=== PATIENT | male | born 1945 | race Caucasian/White ===

== ENCOUNTER 2023-08-26 13:48 | Outpatient (AMB) | payer OTHER, SELFPAY ==
--- NOTE | 2023-08-26 13:50 | A.OFFVIS_ITS ---
Vital Signs 08/26/23 13:54 Height 5 ft 10 in Weight 192 lb 4 oz BMI 27.6 BP 126/72 Blood Pressure Location Rt brachial Position Sitting Pulse 59 Pulse Source Pulse Oximeter Pulse Oximetry (%) 96 Oxygen Delivery Method Nasal Cannula Intake Visit Reasons: COPD Allergies No Known Allergies Allergy (Verified 08/26/23 14:01) HPI HPI COPD: Details: Nick is a pleasant 78 year old male, former smoker with 30 pack year history quit 30+ years ago, with underlying asthma, COPD, chronic respiratory failure on 2 L supplemental oxygen, CAD, Atrial fibrillation s/p ablation x 2 on pradaxa, AMY on CPAP and GERD. He was referred by PCP for pulmonary evaluation. He reports suboptimal control on Trelegy 100 mcg and albuterol MDI with moderate dyspnea on exertion and intermittent dry cough. He denies wheezing or chest tightness. He recently moved from [place] and was previously under the care of p ulmonology for COPD as well as AMY. He reports being due for PFT and denies any recent imaging. He has been on supplemental oxygen for the last three years. He receives his supplemental oxygen through [facility] in [place]. he has a concentrator at home and uses an Inogen device when he leaves the house. He checks his O2 at home, mostly at rest, and never gets readings below 95% on 2L. He reports a hosp italizations secondary to pneumonia last year otherwise has not required any prednisone or antibiotics. He reports sleep study many years ago, and has not had anyone monitoring compliance or effectiveness of therapy. Despite compliance of CPAP therapy he continues to be symptomatic with significant day time fatigue. He is under the care of cardiology. and denies any palpitations, dizziness or chest pain with exertion. He was in the [employer] x 3 years and reports toxic exposures to agent orange otherwise denies any occupational exposures. He denies any pertinent family history. [facility] Social History (Updated 08/26/23 @ 13:59 by Anju Parnell [facility]) Patient Tobacco Use Status: Former Tobacco user Quit Date: 1984 Cigarette Packs Per Day: 1 Review of Systems Const Denies chills, Denies excessive sweating, Denies fever(s), Denies headache(s) and Denies night sweats Eyes Denies dry eyes, Denies irritation and Denies itchy eyes ENT Reports Normal hearing present, Denies headache(s), Denies nasal congestion, Denies nasal discharge, Denies post nasal drip and Denies sore throat Card Denies chest pain, Denies chest pain at rest, Denies chest pain with activity, Denies claudication, Denies leg edema, Denies orthopnea and Denies paroxysmal nocturnal dyspnea Resp Denies chest congestion, Denies excessive phlegm production, Denies pain on inspiration, Denies pain with cough, Denies stridor and Denies wheezing Musc Denies myalgias Neuro Reports Normal hearing present and Denies headache(s) Endo Denies excessive sweating Sedrick/Lymph Denies lymphadenopathy Aller/Immun Denies itchy eyes, Denies seasonal rhinorrhea and Denies wheezing Physical Exam Vital Signs: Last Vital Signs Pulse 59 08/26/23 13:54 BP 126/72 08/26/23 13:54 Pulse Ox 96 08/26/23 13:54 Oxygen Delivery Method Nasal Cannula 08/26/23 13:54 BMI result Body Mass Index 27.6 Const General: cooperative, healthy appearing, comfortable, no acute distress, well developed and alert Nutritional Appearance: obese Orientation/consciousness: patient oriented x3 Limitations: no limitations HEENT Head: Yes normal to inspection, Yes normocephalic and Yes atraumatic Ears: hearing grossly normal bilaterally and external ears normal Eyes General: appearance normal, both eyes and all related structures Eyelids: Yes eyelids normal Sclerae: sclerae normal EOM: EOMs intact bilaterally Neck Neck: Yes normal visual inspection and Yes no lymphadenopathy Lymphatic: no lymphadenopathy noted Chest Chest palpation & inspection: normal inspection of the chest Resp Effort & Inspection: normal respiratory effort, able to speak in complete sentences, no audible wheezes, no cough, no stridor, not tachypneic, no tripod positioning and no use of accessory muscles Cardio Jugular venous distension: no JVD Rate: regular rate Skin Other: warm, dry General skin exam: no rashes or lesions noted Neuro General: patient oriented x3 Cranial nerves: Yes Normal hearing present Cognition (Neuro): normal cognition Gait exam (Neuro): Normal gait present Extrem General: Yes normal to inspection, Yes capillary refill normal, Yes no clubbing, cyanosis or edema and Yes no pedal edema Psych Appearance: grossly normal and well kempt Speech and movement: Normal speech and movement present and Clear speech present Affect: normal affect Attitude: cooperative Thought process: Normal thought process present Thought content: Normal thought content present Insight: Good insight present (Psych) Judgement: Good judgement present (Psych) Office Procedures 6 Minute Walk Time:: 14:42 SPO2 % at rest: 98 Pulse at rest: 61 SPO2 % during excercise: 97 Pulse during excercise: 95 SPO2 % after excercise: 97 Pulse after excercise: 78 Distance in yards walked: 150 Gissel Score: 6 Performance Observations:: Patient walked unassisted on level ground at a slow to moderate pace. Patient maintained O2 saturation of 97% or greater and pulse rate of 95 or less. No acute respiratory distress. Patient does report shortness of breath with walking on an incline or uphill or after physical activity like mowing the lawn. Patient did not require supplemental O2. [id number] - 6 Minute Walk Assessment & Plan Assessment & Plan (1) Nocturnal hypoxemia: Code(s): G47.34 - Idiopathic sleep related nonobstructive alveolar hypoventilation Category: Medical (2) Obstructive sleep apnea: Code(s): G47.33 - Obstructive sleep apnea (adult) (pediatric) Category: Medical (3) COPD (chronic obstructive pulmonary disease): Code(s): J44.9 - Chronic obstructive pulmonary disease, unspecified Category: Medical (4) Daytime somnolence: Code(s): R40.0 - Somnolence Category: Medical Plan Nick's symptoms are likely related to pulmonary, cardiac and deconditioning etiologies. He reports continued dyspnea on exertion, despite Trelegy 100 mcg, will increase to 200 mcg. Will also send for PFT and chest CT to assess COPD severity, as referral noted end stage COPD. Patient is also interested in switching CPAP therapy management to this office. Given that he is still symptomatic on current therapy and in need of a new machine, will send for in lab titration study. All questions were answered and patient is in agreement of plan. Will follow up to review results and response to inhaler. Orders: Orders PFT pulmonary function test Today J44.9 - Chronic obstructive pulmonary disease, unspecified AMB 6 minute walk Today J44.9 - Chronic obstructive pulmonary disease, unspecified CT chest wo IV con Today J44.9 - Chronic obstructive pulmonary disease, unspecified RT PSG in-lab sleep titration Today G47.33 - Obstructive sleep apnea (adult) (pediatric), G47.34 - Idiopathic sleep related nonobstructive alveolar hypoventilation, R40.0 - Somnolence Medications: New uvlwyendxtn-ufrpwwkyt-cigslyfx 200-62.5-25 mcg (Trelegy Ellipta) 1 inh inhalation DAILY 180 ea 1RF Coding Level of Care Code New Pt Level 4 (30561) Diagnoses Nocturnal hypoxemia G47.34 Obstructive sleep apnea G47.33 COPD (chronic obstructive pulmonary disease) J44.9 Daytime somnolence R40.0 CPT Codes Coding ([id number])
[2023-08-26 13:54] VITALS: BP 126/72; PULSE 59; O2SAT 96; BMI 27.6
[2023-08-26 15:19] VITALS: PULSE 61; O2SAT 98
== END 2023-08-26 15:25 | disposition home or self-care (01) ==
PROVIDERS: PCP Hospitalist; Visit Provider Nurse Practitioner Family
DX: G47.34 Idiopathic sleep related nonobstructive alveolar hypoventilation (principal); G47.33 Obstructive sleep apnea (adult) (pediatric); J44.9 Chronic obstructive pulmonary disease, unspecified; R40.0 Somnolence
CPT/HCPCS: 94618; 99204

== ENCOUNTER → 2023-08-26 13:48 | Outpatient (BNVA) | payer OTHER, SELFPAY | PROVIDERS: PCP Hospitalist; Visit Provider Nurse Practitioner Family | DX: J44.9 Chronic obstructive pulmonary disease, unspecified (principal); G47.34 Idiopathic sleep related nonobstructive alveolar hypoventilation; G47.33 Obstructive sleep apnea (adult) (pediatric); R40.0 Somnolence; Z79.899 Other long term (current) drug therapy | CPT/HCPCS: 94618; 99202 ==

== ENCOUNTER → 2023-10-02 19:30 | Outpatient (REF) | payer OTHER, SELFPAY | LOC: HO.SL 19:30 | PROVIDERS: PCP Hospitalist; Visit Provider Nurse Practitioner Family | DX: G47.33 Obstructive sleep apnea (adult) (pediatric) (principal); G47.34 Idiopathic sleep related nonobstructive alveolar hypoventilation; R40.0 Somnolence | CPT/HCPCS: 95811 ==

== ENCOUNTER → 2023-10-02 20:26 | Outpatient (BNV) | payer OTHER, SELFPAY | PROVIDERS: PCP Hospitalist; Visit Provider Internal Medicine | DX: G47.33 Obstructive sleep apnea (adult) (pediatric) (principal); G47.61 Periodic limb movement disorder | CPT/HCPCS: 95811 ==

== ENCOUNTER 2023-11-19 10:52 | Outpatient (AMB) | payer OTHER, SELFPAY ==
[2023-11-19 10:53] VITALS: BP 118/56; PULSE 66; O2SAT 99; BMI 26.3
--- NOTE | 2023-11-19 10:53 | A.OFFVIS_ITS ---
Vital Signs 11/19/23 10:53 Height 5 ft 10 in Weight 183 lb 4 oz BMI 26.3 BP 118/56 L Blood Pressure Location Lt brachial Position Sitting Pulse 66 Pulse Source Pulse Oximeter Pulse Oximetry (%) 99 Oxygen Delivery Method Room Air Intake Visit Reasons: COPD Allergies No Known Allergies Allergy (Verified 11/19/23 10:56) HPI HPI COPD: Details: Nick is a pleasant 78 year old male, former smoker with 30 pack year history quit 30+ years ago, with underlying asthma, COPD, chronic respiratory failure on 2 L supplemental oxygen, CAD, Atrial fibrillation s/p ablation x 2 on pradaxa, AMY on CPAP and GERD. He was referred by PCP for pulmonary evaluation. At the last visit, Trelegy was increased to 200 mcg wiith moderate improvement in symptoms. He continues to report dyspnea on exertion and intermittent dry cough. He denies wheezing or chest tightness. Since the last visit, he denies any vi sits to urgent care or hospitalizations related to respiratory distress. Today he presents to review PSG results. Of note, his psychologist recently switched his sleep aide and he continues to have diffuculties with prolonged sleep. He can not recall which medication was added, quietapine has been d/c. He was sent for PFT which is scheduled at the end of the month and was unable to make his chest CT appointment. [facility] Social History Patient Tobacco Use Status: Former Tobacco user Cigarette Packs Per Day: 1 Review of Systems Const Denies chills, Denies excessive sweating, Denies fever(s), Denies headache(s) and Denies night sweats Eyes Denies dry eyes, Denies irritation and Denies itchy eyes ENT Reports Normal hearing present, Denies headache(s), Denies nasal congestion, Denies nasal discharge, Denies post nasal drip and Denies sore throat Card Denies chest pain, Denies chest pain at rest, Denies chest pain with activity, Denies claudication, Denies leg edema, Denies orthopnea and Denies paroxysmal nocturnal dyspnea Resp Denies chest congestion, Denies excessive phlegm production, Denies pain on inspiration, Denies pain with cough, Denies stridor and Denies wheezing Musc Denies myalgias Neuro Reports Normal hearing present and Denies headache(s) Endo Denies excessive sweating Sedrick/Lymph Denies lymphadenopathy Aller/Immun Denies itchy eyes, Denies seasonal rhinorrhea and Denies wheezing Physical Exam Vital Signs: Last Vital Signs Pulse 66 11/19/23 10:53 BP 118/56 L 11/19/23 10:53 Pulse Ox 99 11/19/23 10:53 Oxygen Delivery Method Room Air 11/19/23 10:53 BMI result Body Mass Index 26.3 Const General: cooperative, healthy appearing, comfortable, no acute distress, well developed and alert Nutritional Appearance: obese Orientation/consciousness: patient oriented x3 Limitations: no limitations HEENT Head: Yes normal to inspection, Yes normocephalic and Yes atraumatic Ears: hearing grossly normal bilaterally and external ears normal Eyes General: appearance normal, both eyes and all related structures Eyelids: Yes eyelids normal Sclerae: sclerae normal EOM: EOMs intact bilaterally Neck Neck: Yes normal visual inspection and Yes no lymphadenopathy Lymphatic: no lymphadenopathy noted Chest Chest palpation & inspection: normal inspection of the chest Resp Effort & Inspection: normal respiratory effort, able to speak in complete sentences, no audible wheezes, no cough, no stridor, not tachypneic, no tripod positioning and no use of accessory muscles Auscultation: diminished lung sounds Cardio Jugular venous distension: no JVD Rate: regular rate Skin Other: warm, dry General skin exam: no rashes or lesions noted Neuro General: patient oriented x3 Cranial nerves: Yes Normal hearing present Cognition (Neuro): normal cognition Gait exam (Neuro): Normal gait present Extrem General: Yes normal to inspection, Yes capillary refill normal, Yes no clubbing, cyanosis or edema and Yes no pedal edema Psych Appearance: grossly normal and well kempt Speech and movement: Normal speech and movement present and Clear speech present Affect: normal affect Attitude: cooperative Thought process: Normal thought process present Thought content: Normal thought content present Insight: Good insight present (Psych) Judgement: Good judgement present (Psych) Assessment & Plan Assessment & Plan (1) Nocturnal hypoxemia: Code(s): G47.34 - Idiopathic sleep related nonobstructive alveolar hypoventilation Category: Medical (2) Obstructive sleep apnea: Code(s): G47.33 - Obstructive sleep apnea (adult) (pediatric) Category: Medical (3) COPD (chronic obstructive pulmonary disease): Code(s): J44.9 - Chronic obstructive pulmonary disease, unspecified Category: Medical (4) Periodic limb movement: Code(s): G47.61 - Periodic limb movement disorder Category: Medical Plan At this time, advised Nick to continue current regimen with Trelegy. He is aware if symptoms worsen to call office. PFT scheduled at the end of the month and he will need to reschedule his chest CT. Reviewed PSG which revealed significant PLM, which may be contributing to poor sleep efficiency as well as moderate AMY, despite poor sleep. Will send to sleep medicine for further evaluation of PLMD. He is going to be starting a new sleep aide, will consider repeat titration study if effective. All questions were answered and patient is in agreement of plan. Will follow up to review results or sooner if needed. Orders: Referrals Sleep Medicine Referral G47.61 - Periodic limb movement disorder Medications: Refilled cvcoujzduyk-tdrjpqtny-akcyjcpl 200-62.5-25 mcg (Trelegy Ellipta) 1 inh inha lation DAILY 180 ea 1RF Coding Level of Care Code Est Pt Level 4 (55137) Diagnoses Nocturnal hypoxemia G47.34 Obstructive sleep apnea G47.33 COPD (chronic obstructive pulmonary disease) J44.9 Periodic limb movement G47.61
== END 2023-11-19 11:28 | disposition home or self-care (01) ==
PROVIDERS: PCP Hospitalist; Visit Provider Nurse Practitioner Family
DX: G47.34 Idiopathic sleep related nonobstructive alveolar hypoventilation (principal); G47.33 Obstructive sleep apnea (adult) (pediatric); J44.9 Chronic obstructive pulmonary disease, unspecified; G47.61 Periodic limb movement disorder
CPT/HCPCS: 99214

== ENCOUNTER → 2023-11-19 10:52 | Outpatient (BNVA) | payer OTHER, SELFPAY | PROVIDERS: PCP Hospitalist; Visit Provider Nurse Practitioner Family | DX: J44.9 Chronic obstructive pulmonary disease, unspecified (principal); G47.34 Idiopathic sleep related nonobstructive alveolar hypoventilation; G47.33 Obstructive sleep apnea (adult) (pediatric); G47.61 Periodic limb movement disorder | CPT/HCPCS: 99212 ==

== ENCOUNTER 2023-11-24 11:21 | Outpatient (AMB) | payer MEDICARE, OTHER, SELFPAY ==
--- NOTE | 2023-11-24 11:27 | A.OFFPC_ITS ---
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 Allergies No Known Allergies Allergy (Verified 11/24/23 11:38) Tobacco use date assessed: 11/24/23 Fall risk assessment: 1 Fall in past year Last assessed Fall Risk: 11/24/23 Dental Screening Dental Screen Date: 11/24/23 Did you have a dental visit in the last 12 months?: Yes Did you have a dental problem in the last 6 months where you did not have access to dental care?: No Was dental information given to patient?: Patient has dentist HPI HPI Comments History of Present Illness Details This is an 78-year-old male with an extensive past medical history significant for CKD stage 3, agent orange exposure, glaucoma, COPD with chronic respiratory failure requiring supplemental oxygen, depression with anxiety, hyperlipidemia, TIA, memory loss, paroxysmal atrial fibrillation, obstructive sleep apnea and periodic limb movement presenting to establish care. The patient is accompanied by his , Rosie Oliva. He is a patient at the [facility]. Cardiovascular-diagnosed in 2017 with paroxysmal atrial fibrillation. He had 2 ablations. The 2nd was successful. He does not have a Cardiology at the [facility] because there is no cardiology provider there. He would like a referral to [facility]. Denies palpitations or chest pain. He had a TIA in ?2017. He is on atorvastatin, Pradaxa, diltiazem, Zetia, furosemide, metoprolol. Depression with anxiety-followed by Dr. Peñaloza. They are figuring out his medication for sleep. He is currently on quetiapine because another medication that was prescribed did not work. Tremor-taking primidone. Patient is up-to-date with eye exams. He sees audiology for hearing loss. He is having a 3 hour neuropsych evaluation this month for memory loss. Some days are better than others. He is forgetful. COPD/AMY-no hospitalizations within the past year. Required prednisone once in the spring. Established with [facility] pulmonology. On 2 L via nasal cannula but is somewhat non adherent. On CPAP at night. He had blood work done at the [facility] 2 weeks ago. Records requested. The patient has a chronic rash on his lower extremities. There are ring-like lesions on both legs. They appeared a year or 2 ago. He has seen 2 or 3 dermatologists, and had a biopsy completed that was nondiagnostic at the [facility]. They do not itch or bother him. They would like to know the cause of this rash. His says he has been tried on many medications. It has not responded to anything. ROS: Constitutional: No unexplained weight loss, fever, chills or night sweats. Respiratory: No increased shortness of breath or worsening cough Cardiovascular: No chest pain, chest pressure or chest discomfort. No pa lpitations or pedal edema. Gastrointestinal: No anorexia, nausea, vomiting or diarrhea. No abdominal pain or blood in stool. Neurologic: No headache, dizziness, syncope Hematologic/Lymphatics: No bleeding or swollen glands Psychiatric: No SI/HI. Physical exam: Constitutional: Alert, in no distress. Head: Normocephalic. Eyes: Pupils are equal, round and reactive to light. Extraocular muscles intact. Neck: Supple, Full range of motion. No lymphadenopathy. Respiratory: Clear to auscultation. Cardiovascular: S1 S2 regular. No murmurs. No carotid bruits. Gastrointestinal: Abdomen soft, non-tender, non-distended. Normal bowel sounds. No palpable masses. Neurologic: No focal neurological deficits. Extremities: Warm and well perfused. No clubbing, cyanosis or edema. Numerous moderate to large sized annular lesions on the lower extremities with central clearing and no scaling. 3 mm hypertrophic scab on the forehead and raised, rough, light brown 6 mm lesion behind the left earlobe with irregular borders. Psychiatric: Normal mood and affect [facility] Medical History (Updated 11/24/23 @ 13:09 by BETINA Salvador) CKD stage 3a, GFR 45-59 ml/min Glaucoma GERD (gastroesophageal reflux disease) Agent orange exposure Bilateral hearing loss COPD (chronic obstructive pulmonary disease) Periodic limb movement Nocturnal hypoxemia Depression with anxiety TIA (transient ischemic attack) Neoplasm of skin Skin rash Memory loss Imbalance A-fib Hypercholesteremia Family History (Updated 11/24/23 @ 11:56 by Alannah Fernandez CMA) Mother Breast cancer Cardiovascular disease Social History (Updated 11/24/23 @ 11:40 by Alannah Fernandez CMA) Housing: House Patient Tobacco Use Status: Former Tobacco user Cigarette Packs Per Day: 1 Years Smoked: 40 service: Yes Current occupational status: retired Cognitive needs: No Hearing needs: Yes (Hearing loss) Vision needs: No Questionnaire PHQ-9 Over the last 2 weeks, how often have you been bothered by any of the following problems? 1. Little interest or pleasure in doing things: not at all 2. Feeling down, depressed, or hopeless: not at all 3. Trouble falling or staying asleep, or sleeping too much: not at all 4. Feeling tired or having little energy: not at all 5. Poor appetite or overeating: not at all 6. Feeling bad about yourself - or that you are a failure or have let yourself or your family down: not at all 7. Trouble concentrating on things, such as reading the newspaper or watching television: not at all 8. Moving or speaking so slowly that other people could have noticed. Or the opposite - being so fidgety or restless that you have been moving around a lot more than usual: not at all 9. Thoughts that you would be better off or of hurting yourself in some way: not at all Total score: 0 Depression Screening Interpretation: Negative Depression Screening Done: Yes 46477 - PHQ-9 Billing: Yes Source: Developed by Drs. Sherif Thomson, Tomasa Baker, Ishmael Alas and colleagues, with an educational aftab from [employer]. Thrive Questionnaire Date Thrive assessed: 11/24/23 I am a: Patient What is your living situation today?: I have a steady place to live Within the past 12 months, did the food you bought not last and you didn't have the money to get more?: Never true Within the past 12 months, did you worry whether your food would run out before you got money to buy more?: Never true Do you have trouble paying for medicines?: No Do you have trouble getting transportation to medical appointments?: No Do you have trouble paying your heating and electricity bill?: No Do you have trouble taking care of your child, family member or friend?: No Do you have trouble with day-to-day activities such as bathing, preparing meals, shopping, managing finances, etc.?: No Are you currently unemployed and looking for a job?: No Are you interested in more education?: No Please select the resources that you would like help with: None Currently or been in a relationship where the following occur: No concerns reported THRIVE Score: 0 AUDIT C Alcohol Use Questionnaire (AUDIT-C) 1. How often do you have a drink containing alcohol?: 4 or more times a week 2. How many drinks containing alcohol do you have on a typical day when you are drinking?: 1 or 2 3. How often do you have six or more drinks on one occasion?: Never Total Score: 4 FAYE-7 AMB Questionnaire FAYE-7 Date FAYE - 7 assessed: 11/24/23 Feeling nervous, anxious, or on edge: 0 = Not at all Not being able to stop or control worryin = Not at all Worrying too much about different things: 0 = Not at all Trouble relaxin = Not at all Being so restless that it is hard to sit still: 0 = Not at all Becoming easily annoyed or irritable: 0 = Not at all Feeling afraid as if something awful might happen: 0 = Not at all Total FAYE-7 score (0-4 normal; 5-9 mild; 10-14 moderate; 15-21 severe): 0 Source: Developed by Drs. Sherif Thomson, Tomasa Baker, Ishmael Alas and colleagues, with an educational aftab from [employer]. FAYE-7 Assessment Billing FAYE-7 Assessment Tool: FAYE-7 Assessment 76560 Physical exam (Primary Care) Vital Signs: Last Vital Signs Temp 98.1 F 11/24/23 11:41 Pulse 71 11/24/23 11:41 Resp 16 11/24/23 11:41 BP 128/66 11/24/23 11:41 Pulse Ox 95 11/24/23 11:41 Oxygen Delivery Method Room Air 11/24/23 11:41 BMI result Body Mass Index 22.8 Tobacco/Smoking Status: Tobacco use Status Tobacco use date assessed 11/24/23 11/24/23 11:40 Patient Tobacco Use Status Former Tobacco user 11/24/23 11:40 PHQ-9: PHQ-9 Score PHQ-9: Total score 0 11/24/23 12:25 Depression Screening Interpretation: Negative Thrive Assessment: Date of Thrive Assessment Date Thrive assessed 11/24/23 11/24/23 11:57 Currently or been in a relationship where the following occur: No concerns reported Assessment and Plan Assessment & Plan (1) COPD (chronic obstructive pulmonary disease): Code(s): J44.9 - Chronic obstructive pulmonary disease, unspecified Qualifiers: COPD type: chronic bronchitis Chronic bronchitis type: simple Qualified Code(s): J41.0 - Simple chronic bronchitis (2) Obstructive sleep apnea: Code(s): G47.33 - Obstructive sleep apnea (adult) (pediatric) (3) A-fib: Code(s): I48.91 - Unspecified atrial fibrillation Qualifiers: Atrial fibrillation type: paroxysmal Qualified Code(s): I48.0 - Paroxysmal atrial fibrillation (4) Memory loss: Code(s): R41.3 - Other amnesia (5) Skin rash: Code(s): R21 - Rash and other nonspecific skin eruption (6) Neoplasm of skin: Code(s): D49.2 - Neoplasm of unspecified behavior of bone, soft tissue, and skin (7) Depression with anxiety: Code(s): F41.8 - Other specified anxiety disorders Plan The patient will continue his current medications that are prescribed. 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 Refer to [facility] Cardiology for routine management. Referred to [facility] Dermatology for a 2nd opinion regarding lower extremity rash and for evaluation of neoplasm on the forehead and left earlobe. Proceed with neuropsych evaluation for memory loss. Follow up in 6 months for med review. Orders: Referrals Cardiology Referral I48.91 - Unspecified atrial fibrillation Dermatology Referral D49.2 - Neoplasm of unspecified behavior of bone, soft tissue, and skin, R21 - Rash and other nonspecific skin eruption Coding Level of Care Code New Pt Level 4 (25093) Complex EM visit Add On G2211 Diagnoses Simple chronic bronchitis J41.0 COPD type: chronic bronchitis Chronic bronchitis type: simple Obstructive sleep apnea G47.33 Paroxysmal atrial fibrillation I48.0 Atrial fibrillation type: paroxysmal Memory loss R41.3 Skin rash R21 Neoplasm of skin D49.2 Depression with anxiety F41.8 Additional Codes FAYE-7 Assessment Billing - FAYE-7 Assessment Tool: FAYE-7 Assessment [id number] ([id number])
[2023-11-24 11:41] VITALS: BP 128/66; PULSE 71; RESP 16; TEMP 36.7; O2SAT 95; BMI 22.8
== END 2023-11-24 12:44 | disposition home or self-care (01) ==
PROVIDERS: PCP Hospitalist; Visit Provider Physician Assistant Medical
DX: J41.0 Simple chronic bronchitis (principal); I48.0 Paroxysmal atrial fibrillation; G47.33 Obstructive sleep apnea (adult) (pediatric); R41.3 Other amnesia; R21 Rash and other nonspecific skin eruption; D49.2 Neoplasm of unspecified behavior of bone, soft tissue, and skin; F41.8 Other specified anxiety disorders
CPT/HCPCS: 99204

== ENCOUNTER 2023-12-20 09:42 | Outpatient (REF) | payer OTHER, SELFPAY ==
--- NOTE | 2023-12-20 10:00 | PFT_ITS ---
Flows: FEV1: 66 % of predicted at 1.88 L FVC: 92 % of predicted at 3.57 L FEV1/FVC: 53 % Bronchodilator response: Present Volumes: Total lung capacity: 74 % of predicted at 5.23 L Residual volume: 75 % of predicted at 2.10 L Slow vital capacity: 78 % of predicted at 3.14 L Expiratory reserve volume: 76 % of predicted at 0.94 L Diffusion capacity: Patient unable to perform diffusion capacity maneuver. Impression: Moderate obstructive ventilatory defect with positive bronchodilator response. Patient unable to perform diffusion capacity maneuver. MTDD
[2023-12-20 10:15] VITALS: PULSE 48; RESP 16; O2SAT 97
== END 2023-12-20 09:43 | disposition home or self-care (01) ==
LOC: HO.RESP 09:42
PROVIDERS: PCP Hospitalist; Visit Provider Nurse Practitioner Family
DX: J44.9 Chronic obstructive pulmonary disease, unspecified (principal)
CPT/HCPCS: 94010; 94640; 94727; 94729

== ENCOUNTER 2024-01-09 13:25 | Outpatient (REF) | payer OTHER, SELFPAY ==
--- NOTE | ~2024-01-09 | CT_ITS ---
EXAMINATION: CT CHEST WITHOUT CONTRAST CLINICAL INFORMATION: COPD. COMPARISON: None available. TECHNIQUE: Multidetector volumetric CT imaging of the chest was done. Axial MIP volume rendering provided. Sagittal and coronal reformatted images were obtained. This CT examination was performed using dose optimization techniques as appropriate, variously including the following: *Automated exposure control *Adjustment of mA and/or kV according to patient size (this includes techniques or standardized protocols for targeted exams where dose is matched to indication/reason for exam; i.e. 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 LUNGS: At the lateral right apex (11:39 and 47), 2 noncalcified 2 mm nodules are seen. Within the anterior segment of the right upper lobe (11:72 and 78), there are 2 noncalcified 2 mm nodules. A benign, calcified granuloma is seen inferiorly within the right upper lobe (11:1). There are a few further scattered minute benign, calcified granulomas. At the anterior left apex (11:27 and 31), 3 mm and 2 mm noncalcified nodules are seen. Within the upper lingula (11:27), a 3 mm noncalcified nodule is seen. Within the superior segment of the left lower lobe (11:77), a 3 mm noncalcified nodule is seen. There are a few scattered tiny punctate benign, calcified right lung granulomas. No mass, infiltrate or groundglass opacity is seen. There are very mild right apical paraseptal and centrilobular emphysematous changes. A small focus of pleural and parenchymal scarring is seen at the posterior right apex. No mass, infiltrate or groundglass opacity is seen. There is mild generalized small airway thickening. The central airways appear patent. MEDIASTINUM: The thyroid is unremarkable. There is no thoracic aortic aneurysm. There are moderate atherosclerotic calcifications of the great vessel origins and thoracic aorta. No mediastinal or hilar lymphadenopathy is seen. CORONARY ARTERY CALCIFICATION: Mild to moderate. PLEURA: There is no pleural effusion. No pleural mass or thickening. AXILLA: No lymphadenopathy. UPPER ABDOMEN: There are scattered low-attenuation hepatic probable cysts or benign hemangiomas, mostly too small to fully characterize with CT. The adrenal glands are unremarkable. OSSEOUS STRUCTURES: There is multi-level lower cervical and thoracic spondylosis. No acute or aggressive osseous finding is seen. CT/CT chest wo IV con IMPRESSION: 1. There are small bilateral noncalcified, nonspecific and calcified lung nodules. The largest noncalcified nodules, on the left, measure 3 mm. According to the UPDATED 2017 Fleischner Society recommendations, the advised follow-up imaging for solid nodules < 6 mm is: LOW RISK PATIENT: No routine follow-up. HIGH RISK PATIENT: Optional CT at 12 months. 2. No mass, infiltrate or groundglass opacity is seen. 3. There are very mild paraseptal and centrilobular emphysematous changes. 4. There is mild generalized small airway thickening, which can be associated with acute bronchiolitis or reactive airways disease. 5. No thoracic lymphadenopathy or pleural effusion is seen. 6. There is mild to moderate coronary artery atherosclerotic calcification. 7. There is multi-level cervicothoracic spondylosis. No acute or aggressive osseous finding is noted. 8. There are low-attenuation hepatic probable cysts or benign hemangiomas, too small to fully characterize with CT. If of continued clinical concern (i.e., history of hepatocellular disease or known malignancy), these could be more fully evaluated with abdominal ultrasound or MRI. Fleischner guidelines were followed. Electronically signed by: Osorio Lepe MD 01/16/2024 12:39 PM EDT
== END 2024-01-09 13:26 | disposition home or self-care (01) ==
LOC: HO.CT 13:25
PROVIDERS: PCP Hospitalist; Visit Provider Nurse Practitioner Family
DX: J44.9 Chronic obstructive pulmonary disease, unspecified (principal)
CPT/HCPCS: 71250

== ENCOUNTER 2024-01-16 13:57 | Outpatient (AMB) | payer OTHER, SELFPAY ==
--- NOTE | 2024-01-16 12:58 | A.OFFVIS_ITS ---
Vital Signs 01/16/24 14:01 Height 5 ft 10 in Weight 183 lb 8 oz BMI 26.3 BP 150/64 H Blood Pressure Location Rt brachial Position Sitting Pulse 57 Pulse Source Pulse Oximeter Pulse Oximetry (%) 95 Oxygen Delivery Method Nasal Cannula Oxygen Flow Rate 2 Intake Visit Reasons: COPD Allergies No Known Allergies Allergy (Verified 01/16/24 14:04) HPI HPI COPD: Details: Nick is a pleasant 78 year old male, former smoker with 30 pack year history quit 30+ years ago, with underlying asthma, COPD, chronic respiratory failure on 2 L supplemental oxygen, CAD, Atrial fibrillation s/p ablation x 2 on pradaxa, AMY on CPAP and GERD. He is currently using Trelegy 200 mcg and albuterol MDI with good control of respiratory symptoms. At the last visit, he noted difficulties with sleep and psychiatrist was switching sleep aide. Prior PSG could not definitely state patient does not have AMY as he did not have sufficient sleep efficiency. He has a follow up with psychiatrist to discuss next week. Today he presents to review PFT and Chest CT results. [facility] Medical History (Updated 01/16/24 @ 18:35 by Kaitlynn Epps NP) CKD stage 3a, GFR 45-59 ml/min Glaucoma GERD (gastroesophageal reflux disease) Agent orange exposure Bilateral hearing loss COPD (chronic obstructive pulmonary disease) Periodic limb movement Nocturnal hypoxemia Depression with anxiety TIA (transient ischemic attack) Neoplasm of skin Skin rash Memory loss Imbalance A-fib Hypercholesteremia Family History (Updated 11/24/23 @ 11:56 by Alannah Fernandez CMA) Mother Breast cancer Cardiovascular disease Social History Housing: House Patient Tobacco Use Status: Former Tobacco user Cigarette Packs Per Day: 1 Years Smoked: 40 service: Yes Current occupational status: retired Cognitive needs: No Hearing needs: Yes (Hearing loss) Vision needs: No Review of Systems Const Denies chills, Denies excessive sweating, Denies fever(s), Denies headache(s) and Denies night sweats Eyes Denies dry eyes, Denies irritation and Denies itchy eyes ENT Reports Normal hearing present, Denies headache(s), Denies nasal congestion, Denies nasal discharge, Denies post nasal drip and Denies sore throat Card Denies chest pain, Denies chest pain at rest, Denies chest pain with activity, Denies claudication, Denies leg edema, Denies orthopnea and Denies paroxysmal nocturnal dyspnea Resp Denies chest congestion, Denies excessive phlegm production, Denies pain on inspiration, Denies pain with cough, Denies stridor and Denies wheezing Musc Denies myalgias Neuro Reports Normal hearing present and Denies headache(s) Endo Denies excessive sweating Sedrick/Lymph Denies lymphadenopathy Aller/Immun Denies itchy eyes, Denies seasonal rhinorrhea and Denies wheezing Physical Exam Vital Signs: Last Vital Signs Pulse 57 01/16/24 14:01 BP 150/64 H 01/16/24 14:01 Pulse Ox 95 01/16/24 14:01 Oxygen Delivery Method Nasal Cannula 01/16/24 14:01 Oxygen Flow Rate 2 01/16/24 14:01 BMI result Body Mass Index 26.3 Const General: cooperative, healthy appearing, comfortable, no acute distress, well developed and alert Nutritional Appearance: obese Orientation/consciousness: patient oriented x3 Limitations: no limitations HEENT Head: Yes normal to inspection, Yes normocephalic and Yes atraumatic Ears: hearing grossly normal bilaterally and external ears normal Eyes General: appearance normal, both eyes and all related structures Eyelids: Yes eyelids normal Sclerae: sclerae normal EOM: EOMs intact bilaterally Neck Neck: Yes normal visual inspection and Yes no lymphadenopathy Lymphatic: no lymphadenopathy noted Chest Chest palpation & inspection: normal inspection of the chest Resp Effort & Inspection: normal respiratory effort, able to speak in complete sentences, no audible wheezes, no cough, no stridor, not tachypneic, no tripod positioning and no use of accessory muscles Auscultation: clear to auscultation bilaterally Cardio Jugular venous distension: no JVD Rate: regular rate Rhythm: regular rhythm Skin Other: warm, dry General skin exam: no rashes or lesions noted Neuro General: patient oriented x3 Cranial nerves: Yes Normal hearing present Cognition (Neuro): normal cognition Gait exam (Neuro): Normal gait present Extrem General: Yes normal to inspection, Yes capillary refill normal, Yes no clubbing, cyanosis or edema and Yes no pedal edema Psych Appearance: grossly normal and well kempt Speech and movement: Normal speech and movement present and Clear speech present Affect: normal affect Attitude: cooperative Thought process: Normal thought process present Thought content: Normal thought content present Insight: Good insight present (Psych) Judgement: Good judgement present (Psych) Results Reviewed Results Reviewed: Nick Oliva??78??M??1945 ? Allergy/Adv: No Known Allergies Close Chest CT (Signed) Osorio Lepe - 01/09/24 Launch?Image [place] [address] CT Scan Report Signed Patient: Nick Oliva MR#: [id number] : 1945 Acct:[id number] Age/Sex: 78 / M ADM Date: 01/09/24 Loc: HO.CT Attending Dr: Kaitlynn Epps NP Ordering Physician: Kaitlynn Epps NP Date of Service: 01/09/24 Procedure(s): CT chest wo IV con Accession Number(s): [id number] cc: Steven Dobson PA-C; Kaitlynn Epps NP~ EXAMINATION: CT CHEST WITHOUT CONTRAST CLINICAL INFORMATION: COPD. COMPARISON: None available. TECHNIQUE: Multidetector volumetric CT imaging of the chest was done. Axial MIP volume rendering provided. Sagittal and coronal reformatted images were obtained. This CT examination was performed using dose optimization techniques as appropriate, variously including the following: *Automated exposure control *Adjustment of mA and/or kV according to patient size (this includes techniques or standardized protocols for targeted exams where dose is matched to indication/reason for exam; i.e. 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 LUNGS: At the lateral right apex (11:39 and 47), 2 noncalcified 2 mm nodules are seen. Within the anterior segment of the right upper lobe (11:72 and 78), there are 2 noncalcified 2 mm nodules. A benign, calcified granuloma is seen inferiorly within the right upper lobe (11:1). There are a few further scattered minute benign, calcified granulomas. At the anterior left apex (11:27 and 31), 3 mm and 2 mm noncalcified nodules are seen. Within the upper lingula (11:27), a 3 mm noncalcified nodule is seen. Within the superior segment of the left lower lobe (11:77), a 3 mm noncalcified nodule is seen. There are a few scattered tiny punctate benign, calcified right lung granulomas. No mass, infiltrate or groundglass opacity is seen. There are very mild right apical paraseptal and centrilobular emphysematous changes. A small focus of pleural and parenchymal scarring is seen at the posterior right apex. No mass, infiltrate or groundglass opacity is seen. There is mild generalized small airway thickening. The central airways appear patent. MEDIASTINUM: The thyroid is unremarkable. There is no thoracic aortic aneurysm. There are moderate atherosclerotic calcifications of the great vessel origins and thoracic aorta. No mediastinal or hilar lymphadenopathy is seen. CORONARY ARTERY CALCIFICATION: Mild to moderate. PLEURA: There is no pleural effusion. No pleural mass or thickening. AXILLA: No lymphadenopathy. UPPER ABDOMEN: There are scattered low-attenuation hepatic probable cysts or benign hemangiomas, mostly too small to fully characterize with CT. The adrenal glands are unremarkable. OSSEOUS STRUCTURES: There is multi-level lower cervical and thoracic spondylosis. No acute or aggressive osseous finding is seen. CT/CT chest wo IV con IMPRESSION: 1. There are small bilateral noncalcified, nonspecific and calcified lung nodules. The largest noncalcified nodules, on the left, measure 3 mm. According to the UPDATED 2017 Fleischner Society recommendations, the advised follow-up imaging for solid nodules < 6 mm is: LOW RISK PATIENT: No routine follow-up. HIGH RISK PATIENT: Optional CT at 12 months. 2. No mass, infiltrate or groundglass opacity is seen. 3. There are very mild paraseptal and centrilobular emphysematous changes. 4. There is mild generalized small airway thickening, which can be associated with acute bronchiolitis or reactive airways disease. 5. No thoracic lymphadenopathy or pleural effusion is seen. 6. There is mild to moderate coronary artery atherosclerotic calcification. 7. There is multi-level cervicothoracic spondylosis. No acute or aggressive osseous finding is noted. 8. There are low-attenuation hepatic probable cysts or benign hemangiomas, too small to fully characterize with CT. If of continued clinical concern (i.e., history of hepatocellular disease or known malignancy), these could be more fully evaluated with abdominal ultrasound or MRI. Fleischner guidelines were followed. Electronically signed by: Osorio Lepe MD 01/16/2024 12:39 PM EDT RP Dictated By: Osorio Lepe MD Signed By: <Electronically signed by Osorio Lepe MD in OV> 01/16/24 1239 DD/ 1349 TD/TT: 01/09/24 1429 Power System Operator: SANGITA Assessment & Plan Assessment & Plan (1) Nocturnal hypoxemia: Code(s): G47.34 - Idiopathic sleep related nonobstructive alveolar hypoventilation Category: Medical (2) Obstructive sleep apnea: Code(s): G47.33 - Obstructive sleep apnea (adult) (pediatric) Category: Medical (3) Multiple pulmonary nodules: Code(s): R91.8 - Other nonspecific abnormal finding of lung field Category: Medical Plan Reviewed PFT which revealed moderate obstructive ventilatory defect with positive bronchodilator response. Patient unable to perform diffusion capacity maneuver. Discussed repeating DLCO however patient declined. He reports good control of respiratory symptoms with current regimen, advised to continue. Reviewed chest CT which revealed multiple small bilateral noncalcified, nonspecific and calcified, < 3mm. Will repeat chest CT in one year to assess stability. He has an upcoming appointment with sleep medicine through [facility] for further evaluation of PLMD. He will likely be starting a new sleep aide, will consider repeat titration study if effective. All questions were answered and patient is in agreement of plan. Will follow up in 3 months or sooner if nee ded. Orders: Orders CT chest wo IV con 11 Months R91.8 - Other nonspecific abnormal finding of lung field Coding Level of Care Code Est Pt Level 4 (98043) Diagnoses Nocturnal hypoxemia G47.34 Obstructive sleep apnea G47.33 Multiple pulmonary nodules R91.8
[2024-01-16 14:01] VITALS: BP 150/64; PULSE 57; O2SAT 95; BMI 26.3
== END 2024-01-16 14:24 | disposition home or self-care (01) ==
PROVIDERS: PCP Hospitalist; Referring Provider Nurse Practitioner Family; Visit Provider Nurse Practitioner Family
DX: G47.34 Idiopathic sleep related nonobstructive alveolar hypoventilation (principal); G47.33 Obstructive sleep apnea (adult) (pediatric); R91.8 Other nonspecific abnormal finding of lung field
CPT/HCPCS: 99214

== ENCOUNTER → 2024-01-16 13:57 | Outpatient (BNVA) | payer OTHER, SELFPAY | PROVIDERS: PCP Hospitalist; Visit Provider Nurse Practitioner Family | DX: J44.9 Chronic obstructive pulmonary disease, unspecified (principal); J96.10 Chronic respiratory failure, unspecified whether with hypoxia or hypercapnia; G47.33 Obstructive sleep apnea (adult) (pediatric); G47.34 Idiopathic sleep related nonobstructive alveolar hypoventilation; R91.8 Other nonspecific abnormal finding of lung field; Z87.891 Personal history of nicotine dependence; Z99.89 Dependence on other enabling machines and devices; Z99.81 Dependence on supplemental oxygen | CPT/HCPCS: 99212 ==

== ENCOUNTER 2024-04-20 13:50 | Outpatient (AMB) | payer OTHER, SELFPAY ==
--- NOTE | 2024-04-20 13:56 | MHC.OFFVIS ---
Vital Signs 04/20/24 13:58 Height 5 ft 10 in Weight 188 lb BMI 27.0 BP 140/70 H Blood Pressure Location Rt brachial Position Sitting Pulse 86 Pulse Source Pulse Oximeter Pulse Oximetry (%) 94 Oxygen Delivery Method Nasal Cannula Oxygen Flow Rate 2 Intake Visit Reasons: COPD Assistant Gm Of Content & Delivery Required: No Special Education Supervisor: Special Education Supervisor offered & declined Allergies No Known Allergies Allergy (Verified 04/20/24 14:05) Medication List - Last Reconciled 04/20/24 by Sandra Hansen LPN albuterol sulfate 90 mcg/actuation 2 puffs inhalation Q6H PRN atorvastatin 80 mg PO BEDTIME dabigatran etexilate (Pradaxa) 150 mg PO DAILY diltiazem HCl ER 240 mg PO DAILY ezetimibe 10 mg PO DAILY [id number] 200-62.5-25 mcg (Trelegy Ellipta) 1 inh inhalation DAILY furosemide 20 mg PO DAILY PRN metoprolol tartrate 25 mg PO BID omeprazole 20 mg PO DAILY primidone 50 mg PO BEDTIME sertraline 100 mg PO DAILY HPI HPI COPD: Details: Nick is a pleasant 78 year old male, former smoker with 30 pack year history quit 30+ years ago, with underlying asthma, COPD, chronic respiratory failure on 2 L supplemental oxygen with exertion and NOC, CAD, Atrial fibrillation s/p ablation x 2 on pradaxa, AMY on CPAP and GERD. He is accompanied by his . He reports moderate control of respiratory symptoms on Trelegy 200 mcg, using albuterol MDI infrequently. He checks oxygen saturation frequently, never below 92%. We had previously sent for titration study as he reported increased symptoms of AMY despite CPAP therapy. He was initially started on CPAP therapy years ago in [place]. Unfortunately, unable to determine appropriate pressures due to very poor sleep efficiency. He has noted improvements in sleep with the use of Trazadone and continues with symptoms of AMY, despite using CPAP therapy consistently. Of note, he is undergoing evaluation for possible dementia through [facility] and has an upcoming brain MRI. [facility] Medical History (Updated 01/16/24 @ 18:35 by Kaitlynn Epps NP) CKD stage 3a, GFR 45-59 ml/min Glaucoma GERD (gastroesophageal reflux disease) Agent orange exposure Bilateral hearing loss COPD (chronic obstructive pulmonary disease) Periodic limb movement Nocturnal hypoxemia Depression with anxiety TIA (transient ischemic attack) Neoplasm of skin Skin rash Memory loss Imbalance A-fib Hypercholesteremia Family History (Updated 11/24/23 @ 11:56 by Alannah Fernandez CMA) Mother Breast cancer Cardiovascular disease Social History Housing: House Patient Tobacco Use Status: Former Tobacco user Cigarette Packs Per Day: 1 Years Smoked: 40 service: Yes Current occupational status: retired Cognitive needs: No Hearing needs: Yes (Hearing loss) Vision needs: No Review of Systems Const Denies chills, Denies excessive sweating, Denies fever(s), Denies headache(s) and Denies night sweats Eyes Denies dry eyes, Denies irritation and Denies itchy eyes ENT Reports Normal hearing present, Denies headache(s), Denies nasal congestion, Denies nasal discharge, Denies post nasal drip and Denies sore throat Card Denies chest pain, Denies chest pain at rest, Denies chest pain with activity, Denies claudication, Denies leg edema, Denies orthopnea and Denies paroxysmal nocturnal dyspnea Resp Denies chest congestion, Denies excessive phlegm production, Denies pain on inspiration, Denies pain with cough and Denies stridor Musc Denies myalgias Neuro Reports Normal hearing present and Denies headache(s) Endo Denies excessive sweating Sedrick/Lymph Denies lymphadenopathy Aller/Immun Denies itchy eyes and Denies seasonal rhinorrhea Physical Exam Vital Signs: Last Vital Signs Pulse 86 04/20/24 13:58 BP 140/70 H 04/20/24 13:58 Pulse Ox 94 04/20/24 13:58 Oxygen Delivery Method Nasal Cannula 04/20/24 13:58 Oxygen Flow Rate 2 04/20/24 13:58 BMI result Body Mass Index 27.0 Const General: cooperative, healthy appearing, comfortable, no acute distress, well developed and alert Nutritional Appearance: obese Orientation/consciousness: patient oriented x3 Limitations: no limitations HEENT Head: Yes normal to inspection, Yes normocephalic and Yes atraumatic Ears: hearing grossly normal bilaterally and external ears normal Eyes General: appearance normal, both eyes and all related structures Eyelids: Yes eyelids normal Sclerae: sclerae normal EOM: EOMs intact bilaterally Neck Neck: Yes normal visual inspection and Yes no lymphadenopathy Lymphatic: no lymphadenopathy noted Chest Chest palpation & inspection: normal inspection of the chest Resp Effort & Inspection: normal respiratory effort, able to speak in complete sentences, no audible wheezes, no cough, no stridor, not tachypneic, no tripod positioning and no use of accessory muscles Auscultation: clear to auscultation bilaterally Cardio Jugular venous distension: no JVD Rate: regular rate Rhythm: regular rhythm Skin Other: warm, dry General skin exam: no rashes or lesions noted Neuro General: patient oriented x3 Cranial nerves: Yes Normal hearing present Cognition (Neuro): normal cognition Gait exam (Neuro): Normal gait present Extrem General: Yes normal to inspection, Yes capillary refill normal, Yes no clubbing, cyanosis or edema and Yes no pedal edema Psych Appearance: grossly normal and well kempt Speech and movement: Normal speech and movement present and Clear speech present Affect: normal affect Attitude: cooperative Thought process: Normal thought process present Thought content: Normal thought content present Insight: Good insight present (Psych) Judgement: Good judgement present (Psych) Assessment & Plan Assessment & Plan (1) Obstructive sleep apnea: Code(s): G47.33 - Obstructive sleep apnea (adult) (pediatric) Category: Medical (2) Nocturnal hypoxemia: Code(s): G47.34 - Idiopathic sleep related nonobstructive alveolar hypoventilation Category: Medical (3) Multiple pulmonary nodules: Code(s): R91.8 - Other nonspecific abnormal finding of lung field Category: Medical (4) Daytime somnolence: Code(s): R40.0 - Somnolence Category: Medical Plan At this time, advised to continue Trelegy and DuoNeb PRN. Would like to schedule 6MWT as unable to perform today to recheck oxygen requirements. Often times patient notes his O2 is up to 98% on 2L. He has an upcoming appointment with sleep medicine through [facility] for further evaluation of PLMD in . Patient continues to report symptoms of nonrestorative sleep and daytime fatigue despite CPAP use, will send for inlab titration study to ensure optimal pressures. He will also bring in his CPAP machine tomorrow so we can review the settings, as there is no option to access. All questions were answered and patient is in agreement of plan. Will follow up after 6MWT and CPAP check tomorrow then schedule a follow up after PSG or sooner if needed. Orders: Orders RT PSG in-lab sleep titration Today G47.33 - Obstructive sleep apnea (adult) (pediatric), G47.34 - Idiopathic sleep related nonobstructive alveolar hypoventilation, R40.0 - Somnolence Coding Level of Care Code Est Pt Level 4 (27835) Diagnoses Obstructive sleep apnea G47.33 Nocturnal hypoxemia G47.34 Multiple pulmonary nodules R91.8 Daytime somnolence R40.0
[2024-04-20 13:58] VITALS: BP 140/70; PULSE 86; O2SAT 94; BMI 27.0
== END 2024-04-20 14:40 | disposition home or self-care (01) ==
PROVIDERS: PCP Hospitalist; Visit Provider Nurse Practitioner Family
DX: G47.33 Obstructive sleep apnea (adult) (pediatric) (principal); G47.34 Idiopathic sleep related nonobstructive alveolar hypoventilation; R91.8 Other nonspecific abnormal finding of lung field; R40.0 Somnolence
CPT/HCPCS: 99214

== ENCOUNTER → 2024-04-20 13:50 | Outpatient (BNVA) | payer OTHER, SELFPAY | PROVIDERS: PCP Hospitalist; Visit Provider Nurse Practitioner Family | DX: G47.33 Obstructive sleep apnea (adult) (pediatric) (principal); G47.34 Idiopathic sleep related nonobstructive alveolar hypoventilation; R91.8 Other nonspecific abnormal finding of lung field; R40.0 Somnolence | CPT/HCPCS: 99212 ==

== ENCOUNTER 2024-05-06 08:43 | Outpatient (RCR) | payer MEDICARE, OTHER, SELFPAY ==
--- NOTE | 2024-05-06 10:57 | MHC.PT.EP ---
[facility] [place] Office [place] Office [place] Office [address] Courtney Rosales [address] [phone] F: [phone] F: [phone] F: [phone] F: [phone] Physical Therapy Plan of Care Date of Evaluation: 05/06/24 Date of Surgery: Diagnosis: Vertigo, Vestibular rehab H81.4, date 05/05/[address] Arnel MD, FACS Assessment: Pt is an 78 y/o male, with PMH significant for CKD stage 3a, GFR 45-59 ml/min Glaucoma GERD (gastroesophageal reflux disease) Agent orange exposure Bilateral hearing loss COPD (chronic obstructive pulmonary disease) on supplemental 02 Periodic limb movement Nocturnal hypoxemia Depression with anxiety TIA (transient ischemic attack) Neoplasm of skin, Afib with cardioversion x 2 (last attempt failed per pt) Pt was referred to PT on Vertigo, Vestibular rehab H81.4, date 05/05/24 referred to PT by Dr. Arnel MD, FACS with report of being seen in his office yesterday. Pt reports history of dizziness for the past month, two previous falls in the past month (two with head strike, no consult in ER/workup following either incident). Reports having a brain MRI [facility] 04/22/24 due to concern for memory impairment/ worsening dementia. Per pulmonary notes, it appears pt is recommended to use supplemental 02 2L but presents to the office without use of any oxygen on but does report CPAP at night/oxygen use at night. Limited report of use supplemental 02 during the day. Pt/pt reports was going to be scheduled for 6MWT but has not yet had this screening completed by pulmonary office. Pt was seen most recently by [facility] pulmonary office on 04/20/24. Pt is followed by [facility] (awaiting new consult with [facility] cardiology), [facility] pulmonology, PCP Rosangela Luna PA-C of [facility] who established new level care in November of 2023. History of previously going to the ER at [facility] a few days ago but left due to wait times. Pt reports patient has been c/o dizziness, unsteadiness for the past month with history of two falls with head strike on thinners with cardiac history of Afib, COPD, third fall reported last night around 11pm with reports of back pain and feeling lightheaded (this fall was unwitnessed). Denies LOC or head strike last night. At time of PT consult, pt BP was 152/68mmhG, sitting 02 room air varied from 93-100 Sp02 room air. Therapist assessed BP at second time 164/86 mmHg taken manually from L UE. Pt phoned EMS for ambulation transport to hospital due to trauma/ fall history/current status and lack of workup. Upon arrival of EMS/[place] [facility], pt admits to chest pain stating, Yea I thought I was having a hard attack last night, now its just sore. Pt admits/ verbalizes anxiety. Upon arrival of EMS, pt had EKG placed with (+) PVCs' on screen, elevated BP 170/104 mmHg once EMS was taking him out of the facility. Pt was taken to [facility] for ER workup/evaluation via ambulance. Pt's PCP Rosangela Luna in office this date, notified of incident and she came in PT gym to communicate with patient regarding recommendation for ambulance transport alongside therapist. Pt and pt's agreeable and taken via ambulance. Pt was alert, oriented, had good color, (-) diaphoretic, and was communicating with with staff/ the whole time during this interaction. He was very CHINIK and requires repeated communication. admits to patient being confused and not acting himself. Pt was transported out of facility via [place] [facility] services from ([place] [facility] at approx 9:40 am). EMS was provided with facesheet demographic info, medication list and most recent office noted with PMH included from 04/20/24 note from pulmonary office. Frequency and Duration: The patient will be seen Short Term Goals: NO further PT is warranted at this time until further medical workup clearance can be obtained Clinical Laboratory Aide Goals: NO further PT is warranted at this time until further medical workup clearance can be obtained Treatment Plan: Modalities to reduce pain, spasms and effusion. Manual therapy to restore motion and function. Therapeutic exercise to improve strength and flexibility. Neuromuscular re-education for posture and balance. Therapeutic activities to return to functional activities of daily living. Electronically signed by: Kiarra Hernandez, PT, DPT Please sign and return to therapist. Thank you for your referral.
== END 2024-06-15 09:55 | disposition home or self-care (01) ==
LOC: HO.PTWFD 08:43
PROVIDERS: PCP Internal Medicine; Visit Provider Otolaryngology
DX: H81.4 Vertigo of central origin (principal)
CPT/HCPCS: 97163

== ENCOUNTER 2024-05-13 10:16 | Outpatient (AMB) | payer MEDICARE, OTHER, SELFPAY ==
--- NOTE | 2024-05-13 10:18 | A.OFFPC_ITS ---
Vital Signs 05/13/24 10:22 05/13/24 10:27 05/13/24 10:57 05/13/24 10:58 Height 5 ft 10 in Weight 181 lb 2 oz BMI 26.0 BP 180/82 H 149/102 H 172/64 H 150/60 H Blood Pressure Location Rt brachial Lt brachial Rt brachial Rt brachial Position Sitting Sitting Respiration 13 Pulse 75 Pulse Source Pulse Oximeter Temp 95.9 F L Temp Source Temporal Artery Scan Pulse Oximetry (%) 98 Oxygen Delivery Method Room Air Intake Visit Reasons: [place] discharge from er Intake Note: ER discharge follow up [employer] Required: No Allergies No Known Allergies Allergy (Verified 05/13/24 10:18) Tobacco use date assessed: 11/24/23 Dental Screening Dental Screen Date: 11/24/23 HPI HPI Comments History of Present Illness Details This is an 78-year-old male with an extensive past medical history significant for CKD stage 3, agent orange exposure, glaucoma, COPD with chronic respiratory failure requiring supplemental oxygen, depression with anxiety, hyperlipidemia, TIA, memory loss, paroxysmal atrial fibrillation, obstructive sleep apnea and periodic limb movement presenting for ER follow up. The patient is accompanied by his , Rosie Oliva. [facility] Patient was sent to the emergency department by ambulance when he came to this office for PT 05/06/2024. The concerns at that time were dizziness, multiple falls and pain in his back and chest as well as increased confusion over an uncertain period of time but at least for a few weeks. He also did not have his oxygen with him that day, and with movements his oxygen was going under 90% in the office. EKG was interpreted as sinus rhythm with occasional PVCs, 80 beats per minute, bifascicular block and no acute STEMI. He had a CT of the head and neck without contrast which demonstrated moderate prominence of the ventricles and sulci consistent with volume loss, atherosclerotic changes, moderate low-density white matter changes, no fractures or suspicious bony lesions, multilevel degenerative changes in the cervical spine. Patient had CT of chest, thoracic, lumbar spine, abdomen and pelvis. Findings included coronary artery calcifications, aortic calcifications but no aneurysm, multiple subcentimeter circumscribed low-density lesions in the liver likely representing cysts, bladder wall thickening and mild prostatomegaly and an acute nondisplaced fracture of the right posterior 12th rib and chronic appearing nondisplaced fractures of the right lateral 9th rib. Urine was negative for infection. Labs demonstrated no specific abnormalities that would cause symptoms. Patient was also seen at the hospital on 04/22/2024. 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 There was also nonspecific changes in the white matter that likely reflected small-vessel disease. They report worsening memory for an indefinite period of time. It has at least been declining since they were in [place] because he had a neuropsych evaluation there. Blood pressure on his right arm today is 172/64, and left arm is 150/60. He has a pillbox, but he has been administering his own medications, and his has noticed some medications are not being taken. He says that he has only been taking 1/2 a metoprolol every day instead of half a tablet twice a day. The timing of his medications varies. Continues to endorse lightheadedness when he stands. He is not drinking a lot of fluids throughout the day. Denies spinning sensation, nausea, vomiting. Denies chest pain or shortness of breath. Patient is on his supplemental oxygen today via nasal cannula. Denies falls since last ED visit. Cardiovascular-diagnosed in 2017 with paroxysmal atrial fibrillation. He had 2 ablations. The 2nd was successful. He does not have a Cardiology at the [facility] because there is no cardiology provider there. He was referred to [facility] when I saw him for an initial visit. The appointment is not for a few months. Denies palpitations or chest pain. He had a TIA in ?2017. He is on atorvastatin, Pradaxa, diltiazem, Zetia, furosemide (as needed for edema), metoprolol. Depression with anxiety-followed by Dr. Peñaloza. Tremor-taking primidone. Patient is up-to-date with eye exams. He sees audiology for hearing loss. COPD/AMY- Established with [facility] [place]. On 2 L via nasal cannula but is somewhat non adherent. On CPAP at night. ROS: Constitutional: No unexplained weight loss, fever, chills or night sweats. Denies increased fatigue. Respiratory: No increased shortness of breath or worsening cough Cardiovascular: No chest pain, chest pressure or chest discomfort. No palpitations . Gastrointestinal: No anorexia, nausea, vomiting or diarrhea. No abdominal pain or blood in stool. Neurologic: No seizures, tremor, numbness, headache. See HPI Hematologic/Lymphatics: No bleeding or swollen glands Musculoskeletal: Pain due to rib fracture, taking Tylenol for this Psychiatric: No SI/HI. Physical exam: Constitutional: Alert, in no distress. Head: Normocephalic. Ears: External canals clear. TMs normal. Eyes: Pupils are equal, round and reactive to light. Extraocular muscles intact. Neck: Supple, Full range of motion. No lymphadenopathy. Respiratory: Clear to auscultation. Cardiovascular: S1 S2 regular. No murmurs. Neurologic: Speech is clear, but he does not answer questions correctly and seems forgetful during the visit. No facial droop. Moves extremities spontaneously. Extremities: Warm and well perfused. 1+ bilateral lower extremity edema. Psychiatric: Normal mood and affect [facility] Medical History (Updated 05/14/24 @ 16:55 by BETINA Salvador) Hypertension Falls frequently Closed rib fracture Cognitive decline CKD stage 3a, GFR 45-59 ml/min Glaucoma GERD (gastroesophageal reflux disease) Agent orange exposure Bilateral hearing loss COPD (chronic obstructive pulmonary disease) Periodic limb movement Nocturnal hypoxemia Depression with anxiety TIA (transient ischemic attack) Neoplasm of skin Skin rash Memory loss Imbalance A-fib Hypercholesteremia Family History (Updated 11/24/23 @ 11:56 by Alannah Fernandez CMA) Mother Breast cancer Cardiovascular disease Social History Housing: House Patient Tobacco Use Status: Former Tobacco user Cigarette Packs Per Day: 1 Years Smoked: 40 service: Yes Current occupational status: retired Cognitive needs: No Hearing needs: Yes (Hearing loss) Vision needs: No Questionnaire PHQ-9 Over the last 2 weeks, how often have you been bothered by any of the following problems? 1. Little interest or pleasure in doing things: several days 2. Feeling down, depressed, or hopeless: not at all 3. Trouble falling or staying asleep, or sleeping too much: not at all 4. Feeling tired or having little energy: several days 5. Poor appetite or overeating: not at all 6. Feeling bad about yourself - or that you are a failure or have let yourself or your family down: not at all 7. Trouble concentrating on things, such as reading the newspaper or watching television: not at all 8. Moving or speaking so slowly that other people could have noticed. Or the opposite - being so fidgety or restless that you have been moving around a lot more than usual: not at all 9. Thoughts that you would be better off or of hurting yourself in some way: not at all Total score: 2 36115 - PHQ-9 Billing: Yes Source: Developed by Drs. Sherif Thomson, Tomasa Baker, Ishmael Alas and colleagues, with an educational aftab from [employer]. Thrive Questionnaire Date Thrive assessed: 05/13/24 I am a: Patient What is your living situation today?: I have a steady place to live Within the past 12 months, did the food you bought not last and you didn't have the money to get more?: Never true Within the past 12 months, did you worry whether your food would run out before you got money to buy more?: Never true Do you have trouble paying for medicines?: No Do you have trouble getting transportation to medical appointments?: No Do you have trouble paying your heating and electricity bill?: No Do you have trouble taking care of your child, family member or friend?: No Do you have trouble with day-to-day activities such as bathing, preparing meals, shopping, managing finances, etc.?: No Are you currently unemployed and looking for a job?: No Are you interested in more education?: No Please select the resources that you would like help with: None Currently or been in a relationship where the following occur: No concerns reported THRIVE Score: 0 AUDIT C Alcohol Use Questionnaire (AUDIT-C) 1. How often do you have a drink containing alcohol?: 2-3 times a week 2. How many drinks containing alcohol do you have on a typical day when you are drinking?: 1 or 2 3. How often do you have six or more drinks on one occasion?: Never Total Score: 3 FAYE-7 AMB Questionnaire FAYE-7 Date FAYE - 7 assessed: 05/13/24 Feeling nervous, anxious, or on edge: 0 = Not at all Not being able to stop or control worryin = Not at all Worrying too much about different things: 0 = Not at all Trouble relaxin = Not at all Being so restless that it is hard to sit still: 0 = Not at all Becoming easily annoyed or irritable: 0 = Not at all Feeling afraid as if something awful might happen: 0 = Not at all Total FAYE-7 score (0-4 normal; 5-9 mild; 10-14 moderate; 15-21 severe): 0 Source: Developed by Drs. Sherif Thomson, Tomasa Baker, Ishmael Alas and colleagues, with an educational aftab from [employer]. FAYE-7 Assessment Billing FAYE-7 Assessment Tool: FAYE-7 Assessment 89168 Physical exam (Primary Care) Vital Signs: Last Vital Signs Temp 95.9 F L 05/13/24 10:22 Pulse 75 05/13/24 10:22 Resp 13 05/13/24 10:22 BP 150/60 H 05/13/24 10:58 Pulse Ox 98 05/13/24 10:22 Oxygen Delivery Method Room Air 05/13/24 10:22 BMI result Body Mass Index 26.0 Tobacco/Smoking Status: Tobacco use Status Tobacco use date assessed 11/24/23 05/13/24 10:20 Patient Tobacco Use Status Former Tobacco user 05/13/24 10:20 PHQ-9: PHQ-9 Score PHQ-9: Total score 2 05/13/24 10:46 Thrive Assessment: Date of Thrive Assessment Date Thrive assessed 05/13/24 05/13/24 10:20 Currently or been in a relationship where the following occur: No concerns reported Coding Level of Care Code Est Pt Level 5 (28841) Complex EM visit Add On G2211 Diagnoses Cognitive decline R41.89 Depression with anxiety F41.8 Paroxysmal atrial fibrillation I48.0 Atrial fibrillation type: paroxysmal Simple chronic bronchitis J41.0 COPD type: chronic bronchitis Chronic bronchitis type: simple Obstructive sleep apnea G47.33 Closed rib fracture S22.39XA Falls frequently R29.6 Hypertension I10 Additional Codes FAYE-7 Assessment Billing - FAYE-7 Assessment Tool: FAYE-7 Assessment 85329 ([id number]) PHQ-9 - 63759 - PHQ-9 Billing: Yes ([id number]) Time Spent (min) 50 Comment Chart review, direct patient care, completing documentation Assessment & Plan Assessment & Plan (1) Cognitive decline: Code(s): R41.89 - Other symptoms and signs involving cognitive functions and awareness Category: Medical (2) Depression with anxiety: Code(s): F41.8 - Other specified anxiety disorders Category: Medical (3) A-fib: Code(s): I48.91 - Unspecified atrial fibrillation Category: Medical Qualifiers: Atrial fibrillation type: paroxysmal Qualified Code(s): I48.0 - Paroxysmal atrial fibrillation (4) COPD (chronic obstructive pulmonary disease): Code(s): J44.9 - Chronic obstructive pulmonary disease, unspecified Category: Medical Qualifiers: COPD type: chronic bronchitis Chronic bronchitis type: simple Qualified Code(s): J41.0 - Simple chronic bronchitis (5) Obstructive sleep apnea: Code(s): G47.33 - Obstructive sleep apnea (adult) (pediatric) Category: Medical (6) Closed rib fracture: Code(s): S22.39XA - Fracture of one rib, unspecified side, initial encounter for closed fracture Category: Medical (7) Falls frequently: Code(s): R29.6 - Repeated falls Category: Medical (8) Hypertension: Code(s): I10 - Essential (primary) hypertension Category: Medical Plan In summary this is an 78-year-old male presenting for ER follow up after recent visits for falls in the setting of cognitive decline. I stressed the importance of compliance with his supplemental oxygen. We discussed how not using this consistently can increase his risk of falls and impair mentation. Referred to neurology. I will also place a new referral to Cardiology to see if his appointment can be moved up given atrial fibrillation, chronic anticoagulation and recent falls. I suspect that medication noncompliance, dehydration and taking his medications on a varying schedule is also contributing to dizziness. I asked if they would like VNA services for [facility] and PT. They agreed. His will also prepare the pillbox and assist the patient with administration of medications. I will change metoprolol from half a tablet twice daily to 50 mg extended release once daily since he is only taking this once a day anyways. His blood pressure is elevated today. Continue Tylenol 500 to a 1000 mg 3 times daily as needed for pain related to rib fracture. I also prescribed topical lidocaine patches for this. I also expressed concern that he is not hydrating enough during the day. Recommended trying low sugar or 0 sugar Gatorade or Pedialyte for hydration. Follow up in 2 weeks for re-evaluation. Orders: Referrals Neurology Referral R41.89 - Other symptoms and signs involving cognitive functions and awareness Medications: New metoprolol succinate ER 50 mg PO DAILY 90 tabs 1RF lidocaine 5% (DermacinRx Lidocan) leave on most painful area for up to 12 hrs 1 patch topical DAILY PRN 30 ea 0RF pain
[2024-05-13 10:22] VITALS: BP 180/82; PULSE 75; RESP 13; TEMP 35.5; O2SAT 98; BMI 26.0
[2024-05-13 10:27] VITALS: BP 149/102
[2024-05-13 10:57] VITALS: BP 172/64
[2024-05-13 10:58] VITALS: BP 150/60
--- OUTSIDE RECORDS SUMMARY | 2024-05-13 13:33 | XMS_ITS | Encounter Summary ---
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 This section includes the names of all active insurance providers for the patient. Insurance Provider Type of Coverage Plan Name Start of Policy Coverage End of Policy Coverage Group Number Member ID Insurance Provider's Telephone Number Policy Burkett's Name Patient's Relationship to Policy Burkett MEDICARE (WNR) MEDICARE (M) PART A August 12, 2008 PART A [id number] Dawson YOUNGER PATIENT MEDICARE (WNR) MEDICARE (M) PART B August 12, 2008 PART B [id number] Dawson YOUNGER PATIENT MEDICARE (WNR) MEDICARE (M) PART A August 12, 2008 PART A [id number] Dawson YOUNGER PATIENT MEDICARE (WNR) MEDICARE (M) PART A August 12, 2008 PART A [id number] Dawson YOUNGER PATIENT MEDICARE (WNR) MEDICARE (M) PART B August 12, 2008 PART B [id number] Dawson YOUNGER PATIENT MEDICARE (WNR) MEDICARE (M) PART B August 12, 2008 PART B [id number] Dawson YOUNGER PATIENT MEDICARE (WNR) MEDICARE (M) PART B August 12, 2008 PART B [id number] Dawson YOUNGER PATIENT MEDICARE (WNR) MEDICARE (M) PART A August 12, 2008 PART A [id number] Dawson YOUNGER PATIENT MEDICARE (WNR) MEDICARE (M) PART A August 12, 2008 PART A [id number] Dawson YOUNGER PATIENT MEDICARE (WNR) MEDICARE (M) PART B August 12, 2008 PART B [id number] Dawson YOUNGER PATIENT MEDICARE PART D (WNR) PRESCRIPT ION PART D Apr 14, 2015 PART D [id number] [phone] Dawson YOUNGER PATIENT UNICARE PREFERRED PROVIDER ORGANIZAT ION (PPO) [facility] August 12, 2008 [id number] Dawson YOUNGER PATIENT UNICARE MEDICARE SUPPLEMEN [facility] August 12, 2008 [id number] Dawson YOUNGER PATIENT UNICARE-G. I.C. MEDICAL EXPENSE (OPT/PROF ) [facility] August 12, 2008 [id number] Dawson YOUNGER PATIENT Selected Encounter This section includes the information on record at NH for the Encounter. Date/Time Encounter Type Encounter Description Reason Pro vider Source Apr 26, 2024 04:23 PM Outpatient Encounter PRIMARY CARE/MEDICINE IHE Encounter Template Text not used by NH Plan of Treatment: Future Appointments (+ 6 months) and Future Tests (+/- 45 days) The Plan of Treatment section includes future care activities for the patient from all [facility] This section includes future appointments and future orders which are active, pending or scheduled. Future Appointments This section includes appointments that were scheduled to occur 6 months from the date of the Encounter, up to a maximum of 20 appointments. The data comes from all [place] treatment facilities. Appointment Date/Time Appointment Type Appointme nt Facility Name Apr 28, 2024 01:00 PM AMBULATORY - PSYCHIATRY [place] [facility] [place] [facility] Apr 28, 2024 01:01 PM AMBULATORY - PSYCHIATRY [place] [facility] [place] [facility] May 11, 2024 01:30 PM AMBULATORY - REHAB MEDICIN E [place] [facility] [place] [facility] May 26, 2024 01:30 PM AMBULATORY - MEDICINE [facility] May 26, 2024 03:00 PM AMBULATORY - PSYCHIATRY [place] [facility] [place] [facility] May 26, 2024 03:01 PM AMBULATORY - PSYCHIATRY [place] [facility] [place] [facility] Jun 22, 2024 01:00 PM [facility] Jun 22, 2024 03:00 PM AMBULATORY - NONE [place] [facility] [place] [facility] Sep 14, 2024 02:30 PM [facility]BULAT[facility] Social History: Smoking Status (Most current) and Tobacco Use (All prior to encounter date) This section includes the most current, and the historical, smoking and tobacco- related health factors from the [facility] facility where the Encounter took place. Current Smoking Status This section includes the most current smoking, or tobacco-related health factor, from the VA facility where the Encounter took place. Date/Time Current Smoking Status Comment Noemy gonzalezy Aug 06, 2023 01:17 PM VA-TOBACCO NEVER USED [facility] Advance Directives: All historical and current Section Date Range: From patient's date of to the date document was created. This section includes ALL of a patient's completed or amended VA Advance and Rescinded Directives. The entries below indicate that a directive exists for the patient, but an actual copy is not included with this document. The data comes from all [place] facilities. Date Advance Directives Provider Source August 25, 2023 ADVANCE DIRECTIVE MICHELLE LEVINE [facility] Encounter Notes: All associated encounter notes This section contains the clinical notes associated to the Encounter. Date/Time Encounter Note(s) Provider Source Apr 26, 2024 04:27 PM ADMINISTRATIVE NOT E: LOCAL TITLE: ADMINISTRATIVE NOTE STANDARD TITLE: ADMINISTRATIVE NOTE DATE OF NOTE: APR 26, 2024@16:27 ENTRY DATE: APR 26, 2024@16:27:41 AUTHOR: QUANG STAHL EXP COSIGNER: URGENCY: STATUS: COMPLETED Consult request received for continuation of care for Pulmonary via right fax folder. Consult placed, held for review by provider and sign if appropriate. Pulmonology Services [address] [place] [address] Dr Singh, [place] [phone] /gurwinder/ QUNAG STAHL REGISTERED NURSE Signed: 04/26/2024 16:29 QUANG STAHL [place]
--- OUTSIDE RECORDS SUMMARY | 2024-05-13 13:34 | XMS_ITS | Encounter Summary ---
Author Name [facility] [place] Organization [facility] [place] [facility] [place] Address [address] [place] [address] Care Team Providers Care Merchandise Collector Name Role Phone ERNESTO ARBOLEDA Primary Care Provider UnavailTOYIN Escobar Primary Care Provider Unavail le Insurance Providers: All historical and current [...] PART A August 12, 2008 PART A [id number] Dawson YOUNGER PATIENT MEDICARE (WNR) MEDICARE (M) PART B August 12, 2008 PART B [id number] [phone] Dawson YOUNGER PATIENT MEDICARE (WNR) MEDICARE (M) PART A August 12, 2008 PART A [id number] [phone] Dawson YOUNGER PATIENT MEDICARE (WNR) MEDICARE (M) PART A August 12, 2008 PART A [id number] Dawson YOUNGER PATIENT MEDICARE (WNR) MEDICARE (M) PART B August 12, 2008 PART B [id number] [phone] Dawson YOUNGER PATIENT MEDICARE (WNR) MEDICARE (M) PART B August 12, 2008 PART B [id number] [phone] Dawson YOUNGER PATIENT MEDICARE (WNR) MEDICARE (M) PART B August 12, 2008 PART B [id number] [phone] Dawson YOUNGER PATIENT MEDICARE (WNR) MEDICARE (M) PART A August 12, 2008 PART A [id number] Dawson YOUNGER PATIENT MEDICARE (WNR) MEDICARE (M) PART A August 12, 2008 PART A [id number] Dawson YOUNGER PATIENT MEDICARE (WNR) MEDICARE (M) PART B August 12, 2008 PART B [id number] [phone] Dawson YOUNGER PATIENT MEDICARE PART D (WNR) PRESCRIPT ION PART D Apr 14, 2015 PART D [id number] [phone] Dawson YOUNGER PATIENT UNICARE PREFERRED PROVIDER ORGANIZAT ION (PPO) [facility] IN[facility] N August 12, 2008 [id number] Dawson YOUNGER PATIENT UNICARE MEDICARE SUPPLEMEN FARHAD [facility] August 12, 2008 [id number] Dawson YOUNGER PATIENT UNICARE-G. I.C. MEDICAL EXPENSE (OPT/PROF ) [facility] August 12, 2008 [id number] [id number] Dawson YOUNGER PATIENT Selected Encounter This section includes the information on record at MD for the Encounter. Date/Time Encounter Type Encounter Description Reason Provider Source Apr 23, 2024 08:41 AM NQHP OL DIG ASSMT&MGMT 5-10 CLINICAL PHARMACY ICD-10-CM Z79.01 roasterman (current) use of anticoagulants AIMEESTANISLAV MONTES E Encounter Template Text not used by MD Assessments - Encounter Diagnoses This section includes the primary and secondary diagnoses documented for the Encounter. Date/Time Primary/Secondary Diagnosis Diagnosis Name Provider Source Apr 23, 2024 04:38 PM PRIMARY intermediate (current) use of anticoagulants AIMEESTANISLAV [facility] Plan of Treatment: Future Appointments (+ 6 months) and Future Tests (+/- 45 days) The Plan of Treatment section includes future care activities for the patient from all [facility]. This section includes future appointments and future orders which are active, pending or scheduled. Future Appointments This section includes appointments that were scheduled to occur 6 months from the date of the Encounter, up to a maximum of 20 appointments. The data comes from all MD treatment facilities. Appointment Date/Time Appointment Type Appointme nt Facility Name Apr 28, 2024 01:00 PM AMBULATORY - PSYCHIATRY [place] [facility] [place] [facility] Apr 28, 2024 01:01 PM AMBULATORY - PSYCHIATRY MD [facility] [place] [facility] May 11, 2024 01:30 PM AMBULATORY - REHAB MEDICIN E MD [facility] [place] [facility] May 26, 2024 01:30 PM AMBULATORY - MEDICINE [facility] May 26, 2024 03:00 PM AMBULATORY - PSYCHIATRY MD [facility] [place] [facility] May 26, 2024 03:01 PM AMBULATORY - PSYCHIATRY MD [facility] [place] [facility] Jun 22, 2024 01:00 PM [facility] [place] [facility] Jun 22, 2024 03:00 PM AMBULATORY - NONE MD [facility] [place] [facility] Sep 14, 2024 02:30 PM AMBULATORY - MEDICINE [facility] [place] [facility] Social History: Smoking Status (Most current) and Tobacco Use (All prior to encounter date) This section includes the most current, and the historical, smoking and tobacco- related health factors from the MD facility where the Encounter took place. Current Smoking Status This section includes the most current smoking, or tobacco-related health factor, from the MD facility where the Encounter took place. Date/Time Current Smoking Status Comment Noemy esquivel Aug 06, 2023 01:17 PM VA-TOBACCO NEVER USED MD [facility] [place] [facility] Advance Directives: All historical and current Section Date Range: From patient's date of to the date document was created. This section includes ALL of a patient's completed or amended MD Advance and Rescinded Directives. The entries below indicate that a directive exists for the patient, but an actual copy is not included with this document. The data comes from all MD facilities. Date Advance Directives Provider Source August 25, 2023 AD[facility] Encounter Notes: All associated encounter notes This section contains the clinical notes associated to the Encounter. Date/Time Encounter Note(s) Provider Source Apr 23, 2024 08:41 AM PHARMACY MEDICATION MGT NOTE: LOCAL TITLE: PHARMACY ANTICOAGULATION NOTE STANDARD TITLE: PHARMACY MEDICATION MGT NOTE DATE OF NOTE: APR 23, 2024@08:41 ENTRY DATE: APR 23, 2024@08:42 AUTHOR: LILIAM TRUJILLO COSIGNER: URGENCY: STATUS: COMPLETED PHARMACY ANTICOAGULATION NOTE Has ADDENDA ANTICOAGULATION DOAC MONITORING NOTE SUBJECTIVE: Patient identified through the DOAC population Management Tool based on the following criteria: [ ] Dosing Issue [ ] Critical Drug Interaction [ ] Cancer Treatment [ ] Active NSAID [ ] Labs Overdue [ ] Prosthetic Valve Replacement [ ] Notable Lab Value [ X ] Overdue for Refill [ ] Other: Comments: Pt flagged for being overdue for refill. Rx last filled dabigatran x90 days 11/12/23 OBJECTIVE: Indication for anticoagulation: [ X ] Atrial fibrilation [ ] Atrial flutter [ ] VTE (DVT or PE) [ ] Post-op DVT prophylaxis [ ] Other: Most recent lab values include the following: HGB: HGB Collection DT Specimen Test Name Result Units Ref Range 11/07/2023 13:19 BLOOD HGB 13.7 g/dL 12.8 - 17 PLT: WBC Collection DT Specimen Test Name Result Units Ref Range 11/07/2023 13:19 BLOOD WBC 6.90 K/cmm 4.50 - 11.00 Liver Function Tests Collection DT Spec AST ALT ALK NIURKA ALBUMIN T BILI T. PROT 11/07/2023 13:19 SERUM 16 24 88 3.3 L 0.4 6.4 HEIGHT: 70 in [177.8 cm] (08/07/2023 15:14) WEIGHT: 183.2 lb [83.10 kg] (02/26/2024 13:11) BMI: BMI: 26.3 CREATININE-EGFR 11/07/23 13:19 1.05 CRCL IBW: CrCl(est): 57.9 mL/min (Creat:1.05 11/07/23) CRCL ACT: No Creat CRCL ADJ: 57.9 mL/min (11/07/23) ASSESSMENT: refill overdue Action required? [ X ] Yes [ ] No Comments: Will mail refill reminder letter and dismiss flag. PLAN: [ ] No action required, dismiss flag [ X ] Will intervene: [ X ] Patient education via phone/letter [ ] Schedule phone/[id number] follow up [ ] Lab ordered [ ] Discontinue interacting medication [ ] Discontinue DOAC [ ] Change to alternative DOAC [ ] Change DOAC dose [ ] Notify PCP [ ] Consult cardiology/hematology [ ] Other: Time spent: 5 min /gurwinder/ LILIAM TRUJILLO CPHT Clinical Behavioral Health Associate Signed: 04/23/2024 08:42 Receipt Acknowledged By: 04/23/2024 16:38 /gurwinder/ Stanislav Diaz PharmD Clinical Financial Business Analyst 04/23/2024 ADDENDUM STATUS: COMPLETED Above case reviewed as entered by [facility] Timber Girdler. Agree with current assessment and plan of care for this patient's anticoagulation management as noted. /gurwinder/ Nesha AllisonD Clinical Financial Business Analyst Signed: 04/23/2024 16:38 [facility]IT[facility] GARCIA MD [facility]
--- OUTSIDE RECORDS SUMMARY | 2024-05-13 13:34 | XMS_ITS ---
Care Plan - [facility] [place] Created on: May 13, 2024 Nick Oliva : 1945 Sex: Male Author Organization [facility] Address [address] [place] [address] Phone Care Team Providers Care Senior Grants Officer Name Role Phone & Sports Medicine, [facility] Unavailable [phone] Kenney PARK MD, Christ Hernandez Unavailable [phone] Leti CUELLO, Maryan Rose Unavailable [phone] Junaid CUELLO, Bora Unavailable [phone] Andres CUELLO, Narendra Primary Care Provider [phone] Florecita CUELLO, Deni Unavailable [phone] Arturo TALBOT, Gloria Camargo Unavailable [phone] Edita CUELLO, Martinez Unavailable [phone] Cathy CUELLO, Sylvester Penaloza Unavailable + [phone] Smiley Calderon Unavailable [phone] Valery CUELLO, Dane Unavailable [phone] Colton Guardado MD Unavailable [phone] Mt Mistry DO Unavailable [phone] Kay CUELLO, Merle Unavailable [phone]
--- OUTSIDE RECORDS SUMMARY | 2024-05-13 13:34 | XMS_ITS | Encounter Summary ---
Author Name [facility] [place] Organization [facility] [place] Address [address] [place] [address] Care Team Providers Care Camera Mechanic Name Role Phone ERNESTO ARBOLEDA Primary Care Provider UnavailTOYIN Escobar Primary Care Provider Unavailab le Insurance Providers: [...] PART A August 12, 2008 PART A [id number] Dawson YOUNGER PATIENT MEDICARE (WNR) MEDICARE (M) PART B August 12, 2008 PART B [id number] Dawson YOUNGER PATIENT MEDICARE (WNR) MEDICARE (M) PART A August 12, 2008 PART A [id number] Dawson YOUNGER PATIENT MEDICARE (WNR) MEDICARE (M) PART B August 12, 2008 PART B [id number] [phone] [id number] Dawson YOUNGER PATIENT MEDICARE (WNR) MEDICARE (M) PART A August 12, 2008 PART A [id number] Dawson YOUNGER PATIENT MEDICARE (WNR) MEDICARE (M) PART B August 12, 2008 PART B [id number] Dawson YOUNGER PATIENT MEDICARE (WNR) MEDICARE (M) PART B August 12, 2008 PART B [id number] Dawson YOUNGER PATIENT MEDICARE (WNR) MEDICARE (M) PART A August 12, 2008 PART A [id number] Dawson YOUNGER PATIENT MEDICARE (WNR) MEDICARE (M) PART A August 12, 2008 PART A [id number] [phone] Dawson YOUNGER PATIENT MEDICARE (WNR) MEDICARE (M) PART B August 12, 2008 PART B [id number] Dawson YOUNGER PATIENT MEDICARE PART D (WNR) PRESCRIPT ION PART D Apr 14, 2015 PART D [id number] Dawson YOUNGER PATIENT UNICARE PREFERRED PROVIDER ORGANIZAT ION (PPO) [facility] IN[facility]M N August 12, 2008 [id number] [phone] Dawson YOUNGER PATIENT UNICARE MEDICARE SUPPLEMEN FAR[facility]AD [facility] N August 12, 2008 [id number] [id number] [phone] Dawson YOUNGER PATIENT UNICARE-G. I.C. MEDICAL EXPENSE (OPT/PROF ) [facility] August 12, 2008 [id number] [phone] Dawson YOUNGER PATIENT Selected Encounter This section includes the information on record at OR for the Encounter. Date/Time Encounter Type Encounter Description Reason Provider Source August 25, 2023 01:00 PM UNLISTED SPEC DERM SVC/PX DERMATOLOGY ICD-10-CM Z13.89 Encounter for screening for other disorder SIRIA IYER Javad Encounter Template Text not used by OR Assessments - Encounter Diagnoses This section includes the primary and secondary diagnoses documented for the Encounter. Date/Time Primary/Secondary Diagnosis Diagnosis Name Provider Source August 25, 2023 02:30 PM PRIMARY Encounter for screening for other disorder JOSE F IYER [facility] Plan of Treatment: Future Appointments (+ 6 months) and Future Tests (+/- 45 days) The Plan of Treatment section includes future care activities for the patient from all [place] [facility]fac[facility]. This section includes future appointments and future orders which are active, pending or scheduled. Future Appointments This section includes appointments that were scheduled to occur 6 months from the date of the Encounter, up to a maximum of 20 appointments. The data comes from all [place] treatment facilities. Appointment Date/Time Appointment Type Appointme nt Facility Name August 26, 2023 01:45 PM AMBULATORY - MEDICINE [facility] [place] [place] [facility] September 10, 2023 11:00 AM AMBULATORY - NONE [facility] [place] [facility] Sep 23, 2023 09:00 AM AMBULATORY - PSYCHIATRY [facility] [place] [facility] Oct 02, 2023 11:00 AM AMBULATORY - NONE [facility] [place] [facility] Oct 30, 2023 02:30 PM AMBULATORY - MEDICINE [facility] Nov 07, 2023 01:00 PM AMBULATORY - REHAB [facility] Nov 13, 2023 10:00 AM AMBULATORY - PSYCHIATRY [facility] [place] [facility] Nov 13, 2023 02:00 PM AMBULATORY - MEDICINE [facility] [place] [facility] Nov 14, 2023 01:00 PM AMBULATORY - MEDICINE [facility] [place] [facility] Nov 14, 2023 02:00 PM AMBULATORY - MEDICINE [facility] [place] [facility] Dec 01, 2023 08:30 AM AMBULATORY - PSYCHIATRY [facility] [place] [facility] Dec 09, 2023 03:00 PM AMBULATORY - PSYCHIATRY [facility] [place] [facility] Dec 25, 2023 11:00 AM AMBULATORY - PSYCHIATRY [facility] [place] [facility] Jan 01, 2024 01:30 PM AMBULATORY - MEDICINE [facility] [place] [facility] Jan 01, 2024 02:00 PM AMBULATORY - MEDICINE [place] [facility] Jan 02, 2024 02:00 PM AMBULATORY - REHAB MEDICIN E [place] [place] [facility] Jan 21, 2024 02:30 PM AMBULATORY - PSYCHIATRY [place] [place] [facility] Jan 21, 2024 02:31 PM AMBULATORY - PSYCHIATRY [place] [facility] [place] [facility] Feb 05, 2024 11:00 AM AMBULATORY - REHAB MEDICIN E [place] [place] [facility] Feb 05, 2024 01:30 PM AMBULATORY - [facility] Active, Pending, and Scheduled Orders This section includes a listing of several types of active, pending, and scheduled orders, including clinic medications orders, diagnostic test orders, procedure orders and consult orders; where the start date of the order is 45 days before the date of the Encounter or 45 days after the date of theEncounter. The data comes from all [place] treatment facilities. Test Date/Time Test Type Test Details Facility Name Oct 02, 2023 11:26 AM Consult Order [facility] Cons Countersinker Balance Screw Hole's Choice [facility] Advance Directives: All historical and current Section Date Range: From patient's date of to the date document was created. This section includes ALL of a patient's completed or amended [place] Advance and Rescinded Directives. The entries below indicate that a directive exists for the patient, but an actual copy is not included with this document. The data comes from all [place] facilities. Date Advance Directives Provider Source August 25, 2023 ADVANCE DIRECTIVE MICHELLE LEVINE [facility] Encounter Notes: All associated encounter notes This section contains the clinical notes associated to the Encounter. Date/Time Encounter Note(s) Provider Source August 25, 2023 01:48 PM TELEHEALTH CONSULT : LOCAL TITLE: CONSULT REPORT/TELEDERMATOLOGY IMAGING REQUEST STANDARD TITLE: TELEHEALTH CONSULT DATE OF NOTE: AUGUST 25, 2023@13:48 ENTRY DATE: AUGUST 25, 2023@13:48:20 AUTHOR: MITCHEL IYER COSIGNER: URGENCY: STATUS: COMPLETED Teledermatology Consult Request The patient was educated regarding the Teledermatology process at this encounter. Comment: PATIENT EDUCATED ON TELEDERM PROCESS AND VERBALIZES UNDERSTANDING. Patient DOES consent to have images taken, viewed, and interpreted using the Teledermatology process. This consult addresses: A new condition Images were acquired: In clinic HISTORY: Prior skin history: Yes SEEN LAST YEAR TWICE BY OR THERAPEUTIC MASSAGE TECHNICIAN IN [place] AND ALSO SEEN BY A PRIVATE THERAPEUTIC MASSAGE TECHNICIAN Have you had a skin cancer before? None Reported Patient reports no family history of melanoma. Taking new med/supplements: None reported Immunosuppression history: None reported Other significant history: None reported Chief Complaint: Transfer from [facility]. 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 They have been monitoring this condition for 18 years. PROBLEM A LOCATION(S): Lower Extremity: RIGHT KNEE DURATION: NOT ACTUALLY SURE BUT ABOUT 10 YEARS OR MORE SYMPTOMS: No Symptoms CHANGES: Color, Shape, Size TREATMENT: No BIOPSY: Yes Details: PER VET. NOT SURE OF THE KNEE BIOPS WAS DONE ON LAST YEAR . PROBLEM B: LOCATION(S): Lower Extremity: LEFT KNEE DURATION: NOT ACTUALLY SURE BUT ABOUT 10 YEARS OR MORE SYMPTOMS: No Symptoms CHANGES: Color, Shape, Size TREATMENT: No BIOPSY: Yes Details: PER VET. NOT SURE OF THE KNEE BIOPS WAS DONE ON LAST YEAR PROBLEM C: LOCATION(S): Upper Extremity: RIGHT ELBOW DURATION: VET. NOT SURE BUT SAID ABOUT 10 YEARS AGO SYMPTOMS: No Symptoms CHANGES: Color, Shape TREATMENT: No BIOPSY: No Termite Treater's comments: IMAGED PER PROVIDER'S DIRECTION AND FACILITY PROTOCOL. /gurwinder/ MITCHEL IYER TELEHEALTH CLINICAL TECHNIAN (TCT) Signed: 08/25/2023 14:34 MITCHEL IYER ONSET
--- OUTSIDE RECORDS SUMMARY | 2024-05-13 13:34 | XMS_ITS ---
Author Name [facility] [place] [facility] [place] Address [address] [place] [address] Care Team Providers Care Erp Programmer Name Role Phone ERNESTO ARBOLEDA Primary Care [...] PART A August 12, 2008 PART A [id number] Dawson YOUNGER PATIENT MEDICARE (WNR) MEDICARE (M) PART B August 12, 2008 PART B [id number] Dawson YOUNGER PATIENT MEDICARE (WNR) MEDICARE (M) PART A August 12, 2008 PART A [id number] Dawson YOUNGER PATIENT MEDICARE (WNR) MEDICARE (M) PART B August 12, 2008 PART B [id number] Dawson YOUNGER PATIENT MEDICARE (WNR) MEDICARE (M) PART A August 12, 2008 PART A [id number] Dawson YOUNGER PATIENT MEDICARE (WNR) MEDICARE (M) PART B August 12, 2008 PART B [id number] Dawson YOUNGER PATIENT MEDICARE (WNR) MEDICARE (M) PART B August 12, 2008 PART B [id number] Dawson YOUNGER PATIENT MEDICARE (WNR) MEDICARE (M) PART A August 12, 2008 PART A [id number] Dawson YOUNGER PATIENT MEDICARE (WNR) MEDICARE (M) PART A August 12, 2008 PART A [id number] Dawson YOUNGER PATIENT MEDICARE (WNR) MEDICARE (M) PART B August 12, 2008 PART B [id number] Dawson YOUNGER PATIENT MEDICARE PART D (WNR) PRESCRIPT ION PART D Apr 14, 2015 PART D [id number] [phone] Dawson YOUNGER PATIENT UNICARE PREFERRED PROVIDER ORGANIZAT ION (PPO) [facility] August 12, 2008 [id number] [phone] Dawson YOUNGER PATIENT UNICARE MEDICARE SUPPLEMEN [facility] August 12, 2008 [id number] Dawson YOUNGER PATIENT UNICARE-G. I.C. MEDICAL EXPENSE (OPT/PROF ) HOANG [facility] IN[facility] N August 12, 2008 [id number] [phone] Dawson YOUNGER PATIENT Selected Encounter This section includes the information on record at [place] for the Encounter. Date/Time Encounter Type Encounter Description Reason Provider Source Oct 02, 2023 11:00 AM INTRAORAL FULL IMAGE SERIES DENTAL ICD-10-CM K03.6 Deposits [accretions] on teeth MARGI CARREON ENT IHE Encounter Template Text not used by [place] Assessments - Encounter Diagnoses This section includes the primary and secondary diagnoses documented for the Encounter. Date/Time Primary/Secondary Diagnosis Diagnosis Name Provider Source Oct 02, 2023 11:39 AM PRIMARY Deposits [accretions] on teeth HOHREITER,VINC ENT [place] [facility] [place] [facility] Plan of Treatment: Future Appointments (+ 6 months) and Future Tests (+/- 45 days) The Plan of Treatment section includes future care activities for the patient from all [place] treatmentfacilities. This section includes future appointments and future orders which are active, pending or scheduled. Future Appointments This section includes appointments that were scheduled to occur 6 months from the date of the Encounter, up to a maximum of 20 appointments. The data comes from all [place] treatment facilities. Appointment Date/Time Appointment Type Appointme nt Facility Name Oct 30, 2023 02:30 PM AMBULATORY - MEDICINE [facility] Nov 07, 2023 01:00 PM AMBULATORY - REHAB [facility]ICIN [facility] Nov 13, 2023 10:00 AM AMBULATORY [facility]IATRY [facility] [place] [facility] Nov 13, 2023 02:00 PM AMBULATORY - MEDICINE [facility] [place] [facility] Nov 14, 2023 01:00 PM AMBULATORY - MEDICINE [facility] [place] [facility] Nov 14, 2023 02:00 PM AMBULATORY [facility] MEDICINE [facility] [place] [facility] Dec 01, 2023 08:30 AM AMBULATORY - PS[facility]CHIATRY [facility] [place] [facility] Dec 09, 2023 03:00 PM AMBULATORY - PSYCHIATRY [facility] [place] [facility] Dec 25, 2023 11:00 AM AMBULATORY - PSYCHIATRY [facility] [place] [facility] Jan 01, 2024 01:30 PM AMBULATORY - MEDICINE [facility] [place] [facility] Jan 01, 2024 02:00 PM AMBULATORY - MEDICINE [facility] [place] [facility] Jan 02, 2024 02:00 PM AMBULATORY - REHAB MEDICIN E [facility] [place] [facility] Jan 21, 2024 02:30 PM AMBULATORY - PSYCHIATRY [facility] [place] [facility] Jan 21, 2024 02:31 PM [facility] Feb 05, 2024 11:00 AM [facility] [place] [facility] [facility] [place] [facility] Feb 05, 2024 01:30 PM [facility] [place] [facility] Feb 26, 2024 01:00 PM [facility] Active, Pending, and Scheduled Orders This section includes a listing of several types of active, pending, and scheduled orders, including clinic medications orders, diagnostic test orders, procedure orders and consult orders; where the start date of the order is 45 days before the date of the Encounter or 45 days after the date of theEncounter. The data comes from all [place] treatment facilities. Test Date/Time Test Type Test Details Facility Name Oct 02, 2023 11:26 AM Consult Order [facility]-D[facility]AL GENERAL Cons Supervisor Compressed Yeast's Choice [facility] Social History: Smoking Status (Most current) and Tobacco Use (All prior to encounter date) This section includes the most current, and the historical, smoking and tobacco- related health factors from the [place] facility where the Encounter took place. Current Smoking Status This section includes the most current smoking, or tobacco-related health factor, from the [place] facility where the Encounter took place. Date/Time Current Smoking Status Comment Facil ity Aug 06, 2023 01:17 PM VA-TOBACCO NEVER USED [facility] Advance Directives: All historical and current Section Date Range: From patient's date of to the date document was created. This section includes ALL of a patient's completed or amended [place] Advance and Rescinded Directives. The entries below indicate that a directive exists for the patient, but an actual copy is not included with this document. The data comes from all [place] facilities. Date Advance Directives Provider Source August 25, 2023 ADVANCE DIRECTIVE MICHELLE LEVINE [facility] Encounter Notes: All associated encounter notes This section contains the clinical notes associated to the Encounter. Date/Time Encounter Note(s) Provider Source Oct 02, 2023 11:37 AM DENTISTRY NOTE: LOCAL TITLE: DENTAL NOTE STANDARD TITLE: DENTISTRY NOTE DATE OF NOTE: OCT 02, 2023@11:37 ENTRY DATE: OCT 02, 2023@11:39:21 AUTHOR: HOHREITER,VINCENT EXP COSIGNER: URGENCY: STATUS: COMPLETED Patient Name: SHANICE YOUNGER, : 1945, Age: 78 Visit: V: Oct 02, 2023@11:00 CWM/NO/DENTAL/DMD 2. Primary PCE Diagnosis: K03.6 (DEPOSITS [ACCRETIONS] ON TEETH). Dental Category: 15-OPC, Class IV. Treatment Status: Active. Completed Care: (D0140) LIMIT ORAL EVAL PROBLM FOCUS. DX: K03.6 Deposits [Accretions] on Teeth (D0210) INTRAORAL FULL IMAGE SERIES. DX: K03.6 Deposits [Accretions] on Teeth Presentation/Chief Complaint: Patient presents for limited oral evaluation Patient has no dental complaints Vital Signs: Dental Pain (0-10): 0 Past Medical History and Medications: No significant changes since the last dental visit Active Problems: Long-term current use of anticoagulant ([facility] [id number]) Chronic hypoxemic respiratory failure ([facility] 433161798) COPD - Chronic obstructive pulmonary disease ([facility] [id number]) PAF - Paroxysmal atrial fibrillation ([facility] [id number]) PTSD - Post-traumatic stress disorder ([facility] [id number]) Obstructive sleep apnea ([facility] 52597346) CKD stage 3 ([facility] 636932044) FAYE - Generalised anxiety disorder ([facility] 26095205) Cognitive decline ([facility] 570552466) CAD - Coronary Artery Disease ([facility] 40026336) Exposure to potentially hazardous substance ([facility] [id number]) Glaucoma ([facility] 64662557) Insomnia ([facility] [id number]) Bilateral hearing loss ([facility] 31729462) GERD - Gastro-Esophageal Reflux Disease ([facility] 748387362) Active Medications: Medication reconciliation performed within the scope of dental. DABIGATRAN ETEXILATE 150MG ORAL CAP - (ACTIVE) ATORVASTATIN CALCIUM 80MG TAB - (ACTIVE) FUROSEMIDE 20MG TAB - (ACTIVE) METOPROLOL SUCCINATE 50MG SA TAB - (ACTIVE) OMEPRAZOLE 20MG EC CAP - (ACTIVE) SERTRALINE HCL 100MG TAB - (ACTIVE) PRIMIDONE 50MG TAB - (ACTIVE) ALBUTEROL 90MCG (CFC-F) 200D ORAL INHL - (ACTIVE) DILTIAZEM (EQV-CARDIZEM) 240MG 24HR CAP - (ACTIVE) EZETIMIBE 10MG TAB - (ACTIVE) Oral Examination: #4 root tip carious with hopeless prognosis No Significant Tooth Mobility Noted Assessment/Plan: Recommending [facility] General Care due to travel hardship No contraindications for planned procedure(s). Planned Procedures: (D7210) SURG REM ERUPTED TOOTH: 4. DX: (). (D0150) COMPREHENSVE ORAL EVALUATION: . DX: (). Reviewed risks/benefits/alternatives associated with the proposed treatment plan. Patient agrees to treatment plan as discussed. Disposition: No follow up appointment indicated Patient provided instructions for obtaining fee dental care subject to [place] authorization of proposed treatment plan. - - - - - - - - - - - - - - - - - - - - - - - - - - - - - - /charlotte CARREON DMD DENTIST Signed: 10/02/2023 11:39 MARCELINA CARREON [facility] Oct 02, 2023 11:33 AM DENTISTRY CONSULT: LOCAL TITLE: CONSULT REPORT/DENTAL STANDARD TITLE: DENTISTRY CONSULT DATE OF NOTE: OCT 02, 2023@11:33 ENTRY DATE: OCT 02, 2023@11:34:13 AUTHOR: MARCELINA CARREON COSIGNER: URGENCY: STATUS: COMPLETED Closing imaging consult /gurwinder/ MARCELINA CARREON DMD DENTIST Signed: 10/02/2023 11:34 [facility]
--- OUTSIDE RECORDS SUMMARY | 2024-05-13 13:34 | XMS_ITS | Clinical Summary ---
Author Organization [facility] Address [address] [place] [address] Phone Care Team Providers Care Software Maintenance Engineer Name Role Phone & Sports Medicine, Ahmet [facility] Unavailable [phone] Kenney PARK MD, Christ Hernandez Unavailable [phone] Leti CUELLO, Maryan Rose Unavailable [phone] Junaid CUELLO, Bora Unavailable [phone] Andres CUELLO, Narendra Primary Care Provider [phone] Deni Bernabe MD Unavailable [phone] Gloria Morris PA-C Unavailable [phone] Edita CUELLO, Martinez Unavailable [phone] Cathy CUELLO, Sylvester Penaloza Unavailable + [phone] Smiley Calderon Unavailable [phone] Dane Rasmussen MD Unavailable [phone] Colton Guardado MD Unavailable [phone] Mt Mistry DO Unavailable [phone] Kay CUELLO, Merle Unavailable [phone] Reason for Visit and Chief Complaint [Patient Encounter] Problems Includes: Problems addressed during this encounter and other active Problems All Visits Onset Date Resolved Date Provider Condition S tatus 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 06/25/2021 Gloria Odioso Arturo PA-C Active Last Documented On 04/02/2022 10:30AM ; [facility] Note: 50-69% left, non surgical in [address] gar, repeat in one year Diabetes Mellitus Type 2 with Complication 06/25/2021 Gloria MOFFETT-C Active Last Documented On 2 10:45AM ; [facility] Chronic Respiratory Failure 07/04/2020 Narendra miramontes MD Active Last Documented On 07/04/2020 11:28AM ; [facility] Note: on continuous home oxygen Coronary Artery Disease 04/21/2019 Jessica Mony yarbrough SUPERVISOR FILM PROCESSING Active Last Documented On 0 8:03AM ; [facility] Atherosclerosis Coronary Art maryann with Angina Pectoris 01/15/2019 Gloria MOFFETT-C Active Last Documented On 9 9:21AM ; [facility] Edema 01/14/2019 Philip BECKER Active Last Documented On 9 2:52PM ; [facility] 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 Gloria MOFFETT-C Active Last Documented On 9 8:57AM ; [facility] Note: per pulm notedECHO with 45-50%, mi ldly reduced LVSF 06/2017 Osteoarthritis Localized Primary Knees Bilateral 04/03/2018 Juany loyola PA-C Active Last Documented On 8 11:45AM ; [facility] 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 Narendra Campos MD Active Last Documented On 8 11:49AM ; [facility] Colon Polyps 06/20/2017 Martinez Kohler MD Active Last Documented On 8 11:24AM ; [facility] Atrial Fibrillation 10/10/2015 Narendra Campos MD Active Last Documented On 6 9:16AM ; [facility] Note: s/p ablation Chronic Obstructive Pulmonary Disease 11/29/2013 Narendra Campos MD Active Last Documented On 4 2:43PM ; [facility] Post-traumatic Stress Disorder 11/29/2013 Jt Campos MD Active Last Documented On 4 10:39AM ; [facility] Patellar Chondromalacia 03/02/2013 Narendra baltazar MD Active Last Documented On 4 7:42AM ; [facility] Note: Unchanged Asthma 09/04/2012 Narendra Campos MD Activ e Last Documented On 4 7:42AM ; [facility] Atherosclerosis Aorta 03/26/2012 Narendra mendez MD Active Last Documented On 4 7:42AM ; [facility] Note: on ct scan Rhinitis 08/04/2009 Narendra Campos MD Activ e Last Documented On 4 7:42AM ; [facility] Note: Unchanged Esophagitis Chronic Reflux 07/28/2009 Gloria Morris PA-C Active Last Documented On 4 2:20PM ; [facility] Note: Unchanged Hypertension Systemic 07/28/2009 Norma PANDEY Active Last Documented On 0 6:29PM ; [facility] Note: Unchanged Colonic Diverticulosis 10/06/2007 Narendra oconnor MD Active Last Documented On 4 7:42AM ; [facility] Note: Unchanged Hyperlipidemia Mixed 10/06/2007 Narendra gomez MD Active Last Documented On 4 7:42AM ; [facility] Note: Unchanged Plan of Treatment Pending Tests Order Diagnosis Results Due Ordering P rovider ZZZ Training BardyDx Paroxysmal atria l fibrillation 05/18/21 Colton Guardado MD Last Documented On 2 4:50PM ; [facility] ZZZ Training BardyDx Palpitations 05/25/21 Colton Garcia MD Last Documented On 2 5:47AM ; [facility] Care Programs Check if Patient is Eligible for CCM Services Last Documented On 8 12:04AM ; [facility] Future Tests Order Diagnosis Results Due Ordering Pr ovider Cardiology Studies Tilt Table Test Athscl heart disease of [place] coronary artery w/o [facility] 10/27/19 Colton Guardado MD Last Documented On 0 3:58PM ; [facility] Cardiology Studies Nuclear Stress Test Athscl heart disease of [place] coronary artery w/o [facility] 10/27/19 Colton Guardado MD Last Documented On 0 3:59PM ; [facility] Studies Echocardiogram Athscl heart disease of [place] coronary artery w/o [facility] 10/27/19 Colton Guardado MD Last Documented On 0 3:59PM ; [facility] Cardiology Studies Echocardiogram Paroxysmal at rial fibrillation 02/25/22 Colton Guardado MD Last Documented On 2 12:04PM ; [facility] Assessments Includes: Assessments from this encounter No Assessments Recorded Medical Equipment - Implanted Devices Includes: Current Devices No Medical Equipment Recorded Medications Includes: Medications discussed during this encounter and other current Medications New / Renewed during this visit Colton Guardado MD on 07/07/2023 dilTIAZem HCl ER Coated Beads 240 MG Oral Capsule Extended Release 24 Hour Provider: Colton Guardado MD 30 day supply: 30 capsule, 0 refills Diagnosis: 1 once daily Pharmacy: [facility] - [id number] [address], [id number] - Last Documented On 4 10:28AM By Neo Lovelace ; [facility] Current Medications (continue as prescribed) Trelegy Ellipta 100-62.5-25 MCG/ACT Inhalation Aerosol Powder Breath Activated 05/13/2023 Provider: Shubham Patel APRN Diagnosis: Chronic obstruct ana m pulmonary disease, unspecified 1 puff qd Last Documented On 4 2:24PM By Shubham Patel APRN ; [facility] Albuterol Sulfate HFA 108 (9 0 Base) MCG/ACT Inhalation Aerosol Solution 05/13/2023 Provider: Brittany Patel APRN Diagnosis: Shortness of tristin ath 2 puffs q4h prn Last Documented On 4 2:24PM By Shubham Patel APRN ; [facility] Levocetirizine Dihydrochlori de 5 MG Oral Tablet 05/13/2023 Provider: Shubham Patel APRN Diagnosis: Allergic rhiniti s, unspecified 1 once daily Last Documented On 4 2:24PM By Shubham Patel APRN ; [facility] Albuterol Sulfate HFA 108 (90 Base) MCG/ACT Inhalation Aerosol Solution 07/19/2022 Provider: Frannie Guidry DNP DESKIDDING MACHINE OPERATOR-BC Diagnosis: Shortness of tristin ath 2 puffs q4h prn Last Documented On 3 9:03AM By Frannie Garrison APRN ; [facility] Oxygen Inhalation Gas 04/02/2022 Provider: Diagnosis: Last Documented On 2 10:09AM By Gloria Morris PA-C ; [facility] Atorvastatin Calcium 80 MG Oral Tablet 02/20/2021 Provider: Gloria Briscoe Diagnosis: Mixed hyperlipid emia 1 once daily Last Documented On 2 9:52AM By Arlette Aj ; [facility] hydrALAZINE HCl 25 MG OR TABS 12/29/2020 Provider: Colton Guardado MD Diagnosis: every 8 hours as needed for for BP over 160 Last Documented On 2 9:53AM By Arlette Aj ; [facility] Metoprolol Succinate ER 50 M G Oral Tablet Extended Release 24 Hour 07/14/2020 Provider: Diagnosis: Last Documented On 1 4:45AM By Jsesica BECKER ; [facility] Furosemide 20 MG OR TABS 06/24/2019 Provider: Keegan Guardado MD Diagnosis: 1 once daily Last Documented On 1 11:14AM By Aleah Cerda ; [facility] Fluticasone Propionate 50MCG/ACT Nasal Suspension 02/19/2019 Provider: Gloria Morris PA-C Diagnosis: Chronic sinusiti s, unspecified use as directed 2 sprays eac h nare daily Last Documented On 9 8:23AM By Savita Caal ; [facility] Primidone 50 MG OR TABS 10/13/2018 Provider: Supriya Lombardo DO Diagnosis: Tremor, unspecif ied 3po q HS Last Documented On 9 8:22AM By Savita Caal ; [facility] Sertraline HCl 100MG Oral Tablet 09/07/2017 Provider : Diagnosis: Last Documented On 8 2:34PM By Colton Guardado M.D. ; [facility] Aspirin EC Low Dose 81MG Oral Tablet Delayed Release 0 07/11/2016 Provider: Diagnosis: Last Documented On 7 4:19PM By Colton Guardado M.D. ; [facility] Pradaxa 150MG Oral Capsule 07/11/2016 Provider: Diagnosis: Last Documented On 7 4:15PM By Colton Guardado M.D. ; [facility] Temazepam 15 MG OR CAPS 07/20/2014 Provider: Janay Morris PA-C Diagnosis: Long-term use of high-risk meds. 1-2 qHS prn. Last Documented On 5 11:02AM By Gloria Morris PA-C ; [facility] Medications Administered Includes: Administered Medications from this encounter No Administered Medications Recorded Results Includes: Results discussed during this encounter No Results Recorded For Specified Dates History of Present Illness Includes: History of Present Illness from this encounter No History of Present Illness Recorded Social History No Social History Recorded - Smoking Status Unknown Medical History Includes: Medical History addressed during this encounter No Medical History Recorded Family History Includes: Family History addressed during this encounter No Family History Recorded Review of Systems Includes: Review of Systems from this encounter No Review of Systems Recorded Functional Status Includes: Functional Status from this encounter No Functional Status Recorded Physical Exam Includes: Physical Exam from this encounter No Physical Exam Recorded Allergies Includes: Active Allergies Substance Type Reaction Onset Date Resolved Date Statu s Ranexa Allergy 05/13/2019 Active Last Documented On 06/16/2023 2:04PM ; [facility] Note: facial lip swelling listaprill Allergy swollen 07/13/2020 Active Last Documented On 4 2:04PM ; [facility] Encounters Encounter Provider Location Date Check-In Time Check-Out Time Diagnosis [Patient Encounter] Colton Guardado MD 4 9:58AM 11:59PM Insurance Includes: Active Insurance Policies Plan Name Member ID Group # Subscriber Relationship Effect ana m Dates 1 - Medicare Part B [id number] Nick Oliva Self 2 - [employer]/ Unicare [id number] Nick Oliva Self 07/13 - Unknown Advance Directives Includes: Current Advance Directives Directive Pat Aware Third Alliance Party Effective Date Reviewed [facility] Power of Moisture Meter Operator/Healthcare Surrogate Yes 08/08/2017 Current and Verified Clinical Notes Includes: Clinical Notes from this encounter No Clinical Notes Recorded
--- OUTSIDE RECORDS SUMMARY | 2024-05-13 13:34 | XMS_ITS | Encounter Summary ---
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 Name Role Phone ERNESTO ARBOLEDA Primary Care [...] PART A August 12, 2008 PART A [id number] Dawson YOUNGER PATIENT MEDICARE (WNR) MEDICARE (M) PART B August 12, 2008 PART B [id number] [phone] Dawson YOUNGER PATIENT MEDICARE (WNR) MEDICARE (M) PART A August 12, 2008 PART A [id number] [id number] Dawson YOUNGER PATIENT MEDICARE (WNR) MEDICARE (M) PART B August 12, 2008 PART B [id number] Dawson YOUNGER PATIENT MEDICARE (WNR) MEDICARE (M) PART A August 12, 2008 PART A [id number] Dawson YOUNGER PATIENT MEDICARE (WNR) MEDICARE (M) PART B August 12, 2008 PART B [id number] Dawson YOUNGER PATIENT MEDICARE (WNR) MEDICARE (M) PART B August 12, 2008 PART B [id number] Dawson YOUNGER PATIENT MEDICARE (WNR) MEDICARE (M) PART A August 12, 2008 PART A [id number] Dawson YUONGER PATIENT MEDICARE (WNR) MEDICARE (M) PART A August 12, 2008 PART A [id number] Dawson YOUNGER PATIENT MEDICARE (WNR) MEDICARE (M) PART B August 12, 2008 PART B [id number] [phone] Dawson YOUNGER PATIENT MEDICARE PART D (WNR) PRESCRIPT ION PART D Apr 14, 2015 PART D [id number] [phone] Dawson YOUNGER PATIENT UN[employer]ARE 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 I.C. MEDICAL EXPENSE (OPT/PROF ) [facility] August 12, 2008 [id number] [phone] Dawson YOUNGER PATIENT Selected Encounter This section includes the information on record at [place] for the Encounter. Date/Time Encounter Type Encounter Description Reason Provider Source Aug 11, 2023 09:56 AM QNHP OL DIG ASSMT&MGMT [facility] ICD-10-CM I48.0 Paroxysmal atrial fibrillation MICHELE VILLELA SANDRA Posey [facility] Encounter Template Text not used by [place] Assessments - Encounter Diagnoses This section includes the primary and secondary diagnoses documented for the Encounter. Date/Time Primary/Secondary Diagnosis Diagnosis Name Provider Source Aug 11, 2023 12:52 PM PRIMARY Paroxysmal atrial fibrillation MARCUS VILLELA Javad Posey [facility] Plan of Treatment: Future Appointments (+ 6 months) and Future Tests (+/- 45 days) The Plan of Treatment section includes future care activities for the patient from all [place] treatmentfacilities. This section includes future appointments and future orders which are active, pending or scheduled. Future Appointments This section includes appointments that were scheduled to occur 6 months from the date of the Encounter, up to a maximum of 20 appointments. The data comes from all [place] treatment facilities. Appointment Date/Time Appointment Type Appointme nt Facility Name August 14, 2023 08:00 AM AMBULATORY - PSYCHIATRY [facility] August 18, 2023 01:00 PM [facility]ORY [facility] NONE [facility] August 25, 2023 01:00 PM AMBULATORY - NONE [facility] August 26, 2023 01:45 PM AM[facility]ULATORY [facility]INE [facility] September 10, 2023 11:00 AM AMBULATORY - NONE [facility] Sep 23, 2023 09:00 AM AMBULATORY [facility] PS[facility] Oct 02, 2023 11:00 AM AMBULATORY - NONE [facility] Oct 30, 2023 02:30 PM AMBULATORY - MEDICINE [facility] Nov 07, 2023 01:00 PM AMBULATORY - REHAB [facility] Nov 13, 2023 10:00 AM AMBULATORY [facility] Nov 13, 2023 02:00 PM AM[facility]ULATORY [facility]INE [facility] Nov 14, 2023 01:00 PM AM[facility]ULATORY [facility]INE [facility] Nov 14, 2023 02:00 PM AM[facility]ULATORY [facility]ICINE [facility] Dec 01, 2023 08:30 AM AMBULATORY [facility] PS[facility]IATRY [facility] Dec 09, 2023 03:00 PM [facility] Dec 25, 2023 11:00 AM [facility] Jan 01, 2024 01:30 PM AMBULATORY - MEDICINE [facility] Jan 01, 2024 02:00 PM AMBULATORY - MEDICINE [facility] Jan 02, 2024 02:00 PM [facility] Jan 21, 2024 02:30 PM [facility] Advance Directives: All historical and current Section Date Range: From patient's date of to the date document was created. This section includes ALL of a patient's completed or amended [place] Advance and Rescinded Directives. The entries below indicate that a directive exists for the patient, but an actual copy is not included with this document. The data comes from all [place] facilities. Date Advance Directives Provider Source August 25, 2023 ADVANCE DIRECTIVE MICHELLE LEVINE [facility] Encounter Notes: All associated encounter notes This section contains the clinical notes associated to the Encounter. Date/Time Encounter Note(s) Provider Source Aug 11, 2023 09:56 AM PHARMACY MEDICATIO N MGT CONSULT: LOCAL TITLE: CONSULT REPORT/ANTICOAGULATION CLINIC STANDARD TITLE: PHARMACY MEDICATION MGT CONSULT DATE OF NOTE: AUG 11, 2023@09:56 ENTRY DATE: AUG 11, 2023@09:57:05 AUTHOR: ANITA VILLELA EXP COSIGNER: URGENCY: STATUS: COMPLETED ANTICOAGULATION DOAC MONITORING NOTE SUBJECTIVE: Patient identified through the DOAC population Management Tool based on the following criteria: [ ] Dosing Issue [ ] Critical Drug Interaction [ ] Cancer Treatment [ ] Active NSAID [ ] Labs Overdue [ ] Prosthetic Valve Replacement [ ] Notable Lab Value [ ] Overdue for Refill [ X ] Other: Pt transferring DOAC therapy to [facility] Comments: Pt transferring care to [facility] from [facility]. He has been on dabigatran therapy without ADR and received education from [facility] ACC. --------- OBJECTIVE: Indication for anticoagulation: [ X ] Atrial fibrilation [ ] Atrial flutter [ ] VTE (DVT or PE) [ ] Post-op DVT prophylaxis [ ] Other: Most recent lab values include the following: Patient reports outside Hgb results: Date: June 26, 2023 Results: 14.2 Location: [facility] Patient reports outside HCT results: Date: June 26, 2023 Results: 44.5 Location: [facility] Patient reports outside PLT results: Date: June 26, 2023 Results: 231 Location: [facility] Patient reports outside SCR results: Date: June 26, 2023 Results: 1.3 Location: [facility] Patient reports outside BUN results: Date: June 26, 2023 Results: 15 Location: [facility] Patient reports outside ALT results: Date: June 26, 2023 Results: 21 Location: [facility] Patient reports outside AST results: Date: June 26, 2023 Results: 16 Location: [facility] HEIGHT: 70 in [177.8 cm] (08/07/2023 15:14) WEIGHT: 193 lb [87.54 kg] (08/07/2023 15:14) BMI: BMI: 27.8 CREATININE-EGFR: SCr 1.3 06/26/23 [facility] CRCL IBW: 47.6mL/min CRCL ACT: 56.7mL/min CRCL ADJ: 46.3mL/min --------- ASSESSMENT: Pt is transitioning his care to [facility]. Pt has been stable on dabigratran for atrial fibrillation through [facility]. Pt has received DOAC education from [facility] and has been passively monitored. Pt doing well on current therapy. Action required? [ X ] Yes [ ] No Comments: Per review of [facility] notes, On Eliquis for a few months s/p ablation October 2015. Dabigatran rx written on 03/13/16, Started April 2016 . Pt also on primidone. Primidone is a 3A4 inducer. Dabigatran is not metabolized by CYP 3A4. Prodrug only is a P-gp substrate. As renal function is stable >50mL/min using actual body weight, pt on primidone, and has been on dabigatran without concern, pt to continue on therapy through [place] [facility]. --------- PLAN: [ ] No action required, dismiss flag [ X ] Will intervene: [ ] Patient education via phone/letter [ ] Schedule phone/[id number] follow up [ ] Lab ordered [ ] Discontinue interacting medication [ ] Discontinue DOAC [ ] Change to alternative DOAC [ ] Change DOAC dose [ ] Notify PCP [ ] Consult cardiology/hematology [ X ] Other: [facility] to [facility] processed [facility] and pt to be d/c'd to passive monitoring Time spent: 15 mins /gurwinder/ Anita Villela, Demetris, [facility] Clinical Grain Miller Helper Signed: 08/11/2023 12:52 Receipt Acknowledged By: 08/11/2023 13:06 /gurwinder/ LILIAM TRUJILLO [facility] Clinical Health Worker ANITA VILLELA OC
--- OUTSIDE RECORDS SUMMARY | 2024-05-13 13:34 | XMS_ITS | Encounter Summary ---
Author Name [facility] [place] [facility] [place] Address [address] [place] [address] Care Team Providers Care Private Eye Name Role Phone ERNESTO ARBOLEDA Primary Care [...] PART A August 12, 2008 PART A [id number] [phone] Dawson YOUNGER PATIENT MEDICARE (WNR) MEDICARE (M) PART B August 12, 2008 PART B [id number] [phone] Dawson YOUNGER PATIENT MEDICARE (WNR) MEDICARE (M) PART A August 12, 2008 PART A [id number] Dawson YOUNGER PATIENT MEDICARE (WNR) MEDICARE (M) PART B August 12, 2008 PART B [id number] Dawson YOUNGER PATIENT MEDICARE (WNR) MEDICARE (M) PART A August 12, 2008 PART A [id number] Dawson YOUNGER PATIENT MEDICARE (WNR) MEDICARE (M) PART B August 12, 2008 PART B [id number] Dawson YOUNGER PATIENT MEDICARE (WNR) MEDICARE (M) PART B August 12, 2008 PART B [id number] Dawson YOUNGER PATIENT MEDICARE (WNR) MEDICARE (M) PART A August 12, 2008 PART A [id number] Dawson YOUNGER PATIENT MEDICARE (WNR) MEDICARE (M) PART A August 12, 2008 PART A [id number] Dawson YOUNGER PATIENT MEDICARE (WNR) MEDICARE (M) PART B August 12, 2008 PART B [id number] Dawson YOUNGER PATIENT MEDICARE PART D (WNR) PRESCRIPT ION PART D Apr 14, 2015 PART D [id number] Dawson YOUNGER PATIENT UNICARE PREFERRED PROVIDER ORGANIZAT ION (PPO) [facility] August 12, 2008 [id number] [phone] Dawson YOUNGER PATIENT UNICARE MEDICARE [facility]PP[facility] August 12, 2008 [id number] [phone] Dawson YOUNGER PATIENT UNICARE-G. I.C. MEDICAL EXPENSE (OPT/PROF ) [facility] August 12, 2008 [id number] [phone] Dawson YOUNGER PATIENT Selected Encounter This section includes the information on record at CT for the Encounter. Date/Time Encounter Type Encounter Description Reason Provider Source Jun 30, 2023 10:30 AM OFFICE O/P EST LOW 20 MIN PRIMARY CARE/MEDICINE ICD-10-CM J44.9 Chronic obstructive pulmonary disease, unspecified UDYAVAR,KRYSTYNA E IHE Encounter Template Text not used by CT Assessments - Encounter Diagnoses This section includes the primary and secondary diagnoses documented for the Encounter. Date/Time Primary/Secondary Diagnosis Diagnosis Name Provider Source Jun 30, 2023 11:47 AM PRIMARY Chronic obstructive pulmonary disease, unspecified [facility] Jun 30, 2023 11:47 AM SECONDARY Essential tremor UDYAVAR[facility]STINESHO [facility] Jun 30, 2023 11:47 AM SECONDARY Paroxysmal atrial fibrillation [facility] Plan of Treatment: Future Appointments (+ 6 months) and Future Tests (+/- 45 days) The Plan of Treatment section includes future care activities for the patient from all CT treatmentfacilities. This section includes future appointments and future orders which are active, pending or scheduled. Future Appointments This section includes appointments that were scheduled to occur 6 months from the date of the Encounter, up to a maximum of 20 appointments. The data comes from all CT treatment facilities. Appointment Date/Time Appointment Type Appointme nt Facility Name Aug 07, 2023 03:00 PM AMBULATORY - MEDICINE [facility] August 14, 2023 08:00 AM AMBULATORY - PSYCHIATRY [facility] August 18, 2023 01:00 PM AMBULATORY - NONE [facility] August 25, 2023 01:00 PM AMBULATORY - NONE [facility] August 26, 2023 01:45 PM [facility]ULATORY [facility] September 10, 2023 11:00 AM AMBULATORY - NONE [facility] Sep 23, 2023 09:00 AM AMBULATORY - PSYCHIATRY [facility] Oct 02, 2023 11:00 AM AMBULATORY - NONE [facility] Oct 30, 2023 02:30 PM AMBULATORY - MEDICINE [facility] Nov 07, 2023 01:00 PM AMBULATORY - REHAB [facility]IN [facility] Nov 13, 2023 10:00 AM AMBULATORY - PS[facility]CHIATRY [facility] Nov 13, 2023 02:00 PM [facility]ULATORY [facility] [place] Nov 14, 2023 01:00 PM AMBULATORY - [facility]ICINE [facility] [place] [facility] Nov 14, 2023 02:00 PM AMBULATORY - [facility] Dec 01, 2023 08:30 AM [facility] Dec 09, 2023 03:00 PM AMBULATORY - [facility]IATRY [facility] [place] Dec 25, 2023 11:00 AM AM[facility] Lab Results: +/- 30 days of the encounter This section includes the Chemistry and Hematology Lab Results on record with CT for the patient. Radiology Reports and Pathology Reports are provided separately, in subsequent sections. Lab Results This section contains the Chemistry/Hematology Results that were resulted 30 days before or 30 daysafter the date of the Encounter. Date/Time Source Result Type Result - Unit Interpretation Reference Range Comment Jun 26, 2023 08:30 AM [facility] PSA WITH REFLEX FREE PSA PANEL Specimen Type: SERUM No comment entered. Ordering Provider: KRISTINE MORROW Report Released Date/Time: Jun 17, 2023 02:51 PM Reporting Lab: [facility] [address] [place] [phone] Performing Lab: [facility] [id number] [place] [id number] PROSTATE SPECIFI C ANTIGEN 5.0 ng/mL H 0.0-4.0 FREE PSA PERCENT 10.0 L >26 Jun 26, 2023 08:30 AM [facility] THYROID STIMULATING HORMONE Specimen Type: PLASMA No comment entered. Ordering Provider: KRISTINE MORROW Report Released Date/Time: Jun 17, 2023 02:51 PM Reporting Lab: [facility] [address] [facility] [phone] Performing Lab: [facility] [address] [address] [place] [phone] THYROID STIMULATING HORMONE 3.0800 u[IU]/mL 0.4600-4.70 00 Jun 26, 2023 08:30 AM [facility] LIPID PANEL (NON-FASTING) Specimen Type: PLASMA No comment entered. Ordering Provider: KRISTINE MORROW Report Released Date/Time: Jun 17, 2023 02:51 PM Reporting Lab: [facility] [place] [facility] [phone] Performing Lab: [place] [id number] [place] [phone] HDL 48 mg/dL >=40 CHOLESTEROL 143 mg/dL 0-199 LDL 84 mg/dL <99 Jun 26, 2023 08:30 AM [facility] URIC ACID Specimen Type: PLASMA No comment entered. Ordering Provider: KRISTINE MORROW Report Released Date/Time: Jun 17, 2023 02:51 PM Reporting Lab: [place] [address] [address] [place] [phone] Performing Lab: [place] [address] [address] [place] [address] URIC ACID 5.3 mg/dL 4-8.5 Jun 26, 2023 08:30 AM [facility] URINE DRUG SCREEN PANEL Specimen Type: URINE No comment entered. Ordering Provider: GAGANDEEP EDWARD Report Released Date/Time: Sep 24, 2022 08:16 AM Reporting Lab: [place] [address] [address] [place] [phone] Performing Lab: [place] [address] [address] [place] [phone] ETHANOL (URINE) < 10 mg/dL 0-10 OPIATES SCREEN < 6 ng/mL 0-300 CANNABINOIDS SCREEN < 10 ng/mL 0-50 AMPHETAMINES/MET H AMPHETAMINE SCREEN < 100 ng/mL 0-1000 BARBITURATES SCREEN 986 ng/mL H 0-200 BENZODIAZEPINES SCREEN 26 ng/mL 0-200 COCAINE SCREEN < 40 ng/mL 0-300 OXYCODONE (URINE) 0 ng/mL 0-100 CREATININE 99.2 mg/dL >20.0 URINE FENTANYL SCREEN Negative ng/mL Jun 26, 2023 08:30 AM [facility] COMPREHENSIVE METABOLIC PANEL Specimen Type: PLASMA No comment entered. Ordering Provider: KRISTINE MORROW Report Released Date/Time: Jun 17, 2023 02:51 PM Reporting Lab: [place] [id number] [place] [facility] [phone] Performing Lab: [place] [address] [address] [facility] [address] EGFR 56 CHLORIDE 107 mmol/L 98-109 UREA NITROGEN 15 mg/dL 8-23 CREATININE 99.2 mg/dL >20.0 CALCIUM 8.9 mg/dL 8.3-10.2 GLUCOSE 120 mg/dL H 65-110 ALT 21 U/L 11-44 AST 16 U/L 10-46 ALBUMIN 3.9 g/dL L 4-4.9 PROTEIN (TOTAL) 6.9 g/dL 6.8-8.7 SODIUM 141 mmol/L 136-145 POTASSIUM 4.2 mmol/L 3.5-5.2 CO2 25 mmol/L 22-32 BILIRUBIN,DIRECT 0.1 mg/dL 0-0.5 BILIRUBIN,TOTAL 0.4 mg/dL 0.2-1.3 ANION GAP 9 5-18 ALKALINE PHOSPHATASE 91 U/L 25-125 Jun 26, 2023 08:30 AM [facility] CBC WITH DIFFERENTIAL Specimen Type: BLOOD No comment entered. Ordering Provider: KRISTINE MORROW Report Released Date/Time: Jun 17, 2023 02:51 PM Reporting Lab: [place] [id number] [address] [place] [facility] [phone] Performing Lab: [place] [id number] [place] [facility] [phone] NUCLEATED RBC/10 0 WBC 0.0 /100{WBCs} 0-0 CBC COMPLETED Y RBC 4.65 10*12/L 4.10-5.70 HEMOGLOBIN 14.2 g/dL 13.0-17.0 RDW-SD 48.2 fL 38.0-50.0 ABSOLUTE IMM GRANULOCYTES (AUTO) 0.02 10*9/L 0.00-0.05 WBC 6.75 10*9/L 3.90-9.90 HEMATOCRIT 44.5 39.0-49.0 MCV 95.7 fL 81.0-98.0 MCH 30.5 pg 27.0-33.0 MCHC 31.9 g/dL 31.0-35.0 PLATELET COUNT 231 10*9/L 167-378 MPV 10.1 fL 9.4-12.8 ABSOLUTE NEUTROPHIL COUNT (AUTO) 3.79 10*9/L 1.73-6.37 ABSOLUTE LYMPHOCYTE COUNT (AUTO) 1.90 10*9/L 1.18-3.41 ABSOLUTE MONOCYT E COUNT (AUTO) 0.55 10*9/L 0.29-0.93 ABSOLUTE EOSINOPHIL COUNT (AUTO) 0.46 10*9/L H 0.05-0.45 ABSOLUTE BASOPHI L COUNT (AUTO) 0.03 10*9/L 0.00-0.08 Jun 26, 2023 08:30 AM [facility] URINALYSIS, COMPLETE Specimen Type: URINE No comment entered. Ordering Provider: KRISTINE MORROW Report Released Date/Time: Jun 17, 2023 02:51 PM Reporting Lab: [place] [id number] [place] [facility] [address] Performing Lab: [place] [id number] [place] [facility] [phone] BILIRUBIN, URINE NEG Negative KETONES, URINE NEG Negative GLUCOSE SCREEN, URINE NEG Negative PROTEIN SCREEN, URINE NEG Negative PH, URINE 6 4.5-8.0 WHITE BLOOD CELLS, URINE 1 /[HPF] 0-2 APPEARANCE CLEAR Clear NITRITE, URINE NEG Negative COLOR, URINE YELLOW Colorle ss - Yellow SPECIFIC GRAVITY , URINE 1.016 1.005-1.030 UROBILINOGEN, URINE <2 mg/dL 0.0-2.0 BLOOD, URINE NEG Negativ e - Trace LEUKOCYTE ESTERASE, URINE NEG Negative Vital Signs: All taken on the encounter date This section contains inpatient and outpatient Vital Signs collected on the date of the Encounter. Date/Time Temperature Pulse Blood Pressure Respiratory Rate SP02 Pain Height Weight Body Mass Index Source Jun 30, 2023 10:38 AM 150/94 [facility] Jun 30, 2023 10:28 AM 97.3 98 152/78 18 98 0 203 29 [facility] Social History: Smoking Status (Most current) and Tobacco Use (All prior to encounter date) This section includes the most current, and the historical, smoking and tobacco- related health factors from the CT facility where the Encounter took place. Current Smoking Status This section includes the most current smoking, or tobacco-related health factor, from the CT facility where the Encounter took place. Date/Time Current Smoking Status Comment Noemy gonzalezy Jun 30, 2023 10:[address]-TOBACCO NEVER USED [facility] Tobacco Use History This section includes a history of the smoking, or tobacco-related health factors, that were collected on or before the date of the Encounter. The data comes from the CT facility where the Encounter took place. Date/Time Smoking Status/Tobacco Use Comment F acility Jul 04, 2022 08:30 AM VA-TOBACCO NEVER USED [facility] Oct 11, 2020 07:30 AM VA-TOBACCO FORMER USER [facility] Oct 11, 2020 07:30 AM VA-TOBACCO QUIT 15 YRS OR MORE [facility] Aug 03, 2019 10:36 AM VA-TOBACCO FORMER USER [facility] Aug 03, 2019 10:[address]-TOBACCO QUIT 15 YRS OR MORE [facility] Jun 03, 2018 02:25 PM VA-TOBACCO FORMER USER [facility] Jun 03, 2018 02:25 PM VA-TOBACCO QUIT 15 YRS OR MORE [facility] Nov 13, 2017 10:57 AM QUIT TOBACCO >7 YEARS AGO [facility] Dec 25, 2016 11:20 AM LIFETIME NON-USER OF TOBACCO [facility] Jan 25, 2016 11:03 AM QUIT TOBACCO >7 YEARS AGO [facility] Dec 14, 2014 10:41 AM CURRENT TOBACCO USER [facility] Jan 09, 2010 08:26 AM NON TOBACCO USER - QUIT >7 YEARS AGO [facility] Jan 09, 2010 08:26 AM QUIT TOBACCO >7 YEARS AGO [facility] Jan 10, 2009 08:01 AM NON TOBACCO USER - QUIT >7 YEARS AGO [facility] Jan 10, 2009 08:01 AM QUIT TOBACCO >7 YEARS AGO [facility] Feb 02, 2008 02:38 PM NON TOBACCO USER - QUIT >7 YEARS AGO [facility] Feb 02, 2008 02:38 PM QUIT TOBACCO >7 YEARS AGO [facility] Advance Directives: All historical and current Section Date Range: From patient's date of to the date document was created. This section includes ALL of a patient's completed or amended CT Advance and Rescinded Directives. The entries below indicate that a directive exists for the patient, but an actual copy is not included with this document. The data comes from all CT facilities. Date Advance Directives Provider Source August 25, 2023 ADVANCE DIRECTIVE MICHELLE LEVINE [facility] Encounter Notes: All associated encounter notes This section contains the clinical notes associated to the Encounter. Date/Time Encounter Note(s) Provider Source Jun 30, 2023 11:40 AM PRIMARY CARE E & M NOTE: LOCAL TITLE: FIELD BROOMER NOTE STANDARD TITLE: PRIMARY CARE E & M NOTE DATE OF NOTE: JUN 30, 2023@11:40 ENTRY DATE: JUN 30, 2023@11:40:33 AUTHOR: TOYIN MORROW EXP COSIGNER: URGENCY: STATUS: COMPLETED SUBJECTIVE: CHIEF COMPLAINT/HPI: Patient presents today to the primary care clinic for his annual visit to follow-up on his medical problems including COPD, hypercholesterolemia and paroxysmal atrial fibrillation. No new health concerns today. Also followed by his non-VA local providers. States that he will be moving to [place] shortly and needs prescriptions renewed. PMH (problem list): Bossier's granuloma Hyperlipidemia Essential tremor Chronic obstructive lung disease Sleep apnea Obstructive sleep apnea syndrome - Autopap [id number] - NASAL PILLOWS Paroxysmal atrial fibrillation - ablation - 10/2015 History of male erectile disorder Depressive disorder Posttraumatic stress disorder, delayed onset Hearing Loss, Bilateral Current Medications: Active Outpatient Medications (excluding Supplies): Active Outpatient Medications Status 1) ATORVASTATIN CALCIUM 80MG TAB TAKE ONE-HALF TABLET BY ACTIVE MOUTH EVERY DAY FOR CHOLESTEROL 2) BRIMONIDINE TARTRATE 0.2% OPH SOLN INSTILL 1 DROP ACTIVE INTO RIGHT EYE EVERY MORNING FOR GLAUCOMA 3) DABIGATRAN ETEXILATE 150MG ORAL CAP TAKE ONE CAPSULE ACTIVE BY MOUTH TWICE A DAY TAKE WITH A FULL GLASS OF WATER,TO PREVENT BLOOD CLOTS 4) KETOCONAZOLE 2% SHAMPOO USE SMALL AMOUNT ON SCALP ACTIVE MON,FRI AND FRIDAY SEBORRHEIC DERMATITIS LATHER, APPLY TO SCALP, LEAVE ON FOR 5 MINUTES, THEN WASH OFF. DO THIS THREE TIMES PER WEEK. 5) LATANOPROST 0.005% OPH SOLN INSTILL 1 DROP INTO BOTH ACTIVE EYES AT BEDTIME FOR GLAUCOMA 6) METOPROLOL TARTRATE 50MG TAB TAKE ONE-HALF TABLET BY ACTIVE MOUTH TWICE A DAY FOR HEART AND BLOOD PRESSURE 7) OMEPRAZOLE 20MG EC CAP TAKE ONE CAPSULE BY MOUTH ACTIVE EVERY DAY FOR STOMACH 8) PRIMIDONE 50MG TAB TAKE ONE TABLET BY MOUTH THREE ACTIVE TIMES A DAY FOR TREMORS 9) QUETIAPINE FUMARATE 200MG TAB TAKE ONE-HALF TABLET BY ACTIVE (S) MOUTH AT BEDTIME FOR ANXIETY 10) TRIAMCINOLONE ACETONIDE 0.1% 80GM CR APPLY TO ACTIVE AFFECTED AREA ON SKIN TWICE A DAY NEEDED GRANULOMATOUS DERMATITIS APPLY TO AFFECTED AREAS ON LEGS TWICE DAILY NEEDED FOR FLARES. DO NOT USE OVER 2 WEEKS CONTINOUSLY. Pending Outpatient Medications Status 1) ATORVASTATIN CALCIUM 80MG TAB TAKE ONE-HALF TABLET BY PENDING MOUTH EVERY DAY FOR CHOLESTEROL 2) METOPROLOL TARTRATE 50MG TAB TAKE ONE-HALF TABLET BY PENDING MOUTH TWICE A DAY FOR HEART AND BLOOD PRESSURE 3) OMEPRAZOLE 20MG EC CAP TAKE ONE CAPSULE BY MOUTH PENDING EVERY DAY FOR STOMACH 4) PRIMIDONE 50MG TAB TAKE ONE TABLET BY MOUTH THREE PENDING TIMES A DAY FOR TREMORS Active Non-VA Medications Status 1) Non-VA FUROSEMIDE 20MG TAB 20MG MOUTH EVERY MORNING ACTIVE 2) Non-VA UMECLIDINIUM/VILANTEROL INHALER INHL,ORAL ACTIVE INHALATION EVERY DAY Side effects with medications? [ ] YES [ X ] NO MOST RECENT TESTS: Colonoscopy - [ ] YES [ ] NO PSA within the last year - [ X ] YES [ ] NO SOCIAL HISTORY: Alcohol use: Illicit (street) drugs used recently? [ ] YES [ X ] NO Tobacco use: Current [ ] YES [ X ] NO OUTSIDE RECORDS REVIEWED/AVAILABLE: [ ] YES [ X ] NO PHYSICAL EXAM: VITALS (most recent, as listed in the electronic record): B/P: 150/94 (06/30/2023 10:38) Pulse: 98 (06/30/2023 10:28) RR: 18 (06/30/2023 10:28) Temperature: 97.3 F [36.3 C] (06/30/2023 10:28) Height: 70 in [177.8 cm] (06/23/2023 12:48) BMI: 29.2 Pain: 0 (06/30/2023 10:28) (0-10 scale) Weight history - Most recent three weights: JUN 30, 2023@10:28:55 Weight: 203 lbs JUL 04, 2022@08:41:26 Weight: 190 lbs MAR 28, 2022@10:15:44 Weight: 191 lbs APPEARANCE: [ X ] Well Developed, well nourished obese male, on oxygen [ X ] No acute distress SKIN: Granuloma NECK : thyromegaly ( ) lymhadenopathy ( ) LUNGS: [ X ] CTA [ ] wheezes [ ] rhonchi CARDIOVASCULAR: Tachycardic RHYTHM: [ X ] regular [ ] irregular [ ] irregularly irregular AUSCULTATION: [ X ] no murmur [ ] murmur CAROTIDS: bruit ( )right ( )left ABDOMEN: [ X ] soft [ X ] nontender [ ] tender [ ] normal bowel sounds [ X ] no palpable organomegaly [ ] organomegaly present LOWER EXTREMITIES: Edema [ ] YES [ X ] NO Pulses: [ X ] 2+ bilaterally GAIT: [ X ] NML [ ] ABN Assistive devices - [ X ] None [ ] Cane [ ] Walker [ ] Wheel chair ASSESSMENT/PLAN: Moderate to severe COPD: Maintained on oxygen therapy as prescribed by his park guide; continue bronchodilator therapy as prescribed. Paroxysmal atrial fibrillation: Currently in sinus rhythm. On metoprolol 75 mg twice daily as prescribed along with anticoagulation therapy for CVA prophylaxis. GERD: Acid reflux symptoms well controlled; no dysphagia. Maintained on omeprazole 20 mg daily. Hypercholesterolemia: LDL cholesterol level is adequately controlled. On atorvastatin 40 mg daily. Essential tremors: Continues on primidone 50 mg 3 times daily as prescribed PTSD/depression: Continue current medical therapy as prescribed and monitored by psychiatry. Prescriptions renewed today. Up-to-date on all his immunizations. FOLLOW UP: [ ] week(s) [ 12 ] month(s) & RTC P.R.N. [ X ] Test results discussed with patient. Dictated using Notorious software. Misdictation and syntax errors possible. Time spent: 20 minutes Medication Reconciliation: Outpatient - Medication reconciliation included review of active, remote active, non-VA, , discontinued and pending VA prescriptions and patient allergies Was medication education provided for new medications or changes to medications? (including medication name, dose, route, reason for use, and potential side effects). No new medications or medication changes during this encounter. /gurwinder/ TOYIN MORROW M.D. STAFF PHYSICIAN, PRIMARY CARE Signed: 06/30/2023 11:47 [facility] Jun 30, 2023 10:33 AM PRIMARY CARE NURSING NOTE: LOCAL TITLE: NURSING NOTE - PRIMARY CARE STANDARD TITLE: PRIMARY CARE NURSING NOTE DATE OF NOTE: JUN 30, 2023@10:33 ENTRY DATE: JUN 30, 2023@10:33:27 AUTHOR: LIOR ARIAS EXP COSIGNER: URGENCY: STATUS: COMPLETED CBOC PRIMARY CARE NURSING NOTE Reason for Visit:annual exam .[place] stated he is moving back to [facility] Vital Signs: T: 97.3 F [36.3 C] (06/30/2023 10:28) P: 98 (06/30/2023 10:28) R: 18 (06/30/2023 10:28) B/P: 152/78 (06/30/2023 10:28) WGT: 203 lb [92.08 kg] (06/30/2023 10:28) BMI: 29.2 PAIN: 0 (06/30/2023 10:28) Allergies as documented in CPRS: LISINOPRIL MEDICATION REVIEW: Active Medication list reviewed with patient. (Active Outpatient Medications and active non-VA medication lists currently on file). Medication list is current and correct. Patient denies current use of new medications. VA Meds: Per CPRS Homeless: No Cognitive Screen: Mental Status: Alert, oriented X3 Abuse Screen: Is anyone in your home being hurt, hit, threatened, frightened or neglected? No There are no signs or symptoms of abuse. Needs social service technician? No FALLS RISK EVALUATION Age: 77 No History of Falls. Monitor at future appointments. Does patient have history of Diabetes? No history of diabetes. LEARNING NEEDS: Readiness to Learn: Attentive Motivation to learn: Asks questions Learning Preference: [id number] Learning Barrier: None Learning Needs Identified: None Physical Impairment/ Mobility: Independent Tobacco Use Screening: The patient has never used tobacco. Alcohol Use Screen (AUDIT-C): Alcohol Screen: SCREEN FOR ALCOHOL (AUDIT-C) An alcohol screening test (AUDIT-C) was negative (score=4). 1. How often did you have a drink containing alcohol in the past year? Consider a drink to be a 12 ounce can or bottle of regular beer, 8 ounces of malt liquor, a 5 ounce glass of table wine, or a 1.5 ounce shot of liquor (like scotch, gin, or vodka). Four or more times a week 2. How many drinks containing alcohol did you have on a typical day when you were drinking in the past year? One or two drinks 3. How often did you have six or more drinks on one occasion in the past year? Never Depression Screening: Perform PHQ-2 A PHQ-2 screen was performed. The score was 0 which is a negative screen for depression. Over the past two weeks, how often have you been bothered by the following problems? 1. Little interest or pleasure in doing things Not at all 2. Feeling down, depressed, or hopeless Not at all Fall Screen: Patient was asked if he/she has had any falls within the past 12 months. Patients states no falls in past 12 months. Sexual Orientation: The patient thinks of their sexual orientation as: Straight or Heterosexual Suicide Screen: C-SSRS Screening [place] Suicide Severity Rating Scale (C-SSRS) screener 1. Over the past month, have you wished you were or wished you could go to sleep and not wake up? No 2. Over the past month, have you had any actual thoughts of killing yourself? No 3. Over the past month, have you been thinking about how you might do this? Response not required due to responses to other questions. 4. Over the past month, have you had these thoughts and had some intention of acting on them? Response not required due to responses to other questions. 5. Over the past month, have you started to work out or worked out the details of how to kill yourself? Response not required due to responses to other questions. 6. If yes, at any time in the past month did you intend to carry out this plan? Response not required due to responses to other questions. 7. In your lifetime, have you ever done anything, started to do anything, or prepared to do anything to end your life (for example, collected pills, obtained a gun, gave away valuables, went to the roof but didn't jump)? No 8. If YES, was this within the past 3 months? Response not required due to responses to other questions. COVID-19 Immunization: Refused Moderna Monovalent COVID-19 vaccine Immunization: COVID-19 (MODERNA), MRNA, LNP-S, PF, 50 MCG/0.5 ML (AGES 12+ YEARS) Refusal Reason: PATIENT DECISION Patient refuses all immunization(s) in the COVID-19 group Date Documented: 06/30/23 10:36 /gurwinder/ LIOR ARIAS LPN LICENSED PRACTICAL NURSE Signed: 06/30/2023 10:39 LIOR ARIAS [facility]
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
--- OUTSIDE RECORDS SUMMARY | 2024-05-13 13:35 | XMS_ITS | Clinical Summary ---
Author Organization [facility] Address [address] [place] [place] [address] Phone Care Team Providers Care Fire Observer Name Role Phone & Sports Medicine, Ahmet Ortho Unavailable + [phone] Kenney PARK MD, Christ Hernandez Unavailable [phone] Leti CUELLO, Maryan Rose Unavailable [phone] Junaid CUELLO, Bora Unavailable [phone] Andres CUELLO, Narendra Primary Care Provider [phone] Deni Bernabe MD Unavailable [phone] Gloria Morris PA-C Unavailable [phone] Edita CUELLO, Martinez Unavailable [phone] Cathy CUELLO, Sylvester Penaloza Unavailable + [phone] Smiley Calderon Unavailable [phone] Dane Rasmussen MD Unavailable [phone] Colton Guardado MD Unavailable [phone] Mt Mistry DO Unavailable [phone] Kay CUELLO, Merle Unavailable [phone] Reason for Visit and Chief Complaint [Patient Encounter] Problems Includes: Problems addressed during this encounter and other active Problems All Visits Onset Date Resolved Date Provider Condition S tatus 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 06/25/2021 Gloria Odioso Arturo PA-C Active Last Documented On 04/02/2022 10:30AM ; [facility] Note: 50-69% left, non surgical in [address] gar, repeat in one year Diabetes Mellitus Type 2 with Complication 06/25/2021 Gloria MOFFETT-C Active Last Documented On 2 10:45AM ; [facility] Chronic Respiratory Failure 07/04/2020 Narendra miramontes MD Active Last Documented On 07/04/2020 11:28AM ; [facility] Note: on continuous home oxygen Coronary Artery Disease 04/21/2019 Jessica Mony yarbrough MULTIMEDIA PRODUCTION ASSISTANT Active Last Documented On 0 8:03AM ; [facility] Atherosclerosis Coronary Art maryann with Angina Pectoris 01/15/2019 Gloria MOFFETT-C Active Last Documented On 9 9:21AM ; [facility] Edema 01/14/2019 Philip BECKER Active Last Documented On 9 2:52PM ; [facility] 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 Gloria MOFFETT-C Active Last Documented On 9 8:57AM ; [facility] Note: per pulm notedECHO with 45-50%, mi ldly reduced LVSF 06/2017 Osteoarthritis Localized Primary Knees Bilateral 04/03/2018 Juany loyola PA-C Active Last Documented On 8 11:45AM ; [facility] 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 Narendra Campos MD Active Last Documented On 8 11:49AM ; [facility] Colon Polyps 06/20/2017 Martinez Kohler MD Active Last Documented On 8 11:24AM ; [facility] Atrial Fibrillation 10/10/2015 Narendra Campos MD Active Last Documented On 6 9:16AM ; [facility] Note: s/p ablation Chronic Obstructive Pulmonary Disease 11/29/2013 Narendra Campos MD Active Last Documented On 4 2:43PM ; [facility] Post-traumatic Stress Disorder 11/29/2013 Jt Campos MD Active Last Documented On 4 10:39AM ; [facility] Patellar Chondromalacia 03/02/2013 Narendra baltazar MD Active Last Documented On 4 7:42AM ; [facility] Note: Unchanged Asthma 09/04/2012 Narendra Campos MD Activ e Last Documented On 4 7:42AM ; [facility] Atherosclerosis Aorta 03/26/2012 Narendra mendez MD Active Last Documented On 4 7:42AM ; [facility] Note: on ct scan Rhinitis 08/04/2009 Narendra Campos MD Activ e Last Documented On 4 7:42AM ; [facility] Note: Unchanged Esophagitis Chronic Reflux 07/28/2009 Gloria Morris PA-C Active Last Documented On 4 2:20PM ; [facility] Note: Unchanged Hypertension Systemic 07/28/2009 Norma PANDEY Active Last Documented On 0 6:29PM ; [facility] Note: Unchanged Colonic Diverticulosis 10/06/2007 Narendra oconnor MD Active Last Documented On 4 7:42AM ; [facility] Note: Unchanged Hyperlipidemia Mixed 10/06/2007 Narendra gomez MD Active Last Documented On 4 7:42AM ; [facility] Note: Unchanged Plan of Treatment Pending Tests Order Diagnosis Results Due Ordering P rokaleigh Pulmonology Studies - DME CPAP-(Heated Humidity) Length of need 99 months Obstructive sleep apnea (adult) (pediatric) 05/15/20 Mt Mistry DO Last Documented On 1 2:50PM ; [facility] Pulmonology Studies PFT (Full) Shortness of breath 1 Mt Mistry DO Last Documented On 1 2:37PM ; [facility] Pulmonology Studies Pulmonary Rehab Chronic obst ructive pulmonary disease, unspecified 03/01/21 Mt Mistry DO Last Documented On 1 3:46PM ; [facility] Pulmonology Studies PFT (Full) Shortness of breath 2 Mt Mistry DO Last Documented On 2 11:03AM ; [facility] Pulmonology Studies - DME O2-Length of need 99 months Chronic obstructive pulmonary disease, unspecified 06/30/23 Mt Mistry DO Last Documented On 4 3:12PM ; [facility] Pulmonology Studies - DME Portable Oxygen Concentrator-Length of need 99 mos Chronic obstructive pulmonary disease, unspecified 06/30/23 Mt Mistry DO Last Documented On 4 3:14PM ; [facility] Care Programs Check if Patient is Eligible for CCM Services Last Documented On 8 12:04AM ; [facility] Future Tests Order Diagnosis Results Due Ordering Pr ovider Radiology Studies - Plain Film XRAY-Chest,PA/L AT Chronic obstructive pulmonary disease, unspecified 05/22/20 Mt Mistry DO Last Documented On 1 3:20PM ; [facility] Pulmonology Studies 6 Minute Walk Test Shortness of breath 06/14/20 Mt Mistry DO Last Documented On 1 11:40AM ; [facility] Pulmonology Studies Pulmonary Rehab Chronic obst ructive pulmonary disease, unspecified 01/24/22 Mt Mistry DO Last Documented On 2 8:38AM ; [facility] - *Radiology Study CT Chest- W/O contrast Other pneumonia, unspecified organism 08/15/22 Mt Mistry DO Last Documented On 3 3:12PM ; [facility] Assessments Includes: Assessments from this encounter No Assessments Recorded Medical Equipment - Implanted Devices Includes: Current Devices No Medical Equipment Recorded Medications Includes: Medications discussed during this encounter and other current Medications Current Medications (continue as prescribed) Treleradha Ellipta 100-62.5-25 MCG/ACT Inhalation Aerosol Powder Breath Activated 05/13/2023 Provider: Shubham Patel APRN Diagnosis: Chronic obstruct ana m pulmonary disease, unspecified 1 puff qd Last Documented On 4 2:24PM By Shubham Patel APRN ; [facility] Albuterol Sulfate HFA 108 (9 0 Base) MCG/ACT Inhalation Aerosol Solution 05/13/2023 Provider: Brittany Patel APRN Diagnosis: Shortness of tristin ath 2 puffs q4h prn Last Documented On 4 2:24PM By Shubham Patel APRN ; [facility] Levocetirizine Dihydrochlori de 5 MG Oral Tablet 05/13/2023 Provider: Shubham Patel APRN Diagnosis: Allergic rhiniti s, unspecified 1 once daily Last Documented On 4 2:24PM By Shubham Patel APRN ; [facility] Albuterol Sulfate HFA 108 (90 Base) MCG/ACT Inhalation Aerosol Solution 07/19/2022 Provider: Frannie Guidry DNP SPRAY MACHINE OPERATOR-BC Diagnosis: Shortness of tristin ath 2 puffs q4h prn Last Documented On 3 9:03AM By Frannie Garrison APRN ; [facility] Oxygen Inhalation Gas 04/02/2022 Provider: Diagnosis: Last Documented On 2 10:09AM By Gloria Morris PA-C ; [facility] Atorvastatin Calcium 80 MG Oral Tablet 02/20/2021 Provider: Gloria Briscoe Diagnosis: Mixed hyperlipid emia 1 once daily Last Documented On 2 9:52AM By Arlette Aj ; [facility] hydrALAZINE HCl 25 MG OR TABS 12/29/2020 Provider: Colton Guardado MD Diagnosis: every 8 hours as needed for for BP over 160 Last Documented On 2 9:53AM By Arlette Aj ; [facility] Metoprolol Succinate ER 50 M G Oral Tablet Extended Release 24 Hour 07/14/2020 Provider: Diagnosis: Last Documented On 1 4:45AM By Jessica BECKER ; [facility] Furosemide 20 MG OR TABS 06/24/2019 Provider: Keegan Guardado MD Diagnosis: 1 once daily Last Documented On 1 11:14AM By Aleah Cerda ; [facility] Fluticasone Propionate 50MCG/ACT Nasal Suspension 02/19/2019 Provider: Gloria Morris PA-C Diagnosis: Chronic sinusiti s, unspecified use as directed 2 sprays eac h nare daily Last Documented On 9 8:23AM By Savita Caal ; [facility] Primidone 50 MG OR TABS 10/13/2018 Provider: Supriya Lombardo DO Diagnosis: Tremor, unspecif ied 3po q HS Last Documented On 9 8:22AM By Savita Caal ; [facility] Sertraline HCl 100MG Oral Tablet 09/07/2017 Provider : Diagnosis: Last Documented On 8 2:34PM By Colton Guardado M.D. ; [facility] Aspirin EC Low Dose 81MG Oral Tablet Delayed Release 0 07/11/2016 Provider: Diagnosis: Last Documented On 7 4:19PM By Colton Guardado M.D. ; [facility] Pradaxa 150MG Oral Capsule 07/11/2016 Provider: Diagnosis: Last Documented On 7 4:15PM By Colton Guardado M.D. ; [facility] Temazepam 15 MG OR CAPS 07/20/2014 Provider: Janay Morris PA-C Diagnosis: Long-term use of high-risk meds. 1-2 qHS prn. Last Documented On 5 11:02AM By Gloria Morris PA-C ; [facility] Medications Administered Includes: Administered Medications from this [...] Active Last Documented On 06/16/2023 2:04PM ; [facility] Note: facial lip swelling listaprill Allergy swollen 07/13/2020 Active Last Documented On 2:04PM ; [facility] Encounters Encounter Provider Location Date Check-In Time Check-Out Time Diagnosis [Patient Encounter] Mt Mistry DO 06/30/2023 3:10PM 11:59PM Insurance Includes: Active Insurance Policies Plan Name Member ID Group # Subscriber Relationship Effect ana m Dates 1 - Medicare Part B [id number] Nick Oliva Self 2 - [employer]/ Unicare [id number] Nick Oliva Self 07/13 - Unknown Advance Directives Includes: Current Advance Directives Directive Pat Aware Third Democrat Effective Date Reviewed [facility] Power of Java Websphere Developer/Healthcare Surrogate Yes 08/08/2017 Current and Verified Clinical Notes Includes: Clinical Notes from this encounter No Clinical Notes Recorded
--- OUTSIDE RECORDS SUMMARY | 2024-05-13 13:35 | XMS_ITS | Encounter Summary ---
Author Name [facility] Address [address] [place] [address] Care Team Providers Care Sand Sifter Name Role Phone ERNESTO ARBOLEDA Primary Care [...] PART A August 12, 2008 PART A [id number] [phone] Dawson YOUNGER PATIENT MEDICARE (WNR) MEDICARE (M) PART B August 12, 2008 PART B [id number] [phone] Dawson YOUNGER PATIENT MEDICARE (WNR) MEDICARE (M) PART A August 12, 2008 PART A [id number] Dawson YOUNGER PATIENT MEDICARE (WNR) MEDICARE (M) PART B August 12, 2008 PART B [id number] [phone] Dawson YOUNGER PATIENT MEDICARE (WNR) MEDICARE (M) PART A August 12, 2008 PART A [id number] Dawson YOUNGER PATIENT MEDICARE (WNR) MEDICARE (M) PART B August 12, 2008 PART B [id number] Dawson YOUNGER PATIENT MEDICARE (WNR) MEDICARE (M) PART B August 12, 2008 PART B [id number] [phone] Dawson YOUNGER PATIENT MEDICARE (WNR) MEDICARE (M) PART A August 12, 2008 PART A [id number] [phone] Dawson YOUNGER PATIENT MEDICARE (WNR) MEDICARE (M) PART B August 12, 2008 PART B [id number] Dawson YOUNGER PATIENT MEDICARE (WNR) MEDICARE (M) PART A August 12, 2008 PART A [id number] Dawson YOUNGER PATIENT MEDICARE PART D (WNR) PRESCRIPT ION PART D Apr 14, 2015 PART D [id number] Dawson YOUNGER PATIENT UNICARE PREFERRED PROVIDER ORGANIZAT ION (PPO) MERGED WITH [facility] August 12, 2008 [id number] [phone] Dawson YOUNGER PATIENT UNICARE MEDICARE [facility]PPLE[facility] August 12, 2008 [id number] [phone] Dawson YOUNGER PATIENT UNICARE-G. I.C. MEDICAL EXPENSE (OPT/PROF ) [facility] August 12, 2008 [id number] Dawson YOUNGER PATIENT Selected Encounter This section includes the information on record at [place] for the Encounter. Date/Time Encounter Type Encounter Description Reason Provider Source August 25, 2023 03:47 PM OFFICE O/P EST SF 10 MIN DERMATOLOGY ICD-10-CM L92.0 NARENDRA Ramirez Javad Encounter Template Text not used by [place] Assessments - Encounter Diagnoses This section includes the primary and secondary diagnoses documented for the Encounter. Date/Time Primary/Secondary Diagnosis Diagnosis Name Provider Source August 25, 2023 03:53 PM PRIMARY Granuloma NARENDRA Merritt [facility] Plan of Treatment: Future Appointments (+ 6 months) and Future Tests (+/- 45 days) The Plan of Treatment section includes future care activities for the patient from all [place] treatmentfacilities. This section includes future appointments and future orders which are active, pending or scheduled. Future Appointments This section includes appointments that were scheduled to occur 6 months from the date of the Encounter, up to a maximum of 20 appointments. The data comes from all [place] treatment facilities. Appointment Date/Time Appointment Type Appointme nt Facility Name August 26, 2023 01:45 PM AMBULATORY - MEDICINE [facility] [place] [facility] September 10, 2023 11:00 AM AMBULATORY - NONE [facility] [place] [facility] Sep 23, 2023 09:00 AM AMBULATORY - PSYCHIATRY [facility] [place] [facility] Oct 02, 2023 11:00 AM AMBULATORY - NONE [facility] [place] [facility] Oct 30, 2023 02:30 PM AMBULATORY - MEDICINE [facility] Nov 07, 2023 01:00 PM AMBULATORY - REHAB [facility] Nov 13, 2023 10:00 AM AMBULATORY - PSYCHIATRY [facility] [place] [facility] Nov 13, 2023 02:00 PM AMBULATORY - MEDICINE [facility] [place] [facility] Nov 14, 2023 01:00 PM AMBULATORY - MEDICINE [facility] [place] [facility] Nov 14, 2023 02:00 PM AMBULATORY - MEDICINE [facility] [place] [facility] Dec 01, 2023 08:30 AM AMBULATORY - PSYCHIATRY [facility] [place] [facility] Dec 09, 2023 03:00 PM AMBULATORY - PSYCHIATRY [facility] [place] [facility] Dec 25, 2023 11:00 AM AMBULATORY - PSYCHIATRY [facility] [place] [facility] Jan 01, 2024 01:30 PM AMBULATORY - MEDICINE [facility] [place] [facility] Jan 01, 2024 02:00 PM [facility] Jan 02, 2024 02:00 PM [facility] Jan 21, 2024 02:30 PM [facility] Jan 21, 2024 02:31 PM [facility] Feb 05, 2024 11:00 AM [facility] Feb 05, 2024 01:30 PM [facility] Active, Pending, and Scheduled Orders This section includes a listing of several types of active, pending, and scheduled orders, including clinic medications orders, diagnostic test orders, procedure orders and consult orders; where the start date of the order is 45 days before the date of the Encounter or 45 days after the date of theEncounter. The data comes from all [place] treatment facilities. Test Date/Time Test Type Test Details Facility Name Oct 02, 2023 11:26 AM Consult Order [facility] Cons [facility] Advance Directives: All historical and current Section Date Range: From patient's date of to the date document was created. This section includes ALL of a patient's completed or amended [place] Advance and Rescinded Directives. The entries below indicate that a directive exists for the patient, but an actual copy is not included with this document. The data comes from all [place] facilities. Date Advance Directives Provider Source August 25, 2023 ADVANCE DIRECTIVE MICHELLE LEVINE [facility] Encounter Notes: All associated encounter notes This section contains the clinical notes associated to the Encounter. Date/Time Encounter Note(s) Provider Source August 25, 2023 03:47 PM TELEIMAGING REPORT : LOCAL TITLE: CONSULT-TELEDERMATOLOGY IMAGING REPORT STANDARD TITLE: TELEIMAGING REPORT DATE OF NOTE: AUGUST 25, 2023@15:47 ENTRY DATE: AUGUST 25, 2023@15:48:07 AUTHOR: NARENDRA SHIN COSIGNER: URGENCY: STATUS: COMPLETED HISTORY: 78-year-old man presents for evaluation of skin lesions on the right elbow and bilateral knees. The history states that this condition has been seen at the [facility] and monitored for the past 18 years. The spots are asymptomatic. A biopsy showed granulomatous dermatitis most consistent with actinic granulomas of [place]. OVERALL CONSULT/IMAGE QUALITY: Fully satisfactory EXAM: Photographs show several annular dusky pink patches with atrophic appearing centers on the bilateral knees and right elbow. IMPRESSION BASED ON IMAGES AND INFORMATION REVIEWED: PROBLEM A: Diagnosis: Granuloma annulare / actinic granuloma RECOMMENDATIONS FOR REFERRING PROVIDER: PROBLEM A: Other recommendations: These are benign lesions and do not require treatment unless symptomatic. If the patient requires treatment there are numerous potential interventions both topically, injected, systemically that should be discussed with a dermatology provider. RECOMMENDED FOLLOW-UP: Consult to Dermatology clinic for follow up BAILEY: Cumulative time of review and management: 5 minutes or more /gurwinder/ Narendra Shin PA-C Dermatology Signed: 08/25/2023 15:53 NARENDRA SHIN [facility]
--- OUTSIDE RECORDS SUMMARY | 2024-05-13 13:36 | XMS_ITS | Encounter Summary ---
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 Operator Name Role Phone ERNESTO ARBOLEDA Primary [...] PART B August 12, 2008 PART B [id number] Dawson YOUNGER PATIENT MEDICARE (WNR) MEDICARE (M) PART A August 12, 2008 PART A [id number] Dawson YOUNGER PATIENT MEDICARE (WNR) MEDICARE (M) PART A August 12, 2008 PART A [id number] Dawson YOUNGER PATIENT MEDICARE (WNR) MEDICARE (M) PART B August 12, 2008 PART B [id number] Dawson YOUNGER PATIENT MEDICARE (WNR) MEDICARE (M) PART B August 12, 2008 PART B [id number] [phone] Dawson YOUNGER PATIENT MEDICARE (WNR) MEDICARE (M) PART A August 12, 2008 PART A [id number] [phone] Dawson YOUNGER PATIENT MEDICARE (WNR) MEDICARE (M) PART B August 12, 2008 PART B [id number] [phone] Dawson YOUNGER PATIENT MEDICARE (WNR) MEDICARE (M) PART B August 12, 2008 PART B [id number] Dawson YOUNGER PATIENT MEDICARE (WNR) MEDICARE (M) PART A August 12, 2008 PART A [id number] Dawson YOUNGER PATIENT MEDICARE (WNR) MEDICARE (M) PART A August 12, 2008 PART A [id number] [phone] Dawson YOUNGER PATIENT MEDICARE PART D (WNR) PRESCRIPT ION PART D Apr 14, 2015 PART D [id number] Dawson YOUNGER PATIENT UNICARE PREFERRED PROVIDER ORGANIZAT ION (PPO) [facility] August 12, 2008 [id number] Dawson YOUNGER PATIENT UNICARE MEDICARE SUPPLEMEN FARHAD [facility] N August 12, 2008 [id number] [phone] Dawson YOUNGER PATIENT UNICARE-G. I.C. MEDICAL EXPENSE (OPT/PROF ) [facility] N August 12, 2008 [id number] Dawson YOUNGER PATIENT Selected Encounter This section includes the information on record at CT for the Encounter. Date/Time Encounter Type Encounter Description Reason Provider Source Feb 05, 2024 01:30 PM INTRM OPH EXAM EST PATIENT OPTOMETRY ICD-10-CM 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, right eye, mild stage OSHINSKIE,CELENA ROYER J IHE Encounter Template Text not used by VA Assessments - Encounter Diagnoses This section includes the primary and secondary diagnoses documented for the Encounter. Date/Time Primary/Secondary Diagnosis Diagnosis Name Provider Source Feb 06, 2024 09:03 AM PRIMARY Capslr glaucoma w/pseudxf lens, right eye, mild stage OSHINSKIE,CELENA ROYER J [facility] [place] [facility] Feb 06, 2024 09:03 AM SECONDARY Capslr glaucoma w/pseudxf lens, left eye, mild stage OSHINSKIE,CELENA ROYER J [facility] [place] [facility] Plan of Treatment: Future Appointments (+ [...] Appointment Type Appointme nt Facility Name Feb 26, 2024 01:00 PM AMBULATORY - MEDICINE [facility] Apr 15, 2024 11:00 AM AMBULAT[facility] [place] [facility] Apr 20, 2024 02:00 PM AMBULATORY - MEDICINE [facility] [place] [facility] Apr 22, 2024 10:00 AM AM[facility]ULATORY [facility]ICINE [facility] [place] [facility] Apr 28, 2024 01:00 PM AMBULATORY - PS[facility]CHIATRY [facility] [place] [facility] Apr 28, 2024 01:01 PM AMBULATORY - [facility]CHIATRY [facility] [place] [facility] May 11, 2024 01:30 PM AMBULATORY - [facility]AB MEDICIN E [facility] [place] [facility] May 26, 2024 01:30 PM AMBULATORY - MEDICINE ANA [facility] May 26, 2024 03:00 PM AMBULATORY - PS[facility]CHIATRY [facility] [place] [facility] May 26, 2024 03:01 PM AMBULATORY - PS[facility]CHIATRY [facility] [place] [facility] Jun 22, 2024 01:00 PM AMBULATORY - MEDICINE [facility] Jun 22, 2024 03:00 PM AMBULATORY - NONE [facility] Active, Pending, and Scheduled Orders This section includes a listing of several types of active, pending, and scheduled orders, including clinic medications orders, diagnostic test orders, procedure orders and consult orders; where the start date of the order is 45 days before the date of the Encounter or 45 days after the date of theEncounter. The data comes from all [place] treatment facilities. Test Date/Time Test Type Test Details Facility Name Feb 26, 2024 12:50 PM Consult Order [facility]-MRI Cons Office Rental Clerk's [facility] Social History: Smoking Status (Most current) and [...] 06, 2023 01:17 PM VA-TOBACCO NEVER USED [facility] Advance Directives: All historical and current [...] August 25, 20[address] LEVINE [facility] Encounter Notes: All associated encounter notes This section contains the clinical notes associated to the Encounter. 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 check after increasing brimondine to bid OD only and continuing latanoprost OU qhs His last VF showed inferior arcuate OD and superior arcuate OS that appeared mildly progressive compared to last VF in [place] [facility] denies any changes in vision since last exam denies any irritation or redness with eye drops VA with OD 20/20 OS 20/25+2 cornea clear no K spindle AC D and Q OU lids/lashes telangectasias OU iris flat, blue OU no tids OU conj bulbar pinguecula N and T OU palpebral mild erythema OU angles gr 4 no PXF on pupil border A 1) 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 Stress importance of compliance and persistency with glaucoma medication when prescribed, timely follow up as well as the role of ancillary testing. Exclusion criteria for ancillary testing include significantly reduced acuity, mental status changes affecting the patient's ability to attend to the test or other physical limitations that would prohibit the patient's ability to participate in testing. Medication Reconciliation: Outpatient: Has the patient been taking medications as documented in the EMLR? YES: The patient has been taking medications as documented in the EMLR. Essential Medication List for Review used to complete this medication reconciliation. INCLUDED IN THIS LIST: Alphabetical list of active outpatient prescriptions dispensed from this [facility] (local) and dispensed from another VA or [facility] facility (remote) as well as inpatient orders (local, pending and active), local clinic medications, locally documented non-VA medications, and local prescriptions that have or been discontinued in the past 90 days. - All changes in medications, including all non-VA/Herbal/OTC medications were entered into CPRS. - If there were any medications the patient should no longer take, they were discontinued. - The patient/caregiver was instructed to update this list, discard old lists, and take this list to the next appointment, whether with a VA or non-VA provider. Medication List: JLV Link Data on this list may not be complete. Please check JLV. Allergies/ADRs (Tool #5) FACILITY ALLERGY/ADR -------- [facility] Med. Reconciliation (Tool #1) INCLUDED IN THIS LIST: Alphabetical list of active outpatient prescriptions dispensed from this [place] (local) and dispensed from another [place] or [facility] facility (remote) as well as inpatient orders (local pending and active), local clinic medications, locally documented non-VA medications, and local prescriptions that have or been discontinued in the past 90 days. Non-VA Meds Last Documented On: Data not found NOTE The display of VA prescriptions dispensed from another [place] or [facility] facility (remote) is limited to active outpatient prescription entries matched to National Drug File at the originating site and may not include some items such as investigational drugs, compounds, etc. NOT INCLUDED IN THIS LIST: Medications self-entered by the patient into personal health records (i.e. [employer]) are NOT included in this list. Non-VA medications documented outside this [place], remote inpatient orders (regardless of status) and remote clinic medications are NOT included in this list. The patient and provider must always discuss medications the patient is taking, regardless of where the medication was dispensed or obtained. OUTPT ALBUTEROL 90MCG (CFC-F) 200D ORAL INHL (Status = Active) INHALE 2 PUFFS BY MOUTH FOUR TIMES DAILY NEEDED FOR BRONCHOSPASM Rx# [id number] Last Released: 11/12/23 Qty/Days Supply: Rx Expiration Date: 08/07/24 Refills Remainin Indication: FOR BRONCHOSPASM Remote ATORVASTATIN CA 80MG TAB TAKE ONE-HALF TABLET BY MOUTH EVERY DAY FOR CHOLESTEROL Last Filled: 11/10/23 (Active at [facility]) Rx Expiration Date: 06/30/24 Days Supply: 90 OUTPT ATORVASTATIN CALCIUM 80MG TAB (Status = Active) TAKE ONE TABLET BY MOUTH ONCE DAILY FOR HIGH CHOLESTEROL Rx# [id number] Last Released: 08/13/23 Qty/Days Supply: 90 Rx Expiration Date: 08/08/24 Refills Remainin Indication: FOR HIGH CHOLESTEROL OUTPT BRIMONIDINE TARTRATE 0.2% OPH SOLN (Status = Discontinued) INSTILL 1 DROP INTO THE RIGHT EYE EVERY MORNING FOR INCREASED PRESSURE IN THE EYE FOR GLAUCOMA Rx# [id number] Last Released: 11/21/23 Qty/Days Supply: Rx Expiration Date: 11/14/24 Refills Remainin Indication: FOR INCREASED PRESSURE IN THE EYE OUTPT BRIMONIDINE TARTRATE 0.2% OPH SOLN (Status = Active) INSTILL 1 DROP INTO THE RIGHT EYE TWICE DAILY FOR GLAUCOMA Rx# [id number] Last Released: 01/03/24 Qty/Days Supply: Rx Expiration Date: 01/01/25 Refills Remainin Indication: FOR INCREASED PRESSURE IN THE EYE Remote BRIMONIDINE TARTRATE 0.2% SOLN,OPH INSTILL 1 DROP INTO RIGHT EYE EVERY MORNING FOR GLAUCOMA Last Filled: 06/16/23 (Active at [facility]) Rx Expiration Date: 03/28/24 Days Supply: 90 OUTPT CARBOXYMETHYLCELLULOSE NA 0.5% OPH SOLN (Status = Active) INSTILL 1 DROP INTO EACH EYE FOUR TIMES A DAY FOR DRY EYE Rx# [id number] Last Released: 11/21/23 Qty/Days Supply: Rx Expiration Date: 11/14/24 Refills Remainin Indication: FOR DRY EYE OUTPT DABIGATRAN ETEXILATE 150MG ORAL CAP (Status = Active) TAKE ONE CAPSULE BY MOUTH TWICE DAILY TO PREVENT BLOOD CLOTS (ONCE OPENED, THE MEDICATION MUST BE USED WITHIN 4 MONTHS) Rx# [id number] Last Released: 11/12/23 Qty/Days Supply: 180/90 Rx Expiration Date: 08/13/24 Refills Remainin Indication: TO PREVENT BLOOD CLOTS OUTPT DILTIAZEM (EQV-CARDIZEM) 240MG 24HR CAP (Status = Active) TAKE ONE CAPSULE BY MOUTH ONCE DAILY FOR ATRIAL FIBRILLATION Rx# [id number] Last Released: 11/05/23 Qty/Days Supply: Rx Expiration Date: 08/07/24 Refills Remainin Indication: FOR ATRIAL FIBRILLATION OUTPT DOXYCYCLINE HYCLATE 100MG TAB (Status = ) TAKE ONE TABLET BY MOUTH TWICE DAILY UPPER RESPIRATORY INFECTION Rx# [id number] Last Released: 10/30/23 Qty/Days Supply: 25/10 Rx Expiration Date: 11/29/23 Refills Remainin Indication: UPPER RESPIRATORY INFECTION OUTPT EZETIMIBE 10MG TAB (Status = Active) TAKE ONE TABLET BY MOUTH ONCE DAILY TO LOWER CHOLESTEROL Rx# [id number] Last Released: 01/27/24 Qty/Days Supply: Rx Expiration Date: 08/07/24 Refills Remainin Indication: FOR HIGH CHOLESTEROL OUTPT FUROSEMIDE 20MG TAB (Status = Active) TAKE ONE TABLET BY MOUTH ONCE DAILY NEEDED FOR VISIBLE WATER RETENTION TO REMOVE FLUID/CONTROL BLOOD PRESSURE Rx# [id number] Last Released: 11/12/23 Qty/Days Supply: Rx Expiration Date: 08/08/24 Refills Remainin Indication: FOR VISIBLE WATER RETENTION Remote KETOCONAZOLE 2% SHAMPOO USE SMALL AMOUNT ON SCALP FRI,FRI AND FRIDAY SEBORRHEIC DERMATITIS LATHER, APPLY TO SCALP, LEAVE ON FOR 5 MINUTES, THEN WASH OFF. DO THIS THREE TIMES PER WEEK. Last Filled: 12/22/23 (Active at [facility]) Rx Expiration Date: 03/31/24 Days Supply: 30 OUTPT LATANOPROST 0.005% OPH SOLN (Status = Active) INSTILL 1 DROP INTO EACH EYE AT BEDTIME FOR INCREASED PRESSURE IN THE EYE Rx# [id number] Last Released: 11/19/23 Qty/Days Supply: 7. Rx Expiration Date: 11/14/24 Refills Remainin Indication: FOR INCREASED PRESSURE IN THE EYE OUTPT METOPROLOL SUCCINATE 50MG SA TAB (Status = Active) TAKE ONE TABLET BY MOUTH ONCE DAILY FOR BLOOD PRESSURE/HEART Rx# [id number] Last Released: 11/12/23 Qty/Days Supply: Rx Expiration Date: 08/08/24 Refills Remainin Indication: FOR HIGH BLOOD PRESSURE Remote METOPROLOL TARTRATE 50MG TAB TAKE ONE-HALF TABLET BY MOUTH TWICE A DAY FOR HEART AND BLOOD PRESSURE Last Filled: 11/10/23 (Active at [facility]) Rx Expiration Date: 06/30/24 Days Supply: 90 Remote OMEPRAZOLE 20MG CAP,EC TAKE ONE CAPSULE BY MOUTH EVERY DAY FOR STOMACH Last Filled: 07/30/23 (Active at [facility]) Rx Expiration Date: 06/30/24 Days Supply: 90 OUTPT OMEPRAZOLE 20MG EC CAP (Status = Active) TAKE ONE CAPSULE BY MOUTH EVERY MORNING 30 MINUTES BEFORE BREAKFAST FOR GASTROESOPHAGEAL REFLUX DISEASE Rx# [id number] Last Released: 11/12/23 Qty/Days Supply: Rx Expiration Date: 08/08/24 Refills Remainin Indication: FOR GASTROESOPHAGEAL REFLUX DISEASE OUTPT PRIMIDONE 50MG TAB (Status = Active) TAKE ONE TABLET BY MOUTH ONCE DAILY FOR SIMPLE SEIZURE Rx# [id number] Last Released: 11/12/23 Qty/Days Supply: Rx Expiration Date: 08/08/24 Refills Remainin Indication: FOR SIMPLE SEIZURE Remote PRIMIDONE 50MG TAB TAKE ONE TABLET BY MOUTH THREE TIMES A DAY FOR TREMORS Last Filled: 07/30/23 (Active at [facility]) Rx Expiration Date: 06/30/24 Days Supply: 90 OUTPT QUETIAPINE FUMARATE 100MG TAB (Status = ) TAKE ONE TABLET BY MOUTH AT BEDTIME FOR ANXIETY Rx# [id number] Last Released: 10/30/23 Qty/Days Supply: Rx Expiration Date: 11/29/23 Refills Remainin Indication: FOR ANXIETY Remote QUETIAPINE FUMARATE 200MG TAB TAKE ONE-HALF TABLET BY MOUTH AT BEDTIME FOR ANXIETY Last Filled: 07/01/23 (Active at [facility]) Rx Expiration Date: 04/23/24 Days Supply: 30 OUTPT SERTRALINE HCL 100MG TAB (Status = Active) TAKE ONE TABLET BY MOUTH ONCE DAILY FOR POSTTRAUMATIC STRESS SYNDROME Rx# [id number] Last Released: 11/12/23 Qty/Days Supply: Rx Expiration Date: 08/08/24 Refills Remainin Indication: FOR POSTTRAUMATIC STRESS SYNDROME OUTPT TRAZODONE HCL 100MG TAB (Status = Discontinued) TAKE 1/2 - 1 TABLET BY MOUTH AT BEDTIME NEEDED FOR INSOMNIA ASSOCIATED WITH DEPRESSION Rx# [id number] Last Released: 11/14/23 Qty/Days Supply: Rx Expiration Date: 11/13/24 Refills Remainin Indication: FOR INSOMNIA ASSOCIATED WITH DEPRESSION OUTPT TRAZODONE HCL 100MG TAB (Status = Active) TAKE TWO TABLETS BY MOUTH AT BEDTIME FOR INSOMNIA ASSOCIATED WITH DEPRESSION Rx# [id number] Last Released: 01/22/24 Qty/Days Supply: 180/90 Rx Expiration Date: 01/21/25 Refills Remainin Indication: FOR INSOMNIA ASSOCIATED WITH DEPRESSION SUPPLIES PHARMACY TERMS AND POSSIBLE PATIENT ACTIONS INPT = CT inpatient order IV = CT intravenous medication OUTPT = CT outpatient prescription PHARMACY POSSIBLE PATIENT TERMS EXPLANATION ACTIONS -------- - ACTIVE A prescription that can be If you have refills, filled at the local [place] pharmacy. you may request a refill of this prescription from your [place] pharmacy. CLINIC A medication you received during If you have questions a visit to a [place] clinic or about this medication emergency department. contact your [place] healthcare team. DISCONTINUED A prescription your provider has Contact your VA stopped. It is no longer healthcare team if you available to be sent to you or need more of this picked up at the [place] pharmacy medication. window. A prescription which is too old Contact your VA to fill. This does not refer to healthcare team if you the expiration date of the need more of this medication in the container. medication. NON-VA A medication that came from If this medication someplace other than a VA information is pharmacy. This may be a incorrect or out of prescription from either the VA date, please tell your or non VA providers that was VA healthcare team. filled outside the VA. Or, it may be an zzpr-hlg-[id number] (OTC), herbal, dietary supplements or sample medication. ON HOLD An active prescription that will Contact your VA not be filled until pharmacy pharmacy when you need resolves the issue. more of this medication. PARKED An active prescription that will Contact your VA not be filled until the patient pharmacy when you need requests it. this medication. PENDING This prescription order has been If you have been sent to the pharmacy for review instructed to start and is not ready yet. this medication now, contact your VA pharmacy. SUSPENDED An active prescription that is Contact your VA not scheduled to be filled yet. pharmacy if you need You should receive it before this medication now. you run out. ==== /gurwinder/ Jose Fisher OD Fee Basis Fiber Optic Technician Signed: 02/05/2024 14:[address] [facility]
--- OUTSIDE RECORDS SUMMARY | 2024-05-13 13:36 | XMS_ITS | Encounter Summary ---
Author Name [place] Address [address] [place] [address] Care Team Providers Care Batting Machine Operator Insulation Name Role Phone ERNESTO ARBOLEDA Primary Care Provider UnavailTOYIN Escobar Primary Care Provider Unavailab tineo Insurance Providers: [...] PART A August 12, 2008 PART A [id number] Dawson YOUNGER PATIENT MEDICARE (WNR) MEDICARE (M) PART B August 12, 2008 PART B [id number] [phone] Dawson YOUNGER PATIENT MEDICARE (WNR) MEDICARE (M) PART A August 12, 2008 PART A [id number] [place]aws[place] YOUNGER PATIENT MEDICARE (WNR) MEDICARE (M) PART B August 12, 2008 PART B [id number] [facility] [phone] Dawson YOUNGER PATIENT MEDICARE (WNR) MEDICARE (M) PART A August 12, 2008 PART A [id number] Dawson YOUNGER PATIENT MEDICARE (WNR) MEDICARE (M) PART B August 12, 2008 PART B [id number] Dawson YOUNGER PATIENT MEDICARE (WNR) MEDICARE (M) PART B August 12, 2008 PART B [id number] Dawson YOUNGER PATIENT MEDICARE (WNR) MEDICARE (M) PART A August 12, 2008 PART A [id number] [phone] Dawson YOUNGER PATIENT MEDICARE (WNR) MEDICARE (M) PART A August 12, 2008 PART A [id number] 91 Dawson YOUNGER PATIENT MEDICARE (WNR) MEDICARE (M) PART B August 12, 2008 PART B [id number] [phone] Dawson YOUNGER PATIENT MEDICARE PART D (WNR) PRESCRIPT ION PART D Apr 14, 2015 PART D [id number] Dawson YOUNGER PATIENT UNICARE PREFERRED PROVIDER ORGANIZAT ION (PPO) [facility] IN[facility]M N August 12, 2008 [id number] Dawson YOUNGER PATIENT UNICARE MEDICARE SUPPLEMEN [facility] N August 12, 2008 [id number] [id number] Dawson YOUNGER PATIENT UNICARE-G. I.C. MEDICAL EXPENSE (OPT/PROF ) [facility] August 12, 2008 [id number] Dawson YOUNGER PATIENT Selected Encounter This section includes the information on record at VA for the Encounter. Date/Time Encounter Type Encounter Description Reason Pro vider Source Jul 17, 2023 08:00 AM Outpatient Encounter OPHTHALMOLOGY IHE Encounter Template Text not used by VA Plan of Treatment: Future Appointments (+ 6 months) and Future Tests (+/- 45 days) The Plan of Treatment section includes future care activities for the patient from [facility] [place] [facility] This section includes future appointments and future orders which are active, pending or scheduled. Future Appointments This section includes appointments that were scheduled to occur 6 months from the date of the Encounter, up to a maximum of 20 appointments. The data comes from all [place] treatment facilities. Appointment Date/Time Appointment Type Appointme nt Facility Name Aug 07, 2023 03:00 PM AMBULATORY - MEDICINE [facility] August 14, 2023 08:00 AM AMBULATORY - PSYCHIATRY [facility] August 18, 2023 01:00 PM AMBULATORY - NONE [facility] [place] [facility] August 25, 2023 01:00 PM AMBULATORY - NONE [facility] [place] [facility] August 26, 2023 01:45 PM AMBULATORY - MEDICINE [facility] [place] [facility] September 10, 2023 11:00 AM AMBULATORY - NONE [facility] [place] [facility] Sep 23, 2023 09:00 AM AMBULATORY - PSYCHIATRY [facility] [place] [facility] Oct 02, 2023 11:00 AM AMBULATORY - NONE [facility] [place] [facility] Oct 30, 2023 02:30 PM AMBULATORY - MEDICINE [facility] Nov 07, 2023 01:00 PM AMBULATORY - REHAB MEDICIN [facility] Nov 13, 2023 10:00 AM AMBULATORY - PSYCHIATRY [facility] [place] [facility] Nov 13, 2023 02:00 PM AMBULATORY - MEDICINE [facility] [place] [facility] Nov 14, 2023 01:00 PM AMBULATORY - MEDICINE [facility] [place] [facility] Nov 14, 2023 02:00 PM AMBULATORY - MEDICINE [facility] [place] [facility] Dec 01, 2023 08:30 AM AMBULATORY - PSYCHIATRY [facility] [place] [facility] Dec 09, 2023 03:00 PM AMBULATORY - PSYCHIATRY [facility] [place] [facility] Dec 25, 2023 11:00 AM AMBULATORY - PSYCHIATRY [facility] [place] [facility] Jan 01, 2024 01:30 PM AMBULATORY - MEDICINE [facility] [place] [facility] Jan 01, 2024 02:00 PM AMBULATORY [facility] MEDICINE [facility] Jan 02, 2024 02:00 PM AMBULATORY - REHAB MEDICIN E [facility] Lab Results: +/- 30 days of the encounter This section includes the Chemistry and Hematology Lab Results on record with VA for the patient. Radiology Reports and Pathology Reports are provided separately, in subsequent sections. Lab Results This section contains the Chemistry/Hematology Results that were resulted 30 days before or 30 daysafter the date of the Encounter. Date/Time Source Result Type Result - Unit Interpretation Reference Range Comment Jun 26, 2023 08:30 AM [facility] THYROID STIMULATING HORMONE Specimen Type: PLASMA No comment entered. Ordering Provider: KRISTINE MORROW Report Released Date/Time: Jun 17, 2023 02:51 PM Reporting Lab: [facility] [address] [address] [place] [phone] Performing Lab: [place] [id number] Iyer [place] [phone] THYROID STIMULATING HORMONE 3.0800 u[IU]/mL 0.4600-4.70 00 Jun 26, 2023 08:30 AM [facility] PSA WITH REFLEX FREE PSA PANEL Specimen Type: SERUM No comment entered. Ordering Provider: KRISTINE MORROW Report Released Date/Time: Jun 17, 2023 02:51 PM Reporting Lab: [facility] [address] [address] [place] [phone] Performing Lab: [facility] [address] [address] [place] [phone] PROSTATE SPECIFI C ANTIGEN 5.0 ng/mL H 0.0-4.0 FREE PSA PERCENT 10.0 L >26 Jun 26, 2023 08:30 AM [facility] LIPID PANEL (NON-FASTING) Specimen Type: PLASMA No comment entered. Ordering Provider: KRISTINE MORROW Report Released Date/Time: Jun 17, 2023 02:51 PM Reporting Lab: [facility] [address] [address] [place] [facility] [phone] Performing Lab: [facility] [address] [address] [place] [phone] HDL 48 mg/dL >=40 CHOLESTEROL 143 mg/dL 0-199 LDL 84 mg/dL <99 Jun 26, 2023 08:30 AM [facility] URIC ACID Specimen Type: PLASMA No comment entered. Ordering Provider: KRISTINE MORROW Report Released Date/Time: Jun 17, 2023 02:51 PM Reporting Lab: [place] [address] [address] [place] [phone] Performing Lab: [place] [address] [address] [place] [address]87165 URIC ACID 5.3 mg/dL 4-8.5 Jun 26, 2023 08:30 AM [facility] URINE DRUG SCREEN PANEL Specimen Type: URINE No comment entered. Ordering Provider: GAGANDEEP EDWARD Report Released Date/Time: Sep 24, 2022 08:16 AM Reporting Lab: [place] [address] [address] [place] 987165 Performing Lab: [place] [address] [address] [place] [phone] ETHANOL (URINE) < 10 mg/dL 0-10 OPIATES SCREEN < 6 ng/mL 0-300 CANNABINOIDS SCREEN < 10 ng/mL 0-50 AMPHETAMINES/MET H AMPHETAMINE SCREEN < 100 ng/mL 0-1000 BARBITURATES SCREEN 986 ng/mL H 0-200 BENZODIAZEPINES SCREEN 26 ng/mL 0-200 COCAINE SCREEN < 40 ng/mL 0-300 OXYCODONE (URINE) 0 ng/mL 0-100 CREATININE 99.2 mg/dL >20.0 URINE FENTANYL SCREEN Negative ng/mL Jun 26, 2023 08:30 AM [facility] COMPREHENSIVE METABOLIC PANEL Specimen Type: PLASMA No comment entered. Ordering Provider: KRISTINE MORROW Report Released Date/Time: Jun 17, 2023 02:51 PM Reporting Lab: [place] [address] [address] [place] [phone] Performing Lab: [place] [address] [address] [place] [phone] EGFR 56 CHLORIDE 107 mmol/L 98-109 UREA [...] U/L 25-125 Jun 26, 2023 08:30 AM [facility] CBC WITH DIFFERENTIAL Specimen Type: BLOOD No comment entered. Ordering Provider: KRISTINE MORROW Report Released Date/Time: Jun 17, 2023 02:51 PM Reporting Lab: [facility] [address] [address] [place] [facility] [phone] Performing Lab: [facility] [address] [address] [place] [facility] [phone] NUCLEATED RBC/10 0 WBC 0.0 /100{WBCs} 0-0 [...] 10*9/L 0.00-0.08 Jun 26, 2023 08:30 AM [facility] URINALYSIS, COMPLETE Specimen Type: URINE No comment entered. Ordering Provider: KRISTINE MORROW Report Released Date/Time: Jun 17, 2023 02:51 PM Reporting Lab: [facility] [address] [address] [place] [facility] [phone] Performing Lab: [facility] [address] [address] [place] [facility] [phone] BILIRUBIN, URINE NEG Negative KETONES, URINE NEG [...] - Trace LEUKOCYTE ESTERASE, URINE NEG Negative Advance Directives: All historical and current Section Date Range: From patient's date of to the date document was created. This section includes ALL of a patient's completed or amended VA Advance and Rescinded Directives. The entries below indicate that a directive exists for the patient, but an actual copy is not included with this document. The data comes from all [place] facilities. Date Advance Directives Provider Source August 25, 2023 ADVANCE DIRECTIVE MICHELLE LEVINE [facility] Encounter Notes: All associated encounter notes This section contains the clinical notes associated to the Encounter. Date/Time Encounter Note(s) Provider Source Jul 17, 2023 08:13 AM OPHTHALMOLOGY LEONIE ISLAS NOTE: LOCAL TITLE: ESTIMATOR PROJECT MANAGER NOTE STANDARD TITLE: ESTIMATOR PROJECT MANAGER NOTE DATE OF NOTE: JUL 17, 2023@08:13 ENTRY DATE: JUL 17, 2023@08:13:53 AUTHOR: ED HERRERA EXP COSIGNER: URGENCY: STATUS: COMPLETED ESTIMATOR PROJECT MANAGER NOTE Has ADDENDA Patient cancelled the appointment for the scheduled HVF 24-2 III OU - SLOW SPEED, JAY FASTER visual field. PLEASE RESCHEDULE IF VISUAL FIELD IS NEEDED. Referring provider added as additional signer. PLEASE NOTE: Patient also cancelled their same day appointment with Dr.GAMELL FAULKNER; Patient does not have any future eye clinic appointments in [facility]. *TO THE ORDERING PROVIDER: PLEASE NOTE THE TEST DESIRED AND THE STIMULUS SIZE FOR FUTURE TESTS. IF NOT SPECIFIED, THE TEST WILL BE DONE DUPLICATING THE PRIOR TEST.* If additional testing is required, such as OCT, Optos and IOP, please place additional same day order for the [facility]. /gurwinder/ ED HERRERA OPHTHALMOLOGY TECH Signed: 07/17/2023 08:14 Receipt Acknowledged By: 07/18/2023 08:30 /charlotte ANDERSON MD ATTENDING PHYSICIAN, MILL SET UP 07/18/2023 ADDENDUM STATUS: COMPLETED NOTE: spoke with patient's , who said the patient missed the appointemnt because they have moved to [place]. Mr. Younger will [facility] [place]. /gurwinder/ JESE ANDERSON MD ATTENDING PHYSICIAN, MILL SET UP Signed: 07/18/2023 08:34 ED HERRERA [address] [place] [address]
--- OUTSIDE RECORDS SUMMARY | 2024-05-13 13:36 | XMS_ITS | Encounter Summary ---
Author Name [place] Address [address] [place] [address] Care Team Providers Care Product Safety Officer Name Role Phone ERNESTO ARBOLEDA Primary Care [...] PART B August 12, 2008 PART B [id number] Dawson YOUNGER PATIENT MEDICARE (WNR) MEDICARE (M) PART A August 12, 2008 PART A [id number] [phone] Dawson YOUNGER PATIENT MEDICARE (WNR) MEDICARE (M) PART B August 12, 2008 PART B [id number] [phone] Dawson YOUNGER PATIENT MEDICARE (WNR) MEDICARE (M) PART B August 12, 2008 PART B [id number] Dawson YOUNGER PATIENT MEDICARE (WNR) MEDICARE (M) PART A August 12, 2008 PART A [id number] Dawson YOUNGER PATIENT MEDICARE (WNR) MEDICARE (M) PART B August 12, 2008 PART B [id number] [phone] Dawson YOUNGER PATIENT MEDICARE (WNR) MEDICARE (M) PART A August 12, 2008 PART A [id number] 91 Dawson YOUNGER PATIENT MEDICARE (WNR) MEDICARE (M) PART B August 12, 2008 PART B [id number] COUNTS INCLUDE 234 BEDS AT [facility] Dawson YOUNGER PATIENT MEDICARE (WNR) MEDICARE (M) PART A August 12, 2008 PART A [id number] [phone] Dawson YOUNGER PATIENT MEDICARE (WNR) MEDICARE (M) PART A August 12, 2008 PART A [id number] Dawson YOUNGER PATIENT MEDICARE PART D (WNR) PRESCRIPT ION PART D Apr 14, 2015 PART D [id number] 91 Dawson YOUNGER PATIENT UNICARE PREFERRED PROVIDER ORGANIZAT ION (PPO) [facility] INDEM N August 12, 2008 [id number] Dawson YOUNGER PATIENT UNICARE MEDICARE SUPPLEMEN [facility] IN[facility] N August 12, 2008 [id number] Dawson YOUNGER PATIENT UNICARE-G. I.C. MEDICAL EXPENSE (OPT/PROF ) [facility] INDEM N August 12, 2008 [id number] Dawson YOUNGER PATIENT Selected Encounter This section includes the information on record at [place] for the Encounter. Date/Time Encounter Type Encounter Description Reason Pro vider Source May 11, 2024 08:35 AM Outpatient Encounter DENTAL IHE Encounter Template Text not used by VA Plan of Treatment: Future Appointments (+ 6 months) and Future Tests (+/- 45 days) The Plan of Treatment section includes future care activities for the patient from all [place] [facility]. This section includes future appointments and future orders which are active, pending or scheduled. Future Appointments This section includes appointments that were scheduled to occur 6 months from the date of the Encounter, up to a maximum of 20 appointments. The data comes from all [place] treatment facilities. Appointment Date/Time Appointment Type Appointme nt Facility Name May 26, 2024 01:30 PM AMBULATORY - MEDICINE [facility] Javad Iyer [facility] May 26, 2024 03:00 PM AMBULATORY [facility] May 26, 2024 03:01 PM AMBULATORY - PSYCHIATRY [place] [facility] [place] [facility] Jun 22, 2024 01:00 PM [facility] Jun 22, 2024 03:00 PM AMBULATORY - NONE [place] [facility] [place] [facility] Sep 14, 2024 02:30 PM [facility] Social History: Smoking Status (Most current) and Tobacco Use (All prior to encounter date) This section includes the most current, and the historical, smoking and tobacco- related health factors from the VA facility where the Encounter took place. Current Smoking Status This section includes the most current smoking, or tobacco-related health factor, from the [place] facility where the Encounter took place. Date/Time Current Smoking Status Comment Noemy ity Aug 06, 2023 01:17 PM [facility]CO [facility] Advance Directives: All historical and current Section Date Range: From patient's date of to the date document was created. This section includes ALL of a patient's completed or amended [place] Advance and Rescinded Directives. The entries below indicate that a directive exists for the patient, but an actual copy is not included with this document. The data comes from all [place] facilities. Date Advance Directives Provider Source August 25, 2023 ADVANCE DIRECTIVE MICHELLE LEVINE [facility] Encounter Notes: All associated encounter notes This section contains the clinical notes associated to the Encounter. Date/Time Encounter Note(s) Provider Source May 11, 2024 08:35 AM DENTISTRY TELEPHON E ENCOUNTER NOTE: LOCAL TITLE: TELEPHONE NOTE/DENTAL STANDARD TITLE: DENTISTRY TELEPHONE ENCOUNTER NOTE DATE OF NOTE: MAY 11, 2024@08:35 ENTRY DATE: MAY 11, 2024@08:35:54 AUTHOR: KAVYA DUTTON EXP COSIGNER: URGENCY: STATUS: COMPLETED TELEPHONE NOTE/DENTAL Has ADDENDA Spoke with pt' to confirm dental appointment on 05/12/2024 at 9:30 am. /charlotte DUTTON ADVANCED ASSET ADMINISTRATOR Signed: 05/11/2024 08:37 05/12/2024 ADDENDUM STATUS: COMPLETED Patient called office to cancel dental appt on 05/12/2024, states patient has been sick does not know when they will reschedule. RTC PID 05/12/2024 has been dispositioned due to pt cancelling. /charlotte DUTTON ADVANCED ASSET ADMINISTRATOR Signed: 05/12/2024 11:43 [address] [facility]
--- OUTSIDE RECORDS SUMMARY | 2024-05-13 13:37 | XMS_ITS ---
Author Name [place] Address [address] [place] [address] Care Team Providers Care Junior Accountant Name Role Phone ERNESTO ARBOLEDA Primary Care [...] PART B August 12, 2008 PART B [id number] Dawson YOUNGER PATIENT MEDICARE (WNR) MEDICARE (M) PART A August 12, 2008 PART A [id number] Dawson YOUNGER PATIENT MEDICARE (WNR) MEDICARE (M) PART B August 12, 2008 PART B [id number] Dawson YOUNGER PATIENT MEDICARE (WNR) MEDICARE (M) PART B August 12, 2008 PART B [id number] Dawson YOUNGER PATIENT MEDICARE (WNR) MEDICARE (M) PART A August 12, 2008 PART A [id number] Dawson YOUNGER PATIENT MEDICARE (WNR) MEDICARE (M) PART B August 12, 2008 PART B [id number] Dawson YOUNGER PATIENT MEDICARE (WNR) MEDICARE (M) PART A August 12, 2008 PART A [id number] [phone] Dawson YOUNGER PATIENT MEDICARE (WNR) MEDICARE (M) PART B August 12, 2008 PART B [id number] 91 Dawson YOUNGER PATIENT MEDICARE (WNR) MEDICARE (M) PART A August 12, 2008 PART A [id number] Dawson YOUNGER PATIENT MEDICARE (WNR) MEDICARE (M) PART A August 12, 2008 PART A [id number] Dawson YOUNGER PATIENT MEDICARE PART D (WNR) PRESCRIPT ION PART D Apr 14, 2015 PART D [id number] Dawson YOUNGER PATIENT UNICARE PREFERRED PROVIDER ORGANIZAT ION (PPO) [facility] IN[facility] N August 12, 2008 [id number] Dawson YOUNGER PATIENT UNICARE MEDICARE SUPPLEMEN FARHAD [facility] INDEM N August 12, 2008 [id number] Dawson YOUNGER PATIENT UNICARE-G. I.C. MEDICAL EXPENSE (OPT/PROF ) [facility] IN[facility] N August 12, 2008 [id number] [phone] Dawson YOUNGER PATIENT Selected Encounter This section includes the information on record at [place] for the Encounter. Date/Time Encounter Type Encounter Description Reason Provider Source May 11, 2024 01:30 PM HEARING AID FITTING/CHECKING AUDIOLOGY ICD-10-CM Z46.1 Encounter for fitting and adjustment of hearing aid DYLLAN GUY [facility] Encounter Template Text not used by [place] Assessments - Encounter Diagnoses This section includes the primary and secondary diagnoses documented for the Encounter. Date/Time Primary/Secondary Diagnosis Diagnosis Name Provider Source May 11, 2024 02:07 PM PRIMARY Encounter for fitting and adjustment of hearing aid DYLLAN GUY [place] [facility] May 11, 2024 02:07 PM SECONDARY Sensorineural hearing loss, bilateral [facility]AN [facility] Plan of Treatment: Future Appointments (+ 6 months) and Future Tests (+/- 45 days) The Plan of Treatment section includes future care activities for the patient from all [place] treatmentfacilities. This section includes future appointments and future orders which are active, pending or scheduled. Future Appointments This section includes appointments that were scheduled to occur 6 months from the date of the Encounter, up to a maximum of 20 appointments. The data comes from all [place] treatment facilities. Appointment Date/Time Appointment Type Appointme nt Facility Name May 26, 2024 01:30 PM AMBULATORY - MEDICINE [place] [facility] May 26, 2024 03:00 PM AMBULATORY - PSYCHIATRY [place] [facility] May 26, 2024 03:01 PM AMBULATORY - PSYCHIATRY [place] [facility] Jun 22, 2024 01:00 PM AMBULATORY - MEDICINE [facility] Jun 22, 2024 03:00 PM AMBULATORY - NONE [place] [facility] Sep 14, 2024 02:30 PM AMBULATORY - MEDICINE [place] [facility] Social History: Smoking Status (Most current) and Tobacco Use (All prior to encounter date) This section includes the most current, and the historical, smoking and tobacco- related health factors from the [place] facility where the Encounter took place. Current Smoking Status This section includes the most current smoking, or tobacco-related health factor, from the [place] facility where the Encounter took place. Date/Time Current Smoking Status Comment Noemy esquivel Aug 06, 2023 01:17 PM VA-TOBACCO NEVER USED [facility] [place] [facility] Advance Directives: All historical and current Section Date Range: From patient's date of to the date document was created. This section includes ALL of a patient's completed or amended VA Advance and Rescinded Directives. The entries below indicate that a directive exists for the patient, but an actual copy is not included with this document. The data comes from all [place] facilities. Date Advance Directives Provider Source August 25, 2023 ADVANCE DIRECTIVE MICHELLE LEVINE [facility] Encounter Notes: All associated encounter notes This section contains the clinical notes associated to the Encounter. Date/Time Encounter Note(s) Provider Source May 11, 2024 02:03 PM AUDIOLOGY E & M NO TE: LOCAL TITLE: AUDIOLOGY CLINIC STANDARD TITLE: AUDIOLOGY E & M NOTE DATE OF NOTE: MAY 11, 2024@14:03 ENTRY DATE: MAY 11, 2024@14:04:03 AUTHOR: DYLLAN GUY COSIGNER: URGENCY: STATUS: COMPLETED was seen May 11, 2024 to pharmacy picking technician L&D remote control for his [email or web address] aids. [employer] and reports aids are not working at all and they brought the TV system but noted it was that aids paired to his cell phone causing issue with interference as he did not know how to change the audio input for calls. Both aids checked, wax guards plugged. Changed wax guards and re-instructed on daily cleaning of aids and changing of wax guards as needed. Biologic check good after. Replacement remote paired to new aids. Both aids unpaired from cell phone. Wax guards will be mailed to [employer]. [employer] and know how to use the [employer] support line for pairing aids to TV system and will contact us with any future problems/concerns. Patient Education Education provided on the following topics: See above Education provided to: P, F Response to Education: JEF Hudson Patient P Family F Significant Other SO Verbalizes Understanding VU Returns Demonstration RD Performs Independently PI Lacks Comprehension LC Refused Education RE Not Applicable NA /gurwinder/ DYLLAN Grey, CCC-A CHIEF, AUDIOLOGY/VOLUNTEER SERVICES SUPERVISOR Signed: 05/11/2024 14:07 [facility]LLAN GUY [facility]
--- OUTSIDE RECORDS SUMMARY | 2024-05-13 13:37 | XMS_ITS ---
Author Name [facility] [facility] [place] [facility] [place] Address [address] [place] [address] Care Team Providers Care Individualized Education Plan Aide Name Role Phone ERNESTO ARBOLEDA Primary Care [...] PART A August 12, 2008 PART A [id number] Dawson YOUNGER PATIENT MEDICARE (WNR) MEDICARE (M) PART B August 12, 2008 PART B [id number] Dawson YOUNGER PATIENT MEDICARE (WNR) MEDICARE (M) PART A August 12, 2008 PART A [id number] Dawson YOUNGER PATIENT MEDICARE (WNR) MEDICARE (M) PART B August 12, 2008 PART B [id number] Dawson YOUNGER PATIENT MEDICARE (WNR) MEDICARE (M) PART A August 12, 2008 PART A [id number] Dawson YOUNGER PATIENT MEDICARE (WNR) MEDICARE (M) PART B August 12, 2008 PART B [id number] Dawson YOUNGER PATIENT MEDICARE (WNR) MEDICARE (M) PART B August 12, 2008 PART B [id number] Dawson YOUNGER PATIENT MEDICARE (WNR) MEDICARE (M) PART A August 12, 2008 PART A [id number] Dawson YOUNGER PATIENT MEDICARE (WNR) MEDICARE (M) PART A August 12, 2008 PART A [id number] Dawson YOUNGER PATIENT MEDICARE (WNR) MEDICARE (M) PART B August 12, 2008 PART B [id number] Dawson YOUNGER PATIENT MEDICARE PART D (WNR) PRESCRIPT ION PART D Apr 14, 2015 PART D [id number] Dawson YOUNGER PATIENT UNICARE PREFERRED PROVIDER ORGANIZAT ION (PPO) [facility] N August 12, 2008 [id number] Dawson YOUNGER PATIENT [facility] MEDICARE SUPPLEMEN [facility] August 12, 2008 [id number] [phone] Dawson YOUNGER PATIENT UNICARE-G. I.C. MEDICAL EXPENSE (OPT/PROF ) [facility] August 12, 2008 [id number] [phone] Dawson YOUNGER PATIENT Selected Encounter This section includes the information on record at [place] for the Encounter. Date/Time Encounter Type Encounter Description Reason Provider Source Feb 05, 2024 11:00 AM CONFORMITY EVALUATION AUDIOLOGY ICD-10-CM Z46.1 Encounter for fitting and adjustment of hearing aid CAMINITI,KEVIN E IHE Encounter Template Text not used by [place] Assessments - Encounter Diagnoses This section includes the primary and secondary diagnoses documented for the Encounter. Date/Time Primary/Secondary Diagnosis Diagnosis Name Provider Source Feb 05, 2024 11:55 AM PRIMARY Encounter for fitting and adjustment of hearing aid JEFFYKEVIN Javad [place] [facility] [place] [facility] Feb 05, 2024 11:55 AM SECONDARY Sensorineural hearing loss, bilateral JEFFYKEVIN E [place] [facility] [place] [facility] Plan of Treatment: Future Appointments (+ 6 months) and Future Tests (+/- 45 days) The Plan of Treatment section includes future care activities for the patient from all [place] treatmentfacritical access hospitalities. This section includes future appointments and future orders which are active, pending or scheduled. Future Appointments This section includes appointments that were scheduled to occur 6 months from the date of the Encounter, up to a maximum of 20 appointments. The data comes from all [place] treatment facilities. Appointment Date/Time Appointment Type Appointme nt Facility Name Feb 26, 2024 01:00 PM AMBULATORY - MEDICINE [facility] Apr 15, 2024 11:00 AM [facility]UL[facility] [place] [facility] Apr 20, 2024 02:00 PM AM[facility] MEDICINE [facility] [place] [facility] Apr 22, 2024 10:00 AM AM[facility]ULATORY - MEDICINE [facility] [place] [facility] Apr 28, 2024 01:00 PM AMBULATORY - PSYCHIATRY [facility] [place] [facility] Apr 28, 2024 01:01 PM AMBULATORY - PSYCHIATRY [facility] [place] [facility] May 11, 2024 01:30 PM AMBULATORY - REHAB MEDICIN E [facility] [place] [facility] May 26, 2024 01:30 PM AMBULATORY - MEDICINE ANA [facility] May 26, 2024 03:00 PM AMBULATORY - PSYCHIATRY [facility] [place] [facility] May 26, 2024 03:01 PM AMBULATORY - PSYCHIATRY [facility] [place] [facility] Jun 22, 2024 01:00 PM AMBULATORY - MEDICINE [facility] Jun 22, 2024 03:00 PM AMBULATORY - NONE [facility] [place] [facility] Active, Pending, and Scheduled Orders This section includes a listing of several types of active, pending, and scheduled orders, including clinic medications orders, diagnostic test orders, procedure orders and consult orders; where the start date of the order is 45 days before the date of the Encounter or 45 days after the date of theEncounter. The data comes from all [place] treatment facilities. Test Date/Time Test Type Test Details Facility Name Feb 26, 2024 12:50 PM Consult Order COMMUNITY [facility]ARE-MRI Cons [facility] Social History: Smoking Status (Most current) and Tobacco Use (All prior to encounter date) This section includes the most current, and the historical, smoking and tobacco- related health factors from the [place] facility where the Encounter took place. Current Smoking Status This section includes the most current smoking, or tobacco-related health factor, from the [place] facility where the Encounter took place. Date/Time Current Smoking Status Comment Facil ity Aug 06, 2023 01:17 PM VA-TOBACCO NEVER USED [place] [facility] Advance Directives: All historical and current Section Date Range: From patient's date of to the date document was created. This section includes ALL of a patient's completed or amended [place] Advance and Rescinded Directives. The entries below indicate that a directive exists for the patient, but an actual copy is not included with this document. The data comes from all [place] facilities. Date Advance Directives Provider Source August 25, 2023 ADVANCE DIRECTIVE MICHELLE LEVINE [facility] Encounter Notes: All associated encounter notes This section contains the clinical notes associated to the Encounter. Date/Time Encounter Note(s) Provider Source Feb 05, 2024 07:54 AM AUDIOLOGY E & M NO TE: [facility] TITLE: AUDIOLOGY CLINIC STANDARD TITLE: AUDIOLOGY E & M NOTE DATE OF NOTE: FEB 05, 2024@07:54 ENTRY DATE: FEB 05, 2024@07:54:32 AUTHOR: KEVIN BARDALES COSIGNER: URGENCY: STATUS: COMPLETED Diagnosis: bilateral sensorineural hearing loss Hearing Aid Fitting: SUBJECTIVE (S): The was seen for hearing aid fitting and issuance. S/He had previously been evaluated and found to exhibit significant hearing loss for which amplification was recommended. How does the patient/client best learn? verbal instruction, demonstration Does the patient/client have any cultural and uatsdin beliefs, emotional barriers, physical or cognitive limitations, and communication barriers which may impact his/her ability to learn? no Desire and motivation to learn? Good OBJECTIVE (O): Physical fit of earmolds/receivers and domes/hearing aids was good. [place] verified comfort. Verification of an appropriate acoustic response was obtained using Real Ear measurements (speech mapping) and NAL- NL2 targets. The reported good subjective benefit as well. Feedback food and beverage assistant manager was run. Hearing aids were found to be meeting targets adequately and MPO was not exceeding estimated UCL. Settings stored in AIDA. ASSESSMENT (A): The following device(s) was/were issued: Make: Zadby Model: Farida AI LEELA RT; remote, remote aruna, TV streamer Serial Numbers: [id number] Battery size: RECHARGEABLE Trial Period ends: 07-05-24 Domes/wax guards, etc.: hear clear Earmold Information: clear silicone canal lock Project Development Manager size/power: 3P Program Settings (VC, Programs, Buttons): buttons disabled Fitting Formula: NAL-NL2 Remote programming: capable Restored settings to the left Evolv ITC with the fitting materials. Discussed CI candidacy and gave information packet today. Fine tuned for feedback/static sounds. Counseling was completed today throughout todays appointment using a standardized curriculum that includes but is not limited to; realistic expectations with amplification in adverse listening environments, acclimatization to own voice and environmental sounds (following real-ear measurements), the importance of consistent use of amplification, proper insertion/removal, care and maintenance (including wax guards/domes if applicable), signal and alerts of devices, and charging/batteries. The was provided the opportunity to practice in office and reports confidence/understanding in all items reviewed. was given written reference materials today. The [place] was informed of and agreed to [place] policy on hearing aid issuance: Users are responsible for the maintenance and security of their devices. Determination of need to replace a hearing aid is made by the [place] carbon brusher assembler. Hearing aids will not be replaced in cases of neglect, abuse, or excessive loss. Items issued are for personal use only. Prognosis for successful hearing aid use is good. PLAN (P): 1. Contact clinic with any problems/concerns. 2. The International Outcome Inventory-Hearing Aids (IOI-NULL) will be mailed to the in four weeks. He/she was asked to mail back to clinic after completion. Patient Education Education provided on the following topics: hearing aid management Education provided to: P, F Response to Education: JEF, ELSA, PI [place] Patient P Family F Significant Other SO Verbalizes Understanding VU Returns Demonstration RD Performs Independently PI Lacks Comprehension LC Refused Education RE Not Applicable NA /gurwinder/ Kelley JI, CCC-A STAFF MANAGER UNDERWRITING Signed: 02/05/2024 11:57 KEVIN BARDALES [facility] [place] [facility]
--- OUTSIDE RECORDS SUMMARY | 2024-05-13 13:37 | XMS_ITS | Encounter Summary ---
Author Name [facility] [place] [facility] [place] Address [address] [place] [address] Care Team Providers Care Superintendent [employer] Name Role Phone ERNESTO ARBOLEDA Primary Care [...] PART A August 12, 2008 PART A [id number] [phone] Dawson YOUNGER PATIENT MEDICARE (WNR) MEDICARE (M) PART B August 12, 2008 PART B [id number] [phone] Dawson YOUNGER PATIENT MEDICARE (WNR) MEDICARE (M) PART A August 12, 2008 PART A [id number] Dawson YOUNGER PATIENT MEDICARE (WNR) MEDICARE (M) PART B August 12, 2008 PART B [id number] [facility] [phone] Dawson YOUNGER PATIENT MEDICARE (WNR) MEDICARE (M) PART A August 12, 2008 PART A [id number] [phone] Dawson YOUNGER PATIENT MEDICARE (WNR) MEDICARE (M) PART B August 12, 2008 PART B [id number] Dawson YOUNGER PATIENT MEDICARE (WNR) MEDICARE (M) PART B August 12, 2008 PART B [id number] [facility] [phone] Dawson YOUNGER PATIENT MEDICARE (WNR) MEDICARE (M) PART A August 12, 2008 PART A [id number] [facility] Dawson YOUNGER PATIENT MEDICARE (WNR) MEDICARE (M) PART B August 12, 2008 PART B [id number] Dawson YOUNGER PATIENT MEDICARE (WNR) MEDICARE (M) PART A August 12, 2008 PART A [id number] [facility] Dawson YOUNGER PATIENT MEDICARE PART D (WNR) PRESCRIPT ION PART D Apr 14, 2015 PART D [id number] Dawson YOUNGER PATIENT UNICARE PREFERRED PROVIDER ORGANIZAT ION (PPO) [facility] IN[facility] N August 12, 2008 [id number] Dawson YOUNGER PATIENT [facility] MEDICARE SUPPLEMEN FARHAD [facility] N August 12, 2008 [id number] Dawson YOUNGER PATIENT UNICARE-G. I.C. MEDICAL EXPENSE (OPT/PROF ) [facility] N August 12, 2008 [id number] [phone] Dawson YOUNGER PATIENT Selected Encounter This section includes the information on record at [place] for the Encounter. 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 Date/Time Primary/Secondary Diagnosis Diagnosis Name Provider Source Nov 14, 2023 02:35 PM PRIMARY Capslr glaucoma w/pseudxf lens, right eye, moderate stage OSHINSKIE,CELENA ROYER J [facility] Nov 14, 2023 02:35 PM SECONDARY Capslr glaucoma w/pseudxf lens, left eye, moderate stage OSHINSKIE,CELENA ROYER J [facility] Plan of Treatment: Future Appointments (+ 6 months) and Future Tests (+/- 45 days) The Plan of Treatment section includes future care activities for the patient from all VA treatmentfacilities. This section includes future appointments and future orders which are active, pending or scheduled. Future Appointments This section includes appointments that were scheduled to occur 6 months from the date of the Encounter, up to a maximum of 20 appointments. The data comes from all [place] treatment facilities. Appointment Date/Time Appointment Type Appointme nt Facility Name Dec 01, 2023 08:30 AM AMBULATORY - PSYCHIATRY [facility] Dec 09, 2023 03:00 PM AMBULATORY - PSYCHIATRY [facility] Dec 25, 2023 11:00 AM AMBULATORY - PSYCHIATRY [facility] Jan 01, 2024 01:30 PM AMBULATORY - MEDICINE [facility] Jan 01, 2024 02:00 PM AMBULATORY - MEDICINE [facility] Jan 02, 2024 02:00 PM AMBULATORY - REHAB MEDICIN E [facility] Jan 21, 2024 02:30 PM AMBULATORY - PSYCHIATRY [facility] Jan 21, 2024 02:31 PM AMBULATORY - PSYCHIATRY [facility] Feb 05, 2024 11:00 AM AMBULATORY - REHAB MEDICIN E [facility] Feb 05, 2024 01:30 PM AMBULATORY - MEDICINE [facility] Feb 26, 2024 01:00 PM [facility] Apr 15, 2024 11:00 AM AMBULATORY - REHAB MEDICIN E [facility] Apr 20, 2024 02:00 PM AMBULATORY - MEDICINE [facility] Apr 22, 2024 10:00 AM AMBULATORY - MEDICINE [facility] Apr 28, 2024 01:00 PM AMBULATORY - PSYCHIATRY [facility] Apr 28, 2024 01:01 PM AMBULATORY - PSYCHIATRY [place] [facility] May 11, 2024 01:30 PM AMBULATORY - [facility] Active, Pending, and Scheduled Orders This [...] AM Consult Order COMMUNITY CARE-DENTAL GENERAL Cons Printing Sales Representative's Choice [facility] Dec 12, 2023 11:03 AM Consult Order COMMUNITY CARE-SLEEP MEDICINE Cons Printing Sales Representative's Choice [facility] Lab Results: +/- 30 days of the encounter This section includes the Chemistry and Hematology Lab Results on record with [place] for the patient. Radiology Reports and Pathology Reports are provided separately, in subsequent sections. Lab Results This section contains the Chemistry/Hematology Results that were resulted 30 days before or 30 daysafter the date of the Encounter. Date/Time Source Result Type Result - Unit Interpretation Reference Range Comment Nov 07, 2023 01:19 PM [facility] MICROALBUMIN CREATININE RATIO PANEL Spe cimen Type: URINE No comment entered. Ordering Provider: ERNESTO ARBOLEDA Report Released Date/Time: August 17, 2023 01:25 PM Reporting Lab: [address] [address] Performing Lab: [address] [address] MICROALBUMIN/C REATININE RATIO canc mg/g 0-29.9 MICROALBUMIN,Q UANTITATIVE < 0.5 mg/dL RR UNAVAIL CREATININE URINE 128.85 mg/dL Nov 07, 2023 01:19 PM [facility] URINALYSIS Specimen Type: URINE Comment: If Glucose = >500 and Ketones are positive, please alert the Physician. Ordering Provider: ERNESTO ARBOLEDA Report Released Date/Time: August 17, 2023 01:25 PM Reporting Lab: [address] [address] Performing Lab: [address] [address] UA COLOR Yellow Yellow UA APPEARANCE Turbid Clear UA GLUCOSE NEGATIVE mg/dL Negative UA KETONES NEGATIVE mg/dL Negative UA BLOOD NEGATIVE mg/dL Negative UA PROTEIN NEGATIVE mg/dL Negative UA NITRITE NEGATIVE mg/dL Negative UA BILIRUBIN NEGATIVE mg/dL Negative UA SPECIFIC GRAVITY 1.024 H 1.016-1.022 UA pH 6.0 5.0-9.0 UA UROBILINOGEN <2.0 mg/dL <2.0 UA LEUKOCYTE NEGATIVE Negative Nov 07, 2023 01:19 PM [facility] LIVER FUNCTION Specimen Type: SERUM No comment entered. Ordering Provider: ERNESTO ARBOLEDA Report Released Date/Time: August 17, 2023 01:25 PM Reporting Lab: [address] [address] Performing Lab: [address] [address] PROTEIN,TOTAL 6.4 g/dL 6.0-8.3 ALBUMIN 3.3 g/dL L 3.5-5.0 ALKALINE PHOSPHATASE 88 U/L 40-150 AST 16 U/L 5-34 ALT 24 U/L BILIRUBIN, TOTAL 0.4 mg/dL 0.2-1.2 Nov 07, 2023 01:19 PM [facility] LIPID PANEL, NON FASTING Specimen Type: SERUM No comment entered. Ordering Provider: ERNESTO ARBOLEDA Report Released Date/Time: August 17, 2023 01:25 PM Reporting Lab: [address] [address] Performing Lab: [facility] [address] [facility] [address] CHOLESTEROL 134 mg/dL TRIGLYCERIDE 235 mg/dL H 0-150 LDL calculated 41 mg/dL 0-129 CHOL/HDL 2.9 HDL CHOLESTEROL 46 mg/dL 40-60 Nov 07, 2023 01:19 PM [facility] CALCIUM Specimen Type: SERUM No comment entered. Ordering Provider: ERNESTO ARBOLEDA Report Released Date/Time: August 17, 2023 01:25 PM Reporting Lab: [facility] [address] [address] Performing Lab: [address] [address] CALCIUM 8.8 mg/dL 8.5-10.2 Nov 07, 2023 01:19 PM [facility] HEMOGLOBIN A1C PANEL Specimen Type: BLOOD Comment: Values obtained from A1C measurements can vary. For atypical A1C assays, a reported value of 7.0 could actually be between 6.72 and 7.28 if measured by a reference method. A reported value of 9.0 could actually be between 8.73 and 9.27. Ref: http://www.ng sp.org/CAPdat a.asp Ordering Provider: ERNESTO ARBOLEDA Report Released Date/Time: August 17, 2023 01:25 PM Reporting Lab: [facility] [address] [address] Performing Lab: [facility] [address] [address] HEMOGLOBIN A1C 5.9 H 4.0-5.6 Nov 07, 2023 01:19 PM [facility] TSH Specimen Type: SERUM No comment entered. Ordering Provider: ERNESTO ARBOLEDA Report Released Date/Time: August 17, 2023 01:25 PM Reporting Lab: [facility] [address] [address] Performing Lab: [facility] [address] [address] TSH 1.16 u[IU]/mL 0.35-5.00 Nov 07, 2023 01:19 PM [facility] MAGNESIUM Specimen Type: SERUM No comment entered. Ordering Provider: ERNESTO ARBOLEDA Report Released Date/Time: August 17, 2023 01:25 PM Reporting [facility]: [facility] [address] [address] Performing Lab: [facility] [address] [address] MAGNESIUM 1.9 mg/dL 1.6-2.6 Nov 07, 2023 01:19 PM [facility] VITAMIN D (25-OH) Specimen Type: SERUM No comment entered. Ordering Provider: ERNESTO ARBOLEDA Report Released Date/Time: August 17, 2023 01:25 PM Reporting Lab: [address] [address] Performing Lab: [address] [address] VITAMIN D (25-OH) 28 ng/mL 20-50 Nov 07, 2023 01:19 PM [facility] VITAMIN B12 Specimen Type: SERUM No comment entered. Ordering Provider: ERNESTO ARBOLEDA Report Released Date/Time: August 17, 2023 01:25 PM Reporting Lab: [address] [address] Performing Lab: [address] [address] VITAMIN B12 424 pg/mL 200-900 Nov 07, 2023 01:19 PM [facility] PT & INR (PROTIME) Specimen Type: PLASMA No comment entered. Ordering Provider: ERNESTO ARBOLEDA Report Released Date/Time: August 17, 2023 01:25 PM Reporting Lab: [address] [address] Performing Lab: [address] [address] INR 1.1 PROTIME 11.9 s 10.0-13.1 Nov 07, 2023 01:19 PM [facility] BASIC METABOLIC PANEL (non-fasting) Spe cimen Type: SERUM No comment entered. Ordering Provider: ERNESTO ARBOLEDA Report Released Date/Time: August 17, 2023 01:25 PM Reporting Lab: [address] [address] Performing Lab: [address] [address] UREA NITROGEN 19 mg/dL 7-25 GLUCOSE 99 mg/dL 65-100 SODIUM 139 mmol/L 135-145 POTASSIUM 4.3 mmol/L 3.5-5.0 CHLORIDE 105 mmol/L 100-110 CO2 29 meq/L 20-30 CREATININE, Serum 1.05 mg/dL 0.50-1.40 eGFR(CKD-EPI 2020) 72 mL/min >60 Nov 07, 2023 01:19 PM [facility] CBC AND DIFF (AUTO) Specimen Type: BLOOD No comment entered. Ordering Provider: ERNESTO ARBOLEDA Report Released Date/Time: August 17, 2023 01:25 PM Reporting Lab: [address] [address] Performing Lab: [address] [address] WBC 6.90 10*3/uL 4.50-11.00 RBC 4.40 10*6/uL 4.23-5.66 HGB 13.7 g/dL 12.8-17 HCT 40.4 39.2-50.4 MCV 91.8 fL 82-99 MCHC 33.9 g/dL 30.8-35.1 PLT 231 10*3/uL 140-360 RDW-CV 13.0 12.0-16.0 MONO, ABS 0.54 10*3/uL 0.30-1.10 MCH 31.1 pg 26.2-32.6 NEUT % 62.5 43.7-75.8 LYMPH % 26.4 14.0-42.3 MONO % 7.8 5.1-13.7 EOS % 2.6 0.4-6.8 BASO % 0.4 0.1-2.0 NEUT, ABS 4.31 10*3/uL 2.20-7.60 LYMPH, ABS 1.82 10*3/uL 1.00-3.20 EOS, ABS 0.18 10*3/uL 0.03-0.44 BASO, ABS 0.03 10*3/uL 0.01-0.13 IMMATURE GRAN % 0.3 0.0-0.7 IMMATURE GRAN, ABS 0.02 10*3/uL 0.00-0.06 NRBC % 0.0 0.0-0.0 NRBC, ABS 0.00 10*3/uL 0.00-0.00 Nov 07, 2023 01:19 PM [facility] MICROSCOPIC AUTOMATED, URINE Specimen Type: URINE Comment: If Glucose = >500 and Ketones are positive, please alert the Physician. Ordering Provider: ERNESTO ARBOLEDA Report Released Date/Time: August 17, 2023 01:25 PM Reporting Lab: [facility] [address] [facility] [address] Performing Lab: [facility] [address] [facility] [address] UA WBC 0-5 /[HPF] 0-5 UA RBC 0-2 /[HPF] 0-3 UA AMORPHOUS CRYSTALS FEW /[HPF] Not Established Social History: Smoking Status (Most current) and Tobacco Use (All prior to encounter date) This section includes the most current, and the historical, smoking and tobacco- related health factors from the [place] facility where the Encounter took place. Current Smoking Status This section includes the most current smoking, or tobacco-related health factor, from the [place] facility where the Encounter took place. Date/Time Current Smoking Status Comment Facil lisay Aug 06, 2023 01:17 PM VA-TOBACCO NEVER USED [facility] Advance Directives: All historical and [...] August 25, 2023 ADVANCE DIRECTIVE MICHELLE LEVINE [facility] Encounter Notes: All associated encounter notes This section contains the clinical notes associated to the Encounter. Date/Time Encounter Note(s) Provider Source Nov 14, 2023 01:59 PM OPTOMETRY CONSULT: LOCAL TITLE: CONSULT REPORT/OPTOMETRY OCT STANDARD TITLE: OPTOMETRY CONSULT DATE OF NOTE: NOV 14, 2023@13:59 ENTRY DATE: NOV 14, 2023@13:59:37 AUTHOR: JOSE FISHER EXP COSIGNER: URGENCY: STATUS: COMPLETED OCT of optic nerve head ordered: glaucoma suspect, low risk BASELINE OCT here had Spectralis OCT at prior [facility] so cannot compare fairly results quality OD 9/10 OS 10/10 aver thickness OD 73 OS 72 sectors OD yellow SN and ST OS yellow 2 slices temporally aver c/d OD 0.8 OS 0.73 disc size is asymmetric and OD large OD 2.39 OS 1.67 RNFL appear thinner OD superotemporally 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
--- OUTSIDE RECORDS SUMMARY | 2024-05-13 13:37 | XMS_ITS | Encounter Summary ---
Author Name [facility] [place] Address [address] [place] [address] Care Team Providers Care Visualizer Name Role Phone ERNESTO ARBOLEDA Primary Care [...] PART A August 12, 2008 PART A [id number] [phone] Dawson YOUNGER PATIENT MEDICARE (WNR) MEDICARE (M) PART B August 12, 2008 PART B [id number] Dawson YOUNGER PATIENT MEDICARE (WNR) MEDICARE (M) PART A August 12, 2008 PART A [id number] Dawson YOUNGER PATIENT MEDICARE (WNR) MEDICARE (M) PART B August 12, 2008 PART B [id number] [phone] Dawson YOUNGER PATIENT MEDICARE (WNR) MEDICARE (M) PART A August 12, 2008 PART A [id number] Dawson YOUNGER PATIENT MEDICARE (WNR) MEDICARE (M) PART B August 12, 2008 PART B [id number] Dawson YOUNGER PATIENT MEDICARE (WNR) MEDICARE (M) PART B August 12, 2008 PART B [id number] Dawson YOUNGER PATIENT MEDICARE (WNR) MEDICARE (M) PART A August 12, 2008 PART A [id number] [phone] Dawson YOUNGER PATIENT MEDICARE (WNR) MEDICARE (M) PART B August 12, 2008 PART B [id number] Dawson YOUNGER PATIENT MEDICARE (WNR) MEDICARE (M) PART A August 12, 2008 PART A [id number] Dawson YOUNGER PATIENT MEDICARE PART D (WNR) PRESCRIPT ION PART D Apr 14, 2015 PART D [id number] [phone] Dawson YOUNGER PATIENT UNICARE PREFERRED PROVIDER ORGANIZAT ION (PPO) [facility] N August 12, 2008 [id number] [phone] Dawson YOUNGER PATIENT UNICARE MEDICARE SUPPLEMEN FARHAD [facility] N August 12, 2008 [id number] Dawson YOUNGER PATIENT UNICARE-G. I.C. MEDICAL EXPENSE (OPT/PROF ) [facility] N August 12, 2008 [id number] [phone] Dawson YOUNGER PATIENT Selected Encounter This section includes the information on record at [place] for the Encounter. Date/Time Encounter Type Encounter Description Reason Pro vider Source Apr 20, 2024 12:00 AM Outpatient Encounter COMMUNITY CARE CONSULT IHE Encounter Template Text not used by VA Plan of Treatment: Future Appointments (+ 6 months) and Future Tests (+/- 45 days) The Plan of Treatment section includes future care activities for the patient from all [place] [facility]. This section includes future appointments and future orders which are active, pending or scheduled. Future Appointments This section includes appointments that were scheduled to occur 6 months from the date of the Encounter, up to a maximum of 20 appointments. The data comes from all [place] treatment facilities. Appointment Date/Time Appointment Type Appointme nt Facility Name Apr 22, 2024 10:00 AM AM[place]ULATORY [place] [facility] Apr 28, 2024 01:00 PM AMBULATORY [place]AT[place] [facility] Apr 28, 2024 01:01 PM AM[place]UL[place]ORY [place] [facility] [facility] May 11, 2024 01:30 PM AMBULATORY - [place] [facility] May 26, 2024 01:30 PM AMBULATORY - MEDICINE [facility] May 26, 2024 03:00 PM AMBULATORY [place] [facility] May 26, 2024 03:01 PM AMBUL[place]ORY [place] [facility] Jun 22, 2024 01:00 PM [facility]ULATORY - [facility]ICINE [facility] Jun 22, 2024 03:00 PM AMBULATORY - NONE [place] [facility] Sep 14, 2024 02:30 PM AMBULATORY - MEDICINE [facility] Social History: Smoking Status (Most current) [...] 06, 2023 01:17 PM [facility]CO [facility] Advance Directives: All historical and current [...] August 25, 2023 ADVANCE DIRECTIVE MICHELLE LEVINE [facility] Encounter Notes: All associated encounter notes This section contains the clinical notes associated to the Encounter. Date/Time Encounter Note(s) Provider Source Apr 20, 2024 12:00 AM NONVA CONSULT: LOCAL TITLE: COMMUNITY CARE-CONSULT RESULT NOTE STANDARD TITLE: NONVA CONSULT DATE OF NOTE: APR 20, 2024 ENTRY DATE: MAY 11, 2024@14:34:12 AUTHOR: JESENIA ROGEL EXP COSIGNER: URGENCY: STATUS: COMPLETED VistA Imaging - Scanned Document SCANNED DOCUMENT SIGNATURE NOT REQUIRED Electronically Filed: 05/11/2024 by: JESENIA ROGEL MEDICAL LABORATORY TECHNICIAN JESENIA ROGEL [place] [facility]
--- OUTSIDE RECORDS SUMMARY | 2024-05-13 13:37 | XMS_ITS | Clinical Summary ---
Author Organization [facility] Address [address] [place] [address] Phone Care Team Providers Care Electronic Health Records Specialist Name Role Phone & Sports Medicine, [facility] Unavailable + [phone] Kenney PARK MD, Christ Hernandez Unavailable [phone] Leti CUELLO, Maryan Rose Unavailable [phone] Junaid CUELLO, Bora Unavailable [phone] Andres CUELLO, Narendra Primary Care Provider [phone] Deni Bernabe MD Unavailable [phone] Gloria Morris PA-C Unavailable [phone] Edita CUELLO, Martinez Unavailable [phone] Cathy CUELLO, Sylvester Penaloza Unavailable + [phone] Smiley Calderon Unavailable [phone] Valery CUELLO, Dane Unavailable [phone] Colton Guardado MD Unavailable [phone] [place] DO Unavailable [phone] Kay CUELLO, Merle Unavailable [phone] Reason for Visit and Chief Complaint [facility] Medicare Follow Up Visit Problems Includes: Problems addressed during this encounter and other active Problems Current Visit Onset Date Resolved Date Provider Osvaldo laura Status 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 06/25/2021 Gloria Odioso Arturo PA-C Active Last Documented On 04/02/2022 10:30AM ; [facility] Note: 50-69% left, non surgical in [address] gar, repeat in one year Diabetes Mellitus Type 2 with Complication 06/25/2021 Gloria MOFFETT-C Active Last Documented On 2 10:45AM ; [facility] Chronic Respiratory Failure 07/04/2020 Narendra miramontes MD Active Last Documented On 07/04/2020 11:28AM ; [facility] Note: on continuous home oxygen Coronary Artery Disease 04/21/2019 Jessica MODIP Active Last Documented On 0 8:03AM ; [facility] Atherosclerosis Coronary Art maryann with Angina Pectoris 01/15/2019 Gloria MOFFETT-C Active Last Documented On 9 9:21AM ; [facility] Edema 01/14/2019 Philip MODIP Active Last Documented On 9 2:52PM ; [facility] Coronary Artery Disease 10/22/2018 Gloria Morris PA-C Inactive Last Documented On 9 9:21AM ; [facility] 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 Gloria Morris PA-C Active Last Documented On 9 8:57AM ; [facility] Note: per pulm notedECHO with 45-50%, mi ldly reduced LVSF 06/2017 Osteoarthritis Localized Primary Knees Bilateral 04/03/2018 Juany loyola PA-C Active Last Documented On 8 11:45AM ; [facility] 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 Narendra Campos MD Active Last Documented On 8 11:49AM ; [facility] Colon Polyps 06/20/2017 Martinez Kohler MD Active Last Documented On 8 11:24AM ; [facility] Atrial Fibrillation 10/10/2015 Narendra Campos MD Active Last Documented On 6 9:16AM ; [facility] Note: s/p ablation Chronic Obstructive Pulmonary Disease 11/29/2013 Narendra Campos MD Active Last Documented On 4 2:43PM ; [facility] Post-traumatic Stress Disorder 11/29/2013 Jt Campos MD Active Last Documented On 4 10:39AM ; [facility] Patellar Chondromalacia 03/02/2013 Narendra baltazar MD Active Last Documented On 4 7:42AM ; [facility] Note: Unchanged Asthma 09/04/2012 Narendra Campos MD Activ e Last Documented On 4 7:42AM ; [facility] Atherosclerosis Aorta 03/26/2012 Narendra mendez MD Active Last Documented On 4 7:42AM ; [facility] Note: on ct scan Rhinitis 08/04/2009 Narendra Campos MD Activ e Last Documented On 4 7:42AM ; [facility] Note: Unchanged Hypertension Systemic 07/28/2009 Norma PANDEY Active Last Documented On 0 6:29PM ; [facility] Note: Unchanged Colonic Diverticulosis 10/06/2007 Narendra oconnor MD Active Last Documented On 4 7:42AM ; [facility] Note: Unchanged Hyperlipidemia Mixed 10/06/2007 Narendra gomez MD Active Last Documented On 4 7:42AM ; [facility] Note: Unchanged Past Visits Onset Date Resolved Date Provider Condition Status Esophagitis Chronic Reflux 07/28/2009 Gloria Morris PA-C Active Last Documented On 06/16/2023 2:20PM ; [facility] Note: Unchanged Plan of Treatment In reviewing the patient's chart, performing examination and/or evaluation, counseling and education, ordering medications, tests if needed and documentation time spent was a minimum of 30 minutes. - Last Documented On 06/16/2023 3:00PM ; [facility] Visit complexity inherent to evaluation and management associated with medical care services that serve as the continuing focal point for all needed health care services and/or with medical care services that are part of ongoing care related to a patient's single, serious condition or a complex condition - Last Documented On 06/16/2023 3:00PM ; [facility] Pending Tests Order Diagnosis Results Due Ordering P ludmilader Lab Neuropathy (RO) 04/29/23 Gloria Morris PA-C Last Documented On 4 3:03PM ; [facility] Lab Hemoglobin A1c 04/29/23 Gloria Morris PA-C Last Documented On 4 3:03PM ; [facility] Lab Antinuclear Antibodies, IFA 04/29/23 Gloria Morris PA-C Last Documented On 4 3:03PM ; [facility] Lab Vitamin B12 04/29/23 Gloria Morris PA-C Last Documented On 4 3:03PM ; [facility] Lab Basic Metabolic Panel (8) 04/29/23 Gloria Morris PA-C Last Documented On 4 3:03PM ; [facility] Lab COMPLETE BLOOD COUNT 04/29/23 Janay dieter Morris PA-C Last Documented On 4 3:03PM ; [facility] Lab SED RATE, iSED 04/29/23 Gloria Morris PA-C Last Documented On 4 3:03PM ; [facility] Lab Folate (Folic Acid), Serum 04/29/23 Gloria Morris PA-C Last Documented On 4 3:03PM ; [facility] Lab Thyroxine (T4) Free, Direct, S 04/29 Gloria Morris PA-C Last Documented On 4 3:03PM ; [facility] Lab Hepatitis A Ab, IgM 04/29/23 Christopher Morris PA-C Last Documented On 4 3:03PM ; [facility] Lab Hepatitis A Ab, Total 04/29/23 Miguel Morris PA-C Last Documented On 4 3:03PM ; [facility] Lab Hepatitis B Core Ab, Tot 04/29/23 Gloria Morris PA-C Last Documented On 4 3:03PM ; [facility] Lab Hepatitis B Surface Ag 04/29/23 Ra helen Morris PA-C Last Documented On 4 3:03PM ; [facility] HEPATITIS B CORE AB TOTAL W/REFL IGM 04/29/23 Gloria Morris PA-C Last Documented On 4 3:03PM ; [facility] Hepatitis B Core Ab, IgM 04/29/23 Gloria Morris PA-C Last Documented On 4 3:03PM ; [facility] Hepatic Function Panel (7) 04/29/23 Gloria Morris PA-C Last Documented On 4 3:03PM ; [facility] Albumin/Creat Ratio Urine 04/29/23 Gloria Morris PA-C Last Documented On 4 3:03PM ; [facility] Lab RPR 04/29/23 Gloria Morris PA-C Last Documented On 4 3:03PM ; [facility] Lab Protein Electro.,S 04/29/23 Gloria Morris PA-C Last Documented On 4 3:03PM ; [facility] Lab TSH 04/29/23 Gloria Morris PA-C Last Documented On 4 3:03PM ; [facility] Protein Electro, Random Urine Gloria Morris PA-C Last Documented On 4 3:03PM ; [facility] Lab Vitamin D, 25-Hydroxy 04/29/23 Miguel Morris PA-C Last Documented On 4 3:03PM ; [facility] Care Programs Check if Patient is Eligible for CCM Services Last Documented On 8 12:04AM ; [facility] Future Tests Order Diagnosis Results Due Ordering Pr ovider Radiology Studies - Ultrasound U/S-Soft 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 04/18/21 Gloria Raman MOFFETT-Shaila Last Documented On 1 10:13AM ; [facility] Radiology Studies - Vascular Ultrasound Carotid Doppler Dizziness and giddiness 05/15/21 Gloria Raman Morris PA-C Last Documented On 2 10:33AM ; [facility] Refer To Neurology Dizziness and giddiness 06/07/21 Tremaine daniellelinda Morris PA-C Last Documented On 2 1:34PM ; [facility] Refer To ENT Dizziness and giddiness 06/07/21 R ledy MOFFETT-C Last Documented On 2 1:34PM ; [facility] Refer To Cardiology Cardiac arrhythmia, unspecified 05/16 08/03 Gloria MOFFETT-C Last Documented On 2 1:49PM ; [facility] Refer To Surgery-Vascular Occlusion and s tenosis of left carotid artery 06/20/21 Gloria Raman MOFFETT-C Last Documented On 2 9:10AM ; [facility] Refer To Gastroenterology Polyp of colon 12/12/22 Janay garcias Raman MOFFETT-Shaila Last Documented On 3 1:44PM ; [facility] Lab NEETA (RO1) 04/29/23 Gloria MOFFETT-C Last Documented On 4 8:52AM ; [facility] Lab CBC (RO1) 04/29/23 Gloria MOFFETT-C Last Documented On 4 8:52AM ; [facility] Lab Vitamin B12 (RO1) 04/29/23 Gloria MOFFETT-C Last Documented On 4 8:52AM ; [facility] Lab Vitamin D 25 hydroxy (RO1) 04/29/23 Glorianatividad MOFFETT-C Last Documented On 4 8:52AM ; [facility] Lab TSH , Free T4 (GVC) 04/29/23 Racdanni mckeon Raman MOFFETT-Shaila Last Documented On 4 8:52AM ; [facility] Lab Diabetes Panel (RO) 05/22/23 Ra helen MOFFETT-Shaila Last Documented On 3 1:28PM ; [facility] Refer To Neurology Dizziness and giddiness 05/22/23 R ledy MOFFETT-Shaila Last Documented On 4 8:55AM ; [facility] Refer To Physical Therapy Dizziness and giddiness Gloria MOFFETT-Shaila Last Documented On 4 8:55AM ; [facility] Assessments Includes: Assessments from this encounter Findings - Allergic rhinitis due to food - Last Documented On 06/16/2023 3:00PM ; [facility] - Unspecified atrial fibrillation - Last Documented On 06/16/2023 3:00PM ; [facility] - Atherosclerotic heart disease of creek coronary artery without angina pectoris - Last Documented On 06/16/2023 3:00PM ; [facility] - Chronic combined systolic (congestive) and diastolic (congestive) heart failure - Last Documented On 06/16/2023 3:00PM ; [facility] - Essential (primary) hypertension - Last Documented On 06/16/2023 3:00PM ; [facility] - Atherosclerosis of aorta - Last Documented On 06/16/2023 3:00PM ; [facility] - Atherosclerotic heart disease of creek coronary artery with other forms of angina pectoris - Last Documented On 06/16/2023 3:00PM ; [facility] - Occlusion and stenosis of left carotid artery - Last Documented On 06/16/2023 3:00PM ; [facility] - Edema, unspecified - Last Documented On 06/16/2023 3:00PM ; [facility] - Mild intermittent asthma, uncomplicated - Last Documented On 06/16/2023 3:00PM ; [facility] - Chronic obstructive pulmonary disease, unspecified - Last Documented On 06/16/2023 3:00PM ; [facility] - Chronic respiratory failure with hypoxia - Last Documented On 06/16/2023 3:00PM ; [facility] - Sleep apnea, unspecified - Patient reports feeling tired all the time and not getting good sleep at night due to issues with CPAP use. - Last Documented On 06/16/2023 3:00PM ; [facility] - Plan: Continue CPAP, following with pumlonology - Last Documented On 06/16/2023 3:00PM ; [facility] - Sleep apnea, unspecified - Last Documented On 06/16/2023 3:00PM ; [facility] - Polyp of colon - Last Documented On 06/16/2023 3:00PM ; [facility] - Diverticulosis of large intestine without perforation or abscess without bleeding - Last Documented On 06/16/2023 3:00PM ; [facility] - Body mass index [BMI] 28.0-28.9, adult - Last Documented On 06/16/2023 3:00PM ; [facility] - Mixed hyperlipidemia - Last Documented On 06/16/2023 3:00PM ; [facility] - Type 2 diabetes mellitus with other specified complication - Note the patient's A1C level at 6.8, indicative of type 2 diabetes mellitus, - Last Documented On 06/16/2023 3:00PM ; [facility] - Recommend dietary modifications, emphasizing the reduction of sugar intake - Last Documented On 06/16/2023 3:00PM ; [facility] - Hypotension, unspecified - Document the patient's low blood pressure readings at 100 over 60 and chronic light-headedness, raising concerns for orthostatic hypotension and the effects of isosorbide. - Last Documented On 06/16/2023 3:00PM ; [facility] - Suggest a tilt table test to investigate orthostatic hypotension. - Last Documented On 06/16/2023 3:00PM ; [facility] - Advise the patient to withhold blood pressure medication if readings are low and to take hydralazine only if blood pressure is elevated. - Last Documented On 06/16/2023 3:00PM ; [facility] - Coordinate with Dr. Guardado's office regarding: - Last Documented On 06/16/2023 3:00PM ; [facility] - The potential discontinuation of isosorbide. - Last Documented On 06/16/2023 3:00PM ; [facility] - Arranging a possible final visit before the patient relocates - Last Documented On 06/16/2023 3:00PM ; [facility] - Primary osteoarthritis, unspecified site - Last Documented On 06/16/2023 3:00PM ; [facility] - Chondromalacia patellae, unspecified knee - Last Documented On 06/16/2023 3:00PM ; [facility] - Dizziness and giddiness - Patient reports a history of falls, lightheadedness, and dizziness, which may be related to a previous stroke and/or peripheral neuropathy from Agent [employer] exposure. - Last Documented On 06/16/2023 3:00PM ; [facility] - Possible orthostatic hypotension or vertigo. - Last Documented On 06/16/2023 3:00PM ; [facility] - Complicated case - Last Documented On 06/16/2023 3:00PM ; [facility] - Plan: Refer the patient to a neurologist for further evaluation, would consider possible tilt table test to assess for orthostatic hypotension. Additionally, refer the patient to [facility] for vestibular rehabilitation to address balance issues Labwork WNL - Last Documented On 06/16/2023 3:00PM ; [facility] - Advise patient to f/u with new PCP at the [facility] after re[place]cating to [place] for further evluation - Last Documented On 06/16/2023 3:00PM ; [facility] - Post-traumatic stress disorder, unspecified - Last Documented On 06/16/2023 3:00PM ; [facility] Medication management - Last Documented On 06/16/2023 3:00PM ; [facility] - [facility] prim[facility] for tremors [facility] - Last Documented On 06/16/2023 3:00PM ; [facility] - Plan: Monitor the patient's medication use and consider potential side effects that may contribute to dizziness and balance issues. Encourage the patient to check blood pressure during episodes of dizziness to assess for potential correlation with low blood pressure. - Last Documented On 06/16/2023 3:00PM ; [facility] Medical Equipment - Implanted Devices Includes: Current Devices No Medical Equipment Recorded Medications Includes: Medications discussed during this encounter and other current Medications Discontinued / Stopped on this date Colton Guardado MD on 05/28/2023 Isosorbide Mononitrate ER 30 MG Oral Tablet Extended Release 24 Hour Provider: Colton estrella MD Diagnosis: Last Documented On 4 3:30PM By Arlette Aj ; [facility] Isosorbide Mononitrate ER 30 MG Oral Tablet Extended Release 24 Hour Provider: Colton estrella MD Diagnosis: Last Documented On 4 2:30PM By Gloria Morris PA-C ; [facility] Current Medications (continue as prescribed) Trelegy Ellipta 100-62.5-25 MCG/ACT Inhalation Aerosol Powder Breath Activated 05/13/2023 Provider: Shubham Patel APRN Diagnosis: Chronic obstruct ana m pulmonary disease, unspecified 1 puff qd Last Documented On 4 2:24PM By Shubham Patel APRN ; [facility] Albuterol Sulfate HFA 108 (9 0 Base) MCG/ACT Inhalation Aerosol Solution 05/13/2023 Provider: Brittany Patel APRN Diagnosis: Shortness of tristin ath 2 puffs q4h prn Last Documented On 4 2:24PM By Shubham Patel APRN ; [facility] Levocetirizine Dihydrochlori de 5 MG Oral Tablet 05/13/2023 Provider: Shubham Patel APRN Diagnosis: Allergic rhiniti s, unspecified 1 once daily Last Documented On 4 2:24PM By Shubham Patel APRN ; [facility] Albuterol Sulfate HFA 108 (90 Base) MCG/ACT Inhalation Aerosol Solution 07/19/2022 Provider: Frannie Guidry DNP EYELET RIVETER-BC Diagnosis: Shortness of tristin ath 2 puffs q4h prn Last Documented On 3 9:03AM By Frannie Garrison APRN ; [facility] Oxygen Inhalation Gas 04/02/2022 Provider: Diagnosis: Last Documented On 2 10:09AM By Gloria Morris PA-C ; [facility] Atorvastatin Calcium 80 MG Oral Tablet 02/20/2021 Provider: Gloria Briscoe Diagnosis: Mixed hyperlipid emia 1 once daily Last Documented On 2 9:52AM By Arlette Aj ; [facility] hydrALAZINE HCl 25 MG OR TABS 12/29/2020 Provider: Colton Guardado MD Diagnosis: every 8 hours as needed for for BP over 160 Last Documented On 2 9:53AM By Arlette Aj ; [facility] Metoprolol Succinate ER 50 M G Oral Tablet Extended Release 24 Hour 07/14/2020 Provider: Diagnosis: Last Documented On 1 4:45AM By Jessica BECKER ; [facility] Furosemide 20 MG OR TABS 06/24/2019 Provider: Keegan Guardado MD Diagnosis: 1 once daily Last Documented On 1 11:14AM By Aleah Cerda ; [facility] Fluticasone Propionate 50MCG/ACT Nasal Suspension 02/19/2019 Provider: Gloria Morris PA-C Diagnosis: Chronic sinusiti s, unspecified use as directed 2 sprays eac h nare daily Last Documented On 9 8:23AM By Savita Caal ; [facility] Primidone 50 MG OR TABS 10/13/2018 Provider: Supriya Lombardo DO Diagnosis: Tremor, unspecif ied 3po q HS Last Documented On 9 8:22AM By Savita Caal ; [facility] Sertraline HCl 100MG Oral Tablet 09/07/2017 Provider : Diagnosis: Last Documented On 8 2:34PM By Colton Guardado M.D. ; [facility] Aspirin EC Low Dose 81MG Oral Tablet Delayed Release 0 07/11/2016 Provider: Diagnosis: Last Documented On 7 4:19PM By Colton Guardado M.D. ; [facility] Pradaxa 150MG Oral Capsule 07/11/2016 Provider: Diagnosis: Last Documented On 7 4:15PM By Colton Guardado M.D. ; [facility] Temazepam 15 MG OR CAPS 07/20/2014 Provider: Janay Morris PA-C Diagnosis: Long-term use of high-risk meds. 1-2 qHS prn. Last Documented On 5 11:02AM By Gloria Morris PA-C ; [facility] Past Medications on file dilTIAZem HCl ER Coated Beads 240 MG Oral Capsule Extended Release 24 Hour 07/07/2023 - 08/06/2023 Provider: Colton Guardado MD Diagnosis: 1 once daily Last Documented On 4 10:28AM By Neo Lovelace ; [facility] Trelegy Ellipta 100-62.5-25 MCG/ACT Inhalation Aerosol Powder Breath Activated 11/19/2022 - 08/16/2023 Provider: Zofia BECKER Diagnosis: Chronic obstruct ana m pulmonary disease, unspecified 1 puff daily Last Documented On 3 12:17PM By Zofia Barrios APRN ; [facility] Nebulizer/Tubing/Mouthpiece Kit 08/08/19 23 - 12/05/2022 Provider: Sommer BECKER Diagnosis: Chronic obstruct ana m pulmonary disease, unspecified use as directed Last Documented On 3 5:13PM By Lauryn Parr ; [facility] Zetia 10 MG Oral Tablet 04/17/2022 - 01/12/2023 Provider: Colton Guardado MD Diagnosis: Hyperlipidemia, unspecified 1 once daily Last Documented On 3 3:05PM By Sean Plascencia ; [facility] Clobetasol Propionate 0.05% External Cream 01/17/2021 - 03/18/2021 Provider: Smiley BECKER 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 Do not apply to face or groin Last Documented On 1 1:43PM By ROSITA Blackburn ; [facility] Medications Administered Includes: Administered Medications from this encounter No Administered Medications Recorded Vital Signs Includes: Vital Signs from this encounter Vital Name 06/16/2023 02:04P Blood Pressure Sitting L 98/60 BP Cuff Size Large Pulse Rate-Sitting (bpm) 61 Respiration Rate (breaths/min) 18 Temp-Temporal 98.1 Height (in) 70 Weight (lb) 197.375 Body Mass Index 28.3 Body Surface Area 2.1 Oxygen Saturation (%) 95 Last Documented: On 06/16/2023 2:06PM ; [facility] Results Includes: Results discussed during this encounter Vitamin B12 ORCHARD IHL Ordered by Gloria anand PA-C on 05/20/[address] [place] [address], [phone] Collected: 05/20/2023 Report ed: 05/20/2023 15:04 tel: Last Documented On 4 3:03PM ; [facility] Reviewed by Gloria escalante PA-C on 06/16/2023; All test results are final unless otherwise noted. Review Note Provider Name Date reviewed today at Gloria Morris PA-C 07/2023 *The doctor has reviewed the labs and will discuss at your next appointment 05/27/23 Melanie Martin PA-C 05/27/2023 pt was notifies and sta beto she would let him know 05/27/2023 Note: The above testing was completed at [facility], [address] [place] [id number] (CLIA#[id number]) PH#: [id number] 509 pg/mL ([phone]) None Last Documented On 4 12:37PM ; [facility] FOLATE ORCHARD IHL Ordered by Gloria anand PA-C on 05/20/[address] [place] [address], [phone] Collected: 05/20/2023 Report ed: 05/20/2023 15:13 tel: Last Documented On 4 3:03PM ; [facility] Reviewed by Gloria escalante PA-C on 06/16/2023; All test results are final unless otherwise noted. Review Note Provider Name Date reviewed today at [facility] Gloria Morris PA-C 07/2023 *The doctor has reviewed the labs and will discuss at your next appointment 05/27/23 Melanie Martin PA-C 05/27/2023 pt was notifies and sta beto she would let him know 05/27/2023 Note: The above testing was completed at [facility], [address] [place] [phone] (CLIA#[id number]) PH#: FOLATE 8.1 ng/mL (>3.0) None Last Documented On 4 12:37PM ; [facility] SED RATE, iSED ORCHARD IHL Ordered by Gloria anand PA-C on 05/20/[address] [place] [address], [phone] Collected: 05/20/2023 Report ed: 05/20/2023 14:00 tel: Last Documented On 4 3:03PM ; [facility] Reviewed by Gloria escalante PA-C on 06/16/2023; All test results are final unless otherwise noted. Review Note Provider Name Date reviewed today at OV Gloria Morris PA-C 07/2023 *The doctor has reviewed the labs and will discuss at your next appointment 05/27/23 Melanie Martin PA-C 05/27/2023 pt was notifies and sta beto she would let him know 05/27/2023 Note: The above testing was completed at [facility], [address] [place] [address] (CLIA#[id number]) PH#: SED_RATE 2 mm/hr (0-19) None Last Documented On 4 12:37PM ; [facility] Hepatitis A Ab, IgM ORCHARD IHL Ordered by Gloria anand PA-C on 05/20/[address] [place] [address], [address] Collected: 05/20/2023 Report ed: 05/20/2023 15:46 tel:[phone] Last Documented On 4 3:03PM ; [facility] Reviewed by Gloria escalante PA-C on 06/16/2023; All test results are final unless otherwise noted. Review Note Provider Name Date reviewed today at OV Gloria Morris PA-C 07/2023 *The doctor has reviewed the labs and will discuss at your next appointment 05/27/23 Melanie Martin PA-C 05/27/2023 pt was notifies and sta beto she would let him know 05/27/2023 Note: The above testing was completed at [facility], [address] [place] [address] (CLIA#[id number]) PH#: Hep A Ab, IgM Non-Reactive COI (Non-Reactive) None Last Documented On 4 12:37PM ; [facility] Hepatitis A Ab, Total ORCHARD IHL Ordered by Gloria anand PA-C on 05/20/[address] [place] [address], [address] Collected: 05/20/2023 Report ed: 05/20/2023 15:46 tel:[phone] Last Documented On 4 3:03PM ; [facility] Reviewed by Gloria escalante PA-C on 06/16/2023; All test results are final unless otherwise noted. Review Note Provider Name Date reviewed today at OV Gloria Morris PA-C 07/2023 *The doctor has reviewed the labs and will discuss at your next appointment 05/27/23 Melanie Liberty Martin PA-C 05/27/2023 pt was notifies and sta beto she would let him know 05/27/2023 Note: The above testing was completed at [facility], [id number] [place] [address] (CLIA#[id number]) PH#: Hep A Ab, Total Non-Reactive COI (Non-Reactive) None Last Documented On 4 12:37PM ; [facility] Hepatitis B Surface Ag ORCHARD IHL Ordered by Gloria anand PA-C on 05/20/[address] [place] [address], [address] Collected: 05/20/2023 Report ed: 05/20/2023 15:46 tel:[phone] Last Documented On 4 3:03PM ; [facility] Reviewed by Gloria escalante PA-C on 06/16/2023; All test results are final unless otherwise noted. Review Note Provider Name Date reviewed today at OV Gloria Morris PA-C 07/2023 *The doctor has reviewed the labs and will discuss at your next appointment 05/27/23 Melanie Liberty Martin PA-C 05/27/2023 pt was notifies and alek pérez she would let him know 05/27/2023 Note: The above testing was completed at [facility], [address] [place] [address] (CLIA#[id number]) PH#: Hep B Surface Ag Non-Reactive COI (Non-Reactive) None Last Documented On 4 12:37PM ; [facility] Hepatitis B Core Ab, Tot ORCHARD IHL Ordered by Gloria anand PA-C on 05/20/[address] [place] [address] [place], [address] Collected: 05/20/2023 Report ed: 05/20/2023 15:46 tel:[phone] Last Documented On 4 3:03PM ; [facility] Reviewed by Gloria escalante PA-C on 06/16/2023; All test results are final unless otherwise noted. Review Note Provider Name Date reviewed today at Gloria Morris PA-C 07/2023 *The doctor has reviewed the labs and will discuss at your next appointment 05/27/23 Melanie Liberty Martin PA-C 05/27/2023 pt was notifies and alek pérez she would let him know 05/27/2023 Note: The above testing was completed at [facility], [address] [place] [address] (CLIA#[id number]) PH#: Hep B Core Ab, Total Non-Reactive COI (Non-Reactive) None Last Documented On 4 12:37PM ; [facility] Hepatitis B Core Ab, IgM ORCHARD IHL Ordered by Gloria anand PA-C on 05/20/[address] [place] [address], [address] Collected: 05/20/2023 Report ed: 05/20/2023 15:46 tel:[phone] Last Documented On 4 3:03PM ; [facility] Reviewed by Gloria escalante PA-C on 06/16/2023; All test results are final unless otherwise noted. Review Note Provider Name Date reviewed today at Gloria Morris PA-C 07/2023 *The doctor has reviewed the labs and will discuss at your next appointment 05/27/23 Melanie Martin PA-C 05/27/2023 pt was notifies and sta beto she would let him know 05/27/2023 Note: The above testing was completed at [facility], [address] [place] [address] (CLIA#[id number]) PH#: Hep B Core Ab, IgM Non-Reactive COI (Non-Reactive) None Last Documented On 4 12:37PM ; [facility] COMPLETE BLOOD COUNT ORCHARD IHL Ordered by Gloria anand PA-C on 05/20/[address] [place] [address], [address] Collected: 05/20/2023 Report ed: 05/20/2023 14:12 tel:[phone] Last Documented On 4 3:03PM ; [facility] Reviewed by Gloria escalante PA-C on 06/16/2023; All test results are final unless otherwise noted. Review Note Provider Name Date reviewed today at OV Gloria Morris PA-C 07/2023 *The doctor has reviewed the labs and will discuss at your next appointment 05/27/23 Melanie Martin PA-C 05/27/2023 pt was notifies and sta beto she would let him know 05/27/2023 Note: The above testing was completed at [facility], [address] [place] [address] (CLIA#[id number]) PH#: BASO # 0.0 3/UL (0.0-0.2) None Last Documented On 4 12:37PM ; [facility] BASO% 0.4 % None Last Documented On 4 12:37PM ; [facility] EOS # 0.4 3/UL (0.0-0.7) None Last Documented On 4 12:37PM ; [facility] EOS% 5.5 % None Last Documented On 4 12:37PM ; [facility] HCT 46.2 % (42.0-52.0) None Last Documented On 4 12:37PM ; [facility] HGB 14.8 g/dL (14.0-18.0) None Last Documented On 4 12:37PM ; [facility] LYMPH# 2.1 3/UL (0.9-4.8) None Last Documented On 4 12:37PM ; [facility] LYMPH % 30.1 % None Last Documented On 4 12:37PM ; [facility] MCH 30.0 PG (27.0-31.0) None Last Documented On 4 12:37PM ; [facility] MCHC 32.0 g/dL (32.0-37.0) None Last Documented On 4 12:37PM ; [facility] MCV 93.7 fL (80.0-94.0) None Last Documented On 4 12:37PM ; [facility] MONO# 0.6 3/UL (0.0-1.1) None Last Documented On 4 12:37PM ; [facility] MONO% 8.2 % None Last Documented On 4 12:37PM ; [facility] NEUT # 4.0 3/UL (2.2-8.1) None Last Documented On 4 12:37PM ; [facility] NEUT % 55.5 % None Last Documented On 4 12:37PM ; [facility] PLT 246 3/UL (130-400) None Last Documented On 4 12:37PM ; [facility] RBC 4.93 6/UL (4.20-5.60) None Last Documented On 4 12:37PM ; [facility] RDW 12.6 % (11.0-15.0) None Last Documented On 4 12:37PM ; [facility] WBC 7.1 3/UL (4.3-10.8) None Last Documented On 4 12:37PM ; [facility] Vitamin D, 25-Hydroxy ORCHARD IHL Ordered by Gloria anand PA-C on 05/20/2023 [address] [facility], [place], [address] Collected: 05/20/2023 Report ed: 05/20/2023 15:05 tel: Last Documented On 4 3:03PM ; [facility] Reviewed by Gloria escalante PA-C on 06/16/2023; All test results are final unless otherwise noted. Review Note Provider Name Date reviewed today at Gloria Morris PA-C 07/2023 *The doctor has reviewed the labs and will discuss at your next appointment 05/27/23 Melanie Martin PA-C 05/27/2023 pt was notifies and sta beto she would let him know 05/27/2023 Note: The above testing was completed at [facility], [address] [place] [address] (CLIA#[id number]) PH#: VIT D 25-HYDROXY 32.60 ng/mL (30.00-100.00) None Last Documented On 4 12:37PM ; [facility] Thyroxine (T4) Free, Direct, S ORCHARD I HL Ordered by Gloria anand PA-C on 05/20/[address] [place] [address], [address] Collected: 05/20/2023 Report ed: 05/20/2023 15:13 tel: Last Documented On 4 3:03PM ; [facility] Reviewed by Gloria escalante PA-C on 06/16/2023; All test results are final unless otherwise noted. Review Note Provider Name Date reviewed today at Gloria Morris PA-C 07/2023 *The doctor has reviewed the labs and will discuss at your next appointment 05/27/23 Melanie Martin PA-C 05/27/2023 pt was notifies and sta beto she would let him know 05/27/2023 Note: The above testing was completed at [facility], [address] [place] [address] (CLIA#[id number]) PH#: FT4 (FREE THYROXINE) 1.00 ng/dL (0.80-1.80) None Last Documented On 4 12:37PM ; [facility] TSH ORCHARD IHL Ordered by Gloria anand PA-C on 05/20/[address] [place] [address], [phone] Collected: 05/20/2023 Report ed: 05/20/2023 15:19 tel:[phone] Last Documented On 4 3:03PM ; [facility] Reviewed by Gloria escalante PA-C on 06/16/2023; All test results are final unless otherwise noted. Review Note Provider Name Date reviewed today at Gloria Morris PA-C 07/2023 *The doctor has reviewed the labs and will discuss at your next appointment 05/27/23 Melanie Martin PA-C 05/27/2023 pt was notifies and sta beto she would let him know 05/27/2023 Note: The above testing was completed at [facility], [address] [place] [address]21 (CLIA#[id number]) PH#: TSH 2.96 mIU/mL (0.27-4.20) None Last Documented On 4 12:37PM ; [facility] Hemoglobin A1c ORCHARD IHL Ordered by Gloria anand PA-C on 05/20/[address] [place] [address], [address] Collected: 05/20/2023 Report ed: 05/20/2023 15:05 tel:[phone] Last Documented On 4 3:03PM ; [facility] Reviewed by Gloria escalante PA-C on 06/16/2023; All test results are final unless otherwise noted. Review Note Provider Name Date reviewed today at Gloria Morris PA-C 07/2023 *The doctor has reviewed the labs and will discuss at your next appointment 05/27/23 Melanie Liberty Martin PA-C 05/27/2023 pt was notifies and sta beto she would let him know 05/27/2023 Note: The above testing was completed at [facility], [address] [place] [address] (CLIA#[id number]) PH#: HEMOGLOBIN A1C 6.8 % (0.0-6.4) H (High) Last Documented On 4 12:37PM ; [facility] Note: < 5.7 Decreased risk of diabetes 5 .7-6.0 Increased risk of diabetes 6.1-6.4 High risk of diabetes > or = 6.5 Consistant with diabetes Basic Metabolic Panel (8) ORCHARD L Ordered by Gloria anand PA-C on 05/20/[address] [place] [address], [address] Collected: 05/20/2023 Report ed: 05/20/2023 18:35 tel: Last Documented On 4 3:03PM ; [facility] Reviewed by Gloria escalante PA-C on 06/16/2023; All test results are final unless otherwise noted. Review Note Provider Name Date reviewed today at OV Gloria Morris PA-C 07/2023 *The doctor has reviewed the labs and will discuss at your next appointment 05/27/23 Melanie Liberty Martin PA-C 05/27/2023 pt was notifies and sta beto she would let him know 05/27/2023 Note: The above testing was completed at [facility], [address] [place] [address] (CLIA#[id number]) PH#: BUN/CREAT RATIO 16.2 CALC (6.0-25.0) None Last Documented On 4 12:37PM ; [facility] BUN 18.3 mg/dL (5.0-25.0) None Last Documented On 4 12:37PM ; [facility] CALCIUM 9.1 mg/dL (8.5-10.5) None Last Documented On 4 12:37PM ; [facility] CHLORIDE 104 mEq/L (95-108) None Last Documented On 4 12:37PM ; [facility] CARBON DIOXIDE 26 mEq/L (21-32) None Last Documented On 4 12:37PM ; [facility] CREATININE 1.13 mg/dL (0.50-1.50) None Last Documented On 4 12:37PM ; [facility] eGFR 66 mL/min/1.73m2 (>=60) None Last Documented On 4 12:37PM ; [facility] Note: The eGFR is based on the CKD-EPI 2 021 equation. To calculate the new eGFR from a previous Creatinine result, goto https://www.kidney.org/professionals/kdoqi/gfr_calculatorThe National Kidney Foundation recommends using the CKD-EPI Creatinine Equation (2020) to estimate GFR. More informationregarding this recommendation may be found:https://www.ajkd.org/article/R4017-74474504828-7/fulltext GLUCOSE 118 mg/dL (70-99) H (High) Last Documented On 4 12:37PM ; [facility] POTASSIUM 5.0 mEq/L (3.5-5.3) None Last Documented On 4 12:37PM ; [facility] SODIUM 141 mEq/L (135-146) None Last Documented On 4 12:37PM ; [facility] Albumin/Creat Ratio Urine ORCHARD IHL Ordered by Gloria anand PA-C on 05/20/2023 [address] [facility], [place], [address] Collected: 05/20/2023 Report ed: 05/20/2023 16:34 tel: Last Documented On 4 3:03PM ; [facility] Reviewed by Gloria escalante PA-C on 06/16/2023; All test results are final unless otherwise noted. Review Note Provider Name Date reviewed today at OV Gloria Morris PA-C 07/2023 *The doctor has reviewed the labs and will discuss at your next appointment 05/27/23 Melanie Martin PA-C 05/27/2023 pt was notifies and sta beto she would let him know 05/27/2023 Note: The above testing was completed at [facility], [address] [place] [address] (CLIA#[id number]) PH#: ALB/CREAT RATIO 4.3 ug/mg (0.0-30.0) None Last Documented On 4 12:37PM ; [facility] ALBUMIN, URINE 6.9 mg/L (0.0-200.0) None Last Documented On 4 12:37PM ; [facility] CREATININE, URINE 159.5 mg/dl (20.0-300.0) None Last Documented On 4 12:37PM ; [facility] Hepatic Function Panel (7) ORCHARD IHL Ordered by Gloria anand PA-C on 05/20/[address] [place] [address], [address] Collected: 05/20/2023 Report ed: 05/20/2023 19:16 tel: Last Documented On 4 3:03PM ; [facility] Reviewed by Gloria escalante PA-C on 06/16/2023; All test results are final unless otherwise noted. Review Note Provider Name Date reviewed today at OV Gloria Morris PA-C 07/2023 *The doctor has reviewed the labs and will discuss at your next appointment 05/27/23 Melanie Martin PA-C 05/27/2023 pt was notifies and sta beto she would let him know 05/27/2023 Note: The above testing was completed at [facility], [address] [place] [address] (CLIA#[id number]) PH#: A/G RATIO 1.7 CALC (1.1-2.3) None Last Documented On 4 12:37PM ; [facility] ALBUMIN 4.4 g/dL (3.5-5.2) None Last Documented On 4 12:37PM ; [facility] ALK. PHOSPHATASE 105 U/L (35-118) None Last Documented On 4 12:37PM ; [facility] ALT (SGPT) 21 U/L (0-41) None Last Documented On 4 12:37PM ; [facility] AST (SGOT) 16 U/L (0-40) None Last Documented On 4 12:37PM ; [facility] DIRECT BILIRUBN 0.10 mg/dL (0.00-0.40) None Last Documented On 4 12:37PM ; [facility] GLOBULIN 2.5 g/dL (1.9-4.2) None Last Documented On 4 12:37PM ; [facility] INDIRECT BILIRUBIN 0.21 mg/dL (0.10-0.80) None Last Documented On 4 12:37PM ; [facility] TOTAL BILIRUBIN 0.31 mg/dL (0.00-1.20) None Last Documented On 4 12:37PM ; [facility] TOTAL PROTEIN 6.9 g/dL (6.0-8.5) None Last Documented On 4 12:37PM ; [facility] Antinuclear Antibodies, IFA ORCHARD IHL Ordered by Gloria anand PA-C on 05/20/2023 [address] [place], [address] Collected: 05/20/2023 Report ed: 05/23/2023 10:01 tel: Last Documented On 4 3:03PM ; [facility] Reviewed by Gloria escalante PA-C on 06/16/2023; All test results are final unless otherwise noted. Review Note Provider Name Date reviewed today at OV Gloria Morris PA-C 07/2023 pt was notifies and sta beto she would let him know 05/27/2023 Note: [facility] [id number] performed at: [place], [address] [place], [address], Electric Shaver Mechanic:DR. Betsy HuffmanQuest Collection Date/Time: [id number] Results Received Date/Time: [id number] Reported Date/Time: [id number]: NO NEETA SCREEN, IFA NEGATIVE (NEGATIVE) None Last Documented On 12:37PM ; [facility] Note: NEETA IFA is a first line screen for detecting thepresence of up to approximately 150 autoantibodies invarious autoimmune diseases. A negative NEETA IFA resultsuggests an NEETA-associated autoimmune disease is notpresent at this time, but is not definitive. If thereis high clinical suspicion for Sjogren's syndrome,testing for anti-SS-A/Ro antibody should be considered.Anti-Stacey-1 antibody should be considered for clinicallysuspected inflammatory myopathies.AC-0: NegativeInternational Consensus on NEETA Patterns(https://doi.org/10.1515/mipo-4680-8515)Fo r additional information, please refer tohttp://education.[facility].TapPress/faq/XRZ566 (This link is being provided for informational/educational purposes only.) RPR ORCHARD IHL Ordered by Gloria anand PA-C on 05/20/2023 [address] [place], [place], [address] Collected: 05/20/2023 Report ed: 05/23/2023 10:01 tel: Last Documented On 4 3:03PM ; [facility] Reviewed by Gloria escalante PA-C on 06/16/2023; All test results are final unless otherwise noted. Review Note Provider Name Date reviewed today at Gloria Morris PA-C 07/2023 pt was notifies and sta beto she would let him know 05/27/2023 Note: [facility] [id number] performed at: [facility], [address] [place], [place], , Electric Shaver Mechanic: Jose Ga Collection Date/Time: [id number] Results Received Date/Time: [id number] Reported Date/Time: [id number]: NO RPR (MONITOR) W/REFL TITER NON-REACTIVE (NON-REACTIVE) None Last Documented On 4 12:37PM ; [facility] Protein [employer].,S ORCHARD IHL Ordered by Gloria anand PA-C on 05/20/2023 [address] [place], [address] Collected: 05/20/2023 Report ed: 05/23/2023 10:01 tel: Last Documented On 4 3:03PM ; [facility] Reviewed by Gloria escalante PA-C on 06/16/2023; All test results are final unless otherwise noted. Review Note Provider Name Date reviewed today at Gloria Morris PA-C 07/2023 pt was notifies and sta beto she would let him know 05/27/2023 Note: [facility] [id number] performed at: [facility], [address], [place], [place], , Electric Shaver Mechanic: Jose Ga Collection Date/Time: [id number] Results Received Date/Time: [id number] Reported Date/Time: [id number]: NO PROTEIN, TOTAL 7.0 g/dL (6.1-8.1) None Last Documented On 4 12:37PM ; [facility] ALBUMIN 3.9 g/dL (3.8-4.8) None Last Documented On 4 12:37PM ; [facility] ALPHA 1 GLOBULIN 0.3 g/dL (0.2-0.3) None Last Documented On 4 12:37PM ; [facility] ALPHA 2 GLOBULIN 0.7 g/dL (0.5-0.9) None Last Documented On 4 12:37PM ; [facility] GAMMA GLOBULIN 1.1 g/dL (0.8-1.7) None Last Documented On 4 12:37PM ; [facility] INTERPRETATION SEE NOTE None Last Documented On 4 12:37PM ; [facility] Note: Possible monoclonal protein (M-pro tein) present.Suggest serum immunofixation. ABNORMAL PROTEIN BAND 1 0.2 g/dL (NONE DETECTED) H (High) Last Documented On 4 12:37PM ; [facility] BETA 1 GLOBULIN 0.5 g/dL (0.4-0.6) None Last Documented On 4 12:37PM ; [facility] BETA 2 GLOBULIN 0.5 g/dL (0.2-0.5) None Last Documented On 4 12:37PM ; [facility] Protein Electro, Random Urine ORCHARD IH L Ordered by Gloria anand PA-C on 05/20/2023 [address] [place], [address] Collected: 05/20/2023 Report ed: 05/27/2023 09:40 tel: Last Documented On 4 3:03PM ; [facility] Reviewed by Gloria escalante PA-C on 06/16/2023; All test results are final unless otherwise noted. Review Note Provider Name Date reviewed today at OV Gloria Morris PA-C 07/2023 Note: [facility] [id number] performed at: , [facility], [facility] [place], [address], Electric Shaver Mechanic: Jose Sheridan MDQuest Collection Date/Time: [id number] Results Received Date/Time: [id number] Reported Date/Time: [id number]: NO CREATININE, RANDOM URINE 148 mg/dL (20-320) None Last Documented On 4 12:37PM ; [facility] PROTEIN/CREATININE RATIO 74 mg/g_creat (25-148) None Last Documented On 4 12:37PM ; [facility] PROTEIN, TOTAL, RANDOM UR 11 mg/dL (5-25) None Last Documented On 4 12:37PM ; [facility] INTERPRETATION SEE NOTE None Last Documented On 4 12:37PM ; [facility] Note: Normal Pattern ALBUMIN 41 % None Last Documented On 4 12:37PM ; [facility] [id number] 4 % None Last Documented On 4 12:37PM ; [facility] [id number] 14 % None Last Documented On 4 12:37PM ; [facility] BETA GLOBULINS 15 % None Last Documented On 4 12:37PM ; [facility] GAMMA GLOBULINS 26 % None Last Documented On 4 12:37PM ; [facility] PROTEIN/CREATININE RATIO 0.074 mg/mg_creat (0.025-0.148) None Last Documented On 4 12:37PM ; [facility] History of Present Illness Includes: History of Present Illness from this encounter HPI Nick Oliva is a 77 year old male. - Allergy list reviewed - Medication list reviewed OV 04/22/2023: The patient presents for evaluation of chronic dizziness and balance issues. He reports recurrent episodes of lightheadedness and has sustained several falls. The patient characterizes the sensation as lightheadedness rather than vertigo. He notes that these symptoms have been ongoing, with a history of discussing falls, lightheadedness, and spinning sensations with a neurologist in December 2021. During a previous consultation, Dr. Velasco suggested the possibility of an old stroke, which was unexpected information for the patient. Currently, the patient is on primidone for tremors. 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 He has not monitored his blood pressure during dizziness episodes but reports stable blood pressure readings today. The patient had an MRI in 2021, but did not follow up with Dr. Velasco after being advised by another physician that the MRI results were satisfactory. Additionally, the patient experiences persistent fatigue, falling asleep early in the evening around 8 PM and occasionally in the morning at 11 AM. He expresses concern about the quality of his sleep at night and is using a CPAP machine, which he finds disruptive due to noise and entanglement issues. He also reports symptoms of dry mouth and frequent loss of voice, which he suspects may be associated with the use of the CPAP machine. Today: Patient presents for follow-up of the above, with plans to relocate to [place], scheduled to depart on the 01 of July. They report no changes in their medication regimen since the last consultation. The chief complaint is balance issues, which have been a recent concern for the patient. The patient's recent laboratory results indicate borderline pre-diabetic blood sugar levels, with an A1C measurement of 6.8, suggestive of type 2 diabetes. During the visit, the patient also reports symptoms of light-headedness, which may be of clinical significance given a blood pressure reading of 100/60. DM type 2 diet controlled. Hypertension managed on metoprolol, diltiazem and hydralazine as needed. Hyperlipidemia on atorvastatin. Diagnostics done since the last visit has been reviewed and discussed with the patient. The patient's chart was reviewed. Social History Description Last Updated No tobacco use 05/13/2023 Last Documented On 4 1:56PM ; [facility] Lives with spouse 05/28/2022 Last Documented On 4 1:56PM ; [facility] Outdoor activites GOLF 11/17/2019 Last Documented On 4 1:56PM ; [facility] No use of tanning lights 11/17/2019 Last Documented On 4 1:56PM ; [facility] Using sunscreen 11/17/2019 Last Documented On 4 1:56PM ; [facility] What SPF do you wear 50 11/17/2019 Last Documented On 4 1:56PM ; [facility] Retired from work 04/28/2019 Last Documented On 4 1:56PM ; [facility] 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 Last Documented On 4 1:56PM ; [facility] Sun exposure: Burn sometimes, henriquez easily 04/02/2018 Last Documented On 4 1:56PM ; [facility] Past sun exposure: Moderate 03/19/2018 Last Documented On 4 1:56PM ; [facility] Present sun exposure: Moderate 8 Last Documented On 4 1:56PM ; [facility] Alcohol use: 2 drinks or less per day Last Documented On 4 1:56PM ; [facility] Former smoker 11/19/2017 Last Documented On 4 1:56PM ; [facility] Never used drugs 11/19/2017 Last Documented On 4 1:56PM ; [facility] AUDIT-C questionnaire was 0 06/20/2017 Last Documented On 4 1:56PM ; [facility] Alcohol use 2-3 drinks nightly 7 Last Documented On 4 1:56PM ; [facility] No living will 06/07/2016 Last Documented On 4 1:56PM ; [facility] Smoking status : Former smoker Quit in 1 982 [id number] [id number] 06/07/2016 Last Documented On 4 1:56PM ; [facility] Pets in the home 06/29/2015 Last Documented On 4 1:56PM ; [facility] Alcohol Social drinker 06/29/2015 Last Documented On 4 1:56PM ; [facility] Caffeine use 1 cup daily 06/29/2015 Last Documented On 4 1:56PM ; [facility] Currently 06/29/2015 Last Documented On 4 1:56PM ; [facility] Occupation was unknown 06/29/2015 Last Documented On 4 1:56PM ; [facility] Not a current smoker 12/27/2013 Last Documented On 4 1:56PM ; [facility] Not using drugs 12/27/2013 Last Documented On 4 1:56PM ; [facility] A previous history of smoking 09/04/2012 Last Documented On 4 1:56PM ; [facility] Alcohol use 09/04/2012 Last Documented On 4 1:56PM ; [facility] Cigarette smoking for an unknown number of pack-years 08/14/2012 Last Documented On 4 1:56PM ; [facility] Not smoking 08/14/2012 Last Documented On 4 1:56PM ; [facility] Procedures and Surgical History Includes: Procedures from this encounter Procedures Code Diagnosis Performing Provider Service Location Service Date Complex e/m visit add on [id number] Primary osteoarthritis, unspecified site Gloria Morris PA-C [facility] 06/16/2023 Last Documented On 4 3:27PM ; [facility] Most recent diastolic < 80 mm Hg 3078F Overweight, Body mass index [BMI] 28.0-28.9, adult Gloria Morris PA-C [facility] 06/16/2023 Last Documented On 4 4:48AM ; [facility] Most recent systolic < 130 mm Hg 3074F Overweight, Body mass index [BMI] 28.0-28.9, adult Gloria Morris PA-C [facility] 06/16/2023 Last Documented On 4 4:50AM ; [facility] Body mass index docd 3008F Overweight, Body mass index [BMI] 28.0-28.9, adult Gloria Morris PA-C [facility] 06/16/2023 Last Documented On 4 4:51AM ; [facility] diastolic blood pressure < 80 mmHg 3078F Last Documented On 4 2:07PM ; [facility] systolic blood pressure < 130 mmHg 3074F Last Documented On 4 2:07PM ; [facility] body mass index documented 3008F Last Documented On 4 2:07PM ; [facility] Surgical History Last Updated History of heart surgery Heart ablation - 09/201506/07/2016 Last Documented On 4 1:56PM ; [facility] No history of surgery 06/29/2015 Last Documented On 4 1:56PM ; [facility] Medical History Includes: Medical History addressed during this encounter Description Last Updated History of chronic obstructive pulmonary disease 07/10/2021 Last Documented On 4 1:56PM ; [facility] History of systemic hypertension 022 Last Documented On 4 1:56PM ; [facility] Basal cell carcinoma of the skin 020 Last Documented On 4 1:56PM ; [facility] Hearing loss 11/17/2019 Last Documented On 4 1:56PM ; [facility] History of arthritis 11/17/2019 Last Documented On 4 1:56PM ; [facility] History of coronary artery disease 11/16 Last Documented On 4 1:56PM ; [facility] LT elbow calcium deposit removal - 1975 ~Lorenzo cataract removal - 201506/07/2016 Last Documented On 4 1:56PM ; [facility] Advance healthcare directive in chart Last Documented On 4 1:56PM ; [facility] 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 09/04/2012 Last Documented On 4 1:56PM ; [facility] History of chronic reflux esophagitis Last Documented On 4 1:56PM ; [facility] History of colonic diverticulosis 2012 Last Documented On 4 1:56PM ; [facility] History of hyperlipidemia 09/04/2012 Last Documented On 4 1:56PM ; [facility] Stomach problems 09/04/2012 Last Documented On 4 1:56PM ; [facility] No history of diabetes mellitus 08/15/19 Last Documented On 4 1:56PM ; [facility] No history of skin cancer 08/14/2012 Last Documented On 4 1:56PM ; [facility] Family History Includes: Family History addressed during this encounter Description Last Updated Paternal history of essential hypertensi on 05/30/2021 Last Documented On 4 1:56PM ; [facility] Paternal history of family history of is chemic heart disease 12/01/2020 Last Documented On 4 1:56PM ; [facility] Maternal history of arthritis 03/19/2018 Last Documented On 4 1:56PM ; [facility] Maternal history of stroke syndrome TIA 06/07/2016 Last Documented On 4 1:56PM ; [facility] Paternal history of paternal history CHF 06/07/2016 Last Documented On 4 1:56PM ; [facility] 1 daughter(s) living 06/07/2016 Last Documented On 4 1:56PM ; [facility] 1 son(s) living 06/07/2016 Last Documented On 4 1:56PM ; [facility] Brother(s) living x1 06/07/2016 Last Documented On 4 1:56PM ; [facility] Father at age 64 06/07/2016 Last Documented On 4 1:56PM ; [facility] Mother at age 86 06/07/2016 Last Documented On 4 1:56PM ; [facility] Sister(s) living x2 06/07/2016 Last Documented On 4 1:56PM ; [facility] Family history of allergies Self 016 Last Documented On 4 1:56PM ; [facility] Family history of cancer Mother 06/29/19 16 Last Documented On 4 1:56PM ; [facility] Family history of hearing loss Self 06/12 Last Documented On 4 1:56PM ; [facility] No family history of asthma 06/29/2015 Last Documented On 4 1:56PM ; [facility] No family history of diabetes mellitus 0 06/29/2015 Last Documented On 4 1:56PM ; [facility] No family history of migraine headache 0 06/29/2015 Last Documented On 4 1:56PM ; [facility] No family history of tuberculosis 2015 Last Documented On 4 1:56PM ; [facility] Maternal history of family history of ca ncer Breast 11/29/2013 Last Documented On 4 1:56PM ; [facility] Family history of a history of cancer Last Documented On 4 1:56PM ; [facility] Family history of arthritis 09/04/2012 Last Documented On 4 1:56PM ; [facility] Family history of cardiac problems 09/04 Last Documented On 4 1:56PM ; [facility] No family history of breast cancer 08/14 Last Documented On 4 1:56PM ; [facility] No family history of colon cancer 2012 Last Documented On 4 1:56PM ; [facility] No family history of coronary artery dis ease 08/14/2012 Last Documented On 4 1:56PM ; [facility] No family history of prostate cancer 06/2012 Last Documented On 4 1:56PM ; [facility] No family history of skin cancer 013 Last Documented On 4 1:56PM ; [facility] Review of Systems Includes: Review of Systems from this encounter All other systems negative except those mentioned above in the HPI. Functional Status Includes: Functional Status from this encounter No Functional Status Recorded Physical Exam Includes: Physical Exam from this encounter Allergies Includes: Active Allergies Substance Type Reaction Onset Date Resolved Date Statu s Ranexa Allergy 05/13/2019 Active Last Documented On 06/16/2023 2:04PM ; [facility] Note: facial lip swelling listaprill Allergy swollen 07/13/2020 Active Last Documented On 4 2:04PM ; [facility] Encounters Encounter Provider Location Date Check-In Time Check-Out Time Diagnosis [facility] Medicare Follow Up Visit Gloria Morris PA-C [facility] Ad Flanagan 06/16/19 24 2:15PM 2:35PM Organic Sleep Apnea,Dizziness ,Body Mass Index 28.0-28.9, Adult,Colonic Diverticulosis, Hyperlipidemia Mixed,Hypertens ion Systemic,Rhinit is,Atherosclero sis Aorta,Asthma,Pa tellar Chondromalacia, Chronic Obstructive Pulmonary Disease,Post-tr aumatic Stress Disorder,Atrial Fibrillation,Co abdoul Polyps,Organic Sleep Apnea,Osteoarth ritis Localized Primary Knees Bilateral,Chf Combined Systolic and Diastolic Chronic,Atheros clerosis Coronary Artery with Angina Pectoris,Edema, Coronary Artery Disease,Chronic Respiratory Failure,Diabete s Mellitus Type 2 with Complication,Ca rotid Artery 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 Cerebral Infarction,Card iovascular Disorders Hypotension Insurance Includes: Active Insurance Policies Plan Name Member ID Group # Subscriber Relationship Effect ana m Dates 1 - Medicare Part B [id number] Nick Farnsworth Oliva Self 2 - [employer]/ [employer] [id number] Nick Farnsworth Oliva Self 07/13 - Unknown Advance Directives Includes: Current Advance Directives Directive Pat Aware Third Republican Effective Date Reviewed [facility] Power of Surgical Scrub Technologist/Healthcare Surrogate Yes 08/08/2017 Current and Verified Clinical Notes Includes: Clinical Notes from this encounter * Progress note Date Encounter Last Documented by 06/16/2023 [facility] Medicare Follow Up Visit Sarah benítez documented on 06/16/2023; 3:00 PM, Gloria Morris PA-C; [facility] Active Problems & Conditions - Asthma - Atherosclerosis Aorta - on ct scan - Atherosclerosis Coronary Artery with Angina Pectoris - Atrial Fibrillation - s/p ablation - 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 - 50-69% left, non surgical in [address] gar, repeat in one year - Chf Combined Systolic and Diastolic Chronic - per pulm notedECHO with 45-50%, mildly reduced LVSF 06/2017 - Chronic Obstructive Pulmonary Disease - Chronic Respiratory Failure - on continuous home oxygen - Colon Polyps - Colonic Diverticulosis - Coronary Artery Disease - Diabetes Mellitus Type 2 with Complication - Edema - Esophagitis Chronic Reflux - Hyperlipidemia Mixed - Hypertension Systemic - Organic Sleep Apnea - Osteoarthritis Localized Primary Knees Bilateral - Patellar Chondromalacia - Post-traumatic Stress Disorder - Rhinitis Chief Complaint Follow-up History of Present Illness Nick Oliva is a 77 year old male. - Allergy list reviewed - Medication list reviewed OV 04/22/2023: The patient presents for evaluation of chronic dizziness and balance issues. He reports recurrent episodes of lightheadedness and has sustained several falls. The patient characterizes the sensation as lightheadedness rather than vertigo. He notes that these symptoms have been ongoing, with a history of discussing falls, lightheadedness, and spinning sensations with a neurologist in December 2021. During a previous consultation, Dr. Velasco suggested the possibility of an old stroke, which was unexpected information for the patient. Currently, the patient is on primidone for tremors. 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 He has not monitored his blood pressure during dizziness episodes but reports stable blood pressure readings today. The patient had an MRI in 2021, but did not follow up with Dr. Velasco after being advised by another physician that the MRI results were satisfactory. Additionally, the patient experiences persistent fatigue, falling asleep early in the evening around 8 PM and occasionally in the morning at 11 AM. He expresses concern about the quality of his sleep at night and is using a CPAP machine, which he finds disruptive due to noise and entanglement issues. He also reports symptoms of dry mouth and frequent loss of voice, which he suspects may be associated with the use of the CPAP machine. Today: Patient presents for follow-up of the above, with plans to relocate to [place], scheduled to depart on the 01 of July. They report no changes in their medication regimen since the last consultation. The chief complaint is balance issues, which have been a recent concern for the patient. The patient's recent laboratory results indicate borderline pre-diabetic blood sugar levels, with an A1C measurement of 6.8, suggestive of type 2 diabetes. During the visit, the patient also reports symptoms of light-headedness, which may be of clinical significance given a blood pressure reading of 100/60. DM type 2 diet controlled. Hypertension managed on metoprolol, diltiazem and hydralazine as needed. Hyperlipidemia on atorvastatin. Diagnostics done since the last visit has been reviewed and discussed with the patient. The patient's chart was reviewed. Current Medication - Albuterol Sulfate HFA 108 (90 Base) MCG/ACT Inhalation Aerosol Solution 2 puffs q4h prn, 30 days, 3 refills - Albuterol Sulfate HFA 108 (90 Base) MCG/ACT Inhalation Aerosol Solution 2 puffs q4h prn, 30 days, 2 refills - Aspirin EC Low Dose 81MG Oral Tablet Delayed Release 81 MG 1 once daily 0 days, 0 refills - Atorvastatin Calcium 80 MG Oral Tablet 1 once daily, 90 days, 2 refills - dilTIAZem HCl ER Coated Beads 240 MG Oral Capsule Extended Release 24 Hour 1 once daily, 30 days, 0 refills - Fluticasone Propionate 50MCG/ACT Nasal Suspension 50 MCG/ACT use as directed 2 sprays each nare daily, 30 days, 11 refills - Furosemide 20 MG Tablet 1 once daily 1 once daily, 90 days, 3 refills - hydrALAZINE HCl 25 MG Tablet every 8 hours every 8 hours as needed for for BP over 160, 30 days, 3 refills - Isosorbide Mononitrate ER 30 MG Oral Tablet Extended Release 24 Hour TAKE 1 TABLET BY MOUTH EVERY DAY, 90 days, 2 refills - Levocetirizine Dihydrochloride 5 MG Oral Tablet 1 once daily, 90 days, 1 refills - Metoprolol Succinate ER 50 MG Oral Tablet Extended Release 24 Hour 1 once daily 0 days, 0 refills - Oxygen Inhalation Gas 0 days, 0 refills - Pradaxa 150MG Oral Capsule 150 MG 1 twice a day 0 days, 0 refills - Primidone 50 MG Tablet use as directed 3po q HS, 30 days, 3 refills - Sertraline HCl 100MG Oral Tablet 100 MG 1 twice a day 0 days, 0 refills - Temazepam 15 MG Capsule use as directed 1-2 qHS prn., 90 days, 0 refills - Trelegy Ellipta 100-62.5-25 MCG/ACT Inhalation Aerosol Powder Breath Activated 1 puff daily, 90 days, 2 refills - Trelegy Ellipta 100-62.5-25 MCG/ACT Inhalation Aerosol Powder Breath Activated 1 puff qd, 28 days, 5 refills Past Medical/Surgical History Reported: Medical: Stomach problems. Legal Documents: Advance healthcare directive on file. Diagnoses: Hearing loss. Coronary artery disease Systemic hypertension. Chronic obstructive pulmonary disease. Chronic reflux esophagitis Colonic diverticulosis. Hyperlipidemia. No diagnosis of diabetes mellitus. Arthritis. Benign polyps of the large intestine. Basal cell carcinoma of the skin. No diagnosis of skin cancer LT elbow calcium deposit removal - 1975 Lorenzo cataract removal - 2015. Surgical: - No surgery - Heart surgery Heart ablation - 09/2015 Social History Environmental Exposure: No use of tanning lights. Past sun exposure: Moderate and Present sun exposure: Moderate. Legal Documents: No living will. Caffeine use: Caffeine use 1 cup daily. Tobacco use: No tobacco use and not a current smoker. Not a current smoker and cigarette smoking: unknown number of pack-years history. Former smoker. Former smoker. Smoking status: Former smoker Quit in 1981 [id number] 1PPD. Alcohol: Alcohol Social drinker and alcohol use 2-3 drinks nightly. Alcohol use alcohol use: 2 drinks or less per day. AUDIT-C questionnaire was 0. Drug Use: Not using drugs. Never used drugs. Habits: Using sunscreen and What SPF do you wear 50. Housing And Economic Circumstances: Lives with spouse. Work: Retired from work. 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 Activities: Outdoor activites GOLF. Marital: Currently . Pets in the home. Sun exposure: Burn sometimes, henriquez easily. Allergies - listaprill Reaction: swollen - Ranexa Family History Father at age 64 Mother at age 86 Brother(s) living x1 Sister(s) living x2 1 son(s) living 1 daughter(s) living Cancer Mother Allergies Self Hearing loss Self Cardiac problems A history of cancer No diagnosis of coronary artery disease No diagnosis of asthma No diagnosis of diabetes mellitus Arthritis No diagnosis of migraine headache No diagnosis of tuberculosis No diagnosis of colon cancer No diagnosis of skin cancer No diagnosis of breast cancer No diagnosis of prostate cancer Paternal: Paternal history CHF Ischemic heart disease Essential hypertension Maternal: Cancer Breast Arthritis Stroke syndrome TIA Review Of Systems All other systems negative except those mentioned above in the HPI. Physical Findings - Vitals taken 06/16/2023 02:04 pm BP-Sitting L 98/60 mmHg BP Cuff Size Large Pulse Rate-Sitting 61 bpm Respiration Rate 18 per min Temp-Temporal 98.1 F Height 70 in Weight 197 lbs 6 oz Body Mass Index 28.3 kg/m2 Body Surface Area 2.1 m2 Oxygen Saturation 95 % GENERAL: The patient is a well developed, well nourished, in no acute distress. EYES: Conjunctivae are without erythema. Extraocular movements normal. CARDIOVASCULAR: Regular rate. Extremities without edema, varicosities or cyanosis. RESPIRATORY: No retractions. Nonlabored. SKIN: Skin is warm and dry without pallor or cyanosis. There are no rashes, lesions or ulcers noted. NEUROLOGICAL: Gait intact. No focal deficits. Sensation is intact to light touch. PSYCHIATRIC: Alert and oriented x 3. No evidence of depression, anxiety or apparent distress. Assessment - Allergic rhinitis due to food - Unspecified atrial fibrillation - Atherosclerotic heart disease of creek coronary artery without angina pectoris - Chronic combined systolic (congestive) and diastolic (congestive) heart failure - Essential (primary) hypertension - Atherosclerosis of aorta - Atherosclerotic heart disease of creek coronary artery with other forms of angina pectoris - Occlusion and stenosis of left carotid artery - Edema, unspecified - Mild intermittent asthma, uncomplicated - Chronic obstructive pulmonary disease, unspecified - Chronic respiratory failure with hypoxia - Sleep apnea, unspecified - Patient reports feeling tired all the time and not getting good sleep at night due to issues with CPAP use. - Plan: Continue CPAP, following with pumlonology - Sleep apnea, unspecified - Polyp of colon - Diverticulosis of large intestine without perforation or abscess without bleeding - Body mass index [BMI] 28.0-28.9, adult - Mixed hyperlipidemia - Type 2 diabetes mellitus with other specified complication - Note the patient's A1C level at 6.8, indicative of type 2 diabetes mellitus, - Recommend dietary modifications, emphasizing the reduction of sugar intake - Hypotension, unspecified - Document the patient's low blood pressure readings at 100 over 60 and chronic light-headedness, raising concerns for orthostatic hypotension and the effects of isosorbide. - Suggest a tilt table test to investigate orthostatic hypotension. - Advise the patient to withhold blood pressure medication if readings are low and to take hydralazine only if blood pressure is elevated. - Coordinate with Dr. Guardado's office regarding: - The potential discontinuation of isosorbide. - Arranging a possible final visit before the patient relocates - Primary osteoarthritis, unspecified site - Chondromalacia patellae, unspecified knee - Dizziness and giddiness - Patient reports a history of falls, lightheadedness, and dizziness, which may be related to a previous stroke and/or peripheral neuropathy from Agent Bowman exposure. - Possible orthostatic hypotension or vertigo. - Complicated case - Plan: Refer the patient to a neurologist for further evaluation, would consider possible tilt table test to assess for orthostatic hypotension. Additionally, refer the patient to [facility] for vestibular rehabilitation to address balance issues Labwork WNL - Advise patient to f/u with new PCP at the [facility] after reolcating to [facility] for further evluation - Post-traumatic stress disorder, unspecified Medication management - Patient [facility] tremors [facility] - Plan: Monitor the patient's medication use and consider potential side effects that may contribute to dizziness and balance issues. Encourage the patient to check blood pressure during episodes of dizziness to assess for potential correlation with low blood pressure. Previous Tests - Test: Vitamin B12 Report Date: 05/20/2023 VITAMIN B-12 509 pg/mL - Test: FOLATE Report Date: 05/20/2023 FOLATE 8.1 ng/mL - Test: SED RATE, iSED Report Date: 05/20/2023 SED_RATE 2 mm/hr - Test: Hepatitis A Ab, IgM Report Date: 05/20/2023 Hep A Ab, IgM Non-Reactive COI - Test: Hepatitis A Ab, Total Report Date: 05/20/2023 Hep A Ab, Total Non-Reactive COI - Test: Hepatitis B Surface Ag Report Date: 05/20/2023 Hep B Surface Ag Non-Reactive COI - Test: Hepatitis B Core Ab, Tot Report Date: 05/20/2023 Hep B Core Ab, Total Non-Reactive COI - Test: Hepatitis B Core Ab, IgM Report Date: 05/20/2023 Hep B Core Ab, IgM Non-Reactive COI - Test: COMPLETE BLOOD COUNT Report Date: 05/20/2023 BASO # 0.0 3/UL BASO% 0.4 % EOS # 0.4 3/UL EOS% 5.5 % HCT 46.2 % HGB 14.8 g/dL LYMPH# 2.1 3/UL LYMPH % 30.1 % MCH 30.0 PG MCHC 32.0 g/dL MCV 93.7 fL MONO# 0.6 3/UL MONO% 8.2 % NEUT # 4.0 3/UL NEUT % 55.5 % PLT 246 3/UL RBC 4.93 6/UL RDW 12.6 % WBC 7.1 3/UL - Test: Vitamin D, 25-Hydroxy Report Date: 05/20/2023 VIT D 25-HYDROXY 32.60 ng/mL - Test: Thyroxine (T4) Free, Direct, S Report Date: 05/20/2023 FT4 (FREE THYROXINE) 1.00 ng/dL - Test: TSH Report Date: 05/20/2023 TSH 2.96 mIU/mL - Test: Hemoglobin A1c Report Date: 05/20/2023 HEMOGLOBIN A1C 6.8 % High - Test: Basic Metabolic Panel (8) Report Date: 05/20/2023 BUN/CREAT RATIO 16.2 CALC BUN 18.3 mg/dL CALCIUM 9.1 mg/dL CHLORIDE 104 mEq/L CARBON DIOXIDE 26 mEq/L CREATININE 1.13 mg/dL eGFR 66 mL/min/1.73m2 GLUCOSE 118 mg/dL High POTASSIUM 5.0 mEq/L SODIUM 141 mEq/L - Test: Albumin/Creat Ratio Urine Report Date: 05/20/2023 ALB/CREAT RATIO 4.3 ug/mg ALBUMIN, URINE 6.9 mg/L CREATININE, URINE 159.5 mg/dl - Test: Hepatic Function Panel (7) Report Date: 05/20/2023 A/G RATIO 1.7 CALC ALBUMIN 4.4 g/dL ALK. PHOSPHATASE 105 U/L ALT (SGPT) 21 U/L AST (SGOT) 16 U/L DIRECT BILIRUBN 0.10 mg/dL GLOBULIN 2.5 g/dL INDIRECT BILIRUBIN 0.21 mg/dL TOTAL BILIRUBIN 0.31 mg/dL TOTAL PROTEIN 6.9 g/dL - Test: Antinuclear Antibodies, IFA Report Date: 05/23/2023 NEETA SCREEN, IFA NEGATIVE - Test: RPR Report Date: 05/23/2023 RPR (MONITOR) W/REFL TITER NON-REACTIVE - Test: Protein Electro.,S Report Date: 05/23/2023 PROTEIN, TOTAL 7.0 g/dL ALBUMIN 3.9 g/dL ALPHA 1 GLOBULIN 0.3 g/dL ALPHA 2 GLOBULIN 0.7 g/dL GAMMA GLOBULIN 1.1 g/dL INTERPRETATION SEE NOTE ABNORMAL PROTEIN BAND 1 0.2 g/dL High BETA 1 GLOBULIN 0.5 g/dL BETA 2 GLOBULIN 0.5 g/dL - Test: Protein Electro, Random Urine Report Date: 05/27/2023 CREATININE, RANDOM URINE 148 mg/dL PROTEIN/CREATININE RATIO 74 mg/g creat PROTEIN, TOTAL, RANDOM UR 11 mg/dL INTERPRETATION SEE NOTE ALBUMIN 41 % [id number] 4 % [id number] 14 % BETA GLOBULINS 15 % GAMMA GLOBULINS 26 % PROTEIN/CREATININE RATIO 0.074 mg/mg creat Plan StartCited - Other Follow-up as previous, patient moving EndCited In reviewing the patient's chart, performing examination and/or evaluation, counseling and education, ordering medications, tests if needed and documentation time spent was a minimum of 30 minutes. Visit complexity inherent to evaluation and management associated with medical care services that serve as the continuing focal point for all needed health care services and/or with medical care services that are part of ongoing care related to a patient's single, serious condition or a complex condition Practice Management Body mass index documented, for blood pressure systolic < 140 mmHg systolic < 130 mmHg, and diastolic < 80 mmHg. Advance Directives - Healthcare Power of Surgical Scrub Technologist/Healthcare Surrogate Care Team - Narendra Campos MD - Family Practice - Smiley Garcia, BARREL FILLER - Nurse Practitioner - Dane Rasmussen MD - [facility] - Maryan Landeros MD - Surgery - Mt Mistry DO - Pulmonary Disease - Bora Gar MD - Vascular Surgery - Sylvester Morgan MD - Neurology - Gloria Morris PA-C - Physician Clinical Liaison - Colton Guardado MD - Cardiology - Martinez Kohler MD - Gastroenterology - [facility] - Hematology & Oncology - Deni Bernabe MD - Orthopaedic Surgery of the Spine - Merle Villanueva MD - Pulmonary Disease - Christ Moulton III MD - Orthopaedic Surgery
--- OUTSIDE RECORDS SUMMARY | 2024-05-13 13:37 | XMS_ITS | Encounter Summary ---
Author Name [facility] [place] Organization [facility] [place] Address [address] [place] [address] Care Team Providers Care Gravity Prospecting Operator Name Role Phone ERNESTO ARBOLEDA Primary [...] PART B August 12, 2008 PART B [id number] [phone] Dawson YOUNGER PATIENT MEDICARE (WNR) MEDICARE (M) PART A August 12, 2008 PART A [id number] Dawson YOUNGER PATIENT MEDICARE (WNR) MEDICARE (M) PART A August 12, 2008 PART A [id number] Dawson YOUNGER PATIENT MEDICARE (WNR) MEDICARE (M) PART B August 12, 2008 PART B [id number] Dawson YOUNGER PATIENT MEDICARE (WNR) MEDICARE (M) PART B August 12, 2008 PART B [id number] Dawson YOUNGER PATIENT MEDICARE (WNR) MEDICARE (M) PART A August 12, 2008 PART A [id number] [facility] Dawson YOUNGER PATIENT MEDICARE (WNR) MEDICARE (M) PART B August 12, 2008 PART B [id number] Dawson YOUNGER PATIENT MEDICARE (WNR) MEDICARE (M) PART B August 12, 2008 PART B [id number] [facility] Dawson YOUNGER PATIENT MEDICARE (WNR) MEDICARE (M) PART A August 12, 2008 PART A [id number] [facility] Dawson YOUNGER PATIENT MEDICARE (WNR) MEDICARE (M) PART A August 12, 2008 PART A [id number] Dawson YOUNGER PATIENT MEDICARE PART D (WNR) PRESCRIPT ION PART D Apr 14, 2015 PART D [id number] Dawson YOUNGER PATIENT [employer]ARE PREFERRED PROVIDER ORGANIZAT ION (PPO) [facility] August 12, 2008 [id number] Dawson YOUNGER PATIENT [employer] MEDICARE SUPPLEMEN FARHAD [facility] August 12, 2008 [id number] [id number] [phone] Dawson YOUNGER PATIENT UNICARE-G. [employer].C. MEDICAL EXPENSE (OPT/PROF ) [facility] N August 12, 2008 [id number] Dawson YOUNGER PATIENT Selected Encounter This section includes the information on record at [place] for the Encounter. Date/Time Encounter Type Encounter Description Reason Provider Source September 09, 2023 10:55 AM TARGETED CASE MANAGEMENT ADMIN [facility] MARGARET ROMO [facility] Encounter Template Text not used by PA Plan of Treatment: Future Appointments (+ 6 months) and Future Tests (+/- 45 days) The Plan of Treatment section includes future care activities for the patient [facility] This section includes future appointments and future orders which are active, pending or scheduled. Future Appointments This section includes appointments that were scheduled to occur 6 months from the date of the Encounter, up to a maximum of 20 appointments. The data comes from all [place] treatment facilities. Appointment Date/Time Appointment Type Appointme nt Facility Name September 10, 2023 11:00 AM AMBULATORY - NONE [facility] [place] [facility] Sep 23, 2023 09:00 AM AMBULATORY - PSYCHIATRY [facility] [place] [facility] Oct 02, 2023 11:00 AM AMBULATORY - NONE [facility] [place] [facility] Oct 30, 2023 02:30 PM AMBULATORY - MEDICINE [facility] Nov 07, 2023 01:00 PM AMBULATORY - REHAB MEDICIN [facility] Nov 13, 2023 10:00 AM AMBULATORY - PSYCHIATRY [facility] [place] [facility] Nov 13, 2023 02:00 PM AM[facility]ULATORY [facility]ICINE [facility] [place] [facility] Nov 14, 2023 01:00 PM AM[facility]ULATORY [facility]ICINE [facility] [place] [facility] Nov 14, 2023 02:00 PM AM[facility]ULATORY - [facility]ICINE [facility] [place] [facility] Dec 01, 2023 08:30 AM AMBULATORY - PSYCHIATRY [facility] [place] [facility] Dec 09, 2023 03:00 PM AMBULATORY - PSYCHIATRY [facility] [place] [facility] Dec 25, 2023 11:00 AM AMBULATORY - PSYCHIATRY [facility] [place] [facility] Jan 01, 2024 01:30 PM AM[facility]ULATORY [facility]ICINE [facility] [place] [facility] Jan 01, 2024 02:00 PM AM[facility]ULATORY [facility]ICINE [facility] [place] [facility] Jan 02, 2024 02:00 PM AMBULATORY - REHAB MEDICIN E [facility] [place] [facility] Jan 21, 2024 02:30 PM AMBULATORY - PSYCHIATRY [facility] [place] [facility] Jan 21, 2024 02:31 PM AMBULATORY - PS[facility]CHIATRY [facility] [place] [facility] Feb 05, 2024 11:00 AM AM[facility]UL[facility]ORY [facility] Feb 05, 2024 01:30 PM AMBULATORY - MEDICINE [facility] Feb 26, 2024 01:00 PM AMBULATORY - MEDICINE MISSY PEARL Active, Pending, and Scheduled Orders This section includes a listing of several types of active, pending, and scheduled orders, including clinic medications orders, diagnostic test orders, procedure orders and consult orders; where the start date of the order is 45 days before the date of the Encounter or 45 days after the date of theEncounter. The data comes from all [place] treatment facilities. Test Date/Time Test Type Test Details Facility Name Oct 02, 2023 11:26 AM Consult Order [facility] Cons Receiving Tank Operator's Choice [facility] Advance Directives: All historical and current Section Date Range: From patient's date of to the date document was created. This section includes ALL of a patient's completed or amended [place] Advance and Rescinded Directives. The entries below indicate that a directive exists for the patient, but an actual copy is not included with this document. The data comes from all [place] facilities. Date Advance Directives Provider Source August 25, 2023 ADVANCE DIRECTIVE MICHELLE LEVINE ZANEIELD Encounter Notes: All associated encounter notes This section contains the clinical notes associated to the Encounter. Date/Time Encounter Note(s) Provider Source September 09, 2023 10:56 AM PRIMARY CARE NOTE: LOCAL TITLE: PCMM ASSIGNMENT [facility] NOTE STANDARD TITLE: PRIMARY CARE NOTE DATE OF NOTE: SEPTEMBER 09, 2023@10:56 ENTRY DATE: SEPTEMBER 09, 2023@10:56:23 AUTHOR: GIBRAN ROMO EXP COSIGNER: URGENCY: STATUS: COMPLETED PAST ESTABLISHMENT OF CARE: PCMM notification RECEIVED, REVIEWED, AND APPROVED [place] established care/ relocated at the following TIME and LOCATION: 08/07/2023 15:00 CWM/SO/PACT 1 SUPERVISOR FILES /es/ CHASE Romo RN, BSN Signed: 09/09/2023 10:56 CHASE ROMO [facility]
--- OUTSIDE RECORDS SUMMARY | 2024-05-13 13:37 | XMS_ITS | Encounter Summary ---
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 tasks. It is possible that some measures of executive functioning were reduced by visuospatial skill. The may have difficulty processing information about spatial information that contributed to his difficulty drawing and tracing lines. SPEECH AND LANGUAGE FUNCTIONING: The displayed below expected performances on tests of language abilities. He was able to correctly identify 48 out of 60 pictures on the [place] Naming Test. ASSESSMENT OF MOOD: GDS and FAYE-7 Mr. Younger completed the GDS, a self-report questionnaire that measures an individual's level of depression. Mr. Younger earned a score of 0, indicating that he is not experiencing clinically significant levels of depression. Mr. Younger was also given the FAYE-7, a self-report questionnaire that measures an individual's levels of anxiety. Mr. Younger earned a score of 0, indicating that he is not experiencing clinically significant levels of anxiety. SUMMARY: Elbert Younger is an 78-year-old, right-handed, White male who was referred for a neuropsychological evaluation by his psychologist, Dr. Lizeth Stanley after the [place] reported a progressively worsening memory and to assess for the presence of a neurocognitive disorder. Neuropsychological testing revealed that the performed below expected in the domains of Attention/Concentration, Visual Memory/Visuospatial Skills, Executive Functioning, Speech and Language abilities, Processing Speed, and demonstrated a variable performance in Auditory/Verbal Memory. Specifically, he demonstrated below expected performances on tasks of working memory, rote verbal memory, visual memory, and episodic memory. He also demonstrated weaknesses in processing speed, semantic/phonemic verbal fluency abilities, and with completing tasks of higher-level cognitive functioning (e.g., utilizing processing speed and working memory simultaneously on the [place] Making Tests). Based on the results of the current neuropsychological evaluation, the [place] met DSM-5 criteria for a major neurocognitive disorder due to multiple etiologies. The [place] has several vascular risk factors, including hypertension, hyperlipidemia, diabetes, atherosclerosis of the aorta and coronary artery, COPD, as well as a reported history of stroke which was self-reported by the [place]. At this time, given the 's significant executive functioning deficits, we cannot rule out that these declines may be due in part to microvascular and large vessel changes to frontal-subcortical brain regions. The [place] is also demonstrating a variable performance across cognitive domains. During a test of rote verbal memory, he demonstrated a variable learning curve. While he did benefit from recognition during the story memory task, this was not the case on the visual memory task or the rote verbal memory task. The falsely identified items on both the rote verbal memory and visual memory recognition tasks, and thus is having a difficult time differentiating between information that was presented to him from that, that was not. This suggests that he is likely experiencing a decline in his ability to encode and retrieve novel information. Declines in the ability to retain and retrieve novel verbal information are suggestive of a diagnosis of a progressive dementia process such as Alzheimer's disease which cannot be ruled out at this time. The impacts of medication must also be considered as a potential contributor to reduced performance on neuropsychological testing. This takes significantly sedating medications including Quetiapine. It is unlikely that the 's performance during testing was solely the result of significantly sedating medications, but it may exacerbate his cognitive difficulties. Although the denied current symptoms of anxiety or depression, he did endorse a history of PTSD with ongoing symptoms which cause a significant sleep disturbance. Disturbed sleep has been known to negatively impact executive functioning, attention, and working memory. PTSD has also been known to adversely impact performance on tasks of working memory, attention, processing speed, verbal memory, and executive functioning. Although this may be a contributing factor to the 's performance, it is unlikely that disturbed sleep or psychological factors alone account for these results. It is important to note that MRI scanning of the brain is recommended to corroborate the results of the current evaluation and determine if cortical and subcortical changes may be present and causing the 's cognitive decline. 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 Given that the is experiencing global cognitive deficits, current neuroimaging, [...] given the cognitive declines demonstrated by the [place], it is recommended that he continue to refrain from driving or if he wishes to begin driving again, undergo a driving evaluation to determine whether he has the skills and abilities to continue to drive safely. A handout of facilities that conduct these types of evaluations will be given to the during the feedback session and can be found at the following website: [email or web address]/ 5.Given the level of decline in the [place]'s memory, it would be helpful if the establish a consistent and routine schedule that he can follow each day. Behaviors that are repetitive and routine have been found to increase cognitive capacities and may also help reduce further memory deficits. 6. Ongoing monitoring of vascular risk factors is important in order to preserve his health and cognitive functioning. It is well known that cardiovascular problems such as hypertension and hyperlipidemia may significantly impact cognitive functioning. Medication management and stability in mediation regimen will also be beneficial in helping the [place] avoid further cognitive declines. 7. The [place] has impairments in verbal recall and therefore complex information should be broken down into basic, and simple steps. Tasks involving multiple steps, or complex directions, should be reduced to single steps that are completed one at a time. 8. We encourage the [place] to stay as physically active as possible, which will aid in cardiovascular health and help avoid further cognitive decline. It is important that the begin these physical activities slowly, but then gradually increasing them to a level that feels comfortable to him. Exercise has also been shown to have a positive effect on mood and overall mental health. A referral to physical therapy may be beneficial in helping teach the [place] physical activities in which he can engage, given his difficulties with walking. 9. The is encouraged to engage in activities that involve critical thinking and problem solving, such as crossword puzzles, word-find games, and Sudoku. It is well known that activities such as these may help reduce risk for cognitive declines. 10. It is important that the [place] maintain healthy diet and sleep patterns, which can also be protective in staving off future cognitive declines. 11. The would benefit from psychotherapy to address the significant feelings of distress he experiences related to his cognitive function as well as symptoms of PTSD. 12. Alcohol is known to have a negative impact on brain health. It is recommended that the reduce his alcohol consumption or ideally abstain from alcohol. Thank you for referring this [place] for a neuropsychological evaluation. If there are any questions about the information contained in this report, please contact Dr. Lyn Lizarraga at [phone]. /es/ LYN LIZARRAGA,PHD PSYCHOLOGIST Signed: 12/09/2023 08:13 Receipt Acknowledged By: 12/09/2023 08:48 /es/ LIZETH STANLEY CLINICAL PSYCHOLOGIST 12/10/2023 10:35 /es/ LYN CANCHOLA M.D. [facility]
--- OUTSIDE RECORDS SUMMARY | 2024-05-13 13:37 | XMS_ITS | Encounter Summary ---
Author Name [facility] [place] Organization [facility] [place] [facility] [place] Address [address] [place] [address] Care Team Providers Care Building Certifier Name Role Phone ERNESTO ARBOLEDA Primary Care [...] PART A August 12, 2008 PART A [id number] [phone] Dawson YOUNGER PATIENT MEDICARE (WNR) MEDICARE (M) PART B August 12, 2008 PART B [id number] [phone] Dwason YOUNGER PATIENT MEDICARE (WNR) MEDICARE (M) PART A August 12, 2008 PART A [id number] [phone] Dawson YOUNGER PATIENT MEDICARE (WNR) MEDICARE (M) PART B August 12, 2008 PART B [id number] [phone] Dawson YOUNGER PATIENT MEDICARE (WNR) MEDICARE (M) PART A August 12, 2008 PART A [id number] Dawson YOUNGER PATIENT MEDICARE (WNR) MEDICARE (M) PART B August 12, 2008 PART B [id number] Dawson YOUNGER PATIENT MEDICARE (WNR) MEDICARE (M) PART B August 12, 2008 PART B [id number] Dawson YOUNGER PATIENT MEDICARE (WNR) MEDICARE (M) PART A August 12, 2008 PART A [id number] Dawson YOUNGER PATIENT MEDICARE (WNR) MEDICARE (M) PART A August 12, 2008 PART A [id number] [phone] Dawson YOUNGER PATIENT MEDICARE (WNR) MEDICARE (M) PART B August 12, 2008 PART B [id number] Dawson YOUNGER PATIENT MEDICARE PART D (WNR) PRESCRIPT ION PART D Apr 14, 2015 PART D [id number] Dawson YOUNGER PATIENT UNICARE PREFERRED PROVIDER ORGANIZAT ION (PPO) [facility] IN[facility] N August 12, 2008 [id number] Dawson YOUNGER PATIENT UNICARE MEDICARE [facility]MEN [facility] N August 12, 2008 [id number] [phone] Dawson YOUNGER PATIENT UNICARE-G. I.C. MEDICAL EXPENSE (OPT/PROF ) [facility] August 12, 2008 [id number] Dawson YOUNGER PATIENT Selected Encounter This section includes the information on record at [place] for the Encounter. Date/Time Encounter Type Encounter Description Reason Provider Source Feb 26, 2024 01:00 PM OFFICE O/P EST MOD 30 MIN PRIMARY CARE/MEDICINE ICD-10-CM F03.B4 Unspecified dementia, moderate, with anxiety ERNESTO ARBOLEDA [facility] Encounter Template Text not used by [place] Assessments - Encounter Diagnoses This section includes the primary and secondary diagnoses documented for the Encounter. Date/Time Primary/Secondary Diagnosis Diagnosis Name Provider Source Mar 14, 2024 08:40 AM PRIMARY Unspecified dementia, moderate, with anxiety ERNESTO ARBOLEDA [place] Mar 14, 2024 08:40 AM SECONDARY Athscl heart disease of [place] coronary artery w/o ang pctrs ERNESTO ARBOLEDA [place] Mar 14, 2024 08:40 AM SECONDARY Chronic kidney disease, stage 3 unspecified ERNESTO ARBOLEDA [place] Mar 14, 2024 08:40 AM SECONDARY Chronic obstructive pulmonary disease, unspecified ERNESTO ARBOLEDA [place] Mar 14, 2024 08:40 AM SECONDARY Chronic respiratory failure with hypoxia ERNESTO ARBOLEDA [place] Mar 14, 2024 08:40 AM SECONDARY Gastro-esophageal reflux disease without esophagitis ERNESTO ARBOLEDA [place] Mar 14, 2024 08:40 AM SECONDARY Generalized anxiety disorder ERNESTO ARBOLEDA [place] Mar 14, 2024 08:40 AM SECONDARY senior care (current) use of anticoagulants ERNESTO ARBOLEDA [place] Mar 14, 2024 08:40 AM SECONDARY Obstructive sleep apnea (adult) (pediatric) ERNESTO ARBOLEDA [place] Mar 14, 2024 08:40 AM SECONDARY Paroxysmal atrial fibrillation ERNESTO ARBOLEDA [place] Mar 14, 2024 08:40 AM SECONDARY Post-traumatic stress disorder, unspecified ERNESTO ARBOLEDA [place] Mar 14, 2024 08:40 AM SECONDARY Pure hyperglyceridemia ERNESTO ARBOLEDA [place] Mar 14, 2024 08:40 AM SECONDARY Transient cerebral ischemic attack, unspecified ERNESTO ARBOLEDA [place] Plan of Treatment: Future Appointments (+ 6 months) and Future Tests (+/- 45 days) The Plan of Treatment section includes future care activities for the patient from all [place] treatmentfacilities. This section includes future appointments and future orders which are active, pending or scheduled. Future Appointments This section includes appointments that were scheduled to occur 6 months from the date of the Encounter, up to a maximum of 20 appointments. The data comes from all [place] treatment facilities. Appointment Date/Time Appointment Type Appointme nt Facility Name Apr 15, 2024 11:00 AM [facility] Apr 20, 2024 02[facility]00 PM [facility] [place] [facility] Apr 22, 2024 10:00 AM AMBULATORY - MEDIC[facility] [place] [facility] Apr 28, 2024 01:00 PM AMBULATORY - PSYCHIATRY [facility] [place] [facility] Apr 28, 2024 01:01 PM AMBULATORY - PS[facility]CHIATRY [facility] [place] [facility] May 11, 2024 01:30 PM AMBULATORY - REHAB MEDICIN [facility] [place] [facility] May 26, 2024 01:30 PM AM[facility]ULATORY - MEDICINE [facility] May 26, 2024 03:00 PM AMBULATORY - PS[facility]CHIATRY [facility] [place] [facility] May 26, 2024 03:01 PM AMBULATORY - PS[facility]CHIATRY [facility] [place] [facility] Jun 22, 2024 01:00 PM AMBULATORY - MEDICINE [facility] [place] Jun 22, 2024 03:00 PM [facility] Active, Pending, and Scheduled Orders This section includes a listing of several types of active, pending, and scheduled orders, including clinic medications orders, diagnostic test orders, procedure orders and consult orders; where the start date of the order is 45 days before the date of the Encounter or 45 days after the date of theEncounter. The data comes from all [place] treatment facilities. Test Date/Time Test Type Test Details Facility Name Feb 26, 2024 12:50 PM Consult Order [facility]-MRI Cons [employer] [facility] Vital Signs: All taken on the encounter date This section contains inpatient and outpatient Vital Signs collected on the date of the Encounter. Date/Time Temperature Pulse Blood Pressure Respiratory Rate SP02 Pain Height Weight Body Mass Index Source Feb 26, 2024 01:11 PM 97.2 56 109/58 94 183.2 26 [facility] Advance Directives: All historical and current Section Date Range: From patient's date of to the date document was created. This section includes ALL of a patient's completed or amended [place] Advance and Rescinded Directives. The entries below indicate that a directive exists for the patient, but an actual copy is not included with this document. The data comes from all [place] facilities. Date Advance Directives Provider Source August 25, 2023 ADVANCE DIRECTIVE MICHELLE LEVINE [facility] Encounter Notes: All associated encounter notes This section contains the clinical notes associated to the Encounter. Date/Time Encounter Note(s) Provider Source Mar 14, 2024 08:41 AM ADDENDUM: LOCAL TITLE: Addendum STANDARD TITLE: ADDENDUM DATE OF NOTE: MAR 14, 2024@08:41:09 ENTRY DATE: MAR 14, 2024@08:41:10 AUTHOR: ERNESTO ARBOLEDA COSIGNER: URGENCY: STATUS: COMPLETED Team: Please send this office visit note and most recent labs and diagnostic studies including TTE and brain MRI to the office of BETINA Ulloa. Thank you. /gurwinder/ ERNESTO ARBOLEDA NP NURSE PRACTITIONER Signed: 03/14/2024 08:41 Receipt Acknowledged By: 03/15/2024 10:02 /gurwinder/ ANNA RUEDA ADVANCE HOLTER TECHNICIAN ======== --- Original Document --- 02/26/24 NURSE PRACTITIONER OUTPATIENT NOTE: PRIMARY CARE VISIT SHANICE YOUNGER, is a 78 yo WHITE MALE who presents at the [place] [facility]. 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 He has since established with a community PCP. Since last visit, he was evaluated by neuropsych testing consistent with dementia versus other major neurocognitive disorder. Neuropsych recommended MRI brain. He has obtained new hearing aids from [place] audiology. He underwent TTE 08/18/2023 which found LVEF 50 to 55% with grade II (moderate) diastolic dysfunction with trace MR and TR. He denies any exertional dyspnea. He underwent PSG in November which found an AHI 20.7 recommended continue with PAP therapy. Today he reports development of bilateral thigh myalgias which resolved after stopping atorvastatin. Recent labs and diagnostic studies were reviewed with the [place] including noting elevated triglycerides to 235 with normal LDL and cholesterol. All medications were reconciled during this visit. HEALTHCARE PROVIDERS: Community PCP: BETINA Ulloa Audiology: [place] Dermatology: [place] MH: [place], Dr. Hernandez Optometry: [place] Pulmonology: Dr. Diana, Kaitlynn Epps NP Social Hx: The is and lives with his . He stopped smoking in 1984 after 30 pack years. He drinks a glass of wine nightly. No MJ. No regular exercise. He leads a sedentary lifestyle. 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 COMBAT SERVICE INDICATED: No MEDICAL HISTORY Active Problem Dementia F03.B4 01/21/2024 LIU HERNANDEZ Long-term current use of anticoagul 08/11/2023 ARI BRONSON Chronic hypoxemic respiratory failu 08/08/2023 ERNESTO ARBOLEDA COPD - Chronic obstructive pulmonar 08/08/2023 ERNESTO ARBOLEDA PAF - Paroxysmal atrial fibrillatio 08/08/2023 ERNESTO ARBOLEDA PTSD - Post-traumatic stress disord 08/08/2023 ERNESTO ARBOLEDA Obstructive sleep apnea G47.33 08/08/2023 ERNESTO ARBOLEDA CKD stage 3 N18.30 08/08/2023 ERNESTO ARBOLEDA FAYE - Generalised anxiety disorder 08/08/2023 ERNESTO ARBOLEDA Cognitive decline R41.89 08/08/2023 ERNESTO ARBOLEDA CAD - Coronary Artery Disease (SCT 08/08/2023 ERNESTO ARBOLEDA Exposure to potentially hazardous s 08/08/2023 ERNESTO ARBOLEDA Glaucoma H40.9 08/08/2023 ERNESTO ARBOLEDA Insomnia G47.00 08/08/2023 ERNESTO ARBOLEDA Bilateral hearing loss R69. 08/08/2023 ERNESTO ARBOLEDA GERD - Gastro-Esophageal Reflux Dis 08/08/2023 ERNESTO ARBOLEDA VITAL SIGNS: Temperature 97.2 F [36.2 C] (02/26/2024 13:11) Blood Pressure 109/58 (02/26/2024 13:11) Pulse 56 (02/26/2024 13:11) Respiration 18 (08/07/2023 15:14) Pain 0 (09/10/2023 11:32) BMI BMI: 26.3 Weight 183.2 lb [83.10 kg] (02/26/2024 13:11) Pulse Oximetry 94% (02/26/2024 13:11) ASSISTIVE DEVICES: None REVIEW OF SYSTEMS: assists with ROS. CONSTITUTIONAL: No fevers, chills, weight loss/gain ENT: No sore throat, sneezing, congestion, rhinorrhea, anosmia, or ageusia. CARDIOVASCULAR: No chest pain, palpitations, or increased pedal edema RESPIRATORY: No SOB, cough, sputum, wheeze. GASTROINTESTINAL: Denies abd pain, N/V/D. No melena or hematochezia. No tenesmus or constipation. GENITOURINARY: No burning micturition. No urinary frequency or urgency. No nocturia. MUSCULOSKELETAL: No myalgias or arthralgias. PSYCHIATRIC: No new anxiety or depression. No sleep disturbance. NEUROLOGIC: No headaches, dizziness, numbness or tingling in the extremities, or unilateral weakness. EXAMINATION General: Older in no obvious distress. Mental Status: Alert and oriented. Head: Normocephalic. Eyes: PERRLA. EOMI. Anicteric sclerae. ENT: Moist oral mucosa. Posterior pharynx unremarkable Neck: Supple. No LAD. No bruit appreciated. Lungs: CTA. Normal chest excursion. No accessory muscle use. CV: Heart tones S1, S2. RRR. No M/G/R. No peripheral edema GI: Abdomen is soft and nontender. No palpable mass. : No CVA tenderness. Ext: No cyanosis or clubbing. No gross deformities. Neuro: CN II through XII grossly intact. Normal speech. Integument: Skin warm and dry. No concerning lesions or rashes. Psych: Normal mood and affect. Normal judgment. ALLERGIES: ========= LISINOPRIL, ATORVASTATIN >> HEALTH MAINTENANCE PREVENTIVE MEDICINE GOALS HIV Screening DUE NOW Mental Health Treatment Plan DUE NOW Influenza Immunization DUE NOW Medication Reconciliation DUE NOW COVID-19 Immunization DUE NOW RHS Screen DUE NOW (Optional) Whole Health Documentation DUE NOW ASSESSMENT/PLAN: Active problems - Computerized Problem List is the source for the following: Dementia: He has been seen in consult by neuropsych testing consistent with dementia or other major neurocognitive disorder. They recommended MRI which will be ordered. I do note a history of TIA. Chronic hypoxemic respiratory failure: COPD - Chronic obstructive pulmonary disease: 2 L O2 dependent at all times although frequently nonadherent according to his . Not using oxygen during the visit. SPO2 ranging from 90 to 97% but mostly around 93%. Has established care with Dr. Diana since moving here from [place]. Continue [facility]. CAD: Long-term use of anticoagulant: PAF - Paroxysmal atrial fibrillation: S/p ablation x2, most recently about a year ago. Maintained on dabigatran 150 mg daily for primary risk reduction, BB and CCB for ventricular rate control. TTE 08/18/2023 which found LVEF 50 to 55% with grade II (moderate) diastolic dysfunction with trace MR and TR. he denies any exertional dyspnea or other anginal equivalent symptoms. Cardiology E-consult recommended echocardiogram and continue current MAT. FAYE - Generalized anxiety disorder: PTSD - Post-traumatic stress disorder: Following with [facility]. Obstructive sleep apnea: PSG in November found AHI 20.7. Recommended continuing CPAP which he endorses using at least 4 hours nightly most of the time. CKD stage 3: Stable. Avoid nephrotoxic agents. Advised to drink plenty of water. Not currently following with nephrology. Bilateral hearing loss: He has since obtained new hearing aids from [place] [facility] and is wearing them today. Reports much improvement. GERD - Gastro-Esophageal Reflux Disease (SCT [id number]): Asymptomatic since starting PPI. Continue omeprazole. Hypertriglyceridemia: Triglycerides noted to be elevated to 235 with normal total cholesterol and LDL. Agrees to start fenofibrate as he was intolerant of atorvastatin. FOLLOW UP: RTC Below & sooner PRN UPCOMING APPOINTMENTS: 03/18/2024 12:30 NHM DENTAL DMD 2 06/22/2024 13:00 CWM/SO/PACT 1 REAL ESTATE AGENCY PRINCIPAL 06/22/2024 15:00 COM CARE-CHIEF WRITER MEDC 09/14/2024 14:30 NHM/OPTOMETRY/MILLER/ 40 minutes spent in patient evaluation, data review, and patient education. All medications were reconciled during this visit. No barriers; Patient understands and agrees to current treatment plan. If pt has any questions, concerns, or changes in current health status he/she will call or come [facility] to the [facility]. Medication Reconciliation: Outpatient: Has the patient been taking medications as documented in the EMLR? YES: The patient has been taking medications as documented in the EMLR. Essential Medication List for Review used to complete this medication reconciliation. INCLUDED IN THIS LIST: Alphabetical list of active outpatient prescriptions dispensed from this [facility] (local) and dispensed from another [place] or [facility] facility (remote) as well as [...] whether with a VA or non-VA provider. /gurwinder/ ERNESTO ARBOLEDA NP NURSE PRACTITIONER Signed: 03/14/2024 08:39 03/15/2024 ADDENDUM STATUS: COMPLETED THIS FUNDS TRANSFER CLERK FAXED OVER OFFICE NOTE, EKG and MRI REPORT TO [place] [phone] MAYUR MOFFETT /gurwinder/ ANNA RUEDA ADVANCE HOLTER TECHNICIAN Signed: 03/15/2024 10:02 ERNESTO ARBOLEDA [place] Feb 26, 2024 01:36 PM PRIMARY CARE NURSE PRACTITIONER OUTPATIENT NOTE: LOCAL TITLE: NURSE PRACTITIONER OUTPATIENT NOTE STANDARD TITLE: PRIMARY CARE NURSE PRACTITIONER OUTPATIENT NOTE DATE OF NOTE: FEB 26, 2024@13:36 ENTRY DATE: FEB 26, 2024@13:36:50 AUTHOR: ERNESTO ARBOLEDA EXP COSIGNER: URGENCY: STATUS: COMPLETED NURSE PRACTITIONER OUTPATIENT NOTE Has ADDENDA PRIMARY CARE VISIT SHANICE YOUNGER, is a 78 yo WHITE MALE who presents at the [place] [facility]. 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 He has since established with a community PCP. Since last visit, he was evaluated by neuropsych testing consistent with dementia versus other major neurocognitive disorder. Neuropsych recommended MRI brain. He has obtained new hearing aids from [place] [facility]. He underwent TTE 08/18/2023 which found LVEF 50 to 55% with grade II (moderate) diastolic dysfunction with trace MR and TR. He denies any exertional dyspnea. He underwent PSG in November which found an AHI 20.7 recommended continue with PAP therapy. Today he reports development of bilateral thigh myalgias which resolved after stopping atorvastatin. Recent labs and diagnostic studies were reviewed with the including noting elevated triglycerides to 235 with normal LDL and cholesterol. All medications were reconciled during this visit. HEALTHCARE PROVIDERS: Community PCP: BETINA Ulloa Audiology: [place] Dermatology: [place] MH: Dr. Anabela NAVA Optometry: [place] Pulmonology: Kaitlynn Muhammad, SETH Social Hx: The is and lives with his . He stopped smoking in 1984 after 30 pack years. He drinks a glass of wine nightly. No MJ. No regular exercise. He leads a sedentary lifestyle. 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 COMBAT SERVICE INDICATED: No MEDICAL HISTORY Active Problem Dementia F03.B4 01/21/2024 LIU HERNANDEZ Long-term current use of anticoagul 08/11/2023 ARI BRONSON Chronic hypoxemic respiratory failu 08/08/2023 ERNESTO ARBOLEDA COPD - Chronic obstructive pulmonar 08/08/2023 ERNESTO ARBOLEDA PAF - Paroxysmal atrial fibrillatio 08/08/2023 ERNESTO ARBOLEDA PTSD - Post-traumatic stress disord 08/08/2023 ERNESTO ARBOLEDA Obstructive sleep apnea G47.33 08/08/2023 ERNESTO ARBOLEDA CKD stage 3 N18.30 08/08/2023 ERNESTO ARBOLEDA FAYE - Generalised anxiety disorder 08/08/2023 ERNESTO ARBOLEDA Cognitive decline R41.89 08/08/2023 ERNESTO ARBOLEDA CAD - Coronary Artery Disease (SCT 08/08/2023 ERNESTO ARBOLEDA Exposure to potentially hazardous s 08/08/2023 ERNESTO ARBOLEDA Glaucoma H40.9 08/08/2023 ERNESTO ARBOLEDA Insomnia G47.00 08/08/2023 ERNESTO ARBOLEDA Bilateral hearing loss R69. 08/08/2023 ERNESTO ARBOLEDA GERD - Gastro-Esophageal Reflux Dis 08/08/2023 ERNESTO ARBOLEDA VITAL SIGNS: Temperature 97.2 F [36.2 C] (02/26/2024 13:11) Blood Pressure 109/58 (02/26/2024 13:11) Pulse 56 (02/26/2024 13:11) Respiration 18 (08/07/2023 15:14) Pain 0 (09/10/2023 11:32) BMI BMI: 26.3 Weight 183.2 lb [83.10 kg] (02/26/2024 13:11) Pulse Oximetry 94% (02/26/2024 13:11) ASSISTIVE DEVICES: None REVIEW OF SYSTEMS: assists with ROS. CONSTITUTIONAL: No fevers, chills, weight loss/gain ENT: No sore throat, sneezing, congestion, rhinorrhea, anosmia, or ageusia. CARDIOVASCULAR: No chest pain, palpitations, or increased pedal edema RESPIRATORY: No SOB, cough, sputum, wheeze. GASTROINTESTINAL: Denies abd pain, N/V/D. No melena or hematochezia. No tenesmus or constipation. GENITOURINARY: No burning micturition. No urinary frequency or urgency. No nocturia. MUSCULOSKELETAL: No myalgias or arthralgias. PSYCHIATRIC: No new anxiety or depression. No sleep disturbance. NEUROLOGIC: No headaches, dizziness, numbness or tingling in the extremities, or unilateral weakness. EXAMINATION General: Older in no obvious distress. Mental Status: Alert and oriented. Head: Normocephalic. Eyes: PERRLA. EOMI. Anicteric sclerae. ENT: Moist oral mucosa. Posterior pharynx unremarkable Neck: Supple. No LAD. No bruit appreciated. Lungs: CTA. Normal chest excursion. No accessory muscle use. CV: Heart tones S1, S2. RRR. No M/G/R. No peripheral edema GI: Abdomen is soft and nontender. No palpable mass. : No CVA tenderness. Ext: No cyanosis or clubbing. No gross deformities. Neuro: CN II through XII grossly intact. Normal speech. Integument: Skin warm and dry. No concerning lesions or rashes. Psych: Normal mood and affect. Normal judgment. ALLERGIES: ========= LISINOPRIL, ATORVASTATIN >> HEALTH MAINTENANCE PREVENTIVE MEDICINE GOALS HIV Screening DUE NOW Mental Health Treatment Plan DUE NOW Influenza Immunization DUE NOW Medication Reconciliation DUE NOW COVID-19 Immunization DUE NOW RHS Screen DUE NOW (Optional) Whole Health Documentation DUE NOW ASSESSMENT/PLAN: Active problems - Computerized Problem List is the source for the following: Dementia: He has been seen in consult by neuropsych testing consistent with dementia or other major neurocognitive disorder. They recommended MRI which will be ordered. I do note a history of TIA. Chronic hypoxemic respiratory failure: COPD - Chronic obstructive pulmonary disease: 2 L O2 dependent at all times although frequently nonadherent according to his . Not using oxygen during the visit. SPO2 ranging from 90 to 97% but mostly around 93%. Has established care with Dr. Diana since moving here from [place]. Continue [place]. CAD: Long-term use of anticoagulant: PAF - Paroxysmal atrial fibrillation: S/p ablation x2, most recently about a year ago. Maintained on dabigatran 150 mg daily for primary risk reduction, BB and CCB for ventricular rate control. TTE 08/18/2023 which found LVEF 50 to 55% with grade II (moderate) diastolic dysfunction with trace MR and TR. he denies any exertional dyspnea or other anginal equivalent symptoms. Cardiology E-consult recommended echocardiogram and continue current MAT. FAYE - Generalized anxiety disorder: PTSD - Post-traumatic stress disorder: Following with [facility]. Obstructive sleep apnea: PSG in November found AHI 20.7. Recommended continuing CPAP which he endorses using at least 4 hours nightly most of the time. CKD stage 3: Stable. Avoid nephrotoxic agents. Advised to drink plenty of water. Not currently following with nephrology. Bilateral hearing loss: He has since obtained new hearing aids from [place] [facility] and is wearing them today. Reports much improvement. GERD - Gastro-Esophageal Reflux Disease ([facility] [id number]): Asymptomatic since starting PPI. Continue omeprazole. Hypertriglyceridemia: Triglycerides noted to be elevated to 235 with normal total cholesterol and LDL. Agrees to start fenofibrate as he was intolerant of atorvastatin. FOLLOW UP: RTC Below & sooner PRN UPCOMING APPOINTMENTS: 03/18/2024 12:30 NHM DENTAL DMD 2 06/22/2024 13:00 CWM/SO/PACT 1 REAL ESTATE AGENCY PRINCIPAL 06/22/2024 15:00 COM CARE-CHIEF WRITER MEDC 09/14/2024 14:30 NHM/OPTOMETRY/MILLER/ 40 minutes spent in patient evaluation, data review, and patient education. All medications were reconciled during this visit. No barriers; Patient understands and agrees to current treatment plan. If pt has any questions, concerns, or changes in current health status he/she will call or come [facility] to the [facility]. Medication Reconciliation: Outpatient: Has the patient been taking medications as documented in the EMLR? YES: The patient has been taking medications as documented in the EMLR. Essential Medication List for Review used to complete this medication reconciliation. INCLUDED IN THIS LIST: Alphabetical list of active outpatient prescriptions dispensed from this [facility] (local) and dispensed from another [place] or [facility] facility (remote) as well as [...] whether with a VA or non-VA provider. /gurwinder/ ERNESTO ARBOLEDA NP NURSE PRACTITIONER Signed: 03/14/2024 08:39 03/14/2024 ADDENDUM STATUS: COMPLETED Team: Please send this office visit note and most recent labs and diagnostic studies including TTE and brain MRI to the office of BETINA Ulloa. Thank you. /charlotte ARBOLEDA NP NURSE PRACTITIONER Signed: 03/14/2024 08:41 Receipt Acknowledged By: 03/15/2024 10:02 /gurwinder/ ANNA RUEDA ADVANCE HOLTER TECHNICIAN 03/15/2024 ADDENDUM STATUS: COMPLETED THIS FUNDS TRANSFER CLERK FAXED OVER OFFICE NOTE, EKG and MRI REPORT TO [place] [phone] MAYUR MOFFETT /gurwinder/ ANNA RUEDA ADVANCE HOLTER TECHNICIAN Signed: 03/15/2024 10:02 ERNESTO ARBOLEDA
--- OUTSIDE RECORDS SUMMARY | 2024-05-13 13:37 | XMS_ITS ---
Author Name [facility] [place] Address [address] [place] [address] Care Team Providers Care Hotel Concierge Name Role Phone ERNESTO ARBOLEDA Primary Care [...] PART A August 12, 2008 PART A [id number] [phone] Dawson YOUNGER PATIENT MEDICARE (WNR) MEDICARE (M) PART B August 12, 2008 PART B [id number] Dawson YOUNGER PATIENT MEDICARE (WNR) MEDICARE (M) PART A August 12, 2008 PART A [id number] [id number] Dawson YOUNGER PATIENT MEDICARE (WNR) MEDICARE (M) PART B August 12, 2008 PART B [id number] [facility] Dawson YOUNGER PATIENT MEDICARE (WNR) MEDICARE (M) PART A August 12, 2008 PART A [id number] Dawson YOUNGER PATIENT MEDICARE (WNR) MEDICARE (M) PART B August 12, 2008 PART B [id number] Dawson YOUNGER PATIENT MEDICARE (WNR) MEDICARE (M) PART B August 12, 2008 PART B [id number] Dawson YOUNGER PATIENT MEDICARE (WNR) MEDICARE (M) PART A August 12, 2008 PART A [id number] Dawson YOUNGER PATIENT MEDICARE (WNR) MEDICARE (M) PART A August 12, 2008 PART A [id number] Dawson YOUNGER PATIENT MEDICARE (WNR) MEDICARE (M) PART B August 12, 2008 PART B [id number] Dawson YOUNGER PATIENT MEDICARE PART D (WNR) PRESCRIPT ION PART D Apr 14, 2015 PART D [id number] Dawson YOUNGER PATIENT UNICARE PREFERRED PROVIDER ORGANIZAT ION (PPO) [facility] N August 12, 2008 [id number] [phone] Dawson YOUNGER PATIENT UNICARE MEDICARE SUPPLEMEN FARHAD [facility] N August 12, 2008 [id number] [phone] Dawson YOUNGER PATIENT UNICARE-G. I.C. MEDICAL EXPENSE (OPT/PROF ) [facility] N August 12, 2008 [id number] [phone] Dawson YOUNGER PATIENT Selected Encounter This section includes the information on record at [place] for the Encounter. Date/Time Encounter Type Encounter Description Reason Provider Source Jan 01, 2024 02:00 PM INTRM OPH EXAM EST PATIENT OPTOMETRY ICD-10-CM 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, right eye, mild stage OSHINSKIE,CELENA ROYER J IHE Encounter Template Text not used by VA Assessments - Encounter Diagnoses This section includes the primary and secondary diagnoses documented for the Encounter. Date/Time Primary/Secondary Diagnosis Diagnosis Name Provider Source Jan 02, 2024 10:53 AM PRIMARY Capslr glaucoma w/pseudxf lens, right eye, mild stage OSHINSKIE,CELENA ROYER J [facility] [place] [facility] Jan 02, 2024 10:53 AM SECONDARY Capslr glaucoma w/pseudxf lens, left eye, mild stage OSHINSKIE,CELENA ROYER J [place] [facility] [place] [facility] Plan of Treatment: Future Appointments (+ [...] Date/Time Appointment Type Appointme nt Facility Name Jan 02, 2024 02:00 PM AMBULATORY - REHAB MEDICIN E [facility] [place] [facility] Jan 21, 2024 02:30 PM AMBULATORY - PSYCHIATRY [facility] [facility] Jan 21, 2024 02:31 PM AMBULATORY - PS[facility]CHIATRY [facility] [facility] Feb 05, 2024 11:00 AM AMBULATORY - REHAB MEDICIN E [facility] [place] [facility] Feb 05, 2024 01:30 PM AMBULATORY - MEDICINE [facility] [facility] Feb 26, 2024 01:00 PM [facility] Apr 15, 2024 11:00 AM AMBULATORY - REHAB MEDICIN E [facility] Apr 20, 2024 02:00 PM AMBULATORY - MEDICINE [facility] [facility] Apr 22, 2024 10:00 AM AMBULATORY - MEDICINE [facility] Apr 28, 2024 01:00 PM AMBULATORY - PSYCHIATRY [facility] Apr 28, 2024 01:01 PM [facility] May 11, 2024 01:30 PM [facility] May 26, 2024 01:30 PM AMBULATORY - MEDICINE ANA Iyer [facility] May 26, 2024 03:00 PM [facility] May 26, 2024 03:01 PM [facility] Jun 22, 2024 01:00 PM [facility] Jun 22, 2024 03:00 PM AMBULATORY - NONE [facility] Active, Pending, and Scheduled Orders This section includes a listing of several types of active, pending, and scheduled orders, including clinic medications orders, diagnostic test orders, procedure orders and consult orders; where the start date of the order is 45 days before the date of the Encounter or 45 days after the date of theEncounter. The data comes from all [place] treatment facilities. Test Date/Time Test Type Test Details Facility Name Dec 12, 2023 11:03 AM Consult Order [facility] Cons On Site Coordinator's Choice [place] Social History: Smoking Status (Most current) and Tobacco Use (All prior to encounter date) This section includes the most current, and the historical, smoking and tobacco- related health factors from the [place] facility where the Encounter took place. Current Smoking Status This section includes the most current smoking, or tobacco-related health factor, from the [place] facility where the Encounter took place. Date/Time Current Smoking Status Comment Noemy esquivel Aug 06, 2023 01:17 PM VA-TOBACCO NEVER USED [facility] Advance Directives: All historical and current Section Date Range: From patient's date of to the date document was created. This section includes ALL of a patient's completed or amended [place] Advance and Rescinded Directives. The entries below indicate that a directive exists for the patient, but an actual copy is not included with this document. The data comes from all [place] facilities. Date Advance Directives Provider Source August 25, 2023 ADVANCE DIRECTIVE MICHELLE LEVINE [facility] Encounter Notes: All associated encounter notes This section contains the clinical notes associated to the Encounter. Date/Time Encounter Note(s) Provider Source Jan 01, 2024 01:59 PM OPTOMETRY NOTE: LOCAL TITLE: OPTOMETRY NOTE STANDARD TITLE: OPTOMETRY NOTE DATE OF NOTE: JAN 01, 2024@13:59 ENTRY DATE: JAN 01, 2024@13:59:46 AUTHOR: JOSE FISHER EXP COSIGNER: URGENCY: STATUS: COMPLETED 78 yo MALE with PXF glaucoma OU returns for IOP check and VF. taking latanoprost OU qhs and brimondine OD only and only qam per recommendations at [facility]. He has move here permanently now. Took latanoprost last night but did not take brimonidine this AM Active Problem Long-term current use of anticoagul [...] - Gastro-Esophageal Reflux Dis 08/08/2023 ERNESTO ARBOLEDA Active Outpatient Medications (including Supplies): Active Outpatient Medications Status 1) ALBUTEROL 90MCG (CFC-F) 200D ORAL INHL INHALE 2 PUFFS ACTIVE BY MOUTH FOUR TIMES DAILY NEEDED FOR BRONCHOSPASM 2) ATORVASTATIN CALCIUM 80MG TAB TAKE ONE TABLET BY ACTIVE MOUTH ONCE DAILY FOR HIGH CHOLESTEROL 3) CARBOXYMETHYLCELLULOSE NA 0.5% OPH SOLN INSTILL 1 ACTIVE DROP INTO EACH EYE FOUR TIMES A DAY FOR DRY EYE 4) DABIGATRAN ETEXILATE 150MG ORAL CAP TAKE ONE CAPSULE ACTIVE BY MOUTH TWICE DAILY TO PREVENT BLOOD CLOTS (ONCE OPENED, THE MEDICATION MUST BE USED WITHIN 4 MONTHS) 5) DILTIAZEM (EQV-CARDIZEM) 240MG 24HR CAP TAKE ONE ACTIVE CAPSULE BY MOUTH ONCE DAILY FOR ATRIAL FIBRILLATION 6) EZETIMIBE 10MG TAB TAKE ONE TABLET BY MOUTH ONCE ACTIVE (S) DAILY TO LOWER CHOLESTEROL 7) FUROSEMIDE 20MG TAB TAKE ONE TABLET BY MOUTH ONCE ACTIVE DAILY NEEDED FOR VISIBLE WATER RETENTION TO REMOVE FLUID/CONTROL BLOOD PRESSURE 8) LATANOPROST 0.005% OPH SOLN INSTILL 1 DROP INTO EACH ACTIVE EYE AT BEDTIME FOR INCREASED PRESSURE IN THE EYE 9) METOPROLOL SUCCINATE 50MG SA TAB TAKE ONE TABLET BY ACTIVE MOUTH ONCE DAILY FOR BLOOD PRESSURE/HEART 10) OMEPRAZOLE 20MG EC CAP TAKE ONE CAPSULE BY MOUTH ACTIVE EVERY MORNING 30 MINUTES BEFORE BREAKFAST FOR GASTROESOPHAGEAL REFLUX DISEASE 11) PRIMIDONE 50MG TAB TAKE ONE TABLET BY MOUTH ONCE ACTIVE DAILY FOR SIMPLE SEIZURE 12) SERTRALINE HCL 100MG TAB TAKE ONE TABLET BY MOUTH ACTIVE ONCE DAILY FOR POSTTRAUMATIC STRESS SYNDROME 13) TRAZODONE HCL 100MG TAB TAKE 1/2 - 1 TABLET BY MOUTH ACTIVE AT BEDTIME NEEDED FOR INSOMNIA ASSOCIATED WITH DEPRESSION Pending Outpatient Medications Status 1) BRIMONIDINE TARTRATE 0.2% OPH SOLN INSTILL 1 DROP PENDING INTO THE RIGHT EYE TWICE DAILY FOR GLAUCOMA 14 Total Medications allergies: LISINOPRIL HEMOGLOBIN A1C TREND Collection DT Spec HGBA1c 11/07/2023 13:19 BLOOD 5.9 H VA with OD 20/20-2 OS 20/20 slit lamp Lids: lower lid telangiectasia with capped MG's OU Conj: pinguecula t/n, trace injection t/n OU Cornea: 1+ inferior spk OU (-) k spindle OU AC: 4x4 OU Iris: flat and clear (-)TID OU Lens: PCIOL well centered and clear centrally OU s/p YAG OU cornea clear no K spindle AC D and Q OU lids/lashes telangectasias OU iris flat, blue OU no tids OU conj bulbar pinguecula N and T OU palpebral mild erythema OU angles gr 4 IOP OD 18 OS 13 time: 2:20 pm VF performed today shows inferior arcuate OD and superior arcuate OS that appear mildly progressive compared to last VF in [place] [facility] A 1) 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 P 1) Increase brimondine to bid OD only and continue latanoprost OU qhs RTC one months for IOP check. Written instructions given to pt Not assessed today: Partial thickness macular hole OS, trace early dry AMD OD Dry eyes OU Refractive error. Glaucoma: Patient was educated regarding glaucoma/glaucoma suspect [...] the patient's ability to participate in testing. med reconciliation: All Ophthalmic medications were reconciled ( x ) ( ) pt is not taking any ophthalmic medications ( ) the following ophthalmic meds were discontinued: pt deferred receiving list of medications Medication Reconciliation: Outpatient: Has the patient been [...] (Tool #5) FACILITY ALLERGY/ADR -------- JYOTI HESS [facility] LISINOP[facility]IL [place] [facility] LISINOPRIL Med. Reconciliation (Tool #1) INCLUDED [...] display of VA prescriptions dispensed from another VA or DoD facility (remote) is limited to active outpatient prescription entries matched to National Drug File at the originating site and may not include some items such as investigational drugs, compounds, etc. NOT INCLUDED IN THIS LIST: Medications self-entered by the patient into personal health records (i.e. [employer]) are NOT included in this list. Non-VA medications documented outside this [place], remote inpatient orders (regardless of status) and remote clinic medications are NOT included in this list. The patient and provider must always discuss medications the patient is taking, regardless of where the medication was dispensed or obtained. OUTPT ALBUTEROL 90MCG (CFC-F) 200D ORAL INHL (Status = Active) INHALE 2 PUFFS BY MOUTH FOUR TIMES DAILY NEEDED FOR BRONCHOSPASM Rx# [id number] Last Released: 11/12/23 Qty/Days Supply: Rx Expiration Date: 08/07/24 Refills Remainin Indication: FOR BRONCHOSPASM Remote ATORVASTATIN CA 80MG TAB TAKE ONE-HALF TABLET BY MOUTH EVERY DAY FOR CHOLESTEROL Last Filled: 11/10/23 (Active at [facility]) Rx Expiration Date: 06/30/24 Days Supply: 90 OUTPT ATORVASTATIN CALCIUM 80MG TAB (Status = Active) TAKE ONE TABLET BY MOUTH ONCE DAILY FOR HIGH CHOLESTEROL Rx# [id number] Last Released: 08/13/23 Qty/Days Supply: Rx Expiration Date: 08/08/24 Refills Remainin Indication: FOR HIGH CHOLESTEROL OUTPT BRIMONIDINE TARTRATE 0.2% OPH SOLN (Status = Discontinued) INSTILL 1 DROP INTO THE RIGHT EYE EVERY MORNING FOR INCREASED PRESSURE IN THE EYE FOR GLAUCOMA Rx# [id number] Last Released: 11/21/23 Qty/Days Supply: Rx Expiration Date: 11/14/24 Refills Remainin Indication: FOR INCREASED PRESSURE IN THE EYE OUTPT BRIMONIDINE TARTRATE 0.2% OPH SOLN (Status = Pending) INSTILL ONE DROP INTO THE RIGHT EYE TWICE DAILY FOR GLAUCOMA Login Date: 01/01/24 Qty/Days Supply: Refills Ordered: 5 Remote BRIMONIDINE TARTRATE 0.2% SOLN,OPH INSTILL 1 DROP INTO RIGHT EYE EVERY MORNING FOR GLAUCOMA Last Filled: 06/16/23 (Active at [facility]) Rx Expiration Date: 03/28/24 Days Supply: 90 OUTPT CARBOXYMETHYLCELLULOSE NA 0.5% OPH SOLN (Status = Active) INSTILL 1 DROP INTO EACH EYE FOUR TIMES A DAY FOR DRY EYE Rx# [id number] Last Released: 11/21/23 Qty/Days Supply: Rx Expiration Date: 11/14/24 Refills Remainin Indication: FOR DRY EYE OUTPT DABIGATRAN ETEXILATE 150MG ORAL CAP (Status = Active) TAKE ONE CAPSULE BY MOUTH TWICE DAILY TO PREVENT BLOOD CLOTS (ONCE OPENED, THE MEDICATION MUST BE USED WITHIN 4 MONTHS) Rx# [id number] Last Released: 11/12/23 Qty/Days Supply: 180/ Rx Expiration Date: 08/13/24 Refills Remainin Indication: TO PREVENT BLOOD CLOTS OUTPT DILTIAZEM (EQV-CARDIZEM) 240MG 24HR CAP (Status = Active) TAKE ONE CAPSULE BY MOUTH ONCE DAILY FOR ATRIAL FIBRILLATION Rx# [id number] Last Released: 11/05/23 Qty/Days Supply: Rx Expiration Date: 08/07/24 Refills Remainin Indication: FOR ATRIAL FIBRILLATION OUTPT DOXYCYCLINE HYCLATE 100MG TAB (Status = ) TAKE ONE TABLET BY MOUTH TWICE DAILY UPPER RESPIRATORY INFECTION Rx# [id number] Last Released: 10/30/23 Qty/Days Supply: 25/10 Rx Expiration Date: 11/29/23 Refills Remainin Indication: UPPER RESPIRATORY INFECTION OUTPT EZETIMIBE 10MG TAB (Status = Active/Suspended) TAKE ONE TABLET BY MOUTH ONCE DAILY TO LOWER CHOLESTEROL Rx# [id number] Last Released: 11/12/23 Qty/Days Supply: Rx Expiration Date: 08/07/24 Refills Remainin Indication: FOR HIGH CHOLESTEROL OUTPT FUROSEMIDE 20MG TAB (Status = Active) TAKE ONE TABLET BY MOUTH ONCE DAILY NEEDED FOR VISIBLE WATER RETENTION TO REMOVE FLUID/CONTROL BLOOD PRESSURE Rx# [id number] Last Released: 11/12/23 Qty/Days Supply: Rx Expiration Date: 08/08/24 Refills Remainin Indication: FOR VISIBLE WATER RETENTION Remote KETOCONAZOLE 2% SHAMPOO USE SMALL AMOUNT ON SCALP FRI,FRI AND FRIDAY SEBORRHEIC DERMATITIS LATHER, APPLY TO SCALP, LEAVE ON FOR 5 MINUTES, THEN WASH OFF. DO THIS THREE TIMES PER WEEK. Last Filled: 12/22/23 (Active at [facility]) Rx Expiration Date: 03/31/24 Days Supply: 30 OUTPT LATANOPROST 0.005% OPH SOLN (Status = Active) INSTILL 1 DROP INTO EACH EYE AT BEDTIME FOR INCREASED PRESSURE IN THE EYE Rx# [id number] Last Released: 11/19/23 Qty/Days Supply: 7 Rx Expiration Date: 11/14/24 Refills Remainin Indication: FOR INCREASED PRESSURE IN THE EYE OUTPT METOPROLOL SUCCINATE 50MG SA TAB (Status = Active) TAKE ONE TABLET BY MOUTH ONCE DAILY FOR BLOOD PRESSURE/HEART Rx# [id number] Last Released: 11/12/23 Qty/Days Supply: Rx Expiration Date: 08/08/24 Refills Remainin Indication: FOR HIGH BLOOD PRESSURE Remote METOPROLOL TARTRATE 50MG TAB TAKE ONE-HALF TABLET BY MOUTH TWICE A DAY FOR HEART AND BLOOD PRESSURE Last Filled: 11/10/23 (Active at [facility]) Rx Expiration Date: 06/30/24 Days Supply: 90 Remote OMEPRAZOLE 20MG CAP,EC TAKE ONE CAPSULE BY MOUTH EVERY DAY FOR STOMACH Last Filled: 07/30/23 (Active at [facility]) Rx Expiration Date: 06/30/24 Days Supply: 90 OUTPT OMEPRAZOLE 20MG EC CAP (Status = Active) TAKE ONE CAPSULE BY MOUTH EVERY MORNING 30 MINUTES BEFORE BREAKFAST FOR GASTROESOPHAGEAL REFLUX DISEASE Rx# [id number] Last Released: 11/12/23 Qty/Days Supply: Rx Expiration Date: 08/08/24 Refills Remainin Indication: FOR GASTROESOPHAGEAL REFLUX DISEASE OUTPT PRIMIDONE 50MG TAB (Status = Active) TAKE ONE TABLET BY MOUTH ONCE DAILY FOR SIMPLE SEIZURE Rx# [id number] Last Released: 11/12/23 Qty/Days Supply: Rx Expiration Date: 08/08/24 Refills Remainin Indication: FOR SIMPLE SEIZURE Remote PRIMIDONE 50MG TAB TAKE ONE TABLET BY MOUTH THREE TIMES A DAY FOR TREMORS Last Filled: 07/30/23 (Active at [facility]) Rx Expiration Date: 06/30/24 Days Supply: 90 OUTPT QUETIAPINE FUMARATE 100MG TAB (Status = ) TAKE ONE TABLET BY MOUTH AT BEDTIME FOR ANXIETY Rx# [id number] Last Released: 10/30/23 Qty/Days Supply: Rx Expiration Date: 11/29/23 Refills Remainin Indication: FOR ANXIETY Remote QUETIAPINE FUMARATE 200MG TAB TAKE ONE-HALF TABLET BY MOUTH AT BEDTIME FOR ANXIETY Last Filled: 07/01/23 (Active at [facility]) Rx Expiration Date: 04/23/24 Days Supply: 30 OUTPT SERTRALINE HCL 100MG TAB (Status = Active) TAKE ONE TABLET BY MOUTH ONCE DAILY FOR POSTTRAUMATIC STRESS SYNDROME Rx# [id number] Last Released: 11/12/23 Qty/Days Supply: Rx Expiration Date: 08/08/24 Refills Remainin Indication: FOR POSTTRAUMATIC STRESS SYNDROME OUTPT TRAZODONE HCL 100MG TAB (Status = Active) TAKE 1/2 - 1 TABLET BY MOUTH AT BEDTIME NEEDED FOR INSOMNIA ASSOCIATED WITH DEPRESSION Rx# [id number] Last Released: 11/14/23 Qty/Days Supply: Rx Expiration Date: 11/13/24 Refills Remainin Indication: FOR INSOMNIA ASSOCIATED WITH DEPRESSION SUPPLIES PHARMACY TERMS AND POSSIBLE PATIENT ACTIONS INPT = [place] inpatient order IV = [place] intravenous medication OUTPT = [place] outpatient prescription PHARMACY POSSIBLE PATIENT TERMS EXPLANATION ACTIONS -------- - ACTIVE A prescription that can be If you have refills, filled at the local [place] pharmacy. you may request a refill of this prescription from your [place] pharmacy. CLINIC A medication you received during If you have questions a visit to a [place] clinic or about this medication emergency department. contact your [place] healthcare team. DISCONTINUED A prescription your provider has Contact your [place] stopped. It is no longer healthcare team if you available to be sent to you or need more of this picked up at the [place] pharmacy medication. window. A prescription which is [...] the VA. Or, it may be an ucoj-lju-czszzti (OTC), herbal, dietary supplements or sample medication. [...] ==== /gurwinder/ Jose Fisher OD Fee Basis Desktop Architect Signed: 01/01/2024 15:45 JOSE FISHER [place] [facility]
--- OUTSIDE RECORDS SUMMARY | 2024-05-13 13:37 | XMS_ITS ---
Author Name [facility] [place] [facility] [place] Address [address] [place] [address] Care Team Providers Care Refinisher Name Role Phone ERNESTO ARBOLEDA Primary Care [...] PART B August 12, 2008 PART B [id number] Dawson YOUNGER PATIENT MEDICARE (WNR) MEDICARE (M) PART A August 12, 2008 PART A [id number] [phone] [id number] Dawson YOUNGER PATIENT MEDICARE (WNR) MEDICARE (M) PART A August 12, 2008 PART A [id number] Dawson YOUNGER PATIENT MEDICARE (WNR) MEDICARE (M) PART B August 12, 2008 PART B [id number] [phone] [id number] Dawson YOUNGER PATIENT MEDICARE (WNR) MEDICARE (M) PART B August 12, 2008 PART B [id number] Dawson YOUNGER PATIENT MEDICARE (WNR) MEDICARE (M) PART A August 12, 2008 PART A [id number] [phone] Dawson YOUNGER PATIENT MEDICARE (WNR) MEDICARE (M) PART B August 12, 2008 PART B [id number] Dawson YOUNGER PATIENT MEDICARE (WNR) MEDICARE (M) PART B August 12, 2008 PART B [id number] Dawson YOUNGER PATIENT MEDICARE (WNR) MEDICARE (M) PART A August 12, 2008 PART A [id number] [id number] [id number] Dawson YOUNGER PATIENT MEDICARE (WNR) MEDICARE (M) PART A August 12, 2008 PART A [id number] Dawson YOUNGER PATIENT MEDICARE PART D (WNR) PRESCRIPT ION PART D Apr 14, 2015 PART D [id number] Dawson YOUNGER PATIENT UNICARE PREFERRED PROVIDER ORGANIZAT ION (PPO) [facility] IN[facility] N August 12, 2008 [id number] [phone] Dawson YOUNGER PATIENT UNICARE MEDICARE SUPPLEMEN FARHAD [facility] IN[facility] N August 12, 2008 [id number] [phone] Dawson YOUNGER PATIENT UNICARE-G. I.C. MEDICAL EXPENSE (OPT/PROF ) [facility] INDEM N August 12, 2008 [id number] Dawson YOUNGER PATIENT Selected Encounter This section includes the information on record at [place] for the Encounter. Date/Time Encounter Type Encounter Description Reason Pro vider Source Apr 23, 2024 03:02 PM Outpatient Encounter COMMUNITY CARE CONSULT IHE Encounter Template Text not used by VA Plan of Treatment: Future Appointments (+ 6 months) and Future Tests (+/- 45 days) The Plan of Treatment section includes future care activities for the patient [facility] [place] [facility] This section includes future appointments and [...] 28, 2024 01:00 PM AMBULATORY - [place]ATRY [place] [facility] [place] [facility] Apr 28, 2024 01:01 PM AMBULATORY - [place]ATRY [place] [facility] [place] [facility] May 11, 2024 01:30 PM AMBULATORY - REHAB MEDICIN E [place] [facility] [place] [facility] May 26, 2024 01:30 PM AMBULATORY - MEDICINE [facility] May 26, 2024 03:00 PM AMBULATORY - [place]IATRY [place] [facility] [place] [facility] May 26, 2024 03:01 PM AMBULATORY - PS[place]IATRY [place] [facility] [place] [facility] Jun 22, 2024 01:00 PM AMBULATORY - MEDICINE [facility] [place] Jun 22, 2024 03:00 PM AMBULATORY - NONE [place] [facility] [place] [facility] Sep 14, 2024 02:30 PM [facility] [facility] [place] [facility] Social History: Smoking Status (Most current) and [...] 06, 2023 01:17 PM [facility]TO[facility]ACCO [facility] Advance Directives: All historical and current [...] August 25, 2023 ADVANCE DIRECTIVE MICHELLE LEVINE [facility] Encounter Notes: All associated encounter notes This section contains the clinical notes associated to the Encounter. 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 Established with [facility]. CCP missed end date of previous consult. alert to PACT-please enter new CC pulm consult if in agreement. 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 Consult held for provider review and signature if appropriate. /gurwinder/ QUANG STAHL REGISTERED NURSE Signed: 04/23/2024 15:24 MIRNA [facility]ATORRE [facility]
--- OUTSIDE RECORDS SUMMARY | 2024-05-13 13:37 | XMS_ITS | Encounter Summary ---
Author Name [facility] Organization [facility] [place] Address [address] [place] [address] Care Team Providers Care Soil Technician Name Role Phone ERNESTO ARBOLEDA Primary Care [...] PART B August 12, 2008 PART B [id number] Dawson YOUNGER PATIENT MEDICARE (WNR) MEDICARE (M) PART A August 12, 2008 PART A [id number] Dawson YOUNGER PATIENT MEDICARE (WNR) MEDICARE (M) PART B August 12, 2008 PART B [id number] Dawson YOUNGER PATIENT MEDICARE (WNR) MEDICARE (M) PART B August 12, 2008 PART B [id number] Dawson YOUNGER PATIENT MEDICARE (WNR) MEDICARE (M) PART A August 12, 2008 PART A [id number] Dawson YOUNGER PATIENT MEDICARE (WNR) MEDICARE (M) PART B August 12, 2008 PART B [id number] [phone] aDwson YOUNGER PATIENT MEDICARE (WNR) MEDICARE (M) PART A August 12, 2008 PART A [id number] [facility] [phone] Dawson YOUNGER PATIENT MEDICARE (WNR) MEDICARE (M) PART B August 12, 2008 PART B [id number] [facility] [phone] Dawson YOUNGER PATIENT MEDICARE (WNR) MEDICARE (M) PART A August 12, 2008 PART A [id number] Dawson YOUNGER PATIENT MEDICARE (WNR) MEDICARE (M) PART A August 12, 2008 PART A [id number] Dawson YOUNGER PATIENT MEDICARE PART D (WNR) PRESCRIPT ION PART D Apr 14, 2015 PART D [id number] Dawson YOUNGER PATIENT UNICARE PREFERRED PROVIDER ORGANIZAT ION (PPO) [facility] IN[facility] N August 12, 2008 [id number] Dawson YOUNGER PATIENT UNICARE MEDICARE SUPPLEMEN FARHAD [facility] IN[facility] N August 12, 2008 [id number] [phone] Dawson YOUNGER PATIENT UNICARE-G. I.C. MEDICAL EXPENSE (OPT/PROF ) [facility] IN[facility] N August 12, 2008 [id number] Dawson YOUNGER PATIENT Selected Encounter This section includes the information on record at [place] for the Encounter. Date/Time Encounter Type Encounter Description Reason Provider Source Oct 30, 2023 02:30 PM OFFICE O/P EST LOW 20 MIN PRIMARY CARE/MEDICINE ICD-10-CM J96.11 Chronic respiratory failure with hypoxia ERNESTO ARBOLEDA [facility] Encounter Template Text not used by [place] Assessments - Encounter Diagnoses This section includes the primary and secondary diagnoses documented for the Encounter. Date/Time Primary/Secondary Diagnosis Diagnosis Name Provider Source Nov 23, 2023 11:29 AM PRIMARY Chronic respiratory failure with hypoxia ERNESTO ARBOLEDA [facility] Nov 23, 2023 11:29 AM SECONDARY Athscl heart disease of [place] coronary artery w/o ang pctrs ERNESTO ARBOLEDA [facility] Nov 23, 2023 11:29 AM SECONDARY Chronic kidney disease, stage 3 unspecified ERNESTO ARBOLEDA [facility] Nov 23, 2023 11:29 AM SECONDARY Chronic obstructive pulmonary disease, unspecified ERNESTO ARBOLEDA [facility] Nov 23, 2023 11:29 AM SECONDARY Gastro-esophageal reflux disease without esophagitis ERNESTO ARBOLEDA [place] Nov 23, 2023 11:29 AM SECONDARY Generalized anxiety disorder ERNESTO ARBOLEDA [facility] Nov 23, 2023 11:29 AM SECONDARY Paroxysmal atrial fibrillation ERNESTO ARBOLEDA [facility] Nov 23, 2023 11:29 AM SECONDARY Post-traumatic stress disorder, unspecified ERNESTO ARBOLEDA [facility] [facility] Plan of Treatment: Future Appointments (+ 6 months) and Future Tests (+/- 45 days) The Plan of Treatment section includes future care activities for the patient [facility] This section includes future appointments and future orders which are active, pending or scheduled. Future Appointments This section includes appointments that were scheduled to occur 6 months from the date of the Encounter, up to a maximum of 20 appointments. The data comes from all [place] treatment facilities. Appointment Date/Time Appointment Type Appointme nt Facility Name Nov 07, 2023 01:00 PM AMBULATORY - REHAB MEDICIN E [facility] Nov 13, 2023 10:00 AM AMBULATORY - [facility]IATRY [facility] [place] [facility] Nov 13, 2023 02:00 PM AMBULATORY - MEDICINE [facility] [place] [facility] Nov 14, 2023 01:00 PM AMBULATORY - MEDICINE [facility] [place] [facility] Nov 14, 2023 02:00 PM AMBULATORY - MEDICINE [facility] [place] [facility] Dec 01, 2023 08:30 AM AMBULATORY - PS[facility]CHIATRY [facility] [place] [facility] Dec 09, 2023 03:00 PM AMBULATORY - [facility]ATRY [facility] [place] [facility] Dec 25, 2023 11:00 AM AMBULATORY - PS[facility]ATRY [facility] [place] [facility] Jan 01, 2024 01:30 PM AMBULATORY - MEDICINE [facility] [place] [facility] Jan 01, 2024 02:00 PM AMBULATORY - MEDICINE [facility] [place] [facility] Jan 02, 2024 02:00 PM AMBULATORY - REHAB MEDICIN E [facility] [place] [facility] Jan 21, 2024 02:30 PM AMBULATORY - PS[facility]CHIATRY [facility] [place] [facility] Jan 21, 2024 02:31 PM AMBULATORY - PS[facility]CHIATRY [facility] [place] [facility] Feb 05, 2024 11:00 AM AMBULATORY - REHAB MEDICIN E [facility] [place] [facility] Feb 05, 2024 01:30 PM AMBULATORY - MEDICINE [facility] [place] [facility] Feb 26, 2024 01:00 PM AMBULATORY - MEDICINE [facility] Apr 15, 2024 11:00 AM AMBULATORY - REHAB MEDICIN E [facility] [place] [facility] Apr 20, 2024 02:00 PM AMBULATORY - MEDICINE [facility] [place] [facility] Apr 22, 2024 10:00 AM AMBULATORY - MEDICINE [facility] [place] [facility] Apr 28, 2024 01:00 PM AMBULATORY - PSYCHIATRY [facility] [place] [facility] Active, Pending, and Scheduled Orders This section includes a listing of several types of active, pending, and scheduled orders, including clinic medications orders, diagnostic test orders, procedure orders and consult orders; where the start date of the order is 45 days before the date of the Encounter or 45 days after the date of theEncounter. The data comes from all [place] treatment facilities. Test Date/Time Test Type Test Details Facility Name Oct 02, 2023 11:26 AM Consult Order COMMUNITY CARE-DENTAL GENERAL Cons Physical Laboratory Assistant's Choice [facility] [place] [facility] Dec 12, 2023 11:03 AM Consult Order COMMUNITY CARE-SLEEP MEDICINE Cons Physical Laboratory Assistant's Choice [facility] [facility] Lab Results: +/- 30 days of the [...] Range Comment Nov 07, 2023 01:19 PM [facility] MICROALBUMIN CREATININE RATIO PANEL Spe cimen Type: URINE No comment entered. Ordering Provider: ERNESTO ARBOLEDA Report Released Date/Time: August 17, 2023 01:25 PM Reporting Lab: [address] [address] Performing Lab: [address] [address] MICROALBUMIN/C REATININE RATIO canc mg/g 0-29.9 MICROALBUMIN,Q UANTITATIVE < 0.5 mg/dL RR UNAVAIL CREATININE URINE 128.85 mg/dL Nov 07, 2023 01:19 PM [facility] URINALYSIS Specimen Type: URINE Comment: If Glucose = >500 and Ketones are positive, please alert the Physician. Ordering Provider: ERNESTO ARBOLEDA Report Released Date/Time: August 17, 2023 01:25 PM Reporting Lab: [address] [address] Performing Lab: [address] [address] UA COLOR Yellow Yellow UA APPEARANCE Turbid Clear UA GLUCOSE NEGATIVE mg/dL Negative UA KETONES NEGATIVE mg/dL Negative UA BLOOD NEGATIVE mg/dL Negative UA PROTEIN NEGATIVE mg/dL Negative UA NITRITE NEGATIVE mg/dL Negative UA BILIRUBIN NEGATIVE mg/dL Negative UA SPECIFIC GRAVITY 1.024 H 1.016-1.022 UA pH 6.0 5.0-9.0 UA UROBILINOGEN <2.0 mg/dL <2.0 UA LEUKOCYTE NEGATIVE Negative Nov 07, 2023 01:19 PM [facility] LIVER FUNCTION Specimen Type: SERUM No comment entered. Ordering Provider: ERNESTO ARBOLEDA Report Released Date/Time: August 17, 2023 01:25 PM Reporting Lab: [address] [address] Performing Lab: [address] [address] PROTEIN,TOTAL 6.4 g/dL 6.0-8.3 ALBUMIN 3.3 g/dL L 3.5-5.0 ALKALINE PHOSPHATASE 88 U/L 40-150 AST 16 U/L 5-34 ALT 24 U/L BILIRUBIN, TOTAL 0.4 mg/dL 0.2-1.2 Nov 07, 2023 01:19 PM [place] CALCIUM Specimen Type: SERUM No comment entered. Ordering Provider: ERNESTO ARBOLEDA Report Released Date/Time: August 17, 2023 01:25 PM Reporting [facility]: [facility] [address] [address] Performing Lab: [address] [address] CALCIUM 8.8 mg/dL 8.5-10.2 Nov 07, 2023 01:19 PM [place] LIPID PANEL, NON FASTING Specimen Type: SERUM No comment entered. Ordering Provider: ERNESTO ARBOLEDA Report Released Date/Time: August 17, 2023 01:25 PM Reporting Lab: [facility] [address] [address] Performing Lab: [facility] [address] [address] CHOLESTEROL 134 mg/dL TRIGLYCERIDE 235 mg/dL H 0-150 LDL calculated 41 mg/dL 0-129 CHOL/HDL 2.9 HDL CHOLESTEROL 46 mg/dL 40-60 Nov 07, 2023 01:19 PM [facility] TSH Specimen Type: SERUM No comment entered. Ordering Provider: ERNESTO ARBOLEDA Report Released Date/Time: August 17, 2023 01:25 PM Reporting Lab: [facility] [address] [address] Performing Lab: [address] [address] TSH 1.16 u[IU]/mL 0.35-5.00 Nov 07, 2023 01:19 PM [facility] HEMOGLOBIN A1C PANEL Specimen Type: BLOOD Comment: [...] August 17, 2023 01:25 PM Reporting Lab: [address] [address] Performing Lab: [address] [address] HEMOGLOBIN A1C 5.9 H 4.0-5.6 Nov 07, 2023 01:19 PM [facility] MAGNESIUM Specimen Type: SERUM No comment entered. Ordering Provider: ERNESTO ARBOLEDA Report Released Date/Time: August 17, 2023 01:25 PM Reporting Lab: [address] [address] Performing Lab: [address] [address] MAGNESIUM 1.9 mg/dL 1.6-2.6 Nov 07, 2023 01:19 PM [facility] VITAMIN D (25-OH) Specimen Type: SERUM No comment entered. Ordering Provider: ERNESTO ARBOLEDA Report Released Date/Time: August 17, 2023 01:25 PM Reporting Lab: [address] [address] Performing Lab: [address] [address] VITAMIN D (25-OH) 28 ng/mL 20-50 Nov 07, 2023 01:19 PM [facility] VITAMIN B12 Specimen Type: SERUM No comment entered. Ordering Provider: ERNESTO ARBOLEDA Report Released Date/Time: August 17, 2023 01:25 PM Reporting Lab: [address] [address] Performing Lab: [address] [address] VITAMIN B12 424 pg/mL 200-900 Nov 07, 2023 01:19 PM [facility] PT & INR (PROTIME) Specimen Type: PLASMA No comment entered. Ordering Provider: ERNESTO ARBOLEDA Report Released Date/Time: August 17, 2023 01:25 PM Reporting Lab: [address] [address] Performing Lab: [address] [address] INR 1.1 PROTIME 11.9 s 10.0-13.1 Nov 07, 2023 01:19 PM [facility] BASIC METABOLIC PANEL (non-fasting) Spe cimen Type: SERUM No comment entered. Ordering Provider: ERNESTO ARBOLEDA Report Released Date/Time: August 17, 2023 01:25 PM Reporting Lab: [address] [address] Performing Lab: [address] [address] UREA NITROGEN 19 mg/dL 7-25 GLUCOSE 99 mg/dL 65-100 SODIUM 139 mmol/L 135-145 POTASSIUM 4.3 mmol/L 3.5-5.0 CHLORIDE 105 mmol/L 100-110 CO2 29 meq/L 20-30 CREATININE, Serum 1.05 mg/dL 0.50-1.40 eGFR(CKD-EPI 2020) 72 mL/min >60 Nov 07, 2023 01:19 PM [facility] CBC AND DIFF (AUTO) Specimen Type: BLOOD No comment entered. Ordering Provider: ERNESTO ARBOLEDA Report Released Date/Time: August 17, 2023 01:25 PM Reporting Lab: [address] [address] Performing Lab: [address] [address] WBC 6.90 10*3/uL 4.50-11.00 RBC 4.40 10*6/uL [...] 10*3/uL 0.00-0.00 Nov 07, 2023 01:19 PM [facility] MICROSCOPIC AUTOMATED, URINE Specimen Type: URINE Comment: If Glucose = >500 and Ketones are positive, please alert the Physician. Ordering Provider: ERNESTO ARBOLEDA Report Released Date/Time: August 17, 2023 01:25 PM Reporting Lab: [address] [address] Performing Lab: [address] [address] UA WBC 0-5 /[HPF] 0-5 UA RBC 0-2 /[HPF] 0-3 UA AMORPHOUS CRYSTALS FEW /[HPF] Not Established Advance Directives: All historical and current Section Date Range: From patient's date of to the date document was created. This section includes ALL of a patient's completed or amended [place] Advance and Rescinded Directives. The entries below indicate that a directive exists for the patient, but an actual copy is not included with this document. The data comes from all [place] facilities. Date Advance Directives Provider Source August 25, 2023 ADVANCE DIRECTIVE MICHELLE LEVINE [facility] Encounter Notes: All associated encounter notes This section contains the clinical notes associated to the Encounter. Date/Time Encounter Note(s) Provider Source Oct 30, 2023 03:25 PM PRIMARY CARE NURSE PRACTITIONER OUTPATIENT NOTE: LOCAL TITLE: NURSE PRACTITIONER OUTPATIENT NOTE STANDARD TITLE: PRIMARY CARE NURSE PRACTITIONER OUTPATIENT NOTE DATE OF NOTE: OCT 30, 2023@15:25 ENTRY DATE: OCT 30, 2023@15:25:08 AUTHOR: ERNESTO ARBOLEDA COSIGNER: URGENCY: STATUS: COMPLETED PRIMARY CARE VISIT SHANICE YOUNGER, is a 78 yo WHITE MALE [place] who [facility] at the [place] [facility]. TYPE OF VISIT: Face to face [...] and glaucoma presented in regular follow-up. He was last seen in the clinic 08/07/2023 to establish care. At that time, he was referred to . He has an upcoming appointment 11/12. He underwent TTE 08/18/2023 which found LVEF 50 to 55% with grade II (moderate) diastolic dysfunction with trace MR and TR. He denies any exertional dyspnea. He is scheduled for PFTs 12/12. He follows with community pulmonology and is maintained on Trelegy. Recent labs and diagnostic studies were reviewed with the [place]. All medications were reconciled during this visit. HEALTHCARE PROVIDERS: PCP [place], last seen June 2023 in [place] Audiology: [place] Cardiology: Dr. Guardado, [facility] [place] Dermatology: [facility]: [place] Optometry: [place] Pulmonology: [facility] [place], and locally, Dr. Hickman Social Hx: The is and lives with his . He stopped smoking in 1984 after 30 pack years. He drinks a glass of wine nightly. No MJ. No regular exercise. He leads a sedentary lifestyle. 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 EXAMINATION General: Well-appearing [place] in no obvious distress. Mental Status: Alert and oriented x4. Head: Normocephalic. Eyes: PERRLA. EOMI. Anicteric sclerae. ENT: Moist oral mucosa. Posterior pharynx unremarkable Neck: Supple. No JVD. No LAD. No bruit. Lungs: CTA. Normal chest excursion. Eupneic respirations. CV: Heart tones S1, S2. RRR. No M/G/R. No peripheral edema GI: Abdomen is soft and nontender. No palpable mass. : No CVA tenderness. Ext: No cyanosis or clubbing. No gross deformities. Neuro: CN II through XII grossly intact. Normal speech. Normal gait. Integument: Skin warm and dry. No rashes or lesions on visible areas. Psych: Normal mood and affect. Normal judgment. ALLERGIES: ========= LISINOPRIL >> HEALTH MAINTENANCE PREVENTIVE MEDICINE GOALS HIV Screening DUE NOW Mental Health Treatment Plan DUE NOW Medication Reconciliation DUE NOW RHS Screen DUE NOW Eye Care At-Risk Screen DUE NOW (Optional) Whole Health Documentation DUE NOW ASSESSMENT/PLAN: Active problems - Computerized Problem List is the source for the followin. Chronic hypoxemic respiratory failure: 3. COPD - Chronic obstructive pulmonary disease: 2 L O2 dependent at all times although frequently nonadherent according to his . Not using oxygen during the visit. SPO2 ranging from 90 to 97% but mostly around 93%. Sees [facility] in [place] prior to moving here and was maintained [...] Followed with [facility] cardiology Dr. Guardado in [place]. Cardiology 1 consult placed today for continuation of care. informs that he had an echocardiogram last year but does not have that result. No records yet from Dr. Guardado in [place]. 5. PTSD - Post-traumatic stress disorder: Following with [facility]. 6. Obstructive sleep apnea 7. CKD stage 3: Unknown if stable. Getting labs today. 8. FAYE - Generalised anxiety disorder: Upcoming initial appointment with [facility] /. 9. Cognitive decline 10. CAD - Coronary Artery Disease ([facility] [id number]): Maintained on statin, BB, DOAC. Continued. 11. Exposure to potentially hazardous substance 12. Glaucoma: Followed by [place] optometry. 13. Insomnia 14. Bilateral hearing loss 15. GERD - Gastro-Esophageal Reflux Disease ([facility] [id number]): Asymptomatic since starting PPI. Continue omeprazole. FOLLOW UP: RTC Below & sooner PRN UPCOMING APPOINTMENTS: 11/13/2023 10:00 CWM/SO/VVC/MHC/PSYTR 1 11/13/2023 14:00 [facility] CARE-DENTAL SPECIAL 11/14/2023 13:00 CWM/NO/OPTOMETRY/OSHINSKI 01/23/2024 10:30 CWM/NO/MHC/PSYCHTEST/CRYSTAL 30 minutes spent in patient evaluation, data review, [...] this [facility] (local) and dispensed from another [place] or [facility] facility (remote) [...] /gurwinder/ ERNESTO ARBOLEDA NP NURSE PRACTITIONER Signed: 11/23/2023 11:29 ERNESTO ARBOLEDA
--- OUTSIDE RECORDS SUMMARY | 2024-05-13 13:37 | XMS_ITS ---
Author Name [facility] [place] Address [address] [place] [address] Care Team Providers Care Mental Health Nurse Name Role Phone ERNESTO ARBOLEDA Primary Care [...] PART A August 12, 2008 PART A [id number] [phone] Dawson YOUNGER PATIENT MEDICARE (WNR) MEDICARE (M) PART B August 12, 2008 PART B [id number] Dawson YOUNGER PATIENT MEDICARE (WNR) MEDICARE (M) PART A August 12, 2008 PART A [id number] Dawson YOUNGER PATIENT MEDICARE (WNR) MEDICARE (M) PART B August 12, 2008 PART B [id number] Dawson YOUNGER PATIENT MEDICARE (WNR) MEDICARE (M) PART A August 12, 2008 PART A [id number] Dawson YOUNGER PATIENT MEDICARE (WNR) MEDICARE (M) PART B August 12, 2008 PART B [id number] [phone] Dawson YOUNGER PATIENT MEDICARE (WNR) MEDICARE (M) PART B August 12, 2008 PART B [id number] Dawson YOUNGER PATIENT MEDICARE (WNR) MEDICARE (M) PART A August 12, 2008 PART A [id number] Dawson YOUNGER PATIENT MEDICARE (WNR) MEDICARE (M) PART B August 12, 2008 PART B [id number] [phone] Dawson YOUNGER PATIENT MEDICARE (WNR) MEDICARE (M) PART A August 12, 2008 PART A [id number] Dawson YOUNGER PATIENT MEDICARE PART D (WNR) PRESCRIPT ION PART D Apr 14, 2015 PART D [id number] Dawson YOUNGER PATIENT UNICARE PREFERRED PROVIDER ORGANIZAT ION (PPO) [facility] IN[facility] N August 12, 2008 [id number] [phone] Dawson YOUNGER PATIENT [facility] SUPPLE[facility] IN[facility] N August 12, 2008 [id number] [phone] Dawson YOUNGER PATIENT UNICARE-G. I.C. MEDICAL EXPENSE (OPT/PROF ) [facility] N August 12, 2008 [id number] [phone] Dawson YOUNGER PATIENT Selected Encounter This section includes the information on record at [place] for the Encounter. Date/Time Encounter Type Encounter Description Reason Provider Source Apr 15, 2024 11:00 AM HEARING AID REPAIR/MODIFYIN G AUDIOLOGY ICD-10-CM Z46.1 Encounter for fitting and adjustment of hearing aid LILIAM OVALLES Javad Encounter Template Text not used by [place] Assessments - Encounter Diagnoses This section includes the primary and secondary diagnoses documented for the Encounter. Date/Time Primary/Secondary Diagnosis Diagnosis Name Provider Source Apr 15, 2024 11:41 AM PRIMARY Encounter for fitting and adjustment of hearing aid YVES OVALLES [place] [facility] Apr 15, 2024 11:41 AM SECONDARY Sensorineural hearing loss, bilateral YVES OVALLES [place] [facility] [place] [facility] Plan of Treatment: Future Appointments (+ 6 months) and Future Tests (+/- 45 days) The Plan of Treatment section includes future care activities for the patient from all [place] [facility]. This section includes future appointments and future orders which are active, pending or scheduled. Future Appointments This section includes appointments that were scheduled to occur 6 months from the date of the Encounter, up to a maximum of 20 appointments. The data comes from all [place] treatment facilities. Appointment Date/Time Appointment Type Appointme nt Facility Name Apr 20, 2024 02:00 PM AMBULATORY - MEDICINE [place] [facility] [place] [facility] Apr 22, 2024 10:00 AM AMBULATORY - MEDICINE [place] [facility] [place] [facility] Apr 28, 2024 01:00 PM AMBULATORY - PSYCHIATRY [place] [facility] [place] [facility] Apr 28, 2024 01:01 PM AMBULATORY - PSYCHIATRY [place] [facility] [place] [facility] May 11, 2024 01:30 PM AMBULATORY - REHAB MEDICIN E [facility] [place] [facility] May 26, 2024 01:30 PM AMBULATORY - MEDICINE [facility] May 26, 2024 03:00 PM AMBULATORY - PSYCHIATRY [place] [facility] [place] [facility] May 26, 2024 03:01 PM AMBULATORY - PSYCHIATRY [place] [facility] [place] [facility] Jun 22, 2024 01:00 PM AMBULATORY - MEDICINE [facility] Jun 22, 2024 03:00 PM AMBULATORY - NONE [place] [facility] [place] [facility] Sep 14, 2024 02:30 PM AMBULATORY - MEDICINE [place] [facility] [place] [facility] Social History: Smoking Status (Most current) and Tobacco Use (All prior to encounter date) This section includes the most current, and the historical, smoking and tobacco- related health factors from the [place] facility where the Encounter took place. Current Smoking Status This section includes the most current smoking, or tobacco-related health factor, from the [place] facility where the Encounter took place. Date/Time Current Smoking Status Comment Facil ity Aug 06, 2023 01:17 PM VA-TOBACCO NEVER USED [place] [facility] [place] [facility] Advance Directives: All historical and current Section Date Range: From patient's date of to the date document was created. This section includes ALL of a patient's completed or amended [place] Advance and Rescinded Directives. The entries below indicate that a directive exists for the patient, but an actual copy is not included with this document. The data comes from all [place] facilities. Date Advance Directives Provider Source August 25, 2023 ADVANCE [facility]IVE [facility] Encounter Notes: All associated encounter notes This section contains the clinical notes associated to the Encounter. Date/Time Encounter Note(s) Provider Source Apr 19, 2024 03:49 PM ADDENDUM: LOCAL TITLE: Addendum STANDARD TITLE: ADDENDUM DATE OF NOTE: APR 19, 2024@15:49:49 ENTRY DATE: APR 19, 2024@15:49:50 AUTHOR: REUBEN KHALIL EXP COSIGNER: URGENCY: STATUS: COMPLETED One-time replacement remote control received and certified, spoke with the Veterans (on Comm Auth) and scheduled a 30 min HAC on 05/04/2024 @ 1130 in clinic C. RTC entered. /gurwinder/ REUBEN KHALIL Audiology Health Sales Operations Analyst Signed: 04/19/2024 15:51 Receipt Acknowledged By: 04/20/2024 07:15 /gurwinder/ JESE WAHL LEAD CLINICAL RESEARCHER ====== --- Original Document --- 04/15/24 AUDIOLOGY CLINIC: Dx CODE: Z46.1-Encounter for Fitting/Adjusting Hearing Aid(s); H90.3- Sensorineural Hearing Loss, Bilateral APPOINTMENT TYPE: Hearing Aid Programming HISTORY/BACKGROUND: The patient was seen for a hearing aid follow-up appointment, accompanied by his . He was fit with [employer] AI LEELA RTs on 02/05/24. He reports he gets interference when he watches television from his oxygen. Additionally, they lost the remote control. HEARING AID CHECK: The hearing aids were cleaned and checked. Left drying machine receiver was replaced. Listening inspection revealed both devices were working well. reported an improvement in sound quality post maintenance. and were counseled on inserting hearing aids. They were advised he is likely hearing feedback/interference because he was not correctly inserting the earmolds. A one-time L&D remote control was ordered. When device arrives will be scheduled for a HAC to have the remote paired to hearing aids. Additionally, he was advised to bring his starlink TV streamer to upcoming appointment because he states the device is not working with his hearing aids. PLAN/RECOMMENDATION(S): 1. When remote control arrives should be scheduled for a 30 minute HAC with an supervising editor trailer. * Patient Education Education provided on the following topics: Hearing aids Education provided to: P, SO Response to Education: JEF [place] Patient P Family F Significant Other SO Verbalizes Understanding VU Returns Demonstration RD Performs Independently PI Lacks Comprehension LC Refused Education RE Not Applicable NA * /gurwinder/ LILIAM OVALLES STAFF SOLAR SALES SPECIALIST Signed: 04/15/2024 11:42 REUBEN KHALIL [place] [facility] [place] [facility] Apr 15, 2024 07:27 AM AUDIOLOGY E & M NOTE: LOCAL TITLE: AUDIOLOGY CLINIC STANDARD TITLE: AUDIOLOGY E & M NOTE DATE OF NOTE: APR 15, 2024@07:27 ENTRY DATE: APR 15, 2024@07:27:24 AUTHOR: LILIAM OVALLES COSIGNER: URGENCY: STATUS: COMPLETED AUDIOLOGY CLINIC Has ADDENDA Dx CODE: Z46.1-Encounter for Fitting/Adjusting Hearing Aid(s); H90.3- Sensorineural Hearing Loss, Bilateral APPOINTMENT TYPE: Hearing Aid Programming HISTORY/BACKGROUND: The patient was seen for a hearing aid follow-up appointment, accompanied by his . He was fit with [employer] AI LEELA RTs on 02/05/24. He reports he gets interference when he watches television from his oxygen. Additionally, they lost the remote control. HEARING AID CHECK: The hearing aids were cleaned and checked. Left drying machine receiver was replaced. Listening inspection revealed both devices were working well. reported an improvement in sound quality post maintenance. [place] and were counseled on inserting hearing aids. They were advised he is likely hearing feedback/interference because he was not correctly inserting the earmolds. A one-time L&D remote control was ordered. When device arrives will be scheduled for a HAC to have the remote paired to hearing aids. Additionally, he was advised to bring his starlink TV streamer to upcoming appointment because he states the device is not working with his hearing aids. PLAN/RECOMMENDATION(S): 1. When remote control arrives should be scheduled for a 30 minute HAC with an supervising editor trailer. * Patient Education Education provided on the following topics: Hearing aids Education provided to: Chao SO Response to Education: JEF Hudson Patient P Family F Significant Other SO Verbalizes Understanding VU Returns Demonstration RD Performs Independently PI Lacks Comprehension LC Refused Education RE Not Applicable NA * /gurwinder/ LILIAM OVALLES STAFF SOLAR SALES SPECIALIST Signed: 04/15/2024 11:42 04/19/2024 ADDENDUM STATUS: COMPLETED One-time replacement remote control received and certified, spoke with the Veterans (on Comm Auth) and scheduled a 30 min HAC on 05/04/2024 @ 1130 in clinic C. RTC entered. /gurwinder/ REUBEN KHALIL Audiology Health Sales Operations Analyst Signed: 04/19/2024 15:51 Receipt Acknowledged By: * AWAITING SIGNATURE * JESE WAHL,LILIAM N[facility] [place] [facility]
--- OUTSIDE RECORDS SUMMARY | 2024-05-13 13:37 | XMS_ITS ---
Author Name [facility] [place] Address [address] [place] [address] Care Team Providers Care Insulator Cutter And Former Name Role Phone ERNESTO ARBOLEDA Primary Care [...] PART A August 12, 2008 PART A [id number] [phone] Dawson YOUNGER PATIENT MEDICARE (WNR) MEDICARE (M) PART B August 12, 2008 PART B [id number] [phone] Dawson YOUNGER PATIENT MEDICARE (WNR) MEDICARE (M) PART A August 12, 2008 PART A [id number] [phone] Dawson YOUNGER PATIENT MEDICARE (WNR) MEDICARE (M) PART B August 12, 2008 PART B [id number] Dawson YOUNGER PATIENT MEDICARE (WNR) MEDICARE (M) PART A August 12, 2008 PART A [id number] [phone] Dawson YOUNGER PATIENT MEDICARE (WNR) MEDICARE (M) PART B August 12, 2008 PART B [id number] Dawson YOUNGER PATIENT MEDICARE (WNR) MEDICARE (M) PART B August 12, 2008 PART B [id number] Dawson YOUNGER PATIENT MEDICARE (WNR) MEDICARE (M) PART A August 12, 2008 PART A [id number] [phone] Dawson YOUNGER PATIENT MEDICARE (WNR) MEDICARE (M) PART A August 12, 2008 PART A [id number] Dawson YOUNGER PATIENT MEDICARE (WNR) MEDICARE (M) PART B August 12, 2008 PART B [id number] Dawson YOUNGER PATIENT MEDICARE PART D (WNR) PRESCRIPT ION PART D Apr 14, 2015 PART D [id number] Dawson YOUNGER PATIENT UNICARE PREFERRED PROVIDER ORGANIZAT ION (PPO) [facility] INDEM N August 12, 2008 [id number] Dawson YOUNGER PATIENT [facility] SUPPLEMEN [facility] IN[facility]M N August 12, 2008 [id number] [phone] Dawson YOUNGER PATIENT UNICARE-G. I.C. MEDICAL EXPENSE (OPT/PROF ) [facility] N August 12, 2008 [id number] [phone] Dawson YOUNGER PATIENT Selected Encounter This section includes the information on record at [place] for the Encounter. Date/Time Encounter Type Encounter Description Reason Provider Source Jan 02, 2024 02:00 PM CONFORMITY EVALUATION AUDIOLOGY ICD-10-CM Z46.1 Encounter for fitting and adjustment of hearing aid CAMINITI,KEVIN E IHE Encounter Template Text not used by [place] Assessments - Encounter Diagnoses This section includes the primary and secondary diagnoses documented for the Encounter. Date/Time Primary/Secondary Diagnosis Diagnosis Name Provider Source Jan 02, 2024 02:50 PM PRIMARY Encounter for fitting and adjustment of hearing aid KEVIN BARDALES [place] [facility] [place] [facility] Jan 02, 2024 02:50 PM SECONDARY Sensorineural hearing loss, bilateral KEVIN BARDALES E [place] [facility] [place] [facility] Plan of Treatment: Future Appointments (+ 6 months) and Future Tests (+/- 45 days) The Plan of Treatment section includes future care activities for the patient from all [place] [facility]. This section includes future appointments and future orders which are active, pending or scheduled. Future Appointments This section includes appointments that were scheduled to occur 6 months from the date of the Encounter, up to a maximum of 20 appointments. The data comes from all [place] treatment facilities. Appointment Date/Time Appointment Type Appointme nt Facility Name Jan 21, 2024 02:30 PM AMBULATORY - PSYCHIATRY [place] [facility] [place] [facility] Jan 21, 2024 02:31 PM AMBULATORY - PSYCHIATRY [facility] [place] [facility] Feb 05, 2024 11:00 AM AMBULATORY - REHAB MEDICIN E [place] [facility] [place] [facility] Feb 05, 2024 01:30 PM AMBULATORY - MEDICINE [facility] [place] [facility] Feb 26, 2024 01:00 PM AMBULATORY - MEDICINE [facility] Apr 15, 2024 11:00 AM AMBULATORY - REHAB MEDICIN E [place] [facility] [place] [facility] Apr 20, 2024 02:00 PM AMBULATORY - MEDICINE [place] [facility] [place] [facility] Apr 22, 2024 10:00 AM AMBULATORY - MEDICINE [facility] [place] [facility] Apr 28, 2024 01:00 PM AMBULATORY - PSYCHIATRY [facility] [place] [facility] Apr 28, 2024 01:01 PM AMBULATORY - PSYCHIATRY [facility] [place] [facility] May 11, 2024 01:30 PM AMBULATORY - REHAB MEDICIN E [place] [facility] [place] [facility] May 26, 2024 01:30 PM [facility] May 26, 2024 03:00 PM AMBULATORY - PSYCHIATRY [facility] May 26, 2024 03:01 PM AMBULAT[facility] Jun 22, 2024 01:00 PM [facility] - [facility] Jun 22, 2024 03:00 PM AMBULATORY - NONE [facility] Active, Pending, and Scheduled Orders This section includes a listing of several types of active, pending, and scheduled orders, including clinic medications orders, diagnostic test orders, procedure orders and consult orders; where the start date of the order is 45 days before the date of the Encounter or 45 days after the date of theEncounter. The data comes from all [place] treatment facilities. Test Date/Time Test Type Test Details Facility Name Dec 12, 2023 11:03 AM Consult Order [facility] Cons Yarn Preparation Supervisor's [facility] Social History: Smoking Status (Most current) and Tobacco Use (All prior to encounter date) This section includes the most current, and the historical, smoking and tobacco- related health factors from the [place] facility where the Encounter took place. Current Smoking Status This section includes the most current smoking, or tobacco-related health factor, from the [place] facility where the Encounter took place. Date/Time Current Smoking Status Comment Facil ity Aug 06, 2023 01:17 PM VA-TOBACCO NEVER USED [facility] Advance Directives: All historical and current Section Date Range: From patient's date of to the date document was created. This section includes ALL of a patient's completed or amended [place] Advance and Rescinded Directives. The entries below indicate that a directive exists for the patient, but an actual copy is not included with this document. The data comes from all [place] facilities. Date Advance Directives Provider Source August 25, 2023 ADVANCE DIRECTIVE MICHELLE LEVINE [facility] Encounter Notes: All associated encounter notes This section contains the clinical notes associated to the Encounter. Date/Time Encounter Note(s) Provider Source Jan 02, 2024 10:54 AM AUDIOLOGY E & M NO TE: LOCAL TITLE: AUDIOLOGY CLINIC STANDARD TITLE: AUDIOLOGY E & M NOTE DATE OF NOTE: JAN 02, 2024@10:54 ENTRY DATE: JAN 02, 2024@10:55:05 AUTHOR: KEVIN BARDALES COSIGNER: URGENCY: STATUS: COMPLETED AUDIOLOGY CLINIC Has ADDENDA Elbert was seen 01-02-24 for a hearing re-evaluation. Hearing was last evaluated in 2021 in [place]. The [facility]Es record indicates that he was issued two sets of Vero ITC Rs in 2021. However reports he only has one set from 2021 and the set from 2018. He reports no otologic changes, denying tinnitus and vertigo. He states that hearing may have declined and that the main issue he has is understanding speech. Results are as follow: Otoscopy is WNL for both ears. Pure tone audiometric testing with headphones revealed a mild/moderate sloping to profound sensorineural hearing loss bilaterally. Word recognition scores were poor with 36% correct for the right ear and 44% correct for the left ear for recorded speech presented at 90 dB HL (masked). Normal tympanograms were obtained bilaterally. Results obtained today are considered overall stable in comparison to those from 2021. Both ITC Rs were connected to [employer] and a firmware update was completed. They were checked and sound weak. The read out indicated that they are in e-STAT. They were reprogrammed to today's audiogram with NAL-NL1 targets. A feedback test was run with good gain margins. [place] was counseled on today's test results. Included was a discussion on hearing aid limitations and how he may be considered a cochlear implant candidate. Given the issues he is experiencing and the style of 's current amplification, he is considered eligible for new hearing aids. Binaural RICs with a remote aruna/TV device/remote are recommended and agrees. These will be ordered with impressions on file. Fitting was scheduled for 02-05-24 at 11am, [facility] placed. /gurwinder/ Kelley JI, [facility] STAFF AUTOMOTIVE MAINTENANCE TECHNICIAN Signed: 01/02/2024 15:00 Receipt Acknowledged By: 01/02/2024 15:46 /gurwinder/ JESE WAHL LEAD OUTSOLE BEVELER 01/13/2024 ADDENDUM STATUS: COMPLETED Hearing aids, remote control, TV Streamer and remote aruna received and certified, upcoming appointment scheduled on 02/05/2024. /gurwinder/ REUBEN KHALIL Audiology Health Graduate Advisor Signed: 01/13/2024 15:43 KEVIN BARDALES [facility]
--- OUTSIDE RECORDS SUMMARY | 2024-05-13 13:38 | XMS_ITS | Continuity of Care Document ---
Author Name [facility] Organization [facility] Care Team Providers Care It Technical Architect Name Role Phone [facility] Unavailable Unavailable Problems Combined list of problems from Department of Defense and Veterans Affairs facilities. It does not include entries that were removed or entered in error. Problem Status Onset Date Problem Type Date of Resolution Comments Source Bilateral hearing loss Active Condition [facility] CAD - Coronary Artery Disease (SCT 02600206) Active Condition [facility] Chronic hypoxemic respiratory failure Active Condition [facility] obstructive lung disease [facility] CKD stage 3 Active Condition [facility] Cognitive decline Active [facility] COPD - Chronic obstructive pulmonary disease Active Condition Aug 08, 2023 Entered By: TYLER ARBOLEDA A Comment: 2 L O2 dependent 04/11 [facility] Dementia Active Condition [facility] Depressive disorder (SNOMED CT 67635906) Active Condition [facility] [facility] Essential tremor Active Condition [facility] FAYE - Generalised anxiety disorder Active Condition [facility] GERD - Gastro-Esophageal Reflux Disease (SCT 117615234) Active Condition [facility] Glaucoma Active Condition [facility] Hearing Loss, Bilateral Active Condition [facility] History of male erectile disorder Active Condition [facility] [facility] Hyperlipidemia [facility] Hypertriglyceridaemia Active Condition [facility] Insomnia Active Condition [facility] Long-term current use of anticoagulant Active Condition [facility] Wakeman's granuloma Active Condition [facility] Obstructive sleep apnea Active Condition [facility] Obstructive sleep apnea syndrome Active Condition Feb 14, 2017 Entered By: JULIANA MAST Comment: Autopap [id number] p 2018 Entered By: JAVI YOUNG Comment: NASAL PILLOWS [facility] PAF - Paroxysmal atrial fibrillation Active Condition Aug 08, 2023 Entered By: TYLER ARBOLEDA Comment: s/p ablation x2 [facility] PAF - Paroxysmal atrial fibrillation [facility] Paroxysmal atrial fibrillation Active Condition Jan 25, 2016 Entered By: JEFFERSON MORROW Comment: ablation - 10/2015 [facility] Posttraumatic stress disorder, delayed onset (SNOMED CT [id number]) Active Condition [facility] PTSD - Post-traumatic stress disorder Active Condition [facility] TIA - transient ischemic attack Active Condition [facility] Asthma, unspecified Inactive Condition 08[facility]09[facility]2019 [facility] Cold sore Inactive Condition 01/25/2016 [facility] Dizziness Inactive Condition 08/11/2018 [facility] Glaucoma suspect Inactive Condition 07/04/[address] [place] [address] Glaucoma, Suspect (ICD-9-CM 365.00) Inactive Condition 06/23/2015 [facility] Hyperlipidemia Inactive Condition 08/09/2019 [facility] PSEUDOEXFOLIAT GLAUCOMA Inactive Condition 06/23/2015 [facility] Diagnosis: ICD-10-CM Z46.1 Encounter for fitting and adjustment of hearing aid Active Diagnosis [facility] Diagnosis: ICD-10-CM F43.10 Post-traumatic stress disorder, unspecified Active Diagnosis [facility] Diagnosis: ICD-10-CM Z79.01 correction (current) use of anticoagulants Active Diagnosis [facility] Diagnosis: ICD-10-CM F03.B4 Unspecified dementia, moderate, with anxiety Active Diagnosis [facility] Diagnosis: ICD-10-CM 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, right eye, mild stage Active Diagnosis [facility] Diagnosis: ICD-10-CM H40.1421 Capslr glaucoma w/pseudxf lens, left eye, mild stage Active Diagnosis [facility] Diagnosis: ICD-10-CM R41.3 Other amnesia Active Diagnosis [facility] [place] [facility] Diagnosis: ICD-10-CM H40.1412 Capslr glaucoma w/pseudxf lens, right eye, moderate stage Active Diagnosis [facility] [place] [facility] Diagnosis: ICD-10-CM J96.11 Chronic respiratory failure with hypoxia Active Diagnosis [place] Diagnosis: ICD-10-CM K03.6 Deposits [accretions] on teeth Active Diagnosis [facility] [place] [facility] Diagnosis: ICD-10-CM I48.20 Chronic atrial fibrillation, unspecified Active Diagnosis [facility] Diagnosis: ICD-10-CM F43.12 Post-traumatic stress disorder, chronic Active Diagnosis [place] Diagnosis: ICD-10-CM K08.531 Fractured dental restorative material with loss of material Active Diagnosis [facility] [place] [facility] Diagnosis: ICD-10-CM L92.0 Granuloma annulare Active Diagnosis [facility] Diagnosis: ICD-10-CM Z13.89 Encounter for screening for other disorder Active Diagnosis [place] Diagnosis: ICD-10-CM I48.0 Paroxysmal atrial fibrillation Active Diagnosis [facility] Diagnosis: ICD-10-CM Z71.89 Other specified counseling Active Diagnosis [place] Diagnosis: ICD-10-CM Z13.6 Encounter for screening for cardiovascular disorders Active Diagnosis [facility] Diagnosis: ICD-10-CM J44.9 Chronic obstructive pulmonary disease, unspecified Active Diagnosis [facility] Diagnosis: ICD-10-CM R68.89 Other general symptoms and signs Active Diagnosis [facility] Diagnosis: ICD-10-CM L30.8 Other specified dermatitis Active Diagnosis [facility] Diagnosis: ICD-10-CM Z23 Encounter for immunization Active Diagnosis [facility] Diagnosis: ICD-10-CM 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 Medication Details Route Status Patient Instructions Prescription Expires Prescription Number Last Dispense Date Ordering Provider Order Date Order Qty Source ALBUTEROL 90MCG/ACTUA T (CFC-F) INHL,ORAL,8 .5GM DOSE COUNTER INHALE 2 PUFFS BY MOUTH FOUR TIMES DAILY NEEDED FOR BRONCHOS PASM RESPIR ATORY (INHAL ATION) ACTIVE 08/07/2024 [id number] 4 Connor ARBOLEDA AVID A 2023 2 [place] ATORVASTATI N CA 80MG TAB TAKE ONE-HALF TABLET BY MOUTH EVERY DAY FOR CHOLESTE ROL ORAL ACTIVE 06/30/2024 [id number] 4 Narendra MORROW ISHORE 2023 45 [facility] ATORVASTATI N CA 80MG TAB TAKE ONE TABLET BY MOUTH ONCE DAILY FOR HIGH CHOLESTE ROL ORAL DISCONT INUED BY PROVIDE R 08/08/2024 [id number] 4 Connor ARBOLEDA AVID A 2023 90 [place] ATORVASTATI N CA 80MG TAB TAKE ONE-HALF TABLET BY MOUTH EVERY DAY FOR CHOLESTE ROL ORAL DISCONT INUED 07/05/2023 [id number] 4 Narendra MORROW ISHORE 2022 45 [facility] BRIMONIDINE TARTRATE 0.2% SOLN,OPH INSTILL 1 DROP INTO THE RIGHT EYE TWICE DAILY FOR GLAUCOMA OPHTHA LMIC ACTIVE 01/01/2025 [id number] 4 [facility]SE GREENE 2023 [facility] BRIMONIDINE TARTRATE 0.2% SOLN,OPH INSTILL 1 DROP INTO RIGHT EYE EVERY MORNING FOR GLAUCOMA OPHTHA LMIC DISCONT INUED 09/27/2023 [id number] 3 PEGGY ANDERSON SA [address] [place] [address] BRIMONIDINE TARTRATE 0.2% SOLN,OPH INSTILL 1 DROP INTO THE RIGHT EYE EVERY MORNING FOR INCREASE D PRESSURE IN THE EYE FOR GLAUCOMA OPHTHA LMIC DISCONT INUED (EDIT) 11/14/2024 [id number] 4 JOSE GREENE 2023 10 [facility] BRIMONIDINE TARTRATE 0.2% SOLN,OPH INSTILL 1 DROP INTO RIGHT EYE EVERY MORNING FOR GLAUCOMA OPHTHA LMIC 03/28/2024 [id number] 4 MONICAPEGGY Pineda [address] [place] [address] CARBOXYMETH YLCELLULOSE NA 0.5% SOLN,OPH INSTILL 1 DROP INTO EACH EYE FOUR TIMES A DAY FOR DRY EYE OPHTHA LMIC ACTIVE 11/14/2024 [id number] 4 JOSE GREENE 2023 15 [facility] [place] DABIGATRAN ETEXILATE 150MG CAP,ORAL TAKE ONE CAPSULE BY MOUTH TWICE DAILY TO PREVENT BLOOD CLOTS (ONCE OPENED, THE MEDICATI ON MUST BE USED WITHIN 4 MONTHS) ORAL ACTIVE 08/13/2024 [id number] 4 Connor ARBOLEDAD A 2023 180 [place] DABIGATRAN ETEXILATE 150MG CAP,ORAL TAKE ONE CAPSULE BY MOUTH TWICE A DAY TAKE WITH A FULL GLASS OF WATER,TO PREVENT BLOOD CLOTS ORAL DISCONT INUED BY PROVIDE R 08/20/2023 [id number] 4 IAN AYALA 2022 180 PATRICK Iyer [facility] DILTIAZEM (EQV-CARDIZ EM AB3) 240MG 24HR CAP TAKE ONE CAPSULE BY MOUTH ONCE DAILY FOR ATRIAL FIBRILLA TION ORAL ACTIVE 08/07/2024 [id number] Connor ARBOLEDAD A 2023 90 [place] DOXYCYCLINE HYCLATE 100MG TAB TAKE ONE TABLET BY MOUTH TWICE DAILY UPPER RESPIRAT ORY INFECTIO N ORAL 11/29/2023 [id number] Connor ARBOLEDAD A 2023 14 [place] EZETIMIBE 10MG TAB TAKE ONE TABLET BY MOUTH ONCE DAILY TO LOWER CHOLESTE ROL ORAL ACTIVE 08/07/2024 [id number] 4 Connor ARBOLEDA AVID A 2023 90 [place] FENOFIBRATE 48MG TAB TAKE ONE TABLET BY MOUTH ONCE DAILY FOR HIGH CHOLESTE ROL ORAL ACTIVE 02/26/2025 [id number] 4 Connor ARBOLEDA AVID A 2023 90 [place] FUROSEMIDE 20MG TAB TAKE ONE TABLET BY MOUTH ONCE DAILY NEEDED FOR VISIBLE WATER RETENTIO N TO REMOVE FLUID/CO NTROL BLOOD PRESSURE ORAL ACTIVE 08/08/2024 [id number] 4 Connor ARBOLEDA AVID A 2023 90 [place] FUROSEMIDE 20MG TAB TAKE ONE TABLET BY MOUTH EVERY MORNING ORAL ACTIVE Narendra MORROWORE 2019 [facility] KETOCONAZOL E 2% SHAMPOO USE SMALL AMOUNT ON SCALP FRI,FRI AND FRIDAY SEBORRHE IC DERMATIT IS LATHER, APPLY TO SCALP, LEAVE ON FOR 5 MINUTES, THEN WASH OFF. DO THIS THREE TIMES PER WEEK. LATHER, APPLY TO SCALP, LEAVE ON FOR 5 MINUTES, THEN WASH OFF. DO THIS THREE TIMES PER WEEK. TOPICA L 03/31/2024 [id number] 4 Javad [place] 2022 120 [facility] LATANOPROST 0.005% SOLN,OPH INSTILL 1 DROP INTO EACH EYE AT BEDTIME FOR INCREASE D PRESSURE IN THE EYE OPHTHA LMIC ACTIVE 11/14/2024 [id number] [address] JOSE GREENE [address] [facility] [place] [facility] LATANOPROST 0.005% SOLN,OPH INSTILL 1 DROP INTO BOTH EYES AT BEDTIME FOR GLAUCOMA OPHTHA LMIC 09/27/2023 [id number] 4 PEGGY ANDERSON SA S [address] [place] [address] METOPROLOL SUCCINATE 50MG TAB,SA TAKE ONE TABLET BY MOUTH ONCE DAILY FOR BLOOD PRESSURE /HEART ORAL ACTIVE 08/08/2024 [id number] Connor ARBOLEDAD A 2023 90 [place] METOPROLOL TARTRATE 50MG TAB TAKE ONE-HALF TABLET BY MOUTH TWICE A DAY FOR HEART AND BLOOD PRESSURE ORAL ACTIVE 06/30/2024 [id number] 4 Narendra MORROWORE 2023 90 [facility] METOPROLOL TARTRATE 50MG TAB TAKE ONE-HALF TABLET BY MOUTH TWICE A DAY FOR HEART AND BLOOD PRESSURE ORAL DISCONT INUED 07/05/2023 [id number] 4 Narendra MORROWORE 2022 90 [facility] OMEPRAZOLE 20MG CAP,EC TAKE ONE CAPSULE BY MOUTH EVERY MORNING 30 MINUTES BEFORE BREAKFAS T FOR GASTROES OPHAGEAL REFLUX DISEASE ORAL ACTIVE 08/08/2024 [id number] Connor ARBOLEDA AVID A 2023 90 [place] OMEPRAZOLE 20MG CAP,EC TAKE ONE CAPSULE BY MOUTH EVERY DAY FOR STOMACH ORAL ACTIVE 06/30/2024 [id number] 4 Narendra MORROW ISHORE 2023 90 [facility] OMEPRAZOLE 20MG CAP,EC TAKE ONE CAPSULE BY MOUTH EVERY DAY FOR STOMACH ORAL DISCONT INUED 07/05/2023 [id number] 4 Narendra MORROW 2022 90 [facility] PRAZOSIN HCL 2MG CAP TAKE TWO CAPSULES BY MOUTH AT BEDTIME FOR NIGHTMAR ES ORAL 03/29/2023 [id number] 3 Shaila EDWARD N 2022 180 [facility] PRIMIDONE 50MG TAB TAKE ONE TABLET BY MOUTH ONCE DAILY FOR SIMPLE SEIZURE ORAL ACTIVE 08/08/2024 [id number] Connor ARBOLEDAD A 2023 90 [facility] PRIMIDONE 50MG TAB TAKE ONE TABLET BY MOUTH THREE TIMES A DAY FOR TREMORS ORAL ACTIVE 06/30/2024 [id number] 4 Narendra MORROW 2023 270 [facility] PRIMIDONE 50MG TAB TAKE ONE TABLET BY MOUTH THREE TIMES A DAY FOR TREMORS ORAL DISCONT INUED 07/05/2023 [id number] 4 Narendra MORROW 2022 270 [facility] QUETIAPINE FUMARATE 100MG TAB TAKE ONE TABLET BY MOUTH AT BEDTIME FOR MOOD AND PTSD ORAL ACTIVE 04/29/2025 [id number] Edwin HERNANDEZ G 2024 30 [place] QUETIAPINE FUMARATE 100MG TAB TAKE ONE TABLET BY MOUTH AT BEDTIME FOR ANXIETY ORAL 11/29/2023 [id number] Connor ARBOLEDA A 2023 30 [place] QUETIAPINE FUMARATE 200MG TAB TAKE ONE-HALF TABLET BY MOUTH AT BEDTIME FOR ANXIETY ORAL 04/23/2024 [id number] 4 Shaila EDWARD N 2023 15 [facility] QUETIAPINE FUMARATE 50MG TAB TAKE ONE-HALF TABLET BY MOUTH AT BEDTIME FOR ANXIETY ORAL DISCONT INUED (EDIT) 03/25/2024 [id number] 4 Shaila EDWARD N 2022 15 [facility] SERTRALINE HCL 100MG TAB TAKE ONE TABLET BY MOUTH ONCE DAILY FOR POSTTRAU MATIC STRESS SYNDROME ORAL ACTIVE 08/08/2024 [id number] 4 Connor ARBOLEDA A 2023 90 [place] SERTRALINE HCL 100MG TAB TAKE TWO TABLETS BY MOUTH EVERY DAY FOR DEPRESSI ON ORAL 03/29/2023 [id number] 3 Shaila EDWARD N 2022 180 [facility] TEMAZEPAM 7.5MG CAP TAKE ONE CAPSULE BY MOUTH AT BEDTIME NEEDED FOR SLEEP ORAL DISCONT INUED 03/27/2023 [id number] 3 Shaila EDWARD N 2022 30 [facility] TRAZODONE HCL 100MG TAB TAKE TWO TABLETS BY MOUTH AT BEDTIME FOR INSOMNIA ASSOCIAT ED WITH DEPRESSI ON ORAL DISCONT INUED BY PROVIDE R 01/21/2025 [id number] 4 Edwin HERNANDEZ G 2023 180 [place] TRAZODONE HCL 100MG TAB TAKE 1/2 - 1 TABLET BY MOUTH AT BEDTIME NEEDED FOR INSOMNIA ASSOCIAT ED WITH DEPRESSI ON ORAL DISCONT INUED (EDIT) 11/13/2024 [id number] 4 Edwin HERNANDEZ 2023 30 [place] JANAU M/JULIÁN L INHALER INHL,ORAL USE BY INHALATI ON EVERY DAY RESPIR ATORY (INHAL ATION) ACTIVE GISELLEYANarendra SINGH ISHORE 2019 [facility] Allergies, Adverse Reactions, Alerts Combined list of allergies from Department of Defense and Veterans Affairs facilities. It does not include entries that were removed or entered in error. Substance Category Reaction Severity Reaction type Status Date Reported Comments Source ATORVASTATIN Propensity to adverse reactions to drug (finding) Muscle pain MODERATE active 4 [facility] LISINOPRIL Propensity to adverse reactions to drug (finding) Angioedema active 0 [facility] LISINOPRIL Propensity to adverse reactions to drug (finding) Swelling active 4 [facility] Immunizations Combined list of available immunizations from the Department of Defense and Veterans Affairs facilities. Immunization Series Date Given Administered By Site Reaction Lot Number CVX Code Drug Delivery Analyst Status Comments Source COVID-19 (MODERNA), MRNA, LNP-S, PF, 50 MCG/0.5 ML (AGES 12+ YEARS) 2023 EMELY BRUNO RIGHT DELTO ID [id number] 312 complet ed [facility] INFLUENZA, HIGH-DOSE, TRIVALENT, PF 2023 EMELY BRUNO R LEFT DELTO ID [id number] 135 [facility] INFLUENZA, INJECTABLE, QUADRIVALENT, PRESERVATIVE FREE 2022 JIMMY FOOTE RIGHT DELTO ID [id number] A 150 complet ed [facility] RSV, BIVALENT, PROTEIN SUBUNIT RSVPREF, DILUENT RECONSTITUTED , 0.5 ML, PF 2022 JIMMY FOOTE LEFT DELTO ID [id number] 305 complet ed diluent lot#[id number] exp: 06/08 [facility] INFLUENZA, UNSPECIFIED FORMULATION 2022 88 [facility] INFLUENZA, SEASONAL, INJECTABLE 2021 141 complet ed [facility] INFLUENZA VACCINE, QUADRIVALENT, ADJUVANTED 1 2021 205 complet ed [facility] COVID-19 (MODERNA), MRNA, LNP-S, PF, 100 MCG OR 50 MCG DOSE 3 2020 207 complet ed MOD; [id number]; 2 [facility] COVID-19 (MODERNA), MRNA, LNP-S, PF, 100 MCG/0.5ML DOSE OR 50 MCG/0.25ML DOSE 3 2020 207 complet ed [facility] INFLUENZA, RECOMBINANT, QUADRIVALENT, INJECTABLE, PRESERVATIVE FREE 1 2020 185 complet ed [facility] ZOSTER RECOMBINANT 2 2020 187 complet ed [facility] ZOSTER RECOMBINANT 1 2020 187 complet ed [facility] COVID-19 (MODERNA), MRNA, LNP-S, PF, 100 MCG/0.5 ML DOSE 2 2020 207 complet ed [facility] COVID-19 (MODERNA), MRNA, LNP-S, PF, 100 MCG/0.5 ML DOSE 1 2020 207 complet ed [facility] COVID-19 (MODERNA), MRNA, LNP-S, PF, 100 MCG/0.5ML DOSE OR 50 MCG/0.25ML DOSE 1 2020 207 complet ed [facility] INFLUENZA, UNSPECIFIED FORMULATION 2019 88 complet ed [facility] INFLUENZA, SEASONAL, INJECTABLE 2019 141 complet ed [facility] INFLUENZA, INJECTABLE, QUADRIVALENT, PRESERVATIVE FREE 1 2019 150 complet ed [facility] INFLUENZA, UNSPECIFIED FORMULATION 2018 88 complet ed [facility] INFLUENZA, UNSPECIFIED FORMULATION 2017 88 complet ed [facility] INFLUENZA, SEASONAL, INJECTABLE 2016 141 complet ed [employer] [facility] TDAP 1 2016 115 complet ed [facility] INFLUENZA, UNSPECIFIED FORMULATION 2015 88 complet ed [employer] [facility] INFLUENZA, HIGH DOSE SEASONAL 1 2015 135 complet ed [facility] INFLUENZA, UNSPECIFIED FORMULATION 2014 88 complet ed BIO CSL [facility] ZOSTER LIVE 2014 121 complet ed [facility] TDAP 2014 115 complet ed [facility] INFLUENZA, UNSPECIFIED FORMULATION 2014 88 complet ed [facility] PNEUMOCOCCAL CONJUGATE PCV 13 1 2014 133 complet ed [facility] INFLUENZA, UNSPECIFIED FORMULATION 2012 88 complet ed [employer] [facility] INFLUENZA, UNSPECIFIED FORMULATION 2011 88 complet ed [facility] INFLUENZA, UNSPECIFIED FORMULATION 2009 88 complet ed [facility] INFLUENZA, UNSPECIFIED FORMULATION 2008 88 complet ed [facility] PNEUMOCOCCAL, UNSPECIFIED FORMULATION 2008 109 complet ed [facility] PNEUMOCOCCAL POLYSACCHARID E [id number] [address] [facility] [place] [facility] TD(ADULT) UNSPECIFIED FORMULATION 2008 139 complet ed per patient [facility] INFLUENZA, UNSPECIFIED FORMULATION 2007 88 complet ed [facility] Results Combined list of recent chemistry, hematology and other laboratory results from Department of Defense and Veterans Affairs, ranging from 15 months to all on record, depending upon the facility. Order Name Results Value Reference Range Date Interpretation Specimen Comments Source CALCIUM CALCIUM [MASS/VOLU ME] IN SERUM OR PLASMA 8.8 mg/dL 8.5 - 10.2 11/06 Specimen Type: SERUM No comment entered. Ordering Provider: TYLER ARBOLEDA Report Released Date/Time: August 17, 2023 01:25 PM Reporting [facility] [employer] [address] Performing Lab: [facility] [address] [address] [place] HEMOGLOB IN A1C PANEL HEMOGLOBIN A1C/HEMOGL OBIN.TOTAL IN BLOOD BY HPLC 5.9 4.0 - 5.6 11/06 H Specimen Type: BLOOD Comment: Values obtained from A1C measurement s can vary. For atypical A1C assays, a reported value of 7.0 could actually be between 6.72 and 7.28 if measured by a reference method. A reported value of 9.0 could actually be between 8.73 and 9.27. Ref: http://www. ngsp.org/[place] Pdata.asp Ordering Provider: TYLER ARBOLEDA A Report Released Date/Time: August 17, 2023 01:25 PM Reporting Lab: [facility] [address] [address] Performing Lab: [address] [address] [place] LIPID PANEL, NON FASTING CHOLESTERO L [MASS/VOLU ME] IN SERUM OR PLASMA 134 mg/dL 11/06 Specimen Type: SERUM No comment entered. Ordering Provider: TYLER ARBOLEDA A Report Released Date/Time: August 17, 2023 01:25 PM Reporting Lab: [facility] [address] [address] Performing Lab: [facility] [address] [address] [place] LIPID PANEL, NON FASTING TRIGLYCERI DE [MASS/VOLU ME] IN SERUM OR PLASMA 235 mg/dL 0 - 150 11/06 H Specimen Type: SERUM No comment entered. Ordering Provider: TYLER ARBOLEDA A Report Released Date/Time: August 17, 2023 01:25 PM Reporting Lab: [facility] [address] [address] Performing Lab: [facility] [address] [address] [place] LIPID PANEL, NON FASTING CHOLESTERO L IN LDL [MASS/VOLU ME] IN SERUM OR PLASMA BY CALCULATIO N 41 mg/dL 0 - 129 11/06 Specimen Type: SERUM No comment entered. Ordering Provider: TYLER ARBOLEDA A Report Released Date/Time: August 17, 2023 01:25 PM Reporting Lab: [facility] [place] [address] [facility] [address] Performing Lab: [facility] [address] [place] LIPID PANEL, NON FASTING CHOLESTERO L.TOTAL/CH OLESTEROL IN HDL [MASS RATIO] IN SERUM OR PLASMA 2.9 11/06 Specimen Type: SERUM No comment entered. Ordering Provider: TYLER ARBOLEDA A Report Released Date/Time: August 17, 2023 01:25 PM Reporting Lab: [facility] [address] [address] Performing Lab: [facility] [address] [address] [place] LIPID PANEL, NON FASTING CHOLESTERO L IN HDL [MASS/VOLU ME] IN SERUM OR PLASMA 46 mg/dL 40 - 60 11/06 Specimen Type: SERUM No comment entered. Ordering Provider: TYLER ARBOLEDA A Report Released Date/Time: August 17, 2023 01:25 PM Reporting Lab: [facility] [address] [address] Performing Lab: [facility] [address] [place] LIVER FUNCTION PROTEIN [MASS/VOLU ME] IN SERUM OR PLASMA 6.4 g/dL 6.0 - 8.3 11/06 Specimen Type: SERUM No comment entered. Ordering Provider: TYLER ARBOLEDA A Report Released Date/Time: August 17, 2023 01:25 PM Reporting Lab: [facility] [address] [address] Performing Lab: [facility] [address] [address] [place] LIVER FUNCTION ALBUMIN [MASS/VOLU ME] IN SERUM OR PLASMA 3.3 g/dL 3.5 - 5.0 11/06 L Specimen Type: SERUM No comment entered. Ordering Provider: TYLER ARBOLEDA A Report Released Date/Time: August 17, 2023 01:25 PM Reporting Lab: [facility] [facility] [address] Performing Lab: [facility] [address] [place] LIVER FUNCTION ALKALINE PHOSPHATAS E [ENZYMATIC ACTIVITY/V OLUME] IN SERUM OR PLASMA 88 U/L 40 - 150 11/06 Specimen Type: SERUM No comment entered. Ordering Provider: TYLER ARBOLEDA A Report Released Date/Time: August 17, 2023 01:25 PM Reporting Lab: [facility]N [address] [address] Performing Lab: [facility] [address] [address] [place] LIVER FUNCTION ASPARTATE AMINOTRANS FERASE [ENZYMATIC ACTIVITY/V OLUME] IN SERUM OR PLASMA 16 U/L 5 - 34 11/06 Specimen Type: SERUM No comment entered. Ordering Provider: TYLER ARBOLEDA A Report Released Date/Time: August 17, 2023 01:25 PM Reporting Lab: [facility] [address] [address] Performing Lab: [facility] [address] [address] [place] LIVER FUNCTION ALANINE AMINOTRANS FERASE [ENZYMATIC ACTIVITY/V OLUME] IN SERUM OR PLASMA 24 U/L 11/06 Specimen Type: SERUM No comment entered. Ordering Provider: TYLER ARBOLEDA A Report Released Date/Time: August 17, 2023 01:25 PM Reporting Lab: [facility] [address] [address] Performing [facility]: [facility] [address] [address] [facility] L[facility] FUNCTION BILIRUBIN. TOTAL [MASS/VOLU ME] IN SERUM OR PLASMA 0.4 mg/dL 0.2 - 1.2 11/06 Specimen Type: SERUM No comment entered. Ordering Provider: TYLER ARBOLEDA A Report Released Date/Time: August 17, 2023 01:25 PM Reporting Lab: [facility] [address] [address] Performing Lab: [facility] [address] [facility] [address] [place] MAGNESIU M MAGNESIUM [MASS/VOLU ME] IN SERUM OR PLASMA 1.9 mg/dL 1.6 - 2.6 11/06 Specimen Type: SERUM No comment entered. Ordering Provider: TYLER ARBOLEDA A Report Released Date/Time: August 17, 2023 01:25 PM Reporting Lab: [facility] [address] [address] Performing Lab: [facility] [address] [address] [place] MICROALB UMIN CREATINI NE RATIO PANEL MICROALBUM IN/CREATIN INE [MASS RATIO] IN URINE cancmg/g 0 - 29.9 11/06 Specimen Type: URINE No comment entered. Ordering Provider: TYLER ARBOLEDA A Report Released Date/Time: August 17, 2023 01:25 PM Reporting Lab: [facility] [address] [address] Performing Lab: [facility] [address] [place] MICROALB UMIN CREATINI NE RATIO PANEL MICROALBUM IN [MASS/VOLU ME] IN URINE < 0.5mg/dL 11/06 Specimen Type: URINE No comment entered. Ordering Provider: TYLER ARBOLEDA A Report Released Date/Time: August 17, 2023 01:25 PM Reporting Lab: [facility] [address] Performing Lab: [facility] [address] [place] MICROALB UMIN CREATINI NE RATIO PANEL CREATININE [MASS/VOLU ME] IN URINE 128.85 mg/dL 11/06 Specimen Type: URINE No comment entered. Ordering Provider: TYLER ARBOLEDA A Report Released Date/Time: August 17, 2023 01:25 PM Reporting Lab: [facility] [address] [address] Performing Lab: [facility] [address] [address] [place] TSH THYROTROPI N [UNITS/VOL UME] IN SERUM OR PLASMA 1.16 u[IU]/mL 0.35 - 5.00 11/06 Specimen Type: SERUM No comment entered. Ordering Provider: TYLER ARBOLEDA A Report Released Date/Time: August 17, 2023 01:25 PM Reporting Lab: [facility] [address] [address] Performing Lab: [address] [address] [place] URINALYS IS COLOR OF URINE Yellow 11/06 Specimen Type: URINE Comment: If Glucose = >500 and Ketones are positive, please alert the Physician. Ordering Provider: TYLER ARBOLEDA A Report Released Date/Time: August 17, 2023 01:25 PM Reporting [facility]: [facility] [address] [address] Performing Lab: [address] [address] [place] URINALYS IS APPEARANCE OF URINE Turbid 11/06 Specimen Type: URINE Comment: If Glucose = >500 and Ketones are positive, please alert the Physician. Ordering Provider: TYLER ARBOLEDA A Report Released Date/Time: August 17, 2023 01:25 PM Reporting Lab: [facility] [address] [address] Performing Lab: [facility] [address] [address] [place] URINALYS IS GLUCOSE [MASS/VOLU ME] IN URINE NEGATIVE mg/dL 11/06 Specimen Type: URINE Comment: If Glucose = >500 and Ketones are positive, please alert the Physician. Ordering Provider: TYLER ARBOLEDA A Report Released Date/Time: August 17, 2023 01:25 PM Reporting Lab: [facility] [address] Performing Lab: [facility] [address] [address] [place] URINALYS IS KETONES [MASS/VOLU ME] IN URINE BY TEST STRIP NEGATIVE mg/dL 11/06 Specimen Type: URINE Comment: If Glucose = >500 and Ketones are positive, please alert the Physician. Ordering Provider: TYLER ARBOLEDA A Report Released Date/Time: August 17, 2023 01:25 PM Reporting Lab: [address] [address] Performing Lab: [address] [address] [place] URINALYS IS ERYTHROCYT ES [PRESENCE] IN URINE SEDIMENT BY LIGHT MICROSCOPY NEGATIVE mg/dL 11/06 Specimen Type: URINE Comment: If Glucose = >500 and Ketones are positive, please alert the Physician. Ordering Provider: TYLER ARBOLEDA A Report Released Date/Time: August 17, 2023 01:25 PM Reporting Lab: [address] [address] Performing Lab: [address] [address] [place] URINALYS IS PROTEIN [MASS/VOLU ME] IN URINE BY TEST STRIP NEGATIVE mg/dL 11/06 Specimen Type: URINE Comment: If Glucose = >500 and Ketones are positive, please alert the Physician. Ordering Provider: TYLER ARBOLEDA A Report Released Date/Time: August 17, 2023 01:25 PM Reporting Lab: [address] [address] Performing Lab: [address] [address] [place] URINALYS IS NITRITE [PRESENCE] IN URINE NEGATIVE mg/dL 11/06 Specimen Type: URINE Comment: If Glucose = >500 and Ketones are positive, please alert the Physician. Ordering Provider: TYLER ARBOLEDA A Report Released Date/Time: August 17, 2023 01:25 PM Reporting Lab: [address] [address] Performing Lab: [address] [address] [place] URINALYS IS BILIRUBIN. TOTAL [PRESENCE] IN URINE NEGATIVE mg/dL 11/06 Specimen Type: URINE Comment: If Glucose = >500 and Ketones are positive, please alert the Physician. Ordering Provider: TYLER ARBOLEDA A Report Released Date/Time: August 17, 2023 01:25 PM Reporting Lab: [address] [address] Performing Lab: [address] [address] [place] URINALYS IS SPECIFIC GRAVITY OF URINE BY REFRACTOME TRY 1.024 1.016 - 1.022 11/06 H Specimen Type: URINE Comment: If Glucose = >500 and Ketones are positive, please alert the Physician. Ordering Provider: TYLER ARBOLEDA A Report Released Date/Time: August 17, 2023 01:25 PM Reporting Lab: [address] [address] Performing Lab: [address] [address] [place] URINALYS IS PH OF URINE BY TEST STRIP 6.0 5.0 - 9.0 11/06 Specimen Type: URINE Comment: If Glucose = >500 and Ketones are positive, please alert the Physician. Ordering Provider: TYLER ARBOLEDA A Report Released Date/Time: August 17, 2023 01:25 PM Reporting Lab: [address] [address] Performing Lab: [address] [address] [place] URINALYS IS UROBILINOG EN [MASS/VOLU ME] IN URINE BY TEST STRIP <2.0mg/d L <2.0 - 2.0 11/06 Specimen Type: URINE Comment: If Glucose = >500 and Ketones are positive, please alert the Physician. Ordering Provider: TYLER ARBOLEDA A Report Released Date/Time: August 17, 2023 01:25 PM Reporting Lab: [address] [address] Performing Lab: [address] [address] [place] URINALYS IS LEUKOCYTE ESTERASE [PRESENCE] IN URINE BY TEST STRIP NEGATIVE 11/06 Specimen Type: URINE Comment: If Glucose = >500 and Ketones are positive, please alert the Physician. Ordering Provider: TYLER ARBOLEDA A Report Released Date/Time: August 17, 2023 01:25 PM Reporting Lab: [address] [address] Performing Lab: [address] [address] [place] VITAMIN B12 COBALAMIN (VITAMIN B12) [MASS/VOLU ME] IN SERUM OR PLASMA 424 pg/mL 200 - 900 11/06 Specimen Type: SERUM No comment entered. Ordering Provider: TYLER ARBOLEDA A Report Released Date/Time: August 17, 2023 01:25 PM Reporting Lab: [address] [address] Performing Lab: [address] [address] [place] VITAMIN D (25-OH) 25-HYDROXY VITAMIN D3 [MASS/VOLU ME] IN SERUM OR PLASMA 28 ng/mL 20 - 50 11/06 Specimen Type: SERUM No comment entered. Ordering Provider: TYLER ARBOLEDA A Report Released Date/Time: August 17, 2023 01:25 PM Reporting Lab: [address] [address] Performing Lab: [address] [address] [place] Vital Signs Combined list of inpatient and outpatient Vital Signs from Department of Defense and Veterans Affairs, ranging from 12 months to all on record, depending upon the facility. Vital Sign Value Date Comments Source SYSTOLIC BLOOD PRESSURE 109 02/26/20 13:11:41 [facility] DIASTOLIC BLOOD PRESSURE 58 13:11:41 [facility] PULSE OXIMETRY 94 02/26/2024 13:11:41 [facility] WEIGHT 183.2 02/26/2024 13:11:41 [facility] BMI 26kg/m2 02/26/2024 13:11:41 [facility] TEMPERATURE 97.2 02/26/2024 13:11:41 [facility] PULSE 56 02/26/2024 13:11:41 [facility] SYSTOLIC BLOOD PRESSURE 159 09/10/19 11:32:13 [facility] [place] [facility] DIASTOLIC BLOOD PRESSURE 63 11:32:13 [facility] [place] [facility] PULSE OXIMETRY 97 09/10/2023 11:32:13 [facility] [place] [facility] PAIN 0 09/10/2023 11:32:13 [facility] [place] [facility] PULSE 54 09/10/2023 11:32:13 [facility] [place] [facility] SYSTOLIC BLOOD PRESSURE 134 08/07/19 15:14:54 [facility] DIASTOLIC BLOOD PRESSURE 69 15:14:54 [facility] PULSE OXIMETRY 97 08/07/2023 15:14:54 [facility] WEIGHT 193 08/07/2023 15:14:54 [facility] BMI 28kg/m2 08/07/2023 15:14:54 [facility] HEIGHT 70 08/07/2023 15:14:54 [facility] TEMPERATURE 98.3 08/07/2023 15:14:54 [facility] PULSE 54 08/07/2023 15:14:54 [facility] RESPIRATION 18 08/07/2023 15:14:54 [facility] SYSTOLIC BLOOD PRESSURE 152 06/30/19 10:28:55 [facility] DIASTOLIC BLOOD PRESSURE 78 024 10:28:55 [facility] PULSE OXIMETRY 98 06/30/2023 10:28:[address] [facility] WEIGHT 203 06/30/2023 10:28:55 [facility] BMI 29kg/m2 06/30/2023 10:28:55 [facility] PAIN 0 06/30/2023 10:28:55 [facility] TEMPERATURE 97.3 06/30/2023 10:28:55 [facility] PULSE 98 06/30/2023 10[facility]28:[facility] 18 06/30/2023 10:28:55 [facility] HEIGHT 70 06/23/2023 12:48:00 [facility] Encounters Combined list of: 1) Encounters from Department of Veterans Affairs facilities going back up to thelast 18 months. 2) Encounters from the Department of Defense facilities going back up to 280 months. 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
YAZAN ANDERSON S 02/[address] [place] [address] [facility] En[facility] [id number] 03/25 [facility] OFF/OP EST MAY X REQ PHY/QHP [id number] Diagnos is: ICD-10- CM Z23 Encount er for immuniz ation<b r/> JIMMY FOOTE 03/25 [facility] OFFICE O/P EST MOD 30-39 MIN [id number] Diagnos is: ICD-10- CM F43.10 Post-tr aumatic stress disorde r, unspeci fied
GAGANDEEP EWDARD RRIE N 03/25 [facility] Outpatient Encounter [id number] 03/25 [facility] Outpatient Encounter [id number] 03/31 [facility] Outpatient Encounter [id number] 04/16 [facility] Outpatient Encounter [id number] 04/[address] HEARING AID REPAIR/MOD IFYING [id number] Diagnos is: ICD-10- CM Z46.1 Encount er for fitting and adjustm ent of hearing aid<br/ > CA BLAKE 05/[address] [place] [address] HEARING AID FITTING/CH ECKING [id number] Diagnos is: ICD-10- CM Z46.1 Encount er for fitting and adjustm ent of hearing aid<br/ > CA BLAKE 05/[address] [place] [address] OFFICE O/P EST MOD 30 MIN [id number] Diagnos is: ICD-10- CM L30.8 Other specifi ed dermati tis<br/ > JANESSA MERRITT 05/[address] HEARING AID REPAIR/MOD IFYING [id number] Diagnos is: ICD-10- CM Z46.1 Encount er for fitting and adjustm ent of hearing aid<br/ > MAGANMAR Y F 05/[address] [place] [address] HEARING AID FITTING/CH ECKING [id number] Diagnos is: ICD-10- CM Z46.1 Encount er for fitting and adjustm ent of hearing aid<br/ > MAGAN,MAR Y F 06/[address] [place] [address] HC PRO PHONE CALL 11-20 MIN [id number] Diagnos is: ICD-10- CM R68.89 Other general symptom s and signs<b r/> MARILEE ARIAS 06/22 [facility] Outpatient Encounter [id number] 06/25 [facility] OFFICE O/P EST LOW 20 MIN [id number] Diagnos is: ICD-10- CM J44.9 Chronic obstruc tive pulmona ry disease , unspeci fied
KRISTINE MORROW 06/29 [facility] Outpatient Encounter [id number] 06/[address] Outpatient Encounter [id number] 07/[address] [place] [address] [facility] En[facility] [id number] 07/17 [facility] En[facility] [id number] 08/05 [facility] Encounter [id number] 08/06 [place] [facility] [place] [facility] OFFICE O/P EST HI 40 MIN [id number] Diagnos is: ICD-10- CM J96.11 Chronic respira tory failure with hypoxia
ERLINDA ARBOLEDA A 08/06 [facility] [place] [facility] Outpatient Encounter [id number] 08/06 [facility] [place] [facility] ELECTR[facility] REPORT [id number] Diagnos is: ICD-10- CM Z13.6 Encount er for screeni ng for cardiov ascular disorde rs
TINO LABOY 08/06 [facility] [place] [facility] ELECTROCAR DIOGRAM TRACING [id number] SHI GUERRERO 08/06 [facility] [place] [place] [facility] Outpatient Encounter [id number] Diagnos is: ICD-10- CM I48.0 Paroxys mal atrial fibrill ation<b r/> HERNANDEZ GEE 08/10 [facility] [place] [facility] QNHP OL DIG ASSMT&MGMT 11-20 [id number] Diagnos is: ICD-10- CM I48.0 Paroxys mal atrial fibrill ation<b r/> GUNJAN BRONSON 08/[address] [facility] [address] [facility] [place] [facility] Outpatient Encounter [id number] 08/10 [facility] [place] [facility] [place] OFF/OP EST AUGUST X REQ PHY/QHP [id number] Diagnos is: ICD-10- CM Z71.89 Other specifi ed drug abuse counselor ing<br/ > JENNIFER MOORE 08/13 [facility] Outpatient Encounter [id number] 08/14 [facility] [place] [facility] TTE W/DOPPLER COMPLETE [id number] Diagnos is: ICD-10- CM I48.0 Paroxys mal atrial fibrill ation<b r/> BRINARICHMOND PEDRO 08/17 [facility] [place] [facility] OFF[facility] O/P EST LOW 20 MIN [id number] Diagnos is: ICD-10- CM I48.0 Paroxys mal atrial fibrill ation<b r/> JERMANSHANITATINO 08/17 [facility] [place] [facility] Outpatient Encounter [id number] 08/24 [facility] [place] [facility] [place] UNLISTED SPEC DERM SVC/PX [id number] Diagnos is: ICD-10- CM Z13.89 Encount er for screeni ng for other disorde r
SHOBANDE,O LUBOWALE 08/24 [place] [facility] OFFICE O/P EST SF 10 MIN [id number] Diagnos is: ICD-10- CM L92.0 Granulo ma annular e
JORGE L SHIN PH J 08/24 [facility] Out[facility] En[facility] [id number] 08/24 [facility] [place] [facility] En[facility] [id number] 08/25 [facility] Encounter [id number] 08/25 [facility] Encounter [id number] 09/08 [facility] [place] [facility] TARGETED CASE MANAGEMENT [id number] Shaila ROMO 09/08 [facility] [place] [facility] ODONTOPLAS TY 1-2 TEETH [id number] Diagnos is: ICD-10- CM K08.531 Fractur ed dental restora tive materia l with loss of materia l
ELDER VALLEJO AM 09/09 [facility] [place] [facility] Out[facility] Encounter [id number] 09/18 [facility] [place] PSYCH DIAGNOSTIC EVALUATION [id number] Diagnos is: ICD-10- CM F43.12 Post-tr aumatic stress disorde r, chronic
ROHAN SCALES 09/22 [facility] Outpatient Encounter [id number] 09/25 [facility] QNHP OL DIG ASSMT&MGMT 5-10 [id number] Diagnos is: ICD-10- CM I48.20 Chronic atrial fibrill ation, unspeci fied
ROHAN RANGEL 09/25 [facility] [place] Outpatient Encounter [id number] 09/29 [facility] [place] [facility] [place] INTRAORAL FULL IMAGE SERIES [id number] Diagnos is: ICD-10- CM K03.6 Deposit s [accret ions] on teeth<b r/> MARCELINA CARREON 10/01 [facility] Outpatient Encounter [id number] 10/16 [facility] [place] [facility] [place] OFFICE O/P EST LOW 20 MIN [id number] Diagnos is: ICD-10- CM J96.11 Chronic respira tory failure with hypoxia
ROBLESERLINDA VID A 10/29 [place] HEARING AID REPAIR/MOD IFYING [id number] Diagnos is: ICD-10- CM Z46.1 Encount er for fitting and adjustm ent of hearing aid<br/ > BROOKSJABIER L 11/06 [place] [facility] Outpatient Encounter [id number] 1.11/12 [facility] [place] LD OFF/OP CONSLTJ NEW/EST HI 55 [id number] Diagnos is: ICD-10- CM F43.10 Post-tr aumatic stress disorde r, unspeci fied
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, right eye, moderat e stage<b r/> JOSE GREENE 11/13 [facility] [place] [facility] Outpatient Encounter [id number] 11/18 [facility] En[facility] [id number] 11/23 [facility] Encounter [id number] 11/23 [facility] Encounter [id number] 11/23 [facility] PSYCH DIAGNOSTIC EVALUATION [id number] Diagnos is: ICD-10- CM R41.3 Other amnesia
FEARING,BLAIRE COE A 11/30 [facility] En[facility] [id number] 1.12/01 [facility] Encounter [id number] 1.12/03 [facility] En[facility] [id number] 12/06 [facility] PSYCL/NR[place] T[place] [id number] Diagnos is: ICD-10- CM R41.3 Other amnesia
FEARING,[place] CAROLIN A 12/08 [facility] [place] Outpatient Encounter [id number] 12/24 [place] [facility] Encounter [id number] 12/24 [facility] En[facility] [id number] [facility] [place] EXTENDED VISUAL FIELD XM [id number] 1. 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 Diagnos is: ICD-10- CM Z46.1 Encount er for fitting and adjustm ent of hearing aid<br/ > Shaila BARDALES 01/01 [facility] Outpatient Encounter [id number] 01/08 [facility] Outpatient Encounter [id number] 01/15 [facility] FEE [id number] Diagnos is: ICD-10- CM F43.10 Post-tr aumatic stress disorde r, unspeci fied
Sandeep IYER 01/[address] [facility] OFFICE O/P EST LOW 20 MIN [id number] Diagnos is: ICD-10- CM F43.10 Post-tr aumatic stress disorde r, unspeci fied
ST TANIA HERNANDEZ 01/20 [place] [facility] CONFORMITY EVALUATION [id number] Diagnos is: ICD-10- CM Z46.1 Encount er for fitting and adjustm ent of hearing aid<br/ > Shaila BARDALES 02/04 [facility] INTRM OPH EXAM EST PATIENT [id number] 1. 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
ERLINDA ARBOLEDA VID A 02/25 [place] [facility] ADMN SARSCOV2 VACC 1 DOSE [id number] ERLINDA ARBOLEDA VID A 02/25 [facility] Out[facility] Encounter [id number] 03/17 [facility] Encounter [id number] 03/30 [facility] HEARING AID REPAIR/MOD IFYING [id number] Diagnos is: ICD-10- CM Z46.1 Encount er for fitting and adjustm ent of hearing aid<br/ > MILLIE OVALLES 04/15 [facility] Out[facility] En[facility] [id number] [facility] NQHP OL DIG ASSMT&MGMT 5-10 [id number] Diagnos is: ICD-10- CM Z79.01 correction (curren t) use of anticoa gulants
AIMEE,TATI GTZ JYOTI 04/23 [facility] En[facility] [id number] 1.04/23 [facility] Out[facility] Encounter [id number] 1.04/26 [facility] FEE [id number] Diagnos is: ICD-10- CM F43.10 Post-tr aumatic stress disorde r, unspeci fied
Sandeep IYER 04/[address] [facility] OFFICE O/P EST LOW 20 MIN [id number] Diagnos is: ICD-10- CM F43.10 Post-tr aumatic stress disorde r, unspeci fied
ST MARY EVEN G 04/28 [facility] Out[facility] Encounter [id number] [facility] [facility] [place] [facility] HEARING AID FITTING/CH ECKING [id number] Diagnos is: ICD-10- CM Z46.1 Encount er for fitting and adjustm ent of hearing aid<br/ > JABIER GUY 05/11 [facility] [place] [facility] Social History Combined list of available smoking, tobacco, and other social history from Department of Defense and Veterans Affairs facilities. Social History Type Response Date Comment Sourc e Tobacco smoking status NHIS VA-TOBACCO NEVER USED 08/06/2023 [facility] [place] [facility] History of tobacco use VA-TOBACCO NEVER USED 06/30/2023 [facility]/2022 [facility] OR MORE 10/11/2020 [facility] History of [facility] OR MORE 08/03/2019 [facility] History of [facility] OR MORE 06/03/2018 [facility] History of tobacco use QUIT TOBACCO >7 YEARS AGO 11/13/2017 [facility] History of tobacco use LIFETIME NON-USER OF TOBACCO 12/25/2016 [facility] History of tobacco use QUIT TOBACCO >7 YEARS AGO 01/25/2016 [facility] History of tobacco use CURRENT TOBACCO USER 12/14/2014 [facility] History of tobacco use QUIT TOBACCO >7 YEARS AGO 01/09/2010 [facility] History of tobacco use QUIT TOBACCO >7 YEARS AGO 01/10/2009 [facility] History of tobacco use QUIT TOBACCO >7 YEARS AGO 02/02/2008 [facility] Plan of Care List of future care activities from Department of Veterans Affairs facilities. Additional future care activities may be listed in the Assessment and Plan section. Date/Time Care Activity Care Activity Detail Noemyi anastasiya 05/26/2024 AMBULATORY - MEDICINE AMBULATORY - MEDICI NE PATRICK ZULUAGA [facility] 05/26/2024 AMBULATORY - PSYCHIATRY AMBULATORY - PSYC HIATRY [facility] [place] [facility] 05/26/2024 AMBULATORY - PSYCHIATRY AMBULATORY - PSYC HIATRY [facility] [place] [facility] 06/22/2024 AMBULATORY - MEDICINE AMBULATORY - MEDICI NE SONYA 06/22/2024 AMBULATORY - NONE AMBULATORY - NONE [facility] [place] [facility] 09/14/2024 AMBULATORY - MEDICINE AMBULATORY - MEDICI [facility] Advance Directives List of completed, amended, or rescinded Advance Directives on record at Department of [facility] facilities. An actual copy of the Directive is not included. Date Advance Directive Provider Source 08/25/2023 ADVANCE DIRECTIVE [facility]
--- OUTSIDE RECORDS SUMMARY | 2024-05-13 13:38 | XMS_ITS | Encounter Summary ---
Author Name [facility] [place] [facility] [place] [place] Address [address] [place] [address] Care Team Providers Care Loan Teller Name Role Phone ERNESTO ARBOLEDA Primary Care [...] PART B August 12, 2008 PART B [id number] [phone] Dawson YOUNGER PATIENT MEDICARE (WNR) MEDICARE (M) PART A August 12, 2008 PART A [id number] Dawson YOUNGER PATIENT MEDICARE (WNR) MEDICARE (M) PART B August 12, 2008 PART B [id number] Dawson YOUNGER PATIENT MEDICARE (WNR) MEDICARE (M) PART B August 12, 2008 PART B [id number] [phone] Dawson YOUNGER PATIENT MEDICARE (WNR) MEDICARE (M) PART A August 12, 2008 PART A [id number] Dawson YOUNGER PATIENT MEDICARE (WNR) MEDICARE (M) PART B August 12, 2008 PART B [id number] [phone] Dawson YOUNGER PATIENT MEDICARE (WNR) MEDICARE (M) PART A August 12, 2008 PART A [id number] [facility] Dawson YOUNGER PATIENT MEDICARE (WNR) MEDICARE (M) PART B August 12, 2008 PART B [id number] [facility] [phone] Dawson YOUNGER PATIENT MEDICARE (WNR) MEDICARE (M) PART A August 12, 2008 PART A [id number] [phone] Dawson YOUNGER PATIENT MEDICARE (WNR) MEDICARE (M) PART A August 12, 2008 PART A [id number] [phone] Dawson YOUNGER PATIENT MEDICARE PART D (WNR) PRESCRIPT ION PART D Apr 14, 2015 PART D [id number] [phone] Dawson YOUNGER PATIENT UNICARE PREFERRED PROVIDER ORGANIZAT ION (PPO) [facility] N August 12, 2008 [id number] [phone] Dawson YOUNGER PATIENT UNICARE MEDICARE SUPPLEMEN [facility] N August 12, 2008 [id number] [phone] Dawson YOUNGER PATIENT UNICARE-G. I.C. MEDICAL EXPENSE (OPT/PROF ) [facility] N August 12, 2008 [id number] [phone] Dawson YOUNGER PATIENT Selected Encounter This section includes the information on record at [place] for the Encounter. Date/Time Encounter Type Encounter Description Reason Provider Source Apr 28, 2024 01:01 PM OFFICE O/P EST LOW 20 MIN [facility] - IND ICD-10-CM F43.10 Post-traumatic stress disorder, unspecified LIU HERNANDEZ Javad Encounter Template Text not used by [place] Assessments - Encounter Diagnoses This section includes the primary and secondary diagnoses documented for the Encounter. Date/Time Primary/Secondary Diagnosis Diagnosis Name Provider Source Apr 28, 2024 01:30 PM PRIMARY Post-traumatic stress disorder, unspecified LIU HERNANDEZ Apr 28, 2024 01:30 PM SECONDARY Insomnia, unspecified LIU HERNANDEZ Apr 28, 2024 01:30 PM SECONDARY Unspecified dementia, moderate, with anxiety LIU HERNANDEZ Plan of Treatment: Future Appointments (+ 6 months) and Future Tests (+/- 45 days) The Plan of Treatment section includes future care activities for the patient from all [facility]. This section includes future appointments and future orders which are active, pending or scheduled. Future Appointments This section includes appointments that were scheduled to occur 6 months from the date of the Encounter, up to a maximum of 20 appointments. The data comes from all [place] treatment facilities. Appointment Date/Time Appointment Type Appointme nt Facility Name May 11, 2024 01:30 PM AMBULATORY - REHAB MEDICIN E [facility] [place] [facility] May 26, 2024 01:30 PM AMBULATORY - MEDICINE [facility] May 26, 2024 03:00 PM AMBULATORY - PSYCHIATRY [facility] [place] [facility] May 26, 2024 03:01 PM AMBULATORY - PSYCHIATRY [facility] [place] [facility] Jun 22, 2024 01:00 PM AMBULATORY - MEDICINE [facility] Jun 22, 2024 03:00 PM AMBULATORY - NONE [facility] [place] [facility] Sep 14, 2024 02:30 PM [facility] Advance Directives: All historical and current Section Date Range: From patient's date of to the date document was created. This section includes ALL of a patient's completed or amended [place] Advance and Rescinded Directives. The entries below indicate that a directive exists for the patient, but an actual copy is not included with this document. The data comes from all [place] facilities. Date Advance Directives Provider Source August 25, 2023 ADVANCE DIRECTIVE MICHELLE LEVINE [facility] Encounter Notes: All associated encounter notes This section contains the clinical notes associated to the Encounter. Date/Time Encounter Note(s) Provider Source Apr 28, 2024 01:08 PM PSYCHIATRY NOTE: LOCAL TITLE: PSYCHIATRY NOTE STANDARD TITLE: PSYCHIATRY NOTE DATE OF NOTE: APR 28, 2024@13:08 ENTRY DATE: APR 28, 2024@13:09:21 AUTHOR: LIU HERNANDEZ COSIGNER: URGENCY: STATUS: COMPLETED LOCATION: This is a CVT visit, patient was in the [facility] and seen by myself remotely from my home via synchronous telehealth equipment operated from the clinic with staff assistance. [place] gave their permission to hold visit via this equipment. CHART REVIEW: seen for initial MH consult 09/23/23, noting: is an 78 year old , , 100% [place] looking to transfer his PTSD treatment from [place] to here after relocating. He is only [...] about balance and falling. He shared with senior underwriter an acute injury where he injured his back about two weeks ago and did not go to the ER to be evaluated. Ore Sampler will place neuropsychological consult to assess his cognition and advised him to stop to be triaged by the nurse on his way out to assess his back injury. Still gets nightmares-- maybe once a month. Tries to avoid things that will remind him of it. DSM5 DIAGNOSES: PTSD, chronic SC: 70% for PTSD. Per Social Work intake, [place] reported: We were living in [place] for 18yrs, in [place], the weather just became too difficult for me bc of my breathing. I was in the hospital for a week last year bc of my COPD and asthma. When I told my that I thought it was time to move back, she didn't waste a minute to call her friends and tell them, she is very happy. They bought a home in [place], the same city they used to live in. They have friends and family here, some of their children and grandchildren are in [facility]. SC: POST-TRAUMATIC STRESS DISORDER (70%-SC) PRESENTATION AT TIME OF INITIAL VISIT WITH MYSELF 11/13/23: reports he and his moved from [place] in July 2023, noting he was originally from [facility] but moved to [place] after he retired and has returned here [...] CCB for ventricular rate control. + Agent Taylor exposure Then noted October 2023: 2. Chronic hypoxemic respiratory failure: 3. COPD - Chronic obstructive pulmonary disease: 2 L O2 dependent at all times although frequently nonadherent according to his . Not using oxygen during the visit. SPO2 ranging from 90 to 97% but mostly around 93%. Sees [facility] in [place] prior to moving here and was maintained [...] Followed with [facility]ology Dr. Guardado in [place]. Cardiology 1 consult placed today for continuation of care. informs that he had an echocardiogram last year but does not have that result. No records yet from Dr. Guardado in [place]. 5. PTSD - Post-traumatic stress disorder: Following with [facility]. 6. Obstructive sleep apnea 7. CKD stage 3: Unknown if stable. Getting labs today. 8. FAYE - Generalised anxiety disorder: Upcoming initial appointment with [facility] /. 9. Cognitive decline 10. CAD - Coronary Artery Disease (SCT [id number]): Maintained on statin, BB, DOAC. Continued. 11. Exposure to potentially hazardous substance 12. Glaucoma: Followed by [place] optometry. 13. Insomnia 14. Bilateral hearing loss 15. GERD - Gastro-Esophageal Reflux Disease (SCT [id number]): Asymptomatic since starting PPI. Continue omeprazole. 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 He also demonstrated weaknesses in processing speed, semantic/phonemic verbal fluency abilities, and with completing tasks of higher-level cognitive functioning (e.g., utilizing processing speed and working memory simultaneously on the [place] Making Tests). Based on the results of the current neuropsychological evaluation, the met DSM-5 criteria for a major neurocognitive disorder due to multiple etiologies. DIAGNOSIS: Based on the results of the current neuropsychological evaluation, the [place] met ICD-10 criteria for: -F02.81 Dementia in other diseases classified elsewhere, unspecified severity, without behavioral disturbance RECOMMENDATIONS: 1. Given that the [place] is experiencing global cognitive deficits, current neuroimaging, and specifically MRI studies may be helpful to elucidate cortical and /or subcortical abnormalities that may be causative in his cognitive decline. 2. A follow-up with neurology is strongly advised to better establish etiology and to identify prognosis and possible interventions, including pharmacological options such as cholinesterase inhibitor. 3. It remains critically important that the [place] maintain his compliance in taking all his prescribed medications. Noncompliance in following prescribed medication regimens could result in further cognitive declines. 4. Given results from the current evaluation, and given the cognitive declines demonstrated by the [place], it is recommended that he continue to refrain from driving or if he wishes to begin driving again, undergo a driving evaluation to determine whether he has the skills and abilities to continue to drive safely. A handout of facilities that conduct these types of evaluations will be given to the [place] during the feedback session and can be found at the following website: [email or web address] 12. Alcohol is known to have a negative impact on brain health. It is recommended that the [place] reduce his alcohol consumption or ideally abstain from alcohol INITIAL ASSESSMENT/ DIAGNOSIS AND RECOMMENDATIONS: Elbert presents with chronic PTSD with partial improvement on sertraline. He is taking Seroquel for sleep. Given potential adverse effects from this I suggested he return to trazodone which his recalls was helpful in the past. In addition I recommended he reduce his alcohol use. Consider resuming prazosin. NOTED AT LAST OP VISIT: Elbert continues to struggle with sleep. Otherwise doing [...] suggested he increase dose to 200mg QHS. PRESENTING SYMPTOMS AND CONDITION ON TODAY'S VISIT: Elbert is present with his . He reports no interval changes probably a little worse. I've fallen and passed out twice. So lightheaded all the time that when I stand I have to count to 10 before I start walking. He had an MRI last week. No results yet (previously scheduled). He no longer drives b/c of this. Onset a few months ago. BP good (recent 144/89). Mentally a little forgetful . REVIEW OF SYSTEMS MENTAL HEALTH: SLEEP: states trazodone helps with falling asleep MOOD: denies depression PTSD symptoms: it's the same, it comes and goes ANXIETY: denies ANGER/IRRITABILITY/AGGRESSION: Denies SUBSTANCE USE: Alcohol: 1 glass wine/day (up to 2 on occasion) Illegal/non-prescribed drugs: none TOBACCO: quit SLIM/HYPOMANIA: None evident PSYCHOTIC FEATURES: None evident Suicidal Thoughts/Intent/plan: denied Social Status/ Stressors: no changes CURRENT PSYCH meds: sertraline 200mg daily, trazodone 200mg QHS ADVERSE EFFECTS: none reported MED REC: no changes reported VS: 02/26/2024 13:11 97.2 56 109/58 183.2 LAB: EKG July 2023, sinus rhythm with premature atrial complexes, incomplete RBBB, left anterior fascicular block MENTAL STATUS EXAMINATION - Appearance and behavior: [...] CONDITION AND OVERALL PROGRESS TOWARD TREATMENT GOALS: is sleeping a little better since we increase dose Trazodone to 200mg QHS. However he is now c/o severe lightheadedness and dizziness. Therefore I asked him to stop trazodone and resume Seroquel as he previously found this effective w/o reported adverse effects. Also suggested he contact PCP to make sure there are no other cardiac issues going on. i. Severity of Illness: ()none ( x)mild ( )moderately ill ()severely ill ()very severely ill ii. Global Improvement: ()very much ()much ( )min ( )none (x)min worse (x)much worse ()very much worse iii. : RISK [...] for a follow-up appointment with myself in: 4 weeks, sooner if needed Additional Follow-Up instructions: 1. Reinforced: If urgent treatment is needed, call [phone] or go to the nearest Emergency Room 2. To schedule or change an appointment, inquire about medication refills, etc: call office number during normal office hours Diagnoses: PTSD - Post-traumatic stress disorder ([facility] [id number]) - Post-traumatic stress disorder, unspecified (ICD-10-CM F43.10) (Primary) Insomnia (SCT [id number]) - Insomnia, unspecified (ICD-10-CM G47.00) Dementia ([facility] [id number]) - Unspecified dementia, moderate, with anxiety (ICD-10- CM F03.B4) /gurwinder/ LIU HERNANDEZ M.D. Signed: 04/28/2024 13:33 LIU HERNANDEZ
--- OUTSIDE RECORDS SUMMARY | 2024-05-13 13:38 | XMS_ITS | Encounter Summary ---
Author Name [facility] [place] Organization [facility] [place] Address [address] [place] [address] Care Team Providers Care Director Talent Name Role Phone ERNESTO ARBOLEDA Primary Care [...] PART A August 12, 2008 PART A [id number] Dawson YOUNGER PATIENT MEDICARE (WNR) MEDICARE (M) PART B August 12, 2008 PART B [id number] Dawson YOUNGER PATIENT MEDICARE (WNR) MEDICARE (M) PART A August 12, 2008 PART A [id number] Dawson YOUNGER PATIENT MEDICARE (WNR) MEDICARE (M) PART B August 12, 2008 PART B [id number] Dawson YOUNGER PATIENT MEDICARE (WNR) MEDICARE (M) PART A August 12, 2008 PART A [id number] Dawson YOUNGER PATIENT MEDICARE (WNR) MEDICARE (M) PART B August 12, 2008 PART B [id number] Dawson YOUNGER PATIENT MEDICARE (WNR) MEDICARE (M) PART B August 12, 2008 PART B [id number] Dawson YOUNGER PATIENT MEDICARE (WNR) MEDICARE (M) PART A August 12, 2008 PART A [id number] Dawson YOUNGER PATIENT MEDICARE (WNR) MEDICARE (M) PART A August 12, 2008 PART A [id number] Dawson YOUNGER PATIENT MEDICARE (WNR) MEDICARE (M) PART B August 12, 2008 PART B [id number] Dawson YOUNGER PATIENT MEDICARE PART D (WNR) PRESCRIPT ION PART D Apr 14, 2015 PART D [id number] [phone] Dawson YOUNGER PATIENT UNICARE PREFERRED PROVIDER ORGANIZAT ION (PPO) [facility] August 12, 2008 [id number] Dawson YOUNGER PATIENT UNICARE MEDICARE SUPPLEMEN [place] [facility] N August 12, 2008 [id number] Dawson YOUNGER PATIENT UNICARE-G. I.C. MEDICAL EXPENSE (OPT/PROF ) [facility] N August 12, 2008 [id number] [phone] Dawson YOUNGER PATIENT Selected Encounter This section includes the information on record at [place] for the Encounter. Date/Time Encounter Type Encounter Description Reason Provider Source Nov 13, 2023 10:00 AM OFF/OP CONSLTJ NEW/EST [facility] - IND ICD-10-CM F43.10 Post-traumatic stress disorder, unspecified LIU HERNANDEZ [facility] Encounter Template Text not used by [place] Assessments - Encounter Diagnoses This section includes the primary and secondary diagnoses documented for the Encounter. Date/Time Primary/Secondary Diagnosis Diagnosis Name Provider Source Nov 13, 2023 10:50 AM PRIMARY Post-traumatic stress disorder, unspecified LIU HERNANDEZ Nov 13, 2023 10:50 AM SECONDARY Insomnia, unspecified LIU HERNANDEZ Plan of Treatment: Future Appointments (+ 6 months) and Future Tests (+/- 45 days) The Plan of Treatment section includes future care activities [facility] the [facility] [place] [facility] This section includes future appointments and future orders which are active, pending or scheduled. Future Appointments This section includes appointments that were scheduled to occur 6 months from the date of the Encounter, up to a maximum of 20 appointments. The data comes from all [place] treatment facilities. Appointment Date/Time Appointment Type Appointme nt Facility Name Nov 14, 2023 01:00 PM [facility]ULATORY [facility] [place] [facility] Nov 14, 2023 02:00 PM AMBULATORY [facility] [place] [facility] Dec 01, 2023 08:30 AM AMBULATORY - PS[facility]CHIATRY [facility] [place] [facility] Dec 09, 2023 03:00 PM AMBULATORY - PS[facility]IATRY [facility] [place] [facility] Dec 25, 2023 11:00 AM AMBULATORY - PS[facility]IATRY [facility] [place] [facility] Jan 01, 2024 01:30 PM AMBULATORY [facility]IC[facility] [place] [facility] [place] Jan 01, 2024 02:00 PM AMBULATORY [facility] [place] [facility] Jan 02, 2024 02:00 PM AMBULATORY - REHAB MEDICIN E [facility] [place] [facility] [place] Jan 21, 2024 02:30 PM AMBULATORY - PS[facility]IATRY [facility] [place] [facility] Jan 21, 2024 02:31 PM AMBULATORY - PS[facility]CHIATRY [facility] [place] [facility] [place] Feb 05, 2024 11:00 AM AMBULATORY - REHAB MEDICIN E [facility] [place] [facility] Feb 05, 2024 01:30 PM AM[facility]ULATORY [facility] MEDIC[facility] [place] [facility] Feb 26, 2024 01:00 PM [facility] [place] [facility] Apr 15, 2024 11:00 AM AMBULATORY - REHAB MEDICIN E [facility] [place] [facility] [place] Apr 20, 2024 02:00 PM AMBULATORY [facility] MEDIC[facility] [place] [facility] [place] Apr 22, 2024 10:00 AM AMBULATORY [facility] MEDIC[facility] [place] [facility] [place] Apr 28, 2024 01:00 PM AMBULATORY - PS[facility]CHIATRY [facility] [place] [facility] Apr 28, 2024 01:01 PM AMBULATORY - PS[facility]CHIATRY [facility] [place] [facility] [place] May 11, 2024 01:30 PM [facility] Active, Pending, and Scheduled Orders This section includes a listing of several types of active, pending, and scheduled orders, including clinic medications orders, diagnostic test orders, procedure orders and consult orders; where the start date of the order is 45 days before the date of the Encounter or 45 days after the date of theEncounter. The data comes from all [place] treatment facilities. Test Date/Time Test Type Test Details Facility Name Oct 02, 2023 11:26 AM Consult Order [facility] Cons Senior Electronics Technician's Choice [facility] Dec 12, 2023 11:03 AM Consult Order [facility] Cons Senior Electronics Technician's Choice [facility] Lab Results: +/- 30 days of the encounter This section includes the Chemistry and Hematology Lab Results on record with [place] for the patient. Radiology Reports and Pathology Reports are provided separately, in subsequent sections. Lab Results This section contains the Chemistry/Hematology Results that were resulted 30 days before or 30 daysafter the date of the Encounter. Date/Time Source Result Type Result - Unit Interpretation Reference Range Comment Nov 07, 2023 01:19 PM [facility] MICROALBUMIN CREATININE RATIO PANEL Spe cimen Type: URINE No comment entered. Ordering Provider: ERNESTO ARBOLEDA Report Released Date/Time: August 17, 2023 01:25 PM Reporting Lab: [facility] [address] [address] Performing Lab: [address] [address] MICROALBUMIN/C REATININE RATIO canc mg/g 0-29.9 MICROALBUMIN,Q UANTITATIVE < 0.5 mg/dL RR UNAVAIL CREATININE URINE 128.85 mg/dL Nov 07, 2023 01:19 PM [facility] URINALYSIS Specimen Type: URINE Comment: If Glucose = >500 and Ketones are positive, please alert the Physician. Ordering Provider: ERNESTO ARBOLEDA Report Released Date/Time: August 17, 2023 01:25 PM Reporting Lab: [address] [address] Performing Lab: [address] [address] UA COLOR Yellow Yellow UA APPEARANCE Turbid Clear UA GLUCOSE NEGATIVE mg/dL Negative UA KETONES NEGATIVE mg/dL Negative UA BLOOD NEGATIVE mg/dL Negative UA PROTEIN NEGATIVE mg/dL Negative UA NITRITE NEGATIVE mg/dL Negative UA BILIRUBIN NEGATIVE mg/dL Negative UA SPECIFIC GRAVITY 1.024 H 1.016-1.022 UA pH 6.0 5.0-9.0 UA UROBILINOGEN <2.0 mg/dL <2.0 UA LEUKOCYTE NEGATIVE Negative Nov 07, 2023 01:19 PM [facility] LIVER FUNCTION Specimen Type: SERUM No comment entered. Ordering Provider: ERNESTO ARBOLEDA Report Released Date/Time: August 17, 2023 01:25 PM Reporting Lab: [address] [address] Performing Lab: [address] [address] PROTEIN,TOTAL 6.4 g/dL 6.0-8.3 ALBUMIN 3.3 g/dL L 3.5-5.0 ALKALINE PHOSPHATASE 88 U/L 40-150 AST 16 U/L 5-34 ALT 24 U/L BILIRUBIN, TOTAL 0.4 mg/dL 0.2-1.2 Nov 07, 2023 01:19 PM [facility] CALCIUM Specimen Type: SERUM No comment entered. Ordering Provider: ERNESTO ARBOLEDA Report Released Date/Time: August 17, 2023 01:25 PM Reporting Lab: [address] [address] Performing Lab: [facility] [address] [address] CALCIUM 8.8 mg/dL 8.5-10.2 Nov 07, 2023 01:19 PM [facility] LIPID PANEL, NON FASTING Specimen Type: SERUM No comment entered. Ordering Provider: ERNESTO ARBOLEDA Report Released Date/Time: August 17, 2023 01:25 PM Reporting Lab: [address] [address] Performing Lab: [address] [address] CHOLESTEROL 134 mg/dL TRIGLYCERIDE 235 mg/dL H 0-150 LDL calculated 41 mg/dL 0-129 CHOL/HDL 2.9 HDL CHOLESTEROL 46 mg/dL 40-60 Nov 07, 2023 01:19 PM [facility] TSH Specimen Type: SERUM No comment entered. Ordering Provider: ERNESTO ARBOLEDA Report Released Date/Time: August 17, 2023 01:25 PM Reporting Lab: [address] [address] Performing Lab: [address] [address] TSH 1.16 u[IU]/mL 0.35-5.00 Nov 07, 2023 01:19 PM [facility] HEMOGLOBIN A1C PANEL Specimen Type: BLOOD Comment: [...] August 17, 2023 01:25 PM Reporting Lab: [address] [address] Performing Lab: [address] [address] HEMOGLOBIN A1C 5.9 H 4.0-5.6 Nov 07, 2023 01:19 PM [facility] MAGNESIUM Specimen Type: SERUM No comment entered. Ordering Provider: ERNESTO ARBOLEDA Report Released Date/Time: August 17, 2023 01:25 PM Reporting Lab: [address] [address] Performing Lab: [address] [address] MAGNESIUM 1.9 mg/dL 1.6-2.6 Nov 07, 2023 01:19 PM [facility] VITAMIN D (25-OH) Specimen Type: SERUM No comment entered. Ordering Provider: ERNESTO ARBOLEDA Report Released Date/Time: August 17, 2023 01:25 PM Reporting Lab: [address] [address] Performing Lab: [address] [address] VITAMIN D (25-OH) 28 ng/mL 20-50 Nov 07, 2023 01:19 PM [facility] VITAMIN B12 Specimen Type: SERUM No comment entered. Ordering Provider: ERNESTO ARBOLEDA Report Released Date/Time: August 17, 2023 01:25 PM Reporting Lab: [address] [address] Performing Lab: [address] [address] VITAMIN B12 424 pg/mL 200-900 Nov 07, 2023 01:19 PM [facility] PT & INR (PROTIME) Specimen Type: PLASMA No comment entered. Ordering Provider: ERNESTO ARBOLEDA Report Released Date/Time: August 17, 2023 01:25 PM Reporting Lab: [address] [address] Performing Lab: [address] [address] INR 1.1 PROTIME 11.9 s 10.0-13.1 Nov 07, 2023 01:19 PM [facility] BASIC METABOLIC PANEL (non-fasting) Spe cimen Type: SERUM No comment entered. Ordering Provider: ERNESTO ARBOLEDA Report Released Date/Time: August 17, 2023 01:25 PM Reporting Lab: [address] [place] [address] Performing Lab: [address] [address] UREA NITROGEN 19 mg/dL 7-25 GLUCOSE 99 mg/dL 65-100 SODIUM 139 mmol/L 135-145 POTASSIUM 4.3 mmol/L 3.5-5.0 CHLORIDE 105 mmol/L 100-110 CO2 29 meq/L 20-30 CREATININE, Serum 1.05 mg/dL 0.50-1.40 eGFR(CKD-EPI 2020) 72 mL/min >60 Nov 07, 2023 01:19 PM [facility] CBC AND DIFF (AUTO) Specimen Type: BLOOD No comment entered. Ordering Provider: ERNESTO ARBOLEDA Report Released Date/Time: August 17, 2023 01:25 PM Reporting Lab: [address] [address] Performing Lab: [address] [address] WBC 6.90 10*3/uL 4.50-11.00 RBC 4.40 10*6/uL [...] 10*3/uL 0.00-0.00 Nov 07, 2023 01:19 PM [facility] MICROSCOPIC AUTOMATED, URINE Specimen Type: URINE Comment: If Glucose = >500 and Ketones are positive, please alert the Physician. Ordering Provider: ERNESTO ARBOLEDA Report Released Date/Time: August 17, 2023 01:25 PM Reporting Lab: [facility] [address] [address] Performing Lab: [facility] [address] [address] UA WBC 0-5 /[HPF] 0-5 UA RBC 0-2 /[HPF] 0-3 UA AMORPHOUS CRYSTALS FEW /[HPF] Not Established Advance Directives: All historical and current Section Date Range: From patient's date of to the date document was created. This section includes ALL of a patient's completed or amended [place] Advance and Rescinded Directives. The entries below indicate that a directive exists for the patient, but an actual copy is not included with this document. The data comes from all [place] facilities. Date Advance Directives Provider Source August 25, 2023 ADVANCE DIRECTIVE [facility] Encounter Notes: All associated encounter notes This section contains the clinical notes associated to the Encounter. Date/Time Encounter Note(s) Provider Source Nov 13, 2023 09:57 AM TELEHEALTH CONSULT : LOCAL TITLE: CONSULT REPORT/[facility] VIDEO CONNECT PSYCHIATRIST NOTE STANDARD TITLE: TELEHEALTH CONSULT DATE OF NOTE: NOV 13, 2023@09:57 ENTRY DATE: NOV 13, 2023@10:12:24 AUTHOR: LIU HERNANDEZ EXP COSIGNER: URGENCY: STATUS: COMPLETED [facility] Video Connect (VVC) Standard Documentation VVC Clinician Resources Only: E911 (Emergency Call Relay Center): [phone] [facility] Crisis Line - 568 then press #1. MAIKOL Suicide Coordinator [phone], Ext. [phone]; Back-up Ext. [phone] [place] Police, Lucia LASSITER [phone] Introduction: Visit is being conducted by [place] Video Connect. identified with 2 identifiers: [X] Full Name [X] Date of [ ] VA ID Card Emergency Plan: Roosevelt confirmed and/or provided the following information in case of emergency or technology failure. PATIENT PHONE - PHONE NUMBER [CELLULAR] - Is patient phone number correct, if not, enter below: Roosevelt's phone number: SHANICE YOUNGER [address] [place], [place], [address] 's present location and address for appointment: same as above Roosevelt's emergency contact name and phone number: , [place] [phone] Roosevelt reported that location is private and safe: Yes Informed Consent: informed of the risks and benefits of Telehealth video care. has the right to refuse video services. If refuses video visit, a [id number] visit will be scheduled. verbalized consent for this video visit: Yes provided consent for any other persons present for visit: N/A If yes, who and relationship to patient: Secure visit: Visit was locked for security and privacy:Yes 60 min spent with patient, chart reviewed -- including intake note. Limits of confidentiality reviewed with pt -- [place] warning given (I reviewed rights and limits of confidentiality, mandatory reporting situations, duty to warn and protect, ie: if treatment team finds patient to be an acute danger to themselves or others, that this information could be relayed to a court of law and presented to a clinical admissions manager) SHANICE YOUNGER is a 78 year old MALE who presents for psychiatric evaluation on this date HISTORY OF PRESENT ILLNESS: CHART REVIEW: seen for initial MH consult 09/23/23, noting: is an 78 year old , , 100% [place] Roosevelt looking to transfer his PTSD treatment from [place] to here after relocating. He is only [...] about balance and falling. He shared with underwriter solicitation director an acute injury where he injured his back about two weeks ago and did not go to the ER to be evaluated. Geriatric Physical Therapist will place neuropsychological consult to assess his cognition and advised him to stop to be triaged by the nurse on his way out to assess his back injury. Still gets nightmares-- maybe once a month. Tries to avoid things that will remind him of it. DSM5 DIAGNOSES: PTSD, chronic SC: 70% for PTSD. Per Social Work intake, reported: We were living in [place] for 18yrs, in [place], the weather just became too difficult for me bc of my breathing. I was in the hospital for a week last year bc of my COPD and asthma. When I told my that I thought it was time to move back, she didn't waste a minute to call her friends and tell them, she is very happy. They bought a home in [place], the same city they used to live in. They have friends and family here, some of their children and grandchildren are in [facility]. SC: POST-TRAUMATIC STRESS DISORDER (70%-SC) PRESENTATION AT TIME OF INITIAL VISIT WITH MYSELF 11/13/23: Roosevelt reports he and his moved from [place] in July 2023, noting he was originally from [facility] but moved to [place] after he retired and has returned here [...] Medication Trials: temazepam 15mg, celexa, mirtazapine, prazosin 4mg trazodone 50mg CURRENT MEDICATIONS: quetiapine 100mg QHS, [...] CCB for ventricular rate control. 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 CURRENT MEDICATIONS : Active Outpatient Medications (including Supplies): Active Outpatient Medications Status ===== 1) ALBUTEROL 90MCG (CFC-F) 200D ORAL INHL INHALE 2 PUFFS ACTIVE BY MOUTH FOUR TIMES DAILY NEEDED FOR BRONCHOSPASM 2) ATORVASTATIN CALCIUM 80MG TAB TAKE ONE TABLET BY ACTIVE MOUTH ONCE DAILY FOR HIGH CHOLESTEROL 3) DABIGATRAN ETEXILATE 150MG ORAL CAP TAKE ONE CAPSULE ACTIVE BY MOUTH TWICE DAILY TO PREVENT BLOOD CLOTS (ONCE OPENED, THE MEDICATION MUST BE USED WITHIN 4 MONTHS) 4) DILTIAZEM (EQV-CARDIZEM) 240MG 24HR CAP TAKE ONE ACTIVE CAPSULE BY MOUTH ONCE DAILY FOR ATRIAL FIBRILLATION 5) DOXYCYCLINE HYCLATE 100MG TAB TAKE ONE TABLET BY ACTIVE MOUTH TWICE DAILY UPPER RESPIRATORY INFECTION 6) EZETIMIBE 10MG TAB TAKE ONE TABLET BY MOUTH ONCE ACTIVE DAILY TO LOWER CHOLESTEROL 7) FUROSEMIDE 20MG TAB TAKE ONE TABLET BY MOUTH ONCE ACTIVE DAILY NEEDED FOR VISIBLE WATER RETENTION TO REMOVE FLUID/CONTROL BLOOD PRESSURE 8) METOPROLOL SUCCINATE 50MG SA TAB TAKE ONE TABLET BY ACTIVE MOUTH ONCE DAILY FOR BLOOD PRESSURE/HEART 9) OMEPRAZOLE 20MG EC CAP TAKE ONE CAPSULE BY MOUTH ACTIVE EVERY MORNING 30 MINUTES BEFORE BREAKFAST FOR GASTROESOPHAGEAL REFLUX DISEASE 10) PRIMIDONE 50MG TAB TAKE ONE TABLET BY MOUTH ONCE ACTIVE DAILY FOR SIMPLE SEIZURE 11) QUETIAPINE FUMARATE 100MG TAB TAKE ONE TABLET BY ACTIVE MOUTH AT BEDTIME FOR ANXIETY 12) SERTRALINE HCL 100MG TAB TAKE ONE TABLET BY MOUTH ACTIVE ONCE DAILY FOR POSTTRAUMATIC STRESS SYNDROME PAST MEDICAL HISTORY: Active problems - Computerized Problem List is the source for the followin. Long-term current use of anticoagulant 2. Chronic hypoxemic respiratory failure 3. COPD - Chronic obstructive pulmonary disease 4. PAF - Paroxysmal atrial fibrillation 5. PTSD - Post-traumatic stress disorder 6. Obstructive sleep apnea 7. CKD stage 3 8. FAYE - Generalised anxiety disorder 9. Cognitive decline 10. CAD - Coronary Artery Disease ([facility] [id number]) 11. Exposure to potentially hazardous substance 12. Glaucoma 13. Insomnia 14. Bilateral hearing loss 15. GERD - Gastro-Esophageal Reflux Disease ([facility] [id number]) VS/ RECENT LABS: SVS - Vital Signs Selected (max 6 months) Measurement DT HEIGHT WEIGHT BP PULSE IN(CM) LB(KG)[BMI] 09/10/2023 11:32 159/63 54 08/07/2023 15:14 70(177.80) 193(87.54)[28*] 134/69 54 Chem 7 w/ EGFR (max 6 months) Collection DT Spec Sodium K+/Pot CL CO2 GLUCOSE BUN eGFR(CK 11/07/2023 13:19 SERUM 139 4.3 105 29 99 19 72 SCL1 - Hemoglobin A1C trend (max 6 months) Collection DT Spec HGBA1c 11/07/2023 13:19 BLOOD 5.9 H SCL2 - Lipid Panel (max 6 months) Collection DT Spec CHOL TRIG LDL-c CHO/HDL HDL 11/07/2023 13:19 SERUM 134 235 H 41 2.9 46 SCLU - Liver panel (max 6 months) Collection DT Spec T. PROT ALBUMIN ALK NIURKA AST ALT T BILI 11/07/2023 13:19 SERUM 6.4 3.3 L 88 16 24 0.4 ALLERGIES:LISINOPRIL MENTAL STATUS EXAMINATION - Appearance and behavior: Appears stated age, appropriately groomed and dressed, pleasant and cooperative - Speech and language: without impairment of rate, rhythm, inflection, volume, or fluency, without latency - Mood: as noted above - Affect: without lability or agitation - Thought Process: Linear, logical; no loosening of associations or FOI - Thought Content: without delusions (paranoia, thought broadcasting, thought withdrawal, thought insertion, ideas of reference) - Perceptions: Denies auditory and visual hallucinations - IMPULSES/HARM: - Wishes to be ? no - Thoughts/plan/intention of killing self? no - Homicidal ideation, plan, intent, actions: denied - Reasons for living identified: I have a great . We do almost everything together. I have 2 children and 3 grandchildren that I'm very proud of - Lethal means assessment: NO weapons are in the home - Cognition: fully oriented to self/time/place - Insight: no impairment evident - Judgment: no impairment evident INITIAL ASSESSMENT/ DIAGNOSIS AND RECOMMENDATIONS: presents with chronic PTSD with partial improvement on sertraline. He is taking Seroquel for sleep. Given potential adverse effects from this I suggested he return to trazodone which his recalls was helpful in the past. In addition I recommended he reduce his alcohol use. Consider resuming prazosin. DISCUSSION: reviewed and discussed medication options: risks, side effects and alternatives understood and accepted; answered patient questions. This also included discussion of potential drug interactions with the psychiatric medication. Patient demonstrated reasonable understanding of the medication side effects and the above issues. The benefits of psychiatric medications outweigh risks for this patient. Pt consents to medication treatment RISK: no evidence of acute risk of harm to self or others. PLAN OF CARE Medications: as noted above Diagnostic Workup: - LABS: none ordered/required Referrals: 1. PC: Follow up with your PCP as scheduled. 2. Psychotherapy Referral: ( ) yes ( x) no 3. Urgent Care / PCP Referral: None needed at this time 4. Nutrition Referral/ plan for elevated BMI: ( )recommended weight loss and regular exercise ( x ) n/a 5. Other Specialty Referrals: None needed at this time FOLLOW-UP: initial follow up with myself in 4 weeks; sooner if needed to Open Access. To schedule or change an appointment, inquire about medication refills, etc: call office number during normal office hours PREVENTION: (x ) Pt agrees to contact provider sooner if SI/HI onset or worsen ( x ) Pt agreed to adhere to [place] plan ( x ) Pt is aware of 911/ Crisis Line (988) emergency services and will utilize if needed MEDICAL NECESSITY: ( x ) improve/ prevent decline in functioning ( ) Prevent hospitalization ( ) Sustain goals ( ) Solidify new coping skills /es/ LIU HERNANDEZ M.D. Signed: 11/13/2023 10:51 LIU HERNANDEZ [facility]
--- OUTSIDE RECORDS SUMMARY | 2024-05-13 13:38 | XMS_ITS | Encounter Summary ---
Author Name [facility] Organization [facility] [place] Address [address] [place] [address] Care Team Providers Care Care Transitions Manager Name Role Phone ERNESTO ARBOLEDA Primary Care [...] PART B August 12, 2008 PART B [id number] Dawson YOUNGER PATIENT MEDICARE (WNR) MEDICARE (M) PART A August 12, 2008 PART A [id number] Dawson YOUNGER PATIENT MEDICARE (WNR) MEDICARE (M) PART B August 12, 2008 PART B [id number] Dawson YOUNGER PATIENT MEDICARE (WNR) MEDICARE (M) PART B August 12, 2008 PART B [id number] Dawson YOUNGER PATIENT MEDICARE (WNR) MEDICARE (M) PART A August 12, 2008 PART A [id number] Dawson YOUNGER PATIENT MEDICARE (WNR) MEDICARE (M) PART B August 12, 2008 PART B [id number] Dawson YOUNGER PATIENT MEDICARE (WNR) MEDICARE (M) PART A August 12, 2008 PART A [id number] [phone] Dawson YOUNGER PATIENT MEDICARE (WNR) MEDICARE (M) PART B August 12, 2008 PART B [id number] Dawson YOUNGER PATIENT MEDICARE (WNR) MEDICARE (M) PART A August 12, 2008 PART A [id number] [phone] Dawson YOUNGER PATIENT MEDICARE (WNR) MEDICARE (M) PART A August 12, 2008 PART A [id number] Dawson YOUNGER PATIENT MEDICARE PART D (WNR) PRESCRIPT ION PART D Apr 14, 2015 PART D [id number] [phone] Dawson YOUNGER PATIENT UNICARE PREFERRED PROVIDER ORGANIZAT ION (PPO) [facility] August 12, 2008 [id number] Dawson YOUNGER PATIENT UNICARE MEDICARE [facility]MEN F[facility]AD [facility] August 12, 2008 [id number] Dawson YOUNGER PATIENT UNICARE-G. I.C. MEDICAL EXPENSE (OPT/PROF ) [facility] N August 12, 2008 [id number] Dawson YOUNGER PATIENT Selected Encounter This section includes the information on record at [place] for the Encounter. Date/Time Encounter Type Encounter Description Reason Pro vider Source Sep 26, 2023 12:33 PM Outpatient Encounter ADMIN PAT ACTIVTIES (MASNONCT) IHE Encounter Template Text not used by [place] Plan of Treatment: Future Appointments (+ 6 months) and Future Tests (+/- 45 days) The Plan of Treatment section includes future care activities for the [facility] [place] [facility] This section includes future appointments and [...] AMBULATORY - NONE [facility] [place] [facility] Oct 30, 2023 02:30 PM AMBULATORY - MEDICINE [facility] Nov 07, 2023 01:00 PM AMBULATORY - [facility]AB [facility] [place] Nov 13, 2023 10:00 AM AMBULATORY - PSYCHIATRY [facility] [place] [facility] Nov 13, 2023 02:00 PM AMBULATORY - MEDICINE [facility] [place] [facility] Nov 14, 2023 01:00 PM AMBULATORY - MEDICINE [facility] [place] [facility] Nov 14, 2023 02:00 PM AMBULATORY - MEDICINE [facility] [place] [facility] Dec 01, 2023 08:30 AM AMBULATORY - PSYCHIATRY [facility] [place] [facility] Dec 09, 2023 03:00 PM AMBULATORY - PSYCHIATRY [facility] [place] [facility] Dec 25, 2023 11:00 AM AMBULATORY - PS[facility]CHIATRY [facility] [place] [facility] Jan 01, 2024 01:30 PM AMBULATORY - MEDICINE [facility] [place] [facility] Jan 01, 2024 02:00 PM AMBULATORY - MEDICINE [facility] [place] [facility] Jan 02, 2024 02:00 PM AMBULATORY - REHAB MEDICIN E [facility] [place] [facility] Jan 21, 2024 02:30 PM AMBULATORY - PSYCHIATRY [facility] [place] [facility] Jan 21, 2024 02:31 PM AMBULATORY - PSYCHIATRY [facility] [place] [facility] Feb 05, 2024 11:00 AM AMBULATORY - REHAB MEDICIN E [facility] [place] [facility] Feb 05, 2024 01:30 PM AMBULATORY - MEDICINE [facility] [place] [facility] Feb 26, 2024 01:00 PM AMBULATORY - MEDICINE [facility] Active, Pending, and Scheduled Orders [...] AM Consult Order COMMUNITY CARE-DENTAL GENERAL Cons Driving Teacher's Choice [place] [facility] Advance Directives: All historical and current [...] Encounter. Date/Time Encounter Note(s) Provider Source Sep 26, 2023 12:33 PM [facility] NOTE: LOCAL TITLE: ANTICOAGULATION MONITORING NOTE STANDARD TITLE: [facility]TICO[facility] NOTE DATE OF NOTE: SEP 26, 2023@12:33 ENTRY DATE: SEP 26, 2023@12:33:08 AUTHOR: VERA GUTIERREZ EXP COSIGNER: URGENCY: STATUS: COMPLETED SUBJECTIVE: Drug: Dabigatran Indication: Atrial Fibrillation/Flutter Anticipated duration of anticoagulant therapy: Indefinite/extended (no anticipated stop date) Patient identified as needing review for the following: Adherence (overdue for refill) Medication renewal OBJECTIVE: Active VA and non-VA medication lists, pertinent laboratory tests (i.e., H/H, Plts, SCr, LFTs, Anti-Xa, etc), recent progress notes, and other pertinent objective data were reviewed. Height: 70 in [177.8 cm] (06/23/2023 12:48) Weight: 203 lb [92.08 kg] (06/30/2023 10:28) 29.2 [facility] - Lab Cum Selected Collection DT Spec WBC Hgb Hct Plts BUN Creat EGFR 06/26/2023 08:30 PLASM 15 1.3 56 06/26/2023 08:30 BLOOD 6.75 14.2 44.5 231.0 06/26/2023 08:30 URINE 99.2 Collection DT Spec ALT AST Albumi Protein DirBili TotBili AlkPhos 06/26/2023 08:30 PLASM 21 16 3.9 L 6.9 0.1 0.4 91 ASSESSMENT/PLAN: Other: [place] receiving care at local [place]. Will alert Pharmacist to remove from clinic. For ongoing monitoring, a population-based approach will be used to ensure safety, adherence to therapy, and appropriateness of prescribing. Periodic risk/benefit assessments will be performed as necessary. anti PBM PharmD Pharmacotherapy Rem V12: PHARMACIST INTERVENTIONS: ANTICOAGULATION THERAPY DIRECT ORAL ANTICOAGULANT (DOAC) MANAGEMENT Medication monitoring, no dosage change required, continue to monitor and assess /gurwinder/ VERA GUTIERREZ Clinical Property Management Assistant Signed: 09/26/2023 12:36 Receipt Acknowledged By: 09/26/2023 12:43 /gurwinder/ Nesha CADED Clinical Pharmacist VERA GUTIERREZ [facility]
--- OUTSIDE RECORDS SUMMARY | 2024-05-13 13:38 | XMS_ITS | Clinical Summary ---
Author Organization [facility] Address [address] [place] [address] Phone Care Team Providers Care Duplicating Machine Operator Name Role Phone & Sports Medicine, [facility] Unavailable [phone] Kenney PARK MD, Chrsit Hernandez Unavailable [phone] Leti CUELLO, Maryan Rose Unavailable [phone] Junaid CUELLO, Bora Unavailable [phone] Andres CUELLO, Narendra Primary Care Provider [phone] Deni Bernabe MD Unavailable [phone] Gloria Morris PA-C Unavailable [phone] Edita CUELLO, Martinez Unavailable [phone] Cathy CUELLO, Sylvester Penaloza Unavailable + [phone] Smiley Calderon Unavailable [phone] Valery CUELLO, Dane Unavailable [phone] Colton Guardado MD Unavailable [phone] [place] DO Unavailable [phone] Kay CUELLO, Merle Unavailable [phone] Reason for Visit and Chief Complaint [facility] Medicare Follow Up Visit Problems Includes: Problems addressed during this encounter and other active Problems All Visits Onset Date Resolved Date Provider Condition S tatus 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 06/25/2021 Gloria Morris PA-C Active Last Documented On 04/02/2022 10:30AM ; [facility] Note: 50-69% left, non surgical [place] [address] gar, repeat in one year Diabetes Mellitus Type 2 with Complication 06/25/2021 Gloria BEARC Active Last Documented On 2 10:45AM ; [...] ; [facility] Edema 01/14/2019 Phiilp BECKER Active Last Documented On 9 2:52PM ; [facility] 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 Gloria MOFFETT-C Active Last Documented On 9 8:57AM ; [facility] Note: per pulm notedECHO with 45-50%, mi ldly reduced LVSF 06/2017 Osteoarthritis Localized Primary Knees Bilateral 04/03/2018 Juany MOFFETT-C Active Last Documented On 8 11:45AM ; [facility] 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 Narendra Campos MD Active Last Documented On 8 11:49AM ; [facility] Colon Polyps 06/20/2017 Martinez Kohler MD Active Last Documented On 8 11:24AM ; [facility] Atrial Fibrillation 10/10/2015 Narnedra Campos MD Active Last Documented On 6 9:16AM ; [facility] Note: s/p ablation Chronic Obstructive Pulmonary Disease 11/29/2013 aNrendra Campos MD Active Last Documented On 4 [...] Order Diagnosis Results Due Ordering P rovider Lab Neuropathy (RO) 04/29/23 Gloria Morris PA-C Last Documented On 4 3:03PM ; [facility] Lab Hemoglobin A1c 04/29/23 Gloria Morris PA-C Last Documented On 4 3:03PM ; [facility] Lab Antinuclear Antibodies, IFA 04/29/23 Gloria Morris PA-C Last Documented On 4 3:03PM ; [facility] Lab Vitamin B12 04/29/23 Gloria Chino Arturo PA-C Last Documented On 4 3:03PM ; [facility] Lab Basic Metabolic Panel (8) 04/29/23 Gloria Raman Morris PA-C Last Documented On 4 3:03PM ; [facility] Lab COMPLETE BLOOD COUNT 04/29/23 Janay garcias Raman Morris PA-C Last Documented On 4 3:03PM ; [facility] Lab SED RATE, iSED 04/29/23 Glorianatividad thurmanpatricia Morris PA-C Last Documented On 4 3:03PM ; [facility] Lab Folate (Folic Acid), Serum 04/29/23 Gloria Raman MOFFETT-C Last Documented On 4 3:03PM ; [facility] Lab Thyroxine (T4) Free, Direct, S 04/29 Gloria Morris PA-C Last Documented On 4 3:03PM ; [facility] Lab Hepatitis A Ab, IgM 04/29/23 Christopher mckeon Raman Morris PA-C Last Documented On 4 3:03PM ; [facility] Lab Hepatitis A Ab, Total 04/29/23 Miguel henson Raman Morris PA-C Last Documented On 4 3:03PM ; [facility] Lab Hepatitis B Core Ab, Tot 04/29/23 Gloria Morris PA-C Last Documented On 4 3:03PM ; [facility] Lab Hepatitis B Surface Ag 04/29/23 helen Morris PA-C Last Documented On 4 3:03PM ; [facility] Lab HEPATITIS B CORE AB TOTAL W/REFL IGM 04/29/23 Gloria Morris PA-C Last Documented On 4 3:03PM ; [facility] Lab Hepatitis B Core Ab, IgM 04/29/23 Gloria Morris PA-C Last Documented On 4 3:03PM ; [facility] Lab Hepatic Function Panel (7) 04/29/23 Gloria Wileytoni MOFFETT-Shaila Last Documented On 4 3:03PM ; [facility] Lab Albumin/Creat Ratio Urine 04/29/23 Gloria Wileytoni Morris PA-C Last Documented On 4 3:03PM ; [facility] Lab RPR 04/29/23 Glorianatividad Morris PA-C Last Documented On 4 3:03PM ; [facility] Lab Protein Electro.,S 04/29/23 Gloria Raman MOFFETT-Shaila Last Documented On 4 3:03PM ; [facility] Lab TSH 04/29/23 Gloria Morris PA-C Last Documented On 4 3:03PM ; [facility] Lab Protein Electro, Random Urine Glorianatividad Morris PA-C Last Documented On 4 3:03PM ; [facility] Lab Vitamin D, 25-Hydroxy 04/29/23 Miguel henson Raman Morris PA-C Last Documented On 4 3:03PM ; [facility] Care Programs Check if Patient is Eligible for [facility] Services Last Documented On 8 12:04AM ; [facility] Future Tests Order Diagnosis Results Due Ordering Pr ovider Radiology Studies - Ultrasound U/S-Soft 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 04/18/21 Gloria Morris PA-C Last Documented On 1 10:13AM ; [facility] Radiology Studies - Vascular Ultrasound Carotid Doppler Dizziness and giddiness 05/15/21 Gloria MOFFETT-Shaila Last Documented On 2 10:33AM ; [facility] Refer To Neurology Dizziness and giddiness 06/07/21 Tremaine MOFFETT-Shaila Last Documented On 2 1:34PM ; [facility] Refer To ENT Dizziness and giddiness 06/07/21 Tremaine MOFFETT-C Last Documented On 2 1:34PM ; [facility] Refer To Cardiology Cardiac arrhythmia, unspecified 05/16 08/03 Gloria MOFFETT-C Last Documented On 2 1:49PM ; [facility] Refer To Surgery-Vascular Occlusion and s tenosis of left carotid artery 06/20/21 Gloria Morris PA-C Last Documented On 2 9:10AM ; [facility] Refer To Gastroenterology Polyp of colon 12/12/22 Janay garcias Raman MOFFETT-C Last Documented On 3 1:44PM ; [facility] Lab NEETA (RO1) 04/29/23 Gloria MOFFETT-C Last Documented On 4 8:52AM ; [facility] Lab CBC (RO1) 04/29/23 Gloria MOFFETT-C Last Documented On 4 8:52AM ; [facility] Lab Vitamin B12 (RO1) 04/29/23 Gloria Morris PA-C Last Documented On 4 8:52AM ; [facility] Lab Vitamin D 25 hydroxy (RO1) 04/29/23 Gloria MOFFETT-C Last Documented On 4 8:52AM ; [facility] Lab TSH , Free T4 (GVC) 04/29/23 Christopher linda Raman MOFFETT-Shaila Last Documented On 4 8:52AM ; [facility] Lab Diabetes Panel (RO) 05/22/23 Ra helen MOFFETT-Shaila Last Documented On 3 1:28PM ; [facility] Refer To Neurology Dizziness and giddiness 05/22/23 Tremaine MOFFETT-Shaila Last Documented On 4 8:55AM ; [facility] Refer To Physical Therapy Dizziness and giddiness Gloria MOFFETT-C Last Documented On 4 8:55AM ; [facility] Assessments Includes: Assessments from this encounter No Assessments Recorded Medical Equipment - Implanted Devices Includes: Current Devices No Medical Equipment Recorded Medications Includes: Medications discussed during this encounter and other current Medications Current Medications (continue as prescribed) Trelegy Ellipta [...] MCG/ACT Inhalation Aerosol Solution 07/19/2022 Provider: Frannie MODI P DNP PLATE DRILLER-BC Diagnosis: Shortness of tristin ath 2 puffs [...] On 1 4:45AM By Jessica BECKER ; [facility] Furosemide [...] 07/13/2020 Active Last Documented On 2:04PM ; [facility] Insurance Includes: Active Insurance Policies Plan Name Member ID Group # Subscriber Relationship Effect ana m Dates 1 - Medicare Part B [id number] Nick Oliva Self 2 - [employer] Serrnavarroe/ Jenniffer [id number] Nick Oliva Self 07/13 - Unknown Advance Directives Includes: Current Advance Directives Directive Pat Aware Third Libertarian Effective Date Reviewed [facility] Power of Supervisor Dry Cleaning/Healthcare Surrogate Yes 08/08/2017 Current and Verified Clinical Notes Includes: Clinical Notes from this encounter No Clinical Notes Recorded
--- OUTSIDE RECORDS SUMMARY | 2024-05-13 13:38 | XMS_ITS | Encounter Summary ---
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 Name Role Phone ERNESTO ARBOLEDA Primary Care [...] PART A August 12, 2008 PART A [id number] Dawson YOUNGER PATIENT MEDICARE (WNR) MEDICARE (M) PART B August 12, 2008 PART B [id number] Dawson YOUNGER PATIENT MEDICARE (WNR) MEDICARE (M) PART A August 12, 2008 PART A [id number] Dawson YOUNGER PATIENT MEDICARE (WNR) MEDICARE (M) PART B August 12, 2008 PART B [id number] [facility] Dawson YOUNGER PATIENT MEDICARE (WNR) MEDICARE (M) PART A August 12, 2008 PART A [id number] [phone] Dawson YOUNGER PATIENT MEDICARE (WNR) MEDICARE (M) PART B August 12, 2008 PART B [id number] Dawson YOUNGER PATIENT MEDICARE (WNR) MEDICARE (M) PART B August 12, 2008 PART B [id number] [facility] [phone] Dawson YOUNGER PATIENT MEDICARE (WNR) MEDICARE (M) PART A August 12, 2008 PART A [id number] Dawson YOUNGER PATIENT MEDICARE (WNR) MEDICARE (M) PART A August 12, 2008 PART A [id number] Dawson YOUNGER PATIENT MEDICARE (WNR) MEDICARE (M) PART B August 12, 2008 PART B [id number] Dawson YOUNGER PATIENT MEDICARE PART D (WNR) PRESCRIPT ION PART D Apr 14, 2015 PART D [id number] Dawson YOUNGER PATIENT UNICARE PREFERRED PROVIDER ORGANIZAT ION (PPO) [facility] August 12, 2008 [id number] Dawson YOUNGER PATIENT [facility]PPLE[facility] August 12, 2008 [id number] [id number] [phone] Dawson YOUNGER PATIENT UNICARE-G. I.C. MEDICAL EXPENSE (OPT/PROF ) [facility] N August 12, 2008 [id number] [phone] Dawson YOUNGER PATIENT Selected Encounter This section includes the information on record at [place] for the Encounter. Date/Time Encounter Type Encounter Description Reason Provider Source Nov 14, 2023 01:00 PM COMPRE OPH EXAM NEW PT 1/> OPTOMETRY ICD-10-CM 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, right eye, mild stage OSHINSKIE,CELENA Posey E Encounter Template Text not used by VA Assessments - Encounter Diagnoses This section includes the primary and secondary diagnoses documented for the Encounter. Date/Time Primary/Secondary Diagnosis Diagnosis Name Provider Source Nov 17, 2023 08:05 AM PRIMARY Capslr glaucoma w/pseudxf lens, right eye, mild stage OSHINSKIE,CELENA Posey [place] [facility] [place] [facility] Nov 17, 2023 08:05 AM SECONDARY Capslr glaucoma w/pseudxf lens, left eye, mild stage OSHINSKIE,CELENA Posey [facility] [place] [facility] Nov 17, 2023 08:05 AM SECONDARY Dry eye syndrome of bilateral lacrimal glands OSHINSKICELENA Farnsworth [facility] [place] [facility] Nov 17, 2023 08:05 AM SECONDARY Hypermetropia, bilateral OSHINSKIE,CELENA Posey [facility] [place] [facility] Nov 17, 2023 08:05 AM SECONDARY Macular cyst, hole, or pseudohole, left eye OSHINSKIE,CELENA Posey [facility] [place] [facility] Nov 17, 2023 08:05 AM SECONDARY Presbyopia OSHINSKICELENA Farnsworth [facility] [place] [facility] Nov 17, 2023 08:05 AM SECONDARY Regular astigmatism, bilateral OSHINSKIE,CELENA Posey [facility] [place] [facility] Plan of Treatment: Future Appointments (+ 6 months) and Future Tests (+/- 45 days) The Plan of Treatment section includes future care activities for the patient from all [place] treatmentfacilities. This section includes future appointments and future orders which are active, pending or scheduled. Future Appointments This section includes appointments that were scheduled to occur 6 months from the date of the Encounter, up to a maximum of 20 appointments. The data comes from all [place] treatment facilities. Appointment Date/Time Appointment Type Appointme nt Facility Name Dec 01, 2023 08:30 AM AMBULATORY - PS[place]IATRY [facility] [place] [facility] Dec 09, 2023 03:00 PM AMBULATORY - PS[facility]IATRY [facility] [place] [facility] Dec 25, 2023 11:00 AM AMBULATORY [facility] [place] [facility] Jan 01, 2024 01:30 PM AMBULATORY - MEDICINE [facility] [place] [facility] Jan 01, 2024 02:00 PM AMBULATORY - MEDICINE [facility] [place] [facility] Jan 02, 2024 02:00 PM AMBULATORY - REHAB MEDICIN E [facility] [place] [facility] Jan 21, 2024 02:30 PM AMBULATORY - PS[facility]IATRY [facility] [place] [facility] Jan 21, 2024 02:31 PM AMBULATORY - PS[facility]IATRY [facility] [place] [facility] Feb 05, 2024 11:00 AM AMBULATORY - REHAB MEDICIN E [facility] [place] [facility] Feb 05, 2024 01:30 PM AMBULATORY - MEDICINE [facility] [place] [facility] Feb 26, 2024 01:00 [facility] Apr 15, 2024 11:00 AM AMBULATORY - REHAB MEDICIN E [facility] [place] [facility] Apr 20, 2024 02:00 PM AMBULATORY - MEDICINE [facility] [place] [facility] Apr 22, 2024 10:00 AM AMBULATORY - MEDICINE [facility] [place] [facility] Apr 28, 2024 01:00 PM AMBULATORY - PSYCHIATRY [facility] [place] [facility] Apr 28, 2024 01:01 PM AMBULATORY - PS[facility]CHIATRY [facility] [place] [facility] May 11, 2024 01:30 PM AMBULATORY - REHAB MEDICIN E [facility] [place] [facility] Active, Pending, and Scheduled Orders This section includes a listing of several types of active, pending, and scheduled orders, including clinic medications orders, diagnostic test orders, procedure orders and consult orders; where the start date of the order is 45 days before the date of the Encounter or 45 days after the date of theEncounter. The data comes from all [place] treatment facilities. Test Date/Time Test Type Test Details Facility Name Oct 02, 2023 11:26 AM Consult Order COMMUNITY CARE-DENTAL GENERAL [employer] [facility] [place] [facility] Dec 12, 2023 11:03 AM Consult Order COMMUNITY CARE-SLEEP MEDICINE [employer] [facility] Lab Results: +/- 30 days of the encounter This section includes the Chemistry and Hematology Lab Results on record with [place] for the patient. Radiology Reports and Pathology Reports are provided separately, in subsequent sections. Lab Results This section contains the Chemistry/Hematology Results that were resulted 30 days before or 30 daysafter the date of the Encounter. Date/Time Source Result Type Result - Unit Interpretation Reference Range Comment Nov 07, 2023 01:19 PM [facility] MICROALBUMIN CREATININE RATIO PANEL Spe cimen Type: URINE No comment entered. Ordering Provider: ERNESTO ARBOLEDA Report Released Date/Time: August 17, 2023 01:25 PM Reporting Lab: [address] [address] Performing Lab: [address] [address] MICROALBUMIN/C REATININE RATIO canc mg/g 0-29.9 MICROALBUMIN,Q UANTITATIVE < 0.5 mg/dL RR UNAVAIL CREATININE URINE 128.85 mg/dL Nov 07, 2023 01:19 PM [facility] URINALYSIS Specimen Type: URINE Comment: If Glucose = >500 and Ketones are positive, please alert the Physician. Ordering Provider: ERNESTO ARBOLEDA Report Released Date/Time: August 17, 2023 01:25 PM Reporting Lab: [address] [address] Performing Lab: [address] [address] UA COLOR Yellow Yellow UA APPEARANCE Turbid Clear UA GLUCOSE NEGATIVE mg/dL Negative UA KETONES NEGATIVE mg/dL Negative UA BLOOD NEGATIVE mg/dL Negative UA PROTEIN NEGATIVE mg/dL Negative UA NITRITE NEGATIVE mg/dL Negative UA BILIRUBIN NEGATIVE mg/dL Negative UA SPECIFIC GRAVITY 1.024 H 1.016-1.022 UA pH 6.0 5.0-9.0 UA UROBILINOGEN <2.0 mg/dL <2.0 UA LEUKOCYTE NEGATIVE Negative Nov 07, 2023 01:19 PM [facility] LIVER FUNCTION Specimen Type: SERUM No comment entered. Ordering Provider: ERNESTO ARBOLEDA Report Released Date/Time: August 17, 2023 01:25 PM Reporting [facility]: [facility] [address] [facility] [address] Performing Lab: [facility] [address] [address] PROTEIN,TOTAL 6.4 g/dL 6.0-8.3 ALBUMIN 3.3 g/dL L 3.5-5.0 ALKALINE PHOSPHATASE 88 U/L 40-150 AST 16 U/L 5-34 ALT 24 U/L BILIRUBIN, TOTAL 0.4 mg/dL 0.2-1.2 Nov 07, 2023 01:19 PM [facility] CALCIUM Specimen Type: SERUM No comment entered. Ordering Provider: ERNESTO ARBOLEDA Report Released Date/Time: August 17, 2023 01:25 PM Reporting [facility]: [facility] [address] [address] Performing Lab: [facility] [address] [address] CALCIUM 8.8 mg/dL 8.5-10.2 Nov 07, 2023 01:19 PM [facility] LIPID PANEL, NON FASTING Specimen Type: SERUM No comment entered. Ordering Provider: ERNESTO ARBOLEDA Report Released Date/Time: August 17, 2023 01:25 PM Reporting Lab: [facility] [address] [address] Performing Lab: [facility] [address] [address] CHOLESTEROL 134 mg/dL TRIGLYCERIDE 235 mg/dL H 0-150 LDL calculated 41 mg/dL 0-129 CHOL/HDL 2.9 HDL CHOLESTEROL 46 mg/dL 40-60 Nov 07, 2023 01:19 PM [facility] TSH Specimen Type: SERUM No comment entered. Ordering Provider: ERNESTO ARBOLEDA Report Released Date/Time: August 17, 2023 01:25 PM Reporting [facility]: [facility] [address] [address] Performing Lab: [facility] [address] [address] TSH 1.16 u[IU]/mL 0.35-5.00 Nov 07, 2023 01:19 PM [facility] HEMOGLOBIN A1C PANEL Specimen Type: BLOOD Comment: [...] August 17, 2023 01:25 PM Reporting [facility] [address] Performing Lab: [address] [address] HEMOGLOBIN A1C 5.9 H 4.0-5.6 Nov 07, 2023 01:19 PM [facility] MAGNESIUM Specimen Type: SERUM No comment entered. Ordering Provider: ERNESTO ARBOLEDA Report Released Date/Time: August 17, 2023 01:25 PM Reporting Lab: [facility] [address] [address] Performing [facility] [address] MAGNESIUM 1.9 mg/dL 1.6-2.6 Nov 07, 2023 01:19 PM [facility] VITAMIN D (25-OH) Specimen Type: SERUM No comment entered. Ordering Provider: ERNESTO ARBOLEDA Report Released Date/Time: August 17, 2023 01:25 PM Reporting [facility] [address] Performing [facility]: [facility] [address] VITAMIN D (25-OH) 28 ng/mL 20-50 Nov 07, 2023 01:19 PM [facility] VITAMIN B12 Specimen Type: SERUM No comment entered. Ordering Provider: ERNESTO ARBOLEDA Report Released Date/Time: August 17, 2023 01:25 PM Reporting [facility]: [facility] [address] [address] Performing Lab: [address] [address] VITAMIN B12 424 pg/mL 200-900 Nov 07, 2023 01:19 PM [facility] PT & INR (PROTIME) Specimen Type: PLASMA No comment entered. Ordering Provider: ERNESTO ARBOLEDA Report Released Date/Time: August 17, 2023 01:25 PM Reporting Lab: [address] [address] Performing Lab: [address] [address] INR 1.1 PROTIME 11.9 s 10.0-13.1 Nov 07, 2023 01:19 PM [facility] BASIC METABOLIC PANEL (non-fasting) Spe cimen Type: SERUM No comment entered. Ordering Provider: ERNESTO ARBOLEDA Report Released Date/Time: August 17, 2023 01:25 PM Reporting Lab: [address] [address] Performing Lab: [address] [address] UREA NITROGEN 19 mg/dL 7-25 GLUCOSE 99 mg/dL 65-100 SODIUM 139 mmol/L 135-145 POTASSIUM 4.3 mmol/L 3.5-5.0 CHLORIDE 105 mmol/L 100-110 CO2 29 meq/L 20-30 CREATININE, Serum 1.05 mg/dL 0.50-1.40 eGFR(CKD-EPI 2020) 72 mL/min >60 Nov 07, 2023 01:19 PM [facility] CBC AND DIFF (AUTO) Specimen Type: BLOOD No comment entered. Ordering Provider: ERNESTO ARBOLEDA Report Released Date/Time: August 17, 2023 01:25 PM Reporting Lab: [address] [address] Performing Lab: [address] [address] WBC 6.90 10*3/uL 4.50-11.00 RBC 4.40 10*6/uL [...] 10*3/uL 0.00-0.00 Nov 07, 2023 01:19 PM [facility] MICROSCOPIC AUTOMATED, URINE Specimen Type: URINE Comment: If Glucose = >500 and Ketones are positive, please alert the Physician. Ordering Provider: ERNESTO ARBOLEDA Report Released Date/Time: August 17, 2023 01:25 PM Reporting Lab: [address] [address] Performing Lab: [address] [address] UA WBC 0-5 /[HPF] 0-5 UA RBC 0-2 /[HPF] 0-3 UA AMORPHOUS CRYSTALS FEW /[HPF] Not Established Social History: Smoking Status (Most current) and Tobacco Use (All prior to encounter date) This section includes the most current, and the historical, smoking and tobacco- related health factors from the [place] facility where the Encounter took place. Current Smoking Status This section includes the most current smoking, or tobacco-related health factor, from the [place] facility where the Encounter took place. Date/Time Current Smoking Status Comment [facility]il [facility] Aug 06, 2023 01:17 PM VA-TOBACCO NEVER USED [place] [facility] [place] [facility] Advance Directives: All historical and current Section Date Range: From patient's date of to the date document was created. This section includes ALL of a patient's completed or amended [place] Advance and Rescinded Directives. The entries below indicate that a directive exists for the patient, but an actual copy is not included with this document. The data comes from all [place] facilities. Date Advance Directives Provider Source August 25, 2023 [facility] Encounter Notes: All associated encounter notes This section contains the clinical notes associated to the Encounter. Date/Time Encounter Note(s) Provider Source Nov 14, 2023 01:00 PM OPTOMETRY NOTE: LOCAL TITLE: OPTOMETRY NOTE STANDARD TITLE: OPTOMETRY NOTE DATE OF NOTE: NOV 14, 2023@13:00 ENTRY DATE: NOV 14, 2023@13:00:19 AUTHOR: REUBEN ANTUNEZ JR EXP COSIGNER: JOSE FISHER URGENCY: STATUS: COMPLETED OPTOMETRY NOTE Has ADDENDA Active problems - Computerized Problem List is [...] 10. CAD - Coronary Artery Disease ([facility] [id number]) 11. Exposure to potentially hazardous substance 12. Glaucoma 13. Insomnia 14. Bilateral hearing loss 15. GERD - Gastro-Esophageal Reflux Disease ([facility] [id number]) Active Outpatient Medications (including Supplies): Active Outpatient [...] BEDTIME NEEDED FOR INSOMNIA ASSOCIATED WITH DEPRESSION Allergies: LISINOPRIL All medications including those prescribed by outside VA's, community providers, and all OTC meds were reviewed and reconciled with patient to the best of their abilities. This 78 year old MALE is seen today for TAYLOR AGUSTÍN: Pt. states 1+ years ago in [facility]. Wasn't sure where he was being seen or by who. Last V note was Dr. Ryder 02/2023 Chief Complaint: Pt. having care transferred here after moving from [place]. Feels that reading may be slightly hazy through current Rx, this has been ongoing for maybe 1-2 years. Vision improves with blink. Eyes often water and he feels that rubbing away the tears also helps to clear the blurry vision. Uses a CPAP every night. Has never tried any treatment for dry eye. Happy with distance vision through glasses. Current pair of glasses are 1-2 years old Not sure what his glaucoma drops are called. He thinks one has a purple cap No other changes to vision or complaints today Glaucoma X ~5 years Glaucoma medication: - Brimonidine QAM OD; Last taken yesterday - Latanoprost QHS OU; Last taken last night Pt states he only misses drops once in a while but very rarely Glaucoma surgery: none FHx of glaucoma: None OHx: - Pseudophakia OU s/p YAG OU - Primary open angle glaucoma OU; previously noted as POAG suspect high risk but has been receiving drop therapy. OS noted to be pseudoexfoliative - RE and presbyopia OU (-) Pain: (-) NULL: (-) Diplopia: (-) Flashes: (-) Floaters: (-) Amaurosis Fugax/Tia's: (-) Eye Injury: (+) Eye Surgery: CE w/ PCIOL and YAG OU (-) TBI FOHx: (-) Glaucoma/ARMD/Blindness VITALS (most recent, as listed in the electronic record): B/P: 159/63 (09/10/2023 11:32) Pulse: 54 (09/10/2023 11:32) Temperature: 98.3 F [36.8 C] (08/07/2023 15:14) Weight: 193 lb [87.54 kg] (08/07/2023 15:14) Height: 70 in [177.8 cm] (08/07/2023 15:14) BMI: BMI: 27.8 PERTINENT LABS: HEMOGLOBIN A1C TREND Collection DT Spec HGBA1c 11/07/2023 13:19 BLOOD 5.9 H (-) Smoker/Length of Time/PPD: Current Rx with last BCVA: Lensometry of current pair of bifocals OD:+0.25-0.60h143 OS:+0.50-1.88t401 Add:+2.50 DVA ( )sc ( x )cc - phoropter OD: 20/20-1 OS: 20/20-2 Pupils: PERRL (-)APD EOMs: SAFE OU, (-)Pain/Diplopia CVF (facial, peripheral): FTFC OU Subjective Refraction: OD: +0.25-0.78h118 20/20-1 OS: +0.25-1.09i556 20/20 Add: +2.50 Pt. near working distance ~13 inches. Trial framed +2.25, +2.50, +2.75 and pt. still prefers +2.50 Pt. declines new glasses at this time. 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 Ryder's 02/2023 J[facility] note OD: 07 mmHg OS: 07 mmHg Tmax going off of Dr. Ryder's chart OD: 19 mmHg OS: 17 mmHg Looks like drops were started ~04/2022 - 06/2022 Previous pachymetry: OD: 571 microns OS: 597 microns Fundus exam: Dilated: XX 1:31pm Dilating Drops: 1GTT 1 % Tropicamide OU & 1GTT 2.5% Phenylephrine OU (Pt. ed. on side effects, dilation warning given and verbal consent obtained) Patient advised not to drive if they feel they have any symptoms which could affect their ability to drive safely. Patient advised not to engage in any activities which could put themselves or others at risk if they feel they have any symptoms which could affect their ability to perform those activities safely. Performed by student, repeated by attending Vit: syneresis OU (+)PVD OU C/D: 0.80 OD, 0.70 OS pink & healthy rim tissue, (-)Drance heme OU Macula: flat with mild pigmentary mottling OU (OD>OS) OS: small well circumscribed red spot centrally, potential partial thickness macular hole PPole: OD: clear OS: ~1/2DD small patch of choroidal pigmentary change superior nasally A/V: 1/2 Vessels: normal caliber OU Periph: flat and intact (-)holes, tears, detachments 360 OU Assessment/Plan: 1. Pseudoexfoliative glaucoma OU. Moderate cupping with thicker than average CCT. No evidence of pigment dispersion OU. Noted in previous chart from Dr. Ryder to have pseudoexfoliation OS. No known family history of glaucoma. - IOP today: 17/14 mmHg OD/OS - Pachymetry: 571 OD, 597 OS - Medication: Latanoprost QHS OU, Brimonidine QAM OD - RNFL OCT obtained today for baseline in our office. - Pt ed re today's findings - Pt ed re glaucoma as well as the natural history of this diagnosis including prognosis. - Stress importance of continued follow-up appointments - Reordering Latanoprost and Brimonidine. Ed. pt to continue taking drops as he has been - RTC 1 month with 24-2 HVF 2. Partial thickness macular hole OS and trace early dry AMD OD - BCVA 20/20 OS, pt. has no symptoms of flashes, decreased vision, blind spots - Pt. given HAG. Ed. on proper use and to use at least 3x per week - Told to call stat if experiencing any changes in vision - Monitor 3. Dry eyes OU - Pt. uses CPAP. Symptomatic to vision fluctuations and watering - Ordering refresh. Ed. pt. to use QID OU - Ed. not to use within 10 minutes of glaucoma medication to prevent wash-out - Monitor 4. 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 ed. on today's findings - Is going to defer glasses at this time. Would like to continue using current pair - Monitor Return to Clinic 1 month with 24-2 HVF or earlier PRN Patient Education: Glaucoma: Patient was educated regarding glaucoma/glaucoma suspect [...] the patient's ability to participate in testing. Macular Degeneration: Patient was educated regarding macular degeneration including both wet and dry varieties as well as the natural history and prognosis of this condition. Education included the role of amsler grid testing , ocular nutraceutical therapy as well as diet and healthy lifestyle choices when applicable. Exclusion criteria includes extremely reduced acuity or cognitive decline for amsler grid testing and other coexisting systemic contraindication for supplements, diet and exercise. EYE: Visual Function Reminder: Normal Vision: 20/25 or better: Unspecified disorder of refraction or accommodation (367.9). Medication Reconciliation: Outpatient: Has the patient been taking medications as documented in the EMLR? No: Discrepencies were identified. See below. Essential Medication List for Review used to complete this medication reconciliation. INCLUDED IN THIS LIST: Alphabetical list of active outpatient prescriptions dispensed from this VA (local) and dispensed from another [place] or [facility] facility (remote) as well as inpatient orders (local, pending and active), local clinic medications, locally documented non-VA medications, and local prescriptions that have or been discontinued in the past 90 days. - Discrepancies were identified, addressed, and discussed with the patient/caregiver at this encounter. Discrepancies: added eye meds - All changes in medications, including all non-VA/Herbal/OTC medications were entered into CPRS. - If there were any medications the patient should no longer take, they were discontinued. - The patient/caregiver was instructed to update this list, discard old lists, and take this list to the next appointment, whether with a VA or non-VA provider. Medication List: [facility] Link Data on this list may not be complete. Please check JLV. Allergies/ADRs (Tool #5) FACILITY ALLERGY/ADR -------- [facility] LISINOPRIL [facility] LISINOPRIL Med. Reconciliation (Tool #1) INCLUDED IN THIS LIST: Alphabetical list of active outpatient prescriptions dispensed from this [place] (local) and dispensed from another [place] or [facility] facility (remote) as well as inpatient orders (local pending and active), local clinic medications, locally documented non-VA medications, and local prescriptions that have or been discontinued in the past 90 days. Non-VA Meds Last Documented On: Data not found NOTE The display of VA prescriptions dispensed from another [place] or [facility] facility (remote) is limited to active outpatient prescription entries matched to National Drug File at the originating site and may not include some items such as investigational drugs, compounds, etc. NOT INCLUDED IN THIS LIST: Medications self-entered by the patient into personal health records (i.e. [facility]) are NOT included in this list. Non-VA medications documented outside this [place], remote inpatient orders (regardless of status) and remote clinic medications are NOT included in this list. The patient and provider must always discuss medications the patient is taking, regardless of where the medication was dispensed or obtained. OUTPT ALBUTEROL 90MCG (CFC-F) 200D ORAL INHL (Status = Active) INHALE 2 PUFFS BY MOUTH FOUR TIMES DAILY NEEDED FOR BRONCHOSPASM Rx# [id number] Last Released: 11/12/23 Qty/Days Supply: Rx Expiration Date: 08/07/24 Refills Remainin Indication: FOR BRONCHOSPASM Remote ATORVASTATIN CA 80MG TAB TAKE ONE-HALF TABLET BY MOUTH EVERY DAY FOR CHOLESTEROL Last Filled: 11/10/23 (Active at [facility]) Rx Expiration Date: 06/30/24 Days Supply: 90 OUTPT ATORVASTATIN CALCIUM 80MG TAB (Status = Active) TAKE ONE TABLET BY MOUTH ONCE DAILY FOR HIGH CHOLESTEROL Rx# [id number] Last Released: 08/13/23 Qty/Days Supply: Rx Expiration Date: 08/08/24 Refills Remainin Indication: FOR HIGH CHOLESTEROL OUTPT BRIMONIDINE TARTRATE 0.2% OPH SOLN (Status = Pending) INSTILL ONE DROP INTO THE RIGHT EYE EVERY MORNING FOR GLAUCOMA Login Date: 11/14/23 Qty/Days Supply: Refills Ordered: 5 Remote BRIMONIDINE TARTRATE 0.2% SOLN,OPH INSTILL 1 DROP INTO RIGHT EYE EVERY MORNING FOR GLAUCOMA Last Filled: 06/16/23 (Active at [facility]) Rx Expiration Date: 03/28/24 Days Supply: 90 OUTPT CARBOXYMETHYLCELLULOSE NA 0.5% OPH SOLN (Status = Pending) INSTILL ONE DROP INTO EACH EYE FOUR TIMES A DAY Login Date: 11/14/23 Qty/Days Supply: Refills Ordered: 11 OUTPT DABIGATRAN ETEXILATE 150MG ORAL CAP (Status = Active) TAKE ONE CAPSULE BY MOUTH TWICE DAILY TO PREVENT BLOOD CLOTS (ONCE OPENED, THE MEDICATION MUST BE USED WITHIN 4 MONTHS) Rx# [id number] Last Released: 11/12/23 Qty/Days Supply: Rx Expiration Date: 08/13/24 Refills Remainin Indication: TO PREVENT BLOOD CLOTS OUTPT DILTIAZEM (EQV-CARDIZEM) 240MG 24HR CAP (Status = Active) TAKE ONE CAPSULE BY MOUTH ONCE DAILY FOR ATRIAL FIBRILLATION Rx# [id number] Last Released: 11/05/23 Qty/Days Supply: Rx Expiration Date: 08/07/24 Refills Remainin Indication: FOR ATRIAL FIBRILLATION OUTPT DOXYCYCLINE HYCLATE 100MG TAB (Status = Active) TAKE ONE TABLET BY MOUTH TWICE DAILY UPPER RESPIRATORY INFECTION Rx# [id number] Last Released: 10/30/23 Qty/Days Supply: 25/10 Rx Expiration Date: 11/29/23 Refills Remainin Indication: UPPER RESPIRATORY INFECTION OUTPT EZETIMIBE 10MG TAB (Status = Active) TAKE ONE TABLET BY MOUTH ONCE DAILY TO LOWER CHOLESTEROL Rx# [id number] Last Released: 11/12/23 Qty/Days Supply: Rx Expiration Date: 08/07/24 Refills Remainin Indication: FOR HIGH CHOLESTEROL OUTPT FUROSEMIDE 20MG TAB (Status = Active) TAKE ONE TABLET BY MOUTH ONCE DAILY NEEDED FOR VISIBLE WATER RETENTION TO REMOVE FLUID/CONTROL BLOOD PRESSURE Rx# [id number] Last Released: 11/12/23 Qty/Days Supply: Rx Expiration Date: 08/08/24 Refills Remainin Indication: FOR VISIBLE WATER RETENTION Remote KETOCONAZOLE 2% SHAMPOO USE SMALL AMOUNT ON SCALP FRI,FRI AND FRIDAY SEBORRHEIC DERMATITIS LATHER, APPLY TO SCALP, LEAVE ON FOR 5 MINUTES, THEN WASH OFF. DO THIS THREE TIMES PER WEEK. Last Filled: 05/25/23 (Active at [facility]) Rx Expiration Date: 03/31/24 Days Supply: 30 OUTPT LATANOPROST 0.005% OPH SOLN (Status = Pending) INSTILL ONE DROP INTO EACH EYE AT BEDTIME Login Date: 11/14/23 Qty/Days Supply: 2.09/10 Refills Ordered: 11 OUTPT METOPROLOL SUCCINATE 50MG SA TAB (Status = Active) TAKE ONE TABLET BY MOUTH ONCE DAILY FOR BLOOD PRESSURE/HEART Rx# [id number] Last Released: 11/12/23 Qty/Days Supply: Rx Expiration Date: 08/08/24 Refills Remainin Indication: FOR HIGH BLOOD PRESSURE Remote METOPROLOL TARTRATE 50MG TAB TAKE ONE-HALF TABLET BY MOUTH TWICE A DAY FOR HEART AND BLOOD PRESSURE Last Filled: 11/10/23 (Active at [facility]) Rx Expiration Date: 06/30/24 Days Supply: 90 Remote OMEPRAZOLE 20MG CAP,EC TAKE ONE CAPSULE BY MOUTH EVERY DAY FOR STOMACH Last Filled: 07/30/23 (Active at [facility]) Rx Expiration Date: 06/30/24 Days Supply: 90 OUTPT OMEPRAZOLE 20MG EC CAP (Status = Active) TAKE ONE CAPSULE BY MOUTH EVERY MORNING 30 MINUTES BEFORE BREAKFAST FOR GASTROESOPHAGEAL REFLUX DISEASE Rx# [id number] Last Released: 11/12/23 Qty/Days Supply: Rx Expiration Date: 08/08/24 Refills Remainin Indication: FOR GASTROESOPHAGEAL REFLUX DISEASE OUTPT PRIMIDONE 50MG TAB (Status = Active) TAKE ONE TABLET BY MOUTH ONCE DAILY FOR SIMPLE SEIZURE Rx# [id number] Last Released: 11/12/23 Qty/Days Supply: Rx Expiration Date: 08/08/24 Refills Remainin Indication: FOR SIMPLE SEIZURE Remote PRIMIDONE 50MG TAB TAKE ONE TABLET BY MOUTH THREE TIMES A DAY FOR TREMORS Last Filled: 07/30/23 (Active at [facility]) Rx Expiration Date: 06/30/24 Days Supply: 90 OUTPT QUETIAPINE FUMARATE 100MG TAB (Status = Active) TAKE ONE TABLET BY MOUTH AT BEDTIME FOR ANXIETY Rx# [id number] Last Released: 10/30/23 Qty/Days Supply: Rx Expiration Date: 11/29/23 Refills Remainin Indication: FOR ANXIETY Remote QUETIAPINE FUMARATE 200MG TAB TAKE ONE-HALF TABLET BY MOUTH AT BEDTIME FOR ANXIETY Last Filled: 07/01/23 (Active at [facility]) Rx Expiration Date: 04/23/24 Days Supply: 30 OUTPT SERTRALINE HCL 100MG TAB (Status = Active) TAKE ONE TABLET BY MOUTH ONCE DAILY FOR POSTTRAUMATIC STRESS SYNDROME Rx# [id number] Last Released: 11/12/23 Qty/Days Supply: Rx Expiration Date: 08/08/24 Refills Remainin Indication: FOR POSTTRAUMATIC STRESS SYNDROME OUTPT TRAZODONE HCL 100MG TAB (Status = Active) TAKE 1/2 - 1 TABLET BY MOUTH AT BEDTIME NEEDED FOR INSOMNIA ASSOCIATED WITH DEPRESSION Rx# [id number] Last Released: 11/14/23 Qty/Days Supply: Rx Expiration Date: 11/13/24 Refills Remainin Indication: FOR INSOMNIA ASSOCIATED WITH DEPRESSION SUPPLIES PHARMACY TERMS AND POSSIBLE PATIENT ACTIONS INPT = [place] inpatient order IV = [place] intravenous medication OUTPT = [place] outpatient prescription PHARMACY POSSIBLE PATIENT TERMS EXPLANATION ACTIONS -------- - ACTIVE A prescription that can be If you have refills, filled at the local [place] pharmacy. you may request a refill of this prescription from your [place] pharmacy. CLINIC A medication you received during If you have questions a visit to a [place] clinic or about this medication emergency department. contact your [place] healthcare team. DISCONTINUED A prescription your provider has Contact your [place] stopped. It is no longer healthcare team if you available to be sent to you or need more of this picked up at the [place] pharmacy medication. window. A prescription which is [...] the [facility]. Or, it may be an mhfm-afy-lakuycv (OTC), herbal, dietary supplements or sample medication. [...] ==== /gurwinder/ Jose Fisher OD Fee Basis Endless Steamer Tender Signed: 11/14/2023 15:40 for REUBEN ANTUNEZ JR OPTOMETRY STUDENT /gurwinder/ Jose Fisher OD Fee Basis Endless Steamer Tender Cosigned: 11/14/2023 15:40 11/14/2023 ADDENDUM STATUS: COMPLETED I reviewed all findings with the king maker. I performed the slit lamp exam and dilated fundus exam. New pt to us so will have him rtc for VF in Dec. Progress note reviewed and edited as needed. I established the plan of care and educated the patient about his conditions. Pt deferred receiving a list of current medications /gurwinder/ Jose Fisher OD Fee Basis Endless Steamer Tender Signed: 11/14/2023 15:40 JOSE FISHER [place] [facility]
--- OUTSIDE RECORDS SUMMARY | 2024-05-13 13:38 | XMS_ITS | Encounter Summary ---
Author Name [place] Organization [place] Address [address] [place] [address] Care Team Providers Care Commercial Sales Consultant Name Role Phone ERNESTO ARBOLEDA Primary Care [...] PART A August 12, 2008 PART A [id number] [phone] Dawson YOUNGER PATIENT MEDICARE (WNR) MEDICARE (M) PART B August 12, 2008 PART B [id number] [phone] Dawson YOUNGER PATIENT MEDICARE (WNR) MEDICARE (M) PART A August 12, 2008 PART A [id number] [facility] Dawson YOUNGER PATIENT MEDICARE (WNR) MEDICARE (M) PART B August 12, 2008 PART B [id number] [facility] Dawson YOUNGER PATIENT MEDICARE (WNR) MEDICARE (M) PART A August 12, 2008 PART A [id number] Dawson YOUNGER PATIENT MEDICARE (WNR) MEDICARE (M) PART B August 12, 2008 PART B [id number] [phone] Dawson YOUNGER PATIENT MEDICARE (WNR) MEDICARE (M) PART B August 12, 2008 PART B [id number] [facility] [phone] Dawson YOUNGER PATIENT MEDICARE (WNR) MEDICARE (M) PART A August 12, 2008 PART A [id number] [facility] [phone] Dawson YOUNGER PATIENT MEDICARE (WNR) MEDICARE (M) PART B August 12, 2008 PART B [id number] Dawson YOUNGER PATIENT MEDICARE (WNR) MEDICARE (M) PART A August 12, 2008 PART A [id number] [facility] Dawson YOUNGER PATIENT MEDICARE PART D (WNR) PRESCRIPT ION PART D Apr 14, 2015 PART D [id number] [phone] Dawson YOUNGER PATIENT UN[employer]ARE PREFERRED PROVIDER ORGANIZAT ION (PPO) [facility] August 12, 2008 [id number] [phone] Dawson YOUNGER PATIENT [employer]ARE MEDICARE SUPPLEMEN [facility] N August 12, 2008 [id number] Dawson YOUNGER PATIENT [employer]ARE-G. I.C. MEDICAL EXPENSE (OPT/PROF ) HOANG [facility] IN[facility] N August 12, 2008 [id number] [phone] Dawson YOUNGER PATIENT Selected Encounter This section includes the information on record at [place] for the Encounter. Date/Time Encounter Type Encounter Description Reason Provider Source Apr 28, 2024 01:00 PM TELEHEALTH FACILITY [facility] - IND ICD-10-CM F43.10 Post-traumatic stress disorder, unspecified LILIANE IYER IHE Encounter Template Text not used by [place] Assessments - Encounter Diagnoses This section includes the primary and secondary diagnoses documented for the Encounter. Date/Time Primary/Secondary Diagnosis Diagnosis Name Provider Source May 02, 2024 07:15 AM PRIMARY Post-traumatic stress disorder, unspecified JOSE F IYER May 02, 2024 07:15 AM SECONDARY Insomnia, unspecified JOSE F IYER SONYA May 02, 2024 07:15 AM SECONDARY Unspecified dementia, moderate, with anxiety [facility] Plan of Treatment: Future Appointments (+ 6 months) and Future Tests (+/- 45 days) The Plan of Treatment section includes future care activities for the patient from all [place]. This section includes future appointments and future orders which are active, pending or scheduled. Future Appointments This section includes appointments that were scheduled to occur 6 months from the date of the Encounter, up to a maximum of 20 appointments. The data comes from all [place] treatment facilities. Appointment Date/Time Appointment Type Appointme nt Facility Name May 11, 2024 01:30 PM [facility] May 26, 2024 01:30 PM AMBULATORY - MEDICINE [facility] May 26, 2024 03:00 PM [facility] May 26, 2024 03:01 PM [facility] [place] [facility] Jun 22, 2024 01:00 PM AMBULATORY - MEDICINE [facility] Jun 22, 2024 03:00 PM AMBULATORY - NONE [place] [facility] Sep 14, 2024 02:30 PM [facility] Advance Directives: All historical and current Section Date Range: From patient's date of to the date document was created. This section includes ALL of a patient's completed or amended [place] Advance and Rescinded Directives. The entries below indicate that a directive exists for the patient, but an actual copy is not included with this document. The data comes from all [place] facilities. Date Advance Directives Provider Source August 25, 2023 ADVANCE DIRECTIVE MICHELLE LEVINE [facility] Encounter Notes: All associated encounter notes This section contains the clinical notes associated to the Encounter. Date/Time Encounter Note(s) Provider Source Apr 28, 2024 02:00 PM TELEHEALTH NOTE: LOCAL TITLE: TELEHEALTH NOTE STANDARD TITLE: TELEHEALTH NOTE DATE OF NOTE: APR 28, 2024@14:00 ENTRY DATE: MAY 02, 2024@06:52:26 AUTHOR: MITCHEL IYER EXP COSIGNER: URGENCY: STATUS: COMPLETED SHANICE YOUNGER checked-in with this groundwater monitoring technician at: CW/SO/CVT/RAFAELA CUELLO . [place] identified with 2 identifiers: [X] Full Name [ ] Date of [X] Full SSN [ ] VA ID Card Patient consented to participate in the scheduled Clinical Video Telehealth (CVT) appointment: YES. Appointment Date/Time: Apr@13:00 DR. LIU HERNANDEZ MD. PSYCHIATRIST Conducted this appointment session from [facility] via Clinical Video Telehealth. DX per Telehealth Provider: F43.10 Post-traumatic stress disorder, unspecified(P). G47.00 Insomnia, unspecified(S). F03.B4 Unspecified dementia, moderate, with anxiety(S). Additional Information: 4 Weeks Follow Up Per Provider. /gurwinder/ MITCHEL IYER TELEHEALTH CLINICAL TECHNIAN (TCT) Signed: 05/02/2024 07:23 MITCHEL IYER [place]
--- OUTSIDE RECORDS SUMMARY | 2024-05-13 13:38 | XMS_ITS ---
Author Name [place] Address [address] [place] [address] Care Team Providers Care Business Services Tech Name Role Phone ERNESTO ARBOLEDA Primary Care [...] PART B August 12, 2008 PART B [id number] [phone] Dawson YOUNGER PATIENT MEDICARE (WNR) MEDICARE (M) PART A August 12, 2008 PART A [id number] Dawson YOUNGER PATIENT MEDICARE (WNR) MEDICARE (M) PART B August 12, 2008 PART B [id number] Dawson YOUNGER PATIENT MEDICARE (WNR) MEDICARE (M) PART B August 12, 2008 PART B [id number] Dawson YOUNGER PATIENT MEDICARE (WNR) MEDICARE (M) PART A August 12, 2008 PART A [id number] Dawson YOUNGER PATIENT MEDICARE (WNR) MEDICARE (M) PART B August 12, 2008 PART B [id number] Dawson YOUNGER PATIENT MEDICARE (WNR) MEDICARE (M) PART A August 12, 2008 PART A [id number] Dawson YOUNGER PATIENT MEDICARE (WNR) MEDICARE (M) PART B August 12, 2008 PART B [id number] [facility] [phone] Dawson YOUNGER PATIENT MEDICARE (WNR) MEDICARE (M) PART A August 12, 2008 PART A [id number] Dawson YOUNGER PATIENT MEDICARE (WNR) MEDICARE (M) PART A August 12, 2008 PART A [id number] Daws[place] YOUNGER PATIENT MEDICARE PART D (WNR) PRESCRIPT ION PART D Apr 14, 2015 PART D [id number] [phone] Dawson YOUNGER PATIENT UNICARE PREFERRED PROVIDER ORGANIZAT ION (PPO) [facility] IN[facility] N August 12, 2008 [id number] Dawson YOUNGER PATIENT UNICARE MEDICARE SUPPLEMEN [facility] IN[facility] N August 12, 2008 [id number] Dawson YOUNGER PATIENT UNICARE-G. I.C. MEDICAL EXPENSE (OPT/PROF ) [facility] N August 12, 2008 [id number] Dawson YOUNGER PATIENT Selected Encounter This section includes the information on record at [place] for the Encounter. Date/Time Encounter Type Encounter Description Reason Provider Source Aug 11, 2023 09:55 AM Outpatient Encounter CARDIOLOGY ICD-10-CM I48.0 Paroxysmal atrial fibrillation LIU GEE Encounter Template Text not used by [facility] Assessments - Encounter Diagnoses This section includes the primary and secondary diagnoses documented for the Encounter. Date/Time Primary/Secondary Diagnosis Diagnosis Name Provider Source Aug 11, 2023 10:04 AM PRIMARY Paroxysmal atrial fibrillation LIU GEE [place] [facility] [facility] Plan of Treatment: Future Appointments [...] treatment facilities. Appointment Date/Time Appointment Type Appointme Facility Name August 14, 2023 08:00 AM AMBULATORY - PSYCHIATRY [facility] August 18, 2023 01:00 PM AMBULATORY [...] 30, 2023 02:30 PM AMBULATORY - MEDICINE [facility] Nov 07, 2023 01:00 PM AMBULATORY - [place]IN [place] Nov 13, 2023 10:00 AM AMBULATORY - [...] 09, 2023 03:00 PM AMBULATORY - PSYCHIATRY [place] [facility] [place] [facility] Dec 25, 2023 11:00 AM AMBULATORY - PSYCHIATRY [place] [facility] [place] [facility] Jan 01, 2024 01:30 PM AMBULATORY - MEDICINE [facility] [place] [facility] Jan 01, 2024 02:00 PM AMBULATORY - MEDICINE [facility] [place] [facility] Jan 02, 2024 02:00 PM AMBULATORY - REHAB MEDICIN E [facility] [place] [facility] Jan 21, 2024 02:30 PM AMBULATORY [facility]IATRY [facility] Social History: Smoking Status (Most current) [...] 06, 2023 01:17 PM VA-TOBACCO [facility]ED [facility] Advance Directives: All historical and [...] August 25, 2023 ADVANCE DIRECTIVE MICHELLE LEVINE [facility] Encounter Notes: All associated encounter notes This section contains the clinical notes associated to the Encounter. Date/Time Encounter Note(s) Provider Source Aug 11, 2023 09:56 AM CARDIOLOGY CONSULT : LOCAL TITLE: CONSULT REPORT/CARDIOLOGY E CONSULT STANDARD TITLE: CARDIOLOGY CONSULT DATE OF NOTE: AUG 11, 2023@09:56 ENTRY DATE: AUG 11, 2023@09:59:22 AUTHOR: LIU GEE COSIGNER: ERNESTO ARBOLEDA URGENCY: STATUS: COMPLETED CPRS chart review, please note this is not a face to face consultation. Asked to comment on this 77 y/o male recently transferred from [place] - history includes atrial fibrillation. Review of [facility] and [place] [facility] indicates prior afib ablation, but no documentation of clinic afib since that procedure. The patient previously received cardiology care from a private grain elevator superintendent in [place], and these records are not available for review. Review of [place] records indicates the patient currently has no symptoms from atrial fibrillation and is on all appropriate medications, including oral anticoagulation with dabigatran. His current electrocardiogram shows sinus rhythm with occasional premature atrial contractions and an incomplete right bundle branch block. No other therapy is indicated at this time. It would be reasonable to obtain an echocardiogram if he will continue to receive care within the [facility]. I will place an order for an echocardiogram and we will follow-up with those results. /gurwinder/ Liu Gee MD Attending Physician, Cardiovascular Medicine Signed: 08/11/2023 10:04 /gurwinder/ ERNESTO ARBOLEDA NP NURSE PRACTITIONER Cosigned: 08/17/2023 13:15 LIU GEE [place] [facility]
--- OUTSIDE RECORDS SUMMARY | 2024-05-13 13:39 | XMS_ITS | Encounter Summary ---
Author Name [facility] [facility] [place] [facility] [place] [facility] [place] Address [address] [place] [address] Care Team Providers Care Professor Of Sport Management Name Role Phone ERNESTO ARBOLEDA Primary Care [...] PART A August 12, 2008 PART A [id number] Dawson YOUNGER PATIENT MEDICARE (WNR) MEDICARE (M) PART B August 12, 2008 PART B [id number] Dawson YOUNGER PATIENT MEDICARE (WNR) MEDICARE (M) PART A August 12, 2008 PART A [id number] [id number] Dawson YOUNGER PATIENT MEDICARE (WNR) MEDICARE (M) PART B August 12, 2008 PART B [id number] Dawson YOUNGER PATIENT MEDICARE (WNR) MEDICARE (M) PART A August 12, 2008 PART A [id number] Dawson YOUNGER PATIENT MEDICARE (WNR) MEDICARE (M) PART B August 12, 2008 PART B [id number] [phone] [id number] Dawson YOUNGER PATIENT MEDICARE (WNR) MEDICARE (M) PART B August 12, 2008 PART B [id number] Dawson YOUNGER PATIENT MEDICARE (WNR) MEDICARE (M) PART A August 12, 2008 PART A [id number] [phone] Dawson YOUNGER PATIENT MEDICARE (WNR) MEDICARE (M) PART B August 12, 2008 PART B [id number] Dawson YOUNGER PATIENT MEDICARE (WNR) MEDICARE (M) PART A August 12, 2008 PART A [id number] Dawson YOUNGER PATIENT MEDICARE PART D (WNR) PRESCRIPT ION PART D Apr 14, 2015 PART D [id number] Dawson YOUNGER PATIENT UNICARE PREFERRED PROVIDER ORGANIZAT ION (PPO) [facility] INDEM N August 12, 2008 [id number] [phone] Dawson YOUNGER PATIENT UNICARE MEDICARE [facility] IN[facility] N August 12, 2008 [id number] Dawson YOUNGER PATIENT UNICARE-G. [employer]. MEDICAL EXPENSE (OPT/PROF ) [facility] N August 12, 2008 [id number] Dawson YOUNGER PATIENT Selected Encounter This section includes the information on record at NH for the Encounter. Date/Time Encounter Type Encounter Description Reason Pro vider Source August 15, 2023 12:00 PM Outpatient Encounter ADMIN PAT ACTIVTIES (MASNONCT) IHE Encounter Template Text not used by NH Plan of Treatment: Future Appointments (+ 6 months) and Future Tests (+/- 45 days) The Plan of Treatment section includes future care activities for the [facility] This section includes future appointments and future orders which are active, pending or scheduled. Future Appointments This section includes appointments that were scheduled to occur 6 months from the date of the Encounter, up to a maximum of 20 appointments. The data comes from all [place] treatment facilities. Appointment Date/Time Appointment Type Appointme nt Facility Name August 18, 2023 01:00 PM [facility] August 25, 2023 01:00 PM AM[facility]ULATORY [facility] NONE [facility] August 26, 2023 01:45 PM [facility]ULAT[facility] September 10, 2023 11:00 AM AMBULATORY - NONE [facility] Sep 23, 2023 09:00 AM AMBULATORY - PS[facility]IATRY [facility] Oct 02, 2023 11:00 AM AMBULATORY [facility] NONE [facility] Oct 30, 2023 02:30 PM AM[facility]ULATORY - MEDICINE [facility] Nov 07, 2023 01:00 PM [facility] Nov 13, 2023 10:00 AM AMBULATORY - [facility]AT[facility] Nov 13, 2023 02:00 PM AM[facility]ULATORY [facility] Nov 14, 2023 01:00 PM [facility] Nov 14, 2023 02:00 PM AM[facility]ULATORY [facility] Dec 01, 2023 08:30 AM AMBULATORY - [facility] Dec 09, 2023 03:00 PM AMBULATORY - [facility] Dec 25, 2023 11:00 AM AMBULATORY - [facility] Jan 01, 2024 01:30 PM [facility]ULATORY [facility] Jan 01, 2024 02:00 PM [facility]ULAT[facility] Jan 02, 2024 02:00 PM AMBULATORY - [facility]AB [facility] Jan 21, 2024 02:30 PM AMBULATORY - PSYCHIATRY [facility] Jan 21, 2024 02:31 PM AMBULATORY - PSYCHIATRY [facility] Advance Directives: All historical and current Section Date Range: From patient's date of to the date document was created. This section includes ALL of a patient's completed or amended [place] Advance and Rescinded Directives. The entries below indicate that a directive exists for the patient, but an actual copy is not included with this document. The data comes from all [place] facilities. Date Advance Directives Provider Source August 25, 2023 ADVANCE DIRECTIVE MICHELLE LEVINE [facility] Encounter Notes: All associated encounter notes This section contains the clinical notes associated to the Encounter. Date/Time Encounter Note(s) Provider Source August 15, 2023 12:00 PM [facility] ANTICOAGULATION NOTE: LOCAL TITLE: ANTICOAGULATION MONITORING NOTE STANDARD TITLE: PHARMACY [facility] OF ANTICOAGULATION NOTE DATE OF NOTE: AUGUST 15, 2023@12:00 ENTRY DATE: AUGUST 15, 2023@12:00:45 AUTHOR: VERA GUTIERREZ EXP COSIGNER: URGENCY: STATUS: COMPLETED SUBJECTIVE: Drug: Dabigatran Indication: Atrial Fibrillation/Flutter Anticipated duration of anticoagulant therapy: Indefinite/extended (no anticipated stop date) Patient identified as needing review for the following: Medication renewal OBJECTIVE: Active NH and non-NH medication lists, pertinent laboratory tests (i.e., H/H, [...] L 6.9 0.1 0.4 91 ASSESSMENT/PLAN: Other: Left vm for return call to ext [facility] [place][note 2] for renewal. Will dismiss 30 day falg For ongoing monitoring, a population-based approach will be used to ensure safety, adherence to therapy, and appropriateness of prescribing. Periodic risk/benefit assessments will be performed as necessary. anti PBM PharmD Pharmacotherapy Rem V12: PHARMACIST INTERVENTIONS: ANTICOAGULATION THERAPY DIRECT ORAL ANTICOAGULANT (DOAC) MANAGEMENT Medication monitoring, no dosage change required, continue to monitor and assess /gurwinder/ VERA GUTIERREZ Clinical Loan Closer Signed: 08/15/2023 12:02 VERA GUTIERREZ [facility]
--- OUTSIDE RECORDS SUMMARY | 2024-05-13 13:39 | XMS_ITS | Encounter Summary ---
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 Name Role Phone ERNESTO ARBOLEDA Primary [...] PART A August 12, 2008 PART A [id number] [phone] Dawson YOUNGER PATIENT MEDICARE (WNR) MEDICARE (M) PART B August 12, 2008 PART B [id number] [phone] Dawson YOUNGER PATIENT MEDICARE (WNR) MEDICARE (M) PART A August 12, 2008 PART A [id number] [phone] Dawson YOUNGER PATIENT MEDICARE (WNR) MEDICARE (M) PART B August 12, 2008 PART B [id number] [phone] Dawson YOUNGER PATIENT MEDICARE (WNR) MEDICARE (M) PART A August 12, 2008 PART A [id number] Dawson YOUNGER PATIENT MEDICARE (WNR) MEDICARE (M) PART B August 12, 2008 PART B [id number] Dawson YOUNGER PATIENT MEDICARE (WNR) MEDICARE (M) PART B August 12, 2008 PART B [id number] [phone] Dawson YOUNGER PATIENT MEDICARE (WNR) MEDICARE (M) PART A August 12, 2008 PART A [id number] Dawson YOUNGER PATIENT MEDICARE (WNR) MEDICARE (M) PART A August 12, 2008 PART A [id number] Dawson YOUNGER PATIENT MEDICARE (WNR) MEDICARE (M) PART B August 12, 2008 PART B [id number] Dawson YOUNGER PATIENT MEDICARE PART D (WNR) PRESCRIPT ION PART D Apr 14, 2015 PART D [id number] [phone] Dawson YOUNGER PATIENT UNICARE PREFERRED PROVIDER ORGANIZAT ION (PPO) [facility] INDEM N August 12, 2008 [id number] Dawson YOUNGER PATIENT UNICARE MEDICARE [facility]PPLEMEN [facility] August 12, 2008 [id number] Dawson YOUNGER PATIENT UNICARE-G. I.C. MEDICAL EXPENSE (OPT/PROF ) [facility] IN[facility] N August 12, 2008 [id number] Dawson YOUNGER PATIENT Selected Encounter This section includes the information on record at [place] for the Encounter. Date/Time Encounter Type Encounter Description Reason Pro vider Source Jun 30, 2023 11:10 AM Outpatient Encounter ADMIN PAT ACTIVTIES (MASNONCT) IHE Encounter Template Text not used by [facility] Plan of Treatment: Future Appointments (+ 6 months) and Future Tests (+/- 45 days) The Plan of Treatment section includes future care activities for the patient [facility] [place] [facility] This section includes future appointments and future orders which are active, pending or scheduled. Future Appointments This section includes appointments that were scheduled to occur 6 months from the date of the Encounter, up to a maximum of 20 appointments. The data comes from all [place] treatment facilities. Appointment Date/Time Appointment Type Appointme nt Facility Name Aug 07, 2023 03:00 PM AMBULATORY - MEDICINE [facility] August 14, 2023 08:00 AM AMBULATORY - PSYCHIATRY [facility] August 18, 2023 01:00 PM [facility]ORY [facility]ONE [facility] [place] [facility] August 25, 2023 01:00 PM AMBULATORY - NONE [facility] [place] [facility] August 26, 2023 01:45 PM AM[facility]ULATORY [facility] [place] [facility] September 10, 2023 11:00 AM AMBULATORY - NONE [facility] [place] [facility] Sep 23, 2023 09:00 AM AMBULATORY [facility] [place] [facility] Oct 02, 2023 11:00 AM AMBULATORY [facility] NONE [facility] [place] [facility] Oct 30, 2023 02:30 PM AMBULATORY - MEDICINE [facility] Nov 07, 2023 01:00 PM [facility] Nov 13, 2023 10:00 AM AM[facility] [place] [facility] Nov 13, 2023 02:00 PM [facility]ULATORY [facility] [place] [facility] Nov 14, 2023 01:00 PM [facility] [place] [facility] Nov 14, 2023 02:00 PM AM[facility]ULATORY [facility] [place] [facility] Dec 01, 2023 08:30 AM AMBULATORY - PS[facility] [place] [facility] Dec 09, 2023 03:00 PM AMBULATORY - [facility] [place] [facility] Dec 25, 2023 11:00 AM AMBULATORY - PS[facility]ATRY [facility] [place] [facility] Lab Results: +/- 30 days of [...] Range Comment Jun 26, 2023 08:30 AM [facility] THYROID STIMULATING HORMONE Specimen Type: PLASMA No comment entered. Ordering Provider: KRISTINE MORROW Report Released Date/Time: Jun 17, 2023 02:51 PM Reporting Lab: [facility] [address] [place] [phone] Performing Lab: [facility] [address] [place] [phone] THYROID STIMULATING HORMONE 3.0800 u[IU]/mL 0.4600-4.70 00 Jun 26, 2023 08:30 AM [facility] PSA WITH REFLEX FREE PSA PANEL Specimen Type: SERUM No comment entered. Ordering Provider: KRISTINE MORROW Report Released Date/Time: Jun 17, 2023 02:51 PM Reporting Lab: [facility] [address] [facility] [phone] Performing Lab: [facility] [address] [facility] [phone] PROSTATE SPECIFI C ANTIGEN 5.0 ng/mL H 0.0-4.0 FREE PSA PERCENT 10.0 L >26 Jun 26, 2023 08:30 AM [facility] LIPID PANEL (NON-FASTING) Specimen Type: PLASMA No comment entered. Ordering Provider: KRISTINE MORROW Report Released Date/Time: Jun 17, 2023 02:51 PM Reporting Lab: [facility] [address] [facility] [phone] Performing Lab: [facility] [address] [facility] [phone] HDL 48 mg/dL >=40 CHOLESTEROL 143 mg/dL 0-199 LDL 84 mg/dL <99 Jun 26, 2023 08:30 AM [facility] URIC ACID Specimen Type: PLASMA No comment entered. Ordering Provider: KRISTINE MORROW Report Released Date/Time: Jun 17, 2023 02:51 PM Reporting Lab: [facility] [address] [facility] [phone] Performing Lab: [place] [address] [address] [facility] [phone] URIC ACID 5.3 mg/dL 4-8.5 Jun 26, 2023 08:30 AM [facility] URINE DRUG SCREEN PANEL Specimen Type: URINE No comment entered. Ordering Provider: GAGANDEEP EDWARD Report Released Date/Time: Sep 24, 2022 08:16 AM Reporting Lab: [address] [address] Performing Lab: [address] [address] ETHANOL (URINE) < 10 mg/dL 0-10 OPIATES SCREEN < 6 ng/mL 0-300 CANNABINOIDS SCREEN < 10 ng/mL 0-50 AMPHETAMINES/MET H AMPHETAMINE SCREEN < 100 ng/mL 0-1000 BARBITURATES SCREEN 986 ng/mL H 0-200 BENZODIAZEPINES SCREEN 26 ng/mL 0-200 COCAINE SCREEN < 40 ng/mL 0-300 OXYCODONE (URINE) 0 ng/mL 0-100 CREATININE 99.2 mg/dL >20.0 URINE FENTANYL SCREEN Negative ng/mL Jun 26, 2023 08:30 AM [facility] COMPREHENSIVE METABOLIC PANEL Specimen Type: PLASMA No comment entered. Ordering Provider: KRISTINE MORROW Report Released Date/Time: Jun 17, 2023 02:51 PM Reporting Lab: [address] [address] Performing Lab: [address] [address] EGFR 56 CHLORIDE 107 mmol/L 98-109 UREA [...] U/L 25-125 Jun 26, 2023 08:30 AM [facility] CBC WITH DIFFERENTIAL Specimen Type: BLOOD No comment entered. Ordering Provider: KRISTINE MORROW Report Released Date/Time: Jun 17, 2023 02:51 PM Reporting Lab: [facility] [address] [facility] [phone] Performing Lab: [facility] [address] [address] [facility] [phone] NUCLEATED RBC/10 0 WBC 0.0 /100{WBCs} 0-0 [...] 10*9/L 0.00-0.08 Jun 26, 2023 08:30 AM [facility] URINALYSIS, COMPLETE Specimen Type: URINE No comment entered. Ordering Provider: KRISTINE MORROW Report Released Date/Time: Jun 17, 2023 02:51 PM Reporting Lab: [facility] [address] [facility] [phone] Performing Lab: [place] [id number] [place] [facility] [phone] BILIRUBIN, URINE NEG Negative KETONES, URINE NEG [...] Source Jun 30, 2023 10:38 AM 150/94 [facility] Jun 30, 2023 10:28 AM 97.3 98 152/78 18 98 0 203 29 [facility] Social History: Smoking Status (Most current) and Tobacco Use (All prior to encounter date) This section includes the most current, and the historical, smoking and tobacco- related health factors from the [place] facility where the Encounter took place. Current Smoking Status This section includes the most current smoking, or tobacco-related health factor, from the [place] facility where the Encounter took place. Date/Time Current Smoking Status Comment Noemy esquivel Jun 30, 2023 10:30 AM [place]-TOBACCO NEVER USED [facility] Tobacco Use History This section includes a history of the smoking, or tobacco-related health factors, that were collected on or before the date of the Encounter. The data comes from the [place] facility where the Encounter took place. Date/Time Smoking Status/Tobacco Use Comment F acility Jul 04, 2022 08:30 AM VA-TOBACCO NEVER USED [facility] Oct 11, 2020 07:30 AM VA-TOBACCO FORMER USER [facility] Oct 11, 2020 07:30 AM VA-TOBACCO QUIT 15 YRS OR MORE [facility] Aug 03, 2019 10:36 AM VA-TOBACCO FORMER USER [facility] Aug 03, 2019 10:36 AM [place]-TOBACCO QUIT 15 YRS OR MORE [facility] Jun 03, 2018 02:25 PM VA-TOBACCO FORMER USER [facility] Jun 03, 2018 02:25 PM [place]-TOBACCO QUIT 15 YRS OR MORE [facility] Nov 13, 2017 10:57 AM QUIT TOBACCO >7 YEARS AGO [facility] Dec 25, 2016 11:20 AM LIFETIME NON-USER OF TOBACCO [facility] Jan 25, 2016 11:03 AM QUIT TOBACCO >7 YEARS AGO [facility] Dec 14, 2014 10:41 AM CURRENT TOBACCO USER [facility] Jan 09, 2010 08:26 AM NON TOBACCO USER - QUIT >7 YEARS AGO [facility] Jan 09, 2010 08:26 AM QUIT TOBACCO >7 YEARS AGO [facility] Jan 10, 2009 08:01 AM NON TOBACCO USER - QUIT >7 YEARS AGO [facility] Jan 10, 2009 08:01 AM QUIT TOBACCO >7 YEARS AGO [facility] Feb 02, 2008 02:38 PM NON TOBACCO USER - QUIT >7 YEARS AGO [facility] Feb 02, 2008 02:38 PM QUIT TOBACCO >7 YEARS AGO [facility] Advance Directives: All historical and current Section Date Range: From patient's date of to the date document was created. This section includes ALL of a patient's completed or amended [place] Advance and Rescinded Directives. The entries below indicate that a directive exists for the patient, but an actual copy is not included with this document. The data comes from all [place] facilities. Date Advance Directives Provider Source August 25, 2023 ADVANCE DIRECT[address] MICHELLE LEVINE [facility] Encounter Notes: All associated encounter notes This section contains the clinical notes associated to the Encounter. Date/Time Encounter Note(s) Provider Source Jun 30, 2023 11:25 AM ADDENDUM: LOCAL TITLE: Addendum STANDARD TITLE: ADDENDUM DATE OF NOTE: JUN 30, 2023@11:25:54 ENTRY DATE: JUN 30, 2023@11:25:56 AUTHOR: KOSTAS EDWARD EXP COSIGNER: URGENCY: STATUS: COMPLETED Request RN contact pt. for more information. If he is requesting medication adjustment, recommend he schedule an earlier appt. as next appt. is currently scheduled for September. /gurwinder/ KOSTAS EDWARD MD Psychiatrist Signed: 06/30/2023 11:26 Receipt Acknowledged By: 07/01/2023 11:26 /gurwinder/ MARCELLO MEDEIROSN, RN REGISTERED NURSE === --- Original Document --- 06/30/23 ADMINISTRATIVE NOTE: is requesting a call back from his [facility]. Non Emergency. At your convenience. Listed number confirmed. /gurwinder/ RICARDA DICKENS Advanced Bottle Caser Signed: 06/30/2023 11:12 Receipt Acknowledged By: 06/30/2023 11:26 /gurwinder/ KOSTAS EDWARD MD Psychiatrist CHEYANNEKOSTAS PALOMINO [facility] Jun 30, 2023 11:10 AM ADMINISTRATIVE NOT E: LOCAL TITLE: ADMINISTRATIVE NOTE STANDARD TITLE: ADMINISTRATIVE NOTE DATE OF NOTE: JUN 30, 2023@11:10 ENTRY DATE: JUN 30, 2023@11:11:04 AUTHOR: RICARDA DICKENS EXP COSIGNER: URGENCY: STATUS: COMPLETED ADMINISTRATIVE NOTE Has ADDENDA Hiram is requesting a call back from his [facility]. Non Emergency. At your convenience. Listed number confirmed. /gurwinder/ RICARDA DICKENS Advanced Bottle Caser Signed: 06/30/2023 11:12 Receipt Acknowledged By: 06/30/2023 11:26 /gurwinder/ KOSTAS EDWARD MD Psychiatrist 06/30/2023 ADDENDUM STATUS: COMPLETED Request RN contact pt. for more information. If he is requesting medication adjustment, recommend he schedule an earlier appt. as next appt. is currently scheduled for September. /gurwinder/ KOSTAS EDWARD MD Psychiatrist Signed: 06/30/2023 11:26 Receipt Acknowledged By: * AWAITING SIGNATURE * GAYLE STONE KIRBY T [facility]
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
--- OUTSIDE RECORDS SUMMARY | 2024-05-13 13:39 | XMS_ITS | Encounter Summary ---
Author Name [facility] [place] Organization [place] Address [address] [place] [address] Care Team Providers Care Mandarin Speaking Nanny Name Role Phone ERNESTO ARBOLEDA Primary Care [...] PART A August 12, 2008 PART A [id number] Dawson YOUNGER PATIENT MEDICARE (WNR) MEDICARE (M) PART B August 12, 2008 PART B [id number] Dawson YOUNGER PATIENT MEDICARE (WNR) MEDICARE (M) PART A August 12, 2008 PART A [id number] Dawson YOUNGER PATIENT MEDICARE (WNR) MEDICARE (M) PART B August 12, 2008 PART B [id number] [facility] Dawson YOUNGER PATIENT MEDICARE (WNR) MEDICARE (M) PART A August 12, 2008 PART A [id number] Dawson YOUNGER PATIENT MEDICARE (WNR) MEDICARE (M) PART B August 12, 2008 PART B [id number] Dawson YOUNGER PATIENT MEDICARE (WNR) MEDICARE (M) PART B August 12, 2008 PART B [id number] Dawson YOUNGER PATIENT MEDICARE (WNR) MEDICARE (M) PART A August 12, 2008 PART A [id number] [facility] [phone] Dawson YOUNGER PATIENT MEDICARE (WNR) MEDICARE (M) PART A August 12, 2008 PART A [id number] Dawson YOUNGER PATIENT MEDICARE (WNR) MEDICARE (M) PART B August 12, 2008 PART B [id number] [phone] Dawson YOUNGER PATIENT MEDICARE PART D (WNR) PRESCRIPT ION PART D Apr 14, 2015 PART D [id number] Dawson YOUNGER PATIENT UNICARE PREFERRED PROVIDER ORGANIZAT ION (PPO) [facility] N August 12, 2008 [id number] Dawson YOUNGER PATIENT UNICARE MEDICARE SUPPLEMEN [facility] N August 12, 2008 [id number] [id number] Dawson YOUNGER PATIENT UNICARE-G. I.C. MEDICAL EXPENSE (OPT/PROF ) [facility] N August 12, 2008 [id number] [id number] Dawson YOUNGER PATIENT Selected Encounter This section includes the information on record at [place] for the Encounter. Date/Time Encounter Type Encounter Description Reason Pro vider Source Dec 25, 2023 11:00 AM Outpatient Encounter [facility] - IND E Encounter Template Text not used by [place] Plan of Treatment: Future Appointments (+ 6 months) and Future Tests (+/- 45 days) The Plan of Treatment section includes future care activities for the patient [facility] [place] [facility]. This section includes future appointments and future orders which are active, pending or scheduled. Future Appointments This section includes appointments that were scheduled to occur 6 months from the date of the Encounter, up to a maximum of 20 appointments. The data comes from all [place] treatment facilities. Appointment Date/Time Appointment Type Appointme nt Facility Name Jan 01, 2024 01:30 PM AMBULATORY - MEDICINE [facility] [place] [facility] Jan 01, 2024 02:00 PM AMBULATORY - MEDICINE [facility] [place] [facility] [...] - MEDICINE [facility] [place] [facility] Feb 26, 2024 01:00 PM AMBULATORY - MEDICINE [facility] Apr 15, 2024 11:00 AM AMBULATORY - REHAB MEDICIN E [facility] [place] [facility] Apr 20, 2024 02:00 PM AMBULATORY - MEDICINE [facility] [place] [facility] Apr 22, 2024 10:00 AM AMBULATORY - MEDICINE [facility] [place] [facility] Apr 28, 2024 01:00 PM AMBULATORY - PSYCHIATRY [facility] [place] [facility] Apr 28, 2024 01:01 PM AMBULATORY - PSYCHIATRY [facility] [place] [facility] May 11, 2024 01:30 PM AMBULATORY - REHAB MEDICIN E [facility] [place] [facility] May 26, 2024 01:30 PM AMBULATORY - MEDICINE [facility] May 26, 2024 03:00 PM AMBULATORY - PSYCHIATRY [facility] [place] [facility] May 26, 2024 03:01 PM AMBULATORY - PSYCHIATRY [facility] [place] [facility] Jun 22, 2024 01:00 PM AMBULATORY - MEDICINE [facility] Jun 22, 2024 03:00 PM [facility] Active, Pending, and Scheduled Orders This section includes a listing of several types of active, pending, and scheduled orders, including clinic medications orders, diagnostic test orders, procedure orders and consult orders; where the start date of the order is 45 days before the date of the Encounter or 45 days after the date of theEncounter. The data comes from all [place] treatment facilities. Test Date/Time Test Type Test Details Facility Name Dec 12, 2023 11:03 AM Consult Order [facility] MEDIC[facility] Sample Maker [employer] [facility] Advance Directives: All historical and current Section Date Range: From patient's date of to the date document was created. This section includes ALL of a patient's completed or amended [place] Advance and Rescinded Directives. The entries below indicate that a directive exists for the patient, but an actual copy is not included with this document. The data comes from all [place] facilities. Date Advance Directives Provider Source August 25, 2023 ADVANCE DIRECTIVE MICHELLE LEVINE [facility] Encounter Notes: All associated encounter notes This section contains the clinical notes associated to the Encounter. Date/Time Encounter Note(s) Provider Source Dec 25, 2023 11:14 AM CLERICAL NOTE: LOCAL TITLE: APPOINTMENT NO SHOW STANDARD TITLE: CLERICAL NOTE DATE OF NOTE: DEC 25, 2023@11:14 ENTRY DATE: DEC 25, 2023@11:14:09 AUTHOR: LIU HERNANDEZ EXP COSIGNER: URGENCY: STATUS: COMPLETED Patient Name: SHANICE YOUNGER Patient SSN: [id number] Date and time of Appointment No show : 12/25/23 11:00 PATIENT PHONE - PHONE NUMBER [CELLULAR] - Patient's medical record was reviewed. Follow-up actions were determined and initiated: Please check/complete as applies: [X]Telephoned Directly [ ]Re-scheduled for next available appt [X]Sent a N0-show letter ( must call for appointment) [ ]Other (Emergent/Overbook, etc.): Additional Comments: [place] and unable to get [facility] to work for them, then could not hear me on the phone. They would like to come into clinic for visits. Please change to CVT appointments. Future Clinic Visits 01/01/2024 13:30 NHM/OPT/VISUAL IMAGING 01/01/2024 14:00 CWM/NO/OPTOMETRY/OSHINSKI 01/02/2024 14:00 CWM NO AUDIO EVAL B 02/26/2024 13:00 CWM/SO/PACT 1 SAMPLE COLLECTOR /es/ LIU HERNANDEZ M.D. Signed: 12/25/2023 11:15 Receipt Acknowledged By: 12/25/2023 11:25 /es/ Lexus [place] ADVANCED MEDIA MARKETING COORDINATOR LIU HERNANDEZ
--- OUTSIDE RECORDS SUMMARY | 2024-05-13 13:39 | XMS_ITS | Clinical Summary ---
Author Organization [facility] Address [address] [place] [address] Phone Care Team Providers Care Rivet Tapping Machine Operator Name Role Phone & Sports Medicine, [facility] Unavailable [phone] Kenney PARK MD, Christ Hernandez Unavailable [phone] Leti CUELLO, Maryan Rose Unavailable [phone] Junaid CUELLO, Bora Unavailable [phone] Andres CUELLO, Narendra Primary Care Provider [phone] Florecita CUELLO, Deni Unavailable [phone] Gloria Morris PA-C Unavailable [phone] Edita CUELLO, Martinez Unavailable [phone] Cathy CUELLO, Sylvester Penaloza Unavailable + [phone] Smiley Calderon Unavailable [phone] Valery CUELLO, Dane Unavailable [phone] Colton Guardado MD Unavailable [phone] [place] DO Unavailable [phone] Kay CUELLO, Merle Unavailable [phone] Reason for Visit and Chief Complaint CT Thorax w/o Contrast Problems Includes: Problems addressed during this encounter and other active Problems All Visits Onset Date Resolved Date Provider Condition S tatus 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 06/25/2021 Gloria Morris PA-C Active Last Documented On 04/02/2022 10:30AM ; [facility] Note: 50-69% left, non surgical in [address] gar, repeat in one year Diabetes Mellitus Type 2 with Complication 06/25/2021 Gloria BEARC Active Last Documented On 2 10:45AM ; [facility] Chronic Respiratory Failure 07/04/2020 Narendra miramontes MD Active Last Documented On 07/04/2020 11:28AM ; [facility] Note: on continuous home oxygen Coronary Artery Disease 04/21/2019 Jessica MODIP Active Last Documented On 0 8:03AM ; [facility] Atherosclerosis Coronary Art maryann with Angina Pectoris 01/15/2019 Gloria MOFFETT-C Active Last Documented On 9 9:21AM ; [facility] Edema 01/14/2019 Philip BECKER Active Last Documented On 9 2:52PM ; [facility] 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 Gloria MOFFETT-C Active Last Documented On 9 8:57AM ; [facility] Note: per pulm notedECHO with 45-50%, mi ldly reduced LVSF 06/2017 Osteoarthritis Localized Primary Knees Bilateral 04/03/2018 Juany MOFFETT-C Active Last Documented On 8 11:45AM ; [facility] 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 Narendra Campos MD Active Last Documented On 8 11:49AM ; [facility] Colon Polyps 06/20/2017 Martinez Kohler MD Active Last Documented On 8 11:24AM ; [facility] Atrial Fibrillation 10/10/2015 Narendra Campos MD Active Last Documented On 6 9:16AM ; [facility] Note: s/p ablation Chronic Obstructive Pulmonary Disease 11/29/2013 Narendra Campos MD Active Last Documented On 4 2:43PM ; [facility] Post-traumatic Stress Disorder 11/29/2013 Jt Campos MD Active Last Documented On 4 10:39AM ; [facility] Patellar Chondromalacia 03/02/2013 Narendra baltazar MD Active Last Documented On 4 7:42AM ; [facility] Note: Unchanged Asthma 09/04/2012 Narendra Campos MD Activ e Last Documented On 4 7:42AM ; [facility] Atherosclerosis Aorta 03/26/2012 Narendra mendez MD Active Last Documented On 4 7:42AM ; [facility] Note: on ct scan Rhinitis 08/04/2009 Narendra Campos MD Activ e Last Documented On 4 7:42AM ; [facility] Note: Unchanged Esophagitis Chronic Reflux 07/28/2009 Gloria Morris PA-C Active Last Documented On 4 2:20PM ; [facility] Note: Unchanged Hypertension Systemic 07/28/2009 Norma PANDEY Active Last Documented On 0 6:29PM ; [facility] Note: Unchanged Colonic Diverticulosis 10/06/2007 Narendra oconnor MD Active Last Documented On 4 7:42AM ; [facility] Note: Unchanged Hyperlipidemia Mixed 10/06/2007 Narendra gomez MD Active Last Documented On 4 7:42AM ; [facility] Note: Unchanged Plan of Treatment Care Programs Check if Patient is Eligible for [facility] Services Last Documented On 8 12:04AM ; [facility] Assessments Includes: Assessments from this encounter [...] 4 2:24PM By Shubham Patel APRN ; [facility] Albuterol Sulfate HFA 108 (9 0 Base) MCG/ACT Inhalation Aerosol Solution 05/13/2023 Provider: Brittany Patel APRN Diagnosis: Shortness of tristin ath 2 puffs q4h prn Last Documented On 4 2:24PM By Shubham Patel APRN ; [facility] Levocetirizine Dihydrochlori de 5 MG Oral Tablet 05/13/2023 Provider: Shubham Patel APRN Diagnosis: Allergic rhiniti s, unspecified 1 once daily Last Documented On 4 2:24PM By Shubham Patel APRN ; [facility] Albuterol Sulfate HFA 108 (90 Base) MCG/ACT Inhalation Aerosol Solution 07/19/2022 Provider: Frannie Guidry DNP OIL DERRICK OPERATOR-BC Diagnosis: Shortness of tristin ath 2 puffs q4h prn Last Documented On 3 9:03AM By Frannie Garrison APRN ; [facility] Oxygen Inhalation Gas 04/02/2022 Provider: Diagnosis: Last Documented On 2 10:09AM By Gloria Morris PA-C ; [facility] Atorvastatin Calcium 80 MG Oral Tablet 02/20/2021 Provider: Gloria Briscoe Diagnosis: Mixed hyperlipid emia 1 once daily Last Documented On 2 9:52AM By Arlette Aj ; [facility] hydrALAZINE HCl 25 MG OR TABS 12/29/2020 Provider: Colton Guardado MD Diagnosis: every 8 hours as needed for for BP over 160 Last Documented On 2 9:53AM By Arlette Aj ; [facility] Metoprolol Succinate ER 50 M G Oral Tablet Extended Release 24 Hour 07/14/2020 Provider: Diagnosis: Last Documented On 1 4:45AM By Jessica BECKER ; [facility] Furosemide 20 MG OR TABS 06/24/2019 Provider: Keegan Guardado MD Diagnosis: 1 once daily Last Documented On 1 11:14AM By Aleah Cerda ; [facility] Fluticasone Propionate 50MCG/ACT Nasal Suspension 02/19/2019 Provider: Gloria Morris PA-C Diagnosis: Chronic sinusiti s, unspecified use as directed 2 sprays eac h nare daily Last Documented On 9 8:23AM By Savita Caal ; [facility] Primidone 50 MG OR TABS 10/13/2018 Provider: Supriya Lombardo DO Diagnosis: Tremor, unspecif ied 3po q HS Last Documented On 9 8:22AM By Savita Caal ; [facility] Sertraline HCl 100MG Oral Tablet 09/07/2017 Provider : Diagnosis: Last Documented On 8 2:34PM By Colton Guardado M.D. ; [facility] Aspirin EC Low Dose 81MG Oral Tablet Delayed Release 0 07/11/2016 Provider: Diagnosis: Last Documented On 7 4:19PM By Colton Guardado M.D. ; [facility] Pradaxa 150MG Oral Capsule 07/11/2016 Provider: Diagnosis: Last Documented On 7 4:15PM By Colton Guardado M.D. ; [facility] Temazepam 15 MG OR CAPS 07/20/2014 Provider: Janay Morris PA-C Diagnosis: Long-term use of high-risk meds. 1-2 qHS prn. Last Documented On 5 11:02AM By Gloria Morris PA-C ; [facility] Medications Administered Includes: Administered Medications from this encounter No Administered Medications Recorded Results Includes: Results discussed during this encounter No Results Recorded For Specified Dates History of Present Illness Includes: History of Present Illness from this encounter No History of Present Illness Recorded Social History No Social History Recorded - Smoking Status Unknown Procedures and Surgical History Includes: Procedures from this encounter Procedures Code Diagnosis Performing Provider Service Location Service Date CT thorax w/o contrast 32641 Other disorders of lung Ismael Starkey MD [facility] 06/04/2023 Last Documented On 4 9:51AM ; [facility] Medical History Includes: Medical History addressed [...] Active Last Documented On 06/16/2023 2:04PM ; [facility] Note: facial lip swelling listaprill Allergy swollen 07/13/2020 Active Last Documented On 4 2:04PM ; [facility] Encounters Encounter Provider Location Date Check-In Time Check-Out Time Diagnosis CT Thorax w/o Contrast [facility] 4 1:15PM 1:16PM Insurance Includes: Active Insurance Policies Plan Name Member ID Group # Subscriber Relationship Effect ana m Dates 1 - Medicare Part B [id number] Nick Javad Oliva Self 2 - [employer]/ Unicare [id number] Nick Choeey Self 07/13 - Unknown Advance Directives Includes: Current Advance Directives Directive Pat Aware Third Democrat Effective Date Reviewed [facility] Power of Export Freight Specialist/Healthcare Surrogate Yes 08/08/2017 Current and Verified Clinical Notes Includes: Clinical Notes from this encounter No Clinical Notes Recorded
== END 2024-05-13 11:05 | disposition home or self-care (01) ==
PROVIDERS: PCP Internal Medicine; Visit Provider Physician Assistant Medical
DX: I48.0 Paroxysmal atrial fibrillation (principal); J41.0 Simple chronic bronchitis; R41.89 Other symptoms and signs involving cognitive functions and awareness; F41.8 Other specified anxiety disorders; G47.33 Obstructive sleep apnea (adult) (pediatric); S22.31XA Fracture of one rib, right side, initial encounter for closed fracture; R29.6 Repeated falls; I10 Essential (primary) hypertension

== ENCOUNTER → 2024-05-13 10:16 | Outpatient (BNVA) | payer MEDICARE, OTHER, SELFPAY | PROVIDERS: PCP Internal Medicine; Visit Provider Physician Assistant Medical | DX: J41.0 Simple chronic bronchitis (principal); J96.10 Chronic respiratory failure, unspecified whether with hypoxia or hypercapnia; N18.30 Chronic kidney disease, stage 3 unspecified; Z99.81 Dependence on supplemental oxygen; R41.89 Other symptoms and signs involving cognitive functions and awareness; F41.8 Other specified anxiety disorders; I48.0 Paroxysmal atrial fibrillation; G47.33 Obstructive sleep apnea (adult) (pediatric); R29.6 Repeated falls; I10 Essential (primary) hypertension; S22.39XA Fracture of one rib, unspecified side, initial encounter for closed fracture; X58.XXXA Exposure to other specified factors, initial encounter; Y93.9 Activity, unspecified; Y92.9 Unspecified place or not applicable; Y99.9 Unspecified external cause status | CPT/HCPCS: 96127; 99212 ==

== ENCOUNTER → 2024-05-20 20:30 | Outpatient (REF) | payer OTHER, SELFPAY ==
--- OUTSIDE RECORDS SUMMARY | 2024-05-20 21:27 | XMS_ITS | Clinical Summary ---
Author Organization [facility] Address [address] [place] [address] Phone Care Team Providers Care Reexaminer Name Role Phone & Sports Medicine, [facility] Unavailable + [phone] Kenney PARK MD, Christ Hernandez Unavailable +[phone] Leti CUELLO, Maryan Rose Unavailable +[phone] Junaid CUELLO, Bora Unavailable [phone] Andres CUELLO, Narendra Primary Care Provider [phone] Deni Bernabe MD Unavailable [phone] Gloria Morris PA-C Unavailable +[phone] Edita CUELLO, Martinez Unavailable +[phone] Cathy CUELLO, Sylvester Penaloza Unavailable + [phone] Smiley Calderon Unavailable +[phone] Dane Rasmussen MD Unavailable [phone] Colton Guardado MD Unavailable +[phone] Mt Mistry DO Unavailable +[phone] Kay CUELLO, Merle Unavailable [phone] Reason for Visit and Chief Complaint [Patient Encounter] Problems Includes: Problems addressed during this encounter and other active Problems All Visits Onset Date Resolved Date Provider Condition S tatus 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 06/25/2021 Gloria Odioso Arturo PA-C Active Last Documented On 04/02/2022 10:30AM ; [facility] Note: 50-69% left, non surgical in [address] gar, repeat in one year Diabetes Mellitus Type 2 with Complication 06/25/2021 Gloria MOFFETT-C Active Last Documented On 2 10:45AM ; [facility] Chronic Respiratory Failure 07/04/2020 Narendra miramontes MD Active Last Documented On 07/04/2020 11:28AM ; [facility] Note: on continuous home oxygen Coronary Artery Disease 04/21/2019 Jessica Mony yarbrough MEDIA MANAGER Active Last Documented On 0 8:03AM ; [facility] Atherosclerosis Coronary Art maryann with Angina Pectoris 01/15/2019 Gloria MOFFETT-C Active Last Documented On 9 9:21AM ; [facility] Edema 01/14/2019 Philip BECKER Active Last Documented On 9 2:52PM ; [facility] 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 Gloria MOFFETT-C Active Last Documented On 9 8:57AM ; [facility] Note: per pulm notedECHO with 45-50%, mi ldly reduced LVSF 06/2017 Osteoarthritis Localized Primary Knees Bilateral 04/03/2018 Juany loyola PA-C Active Last Documented On 8 11:45AM ; [facility] 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 Narendra Campos MD Active Last Documented On 8 11:49AM ; [facility] Colon Polyps 06/20/2017 Martinez Kohler MD Active Last Documented On 8 11:24AM ; [facility] Atrial Fibrillation 10/10/2015 Narendra Campos MD Active Last Documented On 6 9:16AM ; [facility] Note: s/p ablation Chronic Obstructive Pulmonary Disease 11/29/2013 Narendra Campos MD Active Last Documented On 4 2:43PM ; [facility] Post-traumatic Stress Disorder 11/29/2013 Jt Campos MD Active Last Documented On 4 10:39AM ; [facility] Patellar Chondromalacia 03/02/2013 Narendra baltazar MD Active Last Documented On 4 7:42AM ; [facility] Note: Unchanged Asthma 09/04/2012 Narendra Campos MD Activ e Last Documented On 4 7:42AM ; [facility] Atherosclerosis Aorta 03/26/2012 Narendra mendez MD Active Last Documented On 4 7:42AM ; [facility] Note: on ct scan Rhinitis 08/04/2009 Narendra Campos MD Activ e Last Documented On 4 7:42AM ; [facility] Note: Unchanged Esophagitis Chronic Reflux 07/28/2009 Gloria Morris PA-C Active Last Documented On 4 2:20PM ; [facility] Note: Unchanged Hypertension Systemic 07/28/2009 Norma PANDEY Active Last Documented On 0 6:29PM ; [facility] Note: Unchanged Colonic Diverticulosis 10/06/2007 Narendra oconnor MD Active Last Documented On 4 7:42AM ; [facility] Note: Unchanged Hyperlipidemia Mixed 10/06/2007 Narendra gomez MD Active Last Documented On 4 7:42AM ; [facility] Note: Unchanged Plan of Treatment Pending Tests Order Diagnosis Results Due Ordering P rokaleigh Pulmonology Studies - DME CPAP-(Heated Humidity) Length of need 99 months Obstructive sleep apnea (adult) (pediatric) 05/15/20 Mt Mistry DO Last Documented On 1 2:50PM ; [facility] Pulmonology Studies PFT (Full) Shortness of breath 1 Mt Mistry DO Last Documented On 1 2:37PM ; [facility] Pulmonology Studies Pulmonary Rehab Chronic obst ructive pulmonary disease, unspecified 03/01/21 Mt Mistry DO Last Documented On 1 3:46PM ; [facility] Pulmonology Studies PFT (Full) Shortness of breath 2 Mt Mistry DO Last Documented On 2 11:03AM ; [facility] Pulmonology Studies - DME O2-Length of need 99 months Chronic obstructive pulmonary disease, unspecified 06/30/23 Mt Mistry DO Last Documented On 4 3:12PM ; [facility] Pulmonology Studies - DME Portable Oxygen Concentrator-Length of need 99 mos Chronic obstructive pulmonary disease, unspecified 06/30/23 Mt Mistry DO Last Documented On 4 3:14PM ; [facility] Care Programs Check if Patient is Eligible for CCM Services Last Documented On 8 12:04AM ; [facility] Future Tests Order Diagnosis Results Due Ordering Pr ovider Radiology Studies - Plain Film XRAY-Chest,PA/L AT Chronic obstructive pulmonary disease, unspecified 05/22/20 Mt Mistry DO Last Documented On 1 3:20PM ; [facility] Pulmonology Studies 6 Minute Walk Test Shortness of breath 06/14/20 Mt Mistry DO Last Documented On 1 11:40AM ; [facility] Pulmonology Studies Pulmonary Rehab Chronic obst ructive pulmonary disease, unspecified 01/24/22 Mt Mistry DO Last Documented On 2 8:38AM ; [facility] - *Radiology Study CT Chest- W/O contrast Other pneumonia, unspecified organism 08/15/22 Mt Mistry DO Last Documented On 3 3:12PM ; [facility] Assessments Includes: Assessments from this encounter [...] 4 2:24PM By Shubham Patel APRN ; [facility] Albuterol Sulfate HFA 108 (9 0 Base) MCG/ACT Inhalation Aerosol Solution 05/13/2023 Provider: Brittany Patel APRN Diagnosis: Shortness of tristin ath 2 puffs q4h prn Last Documented On 4 2:24PM By Shubham Patle APRN ; [facility] Levocetirizine Dihydrochlori de 5 MG Oral Tablet 05/13/2023 Provider: Shubham Patel APRN Diagnosis: Allergic rhiniti s, unspecified 1 once daily Last Documented On 4 2:24PM By Shubham Patel APRN ; [facility] Albuterol Sulfate HFA 108 (90 Base) MCG/ACT Inhalation Aerosol Solution 07/19/2022 Provider: Frannie Guidyr DNP CHIEF CRUISER-BC Diagnosis: Shortness of tristin ath 2 puffs q4h prn Last Documented On 3 9:03AM By Frannie Garrison APRN ; [facility] Oxygen Inhalation Gas 04/02/2022 Provider: Diagnosis: Last Documented On 2 10:09AM By Gloria Morris PA-C ; [facility] Atorvastatin Calcium 80 MG Oral Tablet 02/20/2021 Provider: Gloria Briscoe Diagnosis: Mixed hyperlipid emia 1 once daily Last Documented On 2 9:52AM By Arlette Aj ; [facility] hydrALAZINE HCl 25 MG OR TABS 12/29/2020 Provider: Colton Guardado MD Diagnosis: every 8 hours as needed for for BP over 160 Last Documented On 2 9:53AM By Arlette Aj ; [facility] Metoprolol Succinate ER 50 M G Oral Tablet Extended Release 24 Hour 07/14/2020 Provider: Diagnosis: Last Documented On 1 4:45AM By Jessica BECKER ; [facility] Furosemide 20 MG OR TABS 06/24/2019 Provider: Keegan Guardado MD Diagnosis: 1 once daily Last Documented On 1 11:14AM By Aleah Cerda ; [facility] Fluticasone Propionate 50MCG/ACT Nasal Suspension 02/19/2019 Provider: Gloria Morris PA-C Diagnosis: Chronic sinusiti s, unspecified use as directed 2 sprays eac h nare daily Last Documented On 9 8:23AM By Savita Caal ; [facility] Primidone 50 MG OR TABS 10/13/2018 Provider: Supriya Lombardo DO Diagnosis: Tremor, unspecif ied 3po q HS Last Documented On 9 8:22AM By Savita Caal ; [facility] Sertraline HCl 100MG Oral Tablet 09/07/2017 Provider : Diagnosis: Last Documented On 8 2:34PM By Colton Guardado M.D. ; [facility] Aspirin EC Low Dose 81MG Oral Tablet Delayed Release 0 07/11/2016 Provider: Diagnosis: Last Documented On 7 4:19PM By Colton Guardado M.D. ; [facility] Pradaxa 150MG Oral Capsule 07/11/2016 Provider: Diagnosis: Last Documented On 7 4:15PM By Colton Guardado M.D. ; [facility] Temazepam 15 MG OR CAPS 07/20/2014 Provider: Janay Morris PA-C Diagnosis: Long-term use of high-risk meds. 1-2 qHS prn. Last Documented On 5 11:02AM By Gloria Morris PA-C ; [facility] Medications Administered Includes: Administered Medications from [...] Active Last Documented On 06/16/2023 2:04PM ; [facility] Note: facial lip swelling listaprill Allergy swollen 07/13/2020 Active Last Documented On 2:04PM ; [facility] Encounters Encounter Provider Location Date Check-In Time Check-Out Time Diagnosis [Patient Encounter] Mt Mistry DO 06/30/2023 3:10PM 11:59PM Insurance Includes: Active Insurance Policies Plan Name Member ID Group # Subscriber Relationship Effect ana m Dates 1 - Medicare Part B [id number] Nick Oliva Self 2 - Common Wealth [employer]/ Unicare [id number] Nick Oliva Self 07/13 - Unknown Advance Directives Includes: Current Advance Directives Directive Pat Aware Third Libertarian Effective Date Reviewed [facility] Power of Speedboat Driver/Healthcare Surrogate Yes 08/08/2017 Current and Verified Clinical Notes Includes: Clinical Notes from this encounter No Clinical Notes Recorded
--- OUTSIDE RECORDS SUMMARY | 2024-05-20 21:27 | XMS_ITS ---
Care Plan - [facility] Created on: May 20, 2024 Nick Oliva : 1945 Sex: Male Author Organization [facility] Address [address] [place] [address] Phone Care Team Providers Care Straight Line Press Setter Name Role Phone & Sports Medicine, [facility] Unavailable + [phone] Kenney PARK MD, Christ Hernandez Unavailable +[phone] Leti CUELLO, Maryan Rose Unavailable [phone] Junaid CUELLO, Bora Unavailable [phone] Andres CUELLO, Narendra Primary Care Provider [phone] Florecita CUELLO, Deni Unavailable [phone] Arturo TALBOT, Gloria Camargo Unavailable [phone] Edita CUELLO, Martinez Unavailable [phone] Cathy CUELLO, Sylvester Penaloza Unavailable + [phone] Smiley Calderon Unavailable [phone] Valery UCELLO, Dane Unavailable [phone] Colton Guardado MD Unavailable [phone] Mt Mistry DO Unavailable +[phone] Kay CUELLO, Merle Unavailable [phone]
--- OUTSIDE RECORDS SUMMARY | 2024-05-20 21:27 | XMS_ITS | Clinical Summary ---
Author Organization [facility] Address [address] [place] [address] Phone Care Team Providers Care Vocational Education Teacher Name Role Phone & Sports Medicine, [facility] Unavailable + [phone] Kenney PARK MD, Christ Hernandez Unavailable +[phone] Leti CUELLO, Maryan Rose Unavailable [phone] Junaid CUELLO, Bora Unavailable +[phone] Andres CUELLO, Narendra Primary Care Provider [phone] Deni Bernabe MD Unavailable [phone] Gloria Morris PA-C Unavailable +[phone] Edita CUELLO, Martinez Unavailable +[phone] Cathy CUELLO, Sylvester Penaloza Unavailable + [phone] Smiley Calderon Unavailable [phone] Dane Rasmussen MD Unavailable [phone] Colton Guardado MD Unavailable [phone] Mt Mistry DO Unavailable [phone] Kay CUELLO, Merle Unavailable [phone] Reason for Visit and Chief Complaint [Patient Encounter] Problems Includes: Problems addressed during this encounter and other active Problems All Visits Onset Date Resolved Date Provider Condition S tatus 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 06/25/2021 Gloria Odioso Arturo PA-C Active Last Documented On 04/02/2022 10:30AM ; [facility] Note: 50-69% left, non surgical in [address] gar, repeat in one year Diabetes Mellitus Type 2 with Complication 06/25/2021 Gloria MOFFETT-C Active Last Documented On 2 10:45AM ; [facility] Chronic Respiratory Failure 07/04/2020 Narendra miramontes MD Active Last Documented On 07/04/2020 11:28AM ; [facility] Note: on continuous home oxygen Coronary Artery Disease 04/21/2019 Jessica Mony yarbrough PERFORMANCE REPORTER Active Last Documented On 0 8:03AM ; [facility] Atherosclerosis Coronary Art maryann with Angina Pectoris 01/15/2019 Gloria MOFFETT-C Active Last Documented On 9 9:21AM ; [facility] Edema 01/14/2019 Philip BECKER Active Last Documented On 9 2:52PM ; [facility] 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 Gloria MOFFETT-C Active Last Documented On 9 8:57AM ; [facility] Note: per pulm notedECHO with 45-50%, mi ldly reduced LVSF 06/2017 Osteoarthritis Localized Primary Knees Bilateral 04/03/2018 Juany loyola PA-C Active Last Documented On 8 11:45AM ; [facility] 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 Narendra Campos MD Active Last Documented On 8 11:49AM ; [facility] Colon Polyps 06/20/2017 Martinez Kohler MD Active Last Documented On 8 11:24AM ; [facility] Atrial Fibrillation 10/10/2015 Narendra Campos MD Active Last Documented On 6 9:16AM ; [facility] Note: s/p ablation Chronic Obstructive Pulmonary Disease 11/29/2013 Narendra Campos MD Active Last Documented On 4 2:43PM ; [facility] Post-traumatic Stress Disorder 11/29/2013 Jt Campos MD Active Last Documented On 4 10:39AM ; [facility] Patellar Chondromalacia 03/02/2013 Narendra baltazar MD Active Last Documented On 4 7:42AM ; [facility] Note: Unchanged Asthma 09/04/2012 Narendra Campos MD Activ e Last Documented On 4 7:42AM ; [facility] Atherosclerosis Aorta 03/26/2012 Narendra mendez MD Active Last Documented On 4 7:42AM ; [facility] Note: on ct scan Rhinitis 08/04/2009 Narendra Campos MD Activ e Last Documented On 4 7:42AM ; [facility] Note: Unchanged Esophagitis Chronic Reflux 07/28/2009 Gloria Morris PA-C Active Last Documented On 4 2:20PM ; [facility] Note: Unchanged Hypertension Systemic 07/28/2009 Norma PANDEY Active Last Documented On 0 6:29PM ; [facility] Note: Unchanged Colonic Diverticulosis 10/06/2007 Narendra oconnor MD Active Last Documented On 4 7:42AM ; [facility] Note: Unchanged Hyperlipidemia Mixed 10/06/2007 Narendra gomez MD Active Last Documented On 4 7:42AM ; [facility] Note: Unchanged Plan of Treatment Pending Tests Order Diagnosis Results Due Ordering P rovider Z[employer] Training BardyDx Paroxysmal atria l fibrillation 05/18/21 Colton Guardado MD Last Documented On 2 4:50PM ; [facility] ZZZ Training BardyDx Palpitations 05/25/21 Colton Garcia MD Last Documented On 2 5:47AM ; [facility] Care Programs Check if Patient is Eligible for CCM Services Last Documented On 8 12:04AM ; [facility] Future Tests Order Diagnosis Results Due Ordering Pr ovider Cardiology Studies Tilt Table Test Athscl heart disease [facility] [place] coronary artery w/o [facility] 10/27/19 Colton Guardado MD Last Documented On 0 3:58PM ; [facility] Cardiology Studies Nuclear Stress Test Athscl heart disease [facility] [place] coronary artery w/o [facility] 10/27/19 Colton Guardado MD Last Documented On 0 3:59PM ; [facility] Studies Echocardiogram Athscl heart disease of [place] coronary artery w/o [facility] 10/27/19 Colton Guardado MD Last Documented On 0 3:59PM ; [facility] Cardiology Studies Echocardiogram Paroxysmal at rial fibrillation 02/25/22 Colton Guardado MD Last Documented On 2 12:04PM ; [facility] Assessments Includes: Assessments from this encounter [...] 0 refills Diagnosis: 1 once daily Pharmacy: [facility] - [address] [address], [id number] - Last Documented On 4 10:28AM By Neo Lovelace ; [facility] Current Medications (continue as prescribed) Trelegy Ellipta 100-62.5-25 MCG/ACT Inhalation Aerosol Powder Breath Activated 05/13/2023 Provider: Shubham Patel APRN Diagnosis: Chronic obstruct ana m pulmonary disease, unspecified 1 puff qd Last Documented On 4 2:24PM By Shubham Patel APRN ; [facility] Albuterol Sulfate HFA 108 (9 0 Base) MCG/ACT Inhalation Aerosol Solution 05/13/2023 Provider: Brittany Patel APRN Diagnosis: Shortness of tristin ath 2 puffs q4h prn Last Documented On 4 2:24PM By Shubham Patel APRN ; [facility] Levocetirizine Dihydrochlori de 5 MG Oral Tablet 05/13/2023 Provider: Shubham Patel APRN Diagnosis: Allergic rhiniti s, unspecified 1 once daily Last Documented On 4 2:24PM By Shubham Patel APRN ; [facility] Albuterol Sulfate HFA 108 (90 Base) MCG/ACT Inhalation Aerosol Solution 07/19/2022 Provider: Frannie Guidry DNP LEARNING SUPPORT SPECIALIST-BC Diagnosis: Shortness of tristin ath 2 puffs q4h prn Last Documented On 3 9:03AM By Frannie Garrison APRN ; [facility] Oxygen Inhalation Gas 04/02/2022 Provider: Diagnosis: Last Documented On 2 10:09AM By Gloria Morris PA-C ; [facility] Atorvastatin Calcium 80 MG Oral Tablet 02/20/2021 Provider: Gloria Briscoe Diagnosis: Mixed hyperlipid emia 1 once daily Last Documented On 2 9:52AM By Arlette Aj ; [facility] hydrALAZINE HCl 25 MG OR TABS 12/29/2020 Provider: Colton Guardado MD Diagnosis: every 8 hours as needed for for BP over 160 Last Documented On 2 9:53AM By Arlette Aj ; [facility] Metoprolol Succinate ER 50 M G Oral Tablet Extended Release 24 Hour 07/14/2020 Provider: Diagnosis: Last Documented On 1 4:45AM By Jessica BECKER ; [facility] Furosemide 20 MG OR TABS 06/24/2019 Provider: Keegan Guardado MD Diagnosis: 1 once daily Last Documented On 1 11:14AM By Aleah Cerda ; [facility] Fluticasone Propionate 50MCG/ACT Nasal Suspension 02/19/2019 Provider: Gloria Morris PA-C Diagnosis: Chronic sinusiti s, unspecified use as directed 2 sprays eac h nare daily Last Documented On 9 8:23AM By Savita Caal ; [facility] Primidone 50 MG OR TABS 10/13/2018 Provider: Supriya Lombardo DO Diagnosis: Tremor, unspecif ied 3po q HS Last Documented On 9 8:22AM By Savita Caal ; [facility] Sertraline HCl 100MG Oral Tablet 09/07/2017 Provider : Diagnosis: Last Documented On 8 2:34PM By Colton Guardado M.D. ; [facility] Aspirin EC Low Dose 81MG Oral Tablet Delayed Release 0 07/11/2016 Provider: Diagnosis: Last Documented On 7 4:19PM By Colton Guardado M.D. ; [facility] Pradaxa 150MG Oral Capsule 07/11/2016 Provider: Diagnosis: Last Documented On 7 4:15PM By Colton Guardado M.D. ; [facility] Temazepam 15 MG OR CAPS 07/20/2014 Provider: Janay Morris PA-C Diagnosis: Long-term use of high-risk meds. 1-2 qHS prn. Last Documented On 5 11:02AM By Gloria Morris PA-C ; [facility] Medications Administered Includes: Administered Medications from [...] Active Last Documented On 06/16/2023 2:04PM ; [facility] Note: facial lip swelling listaprill Allergy swollen 07/13/2020 Active Last Documented On 4 2:04PM ; [facility] Encounters Encounter Provider Location Date Check-In Time Check-Out Time Diagnosis [Patient Encounter] Colton Guardado MD 4 9:58AM 11:59PM Insurance Includes: Active Insurance Policies Plan Name Member ID Group # Subscriber Relationship Effect ana m Dates 1 - Medicare Part B [id number] Nick Oliva Self 2 - Common Wealth Serrvice/ Unicare [id number] Nick Oliva Self 07/13 - Unknown Advance Directives Includes: Current Advance Directives Directive Pat Aware Third Alliance Party Effective Date Reviewed [facility] Power of Ice Puller/Healthcare Surrogate Yes 08/08/2017 Current and Verified Clinical Notes Includes: Clinical Notes from this encounter No Clinical Notes Recorded
--- OUTSIDE RECORDS SUMMARY | 2024-05-20 21:29 | XMS_ITS | Clinical Summary ---
Author Organization [facility] Address [address] [place] [address] Phone Care Team Providers Care [employer] Boss Name Role Phone & Sports Medicine, [facility] Unavailable + [phone] Kenney PARK MD, Christ Hernandez Unavailable [phone] Leti CUELLO, Maryan Rose Unavailable [phone] Junaid CUELLO, Bora Unavailable [phone] Andres CUELLO, Narendra Primary Care Provider [phone] Deni Bernabe MD Unavailable [phone] Gloria Morris PA-C Unavailable [phone] Edita CUELLO, Martinez Unavailable [phone] Cathy CUELLO, Sylvester Penaloza Unavailable + [phone] Smiley Calderon Unavailable [phone] Valery CUELLO, Dane Unavailable [phone] Colton Guardado MD Unavailable [phone] [place] DO Unavailable [phone] Kay CUELLO, Merle Unavailable [phone] Reason for Visit and Chief Complaint [facility] Medicare Follow Up Visit Problems Includes: Problems addressed during this encounter and other active Problems Current Visit Onset Date Resolved Date Provider Osvaldo laura Status 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 06/25/2021 Gloria Odioso Arturo PA-C Active Last Documented On 04/02/2022 10:30AM ; [facility] Note: 50-69% left, non surgical in [address] gar, repeat in one year Diabetes Mellitus Type 2 with Complication 06/25/2021 Gloria MOFFETT-C Active Last Documented On 2 10:45AM ; [facility] Chronic Respiratory Failure 07/04/2020 Narendra miramontes MD Active Last Documented On 07/04/2020 11:28AM ; [facility] Note: on continuous home oxygen Coronary Artery Disease 04/21/2019 Jessica MODIP Active Last Documented On 0 8:03AM ; [facility] Atherosclerosis Coronary Art maryann with Angina Pectoris 01/15/2019 Gloria MOFFETT-C Active Last Documented On 9 9:21AM ; [facility] Edema 01/14/2019 Pihlip MODIP Active Last Documented On 9 2:52PM ; [facility] Coronary Artery Disease 10/22/2018 Gloria Morris PA-C Inactive Last Documented On 9 9:21AM ; [facility] 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 Gloria Morris PA-C Active Last Documented On 9 8:57AM ; [facility] Note: per pulm notedECHO with 45-50%, mi ldly reduced LVSF 06/2017 Osteoarthritis Localized Primary Knees Bilateral 04/03/2018 Juany loyola PA-C Active Last Documented On 8 11:45AM ; [facility] 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 Narendra Campos MD Active Last Documented On 8 11:49AM ; [facility] Colon Polyps 06/20/2017 Martinez Kohler MD Active Last Documented On 8 11:24AM ; [facility] Atrial Fibrillation 10/10/2015 Narendra Campos MD Active Last Documented On 6 9:16AM ; [facility] Note: s/p ablation Chronic Obstructive Pulmonary Disease 11/29/2013 Narendra Campos MD Active Last Documented On 4 2:43PM ; [facility] Post-traumatic Stress Disorder 11/29/2013 Jt Campos MD Active Last Documented On 4 10:39AM ; [facility] Patellar Chondromalacia 03/02/2013 Narendra baltazar MD Active Last Documented On 4 7:42AM ; [facility] Note: Unchanged Asthma 09/04/2012 Narendra Campos MD Activ e Last Documented On 4 7:42AM ; [facility] Atherosclerosis Aorta 03/26/2012 Narendra mendez MD Active Last Documented On 4 7:42AM ; [facility] Note: on ct scan Rhinitis 08/04/2009 Narendra Campos MD Activ e Last Documented On 4 7:42AM ; [facility] Note: Unchanged Hypertension Systemic 07/28/2009 Norma PANDEY Active Last Documented On 0 6:29PM ; [facility] Note: Unchanged Colonic Diverticulosis 10/06/2007 Narendra oconnor MD Active Last Documented On 4 7:42AM ; [facility] Note: Unchanged Hyperlipidemia Mixed 10/06/2007 Narendra gomez MD Active Last Documented On 4 7:42AM ; [facility] Note: Unchanged Past Visits Onset Date Resolved Date Provider Condition Status Esophagitis Chronic Reflux 07/28/2009 Gloria Morris PA-C Active Last Documented On 06/16/2023 2:20PM ; [facility] Note: Unchanged Plan of Treatment In reviewing the patient's chart, performing examination and/or evaluation, counseling and education, ordering medications, tests if needed and documentation time spent was a minimum of 30 minutes. - Last Documented On 06/16/2023 3:00PM ; [facility] Visit complexity inherent to evaluation and management associated with medical care services that serve as the continuing focal point for all needed health care services and/or with medical care services that are part of ongoing care related to a patient's single, serious condition or a complex condition - Last Documented On 06/16/2023 3:00PM ; [facility] Pending Tests Order Diagnosis Results Due Ordering P lud[facility]ader Lab Neuropathy (RO) 04/29/23 Gloria Morris PA-C Last Documented On 4 3:03PM ; [facility] Lab Hemoglobin A1c 04/29/23 Gloria Morris PA-C Last Documented On 4 3:03PM ; [facility] Lab Antinuclear Antibodies, IFA 04/29/23 Gloria Morris PA-C Last Documented On 4 3:03PM ; [facility] Lab Vitamin B12 04/29/23 Gloria Morris PA-C Last Documented On 4 3:03PM ; [facility] Lab Basic Metabolic Panel (8) 04/29/23 Gloria Morris PA-C Last Documented On 4 3:03PM ; [facility] Lab COMPLETE BLOOD COUNT 04/29/23 Janay dieter Morris PA-C Last Documented On 4 3:03PM ; [facility] Lab SED RATE, iSED 04/29/23 Gloria Morris PA-C Last Documented On 4 3:03PM ; [facility] Lab Folate (Folic Acid), Serum 04/29/23 Gloria Morris PA-C Last Documented On 4 3:03PM ; [facility] Lab Thyroxine (T4) Free, Direct, S 04/29 Gloria Morris PA-C Last Documented On 4 3:03PM ; [facility] Lab Hepatitis A Ab, IgM 04/29/23 Christopher Morris PA-C Last Documented On 4 3:03PM ; [facility] Lab Hepatitis A Ab, Total 04/29/23 Miguel Morris PA-C Last Documented On 4 3:03PM ; [facility] Lab Hepatitis B Core Ab, Tot 04/29/23 Gloria Morris PA-C Last Documented On 4 3:03PM ; [facility] Lab Hepatitis B Surface Ag 04/29/23 Ra helen Morris PA-C Last Documented On 4 3:03PM ; [facility] HEPATITIS B CORE AB TOTAL W/REFL IGM 04/29/23 Gloria Morris PA-C Last Documented On 4 3:03PM ; [facility] Hepatitis B Core Ab, IgM 04/29/23 Gloria Morris PA-C Last Documented On 4 3:03PM ; [facility] Hepatic Function Panel (7) 04/29/23 Gloria Morris PA-C Last Documented On 4 3:03PM ; [facility] Albumin/Creat Ratio Urine 04/29/23 Gloria Morris PA-C Last Documented On 4 3:03PM ; [facility] Lab RPR 04/29/23 Gloria Morris PA-C Last Documented On 4 3:03PM ; [facility] Lab Protein Electro.,S 04/29/23 Gloria Morris PA-C Last Documented On 4 3:03PM ; [facility] Lab TSH 04/29/23 Gloria Morris PA-C Last Documented On 4 3:03PM ; [facility] Lab Protein Electro, Random Urine Gloria Morris PA-C Last Documented On 4 3:03PM ; [facility] Lab Vitamin D, 25-Hydroxy 04/29/23 Miguel Morris PA-C Last Documented On 4 3:03PM ; [facility] Care Programs Check if Patient is Eligible for CCM Services Last Documented On 8 12:04AM ; [facility] Future Tests Order Diagnosis Results Due Ordering Pr ovider Radiology Studies - Ultrasound U/S-Soft 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 04/18/21 Gloria Raman MOFFETT-Shaila Last Documented On 1 10:13AM ; [facility] Radiology Studies - Vascular Ultrasound Carotid Doppler Dizziness and giddiness 05/15/21 Gloria Raman Morris PA-C Last Documented On 2 10:33AM ; [facility] Refer To Neurology Dizziness and giddiness 06/07/21 Tremaine daniellelinda Morris PA-C Last Documented On 2 1:34PM ; [facility] Refer To ENT Dizziness and giddiness 06/07/21 R ledy MOFFETT-C Last Documented On 2 1:34PM ; [facility] Refer To Cardiology Cardiac arrhythmia, unspecified 05/16 08/03 Gloria MOFFETT-C Last Documented On 2 1:49PM ; [facility] Refer To Surgery-Vascular Occlusion and s tenosis of left carotid artery 06/20/21 Gloria Raman MOFFETT-C Last Documented On 2 9:10AM ; [facility] Refer To Gastroenterology Polyp of colon 12/12/22 Janay garcias Raman MOFFETT-Shaila Last Documented On 3 1:44PM ; [facility] Lab NEETA (RO1) 04/29/23 Gloria MOFFETT-C Last Documented On 4 8:52AM ; [facility] Lab CBC (RO1) 04/29/23 Gloria MOFFETT-C Last Documented On 4 8:52AM ; [facility] Lab Vitamin B12 (RO1) 04/29/23 Gloria MOFFETT-C Last Documented On 4 8:52AM ; [facility] Lab Vitamin D 25 hydroxy (RO1) 04/29/23 Glorianatividad MOFFETT-C Last Documented On 4 8:52AM ; [facility] Lab TSH , Free T4 (GVC) 04/29/23 Racdanni mckeon Raman MOFFETT-Shaila Last Documented On 4 8:52AM ; [facility] Lab Diabetes Panel (RO) 05/22/23 Ra helen MOFFETT-Shaila Last Documented On 3 1:28PM ; [facility] Refer To Neurology Dizziness and giddiness 05/22/23 R ledy MOFFETT-Shaila Last Documented On 4 8:55AM ; [facility] Refer To Physical Therapy Dizziness and giddiness Gloria MOFFETT-Shaila Last Documented On 4 8:55AM ; [facility] Assessments Includes: Assessments from this encounter Findings - Allergic rhinitis due to food - Last Documented On 06/16/2023 3:00PM ; [facility] - Unspecified atrial fibrillation - Last Documented On 06/16/2023 3:00PM ; [facility] - Atherosclerotic heart disease of [place] coronary artery without angina pectoris - Last Documented On 06/16/2023 3:00PM ; [facility] - Chronic combined systolic (congestive) and diastolic (congestive) heart failure - Last Documented On 06/16/2023 3:00PM ; [facility] - Essential (primary) hypertension - Last Documented On 06/16/2023 3:00PM ; [facility] - Atherosclerosis of aorta - Last Documented On 06/16/2023 3:00PM ; [facility] - Atherosclerotic heart disease of [place] coronary artery with other forms of angina pectoris - Last Documented On 06/16/2023 3:00PM ; [facility] - Occlusion and stenosis of left carotid artery - Last Documented On 06/16/2023 3:00PM ; [facility] - Edema, unspecified - Last Documented On 06/16/2023 3:00PM ; [facility] - Mild intermittent asthma, uncomplicated - Last Documented On 06/16/2023 3:00PM ; [facility] - Chronic obstructive pulmonary disease, unspecified - Last Documented On 06/16/2023 3:00PM ; [facility] - Chronic respiratory failure with hypoxia - Last Documented On 06/16/2023 3:00PM ; [facility] - Sleep apnea, unspecified - Patient reports feeling tired all the time and not getting good sleep at night due to issues with CPAP use. - Last Documented On 06/16/2023 3:00PM ; [facility] - Plan: Continue CPAP, following with pumlonology - Last Documented On 06/16/2023 3:00PM ; [facility] - Sleep apnea, unspecified - Last Documented On 06/16/2023 3:00PM ; [facility] - Polyp of colon - Last Documented On 06/16/2023 3:00PM ; [facility] - Diverticulosis of large intestine without perforation or abscess without bleeding - Last Documented On 06/16/2023 3:00PM ; [facility] - Body mass index [BMI] 28.0-28.9, adult - Last Documented On 06/16/2023 3:00PM ; [facility] - Mixed hyperlipidemia - Last Documented On 06/16/2023 3:00PM ; [facility] - Type 2 diabetes mellitus with other specified complication - Note the patient's A1C level at 6.8, indicative of type 2 diabetes mellitus, - Last Documented On 06/16/2023 3:00PM ; [facility] - Recommend dietary modifications, emphasizing the reduction of sugar intake - Last Documented On 06/16/2023 3:00PM ; [facility] - Hypotension, unspecified - Document the patient's low blood pressure readings at 100 over 60 and chronic light-headedness, raising concerns for orthostatic hypotension and the effects of isosorbide. - Last Documented On 06/16/2023 3:00PM ; [facility] - Suggest a tilt table test to investigate orthostatic hypotension. - Last Documented On 06/16/2023 3:00PM ; [facility] - Advise the patient to withhold blood pressure medication if readings are low and to take hydralazine only if blood pressure is elevated. - Last Documented On 06/16/2023 3:00PM ; [facility] - Coordinate with Dr. Guardado's office regarding: - Last Documented On 06/16/2023 3:00PM ; [facility] - The potential discontinuation of isosorbide. - Last Documented On 06/16/2023 3:00PM ; [facility] - Arranging a possible final visit before the patient relocates - Last Documented On 06/16/2023 3:00PM ; [facility] - Primary osteoarthritis, unspecified site - Last Documented On 06/16/2023 3:00PM ; [facility] - Chondromalacia patellae, unspecified knee - Last Documented On 06/16/2023 3:00PM ; [facility] - Dizziness and giddiness - Patient reports a history of falls, lightheadedness, and dizziness, which may be related to a previous stroke and/or peripheral neuropathy from [employer] [place] exposure. - Last Documented On 06/16/2023 3:00PM ; [facility] - Possible orthostatic hypotension or vertigo. - Last Documented On 06/16/2023 3:00PM ; [facility] - Complicated case - Last Documented On 06/16/2023 3:00PM ; [facility] - Plan: Refer the patient to a neurologist for further evaluation, would consider possible tilt table test to assess for orthostatic hypotension. Additionally, refer the patient to [facility] for vestibular rehabilitation to address balance issues Labwork WNL - Last Documented On 06/16/2023 3:00PM ; [facility] - Advise patient to f/u with new PCP at the [facility] after reolcating to [place] for further evluation - Last Documented On 06/16/2023 3:00PM ; [facility] - Post-traumatic stress disorder, unspecified - Last Documented On 06/16/2023 3:00PM ; [facility] Medication management - Last Documented On 06/16/2023 3:00PM ; [facility] - [facility] prim[facility] for tremors [facility] - Last Documented On 06/16/2023 3:00PM ; [facility] - Plan: Monitor the patient's medication use and consider potential side effects that may contribute to dizziness and balance issues. Encourage the patient to check blood pressure during episodes of dizziness to assess for potential correlation with low blood pressure. - Last Documented On 06/16/2023 3:00PM ; [facility] Medical Equipment - Implanted Devices Includes: Current Devices No Medical Equipment Recorded Medications Includes: Medications discussed during this encounter and other current Medications Discontinued / Stopped on this date Colton Guardado MD on 05/28/2023 Isosorbide Mononitrate ER 30 MG Oral Tablet Extended Release 24 Hour Provider: Colton estrella MD Diagnosis: Last Documented On 4 3:30PM By Arlette Aj ; [facility] Isosorbide Mononitrate ER 30 MG Oral Tablet Extended Release 24 Hour Provider: Colton estrella MD Diagnosis: Last Documented On 4 2:30PM By Gloria Morris PA-C ; [facility] Current Medications (continue as prescribed) Trelegy Ellipta 100-62.5-25 MCG/ACT Inhalation Aerosol Powder Breath Activated 05/13/2023 Provider: Shubham Patel APRN Diagnosis: Chronic obstruct ana m pulmonary disease, unspecified 1 puff qd Last Documented On 4 2:24PM By Shubham Patel APRN ; [facility] Albuterol Sulfate HFA 108 (9 0 Base) MCG/ACT Inhalation Aerosol Solution 05/13/2023 Provider: Brittany Patel APRN Diagnosis: Shortness of tristin ath 2 puffs q4h prn Last Documented On 4 2:24PM By Shubham Patel APRN ; [facility] Levocetirizine Dihydrochlori de 5 MG Oral Tablet 05/13/2023 Provider: Shubham Patel APRN Diagnosis: Allergic rhiniti s, unspecified 1 once daily Last Documented On 4 2:24PM By Shubham Patel APRN ; [facility] Albuterol Sulfate HFA 108 (90 Base) MCG/ACT Inhalation Aerosol Solution 07/19/2022 Provider: Frannie Guidry DNP [employer] Diagnosis: Shortness of tristin ath 2 puffs q4h prn Last Documented On 3 9:03AM By Frannie Garrison APRN ; [facility] Oxygen Inhalation Gas 04/02/2022 Provider: Diagnosis: Last Documented On 2 10:09AM By Gloria Morris PA-C ; [facility] Atorvastatin Calcium 80 MG Oral Tablet 02/20/2021 Provider: Gloria Briscoe Diagnosis: Mixed hyperlipid emia 1 once daily Last Documented On 2 9:52AM By Arlette Aj ; [facility] hydrALAZINE HCl 25 MG OR TABS 12/29/2020 Provider: Colton Guardado MD Diagnosis: every 8 hours as needed for for BP over 160 Last Documented On 2 9:53AM By Arlette Aj ; [facility] Metoprolol Succinate ER 50 M G Oral Tablet Extended Release 24 Hour 07/14/2020 Provider: Diagnosis: Last Documented On 1 4:45AM By Jessica BECKER ; [facility] Furosemide 20 MG OR TABS 06/24/2019 Provider: Keegan Guardado MD Diagnosis: 1 once daily Last Documented On 1 11:14AM By Aleah Cerda ; [facility] Fluticasone Propionate 50MCG/ACT Nasal Suspension 02/19/2019 Provider: Gloria Morris PA-C Diagnosis: Chronic sinusiti s, unspecified use as directed 2 sprays eac h nare daily Last Documented On 9 8:23AM By Savita Caal ; [facility] Primidone 50 MG OR TABS 10/13/2018 Provider: Supriya Lombardo DO Diagnosis: Tremor, unspecif ied 3po q HS Last Documented On 9 8:22AM By Savita Caal ; [facility] Sertraline HCl 100MG Oral Tablet 09/07/2017 Provider : Diagnosis: Last Documented On 8 2:34PM By Colton Guardado M.D. ; [facility] Aspirin EC Low Dose 81MG Oral Tablet Delayed Release 0 07/11/2016 Provider: Diagnosis: Last Documented On 7 4:19PM By Colton Guardado M.D. ; [facility] Pradaxa 150MG Oral Capsule 07/11/2016 Provider: Diagnosis: Last Documented On 7 4:15PM By Colton Guardado M.D. ; [facility] Temazepam 15 MG OR CAPS 07/20/2014 Provider: Janay Morris PA-C Diagnosis: Long-term use of high-risk meds. 1-2 qHS prn. Last Documented On 5 11:02AM By Gloria Morris PA-C ; [facility] Past Medications on file dilTIAZem HCl ER Coated Beads 240 MG Oral Capsule Extended Release 24 Hour 07/07/2023 - 08/06/2023 Provider: Colton Guardado MD Diagnosis: 1 once daily Last Documented On 4 10:28AM By Neo Lovelace ; [facility] Trelegy Ellipta 100-62.5-25 MCG/ACT Inhalation Aerosol Powder Breath Activated 11/19/2022 - 08/16/2023 Provider: Zofia BECKER Diagnosis: Chronic obstruct ana m pulmonary disease, unspecified 1 puff daily Last Documented On 3 12:17PM By Zofia Barrios APRN ; [facility] Nebulizer/Tubing/Mouthpiece Kit 08/08/19 23 - 12/05/2022 Provider: Sommer BECKER Diagnosis: Chronic obstruct ana m pulmonary disease, unspecified use as directed Last Documented On 3 5:13PM By Lauryn Parr ; [facility] Zetia 10 MG Oral Tablet 04/17/2022 - 01/12/2023 Provider: Colton Guardado MD Diagnosis: Hyperlipidemia, unspecified 1 once daily Last Documented On 3 3:05PM By Sean Plascencia ; [facility] Clobetasol Propionate 0.05% External Cream 01/17/2021 - 03/18/2021 Provider: Smiley BECKER 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 Do not apply to face or groin Last Documented On 1 1:43PM By ROSITA Blackburn ; [facility] Medications Administered Includes: Administered Medications from [...] 95 Last Documented: On 06/16/2023 2:06PM ; [facility] Results Includes: Results discussed during this encounter Vitamin B12 ORCHARD IHL Ordered by Gloria anand PA-C on 05/20/[address] [place] [address], [phone] Collected: 05/20/2023 Report ed: 05/20/2023 15:04 tel: Last Documented On 4 3:03PM ; [facility] Reviewed by Gloria escalante PA-C on 06/16/2023; [...] Note: The above testing was completed at [facility], [address] [place] [id number] (CLIA#[id number]) PH#: VITAMIN B-12 509 pg/mL ([phone]) None Last Documented On 4 12:37PM ; [facility] FOLATE ORCHARD IHL Ordered by Gloria anand PA-C on 05/20/[address] [place] [address], [phone] Collected: 05/20/2023 Report ed: 05/20/2023 15:13 tel: Last Documented On 4 3:03PM ; [facility] Reviewed by Gloria escalante PA-C on 06/16/2023; [...] Note: The above testing was completed at [facility], [address] [place] [id number] (CLIA#[id number]) PH#: FOLATE 8.1 ng/mL (>3.0) None Last Documented On 4 12:37PM ; [facility] SED RATE, iSED ORCHARD IHL Ordered by Gloria anand PA-C on 05/20/[address] [place] [address], [phone] Collected: 05/20/2023 Report ed: 05/20/2023 14:00 tel: Last Documented On 4 3:03PM ; [facility] Reviewed by Gloria escalante PA-C on 06/16/2023; [...] Note: The above testing was completed at [facility], [address] [place] [id number] (CLIA#[id number]) PH#: SED_RATE 2 mm/hr (0-19) None Last Documented On 4 12:37PM ; [facility] Hepatitis A Ab, IgM ORCHARD IHL Ordered by Gloria anand PA-C on 05/20/[address] [place] [address], [address] Collected: 05/20/2023 Report ed: 05/20/2023 15:46 tel:[phone] Last Documented On 4 3:03PM ; [facility] Reviewed by Gloria escalante PA-C on 06/16/2023; [...] Note: The above testing was completed at [facility], [address] [place] [id number] (CLIA#[id number]) PH#: Hep A Ab, IgM Non-Reactive COI (Non-Reactive) None Last Documented On 4 12:37PM ; [facility] Hepatitis A Ab, Total ORCHARD IHL Ordered by Gloria anand PA-C on 05/20/[address] [place] [address], [address] Collected: 05/20/2023 Report ed: 05/20/2023 15:46 tel:[phone] Last Documented On 4 3:03PM ; [facility] Reviewed by Gloria escalante PA-C on 06/16/2023; [...] Note: The above testing was completed at [facility], [address] [place] [id number] (CLIA#[id number]) PH#: Hep A Ab, Total Non-Reactive COI (Non-Reactive) None Last Documented On 4 12:37PM ; [facility] Hepatitis B Surface Ag ORCHARD IHL Ordered by Gloria anand PA-C on 05/20/[address] [place] [address], [phone] Collected: 05/20/2023 Report ed: 05/20/2023 15:46 tel:[phone] Last Documented On 4 3:03PM ; [facility] Reviewed by Gloria escalante PA-C on 06/16/2023; [...] Note: The above testing was completed at [facility], [address] [place] [address] (CLIA#[id number]) PH#: Hep B Surface Ag Non-Reactive COI (Non-Reactive) None Last Documented On 4 12:37PM ; [facility] Hepatitis B Core Ab, Tot ORCHARD IHL Ordered by Gloria anand PA-C on 05/20/[address] [place] [address] [place], [address] Collected: 05/20/2023 Report ed: 05/20/2023 15:46 tel:[phone] Last Documented On 4 3:03PM ; [facility] Reviewed by Gloria escalante PA-C on 06/16/2023; [...] Note: The above testing was completed at [facility], [address] [place] [address] (CLIA#[id number]) PH#: Hep B Core Ab, Total Non-Reactive COI (Non-Reactive) None Last Documented On 4 12:37PM ; [facility] Hepatitis B Core Ab, IgM ORCHARD IHL Ordered by Gloria anand PA-C on 05/20/[address] [place] [address], [address] Collected: 05/20/2023 Report ed: 05/20/2023 15:46 tel:[phone] Last Documented On 4 3:03PM ; [facility] Reviewed by Gloria escalante PA-C on 06/16/2023; [...] Note: The above testing was completed at [facility], [id number] [place] [address] (CLIA#[id number]) PH#: Hep B Core Ab, IgM Non-Reactive COI (Non-Reactive) None Last Documented On 4 12:37PM ; [facility] COMPLETE BLOOD COUNT ORCHARD IHL Ordered by Gloria anand PA-C on 05/20/[address] [place] [address], [address] Collected: 05/20/2023 Report ed: 05/20/2023 14:12 tel:[phone] Last Documented On 4 3:03PM ; [facility] Reviewed by Gloria escalante PA-C on 06/16/2023; [...] Note: The above testing was completed at [facility], [address] [place] [address] (CLIA#[id number]) PH#: BASO # 0.0 3/UL (0.0-0.2) None Last Documented On 4 12:37PM ; [facility] BASO% 0.4 % None Last Documented On 4 12:37PM ; [facility] EOS # 0.4 3/UL (0.0-0.7) None Last Documented On 4 12:37PM ; [facility] EOS% 5.5 % None Last Documented On 4 12:37PM ; [facility] HCT 46.2 % (42.0-52.0) None Last Documented On 4 12:37PM ; [facility] HGB 14.8 g/dL (14.0-18.0) None Last Documented On 4 12:37PM ; [facility] LYMPH# 2.1 3/UL (0.9-4.8) None Last Documented On 4 12:37PM ; [facility] LYMPH % 30.1 % None Last Documented On 4 12:37PM ; [facility] MCH 30.0 PG (27.0-31.0) None Last Documented On 4 12:37PM ; [facility] MCHC 32.0 g/dL (32.0-37.0) None Last Documented On 4 12:37PM ; [facility] MCV 93.7 fL (80.0-94.0) None Last Documented On 4 12:37PM ; [facility] MONO# 0.6 3/UL (0.0-1.1) None Last Documented On 4 12:37PM ; [facility] MONO% 8.2 % None Last Documented On 4 12:37PM ; [facility] NEUT # 4.0 3/UL (2.2-8.1) None Last Documented On 4 12:37PM ; [facility] NEUT % 55.5 % None Last Documented On 4 12:37PM ; [facility] PLT 246 3/UL (130-400) None Last Documented On 4 12:37PM ; [facility] RBC 4.93 6/UL (4.20-5.60) None Last Documented On 4 12:37PM ; [facility] RDW 12.6 % (11.0-15.0) None Last Documented On 4 12:37PM ; [facility] WBC 7.1 3/UL (4.3-10.8) None Last Documented On 4 12:37PM ; [facility] Vitamin D, 25-Hydroxy ORCHARD IHL Ordered by Gloria anand PA-C on 05/20/2023 [address] [facility], [place], [address] Collected: 05/20/2023 Report ed: 05/20/2023 15:05 tel: Last Documented On 4 3:03PM ; [facility] Reviewed by Gloria escalante PA-C on 06/16/2023; [...] Note: The above testing was completed at [facility], [address] [place] [address] (CLIA#[id number]) PH#: VIT D 25-HYDROXY 32.60 ng/mL (30.00-100.00) None Last Documented On 4 12:37PM ; [facility] Thyroxine (T4) Free, Direct, S ORCHARD I HL Ordered by Gloria anand PA-C on 05/20/[address] [place] [address], [address] Collected: 05/20/2023 Report ed: 05/20/2023 15:13 tel: Last Documented On 4 3:03PM ; [facility] Reviewed by Gloria escalante PA-C on 06/16/2023; [...] Note: The above testing was completed at [facility], [address] [place] [address] (CLIA#[id number]) PH#: FT4 (FREE THYROXINE) 1.00 ng/dL (0.80-1.80) None Last Documented On 4 12:37PM ; [facility] TSH ORCHARD IHL Ordered by Gloria anand PA-C on 05/20/[address] [place] [address], [address] Collected: 05/20/2023 Report ed: 05/20/2023 15:19 tel:[phone] Last Documented On 4 3:03PM ; [facility] Reviewed by Gloria escalante PA-C on 06/16/2023; [...] Note: The above testing was completed at [facility], [address] [place] [address] (CLIA#[id number]) PH#: TSH 2.96 mIU/mL (0.27-4.20) None Last Documented On 4 12:37PM ; [facility] Hemoglobin A1c ORCHARD IHL Ordered by Gloria anand PA-C on 05/20/[address] [place] [address], [address] Collected: 05/20/2023 Report ed: 05/20/2023 15:05 tel:[phone] Last Documented On 4 3:03PM ; [facility] Reviewed by Gloria escalante PA-C on 06/16/2023; [...] Note: The above testing was completed at [facility], [address] [place] [address] (CLIA#[id number]) PH#: HEMOGLOBIN A1C 6.8 % (0.0-6.4) H (High) Last Documented On 4 12:37PM ; [facility] Note: < 5.7 Decreased risk of diabetes 5 .7-6.0 Increased risk of diabetes 6.1-6.4 High risk of diabetes > or = 6.5 Consistant with diabetes Basic Metabolic Panel (8) ORCHARD L Ordered by Gloria anand PA-C on 05/20/[address] [place] [address], [address] Collected: 05/20/2023 Report ed: 05/20/2023 18:35 tel: Last Documented On 4 3:03PM ; [facility] Reviewed by Gloria escalante PA-C on 06/16/2023; All test results are final unless otherwise noted. Review Note Provider Name Date reviewed today at OV Gloria Morris PA-C 07/2023 *The doctor has reviewed the labs and will discuss at your next appointment 05/27/23 Mleanie Liberty Martin PA-C 05/27/2023 pt was notifies and sta beot she would let him know 05/27/2023 Note: The above testing was completed at [facility], [address] [place] [address] (CLIA#[id number]) PH#: BUN/CREAT RATIO 16.2 CALC (6.0-25.0) None Last Documented On 4 12:37PM ; [facility] BUN 18.3 mg/dL (5.0-25.0) None Last Documented On 4 12:37PM ; [facility] CALCIUM 9.1 mg/dL (8.5-10.5) None Last Documented On 4 12:37PM ; [facility] CHLORIDE 104 mEq/L (95-108) None Last Documented On 4 12:37PM ; [facility] CARBON DIOXIDE 26 mEq/L (21-32) None Last Documented On 4 12:37PM ; [facility] CREATININE 1.13 mg/dL (0.50-1.50) None Last Documented On 4 12:37PM ; [facility] eGFR 66 mL/min/1.73m2 (>=60) None Last Documented On 4 12:37PM ; [facility] Note: The eGFR is based on the CKD-EPI 2 021 equation. To calculate the new eGFR from a previous Creatinine result, goto https://www.kidney.org/professionals/kdoqi/gfr_calculatorThe National Kidney Foundation recommends using the CKD-EPI Creatinine Equation (2020) to estimate GFR. More informationregarding this recommendation may be found:https://www.ajkd.org/article/P5570-02363439027-5/fulltext GLUCOSE 118 mg/dL (70-99) H (High) Last Documented On 4 12:37PM ; [facility] POTASSIUM 5.0 mEq/L (3.5-5.3) None Last Documented On 4 12:37PM ; [facility] SODIUM 141 mEq/L (135-146) None Last Documented On 4 12:37PM ; [facility] Albumin/Creat Ratio Urine ORCHARD IHL Ordered by Gloria anand PA-C on 05/20/2023 [address] [facility], [place], [address] Collected: 05/20/2023 Report ed: 05/20/2023 16:34 tel: Last Documented On 4 3:03PM ; [facility] Reviewed by Gloria escalante PA-C on 06/16/2023; [...] Note: The above testing was completed at [facility], [address] [place] [address] (CLIA#[id number]) PH#: ALB/CREAT RATIO 4.3 ug/mg (0.0-30.0) None Last Documented On 4 12:37PM ; [facility] ALBUMIN, URINE 6.9 mg/L (0.0-200.0) None Last Documented On 4 12:37PM ; [facility] CREATININE, URINE 159.5 mg/dl (20.0-300.0) None Last Documented On 4 12:37PM ; [facility] Hepatic Function Panel (7) ORCHARD IHL Ordered by Gloria anand PA-C on 05/20/[address] [place] [address], [address] Collected: 05/20/2023 Report ed: 05/20/2023 19:16 tel: Last Documented On 4 3:03PM ; [facility] Reviewed by Gloria escalante PA-C on 06/16/2023; [...] Note: The above testing was completed at [facility], [address] [place] [address] (CLIA#[id number]) PH#: A/G RATIO 1.7 CALC (1.1-2.3) None Last Documented On 4 12:37PM ; [facility] ALBUMIN 4.4 g/dL (3.5-5.2) None Last Documented On 4 12:37PM ; [facility] ALK. PHOSPHATASE 105 U/L (35-118) None Last Documented On 4 12:37PM ; [facility] ALT (SGPT) 21 U/L (0-41) None Last Documented On 4 12:37PM ; [facility] AST (SGOT) 16 U/L (0-40) None Last Documented On 4 12:37PM ; [facility] DIRECT BILIRUBN 0.10 mg/dL (0.00-0.40) None Last Documented On 4 12:37PM ; [facility] GLOBULIN 2.5 g/dL (1.9-4.2) None Last Documented On 4 12:37PM ; [facility] INDIRECT BILIRUBIN 0.21 mg/dL (0.10-0.80) None Last Documented On 4 12:37PM ; [facility] TOTAL BILIRUBIN 0.31 mg/dL (0.00-1.20) None Last Documented On 4 12:37PM ; [facility] TOTAL PROTEIN 6.9 g/dL (6.0-8.5) None Last Documented On 4 12:37PM ; [facility] Antinuclear Antibodies, IFA ORCHARD IHL Ordered by Gloria anand PA-C on 05/20/2023 [address] [place], [address] Collected: 05/20/2023 Report ed: 05/23/2023 10:01 tel: Last Documented On 4 3:03PM ; [facility] Reviewed by Gloria escalante PA-C on 06/16/2023; All test results are final unless otherwise noted. Review Note Provider Name Date reviewed today at [facility] Gloria Morris PA-C 07/2023 pt was notifies and sta beto she would let him know 05/27/2023 Note: [facility] [id number] performed at: [place], [facility], [address] [place], [address], Machine Boss:DR. Betsy HuffmanQuest Collection Date/Time: [id number] Results Received Date/Time: [id number] Reported Date/Time: [id number]: NO NEETA SCREEN, IFA NEGATIVE (NEGATIVE) None Last Documented On 12:37PM ; [facility] Note: NEETA IFA is a first line [...] clinicallysuspected inflammatory myopathies.AC-0: NegativeInternational Consensus on NEETA Patterns(https://doi.org/10.1515/oofw-6434-8572)Fo r additional information, please refer tohttp://education.[employer]/faq/XYH103 (This link is being provided for informational/educational purposes only.) RPR ORCHARD IHL Ordered by Gloria anand PA-C on 05/20/2023 [address] [place], [place], [address] Collected: 05/20/2023 Report ed: 05/23/2023 10:01 tel: Last Documented On 4 3:03PM ; [facility] Reviewed by Gloria escalante PA-C on 06/16/2023; All test results are final unless otherwise noted. Review Note Provider Name Date reviewed today at Gloria Morris PA-C 07/2023 pt was notifies and sta beto she would let him know 05/27/2023 Note: [facility] [id number] performed at: [facility], [address] [place], [place], , Machine Boss: Jose Ga Collection Date/Time: [id number] Results Received Date/Time: [id number] Reported Date/Time: [id number]: NO RPR (MONITOR) W/REFL TITER NON-REACTIVE (NON-REACTIVE) None Last Documented On 4 12:37PM ; [facility] Protein Electro.,S ORCHARD IHL Ordered by Gloria anand PA-C on 05/20/2023 [address] [place], [address] Collected: 05/20/2023 Report ed: 05/23/2023 10:01 tel: Last Documented On 4 3:03PM ; [facility] Reviewed by Gloria escalante PA-C on 06/16/2023; All test results are final unless otherwise noted. Review Note Provider Name Date reviewed today at Gloria Morris PA-C 07/2023 pt was notifies and sta beto she would let him know 05/27/2023 Note: [facility] [id number] performed at: [facility], [address], [place], [place], , Machine Boss: Jose Ga Collection Date/Time: [id number] Results Received Date/Time: [id number] Reported Date/Time: [id number]: NO PROTEIN, TOTAL 7.0 g/dL (6.1-8.1) None Last Documented On 4 12:37PM ; [facility] ALBUMIN 3.9 g/dL (3.8-4.8) None Last Documented On 4 12:37PM ; [facility] ALPHA 1 GLOBULIN 0.3 g/dL (0.2-0.3) None Last Documented On 4 12:37PM ; [facility] ALPHA 2 GLOBULIN 0.7 g/dL (0.5-0.9) None Last Documented On 4 12:37PM ; [facility] GAMMA GLOBULIN 1.1 g/dL (0.8-1.7) None Last Documented On 4 12:37PM ; [facility] INTERPRETATION SEE NOTE None Last Documented On 4 12:37PM ; [facility] Note: Possible monoclonal protein (M-pro tein) present.Suggest serum immunofixation. ABNORMAL PROTEIN BAND 1 0.2 g/dL (NONE DETECTED) H (High) Last Documented On 4 12:37PM ; [facility] BETA 1 GLOBULIN 0.5 g/dL (0.4-0.6) None Last Documented On 4 12:37PM ; [facility] BETA 2 GLOBULIN 0.5 g/dL (0.2-0.5) None Last Documented On 4 12:37PM ; [facility] Protein Electro, Random Urine ORCHARD IH L Ordered by Gloria anand PA-C on 05/20/2023 [address] [place], [address] Collected: 05/20/2023 Report ed: 05/27/2023 09:40 tel: Last Documented On 4 3:03PM ; [facility] Reviewed by Gloria escalante PA-C on 06/16/2023; All test results are final unless otherwise noted. Review Note Provider Name Date reviewed today at OV Gloria Morris PA-C 07/2023 Note: [facility] [id number] performed at: , [facility], [facility] [place], [address], Machine Boss: Jose Sheridan MDQuest Collection Date/Time: [id number] Results Received Date/Time: [id number] Reported Date/Time: [id number]: NO CREATININE, RANDOM URINE 148 mg/dL (20-320) None Last Documented On 4 12:37PM ; [facility] PROTEIN/CREATININE RATIO 74 mg/g_creat (25-148) None Last Documented On 4 12:37PM ; [facility] PROTEIN, TOTAL, RANDOM UR 11 mg/dL (5-25) None Last Documented On 4 12:37PM ; [facility] INTERPRETATION SEE NOTE None Last Documented On 4 12:37PM ; [facility] Note: Normal Pattern ALBUMIN 41 % None Last Documented On 4 12:37PM ; [facility] [id number] 4 % None Last Documented On 4 12:37PM ; [facility] [id number] 14 % None Last Documented On 4 12:37PM ; [facility] BETA GLOBULINS 15 % None Last Documented On 4 12:37PM ; [facility] GAMMA GLOBULINS 26 % None Last Documented On 4 12:37PM ; [facility] PROTEIN/CREATININE RATIO 0.074 mg/mg_creat (0.025-0.148) None Last Documented On 4 12:37PM ; [facility] History of Present Illness Includes: History of [...] the above, with plans to relocate to [place], scheduled to depart on the 01 of [...] 05/13/2023 Last Documented On 4 1:56PM ; [facility] Lives with spouse 05/28/2022 Last Documented On 4 1:56PM ; [facility] Outdoor activites GOLF 11/17/2019 Last Documented On 4 1:56PM ; [facility] No use of tanning lights 11/17/2019 Last Documented On 4 1:56PM ; [facility] Using sunscreen 11/17/2019 Last Documented On 4 1:56PM ; [facility] What SPF do you wear 50 11/17/2019 Last Documented On 4 1:56PM ; [facility] Retired from work 04/28/2019 Last Documented On 4 1:56PM ; [facility] 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 Last Documented On 4 1:56PM ; [facility] Sun exposure: Burn sometimes, henriquez easily 04/02/2018 Last Documented On 4 1:56PM ; [facility] Past sun exposure: Moderate 03/19/2018 Last Documented On 4 1:56PM ; [facility] Present sun exposure: Moderate 8 Last Documented On 4 1:56PM ; [facility] Alcohol use: 2 drinks or less per day Last Documented On 4 1:56PM ; [facility] Former smoker 11/19/2017 Last Documented On 4 1:56PM ; [facility] Never used drugs 11/19/2017 Last Documented On 4 1:56PM ; [facility] AUDIT-C questionnaire was 0 06/20/2017 Last Documented On 4 1:56PM ; [facility] Alcohol use 2-3 drinks nightly 7 Last Documented On 4 1:56PM ; [facility] No living will 06/07/2016 Last Documented On 4 1:56PM ; [facility] Smoking status : Former smoker Quit in 1 982 [id number] 06/07/2016 Last Documented On 4 1:56PM ; [facility] Pets in the home 06/29/2015 Last Documented On 4 1:56PM ; [facility] Alcohol Social drinker 06/29/2015 Last Documented On 4 1:56PM ; [facility] Caffeine use 1 cup daily 06/29/2015 Last Documented On 4 1:56PM ; [facility] Currently 06/29/2015 Last Documented On 4 1:56PM ; [facility] Occupation was unknown 06/29/2015 Last Documented On 4 1:56PM ; [facility] Not a current smoker 12/27/2013 Last Documented On 4 1:56PM ; [facility] Not using drugs 12/27/2013 Last Documented On 4 1:56PM ; [facility] A previous history of smoking 09/04/2012 Last Documented On 4 1:56PM ; [facility] Alcohol use 09/04/2012 Last Documented On 4 1:56PM ; [facility] Cigarette smoking for an unknown number of pack-years 08/14/2012 Last Documented On 4 1:56PM ; [facility] Not smoking 08/14/2012 Last Documented On 4 1:56PM ; [facility] Procedures and Surgical History Includes: Procedures from this encounter Procedures Code Diagnosis Performing Provider Service Location Service Date Complex e/m visit add on G2211 Primary osteoarthritis, unspecified site Gloria Morris PA-C [facility] 06/16/2023 Last Documented On 4 3:27PM ; [facility] Most recent diastolic < 80 mm Hg 3078F Overweight, Body mass index [BMI] 28.0-28.9, adult Gloria Morris PA-C [facility] 06/16/2023 Last Documented On 4 4:48AM ; [facility] Most recent systolic < 130 mm Hg 3074F Overweight, Body mass index [BMI] 28.0-28.9, adult Gloria Morris PA-C [facility] 06/16/2023 Last Documented On 4 4:50AM ; [facility] Body mass index docd 3008F Overweight, Body mass index [BMI] 28.0-28.9, adult Gloria Morris PA-C [facility] 06/16/2023 Last Documented On 4 4:51AM ; [facility] diastolic blood pressure < 80 mmHg 3078F Last Documented On 4 2:07PM ; [facility] systolic blood pressure < 130 mmHg 3074F Last Documented On 4 2:07PM ; [facility] body mass index documented 3008F Last Documented On 4 2:07PM ; [facility] Surgical History Last Updated History of heart surgery Heart ablation - 09/201506/07/2016 Last Documented On 4 1:56PM ; [facility] No history of surgery 06/29/2015 Last Documented On 4 1:56PM ; [facility] Medical History Includes: Medical History addressed during this encounter Description Last Updated History of chronic obstructive pulmonary disease 07/10/2021 Last Documented On 4 1:56PM ; [facility] History of systemic hypertension 022 Last Documented On 4 1:56PM ; [facility] Basal cell carcinoma of the skin 020 Last Documented On 4 1:56PM ; [facility] Hearing loss 11/17/2019 Last Documented On 4 1:56PM ; [facility] History of arthritis 11/17/2019 Last Documented On 4 1:56PM ; [facility] History of coronary artery disease 11/16 Last Documented On 4 1:56PM ; [facility] LT elbow calcium deposit removal - 1975 ~Lorenzo cataract removal - 201506/07/2016 Last Documented On 4 1:56PM ; [facility] Advance healthcare directive in chart Last Documented On 4 1:56PM ; [facility] 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 09/04/2012 Last Documented On 4 1:56PM ; [facility] History of chronic reflux esophagitis Last Documented On 4 1:56PM ; [facility] History of colonic diverticulosis 2012 Last Documented On 4 1:56PM ; [facility] History of hyperlipidemia 09/04/2012 Last Documented On 4 1:56PM ; [facility] Stomach problems 09/04/2012 Last Documented On 4 1:56PM ; [facility] No history of diabetes mellitus 08/15/19 Last Documented On 4 1:56PM ; [facility] No history of skin cancer 08/14/2012 Last Documented On 4 1:56PM ; [facility] Family History Includes: Family History addressed during this encounter Description Last Updated Paternal history of essential hypertensi on 05/30/2021 Last Documented On 4 1:56PM ; [facility] Paternal history of family history of is chemic heart disease 12/01/2020 Last Documented On 4 1:56PM ; [facility] Maternal history of arthritis 03/19/2018 Last Documented On 4 1:56PM ; [facility] Maternal history of stroke syndrome TIA 06/07/2016 Last Documented On 4 1:56PM ; [facility] Paternal history of paternal history CHF 06/07/2016 Last Documented On 4 1:56PM ; [facility] 1 daughter(s) living 06/07/2016 Last Documented On 4 1:56PM ; [facility] 1 son(s) living 06/07/2016 Last Documented On 4 1:56PM ; [facility] Brother(s) living x1 06/07/2016 Last Documented On 4 1:56PM ; [facility] Father at age 64 06/07/2016 Last Documented On 4 1:56PM ; [facility] Mother at age 86 06/07/2016 Last Documented On 4 1:56PM ; [facility] Sister(s) living x2 06/07/2016 Last Documented On 4 1:56PM ; [facility] Family history of allergies Self 016 Last Documented On 4 1:56PM ; [facility] Family history of cancer Mother 06/29/19 16 Last Documented On 4 1:56PM ; [facility] Family history of hearing loss Self 06/12 Last Documented On 4 1:56PM ; [facility] No family history of asthma 06/29/2015 Last Documented On 4 1:56PM ; [facility] No family history of diabetes mellitus 0 06/29/2015 Last Documented On 4 1:56PM ; [facility] No family history of migraine headache 0 06/29/2015 Last Documented On 4 1:56PM ; [facility] No family history of tuberculosis 2015 Last Documented On 4 1:56PM ; [facility] Maternal history of family history of ca ncer Breast 11/29/2013 Last Documented On 4 1:56PM ; [facility] Family history of a history of cancer Last Documented On 4 1:56PM ; [facility] Family history of arthritis 09/04/2012 Last Documented On 4 1:56PM ; [facility] Family history of cardiac problems 09/04 Last Documented On 4 1:56PM ; [facility] No family history of breast cancer 08/14 Last Documented On 4 1:56PM ; [facility] No family history of colon cancer 2012 Last Documented On 4 1:56PM ; [facility] No family history of coronary artery dis ease 08/14/2012 Last Documented On 4 1:56PM ; [facility] No family history of prostate cancer 06/2012 Last Documented On 4 1:56PM ; [facility] No family history of skin cancer 013 Last Documented On 4 1:56PM ; [facility] Review of Systems Includes: Review of Systems [...] Active Last Documented On 06/16/2023 2:04PM ; [facility] Note: facial lip swelling listaprill Allergy swollen 07/13/2020 Active Last Documented On 4 2:04PM ; [facility] Encounters Encounter Provider Location Date Check-In Time Check-Out Time Diagnosis [facility] Medicare Follow Up Visit Gloria Morris PA-C [facility] 06/16/19 24 2:15PM 2:35PM Organic [...] m Dates 1 - Medicare Part B [id number] Nick Farnsworth Oliva Self 2 - [employer]/ Unicare [id number] Nick Farnsworth Oliva Self 07/13 - Unknown Advance Directives Includes: Current Advance Directives Directive Pat Aware Third Libertarian Effective Date Reviewed [facility] Power of Want Ad Supervisor/Healthcare Surrogate Yes 08/08/2017 Current and Verified Clinical Notes Includes: Clinical Notes from this encounter * Progress note Date Encounter Last Documented by 06/16/2023 [facility] Medicare Follow Up Visit Sarah benítez documented on 06/16/2023; 3:00 PM, Gloria Morris PA-C; [facility] Active Problems & Conditions - Asthma - [...] the above, with plans to relocate to [place], scheduled to depart on the 01 of [...] Smoking status: Former smoker Quit in 1981 [id number]. Alcohol: Alcohol Social drinker and alcohol [...] atrial fibrillation - Atherosclerotic heart disease of [place] coronary artery without angina pectoris - Chronic combined systolic (congestive) and diastolic (congestive) heart failure - Essential (primary) hypertension - Atherosclerosis of aorta - Atherosclerotic heart disease of [place] coronary artery with other forms of angina [...] previous stroke and/or peripheral neuropathy from [employer] [place] exposure. - Possible orthostatic hypotension or vertigo. - Complicated case - Plan: Refer the patient to a neurologist for further evaluation, would consider possible tilt table test to assess for orthostatic hypotension. Additionally, refer the patient to [facility] for vestibular rehabilitation to address balance issues Labwork WNL - Advise patient to f/u with new PCP at the [facility] after reolcating to [facility] for further evluation - Post-traumatic stress [...] mg/dL INTERPRETATION SEE NOTE ALBUMIN 41 % [id number] 4 % [id number]-8-[id number] 14 % BETA GLOBULINS 15 % GAMMA [...] mmHg. Advance Directives - Healthcare Power of Want Ad Supervisor/Healthcare Surrogate Care Team - Narendra Campos MD - Family Practice - Smiley Garcia, ADDICTION SOCIAL WORKER - Nurse Practitioner - Dane Rasmussen MD - [facility] Surgery - Maryan Landeros MD - Surgery - [facility] DO - Pulmonary Disease - Bora Gar MD - Vascular Surgery - Sylvester Morgan MD - Neurology - Gloria Morris PA-C - Physician Benefits Coordinator - Colton Guardado MD - Cardiology - Martinez Kohler MD - Gastroenterology - [facility] - Hematology & Oncology - Deni Bernabe MD - Orthopaedic Surgery of the Spine - Merle Villanueva MD - Pulmonary Disease - Christ Moulton III MD - Orthopaedic Surgery
--- OUTSIDE RECORDS SUMMARY | 2024-05-20 21:29 | XMS_ITS | Encounter Summary ---
Author Name [facility] [place] [facility] [place] [facility] Address [address] [place] [address] Care Team Providers Care Teamcenter Solution Architect Name Role Phone ERNESTO ARBOLEDA Primary Care [...] PART A August 12, 2008 PART A [id number] [phone] Dawson YOUNGER PATIENT MEDICARE (WNR) MEDICARE (M) PART B August 12, 2008 PART B [id number] [phone] Dawson YOUNGER PATIENT MEDICARE (WNR) MEDICARE (M) PART A August 12, 2008 PART A [id number] Dawson YOUNGER PATIENT MEDICARE (WNR) MEDICARE (M) PART B August 12, 2008 PART B [id number] Dawson YOUNGER PATIENT MEDICARE (WNR) MEDICARE (M) PART B August 12, 2008 PART B [id number] Dawson YOUNGER PATIENT MEDICARE (WNR) MEDICARE (M) PART A August 12, 2008 PART A [id number] Dawson YOUNGER PATIENT MEDICARE (WNR) MEDICARE (M) PART B August 12, 2008 PART B [id number] [phone] Dawson YOUNGER PATIENT MEDICARE (WNR) MEDICARE (M) PART A August 12, 2008 PART A [id number] Dawson YOUNGER PATIENT MEDICARE (WNR) MEDICARE (M) PART A August 12, 2008 PART A [id number] Dawson YOUNGER PATIENT MEDICARE (WNR) MEDICARE (M) PART B August 12, 2008 PART B [id number] Dawson YOUNGER PATIENT MEDICARE PART D (WNR) PRESCRIPT ION PART D Apr 14, 2015 PART D [id number] Dawson YOUNGER PATIENT UNICARE PREFERRED PROVIDER ORGANIZAT ION (PPO) [facility] IN[facility] N August 12, 2008 [id number] [phone] Dawson YOUNGER PATIENT UNICARE MEDICARE [facility]PPLEMEN [facility] N August 12, 2008 [id number] Dawson YOUNGER PATIENT UNICARE-G. I.C. MEDICAL EXPENSE (OPT/PROF ) [facility] N August 12, 2008 [id number] Dawson YOUNGER PATIENT Selected Encounter This section includes the information on [place] at [place] for the Encounter. Date/Time Encounter Type Encounter Description Reason Pro vider Source Apr 22, 2024 12:00 AM Outpatient Encounter COMMUNITY CARE CONSULT IHE Encounter Template Text not used by [facility] Plan of Treatment: Future Appointments (+ 6 months) and Future Tests (+/- 45 days) The Plan of Treatment section includes future care activities for the patient [facility] all [place] [facility]. This section includes future appointments [...] AMBULATORY [place] [facility] [place] [facility] Apr 28, 2024 01:01 PM AMBULATORY [place]AT[place] [facility] [place] [facility] May 11, 2024 01:30 PM AMBULATORY - REHAB MEDICIN [facility] [place] [facility] May 26, 2024 01:30 PM AMBULATORY - MEDICINE [facility] May 26, 2024 03:00 PM AMBULATORY [place]ATRY [place] [facility] [place] [facility] May 26, 2024 03:01 PM AMBULATORY [place]AT[place] [facility] [place] [facility] Jun 22, 2024 01:00 PM AMBULATORY - MEDICINE [place] Jun 22, 2024 03:00 PM AMBULATORY - NONE [place] [facility] [place] [facility] Sep 14, 2024 02:30 PM [facility] [place] [facility] [place] [facility] Social History: Smoking Status (Most current) and [...] 06, 2023 01:17 PM [facility]ACCO [facility] Advance Directives: All historical and current Section [...] August 25, 2023 ADVANCE DIRECTIVE [facility] Encounter Notes: All associated encounter notes This section contains the clinical notes associated to the Encounter. Date/Time Encounter Note(s) Provider Source Apr 22, 2024 12:00 AM NONVA CONSULT: LOCAL TITLE: COMMUNITY CARE-CONSULT RESULT NOTE STANDARD TITLE: NONVA CONSULT DATE OF NOTE: APR 22, 2024 ENTRY DATE: MAY 17, 2024@12:25:01 AUTHOR: STEPHANY GUEVARA EXP COSIGNER: URGENCY: STATUS: COMPLETED VistA Imaging - Scanned Document SCANNED DOCUMENT SIGNATURE NOT REQUIRED Electronically Filed: 05/17/2024 by: STEPHANY MILLAN [facility]
--- OUTSIDE RECORDS SUMMARY | 2024-05-20 21:30 | XMS_ITS | Continuity of Care Document ---
Author Name [facility] Organization [facility] Care Team Providers Care Java Grails Developer Name Role Phone [facility] Unavailable Unavailable Problems Combined list of problems from Department of Defense and Veterans Affairs facilities. It does not include entries that were removed or entered in error. Problem Status Onset Date Problem Type Date of Resolution Comments Source Bilateral hearing loss Active Condition [facility] CAD - Coronary Artery Disease (SCT 58474506) Active Condition [facility] Chronic hypoxemic respiratory failure Active Condition [facility] obstructive lung disease [facility] CKD stage 3 Active Condition [facility] Cognitive decline Active Condition [facility] COPD - Chronic obstructive pulmonary disease Active Condition Aug 08, 2023 Entered By: TYLER ARBOLEDA A Comment: 2 L O2 dependent 04/11 [facility] Dementia Active Condition [facility] Depressive disorder (SNOMED CT 63878410) Active Condition [facility] Essential tremor Active Condition [facility] FAYE - Generalised anxiety disorder Active Condition [facility] GERD - Gastro-Esophageal Reflux Disease (SCT 933622543) Active Condition [facility] Glaucoma Active Condition [facility] Hearing Loss, Bilateral Active [facility] History of male erectile disorder Active Condition [facility] Hyperlipidemia [facility] Hypertriglyceridaemia Active Condition [facility] Insomnia Active Condition [facility] Long-term current use of anticoagulant Active Condition [facility] Buna's granuloma Active Condition [facility] Obstructive sleep apnea Active Condition [facility] Obstructive sleep apnea syndrome Active Condition Feb 14, 2017 Entered By: JULIANA MAST Comment: Autopap [id number] p 2018 Entered By: JAVI YOUNG Comment: NASAL PILLOWS [facility] PAF - Paroxysmal atrial fibrillation Active Condition Aug 08, 2023 Entered By: TYLER ARBOLEDA Comment: s/p ablation x2 [facility] PAF - Paroxysmal atrial fibrillation Active [facility] Paroxysmal atrial fibrillation Active Condition Jan 25, 2016 Entered By: JEFFERSON MORROW Comment: ablation - 10/2015 [facility] Posttraumatic stress disorder, delayed onset (SNOMED CT 856571173) Active Condition [facility] PTSD - Post-traumatic stress disorder Active Condition [facility] TIA - transient ischemic attack Active Condition [facility] Asthma, unspecified Inactive Condition 08/09/2019 [facility] Cold sore Inactive Condition 01/25/2016 [facility] Dizziness Inactive Condition 08/11/2018 [facility] Glaucoma suspect Inactive Condition 07/04/[address] [place] [address] Glaucoma, Suspect (ICD-9-CM 365.00) Inactive Condition 06/23/2015 [facility] Hyperlipidemia Inactive Condition 08/09/2019 [facility] PSEUDOEXFOLIAT GLAUCOMA Inactive Condition 06/23/2015 [facility] Diagnosis: ICD-10-CM Z46.1 Encounter for fitting and adjustment of hearing aid Active Diagnosis [facility] Diagnosis: ICD-10-CM F43.10 Post-traumatic stress disorder, unspecified Active Diagnosis [facility] Diagnosis: ICD-10-CM Z79.01 alf (current) use of anticoagulants Active Diagnosis [facility] Diagnosis: ICD-10-CM F03.B4 Unspecified dementia, moderate, with anxiety Active Diagnosis [facility] Diagnosis: ICD-10-CM 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, right eye, mild stage Active Diagnosis [facility] Diagnosis: ICD-10-CM H40.1421 Capslr glaucoma w/pseudxf lens, left eye, mild stage Active Diagnosis [facility] [place] [facility] Diagnosis: ICD-10-CM R41.3 Other amnesia Active Diagnosis [facility] [place] [facility] Diagnosis: ICD-10-CM H40.1412 Capslr glaucoma w/pseudxf lens, right eye, moderate stage Active Diagnosis [facility] [place] [facility] Diagnosis: ICD-10-CM J96.11 Chronic respiratory failure with hypoxia Active Diagnosis [facility] Diagnosis: ICD-10-CM K03.6 Deposits [accretions] on teeth Active Diagnosis [facility] [place] [place] [facility] Diagnosis: ICD-10-CM I48.20 Chronic atrial fibrillation, unspecified Active Diagnosis [facility] Diagnosis: ICD-10-CM F43.12 Post-traumatic stress disorder, chronic Active Diagnosis [facility] Diagnosis: ICD-10-CM K08.531 Fractured dental restorative material with loss of material Active Diagnosis [facility] [place] [place] [facility] Diagnosis: ICD-10-CM L92.0 Granuloma annulare Active Diagnosis [facility] Diagnosis: ICD-10-CM Z13.89 Encounter for screening for other disorder Active Diagnosis [facility] Diagnosis: ICD-10-CM I48.0 Paroxysmal atrial fibrillation Active Diagnosis [facility] Diagnosis: ICD-10-CM Z71.89 Other specified counseling Active Diagnosis [facility] Diagnosis: ICD-10-CM Z13.6 Encounter for screening for cardiovascular disorders Active Diagnosis [facility] Diagnosis: ICD-10-CM J44.9 Chronic obstructive pulmonary disease, unspecified Active Diagnosis [facility] Diagnosis: ICD-10-CM R68.89 Other general symptoms and signs Active Diagnosis [facility] Diagnosis: ICD-10-CM L30.8 Other specified dermatitis Active Diagnosis [facility] Diagnosis: ICD-10-CM Z23 Encounter for immunization Active Diagnosis 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, high risk, bilateral Active Diagnosis [address] [place] [address] Medications Combined list of outpatient medications from [...] PASM RESPIR ATORY (INHAL ATION) ACTIVE 08/07/2024 [id number] Connor ARBOLEDA AVID A 2023 2 [place] ATORVASTATI N CA 80MG TAB TAKE ONE-HALF TABLET BY MOUTH EVERY DAY FOR CHOLESTE ROL ORAL ACTIVE 06/30/2024 [id number] 4 Narendra MORROW ISHORE 2023 45 [facility] ATORVASTATI N CA 80MG TAB TAKE ONE TABLET BY MOUTH ONCE DAILY FOR HIGH CHOLESTE ROL ORAL DISCONT INUED BY PROVIDE R 08/08/2024 [id number] Connor ARBOLEDA AVID A 2023 90 [place] ATORVASTATI N CA 80MG TAB TAKE ONE-HALF TABLET BY MOUTH EVERY DAY FOR CHOLESTE ROL ORAL DISCONT INUED 07/05/2023 [id number] 4 Narendra MORROW ISHORE 2022 45 [facility] BRIMONIDINE TARTRATE 0.2% SOLN,OPH INSTILL 1 DROP INTO THE RIGHT EYE TWICE DAILY FOR GLAUCOMA OPHTHA LMIC ACTIVE 01/01/2025 [id number] 4 JOSE GREENE 2023 10 [facility] BRIMONIDINE TARTRATE 0.2% SOLN,OPH INSTILL 1 DROP INTO RIGHT EYE EVERY MORNING FOR GLAUCOMA OPHTHA LMIC DISCONT INUED 09/27/2023 [id number] PEGGY ANDERSON SA [address] [place] [address] BRIMONIDINE TARTRATE 0.2% SOLN,OPH INSTILL 1 DROP INTO THE RIGHT EYE EVERY MORNING FOR INCREASE D PRESSURE IN THE EYE FOR GLAUCOMA OPHTHA LMIC DISCONT INUED (EDIT) 11/14/2024 [id number] 4 JOSE GREENE 2023 10 [facility] BRIMONIDINE TARTRATE 0.2% SOLN,OPH INSTILL 1 DROP INTO RIGHT EYE EVERY MORNING FOR GLAUCOMA OPHTHA LMIC 03/28/2024 [id number] 4 MONICAPEGGY Pineda [address] [place] [address] CARBOXYMETH YLCELLULOSE NA 0.5% SOLN,OPH INSTILL 1 DROP INTO EACH EYE FOUR TIMES A DAY FOR DRY EYE OPHTHA LMIC ACTIVE 11/14/2024 [id number] JOSE GREENE 2023 15 [facility] DABIGATRAN ETEXILATE 150MG CAP,ORAL TAKE ONE CAPSULE BY MOUTH TWICE DAILY TO PREVENT BLOOD CLOTS (ONCE OPENED, THE MEDICATI ON MUST BE USED WITHIN 4 MONTHS) ORAL ACTIVE 08/13/2024 [id number] Connor ARBOLEDAD A 2023 180 [place] DABIGATRAN ETEXILATE 150MG CAP,ORAL TAKE ONE CAPSULE BY MOUTH TWICE A DAY TAKE WITH A FULL GLASS OF WATER,TO PREVENT BLOOD CLOTS ORAL DISCONT INUED BY PROVIDE R 08/20/2023 [id number] 4 IAN AYALA 2022 180 PAT[facility] Iyer [facility] DILTIAZEM (EQV-CARDIZ EM AB3) 240MG 24HR CAP TAKE ONE CAPSULE BY MOUTH ONCE DAILY FOR ATRIAL FIBRILLA TION ORAL ACTIVE 08/07/2024 [id number] Connor ARBOLEDAD A 2023 90 [place] DOXYCYCLINE HYCLATE 100MG TAB TAKE ONE TABLET BY MOUTH TWICE DAILY UPPER RESPIRAT ORY INFECTIO N ORAL 11/29/2023 [id number] Connor ARBOLEDAD A 2023 14 [place] EZETIMIBE 10MG TAB TAKE ONE TABLET BY MOUTH ONCE DAILY TO LOWER CHOLESTE ROL ORAL ACTIVE 08/07/2024 [id number] 4 Connor ARBOLEDA AVID A 2023 90 [place] FENOFIBRATE 48MG TAB TAKE ONE TABLET BY MOUTH ONCE DAILY FOR HIGH CHOLESTE ROL ORAL ACTIVE 02/26/2025 [id number] Connor ARBOLEDA AVID A 2023 90 [place] FUROSEMIDE 20MG TAB TAKE ONE TABLET BY MOUTH ONCE DAILY NEEDED FOR VISIBLE WATER RETENTIO N TO REMOVE FLUID/CO NTROL BLOOD PRESSURE ORAL ACTIVE 08/08/2024 [id number] 4 Connor ARBOLEDA AVID A 2023 90 [place] FUROSEMIDE 20MG TAB TAKE ONE TABLET BY MOUTH EVERY MORNING ORAL ACTIVE Narendra MORROWORE 2019 [facility] KETOCONAZOL E 2% SHAMPOO USE SMALL AMOUNT ON SCALP FRI,FRI AND FRIDAY SEBORRHE IC DERMATIT IS LATHER, APPLY TO SCALP, LEAVE ON FOR 5 MINUTES, THEN WASH OFF. DO THIS THREE TIMES PER WEEK. LATHER, APPLY TO SCALP, LEAVE ON FOR 5 MINUTES, THEN WASH OFF. DO THIS THREE TIMES PER WEEK. TOPICA L 03/31/2024 [id number] 4 Javad MERRITT [place] 2022 120 [facility] LATANOPROST 0.005% SOLN,OPH INSTILL 1 DROP INTO EACH EYE AT BEDTIME FOR INCREASE D PRESSURE IN THE EYE OPHTHA LMIC ACTIVE 11/14/2024 [id number] 4 JOSE GREENE 2023 7.5 [facility] LATANOPROST 0.005% SOLN,OPH INSTILL 1 DROP INTO BOTH EYES AT BEDTIME FOR GLAUCOMA OPHTHA LMIC 09/27/2023 [id number] 4 PEGGY ANDERSON SA S [address] [place] [address] METOPROLOL SUCCINATE 50MG TAB,SA TAKE ONE TABLET BY MOUTH ONCE DAILY FOR BLOOD PRESSURE /HEART ORAL ACTIVE 08/08/2024 [id number] Connor ARBOLEDAD A 2023 90 [place] METOPROLOL TARTRATE 50MG TAB TAKE ONE-HALF TABLET BY MOUTH TWICE A DAY FOR HEART AND BLOOD PRESSURE ORAL ACTIVE 06/30/2024 [id number] 4 Narendra MORROWORE 2023 90 [facility] METOPROLOL TARTRATE 50MG TAB TAKE ONE-HALF TABLET BY MOUTH TWICE A DAY FOR HEART AND BLOOD PRESSURE ORAL DISCONT INUED 07/05/2023 [id number] 4 Narendra MORROWORE 2022 90 [facility] OMEPRAZOLE 20MG CAP,EC TAKE ONE CAPSULE BY MOUTH EVERY MORNING 30 MINUTES BEFORE BREAKFAS T FOR GASTROES OPHAGEAL REFLUX DISEASE ORAL ACTIVE 08/08/2024 [id number] Connor ARBOLEDA AVID A 2023 90 [place] OMEPRAZOLE 20MG CAP,EC TAKE ONE CAPSULE BY MOUTH EVERY DAY FOR STOMACH ORAL ACTIVE 06/30/2024 [id number] 4 Narendra MORROW ISHORE 2023 90 [facility] OMEPRAZOLE 20MG CAP,EC TAKE ONE CAPSULE BY MOUTH EVERY DAY FOR STOMACH ORAL DISCONT INUED 07/05/2023 [id number] 4 Narendra MORROW 2022 90 [facility] PRAZOSIN HCL 2MG CAP TAKE TWO CAPSULES BY MOUTH AT BEDTIME FOR NIGHTMAR ES ORAL 03/29/2023 [id number] 3 Shaila EDWARD N 2022 180 [facility] PRIMIDONE 50MG TAB TAKE ONE TABLET BY MOUTH ONCE DAILY FOR SIMPLE SEIZURE ORAL ACTIVE 08/08/2024 [id number] Connor ARBOLEDAD A 2023 90 [facility] IELD PRIMIDONE 50MG TAB TAKE ONE TABLET BY MOUTH THREE TIMES A DAY FOR TREMORS ORAL ACTIVE 06/30/2024 [id number] 4 Narendra MORROW 2023 270 [facility] PRIMIDONE 50MG TAB TAKE ONE TABLET BY MOUTH THREE TIMES A DAY FOR TREMORS ORAL DISCONT INUED 07/05/2023 [id number] 4 Narendra MORROW 2022 270 [facility] QUETIAPINE FUMARATE 100MG TAB TAKE ONE TABLET BY MOUTH AT BEDTIME FOR MOOD AND PTSD ORAL ACTIVE 04/29/2025 [id number] Edwin HERNANDEZ G 2024 30 [place] QUETIAPINE FUMARATE 100MG TAB TAKE ONE TABLET BY MOUTH AT BEDTIME FOR ANXIETY ORAL 11/29/2023 [id number] Connor ARBOLEDA A 2023 30 [place] QUETIAPINE FUMARATE 200MG TAB TAKE ONE-HALF TABLET BY MOUTH AT BEDTIME FOR ANXIETY ORAL 04/23/2024 [id number] 4 Shaila EDWARD N 2023 15 [facility] QUETIAPINE FUMARATE 50MG TAB TAKE ONE-HALF TABLET BY MOUTH AT BEDTIME FOR ANXIETY ORAL DISCONT INUED (EDIT) 03/25/2024 [id number] 4 Shaila EDWARD N 2022 15 [facility] SERTRALINE HCL 100MG TAB TAKE ONE TABLET BY MOUTH ONCE DAILY FOR POSTTRAU MATIC STRESS SYNDROME ORAL ACTIVE 08/08/2024 [id number] Connor ARBOLEDA A 2023 90 [place] SERTRALINE HCL 100MG TAB TAKE TWO TABLETS BY MOUTH EVERY DAY FOR DEPRESSI ON ORAL 03/29/2023 [id number] Shaila EDWARD N 2022 180 [facility] TEMAZEPAM 7.5MG CAP TAKE ONE CAPSULE BY MOUTH AT BEDTIME NEEDED FOR SLEEP ORAL DISCONT INUED 03/27/2023 [id number] 3 Shaila EDWARD N 2022 30 [facility] TRAZODONE HCL 100MG TAB TAKE TWO TABLETS BY MOUTH AT BEDTIME FOR INSOMNIA ASSOCIAT ED WITH DEPRESSI ON ORAL DISCONT INUED BY PROVIDE R 01/21/2025 [id number] Edwin HERNANDEZ G 2023 180 [place] TRAZODONE HCL 100MG TAB TAKE 1/2 - 1 TABLET BY MOUTH AT BEDTIME NEEDED FOR INSOMNIA ASSOCIAT ED WITH DEPRESSI ON ORAL DISCONT INUED (EDIT) 11/13/2024 [id number] 4 Edwin HERNANDEZ 2023 30 [place] JANAU M/JULIÁN L INHALER INHL,ORAL USE BY INHALATI ON EVERY DAY RESPIR ATORY (INHAL ATION) ACTIVE GISELLEYANarendra SINGH ISHORE 2019 [facility] Allergies, Adverse Reactions, Alerts Combined list of allergies from Department of Defense and Veterans Affairs facilities. It does not include entries that were removed or entered in error. Substance Category Reaction Severity Reaction type Status Date Reported Comments Source ATORVASTATIN Propensity to adverse reactions to drug (finding) Muscle pain MODERATE active 4 [facility] LISINOPRIL Propensity to adverse reactions to drug (finding) Angioedema active 0 [facility] LISINOPRIL Propensity to adverse reactions to drug (finding) Swelling active 4 [facility] Immunizations Combined list of available immunizations from the Department of Defense and Veterans Affairs facilities. Immunization Series Date Given Administered By Site Reaction Lot Number CVX Code Drug Incoming Freight Clerk Status Comments Source COVID-19 (MODERNA), MRNA, LNP-S, PF, 50 MCG/0.5 ML (AGES 12+ YEARS) 2023 EMELY BRUNO RIGHT DELTO ID [id number] 312 complet ed [facility] INFLUENZA, HIGH-DOSE, TRIVALENT, PF 2023 EMELY BRUNO R LEFT DELTO ID [id number] 135 complet ed [facility] INFLUENZA, INJECTABLE, QUADRIVALENT, PRESERVATIVE FREE 2022 JIMMY FOOTE RIGHT DELTO ID [id number] 150 complet ed [facility] RSV, BIVALENT, PROTEIN SUBUNIT RSVPREF, DILUENT RECONSTITUTED , 0.5 ML, PF 2022 JIMMY FOOTE LEFT DELTO ID [id number] 305 complet ed diluent lot#[id number] exp: 06/08 [facility] INFLUENZA, UNSPECIFIED FORMULATION 2022 88 complet ed [facility] INFLUENZA, SEASONAL, INJECTABLE 2021 141 complet ed [facility] INFLUENZA VACCINE, QUADRIVALENT, ADJUVANTED 1 2021 205 complet ed [facility] COVID-19 (MODERNA), MRNA, LNP-S, PF, 100 MCG OR 50 MCG DOSE 3 2020 207 complet ed MOD; [id number]; [facility] ([facility]NA), MRNA, LNP-S, PF, 100 MCG/0.5ML DOSE OR 50 MCG/0.25ML DOSE 3 2020 207 complet ed [facility] INFLUENZA, RECOMBINANT, QUADRIVALENT, INJECTABLE, PRESERVATIVE FREE 1 2020 185 complet ed [facility] ZOSTER RECOMBINANT 2 2020 187 complet ed [facility] ZOSTER RECOMBINANT 1 2020 187 complet ed [facility] COVID-19 (MODERNA), MRNA, LNP-S, PF, 100 MCG/0.5 ML DOSE 2 2020 207 complet ed [facility] COVID-19 (MODERNA), MRNA, LNP-S, PF, 100 MCG/0.5 ML DOSE 1 2020 207 complet ed [facility] COVID-19 (MODERNA), MRNA, LNP-S, PF, 100 MCG/0.5ML DOSE OR 50 MCG/0.25ML DOSE 1 2020 207 complet ed [facility] INFLUENZA, UNSPECIFIED FORMULATION 2019 88 complet ed [facility] INFLUENZA, SEASONAL, INJECTABLE 2019 141 complet ed [facility] INFLUENZA, INJECTABLE, QUADRIVALENT, PRESERVATIVE FREE 1 2019 150 complet ed [facility] INFLUENZA, UNSPECIFIED FORMULATION 2018 88 complet ed [facility] INFLUENZA, UNSPECIFIED FORMULATION 2017 88 complet ed [facility] INFLUENZA, SEASONAL, INJECTABLE 2016 141 complet ed [employer] [facility] TDAP 1 2016 115 complet ed [facility] INFLUENZA, UNSPECIFIED FORMULATION 2015 88 complet ed [employer] [facility] INFLUENZA, HIGH DOSE SEASONAL 1 2015 135 complet ed [facility] INFLUENZA, UNSPECIFIED FORMULATION 2014 88 complet ed BIO [employer] [facility] ZOSTER LIVE 2014 121 complet ed [facility] TDAP 2014 115 complet ed [facility] INFLUENZA, UNSPECIFIED FORMULATION 2014 88 complet ed [facility] PNEUMOCOCCAL CONJUGATE PCV 13 1 2014 133 complet ed [facility] INFLUENZA, UNSPECIFIED FORMULATION 2012 88 complet ed [employer] [facility] INFLUENZA, UNSPECIFIED FORMULATION 2011 88 complet ed [facility] INFLUENZA, UNSPECIFIED FORMULATION 2009 88 complet ed [facility] INFLUENZA, UNSPECIFIED FORMULATION 2008 88 complet ed [facility] PNEUMOCOCCAL, UNSPECIFIED FORMULATION 2008 109 complet ed [facility] PNEUMOCOCCAL POLYSACCHARID E PPV23 2008 33 complet ed [facility] TD(ADULT) UNSPECIFIED FORMULATION 2008 139 complet ed per patient [facility] INFLUENZA, UNSPECIFIED FORMULATION 2007 88 complet ed [facility] Results Combined list of recent chemistry, hematology and other laboratory results from Department of Defense and Veterans Affairs, ranging from 15 months to all on record, depending upon the facility. Order Name Results Value Reference Range Date Interpretation Specimen Comments Source MICROALB UMIN CREATINI NE RATIO PANEL MICROALBUM IN/CREATIN INE [MASS RATIO] IN URINE cancmg/g 0 - 29.9 11/06 Specimen Type: URINE No comment entered. Ordering Provider: TYLER ARBOLEDA Report Released Date/Time: August 17, 2023 01:25 PM Reporting Lab: [place] [facility] [place] [address] [address] Performing Lab: [facility] [address] [address] [place] MICROALB UMIN CREATINI NE RATIO PANEL MICROALBUM IN [MASS/VOLU ME] IN URINE < 0.5mg/dL 11/06 Specimen Type: URINE No comment entered. Ordering Provider: TYLER ARBOLEDA A Report Released Date/Time: August 17, 2023 01:25 PM Reporting Lab: [facility] [address] [address] Performing Lab: [address] [address] [place] MICROALB UMIN CREATINI NE RATIO PANEL CREATININE [MASS/VOLU ME] IN URINE 128.85 mg/dL 11/06 Specimen Type: URINE No comment entered. Ordering Provider: TYLER ARBOLEDA A Report Released Date/Time: August 17, 2023 01:25 PM Reporting Lab: [address] [address] Performing Lab: [address] [address] [place] URINALYS IS COLOR OF URINE Yellow 11/06 Specimen Type: URINE Comment: If Glucose = >500 and Ketones are positive, please alert the Physician. Ordering Provider: TYLER ARBOLEDA A Report Released Date/Time: August 17, 2023 01:25 PM Reporting Lab: [address] [address] Performing Lab: [address] [address] [place] URINALYS IS APPEARANCE OF URINE Turbid 11/06 Specimen Type: URINE Comment: If Glucose = >500 and Ketones are positive, please alert the Physician. Ordering Provider: TYLER ARBOLEDA A Report Released Date/Time: August 17, 2023 01:25 PM Reporting Lab: [address] [address] Performing Lab: [address] [address] [place] URINALYS IS GLUCOSE [MASS/VOLU ME] IN URINE NEGATIVE mg/dL 11/06 Specimen Type: URINE Comment: If Glucose = >500 and Ketones are positive, please alert the Physician. Ordering Provider: TYLER ARBOLEDA A Report Released Date/Time: August 17, 2023 01:25 PM Reporting Lab: [facility] [address] [address] Performing Lab[facility] [address] [address] [place] URINALYS IS KETONES [MASS/VOLU ME] IN URINE BY TEST STRIP NEGATIVE mg/dL 11/06 Specimen Type: URINE Comment: If Glucose = >500 and Ketones are positive, please alert the Physician. Ordering Provider: TYLER ARBOLEDA A Report Released Date/Time: August 17, 2023 01:25 PM Reporting Lab: [facility] [address] [address] Performing Lab: [facility] [address] [address] [place] URINALYS IS ERYTHROCYT ES [PRESENCE] IN URINE SEDIMENT BY LIGHT MICROSCOPY NEGATIVE mg/dL 11/06 Specimen Type: URINE Comment: If Glucose = >500 and Ketones are positive, please alert the Physician. Ordering Provider: TYLER ARBOLEDA A Report Released Date/Time: August 17, 2023 01:25 PM Reporting Lab: [facility] [address] [address] Performing Lab: [facility] [address] [address] [place] URINALYS IS PROTEIN [MASS/VOLU ME] IN URINE BY TEST STRIP NEGATIVE mg/dL 11/06 Specimen Type: URINE Comment: If Glucose = >500 and Ketones are positive, please alert the Physician. Ordering Provider: TYLER ARBOLEDA A Report Released Date/Time: August 17, 2023 01:25 PM Reporting Lab: [facility] [place] [address] [address] Performing Lab: [facility] [address] [address] [place] URINALYS IS NITRITE [PRESENCE] IN URINE NEGATIVE mg/dL 11/06 Specimen Type: URINE Comment: If Glucose = >500 and Ketones are positive, please alert the Physician. Ordering Provider: TYLER ARBOLEDA A Report Released Date/Time: August 17, 2023 01:25 PM Reporting Lab: [address] [address] Performing Lab: [address] [address] [place]IN[place] IS BILIRUBIN. TOTAL [PRESENCE] IN URINE NEGATIVE mg/dL 11/06 Specimen Type: URINE Comment: If Glucose = >500 and Ketones are positive, please alert the Physician. Ordering Provider: TYLER ARBOLEDA A Report Released Date/Time: August 17, 2023 01:25 PM Reporting Lab: [address] [address] Performing Lab: [address] [address] [place] URINALYS IS SPECIFIC GRAVITY OF URINE BY REFRACTOME TRY 1.024 1.016 - 1.022 11/06 H Specimen Type: URINE Comment: If Glucose = >500 and Ketones are positive, please alert the Physician. Ordering Provider: TYLER ARBOLEDA A Report Released Date/Time: August 17, 2023 01:25 PM Reporting Lab: [address] [address] Performing Lab: [address] [address] [place] URINALYS IS PH OF URINE BY TEST STRIP 6.0 5.0 - 9.0 11/06 Specimen Type: URINE Comment: If Glucose = >500 and Ketones are positive, please alert the Physician. Ordering Provider: TYLER ARBOLEDA A Report Released Date/Time: August 17, 2023 01:25 PM Reporting Lab: [address] [address] Performing Lab: [address] [address] [place]INALYS IS UROBILINOG EN [MASS/VOLU ME] IN URINE BY TEST STRIP <2.0mg/d L <2.0 - 2.0 11/06 Specimen Type: URINE Comment: If Glucose = >500 and Ketones are positive, please alert the Physician. Ordering Provider: TYLER ARBOLEDA A Report Released Date/Time: August 17, 2023 01:25 PM Reporting [facility]: [facility] [place] [address] [address] Performing Lab: [facility] [address] [place] URINALYS IS LEUKOCYTE ESTERASE [PRESENCE] IN URINE BY TEST STRIP NEGATIVE 11/06 Specimen Type: URINE Comment: If Glucose = >500 and Ketones are positive, please alert the Physician. Ordering Provider: TYLER ARBOLEDA A Report Released Date/Time: August 17, 2023 01:25 PM Reporting Lab: [facility] [place] [address] [address] Performing Lab: [facility] [address] [place] LIVER FUNCTION PROTEIN [MASS/VOLU ME] IN SERUM OR PLASMA 6.4 g/dL 6.0 - 8.3 11/06 Specimen Type: SERUM No comment entered. Ordering Provider: TYLER ARBOLEDA A Report Released Date/Time: August 17, 2023 01:25 PM Reporting Lab: [facility] [place] [address] [address] Performing Lab: [facility] [address] [address] [place] LIVER FUNCTION ALBUMIN [MASS/VOLU ME] IN SERUM OR PLASMA 3.3 g/dL 3.5 - 5.0 11/06 L Specimen Type: SERUM No comment entered. Ordering Provider: TYLER ARBOLEDA A Report Released Date/Time: August 17, 2023 01:25 PM Reporting Lab: [facility] [place] [address] [address] Performing Lab: [facility] [address] [address] [place] LIVER FUNCTION ALKALINE PHOSPHATAS E [ENZYMATIC ACTIVITY/V OLUME] IN SERUM OR PLASMA 88 U/L 40 - 150 11/06 Specimen Type: SERUM No comment entered. Ordering Provider: TYLER ARBOLEDA A Report Released Date/Time: August 17, 2023 01:25 PM Reporting Lab: [facility] [place] [address] Performing Lab: [facility] [address] [facility] LIVER FUNCTION ASPARTATE AMINOTRANS FERASE [ENZYMATIC ACTIVITY/V OLUME] IN SERUM OR PLASMA 16 U/L 5 - 34 11/06 Specimen Type: SERUM No comment entered. Ordering Provider: TYLER ARBOLEDA A Report Released Date/Time: August 17, 2023 01:25 PM Reporting Lab: [facility] [address] Performing Lab: [facility] [address] [facility] LIVER FUNCTION ALANINE AMINOTRANS FERASE [ENZYMATIC ACTIVITY/V OLUME] IN SERUM OR PLASMA 24 U/L 11/06 Specimen Type: SERUM No comment entered. Ordering Provider: TYLER ARBOLEDA A Report Released Date/Time: August 17, 2023 01:25 PM Reporting Lab: [facility] [address] Performing Lab: [facility] [address] [facility] LIVER FUNCTION BILIRUBIN. TOTAL [MASS/VOLU ME] IN SERUM OR PLASMA 0.4 mg/dL 0.2 - 1.2 11/06 Specimen Type: SERUM No comment entered. Ordering Provider: TYLER ARBOLEDA A Report Released Date/Time: August 17, 2023 01:25 PM Reporting Lab: [facility] CAM[facility]N [address] [address] Performing Lab: [facility] [address] [facility] [address] [place] LIPID PANEL, NON FASTING CHOLESTERO L [MASS/VOLU ME] IN SERUM OR PLASMA 134 mg/dL 11/06 Specimen Type: SERUM No comment entered. Ordering Provider: TYLER ARBOLEDA A Report Released Date/Time: August 17, 2023 01:25 PM Reporting Lab: [address] [address] Performing Lab: [address] [address] [place] LIPID PANEL, NON FASTING TRIGLYCERI DE [MASS/VOLU ME] IN SERUM OR PLASMA 235 mg/dL 0 - 150 11/06 H Specimen Type: SERUM No comment entered. Ordering Provider: TYLER ARBOLEDA A Report Released Date/Time: August 17, 2023 01:25 PM Reporting Lab: [address] [address] Performing Lab: [address] [address] [place] LIPID PANEL, NON FASTING CHOLESTERO L IN LDL [MASS/VOLU ME] IN SERUM OR PLASMA BY CALCALLIE N 41 mg/dL 0 - 129 11/06 Specimen Type: SERUM No comment entered. Ordering Provider: TYLER ARBOLEDA A Report Released Date/Time: August 17, 2023 01:25 PM Reporting Lab: [address] [address] Performing Lab: [address] [address] [place] LIPID PANEL, NON FASTING CHOLESTERO L.TOTAL/CH OLESTEROL IN HDL [MASS RATIO] IN SERUM OR PLASMA 2.9 11/06 Specimen Type: SERUM No comment entered. Ordering Provider: TYLER ARBOLEDA A Report Released Date/Time: August 17, 2023 01:25 PM Reporting Lab: [address] [address] Performing Lab: [facility] [address] [facility] [address] [place] LIPID PANEL, NON FASTING CHOLESTERO L IN HDL [MASS/VOLU ME] IN SERUM OR PLASMA 46 mg/dL 40 - 60 11/06 Specimen Type: SERUM No comment entered. Ordering Provider: TYLER ARBOLEDA A Report Released Date/Time: August 17, 2023 01:25 PM Reporting Lab: [facility] [address] [facility] [address] Performing Lab: [address] [address] [place] CALCIUM CALCIUM [MASS/VOLU ME] IN SERUM OR PLASMA 8.8 mg/dL 8.5 - 10.2 11/06 Specimen Type: SERUM No comment entered. Ordering Provider: TYLER ARBOLEDA A Report Released Date/Time: August 17, 2023 01:25 PM Reporting Lab: [facility] [address] [facility] [address] Performing Lab: [address] [address] [place] TSH THYROTROPI N [UNITS/VOL UME] IN SERUM OR PLASMA 1.16 u[IU]/mL 0.35 - 5.00 11/06 Specimen Type: SERUM No comment entered. Ordering Provider: TYLER ARBOLEDA A Report Released Date/Time: August 17, 2023 01:25 PM Reporting Lab: [address] [address] Performing Lab: [address] [address] [place] HEMOGLOB IN A1C PANEL HEMOGLOBIN [...] be between 8.73 and 9.27. Ref: http://[email or web address] [facility].org/[place] Pdata.asp Ordering Provider: TYLER ARBOLEDA A Report Released Date/Time: August 17, 2023 01:25 PM Reporting Lab: [address] [address] Performing Lab: [address] [address] [place] MAGNESIU M MAGNESIUM [MASS/VOLU ME] IN SERUM OR PLASMA 1.9 mg/dL 1.6 - 2.6 11/06 Specimen Type: SERUM No comment entered. Ordering Provider: TYLER ARBOLEDA A Report Released Date/Time: August 17, 2023 01:25 PM Reporting Lab: [address] [address] Performing Lab: [address] [address] [place] VITAMIN D (25-OH) 25-HYDROXY VITAMIN D3 [MASS/VOLU ME] IN SERUM OR PLASMA 28 ng/mL 20 - 50 11/06 Specimen Type: SERUM No comment entered. Ordering Provider: TYLER ARBOLEDA A Report Released Date/Time: August 17, 2023 01:25 PM Reporting Lab: [address] [address] Performing Lab: [address] [address] [place] VITAMIN B12 COBALAMIN (VITAMIN B12) [MASS/VOLU ME] IN SERUM OR PLASMA 424 pg/mL 200 - 900 11/06 Specimen Type: SERUM No comment entered. Ordering Provider: TYLER ARBOLEDA A Report Released Date/Time: August 17, 2023 01:25 PM Reporting Lab: [address] [address] Performing Lab: [address] [address] [place] Vital Signs Combined list of inpatient and outpatient Vital Signs from Department of Defense and Veterans Affairs, ranging from 12 months to all on record, depending upon the facility. Vital Sign Value Date Comments Source SYSTOLIC BLOOD PRESSURE 109 02/26/20 13:11:41 [facility] DIASTOLIC BLOOD PRESSURE 58 13:11:41 [facility] PULSE OXIMETRY 94 02/26/2024 13:11:41 [facility] WEIGHT 183.2 02/26/2024 13:11:41 [facility] BMI 26 kg/m2 02/26/2024 13:11:41 [facility] TEMPERATURE 97.2 02/26/2024 13:11:41 [facility] PULSE 56 02/26/2024 13:11:41 [facility] SYSTOLIC BLOOD PRESSURE 159 09/10/19 11:32:13 [place] [facility] [place] [facility] DIASTOLIC BLOOD PRESSURE 63 11:32:13 [facility] [place] [facility] PULSE OXIMETRY 97 09/10/2023 11:32:13 [place] [facility] [place] [facility] PAIN 0 09/10/2023 11:32:13 [place] [facility] [place] [facility] PULSE 54 09/10/2023 11:32:13 [place] [facility] [place] [facility] SYSTOLIC BLOOD PRESSURE 134 08/07/19 15:14:54 [facility] DIASTOLIC BLOOD PRESSURE 69 15:14:54 [facility] PULSE OXIMETRY 97 08/07/2023 15:14:54 [facility] WEIGHT 193 08/07/2023 15:14:54 [facility] BMI 28 kg/m2 08/07/2023 15:14:54 [facility] HEIGHT 70 08/07/2023 15:14:54 [facility] TEMPERATURE 98.3 08/07/2023 15:14:54 [facility] PULSE 54 08/07/2023 15:14:54 [facility] RESPIRATION 18 08/07/2023 15:14:54 [facility] SYSTOLIC BLOOD PRESSURE 152 06/30/19 10:28:55 [facility] DIASTOLIC BLOOD PRESSURE 78 024 10[facility]28:55 [facility] PULSE OXIMETRY 98 06/30/2023 10[facility]28:[facility] WEIGHT 203 06/30/2023 10:28:[facility] BMI 29 kg/m2 06/30/2023 10:28:[facility] PAIN 0 06/30/2023 10:28:55 [facility] 97.3 06/30/2023 10:28:55 [facility] PULSE 98 06/30/2023 10:28:55 [facility] RESPIRATION 18 06/30/2023 10:28:55 [facility] HEIGHT 70 06/23/2023 12:48:00 [facility] Encounters Combined list of: 1) Encounters from Department of Veterans Affairs facilities going backup to the last 18 months, not all [place] inpatient encounters are included; 2) Encounters from the Department of Defense facilities going backup to 280 months. 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, high risk, bilater al YAZAN ANDERSON A S 02/[address] [place] [address] [facility] En[facility] [id number] 03/25 [facility] [place] [facility] [facility] [place] [facility] OFF/OP EST MAY X REQ PHY/QHP [id number] Diagnos is: ICD-10- CM Z23 Encount er for immuniz JIMMY Gama 03/25 [facility] OFFICE O/P EST MOD 30-39 MIN [id number] Diagnos is: ICD-10- CM F43.10 Post-tr aumatic stress disorde r, unspeci fied GAGANDEEP EDWARD RRIE N 03/25 [facility] Outpatient Encounter [id number] 03/25 [facility] Outpatient Encounter [id number] 03/31 [facility] Outpatient Encounter [id number] 04/16 [facility] Outpatient Encounter [id number] 04/[address] HEARING AID REPAIR/MOD IFYING [id number] Diagnos is: ICD-10- CM Z46.1 Encount er for fitting and adjustm ent of hearing aid CA BLAKE 05/[address] [place] [address] HEARING AID FITTING/CH ECKING [id number] Diagnos is: ICD-10- CM Z46.1 Encount er for fitting and adjustm ent of hearing aid [place] BLAKE 05/[address] [place] [address] OFFICE O/P EST MOD 30 MIN [id number] Diagnos is: ICD-10- CM L30.8 Other specifi ed dermati tis JANESSA MERRITT 05/[address] HEARING AID REPAIR/MOD [place]YING [id number] Diagnos is: ICD-10- CM Z46.1 Encount er for fitting and adjustm ent of hearing aid SANDRO CARRERO 05/[address] [place] [address] HEARING AID FITTING/CH ECKING [id number] Diagnos is: ICD-10- CM Z46.1 Encount er for fitting and adjustm ent of hearing aid SANDRO CARRERO 06/[address] [place] [address] HC PRO PHONE CALL 11-20 MIN [id number] Diagnos is: ICD-10- CM R68.89 Other general symptom s and signs MARILEE ARIAS DOLPH 06/22 [facility] Outpatient Encounter [id number] 06/25 [facility] OFFICE O/P EST LOW 20 MIN [id number] Diagnos is: ICD-10- CM J44.9 Chronic obstruc tive pulmona ry disease , unspeci fied KRISTINE MORROW 06/29 [facility] Outpatient Encounter [id number] 06/[address] Outpatient Encounter [id number] 07/[address] [place] [address] [facility] [place] [facility] Outpatient Encounter [id number] 07/17 [place] [facility] [place] [place] [facility] [place] [facility] Outpatient Encounter [id number] 08/05 [facility] [place] [facility] [place] [facility] Outpatient Encounter [id number] 08/06 [place] [facility] [place] [facility] OFFICE O/P [place] HI 40 MIN [id number] Diagnos is: ICD-10- CM J96.11 Chronic respira tory failure with hypoxia ERLINDA ARBOLEDA 08/06 [facility] [place] [facility] Outpatient Encounter [id number] 08/06 [place] [facility] [place] [facility] ELECTROCAR DIOGRAM REPORT [id number] Diagnos is: ICD-10- CM Z13.6 Encount er for screeni ng for cardiov ascular disorde TINO Sánchez 08/06 [place] [facility] [place] [facility] ELECTROCAR DIOGRAM TRACING [id number] SHI GUERRERO 08/06 [place] [facility] [place] [facility] [place] [facility] Outpatient Encounter [id number] Diagnos is: ICD-10- CM I48.0 Paroxys mal atrial fibrill ation GERARDHERNANDEZ N E 08/10 [place] [facility] [place] [facility] [place] [facility] QNHP OL DIG ASSMT&MGMT 11- [id number] Diagnos is: ICD-10- CM I48.0 Paroxys mal atrial fibrill ation GUNJAN BRONSON 08/10 [facility] [place] [facility] Outpatient Encounter [id number] 08/10 [place] [facility] [place] [facility] [place] OFF/OP EST AUGUST X REQ PHY/QHP [id number] Diagnos is: ICD-10- CM Z71.89 Other specifi ed counseling services manager ing JENNIFER MOORE 08/13 [facility] Out[facility] Encounter [id number] 08/14 [facility] [place] [facility] TTE W/DOPPLER COMPLETE [id number] Diagnos is: ICD-10- CM I48.0 Paroxys mal atrial fibrill ation PEDRO CHISHOLM 08/17 [facility] [place] [facility] OFFICE O/P EST LOW 20 MIN [id number] Diagnos is: ICD-10- CM I48.0 Paroxys mal atrial fibrill ation TINO LABOY 08/17 [place] [facility] [place] [facility] Outpatient Encounter [id number] 08/24 [facility] [place] [place] [facility] [place] UNLISTED SPEC DERM SVC/PX [id number] Diagnos is: ICD-10- CM Z13.89 Encount er for screeni ng for other disorde r Sandeep IYER 08/24 [place] [facility] OFFICE O/P EST SF 10 MIN [id number] Diagnos is: ICD-10- CM L92.0 Granulo ma annular e JORGE L SHIN PH J 08/24 [facility] [place] [facility] Outpatient Encounter [id number] 08/24 [facility] [place] [place] [facility] Out[facility] Encounter [id number] 08/25 [facility] [place] [facility] Outpatient Encounter [id number] 08/25 [facility] [place] [facility] [place] [facility] Outpatient Encounter [id number] 09/08 [facility] [place] [facility] TARGETED CASE MANAGEMENT [id number] Shaila ROMO 09/08 [facility] [place] [facility] ODONTOPLAS TY 1-2 TEETH [id number] Diagnos is: ICD-10- CM K08.531 Fractur ed dental restora tive materia l with loss of materia l ELDER VALLEJO AM 09/09 [facility] [place] [facility] Encounter [id number] 09/18 [facility] PSYCH DIAGNOSTIC EVALUATION [id number] Diagnos is: ICD-10- CM F43.12 Post-tr aumatic stress disorde r, chronic ROHAN SCALES G 09/22 [facility] Outpatient Encounter [id number] 09/25 [facility] QNHP OL DIG ASSMT&MGMT 5-10 [id number] Diagnos is: ICD-10- CM I48.20 Chronic atrial fibrill ation, unspeci ROHAN Benedict 09/25 [facility] [place] [facility] Outpatient Encounter [id number] 09/29 [place] [facility] [place] [place] [facility] [place] [facility] INTRAORAL FULL IMAGE SERIES [id number] Diagnos is: ICD-10- CM K03.6 Deposit s [accret ions] on teeth MARCELINA CARREON 10/01 [place] [facility] [place] [place] [facility] [place] [facility] Outpatient Encounter [id number] 10/16 [place] [facility] [place] [facility] OFFICE O/P EST LOW 20 MIN [id number] Diagnos is: ICD-10- CM J96.11 Chronic respira tory failure with hypoxia ERLINDA ARBOLEDA A 10/29 [facility] HEARING AID REPAIR/MOD IFYING [id number] Diagnos is: ICD-10- CM Z46.1 Encount er for fitting and adjustm ent of hearing aid JABIER GUY 11/06 [place] [facility] Out[facility] Encounter [id number] 1.11/12 [facility] [place] OFF/OP CONSLTJ NEW/[place] HI 55 [id number] Diagnos is: ICD-10- CM F43.10 Post-tr aumatic stress disorde r, unspeci fied HERNANDEZ,ST EVEN G 11/12 [place] [facility] COMPRE OPH EXAM NEW PT 1/> [id number] Diagnos is: ICD-10- CM 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, right eye, mild stage OSHIJOSE MONGE 11/13 [facility] CMPTR OPHTH IMG OPTIC NERVE [id number] Diagnos is: ICD-10- CM 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 Diagnos is: ICD-10- CM R41.3 Other amnesia FEARING,BLAIRE COE A 11/30 [facility] En[facility] [id number] 12/01 [facility] Encounter [id number] 1.12/03 [facility] Encounter [id number] 12/06 [facility] PSYCL/NR[place] Y[place] TST PHY/[place] [id number] Diagnos is: ICD-10- CM R41.3 Other amnesia FEARING,BLAIRE COE A 12/08 [facility] [place] Outpatient Encounter [id number] 48 12/24 [place] [facility] Out[facility] Encounter [id number] 1.12/24 [facility] Out[facility] Encounter [id number] [facility] EXTENDED VISUAL FIELD XM [id number] 1. 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, right eye, mild stage OSHINSKIE, JOSE Posey 12/31 [facility] CONFORMITY EVALUATION [id number] Diagnos is: ICD-10- CM Z46.1 Encount er for fitting and adjustm ent of hearing aid Shaila BARDALES 01/01 [facility] Outpatient Encounter [id number] [facility] Outpatient Encounter [id number] 1.01/15 [facility] FEE [id number] Diagnos is: ICD-10- CM F43.10 Post-tr aumatic stress disorde r, unspeci fiSandeep Ortiz 01/20 [facility] OFFICE O/P EST LOW 20 MIN [id number] Diagnos is: ICD-10- CM F43.10 Post-tr aumatic stress disorde r, unspeci fied MARY,ST EVEN G 01/20 [facility] IE [facility] CONFORMITY EVALUATION [id number] Diagnos is: ICD-10- CM Z46.1 Encount er for fitting and adjustm ent of hearing aid Shaila BARDALES 02/04 [facility] INTRM OPH EXAM EST PATIENT [id number] Diagnos is: ICD-10- CM 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 ERLINDA ARBOLEDA VID A 02/25 [facility] Outpatient Encounter [id number] 1[facility]03/17 [facility] Out[facility] Encounter [id number] 1.03/30 [facility] HEARING AID REPAIR/MOD IFYING [id number] Diagnos is: ICD-10- CM Z46.1 Encount er for fitting and adjustm ent of hearing aid MILLIE OVALLES 04/15 [facility] Out[facility] Encounter [id number] 04/20 [facility] Out[facility] Encounter [id number] [facility] NQHP OL DIG ASSMT&MGMT 5-10 [id number] Diagnos is: ICD-10- CM Z79.01 alf (curren t) use of anticoa gulants TATI YU 04/23 [facility] [facility] [place] [facility] Outpatient Encounter [id number] [place] [facility] [place] [facility] Outpatient Encounter [id number] 04/26 [place] [facility] FEE [id number] Diagnos is: ICD-10- CM F43.10 Post-tr aumatic stress disorde r, unspeci fiSandeep Ortiz 04/28 [facility] OFFICE O/P EST LOW 20 MIN [id number] Diagnos is: ICD-10- CM F43.10 Post-tr aumatic stress disorde r, unspeci fiST Giullaume EVEN G 04/28 [facility] [place] [facility] Outpatient Encounter [id number] 05/11 [place] [facility] [place] [facility] HEARING AID FITTING/CH ECKING [id number] Diagnos is: ICD-10- CM Z46.1 Encount er for fitting and adjustm ent of hearing aid JABIER GUY 05/11 [place] [facility] Social History Combined list of available smoking, tobacco, and other social history from Department of Defense and Veterans Affairs facilities. Social History Type Response Date Comment Sourc e Tobacco smoking status NHIS VA-TOBACCO NEVER USED 08/06/2023 [place] [place] [facility] History of tobacco use VA-TOBACCO NEVER USED 06[facility]20[facility] History of tobacco use VA-TOBACCO NEVER USED 07/[facility]20[facility] History of tobacco use VA-TOBACCO FORMER USER 10/11/[facility] History of tobacco use VA-TOBACCO QUIT 15 YRS OR MORE 08/03/2019 [facility] History of tobacco use SD-TOBACCO QUIT 15 YRS OR MORE 06/03/2018 [facility] History of tobacco use QUIT TOBACCO >7 YEARS AGO 11/13/2017 [facility] History of tobacco use LIFETIME NON-USER OF TOBACCO 12/25/2016 [facility] History of tobacco use QUIT TOBACCO >7 YEARS AGO 01/25/2016 [facility] History of tobacco use CURRENT TOBACCO USER 12/14/2014 [facility] History of tobacco use QUIT TOBACCO >7 YEARS AGO 01/09/2010 [facility] History of tobacco use QUIT TOBACCO >7 YEARS AGO 01/10/2009 [facility] History of tobacco use QUIT TOBACCO >7 YEARS AGO 02/02/2008 [facility] Plan of Care List of future care activities from Department of [facility] facilities. Additional future care activities may be listed in the Assessment and Plan section. Date/Time Care Activity Care Activity Detail Facili ty 05/26/2024 AMBULATORY - MEDICINE AMBULATORY - [facility] 05/26/2024 AMBULATORY - PSYCHIATRY [facility] [place] [place] [facility] 05/26/2024 AMBULATORY - PSYCHIATRY AMBULATORY - PS[place]C [place] [facility] 06/22/2024 AMBULATORY - MEDICINE AMBULATORY - MEDICI NE [facility] 06/22/2024 AMBULATORY - NONE AMBULATORY - NONE [facility] [place] [facility] 09/14/2024 AMBULATORY - MEDICINE [facility] [place] [facility] Advance Directives List of completed, amended, or rescinded Advance Directives on record at Department of Veterans Affairs facilities. An actual copy of the Directive is not included. Date Advance Directive Provider Source 08/25/2023 ADVANCE DIRECTIVE MICHELLE LEVINE [facility]
--- OUTSIDE RECORDS SUMMARY | 2024-05-20 21:30 | XMS_ITS | Clinical Summary ---
Author Organization [facility] Address [address] [place] [address] Phone Care Team Providers Care Day Care Attendant Name Role Phone & Sports Medicine, Ahmet Ortho Unavailable [phone] Kenney PARK MD, Christ Hernandez Unavailable [phone] Leti CUELLO, Maryan Rose Unavailable [phone] Junaid CUELLO, Bora Unavailable [phone] Andres CUELLO, Narendra Primary Care Provider [phone] Florecita CUELLO, Deni Unavailable [phone] Gloria Morris PA-C Unavailable [phone] Edita CUELLO, Martinez Unavailable [phone] Cathy CUELLO, Sylvester Penaloza Unavailable + [phone] Smiley Calderon Unavailable [phone] Valeyr CUELLO, Dane Unavailable [phone] Colton Guardado MD Unavailable [phone] Mt Mistry DO Unavailable [phone] Kay CUELLO, Merle Unavailable [phone] Reason for Visit and Chief Complaint CT Thorax w/o Contrast Problems Includes: Problems addressed during this encounter and other active Problems All Visits Onset Date Resolved Date Provider Condition S tatus 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 06/25/2021 Gloria Morris PA-C Active Last Documented On 04/02/2022 10:30AM ; [facility] Note: 50-69% left, non surgical in [address] gar, repeat in one year Diabetes Mellitus Type 2 with Complication 06/25/2021 Gloria BEARC Active Last Documented On 2 10:45AM ; [facility] Chronic Respiratory Failure 07/04/2020 Narendra miramontes MD Active Last Documented On 07/04/2020 11:28AM ; [facility] Note: on continuous home oxygen Coronary Artery Disease 04/21/2019 Jessica MODIP Active Last Documented On 0 8:03AM ; [facility] Atherosclerosis Coronary Art maryann with Angina Pectoris 01/15/2019 Gloria MOFFETT-C Active Last Documented On 9 9:21AM ; [facility] Edema 01/14/2019 Philip BECKER Active Last Documented On 9 2:52PM ; [facility] 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 Gloria MOFFETT-C Active Last Documented On 9 8:57AM ; [facility] Note: per pulm notedECHO with 45-50%, mi ldly reduced LVSF 06/2017 Osteoarthritis Localized Primary Knees Bilateral 04/03/2018 Juany MOFFETT-C Active Last Documented On 8 11:45AM ; [facility] 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 Narendra Campos MD Active Last Documented On 8 11:49AM ; [facility] Colon Polyps 06/20/2017 Martinez Kohler MD Active Last Documented On 8 11:24AM ; [facility] Atrial Fibrillation 10/10/2015 Narendra Campos MD Active Last Documented On 6 9:16AM ; [facility] Note: s/p ablation Chronic Obstructive Pulmonary Disease 11/29/2013 Narendra Campos MD Active Last Documented On 4 2:43PM ; [facility] Post-traumatic Stress Disorder 11/29/2013 Jt Campos MD Active Last Documented On 4 10:39AM ; [facility] Patellar Chondromalacia 03/02/2013 Narendra baltazar MD Active Last Documented On 4 7:42AM ; [facility] Note: Unchanged Asthma 09/04/2012 Narendra Campos MD Activ e Last Documented On 4 7:42AM ; [facility] Atherosclerosis Aorta 03/26/2012 Narendra mendez MD Active Last Documented On 4 7:42AM ; [facility] Note: on ct scan Rhinitis 08/04/2009 Narendra Campos MD Activ e Last Documented On 4 7:42AM ; [facility] Note: Unchanged Esophagitis Chronic Reflux 07/28/2009 Gloria Morris PA-C Active Last Documented On 4 2:20PM ; [facility] Note: Unchanged Hypertension Systemic 07/28/2009 Norma PANDEY Active Last Documented On 0 6:29PM ; [facility] Note: Unchanged Colonic Diverticulosis 10/06/2007 Narendra oconnor MD Active Last Documented On 4 7:42AM ; [facility] Note: Unchanged Hyperlipidemia Mixed 10/06/2007 Narendra gomez MD Active Last Documented On 4 7:42AM ; [facility] Note: Unchanged Plan of Treatment Care Programs Check if Patient is Eligible for [facility] Services Last Documented On 8 12:04AM ; [facility] Assessments Includes: Assessments from this encounter No [...] 4 2:24PM By Shubham Patel APRN ; [facility] Albuterol Sulfate HFA 108 (9 0 Base) MCG/ACT Inhalation Aerosol Solution 05/13/2023 Provider: Brittany Patel APRN Diagnosis: Shortness of tristin ath 2 puffs q4h prn Last Documented On 4 2:24PM By Shubham Patel APRN ; [facility] Levocetirizine Dihydrochlori de 5 MG Oral Tablet 05/13/2023 Provider: Shubham Patel APRN Diagnosis: Allergic rhiniti s, unspecified 1 once daily Last Documented On 4 2:24PM By Shubham Patel APRN ; [facility] Albuterol Sulfate HFA 108 (90 Base) MCG/ACT Inhalation Aerosol Solution 07/19/2022 Provider: Frannie Guidry DNP DIVER PU[employer]ER-BC Diagnosis: Shortness of tristin ath 2 puffs q4h prn Last Documented On 3 9:03AM By Frannie Garrison APRN ; [facility] Oxygen Inhalation Gas 04/02/2022 Provider: Diagnosis: Last Documented On 2 10:09AM By Gloria Morris PA-C ; [facility] Atorvastatin Calcium 80 MG Oral Tablet 02/20/2021 Provider: Gloria Briscoe Diagnosis: Mixed hyperlipid emia 1 once daily Last Documented On 2 9:52AM By Arlette Aj ; [facility] hydrALAZINE HCl 25 MG OR TABS 12/29/2020 Provider: Colton Guardado MD Diagnosis: every 8 hours as needed for for BP over 160 Last Documented On 2 9:53AM By Arlette Aj ; [facility] Metoprolol Succinate ER 50 M G Oral Tablet Extended Release 24 Hour 07/14/2020 Provider: Diagnosis: Last Documented On 1 4:45AM By Jessica BECKER ; [facility] Furosemide 20 MG OR TABS 06/24/2019 Provider: Keegan Guardado MD Diagnosis: 1 once daily Last Documented On 1 11:14AM By Aleah Cerda ; [facility] Fluticasone Propionate 50MCG/ACT Nasal Suspension 02/19/2019 Provider: Gloria Morris PA-C Diagnosis: Chronic sinusiti s, unspecified use as directed 2 sprays eac h nare daily Last Documented On 9 8:23AM By Savita Caal ; [facility] Primidone 50 MG OR TABS 10/13/2018 Provider: Supriya Lombardo DO Diagnosis: Tremor, unspecif ied 3po q HS Last Documented On 9 8:22AM By Savita Caal ; [facility] Sertraline HCl 100MG Oral Tablet 09/07/2017 Provider : Diagnosis: Last Documented On 8 2:34PM By Colton Guardado M.D. ; [facility] Aspirin EC Low Dose 81MG Oral Tablet Delayed Release 0 07/11/2016 Provider: Diagnosis: Last Documented On 7 4:19PM By Colton Guardado M.D. ; [facility] Pradaxa 150MG Oral Capsule 07/11/2016 Provider: Diagnosis: Last Documented On 7 4:15PM By Colton Guardado M.D. ; [facility] Temazepam 15 MG OR CAPS 07/20/2014 Provider: Janay Morris PA-C Diagnosis: Long-term use of high-risk meds. 1-2 qHS prn. Last Documented On 5 11:02AM By Gloria Morris PA-C ; [facility] Medications Administered Includes: Administered Medications from this [...] Location Service Date CT thorax w/o contrast 67953 Other disorders of lung Ismael Starkey MD [facility] 06/04/2023 Last Documented On 4 [...] Active Last Documented On 06/16/2023 2:04PM ; [facility] Note: facial lip swelling listaprill Allergy swollen 07/13/2020 Active Last Documented On 4 2:04PM ; [facility] Encounters Encounter Provider Location Date Check-In Time Check-Out Time Diagnosis CT Thorax w/o Contrast [facility] 4 1:15PM 1:16PM Insurance Includes: Active Insurance Policies Plan Name Member ID Group # Subscriber Relationship Effect ana m Dates 1 - Medicare Part B [id number] Nick Javad Oliva Self 2 - [employer]/ [employer] [id number] Nick Choeey Self 07/13 - Unknown Advance Directives Includes: Current Advance Directives Directive Pat Aware Third Constitution Party Effective Date Reviewed [facility] Power of [employer]/Healthcare Surrogate Yes 08/08/2017 Current and Verified Clinical Notes Includes: Clinical Notes from this encounter No Clinical Notes Recorded
--- OUTSIDE RECORDS SUMMARY | 2024-05-20 21:30 | XMS_ITS | Clinical Summary ---
Author Organization [facility] Address [address] [place] [address] Phone Care Team Providers Care Stunt Person Name Role Phone & Sports Medicine, [facility] Unavailable + [phone] Kenney PARK MD, Christ Hernandez Unavailable [phone] Leti CUELLO, Maryan Rose Unavailable [phone] Junaid CUELLO, oBra Unavailable [phone] Andres CUELLO, Narendra Primary Care Provider [phone] Deni Bernabe MD Unavailable [phone] Gloria Morris PA-C Unavailable [phone] Edita CUELLO, Martinez Unavailable [phone] Cathy CUELLO, Sylvester Penaloza Unavailable + [phone] Smiley Calderon Unavailable [phone] Valery CUELLO, Dane Unavailable [phone] Colton Guardado MD Unavailable [phone] [place] M[place] DO Unavailable [phone] Kay CUELLO, Merle Unavailable [phone] Reason for Visit and Chief Complaint [facility] Medicare Follow Up Visit Problems Includes: Problems addressed during this encounter and other active Problems All Visits Onset Date Resolved Date Provider Condition S tatus 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 06/25/2021 Gloria Morris PA-C Active Last Documented On 04/02/2022 10:30AM ; [facility] Note: 50-69% left, non surgical in [address] gar, repeat in one year Diabetes Mellitus Type 2 with Complication 06/25/2021 Gloria BEARC Active Last Documented On 2 10:45AM ; [facility] Chronic Respiratory Failure 07/04/2020 Narendra miramontes MD Active Last Documented On 07/04/2020 11:28AM ; [facility] Note: on continuous home oxygen Coronary Artery Disease 04/21/2019 Jessica MODIP Active Last Documented On 0 8:03AM ; [facility] Atherosclerosis Coronary Art maryann with Angina Pectoris 01/15/2019 Gloria MOFFETT-C Active Last Documented On 9 9:21AM ; [facility] Edema 01/14/2019 Philip BECKER Active Last Documented On 9 2:52PM ; [facility] 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 Gloria MOFFETT-C Active Last Documented On 9 8:57AM ; [facility] Note: per pulm notedECHO with 45-50%, mi ldly reduced LVSF 06/2017 Osteoarthritis Localized Primary Knees Bilateral 04/03/2018 Juany MOFFETT-C Active Last Documented On 8 11:45AM ; [facility] 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 Narendra Campos MD Active Last Documented On 8 11:49AM ; [facility] Colon Polyps 06/20/2017 Martinez Kohler MD Active Last Documented On 8 11:24AM ; [facility] Atrial Fibrillation 10/10/2015 Narendra Campos MD Active Last Documented On 6 9:16AM ; [facility] Note: s/p ablation Chronic Obstructive Pulmonary Disease 11/29/2013 Narendra Campos MD Active Last Documented On 4 2:43PM ; [facility] Post-traumatic Stress Disorder 11/29/2013 Jt Campos MD Active Last Documented On 4 10:39AM ; [facility] Patellar Chondromalacia 03/02/2013 Narendra baltazar MD Active Last Documented On 4 7:42AM ; [facility] Note: Unchanged Asthma 09/04/2012 Narendra Campos MD Activ e Last Documented On 4 7:42AM ; [facility] Atherosclerosis Aorta 03/26/2012 Narendra mendez MD Active Last Documented On 4 7:42AM ; [facility] Note: on ct scan Rhinitis 08/04/2009 Narendra Campos MD Activ e Last Documented On 4 7:42AM ; [facility] Note: Unchanged Esophagitis Chronic Reflux 07/28/2009 Gloria Morris PA-C Active Last Documented On 4 2:20PM ; [facility] Note: Unchanged Hypertension Systemic 07/28/2009 Norma PANDEY Active Last Documented On 0 6:29PM ; [facility] Note: Unchanged Colonic Diverticulosis 10/06/2007 Narendra oconnor MD Active Last Documented On 4 7:42AM ; [facility] Note: Unchanged Hyperlipidemia Mixed 10/06/2007 Narendra gomez MD Active Last Documented On 4 7:42AM ; [facility] Note: Unchanged Plan of Treatment Pending Tests Order Diagnosis Results Due Ordering P rovider Lab Neuropathy (RO) 04/29/23 Gloria Morris PA-C Last Documented On 4 3:03PM ; [facility] Lab Hemoglobin A1c 04/29/23 Gloria Morris PA-C Last Documented On 4 3:03PM ; [facility] Lab Antinuclear Antibodies, IFA 04/29/23 Gloria Morris PA-C Last Documented On 4 3:03PM ; [facility] Lab Vitamin B12 04/29/23 Gloria Chino Arturo PA-C Last Documented On 4 3:03PM ; [facility] Lab Basic Metabolic Panel (8) 04/29/23 Gloria Raman Morris PA-C Last Documented On 4 3:03PM ; [facility] Lab COMPLETE BLOOD COUNT 04/29/23 Janay garcias Raman Morris PA-C Last Documented On 4 3:03PM ; [facility] Lab SED RATE, iSED 04/29/23 Glorianatividad thurmanpatricia Morris PA-C Last Documented On 4 3:03PM ; [facility] Lab Folate (Folic Acid), Serum 04/29/23 Gloria Raman MOFFETT-C Last Documented On 4 3:03PM ; [facility] Lab Thyroxine (T4) Free, Direct, S 04/29 Gloria Morris PA-C Last Documented On 4 3:03PM ; [facility] Lab Hepatitis A Ab, IgM 04/29/23 Christopher mckeon Raman Morris PA-C Last Documented On 4 3:03PM ; [facility] Lab Hepatitis A Ab, Total 04/29/23 Miguel henson Raman Morris PA-C Last Documented On 4 3:03PM ; [facility] Lab Hepatitis B Core Ab, Tot 04/29/23 Gloria Morris PA-C Last Documented On 4 3:03PM ; [facility] Lab Hepatitis B Surface Ag 04/29/23 helen Morris PA-C Last Documented On 4 3:03PM ; [facility] Lab HEPATITIS B CORE AB TOTAL W/REFL IGM 04/29/23 Gloria Morris PA-C Last Documented On 4 3:03PM ; [facility] Lab Hepatitis B Core Ab, IgM 04/29/23 Gloria Morris PA-C Last Documented On 4 3:03PM ; [facility] Lab Hepatic Function Panel (7) 04/29/23 Gloria Wileytoni MOFFETT-Shaila Last Documented On 4 3:03PM ; [facility] Lab Albumin/Creat Ratio Urine 04/29/23 Gloria Wileytoni Morris PA-C Last Documented On 4 3:03PM ; [facility] Lab RPR 04/29/23 Glorianatividad Morris PA-C Last Documented On 4 3:03PM ; [facility] Lab Protein Electro.,S 04/29/23 Gloria Raman MOFFETT-Shaila Last Documented On 4 3:03PM ; [facility] Lab TSH 04/29/23 Gloria Morris PA-C Last Documented On 4 3:03PM ; [facility] Lab Protein Electro, Random Urine Glorianatividad Morris PA-C Last Documented On 4 3:03PM ; [facility] Lab Vitamin D, 25-Hydroxy 04/29/23 Miguel henson Raman Morris PA-C Last Documented On 4 3:03PM ; [facility] Care Programs Check if Patient is Eligible for [facility] Services Last Documented On 8 12:04AM ; [facility] Future Tests Order Diagnosis Results Due Ordering Pr ovider Radiology Studies - Ultrasound U/S-Soft 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 04/18/21 Gloria Morris PA-C Last Documented On 1 10:13AM ; [facility] Radiology Studies - Vascular Ultrasound Carotid Doppler Dizziness and giddiness 05/15/21 Gloria MOFFETT-Shaila Last Documented On 2 10:33AM ; [facility] Refer To Neurology Dizziness and giddiness 06/07/21 Tremaine MOFFETT-Shaila Last Documented On 2 1:34PM ; [facility] Refer To ENT Dizziness and giddiness 06/07/21 Tremaine MOFFETT-C Last Documented On 2 1:34PM ; [facility] Refer To Cardiology Cardiac arrhythmia, unspecified 05/16 08/03 Gloria MOFFETT-C Last Documented On 2 1:49PM ; [facility] Refer To Surgery-Vascular Occlusion and s tenosis of left carotid artery 06/20/21 Gloria Morris PA-C Last Documented On 2 9:10AM ; [facility] Refer To Gastroenterology Polyp of colon 12/12/22 Janay garcias Raman MOFFETT-C Last Documented On 3 1:44PM ; [facility] Lab NEETA (RO1) 04/29/23 Gloria MOFFETT-C Last Documented On 4 8:52AM ; [facility] Lab CBC (RO1) 04/29/23 Gloria MOFFETT-C Last Documented On 4 8:52AM ; [facility] Lab Vitamin B12 (RO1) 04/29/23 Gloria Morris PA-C Last Documented On 4 8:52AM ; [facility] Lab Vitamin D 25 hydroxy (RO1) 04/29/23 Gloria MOFFETT-C Last Documented On 4 8:52AM ; [facility] Lab TSH , Free T4 (GVC) 04/29/23 Christopher linda Raman MOFFETT-Shaila Last Documented On 4 8:52AM ; [facility] Lab Diabetes Panel (RO) 05/22/23 Ra helen MOFFETT-Shaila Last Documented On 3 1:28PM ; [facility] Refer To Neurology Dizziness and giddiness 05/22/23 Tremaine MOFFETT-Shaila Last Documented On 4 8:55AM ; [facility] Refer To Physical Therapy Dizziness and giddiness Gloria MOFFETT-C Last Documented On 4 8:55AM ; [facility] Assessments Includes: Assessments from this encounter [...] 2:24PM By Shubham Patel APRN ; [facility] Albuterol Sulfate HFA 108 (9 0 Base) MCG/ACT Inhalation Aerosol Solution 05/13/2023 Provider: Brittany Patel APRN Diagnosis: Shortness of tristin ath 2 puffs q4h prn Last Documented On 4 2:24PM By Shubham Patel APRN ; [facility] Levocetirizine Dihydrochlori de 5 MG Oral Tablet 05/13/2023 Provider: Shubham Patel APRN Diagnosis: Allergic rhiniti s, unspecified 1 once daily Last Documented On 4 2:24PM By Shubham Patel APRN ; [facility] Albuterol Sulfate HFA 108 (90 Base) MCG/ACT Inhalation Aerosol Solution 07/19/2022 Provider: Frannie MODI P DNP CRACKING AND FANNING MACHINE OPERATOR-BC Diagnosis: Shortness of tristin ath 2 puffs q4h prn Last Documented On 3 9:03AM By Frannie Garrison APRN ; [facility] Oxygen Inhalation Gas 04/02/2022 Provider: Diagnosis: Last Documented On 2 10:09AM By Gloria Morris PA-C ; [facility] Atorvastatin Calcium 80 MG Oral Tablet 02/20/2021 Provider: lGoria Briscoe Diagnosis: Mixed hyperlipid emia 1 once daily Last Documented On 2 9:52AM By Arlette Aj ; [facility] hydrALAZINE HCl 25 MG OR TABS 12/29/2020 Provider: Colton Guardado MD Diagnosis: every 8 hours as needed for for BP over 160 Last Documented On 2 9:53AM By Arlette Aj ; [facility] Metoprolol Succinate ER 50 M G Oral Tablet Extended Release 24 Hour 07/14/2020 Provider: Diagnosis: Last Documented On 1 4:45AM By Jessica BECKER ; [facility] Furosemide 20 MG OR TABS 06/24/2019 Provider: Keegan Guardado MD Diagnosis: 1 once daily Last Documented On 1 11:14AM By Aleah Cerda ; [facility] Fluticasone Propionate 50MCG/ACT Nasal Suspension 02/19/2019 Provider: Gloria Morris PA-C Diagnosis: Chronic sinusiti s, unspecified use as directed 2 sprays eac h nare daily Last Documented On 9 8:23AM By Savita Caal ; [facility] Primidone 50 MG OR TABS 10/13/2018 Provider: Supriya Lombardo DO Diagnosis: Tremor, unspecif ied 3po q HS Last Documented On 9 8:22AM By Savita Caal ; [facility] Sertraline HCl 100MG Oral Tablet 09/07/2017 Provider : Diagnosis: Last Documented On 8 2:34PM By Colton Guardado M.D. ; [facility] Aspirin EC Low Dose 81MG Oral Tablet Delayed Release 0 07/11/2016 Provider: Diagnosis: Last Documented On 7 4:19PM By Colton Guardado M.D. ; [facility] Pradaxa 150MG Oral Capsule 07/11/2016 Provider: Diagnosis: Last Documented On 7 4:15PM By Colton Guardado M.D. ; [facility] Temazepam 15 MG OR CAPS 07/20/2014 Provider: Janay Morris PA-C Diagnosis: Long-term use of high-risk meds. 1-2 qHS prn. Last Documented On 5 11:02AM By Gloria Morris PA-C ; [facility] Medications Administered Includes: Administered Medications from [...] Last Documented On 06/16/2023 2:04PM ; [facility] Note: facial lip swelling listaprill Allergy swollen 07/13/2020 Active Last Documented On 2:04PM ; [facility] Insurance Includes: Active Insurance Policies Plan Name Member ID Group # Subscriber Relationship Effect ana m Dates 1 - Medicare Part B [id number] Nick Oliva Self 2 - [employer]ar[employer]/ Jenniffer [id number] Nick Oliva Self 07/13 - Unknown Advance Directives Includes: Current Advance Directives Directive Pat Aware Third Green Party Effective Date Reviewed [facility] Power of Manager Business Banking/Healthcare Surrogate Yes 08/08/2017 Current and Verified Clinical Notes Includes: Clinical Notes from this encounter No Clinical Notes Recorded
== END ==
LOC: HO.SL 20:30
PROVIDERS: PCP Hospitalist; Visit Provider Nurse Practitioner Family
DX: R40.0 Somnolence (principal); G47.33 Obstructive sleep apnea (adult) (pediatric); G47.34 Idiopathic sleep related nonobstructive alveolar hypoventilation
CPT/HCPCS: 95811

== ENCOUNTER → 2024-05-20 21:52 | Outpatient (BNV) | payer OTHER, SELFPAY | PROVIDERS: PCP Hospitalist; Visit Provider Internal Medicine | DX: G47.33 Obstructive sleep apnea (adult) (pediatric) (principal) | CPT/HCPCS: 95811 ==

== ENCOUNTER 2024-05-27 09:58 | Outpatient (AMB) | payer MEDICARE, OTHER, SELFPAY ==
--- NOTE | 2024-05-27 10:02 | MHC.PC.OV ---
Vital Signs 05/27/24 10:08 Height 5 ft 10 in Weight 183 lb 2 oz BMI 26.3 BP 122/54 L Blood Pressure Location Lt brachial Position Sitting Pulse 52 Pulse Source Pulse Oximeter Pulse Oximetry (%) 99 Oxygen Delivery Method Nasal Cannula Oxygen Flow Rate 2 Intake Visit Reasons: 30 minutes complex Intake Note: Follow up Investigation Clerk Required: No Allergies No Known Allergies Allergy (Verified 05/27/24 10:03) Medication List - Last Reconciled 05/27/24 by BETINA Salvador albuterol sulfate 90 mcg/actuation 2 puffs inhalation Q6H PRN dabigatran etexilate (Pradaxa) 150 mg PO BID diltiazem HCl ER 240 mg PO DAILY ezetimibe 10 mg PO DAILY fenofibrate nanocrystallized 48 mg PO DAILY mokioyppsyd-kpqucqelk-qzxmgqem 200-62.5-25 mcg (Trelegy Ellipta) 1 inh inhalation DAILY furosemide 20 mg PO DAILY PRN metoprolol succinate ER 50 mg PO DAILY omeprazole 20 mg PO DAILY primidone 50 mg PO TID quetiapine 150 mg PO BEDTIME sertraline 100 mg PO DAILY Tobacco use date assessed: 11/24/23 Dental Screening Dental Screen Date: 11/24/23 HPI HPI Comments History of Present Illness Details This is an 78-year-old male with an extensive past medical history significant for CKD stage 3, agent orange exposure, glaucoma, COPD with chronic respiratory failure requiring supplemental oxygen, depression with anxiety, hyperlipidemia, TIA, memory loss, paroxysmal atrial fibrillation, obstructive sleep apnea and periodic limb movement presenting for follow up. The patient is accompanied by his , Rosie Oliva. [facility] Since [facility] last visit she is managing his medications, and she said he is completely back to baseline. Upon investigating his med she found that he was taking all 3 primidone dosages at 1 time during the day. He was also either taking 1 metoprolol pill a day or taking 2 at the same time. There were other discrepancies between a how the medications were prescribed, and how he was taking them. He is alert. He is speaking normally. His color is better. The patient tells me he feels completely fine now. Dizzy spells resolved. He started in home physical therapy. His blood pressure today is 122/54. His heart rate is 52. There have been some fluctuations with home readings, but his blood pressure has been much better than his last office visit. MMSE score today is 26. Neurology referral is being processed. Patient says his rib pain from the fracture as a result of the recent fall is much better. He has not had to take any Tylenol. No cough or shortness of breath or hemoptysis. He also has been compliant with his supplemental oxygen. Denies dizziness, falls, chest pain, leg swelling. Cardiovascular-diagnosed in 2017 with paroxysmal atrial fibrillation. He had 2 ablations. The 2nd was successful. He does not have a Cardiology at the [place] because there is no cardiology provider there. He was referred to [facility] when I saw him for an initial visit. The appointment is not for a few months. I placed a new urgent referral, and this is being processed. Denies palpitations or chest pain. He had a TIA in ?2017. He is on atorvastatin, Pradaxa, diltiazem, Zetia, furosemide (as needed for edema), metoprolol (now extended release 50 mg tablet). Depression with anxiety-followed by Dr. Peñaloza. Tremor-taking primidone. Now being administered correctly. Patient is up-to-date with eye exams. He sees audiology for hearing loss. COPD/AMY- Established with [facility] pulmonology. On CPAP at night. ROS: Constitutional: No unexplained weight loss, fever, chills or night sweats or fatigue Respiratory: No increased shortness of breath or worsening cough Cardiovascular: No chest pain, chest pressure or chest discomfort. No palpitations . Gastrointestinal: No anorexia, nausea, vomiting or diarrhea. No abdominal pain or blood in stool. Neurologic: No seizures, tremor, numbness, headache. No dizziness, no syncope. Hematologic/Lymphatics: No bleeding or swollen glands Musculoskeletal: Pain due to rib fracture improved Psychiatric: No SI/HI. Physical exam: Constitutional: Alert, in no distress. Head: Normocephalic. Ears: External canals clear. TMs normal. Eyes: Pupils are equal, round and reactive to light. Extraocular muscles intact. Neck: Supple, Full range of motion. No lymphadenopathy. Respiratory: Clear to auscultation. Cardiovascular: S1 S2 regular. No murmurs. Neurologic: Moves extremities spontaneously. No focal deficits. Patient appears more alert. He is speaking normally today and answers questions appropriately. Extremities: Warm and well perfused. No lower extremity edema. Psychiatric: Normal mood and affect [facility] Medical History (Updated 05/14/24 @ 16:55 by BETINA Salvador) Hypertension Falls frequently Closed rib fracture Cognitive decline CKD stage 3a, GFR 45-59 ml/min Glaucoma GERD (gastroesophageal reflux disease) Agent orange exposure Bilateral hearing loss COPD (chronic obstructive pulmonary disease) Periodic limb movement Nocturnal hypoxemia Depression with anxiety TIA (transient ischemic attack) Neoplasm of skin Skin rash Memory loss Imbalance A-fib Hypercholesteremia Family History (Updated 11/24/23 @ 11:56 by Alannah Fernandez CMA) Mother Breast cancer Cardiovascular disease Social History Housing: House Patient Tobacco Use Status: Former Tobacco user Cigarette Packs Per Day: 1 Years Smoked: 40 service: Yes Current occupational status: retired Cognitive needs: No Hearing needs: Yes (Hearing loss) Vision needs: No Questionnaire Thrive Questionnaire Date Thrive assessed: 05/10/24 I am a: Patient What is your living situation today?: I have a steady place to live Within the past 12 months, did the food you bought not last and you didn't have the money to get more?: Never true Within the past 12 months, did you worry whether your food would run out before you got money to buy more?: Never true Do you have trouble paying for medicines?: No Do you have trouble getting transportation to medical appointments?: No Do you have trouble paying your heating and electricity bill?: No Do you have trouble taking care of your child, family member or friend?: No Do you have trouble with day-to-day activities such as bathing, preparing meals, shopping, managing finances, etc.?: No Are you currently unemployed and looking for a job?: No Are you interested in more education?: No Please select the resources that you would like help with: None Currently or been in a relationship where the following occur: No concerns reported THRIVE Score: 0 FAYE-7 AMB Questionnaire FAYE-7 Date FAYE - 7 assessed: 05/13/24 Source: Developed by Drs. Sherif Thomson, Tomasa Baker, Ishmael Alas and colleagues, with an educational aftab from [employer]. Physical exam (Primary Care) Vital Signs: Last Vital Signs Pulse 52 05/27/24 10:08 BP 122/54 L 05/27/24 10:08 Pulse Ox 99 05/27/24 10:08 Oxygen Delivery Method Nasal Cannula 05/27/24 10:08 Oxygen Flow Rate 2 05/27/24 10:08 BMI result Body Mass Index 26.3 Tobacco/Smoking Status: Tobacco use Status Tobacco use date assessed 11/24/23 05/27/24 10:11 Patient Tobacco Use Status Former Tobacco user 05/27/24 10:11 Thrive Assessment: Date of Thrive Assessment Date Thrive assessed 05/10/24 05/27/24 10:11 Currently or been in a relationship where the following occur: No concerns reported Coding Level of Care Code Est Pt Level 5 (46946) Complex EM visit Add On G2211 Diagnoses Cognitive decline R41.89 Depression with anxiety F41.8 Paroxysmal atrial fibrillation I48.0 Atrial fibrillation type: paroxysmal Simple chronic bronchitis J41.0 COPD type: chronic bronchitis Chronic bronchitis type: simple Obstructive sleep apnea G47.33 Closed rib fracture S22.39XA Falls frequently R29.6 Hypertension I10 Time Spent (min) 45 Comment Chart review, direct patient care, completing documentation Assessment & Plan Assessment & Plan (1) Cognitive decline: Code(s): R41.89 - Other symptoms and signs involving cognitive functions and awareness Category: Medical (2) Depression with anxiety: Code(s): F41.8 - Other specified anxiety disorders Category: Medical (3) A-fib: Code(s): I48.91 - Unspecified atrial fibrillation Category: Medical Qualifiers: Atrial fibrillation type: paroxysmal Qualified Code(s): I48.0 - Paroxysmal atrial fibrillation (4) COPD (chronic obstructive pulmonary disease): Code(s): J44.9 - Chronic obstructive pulmonary disease, unspecified Category: Medical Qualifiers: COPD type: chronic bronchitis Chronic bronchitis type: simple Qualified Code(s): J41.0 - Simple chronic bronchitis (5) Obstructive sleep apnea: Code(s): G47.33 - Obstructive sleep apnea (adult) (pediatric) Category: Medical (6) Closed rib fracture: Code(s): S22.39XA - Fracture of one rib, unspecified side, initial encounter for closed fracture Category: Medical (7) Falls frequently: Code(s): R29.6 - Repeated falls Category: Medical (8) Hypertension: Code(s): I10 - Essential (primary) hypertension Category: Medical Plan In summary this is an 78-year-old male with improved mentation and no further falls or dizziness since compliance with home oxygen and his medication regimen which is now being managed by his . [facility] did reach out to his , but she feels comfortable helping with medication management at this time. Neurology referral is being process. He does still need to follow up with Cardiology, and I advised his to contact the office if they do not received the letter about this in 1-2 weeks. Diastolic blood pressure and heart rate are a little low today, but some of his home readings are higher so since he is not symptomatic he will continue the current regimen for now. Proceed with physical therapy for strengthening and gait coordination. No further analgesia needed for rib fracture. Follow up in 8 weeks for re-evaluation.
[2024-05-27 10:08] VITALS: BP 122/54; PULSE 52; O2SAT 99; BMI 26.3
--- OUTSIDE RECORDS SUMMARY | 2024-05-27 10:37 | XMS_ITS ---
Care Plan - [facility] Created on: May 27, 2024 Nick Oliva : 1945 Sex: Male Author Organization [facility] Address [address] [place] [address] Phone Care Team Providers Care Line Construction Supervisor Name Role Phone & Sports Medicine, [facility] Unavailable + [phone] Kenney PARK MD, Christ Hernandez Unavailable [phone] Leti CUELLO, Maryan Rose Unavailable [phone] Junaid CUELLO, Bora Unavailable [phone] Andres CUELLO, Narendra Primary Care Provider [phone] Florecita CUELLO, Deni Unavailable [phone] Arturo TALBOT, Gloria Camargo Unavailable [phone] Edita CUELLO, Martinez Unavailable [phone] Cathy CUELLO, Sylvester Penaloza Unavailable + [phone] Smiley Calderon Unavailable [phone] Valery CUELLO, Dane Unavailable [phone] Colton Guardado MD Unavailable [phone] [place] Mistry DO Unavailable [phone] Kay CUELLO, Merle Unavailable [phone]
--- OUTSIDE RECORDS SUMMARY | 2024-05-27 10:37 | XMS_ITS | Clinical Summary ---
Author Organization [facility] Address [address] [place] [address] Phone Care Team Providers Care Broke Handler Name Role Phone & Sports Medicine, [facility] Unavailable [phone] Kenney PARK MD, Christ Hernandez Unavailable [phone] Leti CUELLO, Maryan Rose Unavailable [phone] Junaid CUELLO, Bora Unavailable [phone] Andres CUELLO, Narendra Primary Care Provider [phone] Deni Bernabe MD Unavailable [phone] Gloria Morris PA-C Unavailable [phone] Edita CUELLO, Martinez Unavailable [phone] Cathy CUELLO, Sylvester Penaloza Unavailable + [phone] Smiley Calderon Unavailable [phone] Dane Rasmussen MD Unavailable [phone] Colton Guardado MD Unavailable [phone] [place] DO Unavailable [phone] Kay CUELLO, Merle Unavailable [phone] Reason for Visit and Chief Complaint [Patient Encounter] Problems Includes: Problems addressed during this encounter and other active Problems All Visits Onset Date Resolved Date Provider Condition S tatus 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 06/25/2021 Gloria Odioso Arturo PA-C Active Last Documented On 04/02/2022 10:30AM ; [facility] Note: 50-69% left, non surgical in [address] gar, repeat in one year Diabetes Mellitus Type 2 with Complication 06/25/2021 Gloria MOFFETT-C Active Last Documented On 2 10:45AM ; [facility] Chronic Respiratory Failure 07/04/2020 Narendra miramontes MD Active Last Documented On 07/04/2020 11:28AM ; [facility] Note: on continuous home oxygen Coronary Artery Disease 04/21/2019 Jessica Mony yarbrough EDUCATION RN Active Last Documented On 0 8:03AM ; [facility] Atherosclerosis Coronary Art maryann with Angina Pectoris 01/15/2019 Gloria MOFFETT-C Active Last Documented On 9 9:21AM ; [facility] Edema 01/14/2019 Philip BECKER Active Last Documented On 9 2:52PM ; [facility] 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 Gloria MOFFETT-C Active Last Documented On 9 8:57AM ; [facility] Note: per pulm notedECHO with 45-50%, mi ldly reduced LVSF 06/2017 Osteoarthritis Localized Primary Knees Bilateral 04/03/2018 Juany loyola PA-C Active Last Documented On 8 11:45AM ; [facility] 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 Narendra Campos MD Active Last Documented On 8 11:49AM ; [facility] Colon Polyps 06/20/2017 Martinez Kohler MD Active Last Documented On 8 11:24AM ; [facility] Atrial Fibrillation 10/10/2015 Narendra Campos MD Active Last Documented On 6 9:16AM ; [facility] Note: s/p ablation Chronic Obstructive Pulmonary Disease 11/29/2013 Narendra Campos MD Active Last Documented On 4 2:43PM ; [facility] Post-traumatic Stress Disorder 11/29/2013 Jt Campos MD Active Last Documented On 4 10:39AM ; [facility] Patellar Chondromalacia 03/02/2013 Narendra baltazar MD Active Last Documented On 4 7:42AM ; [facility] Note: Unchanged Asthma 09/04/2012 Narendra Campos MD Activ e Last Documented On 4 7:42AM ; [facility] Atherosclerosis Aorta 03/26/2012 Narendra mendez MD Active Last Documented On 4 7:42AM ; [facility] Note: on ct scan Rhinitis 08/04/2009 Narendra Campos MD Activ e Last Documented On 4 7:42AM ; [facility] Note: Unchanged Esophagitis Chronic Reflux 07/28/2009 Gloria Morris PA-C Active Last Documented On 4 2:20PM ; [facility] Note: Unchanged Hypertension Systemic 07/28/2009 Norma PANDEY Active Last Documented On 0 6:29PM ; [facility] Note: Unchanged Colonic Diverticulosis 10/06/2007 Narendra oconnor MD Active Last Documented On 4 7:42AM ; [facility] Note: Unchanged Hyperlipidemia Mixed 10/06/2007 Narendra gomez MD Active Last Documented On 4 7:42AM ; [facility] Note: Unchanged Plan of Treatment Pending Tests Order Diagnosis Results Due Ordering P rovider [employer] Paroxysmal atria l fibrillation 05/18/21 Colton Guardado MD Last Documented On 2 4:50PM ; [facility] [employer] Palpitations 05/25/21 Colotn Garcia MD Last Documented On 2 5:47AM ; [facility] Care Programs Check if Patient is Eligible for CCM Services Last Documented On 8 12:04AM ; [facility] Future Tests Order Diagnosis Results Due Ordering Pr ovider Cardiology Studies Tilt Table Test [place] heart disease [place] coronary artery w/o [facility] 10/27/19 Colton Guardado MD Last Documented On 0 3:58PM ; [facility] Cardiology Studies Nuclear Stress Test [place] heart [place] coronary artery w/o [facility] 10/27/19 Colton Guardado MD Last Documented On 0 3:59PM ; [facility] Studies Echocardiogram [place] heart [place] coronary artery w/o [facility] 10/27/19 Colton Guardado MD Last Documented On 0 3:59PM ; [facility] Cardiology Studies Echocardiogram Paroxysmal at rial fibrillation 02/25/22 Colton Guardado MD Last Documented On 2 12:04PM ; [facility] Assessments Includes: Assessments from this [...] 0 refills Diagnosis: 1 once daily Pharmacy: [facility] - [id number], [id number] - Last Documented On 4 10:28AM By Neo Lovelace ; [facility] Current Medications (continue as prescribed) Trelegy Ellipta 100-62.5-25 MCG/ACT Inhalation Aerosol Powder Breath Activated 05/13/2023 Provider: Shubham Patel APRN Diagnosis: Chronic obstruct ana m pulmonary disease, unspecified 1 puff qd Last Documented On 4 2:24PM By Shubham Patel APRN ; [facility] Albuterol Sulfate HFA 108 (9 0 Base) MCG/ACT Inhalation Aerosol Solution 05/13/2023 Provider: Brittany Patel APRN Diagnosis: Shortness of tristin ath 2 puffs q4h prn Last Documented On 4 2:24PM By Shubham Patel APRN ; [facility] Levocetirizine Dihydrochlori de 5 MG Oral Tablet 05/13/2023 Provider: Shubham Patel APRN Diagnosis: Allergic rhiniti s, unspecified 1 once daily Last Documented On 4 2:24PM By Shubham Patel APRN ; [facility] Albuterol Sulfate HFA 108 (90 Base) MCG/ACT Inhalation Aerosol Solution 07/19/2022 Provider: Frannie Guidry DNP ALLERGY PHYSICIAN-BC Diagnosis: Shortness of tristin ath 2 puffs q4h prn Last Documented On 3 9:03AM By Frannie Garrison APRN ; [facility] Oxygen Inhalation Gas 04/02/2022 Provider: Diagnosis: Last Documented On 2 10:09AM By Gloria Morris PA-C ; [facility] Atorvastatin Calcium 80 MG Oral Tablet 02/20/2021 Provider: Gloria Briscoe Diagnosis: Mixed hyperlipid emia 1 once daily Last Documented On 2 9:52AM By Arlette Aj ; [facility] hydrALAZINE HCl 25 MG OR TABS 12/29/2020 Provider: Colton Guardado MD Diagnosis: every 8 hours as needed for for BP over 160 Last Documented On 2 9:53AM By Arlette Aj ; [facility] Metoprolol Succinate ER 50 M G Oral Tablet Extended Release 24 Hour 07/14/2020 Provider: Diagnosis: Last Documented On 1 4:45AM By Jessica BECKER ; [facility] Furosemide 20 MG OR TABS 06/24/2019 Provider: Keegan Guardado MD Diagnosis: 1 once daily Last Documented On 1 11:14AM By Aleah Cerda ; [facility] Fluticasone Propionate 50MCG/ACT Nasal Suspension 02/19/2019 Provider: Gloria Morris PA-C Diagnosis: Chronic sinusiti s, unspecified use as directed 2 sprays eac h nare daily Last Documented On 9 8:23AM By Savita Caal ; [facility] Primidone 50 MG OR TABS 10/13/2018 Provider: Supriya Lombardo DO Diagnosis: Tremor, unspecif ied 3po q HS Last Documented On 9 8:22AM By Savita Caal ; [facility] Sertraline HCl 100MG Oral Tablet 09/07/2017 Provider : Diagnosis: Last Documented On 8 2:34PM By Colton Guardado M.D. ; [facility] Aspirin EC Low Dose 81MG Oral Tablet Delayed Release 0 07/11/2016 Provider: Diagnosis: Last Documented On 7 4:19PM By Colton Guardado M.D. ; [facility] Pradaxa 150MG Oral Capsule 07/11/2016 Provider: Diagnosis: Last Documented On 7 4:15PM By Colton Guardado M.D. ; [facility] Temazepam 15 MG OR CAPS 07/20/2014 Provider: Janay Morris PA-C Diagnosis: Long-term use of high-risk meds. 1-2 qHS prn. Last Documented On 5 11:02AM By Gloria Morris PA-C ; [facility] Medications Administered Includes: Administered Medications [...] Active Last Documented On 06/16/2023 2:04PM ; [facility] Note: facial lip swelling listaprill Allergy swollen 07/13/2020 Active Last Documented On 4 2:04PM ; [facility] Encounters Encounter Provider Location Date Check-In Time Check-Out Time Diagnosis [Patient Encounter] Colton Guardado MD 4 9:58AM 11:59PM Insurance Includes: Active Insurance Policies Plan Name Member ID Group # Subscriber Relationship Effect ana m Dates 1 - Medicare Part B [id number] Nick Oliva Self 2 - [employer]/ [employer] [id number] Nick Oliva Self 07/13 - Unknown Advance Directives Includes: Current Advance Directives Directive Pat Aware Third Alliance Party Effective Date Reviewed [facility] Power of Greeter/Healthcare Surrogate Yes 08/08/2017 Current and Verified Clinical Notes Includes: Clinical Notes from this encounter No Clinical Notes Recorded
--- OUTSIDE RECORDS SUMMARY | 2024-05-27 10:37 | XMS_ITS | Continuity of Care Document ---
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 It does not include entries that were removed or entered in error. Problem Status Onset Date Problem Type Date of Resolution Comments Source Bilateral hearing loss Active Condition [facility] CAD - Coronary Artery Disease (SCT 44826927) Active Condition [facility] Chronic hypoxemic respiratory failure Active Condition [facility] obstructive lung disease [facility] CKD stage 3 Active Condition [facility] Cognitive decline Active Condition [facility] COPD - Chronic obstructive pulmonary disease Active Condition Aug 08, 2023 Entered By: TYLER ARBOLEDA A Comment: 2 L O2 dependent 04/11 [facility] Dementia Active Condition [facility] Depressive disorder (SNOMED CT 98984533) Active Condition [place] [facility] Essential tremor Active Condition [facility] FAY[facility] - Generalised anxiety disorder Active Condition [facility] GERD - Gastro-Esophageal Reflux Disease (SCT 445424313) Active Condition [facility] Glaucoma Active Condition [facility] Hearing Loss, Bilateral Active Condition [facility] History of male erectile disorder Active Condition [place] [facility] Hyperlipidemia [facility] Hypertriglyceridaemia Active Condition [facility] Insomnia Active Condition [facility] Long-term current use of anticoagulant Active Condition [facility] [place]'s granuloma Active Condition [facility] Obstructive sleep apnea Active Condition [facility] Obstructive sleep apnea syndrome Active Condition Feb 14, 2017 Entered By: JULIANA MAST Comment: Autopap [id number] p 2018 Entered By: JAVI YOUNG Comment: NASAL PILLOWS [facility] PAF - Paroxysmal atrial fibrillation Active Condition Aug 08, 2023 Entered By: TYLER ARBOLEDA Comment: s/p ablation x2 [facility] PAF - Paroxysmal atrial fibrillation [facility] Paroxysmal atrial fibrillation Active Condition Jan 25, 2016 Entered By: JEFFERSON MORROW Comment: ablation - 10/2015 [facility] Posttraumatic stress disorder, delayed onset (SNOMED CT 423550802) Active Condition [facility] PTSD - Post-traumatic stress disorder Active Condition [facility] TIA - transient ischemic attack [facility] Asthma, unspecified Inactive Condition 08/09/2019 [facility] Cold sore Inactive Condition 01/25/2016 [facility] Dizziness Inactive Condition 08/11/2018 [facility] Glaucoma suspect Inactive Condition 07/04/[address] [place] [address] Glaucoma, Suspect (ICD-9-CM 365.00) Inactive Condition 06/23/[address] [facility] Hyperlipidemia Inactive Condition 08/09/2019 [facility] Inactive Condition 06/23/2015 [facility] Diagnosis: ICD-10-CM F43.10 Post-traumatic stress disorder, unspecified Active Diagnosis [facility] Diagnosis: ICD-10-CM Z46.1 Encounter for fitting and adjustment of hearing aid [facility] Diagnosis: ICD-10-CM Z79.01 nursing home (current) use of anticoagulants Active Diagnosis [facility] Diagnosis: ICD-10-CM F03.B4 Unspecified dementia, moderate, with anxiety Active Diagnosis [facility] Diagnosis: ICD-10-CM 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, right eye, mild stage Active Diagnosis [facility] Diagnosis: ICD-10-CM H40.1421 Capslr glaucoma w/pseudxf lens, left eye, mild stage Active Diagnosis [facility] [place] [facility] Diagnosis: ICD-10-CM R41.3 Other amnesia Active Diagnosis [facility] [place] [facility] Diagnosis: ICD-10-CM H40.1412 Capslr glaucoma w/pseudxf lens, right eye, moderate stage Active Diagnosis [facility] [place] [facility] Diagnosis: ICD-10-CM J96.11 Chronic respiratory failure with hypoxia Active Diagnosis [facility] Diagnosis: ICD-10-CM K03.6 Deposits [accretions] on teeth Active Diagnosis [facility] [place] [facility] Diagnosis: ICD-10-CM I48.20 Chronic atrial fibrillation, unspecified Active Diagnosis [facility] Diagnosis: ICD-10-CM F43.12 Post-traumatic stress disorder, chronic Active Diagnosis [place] Diagnosis: ICD-10-CM K08.531 Fractured dental restorative material with loss of material Active Diagnosis [facility] [place] [facility] Diagnosis: ICD-10-CM L92.0 Granuloma annulare Active Diagnosis [facility] Diagnosis: ICD-10-CM Z13.89 Encounter for screening for other disorder Active Diagnosis [place] Diagnosis: ICD-10-CM I48.0 Paroxysmal atrial fibrillation Active Diagnosis [facility] Diagnosis: ICD-10-CM Z71.89 Other specified counseling Active Diagnosis [place] Diagnosis: ICD-10-CM Z13.6 Encounter for screening for cardiovascular disorders Active Diagnosis [facility] Diagnosis: ICD-10-CM J44.9 Chronic obstructive pulmonary disease, unspecified Active Diagnosis [facility] Diagnosis: ICD-10-CM R68.89 Other general symptoms and signs Active Diagnosis [facility] Diagnosis: ICD-10-CM L30.8 Other specified dermatitis Active Diagnosis [facility] Diagnosis: ICD-10-CM Z23 Encounter for immunization Active Diagnosis [facility] Diagnosis: ICD-10-CM H40.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, high risk, bilateral Active Diagnosis [address] [place] [address] Medications Combined list of outpatient medications from [...] [facility] RESPIR ATORY (INHAL ATION) ACTIVE 08/07/2024 [id number] 4 Connor ARBOLEDA AVID A 2023 2 [place] ATORVASTATI N CA 80MG TAB TAKE ONE-HALF TABLET BY MOUTH EVERY DAY FOR CHOLESTE ROL ORAL ACTIVE 06/30/2024 [id number] 4 Narendra MORROW ISHORE 2023 45 [facility] ATORVASTATI N CA 80MG TAB TAKE ONE TABLET BY MOUTH ONCE DAILY FOR HIGH CHOLESTE ROL ORAL DISCONT INUED BY PROVIDE R 08/08/2024 [id number] 4 Connor ARBOLEDA AVID A 2023 90 [place] ATORVASTATI N CA 80MG TAB TAKE ONE-HALF TABLET BY MOUTH EVERY DAY FOR CHOLESTE ROL ORAL DISCONT INUED 07/05/2023 [id number] 4 Narendra MORROW [place] 2022 45 [facility] BRIMONIDINE TARTRATE 0.2% SOLN,OPH INSTILL 1 DROP INTO THE RIGHT EYE TWICE DAILY FOR GLAUCOMA OPHTHA LMIC ACTIVE 01/01/2025 [id number] 4 JOSE GREENE [address] [facility] BRIMONIDINE TARTRATE 0.2% SOLN,OPH INSTILL 1 DROP INTO RIGHT EYE EVERY MORNING FOR GLAUCOMA OPHTHA LMIC DISCONT INUED 09/27/2023 [id number] 3 PEGGY ANDERSON SA [address] [place] [address] BRIMONIDINE TARTRATE 0.2% SOLN,OPH INSTILL 1 DROP INTO THE RIGHT EYE EVERY MORNING FOR INCREASE D PRESSURE IN THE EYE FOR GLAUCOMA OPHTHA LMIC DISCONT INUED (EDIT) 11/14/2024 [id number] 4 JOSE GREENE 2023 10 [facility] BRIMONIDINE TARTRATE 0.2% SOLN,OPH INSTILL 1 DROP INTO RIGHT EYE EVERY MORNING FOR GLAUCOMA OPHTHA LMIC 03/28/2024 [id number] 4 MONICAPEGGY Pineda [address] [place] [address] CARBOXYMETH YLCELLULOSE NA 0.5% SOLN,OPH INSTILL 1 DROP INTO EACH EYE FOUR TIMES A DAY FOR DRY EYE OPHTHA LMIC ACTIVE 11/14/2024 [id number] 4 JOSE GREENE 2023 15 [facility] DABIGATRAN ETEXILATE 150MG CAP,ORAL TAKE ONE CAPSULE BY MOUTH TWICE DAILY TO PREVENT BLOOD CLOTS (ONCE OPENED, THE MEDICATI ON MUST BE USED WITHIN 4 MONTHS) ORAL ACTIVE 08/13/2024 [id number] 4 Connor ARBOLEDAD A 2023 180 [place] DABIGATRAN ETEXILATE 150MG CAP,ORAL TAKE ONE CAPSULE BY MOUTH TWICE A DAY TAKE WITH A FULL GLASS OF WATER,TO PREVENT BLOOD CLOTS ORAL DISCONT INUED BY PROVIDE R 08/20/2023 [id number] 4 IAN AYALA [address] [facility] DILTIAZEM (EQV-CARDIZ EM AB3) 240MG 24HR CAP TAKE ONE CAPSULE BY MOUTH ONCE DAILY FOR ATRIAL FIBRILLA TION ORAL ACTIVE 08/07/2024 [id number] Connor ARBOLEDAD A 2023 90 [place] DOXYCYCLINE HYCLATE 100MG TAB TAKE ONE TABLET BY MOUTH TWICE DAILY UPPER RESPIRAT ORY INFECTIO N ORAL 11/29/2023 [id number] 4 Connor ARBOLEDAD A 2023 14 [place] EZETIMIBE 10MG TAB TAKE ONE TABLET BY MOUTH ONCE DAILY TO LOWER CHOLESTE ROL ORAL ACTIVE 08/07/2024 [id number] 4 Connor ARBOLEDA AVID A 2023 90 [place] FENOFIBRATE 48MG TAB TAKE ONE TABLET BY MOUTH ONCE DAILY FOR HIGH CHOLESTE ROL ORAL ACTIVE 02/26/2025 [id number] Connor ARBOLEDA AVID A 2023 90 [place] FUROSEMIDE 20MG TAB TAKE ONE TABLET BY MOUTH ONCE DAILY NEEDED FOR VISIBLE WATER RETENTIO N TO REMOVE FLUID/CO NTROL BLOOD PRESSURE ORAL ACTIVE 08/08/2024 [id number] 4 Connor ARBOLEDA AVID A 2023 90 [place] FUROSEMIDE 20MG TAB TAKE ONE TABLET BY MOUTH EVERY MORNING ORAL ACTIVE Narendra MORROWORE 2019 [facility] KETOCONAZOL E 2% SHAMPOO USE SMALL AMOUNT ON SCALP FRI,FRI AND FRIDAY SEBORRHE IC DERMATIT IS LATHER, APPLY TO SCALP, LEAVE ON FOR 5 MINUTES, THEN WASH OFF. DO THIS THREE TIMES PER WEEK. LATHER, APPLY TO SCALP, LEAVE ON FOR 5 MINUTES, THEN WASH OFF. DO THIS THREE TIMES PER WEEK. TOPICA L 03/31/2024 [id number] 4 Javad [place] 2022 120 [facility] LATANOPROST 0.005% SOLN,OPH INSTILL 1 DROP INTO EACH EYE AT BEDTIME FOR INCREASE D PRESSURE IN THE EYE OPHTHA LMIC ACTIVE 11/14/2024 [id number] 4 JOSE GREENE 2023 7.5 [facility] [place] [facility] LATANOPROST 0.005% SOLN,OPH INSTILL 1 DROP INTO BOTH EYES AT BEDTIME FOR GLAUCOMA OPHTHA LMIC 09/27/2023 [id number] 4 PEGGY ANDERSON SA S [address] [place] [address] METOPROLOL SUCCINATE 50MG TAB,SA TAKE ONE TABLET BY MOUTH ONCE DAILY FOR BLOOD PRESSURE /HEART ORAL ACTIVE 08/08/2024 [id number] Connor ARBOLEDAD A 2023 90 [place] METOPROLOL TARTRATE 50MG TAB TAKE ONE-HALF TABLET BY MOUTH TWICE A DAY FOR HEART AND BLOOD PRESSURE ORAL ACTIVE 06/30/2024 [id number] 4 Narendra MORROWORE 2023 90 [facility] METOPROLOL TARTRATE 50MG TAB TAKE ONE-HALF TABLET BY MOUTH TWICE A DAY FOR HEART AND BLOOD PRESSURE ORAL DISCONT INUED 07/05/2023 [id number] 4 Narendra MORROWORE 2022 90 [facility] OMEPRAZOLE 20MG CAP,EC TAKE ONE CAPSULE BY MOUTH EVERY MORNING 30 MINUTES BEFORE BREAKFAS T FOR GASTROES OPHAGEAL REFLUX DISEASE ORAL ACTIVE 08/08/2024 [id number] 4 Connor ARBOLEDA AVID A 2023 90 [place] OMEPRAZOLE 20MG CAP,EC TAKE ONE CAPSULE BY MOUTH EVERY DAY FOR STOMACH ORAL ACTIVE 06/30/2024 [id number] 4 Narendra MORROW ISHORE 2023 90 [facility] OMEPRAZOLE 20MG CAP,EC TAKE ONE CAPSULE BY MOUTH EVERY DAY FOR STOMACH ORAL DISCONT INUED 07/05/2023 [id number] 4 Narendra MORROW 2022 90 [facility] PRAZOSIN HCL 2MG CAP TAKE TWO CAPSULES BY MOUTH AT BEDTIME FOR NIGHTMAR ES ORAL 03/29/2023 [id number] 3 Shaila EDWARD N 2022 180 [facility] PRIMIDONE 50MG TAB TAKE ONE TABLET BY MOUTH ONCE DAILY FOR SIMPLE SEIZURE ORAL ACTIVE 08/08/2024 [id number] 4 Connor ARBOLEDAD A 2023 90 [facility] IELD PRIMIDONE 50MG TAB TAKE ONE TABLET BY MOUTH THREE TIMES A DAY FOR TREMORS ORAL ACTIVE 06/30/2024 [id number] 4 Narendra MORROW 2023 270 [facility] PRIMIDONE 50MG TAB TAKE ONE TABLET BY MOUTH THREE TIMES A DAY FOR TREMORS ORAL DISCONT INUED 07/05/2023 [id number] 4 Narendra MORROW 2022 270 [facility] QUETIAPINE FUMARATE 100MG TAB TAKE ONE TABLET BY MOUTH AT BEDTIME FOR MOOD AND PTSD ORAL ACTIVE 05/27/2025 [id number] Edwin HERNANDEZ G 2024 90 [place] QUETIAPINE FUMARATE 100MG TAB TAKE ONE TABLET BY MOUTH AT BEDTIME FOR MOOD AND PTSD ORAL DISCONT INUED (EDIT) 04/29/2025 [id number] Edwin HERNANDEZ G 2024 30 [place] QUETIAPINE FUMARATE 100MG TAB TAKE ONE TABLET BY MOUTH AT BEDTIME FOR ANXIETY ORAL 11/29/2023 [id number] Connor ARBOLEDA A 2023 30 [place] QUETIAPINE FUMARATE 200MG TAB TAKE ONE-HALF TABLET BY MOUTH AT BEDTIME FOR ANXIETY ORAL 04/23/2024 [id number] 4 Shaila EDWARD N 2023 15 [facility] QUETIAPINE FUMARATE 50MG TAB TAKE ONE-HALF TABLET BY MOUTH AT BEDTIME FOR ANXIETY ORAL DISCONT INUED (EDIT) 03/25/2024 [id number] 4 Shaila EDWARD N 2022 15 [facility] SERTRALINE HCL 100MG TAB TAKE ONE TABLET BY MOUTH ONCE DAILY FOR POSTTRAU MATIC STRESS SYNDROME ORAL ACTIVE 08/08/2024 [id number] Connor ARBOLEDA A 2023 90 [facility] IELD SERTRALINE HCL 100MG TAB TAKE TWO TABLETS BY MOUTH EVERY DAY FOR DEPRESSI ON ORAL 03/29/2023 [id number] 3 Shaila EDWARD N 2022 180 [facility] TEMAZEPAM 7.5MG CAP TAKE ONE CAPSULE BY MOUTH AT BEDTIME NEEDED FOR SLEEP ORAL DISCONT INUED 03/27/2023 [id number] 3 Shaila EDWARD N 2022 30 [facility] TRAZODONE HCL 100MG TAB TAKE TWO TABLETS BY MOUTH AT BEDTIME FOR INSOMNIA ASSOCIAT ED WITH DEPRESSI ON ORAL DISCONT INUED BY PROVIDE R 01/21/2025 [id number] Edwin HERNANDEZ G 2023 180 [place] TRAZODONE HCL 100MG TAB TAKE 1/2 - 1 TABLET BY MOUTH AT BEDTIME NEEDED FOR INSOMNIA ASSOCIAT ED WITH DEPRESSI ON ORAL DISCONT INUED (EDIT) 11/13/2024 [id number] 4 Edwin HERNANDEZ G 2023 30 [place] UMECLIDINIU M/VILANTERO L INHALER INHL,ORAL USE BY INHALATI ON EVERY DAY RESPIR ATORY (INHAL ATION) ACTIVE Narendra MORROW ISHORE 2019 [facility] Allergies, Adverse Reactions, Alerts Combined list of allergies from Department of Defense and Veterans Affairs facilities. It does not include entries that were removed or entered in error. Substance Category Reaction Severity Reaction type Status Date Reported Comments Source ATORVASTATIN Propensity to adverse reactions to drug (finding) Muscle pain MODERATE active 4 [facility] LISINOPRIL Propensity to adverse reactions to drug (finding) Angioedema active 0 [facility] LISINOPRIL Propensity to adverse reactions to drug (finding) Swelling active 4 [facility] Immunizations Combined list of available immunizations from the Department of Defense and Veterans Affairs facilities. 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 Status Comments Source COVID-19 (MODERNA), MRNA, LNP-S, PF, 50 MCG/0.5 ML (AGES 12+ YEARS) 2023 ANDERSON BRUNOL E R RIGHT DELTO ID [id number] 312 complet ed [facility] INFLUENZA, HIGH-DOSE, TRIVALENT, PF 2023 DAMIONEMELY E R LEFT DELTO ID [id number] 135 complet ed [facility] INFLUENZA, INJECTABLE, QUADRIVALENT, PRESERVATIVE FREE 2022 JIMMY FOOTE RIGHT DELTO ID [id number] A 150 complet ed [facility] RSV, BIVALENT, PROTEIN SUBUNIT RSVPREF, DILUENT RECONSTITUTED , 0.5 ML, PF 2022 JIMMY FOOTE LEFT DELTO ID [id number] 305 complet ed diluent lot#[id number] exp: 06/08 [facility] INFLUENZA, UNSPECIFIED FORMULATION 2022 88 complet ed [facility] INFLUENZA, SEASONAL, INJECTABLE 2021 141 complet ed [facility] INFLUENZA VACCINE, QUADRIVALENT, ADJUVANTED 1 2021 205 complet ed [facility] COVID-19 (MODERNA), MRNA, LNP-S, PF, 100 MCG OR 50 MCG DOSE 3 2020 207 complet ed MOD; [id number]; 2 [facility] COVID-19 (MODERNA), MRNA, LNP-S, PF, 100 MCG/0.5ML DOSE OR 50 MCG/0.25ML DOSE [address] [facility] INFLUENZA, RECOMBINANT, QUADRIVALENT, INJECTABLE, PRESERVATIVE FREE 1 2020 185 complet ed [facility] ZOSTER RECOMBINANT 2 2020 187 complet ed [facility] ZOSTER RECOMBINANT 1 2020 187 complet [facility] COVID-19 (MODERNA), MRNA, LNP-S, PF, 100 MCG/0.5 ML DOSE 2 2020 207 complet ed [facility] COVID-19 (MODERNA), MRNA, LNP-S, PF, 100 MCG/0.5 ML DOSE 1 2020 207 complet ed [facility] COVID-19 (MODERNA), MRNA, LNP-S, PF, 100 MCG/0.5ML DOSE OR 50 MCG/0.25ML DOSE 1 2020 207 complet ed [facility] INFLUENZA, UNSPECIFIED FORMULATION 2019 88 complet ed [facility] INFLUENZA, SEASONAL, INJECTABLE 2019 141 complet ed [facility] INFLUENZA, INJECTABLE, QUADRIVALENT, PRESERVATIVE FREE 1 2019 150 complet ed [facility] INFLUENZA, UNSPECIFIED FORMULATION 2018 88 complet ed [facility] INFLUENZA, UNSPECIFIED FORMULATION 2017 88 complet ed [facility] INFLUENZA, SEASONAL, INJECTABLE 2016 141 complet ed [employer] [facility] TDAP 1 2016 115 complet ed [facility] INFLUENZA, UNSPECIFIED FORMULATION 2015 88 complet ed [employer] [facility] INFLUENZA, HIGH DOSE SEASONAL 1 2015 135 complet ed [facility] INFLUENZA, UNSPECIFIED FORMULATION 2014 88 complet ed BIO CSL [facility] ZOSTER LIVE 2014 121 complet ed [facility] TDAP 2014 115 complet ed [facility] INFLUENZA, UNSPECIFIED FORMULATION 2014 88 complet ed [facility] PNEUMOCOCCAL CONJUGATE PCV 13 1 2014 133 complet ed [facility] INFLUENZA, UNSPECIFIED FORMULATION 2012 88 complet ed [employer] [facility] INFLUENZA, UNSPECIFIED FORMULATION 2011 88 complet ed [facility] INFLUENZA, UNSPECIFIED FORMULATION 2009 88 complet ed [facility] INFLUENZA, UNSPECIFIED FORMULATION 2008 88 complet ed [facility] PNEUMOCOCCAL, UNSPECIFIED FORMULATION 2008 109 complet ed [facility] PNEUMOCOCCAL POLYSACCHARID E PPV23 2008 33 complet ed [facility] [place] [facility] TD(ADULT) UNSPECIFIED FORMULATION 2008 139 complet ed per patient [facility] INFLUENZA, UNSPECIFIED FORMULATION 2007 88 complet ed [facility] Results Combined list of recent chemistry, hematology [...] August 17, 2023 01:25 PM Reporting Lab: [facility] [address] [address] Performing [facility]: [facility] [address] [address] [place] MICROALB UMIN CREATINI NE RATIO PANEL MICROALBUM IN [MASS/VOLU ME] IN URINE < 0.5mg/dL 11/06 Specimen Type: URINE No comment entered. Ordering Provider: TYLER ARBOLEDA A Report Released Date/Time: August 17, 2023 01:25 PM Reporting Lab: [facility] [address] [address] [facility]forming Lab: [facility] [address] [address] [place] MICROALB UMIN CREATINI NE RATIO PANEL CREATININE [MASS/VOLU ME] IN URINE 128.85 mg/dL 11/06 Specimen Type: URINE No comment entered. Ordering Provider: TYLER ARBOLEDA A Report Released Date/Time: August 17, 2023 01:25 PM Reporting Lab: [facility] [address] [address] Performing Lab: [facility] [address] [address] [place] URINALYS IS COLOR OF URINE Yellow 11/06 Specimen Type: URINE Comment: If Glucose = >500 and Ketones are positive, please alert the Physician. Ordering Provider: TYLER ARBOLEDA A Report Released Date/Time: August 17, 2023 01:25 PM Reporting Lab: [facility] [address] [address] Performing Lab: [facility] [address] [address] [place] URINALYS IS APPEARANCE OF URINE Turbid 11/06 Specimen Type: URINE Comment: If Glucose = >500 and Ketones are positive, please alert the Physician. Ordering Provider: TYLER ARBOLEDA A Report Released Date/Time: August 17, 2023 01:25 PM Reporting Lab: [facility] [address] [address] Performing Lab: [facility] [address] [address] [place] URINALYS IS GLUCOSE [MASS/VOLU ME] IN URINE NEGATIVE mg/dL 11/06 Specimen Type: URINE Comment: If Glucose = >500 and Ketones are positive, please alert the Physician. Ordering Provider: TYLER ARBOLEDA A Report Released Date/Time: August 17, 2023 01:25 PM Reporting Lab: [facility] [address] [address] Performing Lab: [address] [address] [place] URINALYS IS KETONES [MASS/VOLU ME] IN URINE BY TEST STRIP NEGATIVE mg/dL 11/06 Specimen Type: URINE Comment: If Glucose = >500 and Ketones are positive, please alert the Physician. Ordering Provider: TYLER ARBOLEDA A Report Released Date/Time: August 17, 2023 01:25 PM Reporting Lab: [facility] [address] [address] Performing Lab: [address] [address] [place] URINALYS IS ERYTHROCYT ES [PRESENCE] IN URINE SEDIMENT BY LIGHT MICROSCOPY NEGATIVE mg/dL 11/06 Specimen Type: URINE Comment: If Glucose = >500 and Ketones are positive, please alert the Physician. Ordering Provider: TYLER ARBOLEDA A Report Released Date/Time: August 17, 2023 01:25 PM Reporting Lab: [address] [address] Performing Lab: [address] [address] [place] URINALYS IS PROTEIN [MASS/VOLU ME] IN URINE BY TEST STRIP NEGATIVE mg/dL 11/06 Specimen Type: URINE Comment: If Glucose = >500 and Ketones are positive, please alert the Physician. Ordering Provider: TYLER ARBOLEDA A Report Released Date/Time: August 17, 2023 01:25 PM Reporting Lab: [facility] [address] [address] Performing Lab: [address] [address] [place] URINALYS IS NITRITE [PRESENCE] IN URINE NEGATIVE mg/dL 11/06 Specimen Type: URINE Comment: If Glucose = >500 and Ketones are positive, please alert the Physician. Ordering Provider: TYLER ARBOLEDA A Report Released Date/Time: August 17, 2023 01:25 PM Reporting Lab: [address] [address] Performing Lab: [address] [address] [place] URINALYS IS BILIRUBIN. TOTAL [PRESENCE] IN URINE NEGATIVE mg/dL 11/06 Specimen Type: URINE Comment: If Glucose = >500 and Ketones are positive, please alert the Physician. Ordering Provider: TYLER ARBOLEDA A Report Released Date/Time: August 17, 2023 01:25 PM Reporting Lab: [address] [address] Performing Lab: [address] [address] [place] URINALYS IS SPECIFIC GRAVITY OF URINE BY REFRACTOME TRY 1.024 1.016 - 1.022 11/06 H Specimen Type: URINE Comment: If Glucose = >500 and Ketones are positive, please alert the Physician. Ordering Provider: TYLER ARBOLEDA A Report Released Date/Time: August 17, 2023 01:25 PM Reporting Lab: [address] [address] Performing Lab: [address] [address] [place] URINALYS IS PH OF URINE BY TEST STRIP 6.0 5.0 - 9.0 11/06 Specimen Type: URINE Comment: If Glucose = >500 and Ketones are positive, please alert the Physician. Ordering Provider: TYLER ARBOLEDA A Report Released Date/Time: August 17, 2023 01:25 PM Reporting [facility] [address] [address] Performing [facility]: [facility] [address] [place] URINALYS IS UROBILINOG EN [MASS/VOLU ME] IN URINE BY TEST STRIP <2.0mg/d L <2.0 - 2.0 11/06 Specimen Type: URINE Comment: If Glucose = >500 and Ketones are positive, please alert the Physician. Ordering Provider: TYLER ARBOLEDA A Report Released Date/Time: August 17, 2023 01:25 PM Reporting [facility]: [facility] [address] [facility]forming Lab: [facility] [address] [address] [place] URINALYS IS LEUKOCYTE ESTERASE [PRESENCE] IN URINE BY TEST STRIP NEGATIVE 11/06 Specimen Type: URINE Comment: If Glucose = >500 and Ketones are positive, please alert the Physician. Ordering Provider: TYLER ARBOLEDA A Report Released Date/Time: August 17, 2023 01:25 PM Reporting Lab: [facility] [address] [address] Performing Lab: [facility] [address] [place] LIVER FUNCTION PROTEIN [MASS/VOLU ME] IN SERUM OR PLASMA 6.4 g/dL 6.0 - 8.3 11/06 Specimen Type: SERUM No comment entered. Ordering Provider: TYLER ARBOLEDA A Report Released Date/Time: August 17, 2023 01:25 PM Reporting Lab: [facility] [address] [address] Performing Lab: [facility] [address] [place] LIVER FUNCTION ALBUMIN [MASS/VOLU ME] IN SERUM OR PLASMA 3.3 g/dL 3.5 - 5.0 11/06 L Specimen Type: SERUM No comment entered. Ordering Provider: TYLER ARBOLEDA A Report Released Date/Time: August 17, 2023 01:25 PM Reporting Lab: [facility] [address] [address] Performing Lab: [facility] [address] [address] [place]IVER FUN[place] ALKALINE PHOSPHATAS E [ENZYMATIC ACTIVITY/V OLUME] IN SERUM OR PLASMA 88 U/L 40 - 150 11/06 Specimen Type: SERUM No comment entered. Ordering Provider: TYLER ARBOLEDA A Report Released Date/Time: August 17, 2023 01:25 PM Reporting Lab: [facility] [address] [address] Performing Lab: [facility] [address] [address] [place]IVER FUN[place] ASPARTATE AMINOTRANS FERASE [ENZYMATIC ACTIVITY/V OLUME] IN SERUM OR PLASMA 16 U/L 5 - 34 11/06 Specimen Type: SERUM No comment entered. Ordering Provider: TYLER ARBOLEDA A Report Released Date/Time: August 17, 2023 01:25 PM Reporting Lab: [facility] [address] [address] Performing Lab: [facility] [address] [address] [facility] ALANINE AMINOTRANS FERASE [ENZYMATIC ACTIVITY/V OLUME] IN SERUM OR PLASMA 24 U/L 11/06 Specimen Type: SERUM No comment entered. Ordering Provider: TYLER ARBOLEDA A Report Released Date/Time: August 17, 2023 01:25 PM Reporting Lab: [facility] [address] [address] Performing Lab: [facility] [address] [address] [facility] LIVER FUNCTION BILIRUBIN. TOTAL [MASS/VOLU ME] IN SERUM OR PLASMA 0.4 mg/dL 0.2 - 1.2 11/06 Specimen Type: SERUM No comment entered. Ordering Provider: TYLER ARBOLEDA A Report Released Date/Time: August 17, 2023 01:25 PM Reporting Lab: [address] [address] Performing Lab: [address] [address] [place] CALCIUM CALCIUM [MASS/VOLU ME] IN SERUM OR PLASMA 8.8 mg/dL 8.5 - 10.2 11/06 Specimen Type: SERUM No comment entered. Ordering Provider: TYLER ARBOLEDA A Report Released Date/Time: August 17, 2023 01:25 PM Reporting Lab: [address] [address] Performing Lab: [address] [address] [place] LIPID PANEL, NON FASTING CHOLESTERO L [MASS/VOLU ME] IN SERUM OR PLASMA 134 mg/dL 11/06 Specimen Type: SERUM No comment entered. Ordering Provider: TYLER ARBOLEDA A Report Released Date/Time: August 17, 2023 01:25 PM Reporting Lab: [address] [address] Performing Lab: [address] [address] [place] LIPID PANEL, NON FASTING TRIGLYCERI DE [MASS/VOLU ME] IN SERUM OR PLASMA 235 mg/dL 0 - 150 11/06 H Specimen Type: SERUM No comment entered. Ordering Provider: TYLER ARBOLEDA A Report Released Date/Time: August 17, 2023 01:25 PM Reporting Lab: [address] [address] Performing Lab: [address] [address] [place] LIPID PANEL, NON FASTING CHOLESTERO L IN LDL [MASS/VOLU ME] IN SERUM OR PLASMA BY CALCULATIO N 41 mg/dL 0 - 129 07/26 /2024 Specimen Type: SERUM No comment entered. Ordering Provider: TYLER ARBOLEDA A Report Released Date/Time: August 17, 2023 01:25 PM Reporting Lab: [facility] [address] [address] Performing Lab: [facility] [address] [address] [place] LIPID PANEL, NON FASTING CHOLESTERO L.TOTAL/CH OLESTEROL IN HDL [MASS RATIO] IN SERUM OR PLASMA 2.9 11/06 Specimen Type: SERUM No comment entered. Ordering Provider: TYLER ARBOLEDA A Report Released Date/Time: August 17, 2023 01:25 PM Reporting Lab: [address] [address] Performing Lab: [address] [address] [place] LIPID PANEL, NON FASTING CHOLESTERO L IN HDL [MASS/VOLU ME] IN SERUM OR PLASMA 46 mg/dL 40 - 60 11/06 Specimen Type: SERUM No comment entered. Ordering Provider: TYLER ARBOLEDA A Report Released Date/Time: August 17, 2023 01:25 PM Reporting Lab: [address] [address] Performing Lab: [facility] [address] [address] [place] TSH THYROTROPI N [UNITS/VOL UME] IN SERUM OR PLASMA 1.16 u[IU]/mL 0.35 - 5.00 11/06 Specimen Type: SERUM No comment entered. Ordering Provider: TYLER ARBOLEDA A Report Released Date/Time: August 17, 2023 01:25 PM Reporting Lab: [facility] [address] [address] Performing Lab: [facility] [address] [address] [place] HEMOGLOB IN A1C PANEL HEMOGLOBIN [...] August 17, 2023 01:25 PM Reporting Lab: [facility] [address] [address] Performing Lab: [address] [address] [place] MAGNESIU M MAGNESIUM [MASS/VOLU ME] IN SERUM OR PLASMA 1.9 mg/dL 1.6 - 2.6 11/06 Specimen Type: SERUM No comment entered. Ordering Provider: TYLER ARBOLEDA A Report Released Date/Time: August 17, 2023 01:25 PM Reporting Lab: [facility] [address] [address] Performing Lab: [address] [address] [place] VITAMIN B12 COBALAMIN (VITAMIN B12) [MASS/VOLU ME] IN SERUM OR PLASMA 424 pg/mL 200 - 900 11/06 Specimen Type: SERUM No comment entered. Ordering Provider: TYLER ARBOLEDA A Report Released Date/Time: August 17, 2023 01:25 PM Reporting Lab: [address] [address] Performing Lab: [address] [address] [place] VITAMIN D (25-OH) 25-HYDROXY VITAMIN D3 [MASS/VOLU ME] IN SERUM OR PLASMA 28 ng/mL 20 - 50 11/06 Specimen Type: SERUM No comment entered. Ordering Provider: TYLER ARBOLEDA A Report Released Date/Time: August 17, 2023 01:25 PM Reporting Lab: [address] [place] [address] Performing Lab: [facility] [place] [facility] [address] [facility] [address] [place] Vital Signs Combined list of inpatient and outpatient Vital Signs from Department of Defense and Veterans Affairs, ranging from 12 months to all on record, depending upon the facility. Vital Sign Value Date Comments Source SYSTOLIC BLOOD PRESSURE 109 02/26/20 13:11:41 [facility] DIASTOLIC BLOOD PRESSURE 58 024 13:11:41 [facility] PULSE OXIMETRY 94 02/26/2024 13:11:41 [facility] WEIGHT 183.2 02/26/2024 13:11:41 [facility] BMI 26 kg/m2 02/26/2024 13:11:41 [facility] TEMPERATURE 97.2 02/26/2024 13:11:41 [facility] PULSE 56 02/26/2024 13:11:41 [place] SYSTOLIC BLOOD PRESSURE 159 09/10/19 11:32:13 [facility] [place] [facility] DIASTOLIC BLOOD PRESSURE 63 024 11:32:13 [facility] [place] [facility] PULSE OXIMETRY 97 09/10/2023 11:32:13 [facility] [place] [facility] PAIN 0 09/10/2023 11:32:13 [facility] [place] [facility] PULSE 54 09/10/2023 11:32:13 [facility] [place] [facility] SYSTOLIC BLOOD PRESSURE 134 08/07/19 15:14:54 [facility] DIASTOLIC BLOOD PRESSURE 69 024 15:14:54 [facility] PULSE OXIMETRY 97 08/07/2023 15:14:54 [facility] WEIGHT 193 08/07/2023 15:14:54 [facility] BMI 28 kg/m2 08/07/2023 15:14:54 [facility] HEIGHT 70 08/07/2023 15:14:54 [facility] TEMPERATURE 98.3 08/07/2023 15:14:54 [facility] PULSE 54 08/07/2023 15:14:54 [facility] RESPIRATION 18 08/07/2023 15:14:54 [facility] SYSTOLIC BLOOD PRESSURE 152 06/30/19 24 10:28:55 [facility] DIASTOLIC BLOOD PRESSURE 78 024 10:28:55 [facility] PULSE OXIMETRY 98 06/30/2023 10:28:55 [facility] WEIGHT 203 06/30/2023 10:28:55 [facility] BMI 29 kg/m2 06/30/2023 10:28:55 [facility] PAIN 0 06/30/2023 10:28:55 [facility] TEMPERATURE 97.3 06/30/2023 10:28:55 [facility] PULSE 98 06/30/2023 10:28:55 [facility] 06/30/2023 10:28:55 [facility] HEIGHT 70 06/23/2023 12:48:00 [facility] Encounters Combined list of: 1) Encounters from Department of Veterans Affairs facilities going backup to the last 18 months, not all ID inpatient encounters are included; 2) Encounters from the Department of [facility] facilities going backup to 280 months. 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 OFFICE O/P EST MOD 30-39 MIN [id number] Diagnos is: ICD-10- CM F43.10 Post-tr aumatic stress disorde r, unspeci fied CHEYANNEGAGANDEEP RRIE N 03/25 [facility] Outpatient Encounter [id number] 03/25 [facility] Outpatient Encounter [id number] 03/31 [facility] Outpatient Encounter [id number] 04/16 [facility] Outpatient Encounter [id number] 04/[address] HEARING AID REPAIR/MOD IFYING [id number] Diagnos is: ICD-10- CM Z46.1 Encount er for fitting and adjustm ent of hearing aid CA BLAKE 05/[address] [place] [address] HEARING AID FITTING/CH ECKING [id number] Diagnos is: ICD-10- CM Z46.1 Encount er for fitting and adjustm ent of hearing aid CA BLAKE 05/[address] [place] [address] OFFICE O/P EST MOD 30 MIN [id number] Diagnos is: ICD-10- CM L30.8 Other specifi ed dermati tis JANESSA MERRITT A 05/[address] HEARING AID REPAIR/MOD IFYING [id number] Diagnos is: ICD-10- CM Z46.1 Encount er for fitting and adjustm ent of hearing aid SANDRO CARRERO 05/[address] [place] [address] HEARING AID FITTING/CH ECKING [id number] Diagnos is: ICD-10- CM Z46.1 Encount er for fitting and adjustm ent of hearing aid SANDRO CARRERO Y F 06/[address] [place] [address] HC PRO PHONE CALL 11-20 MIN [id number] Diagnos is: ICD-10- CM R68.89 Other general symptom s and signs MARILEE ARIAS DOLPH 06/22 [facility] Outpatient Encounter [id number] 06/25 [facility] [place] OFFICE O/P EST LOW 20 MIN [id number] Diagnos is: ICD-10- CM J44.9 Chronic obstruc tive pulmona ry disease , unspeci KRISTINE Gunn 06/29 [facility] Outpatient Encounter [id number] 06/[address] Outpatient Encounter [id number] 07/[address] [place] [address] [facility] [place] [place] [facility] Outpatient Encounter [id number] 07/17 [facility] [place] [facility] Outpatient Encounter [id number] 08/05 [facility] [place] [facility] [place] [facility] Outpatient Encounter [id number] 08/06 [place] [facility] [place] [place] [facility] OFFICE O/P EST HI 40 MIN [id number] Diagnos is: ICD-10- CM J96.11 Chronic respira tory failure with hypoxia ERLINDA ARBOLEDA 08/06 [facility] IE [facility] [facility] Outpatient Encounter [id number] 08/06 [place] [facility] [place] [facility] ELECTROCAR DIOGRAM REPORT [id number] Diagnos is: ICD-10- CM Z13.6 Encount er for screeni ng for cardiov ascular disorde rs TINO LABOY 08/06 [place] [facility] [place] [facility] ELECTROCAR DIOGRAM TRACING [id number] GUERREROSHI 08/06 [facility] [place] [place] [facility] [place] [facility] Outpatient Encounter [id number] Diagnos is: ICD-10- CM I48.0 Paroxys mal atrial fibrill ation HERNANDEZ GEE 08/10 [facility] [place] [place] [facility] [place] [facility] QNHP OL DIG ASSMT&MGMT 11- [id number] [id number] Diagnos is: ICD-10- CM I48.0 Paroxys mal atrial fibrill ation GUNJAN BRONSON 08/10 [facility] [place] [facility] Outpatient Encounter [id number] 08/10 [facility] [place] [place] [facility] [place] OFF/OP EST AUGUST X REQ PHY/QHP [id number] Diagnos is: ICD-10- CM 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 En[facility] [id number] 08/14 [facility] [place] [facility] TTE W/DOPPLER COMPLETE [id number] Diagnos is: ICD-10- CM I48.0 Paroxys mal atrial fibrill ation PEDRO CHISHOLM 08/17 [facility] [place] [facility] OFFICE O/P EST LOW 20 MIN [id number] Diagnos is: ICD-10- CM I48.0 Paroxys mal atrial fibrill atTINO Floyd 08/17 [place] [facility] [place] [facility] Outpatient Encounter [id number] 08/24 [facility] [place] [facility] SPEC DERM SVC/PX [id number] Diagnos is: ICD-10- CM Z13.89 Encount er for screeni ng for other disorde r Sandeep IYER 08/24 [place] [facility] OFFICE O/P EST SF 10 MIN [id number] Diagnos is: ICD-10- CM L92.0 Granulo ma annular e JORGE L SHIN PH J 08/24 [facility] [place] [facility] Outpatient Encounter [id number] 08/24 [facility] [place] [place] [facility] Out[facility] Encounter [id number] 08/25 [facility] [place] [place] [facility] Outpatient Encounter [id number] 08/25 [facility] [place] [place] [facility] Outpatient Encounter [id number] 09/08 [facility] [place] [place] [facility] TARGETED CASE MANAGEMENT [id number] Shaila ROMO 09/08 [facility] [place] [facility] ODONTOPLAS TY 1-2 TEETH [id number] Diagnos is: ICD-10- CM K08.531 Fractur ed dental restora tive materia l with loss of materia l ELDER VALLEJO AM 09/09 [facility] [place] [facility] Outpatient Encounter [id number] 09/18 [place] [facility] [facility] PSYCH DIAGNOSTIC EVALUATION [id number] Diagnos is: ICD-10- CM F43.12 Post-tr aumatic stress disorde r, chronic ROHAN SCALES G 09/22 [facility] Outpatient Encounter [id number] 09/25 [facility] QNHP OL DIG ASSMT&MGMT 5-10 [id number] Diagnos is: ICD-10- CM I48.20 Chronic atrial fibrill ation, unspeci ethaned ROHAN RANGEL 09/25 [facility] [place] [facility] Outpatient Encounter [id number] 09/29 [place] [facility] [place] [place] [facility] [place] [facility] INTRAORAL FULL IMAGE SERIES [id number] Diagnos is: ICD-10- CM K03.6 Deposit s [accret ions] on teeth MARCELINA CARREON 10/01 [facility] [place] [place] [facility] [place] [facility] Outpatient Encounter [id number] 10/16 [facility] [place] [place] [facility] OFFICE O/P EST LOW 20 MIN [id number] Diagnos is: ICD-10- CM J96.11 Chronic respira tory failure with hypoxia ERLINDA ARBOLEDA A 10/29 [facility] HEARING AID REPAIR/MOD IFYING [id number] Diagnos is: ICD-10- CM Z46.1 Encount er for fitting and adjustm ent of hearing aid JABIER GUY 11/06 [place] [facility] Out[facility] Encounter [id number] 1.11/12 [facility] [place] OFF/OP CONSLTJ NEW/EST HI 55 [id number] Diagnos is: ICD-10- CM F43.10 Post-tr aumatic stress disorde r, unspeci fied HERNANDEZ,ST EVEN G 11/12 [place] [facility] COMPRE OPH EXAM NEW PT 1/> [id number] Diagnos is: ICD-10- CM 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, right eye, mild stage OSHIJOSE MONGE 11/13 [facility] CMPTR OPHTH IMG OPTIC NERVE [id number] Diagnos is: ICD-10- CM 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, right eye, moderat e stage OSJOSE LOUIE 11/13 [facility] Out[facility] Encounter [id number] 11/18 [facility] Out[facility] Encounter [id number] 11/23 [facility] Out[facility] Encounter [id number] 11/23 [facility] Out[facility] Encounter [id number] 1.11/234 [facility] PSYCH DIAGNOSTIC EVALUATION [id number] Diagnos is: ICD-10- CM R41.3 Other amnesia FEAR[place] MAGYEL A 11/30 [facility] Out[facility] Encounter [id number] 12/01 [facility] Out[facility] Encounter [id number] 12/03 [facility] Out[facility] Encounter [id number] 12/06 [facility] PSYCL/NR[place] T[place] [id number] Diagnos is: ICD-10- CM R41.3 Other amnesia FEARING,BLAIRE COE A 12/08 [facility] [place] Outpatient Encounter [id number] 12/24 [place] [facility] Out[facility]counter [id number] 1.12/24 [facility] Encounter [id number] 1.12/28 [facility] EXTENDED VISUAL FIELD XM [id number] 1. 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, right eye, mild stage OSHINSKIEJOSE J 12/31 [facility] CONFORMITY EVALUATION [id number] Diagnos is: ICD-10- CM Z46.1 Encount er for fitting and adjustm ent of hearing aid Shaila BARDALES 01/01 [facility] Outpatient Encounter [id number]/[id number] [facility] Out[facility] Encounter [id number] 1.01/15 [facility] [place] [facility] FEE [id number] Diagnos is: ICD-10- CM F43.10 Post-tr aumatic stress disorde r, unspeci Sandeep Hilario 01/20 [facility] O/P EST LOW 20 MIN [id number] Diagnos is: ICD-10- CM F43.10 Post-tr aumatic stress disorde r, unspeci fimainor HERNANDEZ,ST EVEN G 01/20 [facility] CONFORMITY EVALUATION [id number] Diagnos is: ICD-10- CM Z46.1 Encount er for fitting and adjustm ent of hearing aid Shaila BARDALES 02/04 [facility] INTRM OPH EXAM EST PATIENT [id number] Diagnos is: ICD-10- CM 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 ARBOLEDA,DA VID A 02/25 [facility] Outpatient Encounter [id number] 1.03/17 [facility] Out[facility] Encounter [id number] 1.03/30 [facility] HEARING AID REPAIR/MOD IFYING [id number] Diagnos is: ICD-10- CM Z46.1 Encount er for fitting and adjustm ent of hearing aid MILLIE OVALLES 04/15 [facility] Outpatient Encounter [id number] 04/20 [facility] Out[facility] Encounter [id number] 04/22 [facility] NQHP OL DIG ASSMT&MGMT 5-10 [id number] Diagnos is: ICD-10- CM Z79.01 nursing home (curren t) use of anticoa gulants TATI YU 04/23 [facility] Outpatient Encounter [id number] 1[facility]04/23 [facility] Outpatient Encounter [id number] 04/26 [facility] FEE [id number] Diagnos is: ICD-10- CM F43.10 Post-tr aumatic stress disorde r, unspeci Sandeep Hilario 04/28 [facility] O/P EST LOW 20 MIN [id number] Diagnos is: ICD-10- CM F43.10 Post-tr aumatic stress disorde r, unspeci ST TANIA Smith G 04/28 [facility] Outpatient Encounter [id number] 05/11 [facility] HEARING AID FITTING/CH ECKING [id number] Diagnos is: ICD-10- CM Z46.1 Encount er for fitting and adjustm ent of hearing aid JABIER GUY 05/11 [facility] OFF[facility] O/P EST LOW 20 MIN [id number] Diagnos is: ICD-10- CM F43.10 Post-tr aumatic stress disorde r, unspeci ST TANIA Smith G 05/26 [facility] Social History Combined list of available smoking, tobacco, and other social history from [facility] and [facility] facilities. Social History Type Response Date Comment Sourc e Tobacco smoking status NHIS VA-TOBACCO NEVER USED 08/06/2023 [facility] [place] [facility] History of tobacco use VA-TOBACCO NEVER USED 06/30/2023 [facility] History of tobacco use ID-TOBACCO NEVER USED 07/04/2022 [facility] History of tobacco use ID-TOBACCO FORMER USER 10/11/2020 [facility] History of tobacco use ID-TOBACCO FORMER USER 08/03/2019 [facility] History of tobacco use [facility] 15 YRS OR MORE 06/03/2018 [facility] History of tobacco use QUIT TOBACCO >7 YEARS AGO 11/13/2017 [facility] History of tobacco use LIFETIME NON-USER OF TOBACCO 12/25/2016 [facility] History of tobacco use QUIT TOBACCO >7 YEARS AGO 01/25/2016 [facility] History of tobacco use CURRENT TOBACCO USER 12/14/2014 [facility] History of tobacco use QUIT TOBACCO >7 YEARS AGO 01/09/2010 [facility] History of tobacco use QUIT TOBACCO >7 YEARS AGO 01/10/2009 [facility] History of tobacco use QUIT TOBACCO >7 YEARS AGO 02/02/2008 [facility] Plan of Care List of future care activities from Department [facility]. Additional future care activities may be listed in the Assessment and Plan section. Date/Time Care Activity Care Activity Detail [facility] 06/22/2024 AMBULATORY - MEDICINE AMBULATORY - MEDICI [facility] 06/22/2024 AMBULATORY - NONE AMBULATORY - NONE [facility] 09[facility]14/2024 AMBULATORY - MEDICINE AMBULATORY - MEDICI [facility] Advance Directives List of completed, amended, or rescinded Advance Directives on record at Department [facility]. An actual copy of the Directive is not included. Date Advance Directive Provider Source 08/25/2023 ADVANCE DIRECTIVE MICHELLE LEVINE [facility]
--- OUTSIDE RECORDS SUMMARY | 2024-05-27 10:38 | XMS_ITS | Clinical Summary ---
Author Organization [facility] Address [address] [place] [address] Phone Care Team Providers Care Perl Software Engineer Name Role Phone & Sports Medicine, [facility] Unavailable + [phone] Kenney PARK MD, Christ Hernandez Unavailable [phone] Leti CUELLO, Maryan Rose Unavailable [phone] Junaid CUELLO, Bora Unavailable [phone] Andres CUELLO, Narendra Primary Care Provider [phone] Deni Bernabe MD Unavailable [phone] Gloria Morris PA-C Unavailable [phone] Edita CUELLO, Martinez Unavailable [phone] Cathy CUELLO, Sylvester Penaloza Unavailable + [phone] Smiley Calderon Unavailable [phone] Dane Rasmussen MD Unavailable [phone] Colton Guardado MD Unavailable [phone] [facility] DO Unavailable [phone] Kay CUELLO, Merle Unavailable [phone] Reason for Visit and Chief Complaint [Patient Encounter] Problems Includes: Problems addressed during this encounter and other active Problems All Visits Onset Date Resolved Date Provider Condition S tatus 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 06/25/2021 Gloria Odioso Arturo PA-C Active Last Documented On 04/02/2022 10:30AM ; [facility] Note: 50-69% left, non surgical in [address] gar, repeat in one year Diabetes Mellitus Type 2 with Complication 06/25/2021 Gloria MOFFETT-C Active Last Documented On 2 10:45AM ; [facility] Chronic Respiratory Failure 07/04/2020 Narendra miramontes MD Active Last Documented On 07/04/2020 11:28AM ; [facility] Note: on continuous home oxygen Coronary Artery Disease 04/21/2019 Jessica Mony yarbrough HRIS COORDINATOR Active Last Documented On 0 8:03AM ; [facility] Atherosclerosis Coronary Art maryann with Angina Pectoris 01/15/2019 Gloria MOFFETT-C Active Last Documented On 9 9:21AM ; [facility] Edema 01/14/2019 Philip BECKER Active Last Documented On 9 2:52PM ; [facility] 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 Gloria MOFFETT-C Active Last Documented On 9 8:57AM ; [facility] Note: per pulm notedECHO with 45-50%, mi ldly reduced LVSF 06/2017 Osteoarthritis Localized Primary Knees Bilateral 04/03/2018 Juany loyola PA-C Active Last Documented On 8 11:45AM ; [facility] 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 Narendra Campos MD Active Last Documented On 8 11:49AM ; [facility] Colon Polyps 06/20/2017 Martinez Kohler MD Active Last Documented On 8 11:24AM ; [facility] Atrial Fibrillation 10/10/2015 Narendra Campos MD Active Last Documented On 6 9:16AM ; [facility] Note: s/p ablation Chronic Obstructive Pulmonary Disease 11/29/2013 Narendra Campos MD Active Last Documented On 4 2:43PM ; [facility] Post-traumatic Stress Disorder 11/29/2013 Jt Campos MD Active Last Documented On 4 10:39AM ; [facility] Patellar Chondromalacia 03/02/2013 Narendra baltazar MD Active Last Documented On 4 7:42AM ; [facility] Note: Unchanged Asthma 09/04/2012 Narendra Campos MD Activ e Last Documented On 4 7:42AM ; [facility] Atherosclerosis Aorta 03/26/2012 Narendra mendez MD Active Last Documented On 4 7:42AM ; [facility] Note: on ct scan Rhinitis 08/04/2009 Narendra Campos MD Activ e Last Documented On 4 7:42AM ; [facility] Note: Unchanged Esophagitis Chronic Reflux 07/28/2009 Gloria Morris PA-C Active Last Documented On 4 2:20PM ; [facility] Note: Unchanged Hypertension Systemic 07/28/2009 Norma PANDEY Active Last Documented On 0 6:29PM ; [facility] Note: Unchanged Colonic Diverticulosis 10/06/2007 Narendra oconnor MD Active Last Documented On 4 7:42AM ; [facility] Note: Unchanged Hyperlipidemia Mixed 10/06/2007 Narendra gomez MD Active Last Documented On 4 7:42AM ; [facility] Note: Unchanged Plan of Treatment Pending Tests Order Diagnosis Results Due Ordering P [place] Pulmonology Studies - DME CPAP-(Heated Humidity) Length of need 99 months Obstructive sleep apnea (adult) (pediatric) 05/15/20 Mt Mistry DO Last Documented On 1 2:50PM ; [facility] Pulmonology Studies PFT (Full) Shortness of breath 1 Mt Mistry DO Last Documented On 1 2:37PM ; [facility] Pulmonology Studies Pulmonary Rehab Chronic obst ructive pulmonary disease, unspecified 03/01/21 Mt Mistry DO Last Documented On 1 3:46PM ; [facility] Pulmonology Studies PFT (Full) Shortness of breath 2 Mt Mistry DO Last Documented On 2 11:03AM ; [facility] Pulmonology Studies - DME O2-Length of need 99 months Chronic obstructive pulmonary disease, unspecified 06/30/23 Mt Mistry DO Last Documented On 4 3:12PM ; [facility] Pulmonology Studies - DME Portable Oxygen Concentrator-Length of need 99 mos Chronic obstructive pulmonary disease, unspecified 06/30/23 Mt Mistry DO Last Documented On 4 3:14PM ; [facility] Care Programs Check if Patient is Eligible for CCM Services Last Documented On 8 12:04AM ; [facility] Future Tests Order Diagnosis Results Due Ordering Pr ovider Radiology Studies - Plain Film XRAY-Chest,PA/L AT Chronic obstructive pulmonary disease, unspecified 05/22/20 Mt Mistry DO Last Documented On 1 3:20PM ; [facility] Pulmonology Studies 6 Minute Walk Test Shortness of breath 06/14/20 Mt Mistry DO Last Documented On 1 11:40AM ; [facility] Pulmonology Studies Pulmonary Rehab Chronic obst ructive pulmonary disease, unspecified 01/24/22 Mt Mistyr DO Last Documented On 2 8:38AM ; [facility] Pulpiedmont newnanology Studies - *Radiology Study CT Chest- W/O contrast Other pneumonia, unspecified organism 08/15/22 Mt Mistry DO Last Documented On 3 3:12PM ; [facility] Assessments Includes: Assessments from this [...] 2:24PM By Shubham Patel APRN ; [facility] Albuterol Sulfate HFA 108 (9 0 Base) MCG/ACT Inhalation Aerosol Solution 05/13/2023 Provider: Brittany Patel APRN Diagnosis: Shortness of tristin ath 2 puffs q4h prn Last Documented On 4 2:24PM By Shubham Patel APRN ; [facility] Levocetirizine Dihydrochlori de 5 MG Oral Tablet 05/13/2023 Provider: Shubham Patel APRN Diagnosis: Allergic rhiniti s, unspecified 1 once daily Last Documented On 4 2:24PM By Shubham Patel APRN ; [facility] Albuterol Sulfate HFA 108 (90 Base) MCG/ACT Inhalation Aerosol Solution 07/19/2022 Provider: Frannie Guidry DNP HOTEL BREAKFAST ATTENDANT-BC Diagnosis: Shortness of tristin ath 2 puffs q4h prn Last Documented On 3 9:03AM By Frannie Garrison APRN ; [facility] Oxygen Inhalation Gas 04/02/2022 Provider: Diagnosis: Last Documented On 2 10:09AM By Gloria Morris PA-C ; [facility] Atorvastatin Calcium 80 MG Oral Tablet 02/20/2021 Provider: Gloria Briscoe Diagnosis: Mixed hyperlipid emia 1 once daily Last Documented On 2 9:52AM By Arlette Aj ; [facility] hydrALAZINE HCl 25 MG OR TABS 12/29/2020 Provider: Colton Guardado MD Diagnosis: every 8 hours as needed for for BP over 160 Last Documented On 2 9:53AM By Arlette Aj ; [facility] Metoprolol Succinate ER 50 M G Oral Tablet Extended Release 24 Hour 07/14/2020 Provider: Diagnosis: Last Documented On 1 4:45AM By Jessica BECKER ; [facility] Furosemide 20 MG OR TABS 06/24/2019 Provider: Keegan Guardado MD Diagnosis: 1 once daily Last Documented On 1 11:14AM By Aleah Cerda ; [facility] Fluticasone Propionate 50MCG/ACT Nasal Suspension 02/19/2019 Provider: Gloria Morris PA-C Diagnosis: Chronic sinusiti s, unspecified use as directed 2 sprays eac h nare daily Last Documented On 9 8:23AM By Savita Caal ; [facility] Primidone 50 MG OR TABS 10/13/2018 Provider: Supriya Lombardo DO Diagnosis: Tremor, unspecif ied 3po q HS Last Documented On 9 8:22AM By Savita Caal ; [facility] Sertraline HCl 100MG Oral Tablet 09/07/2017 Provider : Diagnosis: Last Documented On 8 2:34PM By Colton Guardado M.D. ; [facility] Aspirin EC Low Dose 81MG Oral Tablet Delayed Release 0 07/11/2016 Provider: Diagnosis: Last Documented On 7 4:19PM By Colton Guardado M.D. ; [facility] Pradaxa 150MG Oral Capsule 07/11/2016 Provider: Diagnosis: Last Documented On 7 4:15PM By Colton Guardado M.D. ; [facility] Temazepam 15 MG OR CAPS 07/20/2014 Provider: Janay Morris PA-C Diagnosis: Long-term use of high-risk meds. 1-2 qHS prn. Last Documented On 5 11:02AM By Gloria Morris PA-C ; [facility] Medications Administered Includes: Administered Medications [...] Last Documented On 06/16/2023 2:04PM ; [facility] Note: facial lip swelling listaprill Allergy swollen 07/13/2020 Active Last Documented On 2:04PM ; [facility] Encounters Encounter Provider Location Date Check-In Time Check-Out Time Diagnosis [Patient Encounter] [facility] M[facility] DO 06/30/2023 3:10PM 11:59PM Insurance Includes: Active Insurance Policies Plan Name Member ID Group # Subscriber Relationship Effect ana m Dates 1 - Medicare Part B [id number] Nick Oliva Self 2 - [employer]/ [employer] [id number] Nick Oliva Self 07/13 - Unknown Advance Directives Includes: Current Advance Directives Directive Pat Aware Third Green Party Effective Date Reviewed [facility] Power of Filling Machine Operator/Healthcare Surrogate Yes 08/08/2017 Current and Verified Clinical Notes Includes: Clinical Notes from this encounter No Clinical Notes Recorded
--- OUTSIDE RECORDS SUMMARY | 2024-05-27 10:39 | XMS_ITS | Clinical Summary ---
Author Organization [facility] Address [address] [place] [address] Phone Care Team Providers Care Assistant Bookkeeper Name Role Phone & Sports Medicine, Ahmet Ortho Unavailable + [phone] Kenney PARK MD, Christ Hernandez Unavailable [phone] Leti CUELLO, Maryan Rose Unavailable [phone] Bora Gar MD Unavailable [phone] Andres CUELLO, Narendra Primary Care Provider [phone] Deni Bernabe MD Unavailable [phone] Gloria Morris PA-C Unavailable [phone] Edita CUELLO, Martinez Unavailable [phone] Cathy CUELLO, Sylvester Penaloza Unavailable + [phone] Smiley Calderon Unavailable [phone] Valery CUELLO, Dane Unavailable [phone] Colton Guardado MD Unavailable [phone] [place] DO Unavailable [phone] Kay CUELLO, Merle Unavailable [phone] Reason for Visit and Chief Complaint [facility] Medicare Follow Up Visit Problems Includes: Problems [...] ; [facility] Edema 01/14/2019 Philip MODIP Active Last Documented On 9 2:52PM ; [facility] Coronary Artery Disease 10/22/2018 Gloria Morris PA-C Inactive Last Documented On 9 9:21AM ; [facility] Chf Combined Systolic [...] 7:42AM ; [facility] Note: Unchanged Hypertension Systemic 07/28/2009 Norma PANDEY Active Last Documented On 0 6:29PM ; [facility] Note: Unchanged Colonic Diverticulosis 10/06/2007 Narendra oconnor MD Active Last Documented On 4 7:42AM ; [facility] Note: Unchanged Hyperlipidemia Mixed 10/06/2007 Narendra gomez MD Active Last Documented On 4 7:42AM ; [facility] Note: Unchanged Past Visits Onset Date Resolved Date Provider Condition Status Esophagitis Chronic Reflux 07/28/2009 Gloria Morris PA-C Active Last Documented On 06/16/2023 2:20PM ; [facility] Note: Unchanged Plan of Treatment In reviewing the patient's chart, performing examination and/or evaluation, counseling and education, ordering medications, tests if needed and documentation time spent was a minimum of 30 minutes. - Last Documented On 06/16/2023 3:00PM ; [facility] Visit complexity inherent to evaluation and management associated with medical care services that serve as the continuing focal point for all needed health care services and/or with medical care services that are part of ongoing care related to a patient's single, serious condition or a complex condition - Last Documented On 06/16/2023 3:00PM ; [facility] Pending Tests Order Diagnosis Results Due Ordering P [facility] Neuropathy (RO) 04/29/23 Gloria Morris PA-C Last Documented On 4 3:03PM ; [facility] Hemoglobin A1c 04/29/23 Gloria Morris PA-C Last Documented On 4 3:03PM ; [facility] Antinuclear Antibodies, IFA 04/29/23 Gloria Morris PA-C Last Documented On 4 3:03PM ; [facility] Vitamin B12 04/29/23 Gloria Morris PA-C Last Documented On 4 3:03PM ; [facility] Basic Metabolic Panel (8) 04/29/23 Gloria Morris PA-C Last Documented On 4 3:03PM ; [facility] COMPLETE BLOOD COUNT 04/29/23 Janay dieter Morris PA-C Last Documented On 4 3:03PM ; [facility] SED RATE, iSED 04/29/23 Gloria Morris PA-C Last Documented On 4 3:03PM ; [facility] Folate (Folic Acid), Serum 04/29/23 Gloria Morris PA-C Last Documented On 4 3:03PM ; [facility] Thyroxine (T4) Free, Direct, S 04/29 Gloria Morris PA-C Last Documented On 4 3:03PM ; [facility] Hepatitis A Ab, IgM 04/29/23 Christopher Morris PA-C Last Documented On 4 3:03PM ; [facility] Hepatitis A Ab, Total 04/29/23 Miguel Morris PA-C Last Documented On 4 3:03PM ; [facility] Hepatitis B Core Ab, Tot 04/29/23 Gloria Morris PA-C Last Documented On 4 3:03PM ; [facility] Hepatitis B Surface Ag 04/29/23 Ra helen Morris PA-C Last Documented On 4 3:03PM ; [facility] HEPATITIS B CORE AB TOTAL W/REFL IGM 04/29/23 Gloria Morris PA-C Last Documented On 4 3:03PM ; [facility] Hepatitis B Core Ab, IgM 04/29/23 Gloria Morris PA-C Last Documented On 4 3:03PM ; [facility] Hepatic Function Panel (7) 04/29/23 Gloria Morris PA-C Last Documented On 4 3:03PM ; [facility] Albumin/Creat Ratio Urine 04/29/23 Gloria Morris PA-C Last Documented On 4 3:03PM ; [facility] RPR 04/29/23 Gloria Morris PA-C Last Documented On 4 3:03PM ; [facility] Protein Electro.,S 04/29/23 Gloria Morris PA-C Last Documented On 4 3:03PM ; [facility] TSH 04/29/23 Gloria Morris PA-C Last Documented On 4 3:03PM ; [facility] Protein Electro, Random Urine Gloria Morris PA-C Last Documented On 4 3:03PM ; [facility] Vitamin D, 25-Hydroxy 04/29/23 Miguel Morris PA-C Last Documented On 4 3:03PM ; [facility] Care Programs Check if Patient is Eligible for CCM Services Last Documented On 8 12:04AM ; [facility] Future Tests Order Diagnosis Results Due Ordering Pr ovider Radiology Studies - Ultrasound U/S-Soft 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 04/18/21 Gloria Raman MOFFETT-Shaila Last Documented On 1 10:13AM ; [facility] Radiology Studies - Vascular Ultrasound Carotid Doppler Dizziness and giddiness 05/15/21 Gloria Raman Morris PA-C Last Documented On 2 10:33AM ; [facility] Refer To Neurology Dizziness and giddiness 06/07/21 Tremaine daniellelinda Morris PA-C Last Documented On 2 1:34PM ; [facility] Refer To ENT Dizziness and giddiness 06/07/21 R ledy MOFFETT-C Last Documented On 2 1:34PM ; [facility] Refer To Cardiology Cardiac arrhythmia, unspecified 05/16 08/03 Gloria MOFFETT-C Last Documented On 2 1:49PM ; [facility] Refer To Surgery-Vascular Occlusion and s tenosis of left carotid artery 06/20/21 Gloria Raman MOFFETT-C Last Documented On 2 9:10AM ; [facility] Refer To Gastroenterology Polyp of colon 12/12/22 Janay garcias Raman MOFFETT-Shaila Last Documented On 3 1:44PM ; [facility] Lab NEETA (RO1) 04/29/23 Gloria MOFFETT-C Last Documented On 4 8:52AM ; [facility] CBC (RO1) 04/29/23 Gloria MOFFETT-C Last Documented On 4 8:52AM ; [facility] Vitamin B12 (RO1) 04/29/23 Gloria MOFFETT-C Last Documented On 4 8:52AM ; [facility] Vitamin D 25 hydroxy (RO1) 04/29/23 Glorianatividad MOFFETT-C Last Documented On 4 8:52AM ; [facility] TSH , Free T4 (GVC) 04/29/23 Racdanni mckeon Raman MOFFETT-Shaila Last Documented On 4 8:52AM ; [facility] Diabetes Panel (RO) 05/22/23 Ra helen MOFFETT-Shaila Last Documented On 3 1:28PM ; [facility] Refer To Neurology Dizziness and giddiness 05/22/23 R ledy MOFFETT-Shaila Last Documented On 4 8:55AM ; [facility] Refer To Physical Therapy Dizziness and giddiness Gloria MOFFETT-Shaila Last Documented On 4 8:55AM ; [facility] Assessments Includes: Assessments from this encounter Findings - Allergic rhinitis due to food - Last Documented On 06/16/2023 3:00PM ; [facility] - Unspecified atrial fibrillation - Last Documented On 06/16/2023 3:00PM ; [facility] - Atherosclerotic heart disease of [place] coronary artery without angina pectoris - Last Documented On 06/16/2023 3:00PM ; [facility] - Chronic combined systolic (congestive) and diastolic (congestive) heart failure - Last Documented On 06/16/2023 3:00PM ; [facility] - Essential (primary) hypertension - Last Documented On 06/16/2023 3:00PM ; [facility] - Atherosclerosis of aorta - Last Documented On 06/16/2023 3:00PM ; [facility] - Atherosclerotic heart disease of [place] coronary artery with other forms of angina pectoris - Last Documented On 06/16/2023 3:00PM ; [facility] - Occlusion and stenosis of left carotid artery - Last Documented On 06/16/2023 3:00PM ; [facility] - Edema, unspecified - Last Documented On 06/16/2023 3:00PM ; [facility] - Mild intermittent asthma, uncomplicated - Last Documented On 06/16/2023 3:00PM ; [facility] - Chronic obstructive pulmonary disease, unspecified - Last Documented On 06/16/2023 3:00PM ; [facility] - Chronic respiratory failure with hypoxia - Last Documented On 06/16/2023 3:00PM ; [facility] - Sleep apnea, unspecified - Patient reports feeling tired all the time and not getting good sleep at night due to issues with CPAP use. - Last Documented On 06/16/2023 3:00PM ; [facility] - Plan: Continue CPAP, following with pumlonology - Last Documented On 06/16/2023 3:00PM ; [facility] - Sleep apnea, unspecified - Last Documented On 06/16/2023 3:00PM ; [facility] - Polyp of colon - Last Documented On 06/16/2023 3:00PM ; [facility] - Diverticulosis of large intestine without perforation or abscess without bleeding - Last Documented On 06/16/2023 3:00PM ; [facility] - Body mass index [BMI] 28.0-28.9, adult - Last Documented On 06/16/2023 3:00PM ; [facility] - Mixed hyperlipidemia - Last Documented On 06/16/2023 3:00PM ; [facility] - Type 2 diabetes mellitus with other specified complication - Note the patient's A1C level at 6.8, indicative of type 2 diabetes mellitus, - Last Documented On 06/16/2023 3:00PM ; [facility] - Recommend dietary modifications, emphasizing the reduction of sugar intake - Last Documented On 06/16/2023 3:00PM ; [facility] - Hypotension, unspecified - Document the patient's low blood pressure readings at 100 over 60 and chronic light-headedness, raising concerns for orthostatic hypotension and the effects of isosorbide. - Last Documented On 06/16/2023 3:00PM ; [facility] - Suggest a tilt table test to investigate orthostatic hypotension. - Last Documented On 06/16/2023 3:00PM ; [facility] - Advise the patient to withhold blood pressure medication if readings are low and to take hydralazine only if blood pressure is elevated. - Last Documented On 06/16/2023 3:00PM ; [facility] - Coordinate with Dr. Guardado's office regarding: - Last Documented On 06/16/2023 3:00PM ; [facility] - The potential discontinuation of isosorbide. - Last Documented On 06/16/2023 3:00PM ; [facility] - Arranging a possible final visit before the patient relocates - Last Documented On 06/16/2023 3:00PM ; [facility] - Primary osteoarthritis, unspecified site - Last Documented On 06/16/2023 3:00PM ; [facility] - Chondromalacia patellae, unspecified knee - Last Documented On 06/16/2023 3:00PM ; [facility] - Dizziness and giddiness - Patient reports a history of falls, lightheadedness, and dizziness, which may be related to a previous stroke and/or peripheral neuropathy from [employer] exposure. - Last Documented On 06/16/2023 3:00PM ; [facility] - Possible orthostatic hypotension or vertigo. - Last Documented On 06/16/2023 3:00PM ; [facility] - Complicated case - Last Documented On 06/16/2023 3:00PM ; [facility] - Plan: Refer the patient to a neurologist for further evaluation, would consider possible tilt table test to assess for orthostatic hypotension. Additionally, refer the patient to [facility] for vestibular rehabilitation to address balance issues Labwork WNL - Last Documented On 06/16/2023 3:00PM ; [facility] - Advise patient to f/u with new PCP at the [facility] after reolcating to [place] for further evluation - Last Documented On 06/16/2023 3:00PM ; [facility] - Post-traumatic stress disorder, unspecified - Last Documented On 06/16/2023 3:00PM ; [facility] Medication management - Last Documented On 06/16/2023 3:00PM ; [facility] - [facility] tremors [facility] - Last Documented On 06/16/2023 3:00PM ; [facility] - Plan: Monitor the patient's medication use and consider potential side effects that may contribute to dizziness and balance issues. Encourage the patient to check blood pressure during episodes of dizziness to assess for potential correlation with low blood pressure. - Last Documented On 06/16/2023 3:00PM ; [facility] Medical Equipment - Implanted Devices Includes: Current Devices No Medical Equipment Recorded Medications Includes: Medications discussed during this encounter and other current Medications Discontinued / Stopped on this date Colton Guardado MD on 05/28/2023 Isosorbide Mononitrate ER 30 MG Oral Tablet Extended Release 24 Hour Provider: Colton estrella MD Diagnosis: Last Documented On 4 3:30PM By Arlette Aj ; [facility] Isosorbide Mononitrate ER 30 MG Oral Tablet Extended Release 24 Hour Provider: Colton estrella MD Diagnosis: Last Documented On 4 2:30PM By Gloria Morris PA-C ; [facility] Current Medications (continue as prescribed) Trelegy [...] Shubham Patel APRN ; [facility] Levocetirizine Dihydrochlori de 5 MG Oral Tablet 05/13/2023 Provider: Shubham Patel APRN Diagnosis: Allergic rhiniti s, unspecified 1 once daily Last Documented On 4 2:24PM By Shubham Patel APRN ; [facility] Albuterol Sulfate HFA 108 (90 Base) MCG/ACT Inhalation Aerosol Solution 07/19/2022 Provider: Frannie Guidry DNP GENERATOR SWITCHBOARD OPERATOR-BC Diagnosis: Shortness of tristin ath 2 [...] Gloria Morris PA-C ; [facility] Past Medications on file dilTIAZem HCl ER Coated Beads 240 MG Oral Capsule Extended Release 24 Hour 07/07/2023 - 08/06/2023 Provider: Colton Guardado MD Diagnosis: 1 once daily Last Documented On 4 10:28AM By Neo Lovelace ; [facility] Trelegy Ellipta 100-62.5-25 MCG/ACT Inhalation Aerosol Powder Breath Activated 11/19/2022 - 08/16/2023 Provider: Zofia BECKER Diagnosis: Chronic obstruct ana m pulmonary disease, unspecified 1 puff daily Last Documented On 3 12:17PM By Zofia Barrios APRN ; [facility] Nebulizer/Tubing/Mouthpiece Kit 08/08/19 23 - 12/05/2022 Provider: Sommer BECKER Diagnosis: Chronic obstruct ana m pulmonary disease, unspecified use as directed Last Documented On 3 5:13PM By Lauryn Parr ; [facility] Zetia 10 MG Oral Tablet 04/17/2022 - 01/12/2023 Provider: Colton Guardado MD Diagnosis: Hyperlipidemia, unspecified 1 once daily Last Documented On 3 3:05PM By Sean Plascencia ; [facility] Clobetasol Propionate 0.05% External Cream 01/17/2021 - 03/18/2021 Provider: Smiley BECKER 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 Do not apply to face or groin Last Documented On 1 1:43PM By ROSITA Blackburn ; [facility] Medications Administered Includes: [...] 95 Last Documented: On 06/16/2023 2:06PM ; [facility] Results Includes: Results discussed during this encounter Vitamin B12 ORCHARD IHL Ordered by Gloria anand PA-C on 05/20/[address] [place] [address], [phone] Collected: 05/20/2023 Report ed: 05/20/2023 15:04 tel: Last Documented On 4 3:03PM ; [facility] Reviewed by Gloria escalante PA-C on 06/16/2023; [...] Note: The above testing was completed at [facility], [address] [place] [id number] (CLIA#[id number]) PH#: VITAMIN B-12 509 pg/mL (034-896) None Last Documented On 4 12:37PM ; [facility] FOLATE ORCHARD IHL Ordered by Gloria anand PA-C on 05/20/[address] [place] [address], [phone] Collected: 05/20/2023 Report ed: 05/20/2023 15:13 tel: Last Documented On 4 3:03PM ; [facility] Reviewed by Gloria escalante PA-C on 06/16/2023; [...] Note: The above testing was completed at [facility], [address] [place] [phone] (CLIA#[id number]) PH#: FOLATE 8.1 ng/mL (>3.0) None Last Documented On 4 12:37PM ; [facility] SED RATE, iSED ORCHARD IHL Ordered by Gloria anand PA-C on 05/20/[address] [place] [address], [phone] Collected: 05/20/2023 Report ed: 05/20/2023 14:00 tel: Last Documented On 4 3:03PM ; [facility] Reviewed by Gloria escalante PA-C on 06/16/2023; [...] Note: The above testing was completed at [facility], [address] [place] [address] (CLIA#[id number]) PH#: SED_RATE 2 mm/hr (0-19) None Last Documented On 4 12:37PM ; [facility] Hepatitis A Ab, IgM ORCHARD IHL Ordered by Gloria anand PA-C on 05/20/[address] [place] [address], [phone] Collected: 05/20/2023 Report ed: 05/20/2023 15:46 tel:[phone] Last Documented On 4 3:03PM ; [facility] Reviewed by Gloria escalante PA-C on 06/16/2023; [...] Note: The above testing was completed at [facility], [address] [place] [address] (CLIA#[id number]) PH#: Hep A Ab, IgM Non-Reactive COI (Non-Reactive) None Last Documented On 4 12:37PM ; [facility] Hepatitis A Ab, Total ORCHARD IHL Ordered by Gloria anand PA-C on 05/20/[address] [place] [address], [address] Collected: 05/20/2023 Report ed: 05/20/2023 15:46 tel:[phone] Last Documented On 4 3:03PM ; [facility] Reviewed by Gloria escalante PA-C on 06/16/2023; [...] Note: The above testing was completed at [facility], [id number] [place] [address] (CLIA#[id number]) PH#: Hep A Ab, Total Non-Reactive COI (Non-Reactive) None Last Documented On 4 12:37PM ; [facility] Hepatitis B Surface Ag ORCHARD IHL Ordered by Gloria anand PA-C on 05/20/[address] [place] [address], [address] Collected: 05/20/2023 Report ed: 05/20/2023 15:46 tel:[phone] Last Documented On 4 3:03PM ; [facility] Reviewed by Gloria escalante PA-C on 06/16/2023; [...] Note: The above testing was completed at [facility], [id number] [place] [address] (CLIA#[id number]) PH#: Hep B Surface Ag Non-Reactive COI (Non-Reactive) None Last Documented On 4 12:37PM ; [facility] Hepatitis B Core Ab, Tot ORCHARD IHL Ordered by Gloria anand PA-C on 05/20/[address] [place] [address] [place], [address] Collected: 05/20/2023 Report ed: 05/20/2023 15:46 tel:[phone] Last Documented On 4 3:03PM ; [facility] Reviewed by Gloria escalante PA-C on 06/16/2023; [...] Note: The above testing was completed at [facility], [address] [place] [address] (CLIA#[id number]) PH#: Hep B Core Ab, Total Non-Reactive COI (Non-Reactive) None Last Documented On 4 12:37PM ; [facility] Hepatitis B Core Ab, IgM ORCHARD IHL Ordered by Gloria anand PA-C on 05/20/[address] [place] [address], [address] Collected: 05/20/2023 Report ed: 05/20/2023 15:46 tel:[phone] Last Documented On 4 3:03PM ; [facility] Reviewed by Gloria escalante PA-C on 06/16/2023; [...] Note: The above testing was completed at [facility], [address] [place] [address] (CLIA#[id number]) PH#: Hep B Core Ab, IgM Non-Reactive COI (Non-Reactive) None Last Documented On 4 12:37PM ; [facility] COMPLETE BLOOD COUNT ORCHARD IHL Ordered by Gloria anand PA-C on 05/20/[address] [place] [address], [address] Collected: 05/20/2023 Report ed: 05/20/2023 14:12 tel:[phone] Last Documented On 4 3:03PM ; [facility] Reviewed by Gloria escalante PA-C on 06/16/2023; [...] Note: The above testing was completed at [facility], [address] [place] [address] (CLIA#[id number]) PH#: BASO # 0.0 3/UL (0.0-0.2) None Last Documented On 4 12:37PM ; [facility] BASO% 0.4 % None Last Documented On 4 12:37PM ; [facility] EOS # 0.4 3/UL (0.0-0.7) None Last Documented On 4 12:37PM ; [facility] EOS% 5.5 % None Last Documented On 4 12:37PM ; [facility] HCT 46.2 % (42.0-52.0) None Last Documented On 4 12:37PM ; [facility] HGB 14.8 g/dL (14.0-18.0) None Last Documented On 4 12:37PM ; [facility] LYMPH# 2.1 3/UL (0.9-4.8) None Last Documented On 4 12:37PM ; [facility] LYMPH % 30.1 % None Last Documented On 4 12:37PM ; [facility] MCH 30.0 PG (27.0-31.0) None Last Documented On 4 12:37PM ; [facility] MCHC 32.0 g/dL (32.0-37.0) None Last Documented On 4 12:37PM ; [facility] MCV 93.7 fL (80.0-94.0) None Last Documented On 4 12:37PM ; [facility] MONO# 0.6 3/UL (0.0-1.1) None Last Documented On 4 12:37PM ; [facility] MONO% 8.2 % None Last Documented On 4 12:37PM ; [facility] NEUT # 4.0 3/UL (2.2-8.1) None Last Documented On 4 12:37PM ; [facility] NEUT % 55.5 % None Last Documented On 4 12:37PM ; [facility] PLT 246 3/UL (130-400) None Last Documented On 4 12:37PM ; [facility] RBC 4.93 6/UL (4.20-5.60) None Last Documented On 4 12:37PM ; [facility] RDW 12.6 % (11.0-15.0) None Last Documented On 4 12:37PM ; [facility] WBC 7.1 3/UL (4.3-10.8) None Last Documented On 4 12:37PM ; [facility] Vitamin D, 25-Hydroxy ORCHARD IHL Ordered by Gloria anand PA-C on 05/20/2023 [address] [facility], [place], [address] Collected: 05/20/2023 Report ed: 05/20/2023 15:05 tel: Last Documented On 4 3:03PM ; [facility] Reviewed by Gloria escalante PA-C on 06/16/2023; [...] Note: The above testing was completed at [facility], [address] [place] [address] (CLIA#[id number]) PH#: VIT D 25-HYDROXY 32.60 ng/mL (30.00-100.00) None Last Documented On 4 12:37PM ; [facility] Thyroxine (T4) Free, Direct, S ORCHARD I HL Ordered by Gloria anand PA-C on 05/20/[address] [place] [address], [address] Collected: 05/20/2023 Report ed: 05/20/2023 15:13 tel: Last Documented On 4 3:03PM ; [facility] Reviewed by Gloria escalante PA-C on 06/16/2023; [...] Note: The above testing was completed at [facility], [address] [place] [address] (CLIA#[id number]) PH#: FT4 (FREE THYROXINE) 1.00 ng/dL (0.80-1.80) None Last Documented On 4 12:37PM ; [facility] TSH ORCHARD IHL Ordered by Gloria anand PA-C on 05/20/[address] [place] [address], [phone] Collected: 05/20/2023 Report ed: 05/20/2023 15:19 tel:[phone] Last Documented On 4 3:03PM ; [facility] Reviewed by Gloria escalante PA-C on 06/16/2023; [...] Note: The above testing was completed at [facility], [address] [place] [address] (CLIA#[id number]) PH#: TSH 2.96 mIU/mL (0.27-4.20) None Last Documented On 4 12:37PM ; [facility] Hemoglobin A1c ORCHARD IHL Ordered by Gloria anand PA-C on 05/20/[address] [place] [address], [address] Collected: 05/20/2023 Report ed: 05/20/2023 15:05 tel:[phone] Last Documented On 4 3:03PM ; [facility] Reviewed by Gloria escalante PA-C on 06/16/2023; [...] Note: The above testing was completed at [facility], [address] [place] [address] (CLIA#[id number]) PH#: HEMOGLOBIN A1C 6.8 % (0.0-6.4) H (High) Last Documented On 4 12:37PM ; [facility] Note: < 5.7 Decreased risk of diabetes 5 .7-6.0 Increased risk of diabetes 6.1-6.4 High risk of diabetes > or = 6.5 Consistant with diabetes Basic Metabolic Panel (8) ORCHARD L Ordered by Gloria anand PA-C on 05/20/[address] [place] [address], [id number] Collected: 05/20/2023 Report ed: 05/20/2023 18:35 tel: Last Documented On 4 3:03PM ; [facility] Reviewed by Gloria escalante PA-C on 06/16/2023; [...] Note: The above testing was completed at [facility], [address] [place] [address] (CLIA#[id number]) PH#: BUN/CREAT RATIO 16.2 CALC (6.0-25.0) None Last Documented On 4 12:37PM ; [facility] BUN 18.3 mg/dL (5.0-25.0) None Last Documented On 4 12:37PM ; [facility] CALCIUM 9.1 mg/dL (8.5-10.5) None Last Documented On 4 12:37PM ; [facility] CHLORIDE 104 mEq/L (95-108) None Last Documented On 4 12:37PM ; [facility] CARBON DIOXIDE 26 mEq/L (21-32) None Last Documented On 4 12:37PM ; [facility] CREATININE 1.13 mg/dL (0.50-1.50) None Last Documented On 4 12:37PM ; [facility] eGFR 66 mL/min/1.73m2 (>=60) None Last Documented On 4 12:37PM ; [facility] Note: The eGFR is based on the CKD-EPI 2 021 equation. To calculate the new eGFR from a previous Creatinine result, goto https://www.kidney.org/professionals/kdoqi/gfr_calculatorThe National Kidney Foundation recommends using the CKD-EPI Creatinine Equation (2020) to estimate GFR. More informationregarding this recommendation may be found:https://www.ajkd.org/article/C1197-75180045192-6/fulltext GLUCOSE 118 mg/dL (70-99) H (High) Last Documented On 4 12:37PM ; [facility] POTASSIUM 5.0 mEq/L (3.5-5.3) None Last Documented On 4 12:37PM ; [facility] SODIUM 141 mEq/L (135-146) None Last Documented On 4 12:37PM ; [facility] Albumin/Creat Ratio Urine ORCHARD IHL Ordered by Gloria anand PA-C on 05/20/2023 [id number] [facility], [place], [address] Collected: 05/20/2023 Report ed: 05/20/2023 16:34 tel: Last Documented On 4 3:03PM ; [facility] Reviewed by Gloria escalante PA-C on 06/16/2023; [...] Note: The above testing was completed at [facility] [employer] [facility], [address] [place] [id number] (CLIA#[id number]) PH#: ALB/CREAT RATIO 4.3 ug/mg (0.0-30.0) None Last Documented On 4 12:37PM ; [facility] ALBUMIN, URINE 6.9 mg/L (0.0-200.0) None Last Documented On 4 12:37PM ; [facility] CREATININE, URINE 159.5 mg/dl (20.0-300.0) None Last Documented On 4 12:37PM ; [facility] Hepatic Function Panel (7) ORCHARD IHL Ordered by Gloria anand PA-C on 05/20/[address] [place] [address], [address] Collected: 05/20/2023 Report ed: 05/20/2023 19:16 tel: Last Documented On 4 3:03PM ; [facility] Reviewed by Gloria escalante PA-C on 06/16/2023; [...] Note: The above testing was completed at [facility] [employer], [address] [place] [address] (CLIA#[id number]) PH#: A/G RATIO 1.7 CALC (1.1-2.3) None Last Documented On 4 12:37PM ; [facility] ALBUMIN 4.4 g/dL (3.5-5.2) None Last Documented On 4 12:37PM ; [facility] ALK. PHOSPHATASE 105 U/L (35-118) None Last Documented On 4 12:37PM ; [facility] ALT (SGPT) 21 U/L (0-41) None Last Documented On 4 12:37PM ; [facility] AST (SGOT) 16 U/L (0-40) None Last Documented On 4 12:37PM ; [facility] DIRECT BILIRUBN 0.10 mg/dL (0.00-0.40) None Last Documented On 4 12:37PM ; [facility] GLOBULIN 2.5 g/dL (1.9-4.2) None Last Documented On 4 12:37PM ; [facility] INDIRECT BILIRUBIN 0.21 mg/dL (0.10-0.80) None Last Documented On 4 12:37PM ; [facility] TOTAL BILIRUBIN 0.31 mg/dL (0.00-1.20) None Last Documented On 4 12:37PM ; [facility] TOTAL PROTEIN 6.9 g/dL (6.0-8.5) None Last Documented On 4 12:37PM ; [facility] Antinuclear Antibodies, IFA ORCHARD IHL Ordered by Gloria anand PA-C on 05/20/2023 [address] [place], [address] Collected: 05/20/2023 Report ed: 05/23/2023 10:01 tel: Last Documented On 4 3:03PM ; [facility] Reviewed by Gloria escalante PA-C on 06/16/2023; All test results are final unless otherwise noted. Review Note Provider Name Date reviewed today at OV Gloria Morris PA-C 07/2023 pt was notifies and sta beto she would let him know 05/27/2023 Note: [facility] [id number] performed at: [place], [facility], [address] [place], [address], Performance Architect:DR. Betsy HuffmanQuest Collection Date/Time: [id number] Results Received Date/Time: [id number] Reported Date/Time: [id number]: NO NEETA SCREEN, IFA NEGATIVE (NEGATIVE) None Last Documented On 12:37PM ; [facility] Note: NEETA IFA is a first line [...] clinicallysuspected inflammatory myopathies.AC-0: NegativeInternational Consensus on NEETA Patterns(https://doi.org/10.1515/renb-9882-6361)Fo r additional information, please refer tohttp://education.[employer]/faq/BLJ619 (This link is being provided for informational/educational purposes only.) RPR ORCHARD IHL Ordered by Gloria anand PA-C on 05/20/2023 [address] [place], [place], [address] Collected: 05/20/2023 Report ed: 05/23/2023 10:01 tel: Last Documented On 4 3:03PM ; [facility] Reviewed by Gloria escalante PA-C on 06/16/2023; All test results are final unless otherwise noted. Review Note Provider Name Date reviewed today at Gloria Morris PA-C 07/2023 pt was notifies and sta beto she would let him know 05/27/2023 Note: [facility] [id number] [facility] at: [facility], [address] [place], [place], , Performance Architect: Jose Ga Collection Date/Time: [id number] Results Received Date/Time: [id number] Reported Date/Time: [id number]: NO RPR (MONITOR) W/REFL TITER NON-REACTIVE (NON-REACTIVE) None Last Documented On 4 12:37PM ; [facility] Protein Electro.,S ORCHARD IHL Ordered by Gloria anand PA-C on 05/20/2023 [address] [place], [address] Collected: 05/20/2023 Report ed: 05/23/2023 10:01 tel: Last Documented On 4 3:03PM ; [facility] Reviewed by Gloria escalante PA-C on 06/16/2023; All test results are final unless otherwise noted. Review Note Provider Name Date reviewed today at Gloria Morris PA-C 07/2023 pt was notifies and sta beto she would let him know 05/27/2023 Note: [facility] [id number] performed at: [facility], [address], [place], [place], , Performance Architect: Jose Ga Collection Date/Time: [id number] Results Received Date/Time: [id number] Reported Date/Time: [id number]: NO PROTEIN, TOTAL 7.0 g/dL (6.1-8.1) None Last Documented On 4 12:37PM ; [facility] ALBUMIN 3.9 g/dL (3.8-4.8) None Last Documented On 4 12:37PM ; [facility] ALPHA 1 GLOBULIN 0.3 g/dL (0.2-0.3) None Last Documented On 4 12:37PM ; [facility] ALPHA 2 GLOBULIN 0.7 g/dL (0.5-0.9) None Last Documented On 4 12:37PM ; [facility] GAMMA GLOBULIN 1.1 g/dL (0.8-1.7) None Last Documented On 4 12:37PM ; [facility] INTERPRETATION SEE NOTE None Last Documented On 4 12:37PM ; [facility] Note: Possible monoclonal protein (M-pro tein) present.Suggest serum immunofixation. ABNORMAL PROTEIN BAND 1 0.2 g/dL (NONE DETECTED) H (High) Last Documented On 4 12:37PM ; [facility] BETA 1 GLOBULIN 0.5 g/dL (0.4-0.6) None Last Documented On 4 12:37PM ; [facility] BETA 2 GLOBULIN 0.5 g/dL (0.2-0.5) None Last Documented On 4 12:37PM ; [facility] Protein Electro, Random Urine ORCHARD IH L Ordered by Gloria anand PA-C on 05/20/2023 [id number] [place], [address] Collected: 05/20/2023 Report ed: 05/27/2023 09:40 tel: Last Documented On 4 3:03PM ; [facility] Reviewed by Gloria escalante PA-C on 06/16/2023; All test results are final unless otherwise noted. Review Note Provider Name Date reviewed today at OV Gloria Morris PA-C 07/2023 Note: [facility] [id number] performed at: , [facility], [facility] [place], [address], Performance Architect: Jose Sheridan MDQuest Collection Date/Time: [id number] Results Received Date/Time: [id number] Reported Date/Time: [id number]: NO CREATININE, RANDOM URINE 148 mg/dL (20-320) None Last Documented On 4 12:37PM ; [facility] PROTEIN/CREATININE RATIO 74 mg/g_creat (25-148) None Last Documented On 4 12:37PM ; [facility] PROTEIN, TOTAL, RANDOM UR 11 mg/dL (5-25) None Last Documented On 4 12:37PM ; [facility] INTERPRETATION SEE NOTE None Last Documented On 4 12:37PM ; [facility] Note: Normal Pattern ALBUMIN 41 % None Last Documented On 4 12:37PM ; [facility] [id number]-8-[id number] 4 % None Last Documented On 4 12:37PM ; [facility] [id number]-5-TUFSZJEWX 14 % None Last Documented On 4 12:37PM ; [facility] BETA GLOBULINS 15 % None Last Documented On 4 12:37PM ; [facility] GAMMA GLOBULINS 26 % None Last Documented On 4 12:37PM ; [facility] PROTEIN/CREATININE RATIO 0.074 mg/mg_creat (0.025-0.148) None Last Documented On 4 12:37PM ; [facility] History of Present Illness Includes: History of [...] the above, with plans to relocate to [place], scheduled to depart on the 01 of [...] 05/13/2023 Last Documented On 4 1:56PM ; [facility] Lives with spouse 05/28/2022 Last Documented On 4 1:56PM ; [facility] Outdoor activites GOLF 11/17/2019 Last Documented On 4 1:56PM ; [facility] No use of tanning lights 11/17/2019 Last Documented On 4 1:56PM ; [facility] Using sunscreen 11/17/2019 Last Documented On 4 1:56PM ; [facility] What SPF do you wear 50 11/17/2019 Last Documented On 4 1:56PM ; [facility] Retired from work 04/28/2019 Last Documented On 4 1:56PM ; [facility] 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 Last Documented On 4 1:56PM ; [facility] Sun exposure: Burn sometimes, henriquez easily 04/02/2018 Last Documented On 4 1:56PM ; [facility] Past sun exposure: Moderate 03/19/2018 Last Documented On 4 1:56PM ; [facility] Present sun exposure: Moderate 8 Last Documented On 4 1:56PM ; [facility] Alcohol use: 2 drinks or less per day Last Documented On 4 1:56PM ; [facility] Former smoker 11/19/2017 Last Documented On 4 1:56PM ; [facility] Never used drugs 11/19/2017 Last Documented On 4 1:56PM ; [facility] AUDIT-C questionnaire was 0 06/20/2017 Last Documented On 4 1:56PM ; [facility] Alcohol use 2-3 drinks nightly 7 Last Documented On 4 1:56PM ; [facility] No living will 06/07/2016 Last Documented On 4 1:56PM ; [facility] Smoking status : Former smoker Quit in 1 982 [id number] 1PPD 06/07/2016 Last Documented On 4 1:56PM ; [facility] Pets in the home 06/29/2015 Last Documented On 4 1:56PM ; [facility] Alcohol Social drinker 06/29/2015 Last Documented On 4 1:56PM ; [facility] Caffeine use 1 cup daily 06/29/2015 Last Documented On 4 1:56PM ; [facility] Currently 06/29/2015 Last Documented On 4 1:56PM ; [facility] Occupation was unknown 06/29/2015 Last Documented On 4 1:56PM ; [facility] Not a current smoker 12/27/2013 Last Documented On 4 1:56PM ; [facility] Not using drugs 12/27/2013 Last Documented On 4 1:56PM ; [facility] A previous history of smoking 09/04/2012 Last Documented On 4 1:56PM ; [facility] Alcohol use 09/04/2012 Last Documented On 4 1:56PM ; [facility] Cigarette smoking for an unknown number of pack-years 08/14/2012 Last Documented On 4 1:56PM ; [facility] Not smoking 08/14/2012 Last Documented On 4 1:56PM ; [facility] Procedures and Surgical History Includes: Procedures from this encounter Procedures Code Diagnosis Performing Provider Service Location Service Date Complex e/m visit add on G2211 Primary osteoarthritis, unspecified site Gloria Morris PA-C [facility] 06/16/2023 Last Documented On 4 3:27PM ; [facility] Most recent diastolic < 80 mm Hg 3078F Overweight, Body mass index [BMI] 28.0-28.9, adult Gloria Morris PA-C [facility] 06/16/2023 Last Documented On 4 4:48AM ; [facility] Most recent systolic < 130 mm Hg 3074F Overweight, Body mass index [BMI] 28.0-28.9, adult Gloria Morris PA-C [facility] 06/16/2023 Last Documented On 4 4:50AM ; [facility] Body mass index docd 3008F Overweight, Body mass index [BMI] 28.0-28.9, adult Gloria Morris PA-C [facility] 06/16/2023 Last Documented On 4 4:51AM ; [facility] diastolic blood pressure < 80 mmHg 3078F Last Documented On 4 2:07PM ; [facility] systolic blood pressure < 130 mmHg 3074F Last Documented On 4 2:07PM ; [facility] body mass index documented 3008F Last Documented On 4 2:07PM ; [facility] Surgical History Last Updated History of heart surgery Heart ablation - 09/201506/07/2016 Last Documented On 4 1:56PM ; [facility] No history of surgery 06/29/2015 Last Documented On 4 1:56PM ; [facility] Medical History Includes: Medical History addressed during this encounter Description Last Updated History of chronic obstructive pulmonary disease 07/10/2021 Last Documented On 4 1:56PM ; [facility] History of systemic hypertension 022 Last Documented On 4 1:56PM ; [facility] Basal cell carcinoma of the skin 020 Last Documented On 4 1:56PM ; [facility] Hearing loss 11/17/2019 Last Documented On 4 1:56PM ; [facility] History of arthritis 11/17/2019 Last Documented On 4 1:56PM ; [facility] History of coronary artery disease 11/16 Last Documented On 4 1:56PM ; [facility] LT elbow calcium deposit removal - 1975 ~Lorenzo cataract removal - 201506/07/2016 Last Documented On 4 1:56PM ; [facility] Advance healthcare directive in chart Last Documented On 4 1:56PM ; [facility] 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 09/04/2012 Last Documented On 4 1:56PM ; [facility] History of chronic reflux esophagitis Last Documented On 4 1:56PM ; [facility] History of colonic diverticulosis 2012 Last Documented On 4 1:56PM ; [facility] History of hyperlipidemia 09/04/2012 Last Documented On 4 1:56PM ; [facility] Stomach problems 09/04/2012 Last Documented On 4 1:56PM ; [facility] No history of diabetes mellitus 08/15/19 Last Documented On 4 1:56PM ; [facility] No history of skin cancer 08/14/2012 Last Documented On 4 1:56PM ; [facility] Family History Includes: Family History addressed during this encounter Description Last Updated Paternal history of essential hypertensi on 05/30/2021 Last Documented On 4 1:56PM ; [facility] Paternal history of family history of is chemic heart disease 12/01/2020 Last Documented On 4 1:56PM ; [facility] Maternal history of arthritis 03/19/2018 Last Documented On 4 1:56PM ; [facility] Maternal history of stroke syndrome TIA 06/07/2016 Last Documented On 4 1:56PM ; [facility] Paternal history of paternal history CHF 06/07/2016 Last Documented On 4 1:56PM ; [facility] 1 daughter(s) living 06/07/2016 Last Documented On 4 1:56PM ; [facility] 1 son(s) living 06/07/2016 Last Documented On 4 1:56PM ; [facility] Brother(s) living x1 06/07/2016 Last Documented On 4 1:56PM ; [facility] Father at age 64 06/07/2016 Last Documented On 4 1:56PM ; [facility] Mother at age 86 06/07/2016 Last Documented On 4 1:56PM ; [facility] Sister(s) living x2 06/07/2016 Last Documented On 4 1:56PM ; [facility] Family history of allergies Self 016 Last Documented On 4 1:56PM ; [facility] Family history of cancer Mother 06/29/19 16 Last Documented On 4 1:56PM ; [facility] Family history of hearing loss Self 06/12 Last Documented On 4 1:56PM ; [facility] No family history of asthma 06/29/2015 Last Documented On 4 1:56PM ; [facility] No family history of diabetes mellitus 0 06/29/2015 Last Documented On 4 1:56PM ; [facility] No family history of migraine headache 0 06/29/2015 Last Documented On 4 1:56PM ; [facility] No family history of tuberculosis 2015 Last Documented On 4 1:56PM ; [facility] Maternal history of family history of ca ncer Breast 11/29/2013 Last Documented On 4 1:56PM ; [facility] Family history of a history of cancer Last Documented On 4 1:56PM ; [facility] Family history of arthritis 09/04/2012 Last Documented On 4 1:56PM ; [facility] Family history of cardiac problems 09/04 Last Documented On 4 1:56PM ; [facility] No family history of breast cancer 08/14 Last Documented On 4 1:56PM ; [facility] No family history of colon cancer 2012 Last Documented On 4 1:56PM ; [facility] No family history of coronary artery dis ease 08/14/2012 Last Documented On 4 1:56PM ; [facility] No family history of prostate cancer 06/2012 Last Documented On 4 1:56PM ; [facility] No family history of skin cancer 013 Last Documented On 4 1:56PM ; [facility] Review of Systems Includes: Review of Systems [...] Active Last Documented On 4 2:04PM ; [facility] Encounters Encounter Provider Location Date Check-In Time Check-Out Time Diagnosis [facility] Medicare Follow Up Visit Gloria Morris PA-C [facility] 06/16/19 24 2:15PM 2:35PM Organic [...] m Dates 1 - Medicare Part B [id number] Nick Farnsworth Oliva Self 2 - [employer]/ [employer] [id number] Nick Farnsworth Oliva Self 07/13 - Unknown Advance Directives Includes: Current Advance Directives Directive Pat Aware Third Alliance Party Effective Date Reviewed [facility] Power of Breakfast Manager/Healthcare Surrogate Yes 08/08/2017 Current and Verified Clinical Notes Includes: Clinical Notes from this encounter * Progress note Date Encounter Last Documented by 06/16/2023 [facility] Medicare Follow Up Visit Sarah benítez documented on 06/16/2023; 3:00 PM, Gloria Morris PA-C; [facility] Active Problems & Conditions - Asthma - [...] the above, with plans to relocate to [place], scheduled to depart on the 01 of [...] Smoking status: Former smoker Quit in 1981 [id number] 1PPD. Alcohol: Alcohol Social drinker and alcohol [...] atrial fibrillation - Atherosclerotic heart disease of [place] coronary artery without angina pectoris - Chronic combined systolic (congestive) and diastolic (congestive) heart failure - Essential (primary) hypertension - Atherosclerosis of aorta - Atherosclerotic heart disease of [place] coronary artery with other forms of angina [...] previous stroke and/or peripheral neuropathy from [employer] exposure. - Possible orthostatic hypotension or vertigo. - Complicated case - Plan: Refer the patient to a neurologist for further evaluation, would consider possible tilt table test to assess for orthostatic hypotension. Additionally, refer the patient to [facility] for vestibular rehabilitation to address balance issues Labwork WNL - Advise patient to f/u with new PCP at the [facility] after reolcating to [facility] for further evluation - Post-traumatic stress disorder, [...] mg/dL INTERPRETATION SEE NOTE ALBUMIN 41 % [id number] 4 % [id number]-1-[id number] 14 % BETA GLOBULINS 15 % GAMMA [...] mmHg. Advance Directives - Healthcare Power of Breakfast Manager/Healthcare Surrogate Care Team - Narendra Campos MD - Family Practice - Smiley Garcia, ELECTRIC ARC FURNACE OPERATOR - Nurse Practitioner - Dane Rasmussen MD - [facility] Surgery - Maryan Landeros MD - Surgery - Mt Mistry DO - Pulmonary Disease - Bora Gar MD - Vascular Surgery - Sylvester Morgan MD - Neurology - Gloria Morris PA-C - Physician Vertical Punch Operator - Colton Guardado MD - Cardiology - Martinez Kohler MD - Gastroenterology - [facility] - Hematology & Oncology - Deni Bernabe MD - Orthopaedic Surgery of the Spine - Merle Villanueva MD - Pulmonary Disease - Christ Moulton III MD - Orthopaedic Surgery
--- OUTSIDE RECORDS SUMMARY | 2024-05-27 10:40 | XMS_ITS | Clinical Summary ---
Author Organization [facility] Address [address] [place] [address] Phone Care Team Providers Care Tractor Trailer Operator Name Role Phone & Sports Medicine, [facility] Unavailable + [phone] Kenney PARK MD, Christ Hernandez Unavailable +[phone] Leti CUELLO, Maryan Rose Unavailable [phone] Junaid CUELLO, Bora Unavailable [phone] Andres CUELLO, Narendra Primary Care Provider [phone] Deni Bernabe MD Unavailable [phone] Gloria Morris PA-C Unavailable +[phone] Edita CUELLO, Martinez Unavailable [phone] Cathy CUELLO, Sylvester Penaloza Unavailable + [phone] Smiley Calderon Unavailable [phone] Valery CUELLO, Dane Unavailable [phone] Colton Guardado MD Unavailable [phone] Mt Mistry DO Unavailable [phone] Kay CUELLO, Merle Unavailable [phone] Reason for Visit and Chief Complaint [facility] Medicare Follow Up Visit Problems Includes: Problems addressed during this encounter and other active Problems All Visits Onset Date Resolved Date Provider Condition S tatus 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 06/25/2021 Gloria Morris PA-C Active Last Documented On 04/02/2022 10:30AM ; [facility] Note: 50-69% left, non surgical [place] [address] gar, repeat in one year Diabetes Mellitus Type 2 with Complication 06/25/2021 Gloria BEARC Active Last Documented On 2 10:45AM ; [facility] Chronic Respiratory Failure 07/04/2020 Narendra miramontes MD Active Last Documented On 07/04/2020 11:28AM ; [facility] Note: on continuous home oxygen Coronary Artery Disease 04/21/2019 Jessica MODIP Active Last Documented On 0 8:03AM ; [facility] Atherosclerosis Coronary Art maryann with Angina Pectoris 01/15/2019 Gloria MOFFETT-C Active Last Documented On 9 9:21AM ; [facility] Edema 01/14/2019 Philip BECKER Active Last Documented On 9 2:52PM ; [facility] 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 Gloria MOFFETT-C Active Last Documented On 9 8:57AM ; [facility] Note: per pulm notedECHO with 45-50%, mi ldly reduced LVSF 06/2017 Osteoarthritis Localized Primary Knees Bilateral 04/03/2018 Juany MOFFETT-C Active Last Documented On 8 11:45AM ; [facility] 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 Narendra Campos MD Active Last Documented On 8 11:49AM ; [facility] Colon Polyps 06/20/2017 Martinez Kohler MD Active Last Documented On 8 11:24AM ; [facility] Atrial Fibrillation 10/10/2015 Narendra Campos MD Active Last Documented On 6 9:16AM ; [facility] Note: s/p ablation Chronic Obstructive Pulmonary Disease 11/29/2013 Narendra Campos MD Active Last Documented On 4 2:43PM ; [facility] Post-traumatic Stress Disorder 11/29/2013 Jt Campos MD Active Last Documented On 4 10:39AM ; [facility] Patellar Chondromalacia 03/02/2013 Narendra baltazar MD Active Last Documented On 4 7:42AM ; [facility] Note: Unchanged Asthma 09/04/2012 Narendra Campos MD Activ e Last Documented On 4 7:42AM ; [facility] Atherosclerosis Aorta 03/26/2012 Narendra mendez MD Active Last Documented On 4 7:42AM ; [facility] Note: on ct scan Rhinitis 08/04/2009 Narendra Campos MD Activ e Last Documented On 4 7:42AM ; [facility] Note: Unchanged Esophagitis Chronic Reflux 07/28/2009 Gloria Morris PA-C Active Last Documented On 4 2:20PM ; [facility] Note: Unchanged Hypertension Systemic 07/28/2009 Norma PANDEY Active Last Documented On 0 6:29PM ; [facility] Note: Unchanged Colonic Diverticulosis 10/06/2007 Narendra oconnor MD Active Last Documented On 4 7:42AM ; [facility] Note: Unchanged Hyperlipidemia Mixed 10/06/2007 Narendra gomez MD Active Last Documented On 4 7:42AM ; [facility] Note: Unchanged Plan of Treatment Pending Tests Order Diagnosis Results Due Ordering P rovider Lab Neuropathy (RO) 04/29/23 Gloria Morris PA-C Last Documented On 4 3:03PM ; [facility] Lab Hemoglobin A1c 04/29/23 Gloria Morris PA-C Last Documented On 4 3:03PM ; [facility] Lab Antinuclear Antibodies, IFA 04/29/23 Gloria Morris PA-C Last Documented On 4 3:03PM ; [facility] Lab Vitamin B12 04/29/23 Gloria Chino Arturo PA-C Last Documented On 4 3:03PM ; [facility] Lab Basic Metabolic Panel (8) 04/29/23 Gloria Raman Morris PA-C Last Documented On 4 3:03PM ; [facility] Lab COMPLETE BLOOD COUNT 04/29/23 Janay garcias Raman Morris PA-C Last Documented On 4 3:03PM ; [facility] Lab SED RATE, iSED 04/29/23 Glorianatividad thurmanpatricia Morris PA-C Last Documented On 4 3:03PM ; [facility] Lab Folate (Folic Acid), Serum 04/29/23 Gloria Raman MOFFETT-C Last Documented On 4 3:03PM ; [facility] Lab Thyroxine (T4) Free, Direct, S 04/29 Gloria Morris PA-C Last Documented On 4 3:03PM ; [facility] Lab Hepatitis A Ab, IgM 04/29/23 Christopher mckeon Raman Morris PA-C Last Documented On 4 3:03PM ; [facility] Lab Hepatitis A Ab, Total 04/29/23 Miguel henson Raman Morris PA-C Last Documented On 4 3:03PM ; [facility] Lab Hepatitis B Core Ab, Tot 04/29/23 Gloria Morris PA-C Last Documented On 4 3:03PM ; [facility] Lab Hepatitis B Surface Ag 04/29/23 helen Morris PA-C Last Documented On 4 3:03PM ; [facility] Lab HEPATITIS B CORE AB TOTAL W/REFL IGM 04/29/23 Gloria Morris PA-C Last Documented On 4 3:03PM ; [facility] Lab Hepatitis B Core Ab, IgM 04/29/23 Gloria Morris PA-C Last Documented On 4 3:03PM ; [facility] Lab Hepatic Function Panel (7) 04/29/23 Gloria Wileytoni MOFFETT-Shaila Last Documented On 4 3:03PM ; [facility] Lab Albumin/Creat Ratio Urine 04/29/23 Gloria Wileytoni Morris PA-C Last Documented On 4 3:03PM ; [facility] Lab RPR 04/29/23 Glorianatividad Morris PA-C Last Documented On 4 3:03PM ; [facility] Lab Protein Electro.,S 04/29/23 Gloria Raman MOFFETT-Shaila Last Documented On 4 3:03PM ; [facility] Lab TSH 04/29/23 Gloria Morris PA-C Last Documented On 4 3:03PM ; [facility] Lab Protein Electro, Random Urine Glorianatividad Morris PA-C Last Documented On 4 3:03PM ; [facility] Lab Vitamin D, 25-Hydroxy 04/29/23 Miguel henson Raman Morris PA-C Last Documented On 4 3:03PM ; [facility] Care Programs Check if Patient is Eligible for [facility] Services Last Documented On 8 12:04AM ; [facility] Future Tests Order Diagnosis Results Due Ordering Pr ovider Radiology Studies - Ultrasound U/S-Soft 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 04/18/21 Gloria Morris PA-C Last Documented On 1 10:13AM ; [facility] Radiology Studies - Vascular Ultrasound Carotid Doppler Dizziness and giddiness 05/15/21 Gloria MOFFETT-Shaila Last Documented On 2 10:33AM ; [facility] Refer To Neurology Dizziness and giddiness 06/07/21 Tremaine MOFFETT-Shaila Last Documented On 2 1:34PM ; [facility] Refer To ENT Dizziness and giddiness 06/07/21 Tremaine MOFFETT-C Last Documented On 2 1:34PM ; [facility] Refer To Cardiology Cardiac arrhythmia, unspecified 05/16 08/03 Gloria MOFFETT-C Last Documented On 2 1:49PM ; [facility] Refer To Surgery-Vascular Occlusion and s tenosis of left carotid artery 06/20/21 Gloria Morris PA-C Last Documented On 2 9:10AM ; [facility] Refer To Gastroenterology Polyp of colon 12/12/22 Janay garcias Raman MOFFETT-C Last Documented On 3 1:44PM ; [facility] Lab NEETA (RO1) 04/29/23 Gloria MOFFETT-C Last Documented On 4 8:52AM ; [facility] Lab CBC (RO1) 04/29/23 Gloria MOFFETT-C Last Documented On 4 8:52AM ; [facility] Lab Vitamin B12 (RO1) 04/29/23 Gloria Morris PA-C Last Documented On 4 8:52AM ; [facility] Lab Vitamin D 25 hydroxy (RO1) 04/29/23 Gloria MOFFETT-C Last Documented On 4 8:52AM ; [facility] Lab TSH , Free T4 (GVC) 04/29/23 Christopher linda Raman MOFFETT-Shaila Last Documented On 4 8:52AM ; [facility] Lab Diabetes Panel (RO) 05/22/23 Ra helen MOFFETT-Shaila Last Documented On 3 1:28PM ; [facility] Refer To Neurology Dizziness and giddiness 05/22/23 Tremaine MOFFETT-Shaila Last Documented On 4 8:55AM ; [facility] Refer To Physical Therapy Dizziness and giddiness Gloria MOFFETT-C Last Documented On 4 8:55AM ; [facility] Assessments Includes: Assessments from this encounter [...] 2:24PM By Shubham Patel APRN ; [facility] Albuterol Sulfate HFA 108 (9 0 Base) MCG/ACT Inhalation Aerosol Solution 05/13/2023 Provider: Brittany Patel APRN Diagnosis: Shortness of tristin ath 2 puffs q4h prn Last Documented On 4 2:24PM By Shubham Patel APRN ; [facility] Levocetirizine Dihydrochlori de 5 MG Oral Tablet 05/13/2023 Provider: Shubham Patel APRN Diagnosis: Allergic rhiniti s, unspecified 1 once daily Last Documented On 4 2:24PM By Shubham Patel APRN ; [facility] Albuterol Sulfate HFA 108 (90 Base) MCG/ACT Inhalation Aerosol Solution 07/19/2022 Provider: Frannie MODI P DNP RESIN MIXER-BC Diagnosis: Shortness of tristin ath 2 puffs q4h prn Last Documented On 3 9:03AM By Frannie Garrison APRN ; [facility] Oxygen Inhalation Gas 04/02/2022 Provider: Diagnosis: Last Documented On 2 10:09AM By Gloria Morris PA-C ; [facility] Atorvastatin Calcium 80 MG Oral Tablet 02/20/2021 Provider: Gloria Briscoe Diagnosis: Mixed hyperlipid emia 1 once daily Last Documented On 2 9:52AM By Arlette Aj ; [facility] hydrALAZINE HCl 25 MG OR TABS 12/29/2020 Provider: Colton Guardado MD Diagnosis: every 8 hours as needed for for BP over 160 Last Documented On 2 9:53AM By Arlette Aj ; [facility] Metoprolol Succinate ER 50 M G Oral Tablet Extended Release 24 Hour 07/14/2020 Provider: Diagnosis: Last Documented On 1 4:45AM By Jessica BECKER ; [facility] Furosemide 20 MG OR TABS 06/24/2019 Provider: Keegan Guardado MD Diagnosis: 1 once daily Last Documented On 1 11:14AM By Aleah Cerda ; [facility] Fluticasone Propionate 50MCG/ACT Nasal Suspension 02/19/2019 Provider: Gloria Morris PA-C Diagnosis: Chronic sinusiti s, unspecified use as directed 2 sprays eac h nare daily Last Documented On 9 8:23AM By Savita Caal ; [facility] Primidone 50 MG OR TABS 10/13/2018 Provider: Supriya Lombardo DO Diagnosis: Tremor, unspecif ied 3po q HS Last Documented On 9 8:22AM By Savita Caal ; [facility] Sertraline HCl 100MG Oral Tablet 09/07/2017 Provider : Diagnosis: Last Documented On 8 2:34PM By Colton Guardado M.D. ; [facility] Aspirin EC Low Dose 81MG Oral Tablet Delayed Release 0 07/11/2016 Provider: Diagnosis: Last Documented On 7 4:19PM By Colton Guardado M.D. ; [facility] Pradaxa 150MG Oral Capsule 07/11/2016 Provider: Diagnosis: Last Documented On 7 4:15PM By Colton Guardado M.D. ; [facility] Temazepam 15 MG OR CAPS 07/20/2014 Provider: Janay Morris PA-C Diagnosis: Long-term use of high-risk meds. 1-2 qHS prn. Last Documented On 5 11:02AM By Gloria Morris PA-C ; [facility] Medications Administered Includes: Administered Medications from [...] Last Documented On 06/16/2023 2:04PM ; [facility] Note: facial lip swelling listaprill Allergy swollen 07/13/2020 Active Last Documented On 2:04PM ; [facility] Insurance Includes: Active Insurance Policies Plan Name Member ID Group # Subscriber Relationship Effect ana m Dates 1 - Medicare Part B [id number] Nick Oliva Self 2 - Common Wealth Serrnavarroe/ Jenniffer [id number] Nick Oliva Self 07/13 - Unknown Advance Directives Includes: Current Advance Directives Directive Pat Aware Third Constitution Party Effective Date Reviewed [facility] Power of Performing Arts Technicians/Healthcare Surrogate Yes 08/08/2017 Current and Verified Clinical Notes Includes: Clinical Notes from this encounter No Clinical Notes Recorded
--- OUTSIDE RECORDS SUMMARY | 2024-05-27 10:41 | XMS_ITS | Clinical Summary ---
Author Organization [facility] Address [address] [place] [address] Phone Care Team Providers Care Contract Processor Name Role Phone & Sports Medicine, [facility] Unavailable + [phone] Kenney PARK MD, Christ Hernandez Unavailable [phone] Leti CUELLO, Maryan Rose Unavailable [phone] Junaid CUELLO, Bora Unavailable [phone] Anrdes CUELLO, Narendra Primary Care Provider [phone] Florecita CUELLO, Deni Unavailable [phone] Gloria Morris PA-C Unavailable +[phone] Edita CUELLO, Martinez Unavailable [phone] Cathy CUELLO, Sylvester Penaloza Unavailable + [phone] Smiley Calderon Unavailable [phone] Valery CUELLO, Dane Unavailable [phone] Colton Guardado MD Unavailable [phone] Mt Mistry DO Unavailable [phone] Kay CUELLO, Merle Unavailable [phone] Reason for Visit and Chief Complaint CT [...] Medical Center Note: Unchanged Plan of Treatment Care Programs Check if Patient is [facility]ligible [facility] Last Documented On 8 12:04AM ; [facility] Assessments Includes: [...] Aerosol Solution 07/19/2022 Provider: Frannie Guidry DNP TITLE INSPECTOR-BC Diagnosis: Shortness of trisitn ath 2 puffs q4h prn Last Documented [...] Location Service Date CT thorax w/o contrast 36789 Other disorders of lung Ismael Starkey MD [facility] 06/04/2023 Last Documented On [...] Check-Out Time Diagnosis CT Thorax w/o Contrast [facility] 4 1:15PM 1:16PM Insurance Includes: Active Insurance Policies Plan Name Member ID Group # Subscriber Relationship Effect ana m Dates 1 - Medicare Part B [id number] Nick Javad Oliva Self 2 - Common Wealth Serrvice/ [employer]icare [id number] Nick Choeey Self 07/13 - Unknown Advance Directives Includes: Current Advance Directives Directive Pat Aware Third Libertarian Effective Date Reviewed [facility] Power of Java Systems Analyst/Healthcare Surrogate Yes 08/08/2017 Current and Verified Clinical Notes Includes: Clinical Notes from this encounter No Clinical Notes Recorded
--- OUTSIDE RECORDS SUMMARY | 2024-05-27 10:41 | XMS_ITS | Encounter Summary ---
Author Name [facility] [place] [facility] [place] Organization [facility] [place] Address [address] [place] [address] Care Team Providers Care Php Developer Name Role Phone ERNESTO ARBOLEDA Primary Care Provider UnavailTYOIN Escobar Primary Care Provider Unavailab le Insurance [...] PART A August 12, 2008 PART A [id number] [phone] Dawson YOUNGER PATIENT MEDICARE (WNR) MEDICARE (M) PART B August 12, 2008 PART B [id number] [phone] Dawson YOUNGER PATIENT MEDICARE (WNR) MEDICARE (M) PART B August 12, 2008 PART B [id number] Dawson YOUNGER PATIENT MEDICARE (WNR) MEDICARE (M) PART A August 12, 2008 PART A [id number] Dawson YOUNGER PATIENT MEDICARE (WNR) MEDICARE (M) PART A August 12, 2008 PART A [id number] Dawson YOUNGER PATIENT MEDICARE (WNR) MEDICARE (M) PART B August 12, 2008 PART B [id number] Dawson YOUNGER PATIENT MEDICARE (WNR) MEDICARE (M) PART B August 12, 2008 PART B [id number] Dawson YOUNGER PATIENT MEDICARE (WNR) MEDICARE (M) PART A August 12, 2008 PART A [id number] [phone] Dawson YOUNGER PATIENT MEDICARE (WNR) MEDICARE (M) PART A August 12, 2008 PART A [id number] Dawson YOUNGER PATIENT MEDICARE (WNR) MEDICARE (M) PART B August 12, 2008 PART B [id number] [phone] Dawson YOUNGER PATIENT MEDICARE PART D (WNR) PRESCRIPT ION PART D Apr 14, 2015 PART D [id number] Dawson YOUNGER PATIENT UNICARE PREFERRED PROVIDER ORGANIZAT ION (PPO) [facility] N August 12, 2008 [id number] Dawson YOUNGER PATIENT UNICARE MEDICARE SUPPLEMEN [facility] August 12, 2008 [id number] Dawson YOUNGER PATIENT UNICARE-G. I.C. MEDICAL EXPENSE (OPT/PROF ) [facility] August 12, 2008 [id number] [id number] [phone] Dawson YOUNGER PATIENT Selected Encounter This section includes the information on record at [place] for the Encounter. Date/Time Encounter Type Encounter Description Reason Provider Source May 26, 2024 03:01 PM OFFICE O/P EST LOW 20 MIN [facility] - IND ICD-10-CM F43.10 Post-traumatic stress disorder, unspecified LIU HERNANDEZ Javad Encounter Template Text not used by [place] Assessments - Encounter Diagnoses This section includes the primary and secondary diagnoses documented for the Encounter. Date/Time Primary/Secondary Diagnosis Diagnosis Name Provider Source May 26, 2024 03:11 PM PRIMARY Post-traumatic stress disorder, unspecified LIU HERNANDEZ SONYA May 26, 2024 03:11 PM SECONDARY Unspecified dementia, moderate, with anxiety LIU HERNANDEZ [place] Plan of Treatment: Future Appointments (+ 6 months) and Future Tests (+/- 45 days) The Plan of Treatment section includes future care activities for the patient from all [place] treatmentfacilities. This section includes future appointments and future orders which are active, pending or scheduled. Future Appointments This section includes appointments that were scheduled to occur 6 months from the date of the Encounter, up to a maximum of 20 appointments. The data comes from all [place] treatment facilities. Appointment Date/Time Appointment Type Appointme nt Facility Name Jun 22, 2024 01:00 PM AMBULATORY - MEDICINE [facility] Jun 22, 2024 03:00 PM [facility] NONE [place] [facility] Sep 14, 2024 02:30 PM [facility] [place] [facility] Advance Directives: All historical [...] August 25, 2023 ADVANCE DIRECTIVE MICHELLE LEVINE [facility] Encounter Notes: All associated encounter notes This section contains the clinical notes associated to the Encounter. Date/Time Encounter Note(s) Provider Source May 26, 2024 02:55 PM PSYCHIATRY NOTE: LOCAL TITLE: PSYCHIATRY NOTE STANDARD TITLE: PSYCHIATRY NOTE DATE OF NOTE: MAY 26, 2024@14:55 ENTRY DATE: MAY 26, 2024@15:01:42 AUTHOR: LIU HERNANDEZ EXP COSIGNER: URGENCY: STATUS: COMPLETED LOCATION: This is a CVT visit, patient was in the [facility] and seen by myself remotely from my home via synchronous telehealth equipment operated from the clinic with staff assistance. gave their permission to hold visit via this equipment. CHART REVIEW: seen for initial MH consult 09/23/23, noting: Elbert is an 78 year old , , 100% [place] looking to transfer his PTSD treatment from [place] to here after relocating. He is only [...] about balance and falling. He shared with process description writer an acute injury where he injured his back about two weeks ago and did not go to the ER to be evaluated. Compliance Tester will place neuropsychological consult to assess his cognition and advised him to stop to be triaged by the nurse on his way out to assess his back injury. Still gets nightmares-- maybe once a month. Tries to avoid things that will remind him of it. DSM5 DIAGNOSES: PTSD, chronic SC: 70% for PTSD. Per Social Work intake, reported: We were living in [place] for 18yrs, in [place], the weather just became too difficult for me bc of my breathing. I was in the hospital for a week last year bc of my COPD and asthma. When I told my that I thought it was time to move back, she didn't waste a minute to call her friends and tell them, she is very happy. They bought a home in [place], the same city they used to live in. They have friends and family here, some of their children and grandchildren are in [facility]. SC: POST-TRAUMATIC STRESS DISORDER (70%-SC) PRESENTATION AT TIME OF INITIAL VISIT WITH MYSELF 11/13/23: Elbert reports he and his moved from [place] in July 2023, noting he was originally from [facility] but moved to [place] after he retired and has returned here [...] including chronic hypoxemic respiratory failure due to end- stage COPD, y 2 L O2 dependent at [...] CCB for ventricular rate control. + Agent Med[place] exposure Then noted October 2023: 2. Chronic hypoxemic respiratory failure: 3. COPD - Chronic obstructive pulmonary disease: 2 L O2 dependent at all times although frequently nonadherent according to his . Not using oxygen during the visit. SPO2 ranging from 90 to 97% but mostly around 93%. Sees [facility]ology in [place] prior to moving here and was maintained [...] CCB for ventricular rate control. Followed with cardiology Dr. Guardado in [place]. Cardiology 1 consult placed today for continuation of care. informs that he had an echocardiogram last year but does not have that result. No records yet from Dr. Guardado in [place]. 5. PTSD - Post-traumatic stress disorder: Following with [facility]. 6. Obstructive sleep apnea 7. CKD stage 3: Unknown if stable. Getting labs today. 8. FAYE - Generalised anxiety disorder: Upcoming initial appointment with [facility] H/1. 9. Cognitive decline 10. CAD - Coronary Artery Disease ([facility] [id number]): Maintained on statin, BB, DOAC. Continued. 11. Exposure to potentially hazardous substance 12. Glaucoma: Followed by [place] optometry. 13. Insomnia 14. Bilateral hearing loss 15. GERD - Gastro-Esophageal Reflux Disease ([facility] [id number]): Asymptomatic since starting PPI. Continue omeprazole. 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 He also demonstrated weaknesses in processing speed, semantic/phonemic verbal fluency abilities, and with completing tasks of higher-level cognitive functioning (e.g., utilizing processing speed and working memory simultaneously on the [place] Making Tests). Based on the results of the current neuropsychological evaluation, the [place] met DSM-5 criteria for a major neurocognitive disorder due to multiple etiologies. DIAGNOSIS: Based on the results of the current neuropsychological evaluation, the [place] met ICD-10 criteria for: -F02.81 Dementia in other diseases classified elsewhere, unspecified severity, without behavioral disturbance RECOMMENDATIONS: 1. Given that the [place] is experiencing global cognitive deficits, current neuroimaging, [...] can be found at the following website: [email or web address] 12. Alcohol is known to have [...] prazosin. NOTED AT LAST OP VISIT: Elbert is present with his . [...] (recent 144/89). Mentally a little forgetful . A/P: Elbert is sleeping a little better since we increase dose Trazodone to 200mg QHS. However he is now c/o severe lightheadedness and dizziness. Therefore I asked him to stop trazodone and resume Seroquel as he previously found this effective w/o reported adverse effects. Also suggested he contact PCP to make sure there are no other cardiac issues going on. --------- PRESENTING SYMPTOMS AND CONDITION ON TODAY'S VISIT: Elbert is present with his . He reports its going very good. Its working better back on quetiapine. Generally I feel pretty good. , BP med changed and now no longer lightheaded. REVIEW OF SYSTEMS MENTAL HEALTH: SLEEP: improved MOOD: denies depression PTSD symptoms: I still have the dreams. Go back to 1968 ANXIETY: denies ANGER/IRRITABILITY/AGGRESSION: Denies SUBSTANCE USE: Alcohol: 1 glass wine/day (up to 2 on occasion) Illegal/non-prescribed drugs: none TOBACCO: quit SLIM/HYPOMANIA: None evident PSYCHOTIC FEATURES: None evident Suicidal Thoughts/Intent/plan: denied Social Status/ Stressors: no changes CURRENT PSYCH meds: sertraline 200mg daily, quetiapine 100mg QHS ADVERSE EFFECTS: none reported MED REC: [...] Affect: pleasant and calm without lability or agitation, full range - Thought Process: Linear, logical; no loosening [...] OVERALL PROGRESS TOWARD TREATMENT GOALS: is sleeping better since back on Seroquel, no longer lightheaded; will continue this and sertraline, no changes desired or indicated. i. Severity of Illness: ()none ( x)mild ( )moderately ill ()severely ill ()very severely ill ii. Global Improvement: ()very much (x)much ( )min ( )none ( )min worse ( )much worse ()very much worse iii. : RISK [...] scheduled for a follow-up appointment with myself in12 weeks, sooner if needed Additional Follow-Up instructions: 1. Reinforced: If urgent treatment is needed, call [phone] or go to the nearest Emergency Room 2. To schedule or change an appointment, inquire about medication refills, etc: call office number during normal office hours Diagnoses: PTSD - Post-traumatic stress disorder ([facility] [id number]) - Post-traumatic stress disorder, unspecified (ICD-10-CM F43.10) (Primary) Insomnia ([facility] [id number]) - Insomnia, unspecified (ICD-10-CM G47.00) Dementia ([facility] [id number]) - Unspecified dementia, moderate, with anxiety (ICD-10-CM F03.B4) /gurwinder/ LIU HERNANDEZ M.D. Signed: 05/26/2024 15:12 LIU HERNANDEZFIELD
== END 2024-05-27 10:44 | disposition home or self-care (01) ==
PROVIDERS: PCP Internal Medicine; Visit Provider Physician Assistant Medical
DX: I48.0 Paroxysmal atrial fibrillation (principal); J41.0 Simple chronic bronchitis; R41.89 Other symptoms and signs involving cognitive functions and awareness; F41.8 Other specified anxiety disorders; G47.33 Obstructive sleep apnea (adult) (pediatric); S22.39XA Fracture of one rib, unspecified side, initial encounter for closed fracture; R29.6 Repeated falls; I10 Essential (primary) hypertension

== ENCOUNTER → 2024-05-27 09:58 | Outpatient (BNVA) | payer MEDICARE, OTHER, SELFPAY | PROVIDERS: PCP Internal Medicine; Visit Provider Physician Assistant Medical | DX: R41.89 Other symptoms and signs involving cognitive functions and awareness (principal); F41.8 Other specified anxiety disorders; I48.0 Paroxysmal atrial fibrillation; J41.0 Simple chronic bronchitis; G47.33 Obstructive sleep apnea (adult) (pediatric); S22.39XA Fracture of one rib, unspecified side, initial encounter for closed fracture; R29.6 Repeated falls; I10 Essential (primary) hypertension; J96.10 Chronic respiratory failure, unspecified whether with hypoxia or hypercapnia; Z99.81 Dependence on supplemental oxygen | CPT/HCPCS: 99212 ==

== ENCOUNTER 2024-06-08 14:10 | Outpatient (AMB) | payer OTHER, SELFPAY ==
[2024-06-08 14:14] VITALS: BP 124/62; PULSE 68; O2SAT 98; BMI 27.0
--- NOTE | 2024-06-08 14:14 | A.OFFVIS_ITS ---
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 Accompanied by: Spouse Allergies No Known Allergies Allergy (Verified 06/08/24 14:23) Medication List - Last Reconciled 06/08/24 by Sandra Hansen LPN albuterol sulfate 90 mcg/actuation 2 puffs inhalation Q6H PRN dabigatran etexilate (Pradaxa) 150 mg PO BID diltiazem HCl ER 240 mg PO DAILY ezetimibe 10 mg PO DAILY fenofibrate nanocrystallized 48 mg PO DAILY xbmjwqvgmtj-updpufqvz-bzavotlk 200-62.5-25 mcg (Trelegy Ellipta) 1 inh inhalation DAILY furosemide 20 mg PO DAILY PRN metoprolol succinate ER 50 mg PO DAILY omeprazole 20 mg PO DAILY primidone 50 mg PO TID quetiapine 150 mg PO BEDTIME sertraline 100 mg PO DAILY HPI HPI COPD: Details: Nick is a pleasant 78 year old male, former smoker with 30 pack year history quit 30+ years ago, with underlying asthma, COPD, chronic respiratory failure on 2 L supplemental oxygen with exertion and NOC, CAD, Atrial fibrillation s/p ablation x 2 on pradaxa, AMY on CPAP and GERD. He is accompanied by his . He reports moderate control of respiratory symptoms on Trelegy 200 mcg, using albuterol MDI infrequently. He denies any respiratory symptoms today. He checks oxygen saturation frequently, never below 92%. Recent home physical therapy evaluations: oxygen saturation 97-98% on 2L supplemental oxygen. At the last visit he was supposed to schedule 6MWT however had to be rescheduled. Today he presents to review in lab PSG. Since the last visit, he noted increase in dizziness, falls, and chest pain. Initially, the patient had an episode of dizziness one evening, resulting in a fall and necessitating a visit to the hospital. He was found to have rib fractures without any other significant findings. Since then, his pain has resolved and adjustments to antihypertensive medication have been made, with significant improvements in dizziness/headaches. [facility] Medical History (Updated 05/14/24 @ 16:55 by BETINA Salvador) Hypertension Falls frequently Closed rib fracture Cognitive decline CKD stage 3a, GFR 45-59 ml/min Glaucoma GERD (gastroesophageal reflux disease) Agent orange exposure Bilateral hearing loss COPD (chronic obstructive pulmonary disease) Periodic limb movement Nocturnal hypoxemia Depression with anxiety TIA (transient ischemic attack) Neoplasm of skin Skin rash Memory loss Imbalance A-fib Hypercholesteremia Family History (Updated 11/24/23 @ 11:56 by Alannah Fernandez CMA) Mother Breast cancer Cardiovascular disease Social History Housing: House Patient Tobacco Use Status: Former Tobacco user Cigarette Packs Per Day: 1 Years Smoked: 40 service: Yes Current occupational status: retired Cognitive needs: No Hearing needs: Yes (Hearing loss) Vision needs: No Review of Systems Const Denies chills, Denies excessive sweating, Denies fever(s), Denies headache(s) and Denies night sweats Eyes Denies dry eyes, Denies irritation and Denies itchy eyes ENT Reports Normal hearing present, Denies headache(s), Denies nasal congestion, Denies nasal discharge, Denies post nasal drip and Denies sore throat Card Denies chest pain, Denies chest pain at rest, Denies chest pain with activity, Denies claudication, Denies leg edema, Denies orthopnea and Denies paroxysmal nocturnal dyspnea Resp Denies chest congestion, Denies excessive phlegm production, Denies pain on inspiration, Denies pain with cough and Denies stridor Musc Denies myalgias Neuro Reports Normal hearing present and Denies headache(s) Endo Denies excessive sweating Sedrick/Lymph Denies lymphadenopathy Aller/Immun Denies itchy eyes and Denies seasonal rhinorrhea Physical Exam Vital Signs: Last Vital Signs Pulse 68 06/08/24 14:14 BP 124/62 06/08/24 14:14 Pulse Ox 98 06/08/24 14:14 Oxygen Delivery Method Nasal Cannula 06/08/24 14:14 Oxygen Flow Rate 2 06/08/24 14:14 BMI result Body Mass Index 27.0 Const General: cooperative, healthy appearing, comfortable, no acute distress, well developed and alert Nutritional Appearance: obese Orientation/consciousness: patient oriented x3 Limitations: no limitations HEENT Head: Yes normal to inspection, Yes normocephalic and Yes atraumatic Ears: hearing grossly normal bilaterally and external ears normal Eyes General: appearance normal, both eyes and all related structures Eyelids: Yes eyelids normal Sclerae: sclerae normal EOM: EOMs intact bilaterally Neck Neck: Yes normal visual inspection and Yes no lymphadenopathy Lymphatic: no lymphadenopathy noted Chest Chest palpation & inspection: normal inspection of the chest Resp Effort & Inspection: normal respiratory effort, able to speak in complete sentences, no audible wheezes, no cough, no stridor, not tachypneic, no tripod positioning and no use of accessory muscles Auscultation: clear to auscultation bilaterally Cardio Jugular venous distension: no JVD Rate: regular rate Rhythm: regular rhythm Skin Other: warm, dry General skin exam: no rashes or lesions noted Neuro General: patient oriented x3 Cranial nerves: Yes Normal hearing present Cognition (Neuro): normal cognition Gait exam (Neuro): Normal gait present Extrem General: Yes normal to inspection, Yes capillary refill normal, Yes no clubbing, cyanosis or edema and Yes no pedal edema Psych Appearance: grossly normal and well kempt Speech and movement: Normal speech and movement present and Clear speech present Affect: normal affect Attitude: cooperative Thought process: Normal thought process present Thought content: Normal thought content present Insight: Good insight present (Psych) Judgement: Good judgement present (Psych) Office Procedures 6 Minute Walk Time:: 14:43 SPO2 % at rest: 97 Pulse at rest: 63 SPO2 % during excercise: 94 Pulse during excercise: 74 SPO2 % after excercise: 98 Pulse after excercise: 68 Distance in yards walked: 500 Gissel Score: 4 Performance Observations:: Patient walked unassisted on level ground. Patient was able to complete the 6 minute walk maintaining O2 saturation of 94-100% and pulse rate of 63-74. Denies shortness of breath and did not require the use of supplemental oxygen. [address]21 - 6 Minute Walk Assessment & Plan Assessment & Plan (1) Obstructive sleep apnea: Code(s): G47.33 - Obstructive sleep apnea (adult) (pediatric) Category: Medical (2) Nocturnal hypoxemia: Code(s): G47.34 - Idiopathic sleep related nonobstructive alveolar hypoventilation Category: Medical (3) Multiple pulmonary nodules: Code(s): R91.8 - Other nonspecific abnormal finding of lung field Category: Medical (4) Daytime somnolence: Code(s): R40.0 - Somnolence Category: Medical Plan At this time, Nick reports excellent control of respiratory symptoms on Trelegy and DuoNeb PRN, advised to continue. 6MWT performed today and patient did not desaturate below 94%. Recommended to continue to monitor oxygen saturation but at this time, does not require supplemental oxygen with ambulation. Reviewed in lab sleep study which was negative for AMY, despite prior PSG revealing moderate to severe AMY. There was note of significant PLMD and he has an upcoming appointment with sleep medicine through [facility] for further evaluation of PLMD June 22. Patient is currently using CPAP therapy with nocturnal supplemental oxygen. Will repeat overnight oximetry to ensure resolution of nocturnal hypoxemia, to be performed on room air. All questions were answered and patient is in agreement of plan. Will follow up in 3 months or sooner if needed. Orders: Orders AMB 6 minute walk Today J41.0 - Simple chronic bronchitis Overnight Pulse Oximetry Today G47.34 - Idiopathic sleep related nonobstructive alveolar hypoventilation Medications: New albuterol sulfate 90 mcg/actuation 2 puffs inhalation Q6H PRN 1 ea 0RF shortness of breath or wheezing Coding Level of Care Code Est Pt Level 4 (98793) Diagnoses Obstructive sleep apnea G47.33 Nocturnal hypoxemia G47.34 Multiple pulmonary nodules R91.8 Daytime somnolence R40.0 CPT Codes Coding ([id number])
[2024-06-08 14:54] VITALS: PULSE 63; O2SAT 97
--- OUTSIDE RECORDS SUMMARY | 2024-06-08 17:44 | XMS_ITS ---
Care Plan - [facility] Created on: June 08, 2024 Nick Oliva : 1945 Sex: Male Author Organization [facility] Address [address] [place] [address] Phone Care Team Providers Care Piecer Name Role Phone & Sports Medicine, [facility] Unavailable [phone] Kenney PARK MD, Christ Hernandez Unavailable [phone] Leti CUELLO, Maryan Rose Unavailable [phone] Junaid CUELLO, Bora Unavailable [phone] Andres CUELLO, Narendra Primary Care Provider [phone] Florecita CUELLO, Deni Unavailable [phone] Arturo TALBOT, Gloria Camargo Unavailable [phone] Edita CUELLO, Martinez Unavailable [phone] Cathy CUELLO, Sylvester Penaloza Unavailable + [phone] Smiley Calderon Unavailable [phone] Valery CUELLO, Dane Unavailable [phone] Colton Guardado MD Unavailable [phone] [place] DO Unavailable [phone] Kay CUELLO, Merle Unavailable [phone]
--- OUTSIDE RECORDS SUMMARY | 2024-06-08 17:45 | XMS_ITS | Continuity of Care Document ---
Author Name [facility] Organization [facility] Care Team Providers Care Purchasing And Fiscal Clerk Name Role Phone [facility] Unavailable Unavailable Problems Combined list of problems from Department of Defense and Veterans Affairs facilities. It does not include entries that were removed or entered in error. Problem Status Onset Date Problem Type Date of Resolution Comments Source Bilateral hearing loss Active Condition [facility] CAD - Coronary Artery Disease (SCT 08569714) Active Condition [facility] Chronic hypoxemic respiratory failure Active Condition [facility] Chronic obstructive lung disease Active [facility] CKD stage 3 Active Condition [facility] Cognitive decline Active Condition [facility] COPD - Chronic obstructive pulmonary disease Active Condition Aug 08, 2023 Entered By: TYLER ARBOLEDA A Comment: 2 L O2 dependent 04/11 [facility] Dementia Active Condition [place] Depressive disorder (SNOMED CT 14929097) Active Condition [place] [facility] Essential tremor Active Condition [facility] FAYE - Generalised anxiety disorder Active Condition [facility] GERD - Gastro-Esophageal Reflux Disease (SCT 944514442) Active Condition [facility] Glaucoma Active Condition [facility] Hearing Loss, Bilateral Active [facility] History of male erectile disorder Active Condition [place] [facility] Hyperlipidemia [facility] Hypertriglyceridaemia Active Condition [facility] Insomnia Active Condition [facility] Long-term current use of anticoagulant Active Condition [facility] Rayle's granuloma Active Condition [facility] Obstructive sleep apnea Active Condition [facility] Obstructive sleep apnea syndrome Active Condition Feb 14, 2017 Entered By: JULIANA MAST Comment: Autopap [id number] 2018 Entered By: JAVI YOUNG Comment: NASAL PILLOWS [facility] PAF - Paroxysmal atrial fibrillation Active Condition Aug 08, 2023 Entered By: TYLER ARBOLEDA Comment: s/p ablation x2 [facility] PAF - Paroxysmal atrial fibrillation [facility] Paroxysmal atrial fibrillation Active Condition Jan 25, 2016 Entered By: JEFFERSON MORROW Comment: ablation - 10/2015 [facility] Posttraumatic stress disorder, delayed onset (SNOMED CT 620876249) Active Condition [facility] PTSD - Post-traumatic stress disorder Active Condition [facility] TIA - transient ischemic attack Active [facility] Asthma, unspecified Inactive Condition 08/09/2019 [facility] Cold sore Inactive Condition 01/25/2016 [facility] Dizziness Inactive Condition 08/11/2018 [facility] Glaucoma suspect Inactive Condition 07/04/[address] [place] [address] Glaucoma, Suspect (ICD-9-CM 365.00) Inactive Condition 06/23/2015 [facility] Hyperlipidemia Inactive Condition 08/09/2019 [facility] PSEUDOEXFOLIAT GLAUCOMA Inactive Condition 06/23/2015 [facility] Diagnosis: ICD-10-CM F43.10 Post-traumatic stress disorder, unspecified Active Diagnosis [place] Diagnosis: ICD-10-CM Z46.1 Encounter for fitting and adjustment of hearing aid Active [facility] Diagnosis: ICD-10-CM Z79.01 [facility] (current) use of anticoagulants Active Diagnosis [facility] Diagnosis: ICD-10-CM F03.B4 Unspecified dementia, moderate, with anxiety Active Diagnosis [place] Diagnosis: ICD-10-CM 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, right eye, mild stage Active Diagnosis [facility] Diagnosis: ICD-10-CM H40.1421 Capslr glaucoma w/pseudxf lens, left eye, mild stage Active Diagnosis [facility] [place] [facility] Diagnosis: ICD-10-CM R41.3 Other amnesia Active Diagnosis [place] [facility] [place] [facility] Diagnosis: ICD-10-CM H40.1412 Capslr glaucoma w/pseudxf lens, right eye, moderate stage Active Diagnosis [place] [facility] [place] [facility] Diagnosis: ICD-10-CM J96.11 Chronic respiratory failure with hypoxia Active Diagnosis [place] Diagnosis: ICD-10-CM K03.6 Deposits [accretions] on teeth Active Diagnosis [facility] [place] [place] [facility] Diagnosis: ICD-10-CM I48.20 Chronic atrial fibrillation, unspecified Active Diagnosis [facility] Diagnosis: ICD-10-CM F43.12 Post-traumatic stress disorder, chronic Active Diagnosis [place] Diagnosis: ICD-10-CM K08.531 Fractured dental restorative material with loss of material Active Diagnosis [facility] [place] [place] [facility] Diagnosis: ICD-10-CM L92.0 Granuloma annulare Active Diagnosis [facility] Diagnosis: ICD-10-CM Z13.89 Encounter for screening for other disorder Active Diagnosis [place] Diagnosis: ICD-10-CM I48.0 Paroxysmal atrial fibrillation Active Diagnosis [facility] Diagnosis: ICD-10-CM Z71.89 Other specified counseling Active Diagnosis [place] Diagnosis: ICD-10-CM Z13.6 Encounter for screening for cardiovascular disorders Active Diagnosis [facility] Diagnosis: ICD-10-CM J44.9 Chronic obstructive pulmonary disease, unspecified Active Diagnosis [facility] Diagnosis: ICD-10-CM R68.89 Other general symptoms and signs Active Diagnosis [facility] Diagnosis: ICD-10-CM L30.8 Other specified dermatitis Active Diagnosis [facility]RICK ZULU[facility] Diagnosis: ICD-10-CM Z23 Encounter for immunization Active Diagnosis [facility] Diagnosis: ICD-10-CM H40.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, high risk, bilateral Active Diagnosis [address] [place] [address] Medications Combined list of outpatient medications from [...] [facility] RESPIR ATORY (INHAL ATION) ACTIVE 08/07/2024 [id number] Connor ARBOLEDA AVID A 2023 2 [place] ATORVASTATI N CA 80MG TAB TAKE ONE-HALF TABLET BY MOUTH EVERY DAY FOR CHOLESTE ROL ORAL ACTIVE 06/30/2024 [id number] 4 Narendra MORROW ISHORE [address] [facility] ATORVASTATI N CA 80MG TAB TAKE ONE TABLET BY MOUTH ONCE DAILY FOR HIGH CHOLESTE ROL ORAL DISCONT INUED BY PROVIDE R 08/08/2024 [id number] 4 Connor ARBOLEDA AVID A 2023 90 [place] ATORVASTATI N CA 80MG TAB TAKE ONE-HALF TABLET BY MOUTH EVERY DAY FOR CHOLESTE ROL ORAL DISCONT INUED 07/05/2023 [id number] 4 Narendra MORROW ISHORE 2022 45 [facility] BRIMONIDINE TARTRATE 0.2% SOLN,OPH INSTILL 1 DROP INTO THE RIGHT EYE TWICE DAILY FOR GLAUCOMA OPHTHA LMIC ACTIVE 01/01/2025 [id number] 4 JOSE GREENE 2023 10 [facility] BRIMONIDINE TARTRATE 0.2% SOLN,OPH INSTILL 1 DROP INTO THE RIGHT EYE EVERY MORNING FOR INCREASE D PRESSURE IN THE EYE FOR GLAUCOMA OPHTHA LMIC DISCONT INUED (EDIT) 11/14/2024 [id number] 4 JOSE GREENE 2023 10 [facility] BRIMONIDINE TARTRATE 0.2% SOLN,OPH INSTILL 1 DROP INTO RIGHT EYE EVERY MORNING FOR GLAUCOMA OPHTHA LMIC 03/28/2024 [id number] 4 PEGGY ANDERSON SA [address] [place] [address] CARBOXYMETH YLCELLULOSE NA 0.5% SOLN,OPH INSTILL 1 DROP INTO EACH EYE FOUR TIMES A DAY FOR DRY EYE OPHTHA LMIC ACTIVE 11/14/2024 [id number] 4 JOSE GREENE 2023 15 [facility] DABIGATRAN ETEXILATE 150MG CAP,ORAL TAKE ONE CAPSULE BY MOUTH TWICE DAILY TO PREVENT BLOOD CLOTS (ONCE OPENED, THE MEDICATI ON MUST BE USED WITHIN 4 MONTHS) ORAL ACTIVE 08/13/2024 [id number] 4 Connor ARBOLEDAD A 2023 180 [place] DABIGATRAN ETEXILATE 150MG CAP,ORAL TAKE ONE CAPSULE BY MOUTH TWICE A DAY TAKE WITH A FULL GLASS OF WATER,TO PREVENT BLOOD CLOTS ORAL DISCONT INUED BY PROVIDE R 08/20/2023 [id number] 4 IAN AYALA 2022 180 PATRICK Iyer [facility] DILTIAZEM (EQV-CARDIZ EM AB3) 240MG 24HR CAP TAKE ONE CAPSULE BY MOUTH ONCE DAILY FOR ATRIAL FIBRILLA TION ORAL ACTIVE 08/07/2024 [id number] Connor ARBOLEDAD A 2023 90 [place] DOXYCYCLINE HYCLATE 100MG TAB TAKE ONE TABLET BY MOUTH TWICE DAILY UPPER RESPIRAT ORY INFECTIO N ORAL 11/29/2023 [id number] 4 Connor ARBOLEDAD A 2023 14 [place] EZETIMIBE 10MG TAB TAKE ONE TABLET BY MOUTH ONCE DAILY TO LOWER CHOLESTE ROL ORAL ACTIVE 08/07/2024 [id number] 4 Connor ARBOLEDAD A 2023 90 [place] FENOFIBRATE 48MG TAB TAKE ONE TABLET BY MOUTH ONCE DAILY FOR HIGH CHOLESTE ROL ORAL ACTIVE 02/26/2025 [id number] 4 Connor ARBOLEDA AVID A 2023 90 [place] FUROSEMIDE 20MG TAB TAKE ONE TABLET BY MOUTH ONCE DAILY NEEDED FOR VISIBLE WATER RETENTIO N TO REMOVE FLUID/CO NTROL BLOOD PRESSURE ORAL ACTIVE 08/08/2024 [id number] 4 Connor ARBOLEDA AVID A 2023 90 [place] FUROSEMIDE 20MG TAB TAKE ONE TABLET BY MOUTH EVERY MORNING ORAL ACTIVE Narendra MORROWORE 2019 [facility] KETOCONAZOL E 2% SHAMPOO USE SMALL AMOUNT ON SCALP FRI,FRI AND FRIDAY SEBORRHE IC DERMATIT IS LATHER, APPLY TO SCALP, LEAVE ON FOR 5 MINUTES, THEN WASH OFF. DO THIS THREE TIMES PER WEEK. LATHER, APPLY TO SCALP, LEAVE ON FOR 5 MINUTES, THEN WASH OFF. DO THIS THREE TIMES PER WEEK. TOPICA L 03/31/2024 [id number] 4 Javad MERRITT [place] 2022 120 [place] [facility] [facility] LATANOPROST 0.005% SOLN,OPH INSTILL 1 DROP INTO EACH EYE AT BEDTIME FOR INCREASE D PRESSURE IN THE EYE OPHTHA LMIC ACTIVE 11/14/2024 [id number] 4 JOSE GREENE 2023 7.5 [facility] LATANOPROST 0.005% SOLN,OPH INSTILL 1 DROP INTO BOTH EYES AT BEDTIME FOR GLAUCOMA OPHTHA LMIC 09/27/2023 [id number] 4 PEGGY ANDERSON SA S [address] [place] [address] METOPROLOL SUCCINATE 50MG TAB,SA TAKE ONE TABLET BY MOUTH ONCE DAILY FOR BLOOD PRESSURE /HEART ORAL ACTIVE 08/08/2024 [id number] 4 Connor ARBOLEDA A 2023 90 [place] METOPROLOL TARTRATE 50MG TAB TAKE ONE-HALF TABLET BY MOUTH TWICE A DAY FOR HEART AND BLOOD PRESSURE ORAL ACTIVE 06/30/2024 [id number] 4 Narendra [facility]ROWORE 2023 [facility] METOPR[facility] TAR[facility]ATE 50MG TAB TAKE ONE-HALF TABLET BY MOUTH TWICE A DAY FOR HEART AND BLOOD PRESSURE ORAL DISCONT INUED 07/05/2023 [id number] 4 Narendra MORROWORE 2022 90 [facility] OMEPRAZOLE 20MG CAP,EC TAKE ONE CAPSULE BY MOUTH EVERY MORNING 30 MINUTES BEFORE BREAKFAS T FOR GASTROES OPHAGEAL REFLUX DISEASE ORAL ACTIVE 08/08/2024 [id number] 4 Connor ARBOLEDA AVID A 2023 90 [place] OMEPRAZOLE 20MG CAP,EC TAKE ONE CAPSULE BY MOUTH EVERY DAY FOR STOMACH ORAL ACTIVE 06/30/2024 [id number] 4 Narendra MORROW ISHORE 2023 90 [facility] OMEPRAZOLE 20MG CAP,EC TAKE ONE CAPSULE BY MOUTH EVERY DAY FOR STOMACH ORAL DISCONT INUED 07/05/2023 [id number] 4 Narendra MORROW ISHORE 2022 90 [facility] PRAZOSIN HCL 2MG CAP TAKE TWO CAPSULES BY MOUTH AT BEDTIME FOR NIGHTMAR ES ORAL 03/29/2023 [id number] 3 Shaila EDWARD 2022 180 [facility] PRIMIDONE 50MG TAB TAKE ONE TABLET BY MOUTH ONCE DAILY FOR SIMPLE SEIZURE ORAL ACTIVE 08/08/2024 [id number] 4 Connor ARBOLEDAD A 2023 [place] PRIMIDONE 50MG TAB TAKE ONE TABLET BY MOUTH THREE TIMES A DAY FOR TREMORS ORAL ACTIVE 06/30/2024 [id number] 4 Narendra MORROWORE 2023 270 [facility] [facility] PRIMIDONE 50MG TAB TAKE ONE TABLET BY MOUTH THREE TIMES A DAY FOR TREMORS ORAL DISCONT INUED 07/05/2023 [id number] 4 Narendra MORROWORE 2022 270 [facility] [facility] QUETIAPINE FUMARATE 100MG TAB TAKE ONE TABLET BY MOUTH AT BEDTIME FOR MOOD AND PTSD ORAL ACTIVE 05/27/2025 [id number] 5 Edwin HERNANDEZ 2024 90 [place] QUETIAPINE FUMARATE 100MG TAB TAKE ONE TABLET BY MOUTH AT BEDTIME FOR MOOD AND PTSD ORAL DISCONT INUED (EDIT) 04/29/2025 [id number] 5 Edwin HERNANDEZ G 2024 30 [place] QUETIAPINE FUMARATE 100MG TAB TAKE ONE TABLET BY MOUTH AT BEDTIME FOR ANXIETY ORAL 11/29/2023 [id number] Connor ARBOLEDA AVID A 2023 30 [place] QUETIAPINE FUMARATE 200MG TAB TAKE ONE-HALF TABLET BY MOUTH AT BEDTIME FOR ANXIETY ORAL 04/23/2024 [id number] 4 Shaila EDWARD N 2023 15 [facility] QUETIAPINE FUMARATE 50MG TAB TAKE ONE-HALF TABLET BY MOUTH AT BEDTIME FOR ANXIETY ORAL DISCONT INUED (EDIT) 03/25/2024 [id number] 4 Shaila EDWARD N 2022 15 [facility] SERTRALINE HCL 100MG TAB TAKE ONE TABLET BY MOUTH ONCE DAILY FOR POSTTRAU MATIC STRESS SYNDROME ORAL ACTIVE 08/08/2024 [id number] Connor ARBOLEDA A 2023 90 [place] SERTRALINE HCL 100MG TAB TAKE TWO TABLETS BY MOUTH EVERY DAY FOR DEPRESSI ON ORAL 03/29/2023 [id number] 3 Shaila EDWARD N 2022 180 [facility] TRAZODONE HCL 100MG TAB TAKE TWO TABLETS BY MOUTH AT BEDTIME FOR INSOMNIA ASSOCIAT ED WITH DEPRESSI ON ORAL DISCONT INUED BY PROVIDE R 01/21/2025 [id number] 4 Edwin HERNANDEZ G 2023 180 [place] TRAZODONE HCL 100MG TAB TAKE 1/2 - 1 TABLET BY MOUTH AT BEDTIME NEEDED FOR INSOMNIA ASSOCIAT ED WITH DEPRESSI ON ORAL DISCONT INUED (EDIT) 11/13/2024 [id number] 4 Edwin HERNANDEZ G 2023 30 [place] UMECLIDINIU M/VILANTERO L INHALER INHL,ORAL USE BY INHALATI ON EVERY DAY RESPIR ATORY (INHAL ATION) ACTIVE Narendra MORROW 2019 [facility] Allergies, Adverse Reactions, Alerts Combined list of allergies from Department of Defense and Veterans Affairs facilities. It does not include entries that were removed or entered in error. Substance Category Reaction Severity Reaction type Status Date Reported Comments Source ATORVASTATIN Propensity to adverse reactions to drug (finding) Muscle pain MODERATE active 4 [facility] LISINOPRIL Propensity to adverse reactions to drug (finding) Angioedema active 0 [facility] LISINOPRIL Propensity to adverse reactions to drug (finding) Swelling active 4 [facility] Immunizations Combined list of available immunizations from the Department of Defense and Veterans Affairs facilities. Immunization Series Date Given Administered By Site Reaction Lot Number CVX Code Drug Store Administrative Assistant Status Comments Source COVID-19 (MODERNA), MRNA, LNP-S, PF, 50 MCG/0.5 ML (AGES 12+ YEARS) 2023 EMELY BRUNO RIGHT DELTO ID [id number] 312 complet ed [facility] INFLUENZA, HIGH-DOSE, TRIVALENT, PF 2023 EMELY BRUNO R LEFT DELTO ID [id number] 135 complet ed [facility] INFLUENZA, INJECTABLE, QUADRIVALENT, PRESERVATIVE FREE 2022 JIMMY FOOTE RIGHT DELTO ID [id number] 150 complet ed [facility] RSV, BIVALENT, PROTEIN SUBUNIT RSVPREF, DILUENT RECONSTITUTED , 0.5 ML, PF 2022 JIMMY FOOTE LEFT DELTO ID [id number] 305 complet ed diluent lot#[id number] exp: 06/08 [facility] INFLUENZA, UNSPECIFIED FORMULATION 2022 88 complet ed [facility] INFLUENZA, SEASONAL, INJECTABLE 2021 141 complet ed [facility] INFLUENZA VACCINE, QUADRIVALENT, ADJUVANTED 1 2021 205 complet ed [facility] COVID-19 (MODERNA), MRNA, LNP-S, PF, 100 MCG OR 50 MCG DOSE 3 2020 207 complet ed MOD; [id number]; 2 [facility] COVID-19 (MODERNA), MRNA, LNP-S, PF, 100 MCG/0.5ML DOSE OR 50 MCG/0.25ML DOSE 3 2020 207 complet ed [facility] INFLUENZA, RECOMBINANT, QUADRIVALENT, INJECTABLE, PRESERVATIVE FREE 1 2020 185 complet ed [facility] ZOSTER RECOMBINANT 2 2020 187 complet ed [facility] ZOSTER RECOMBINANT 1 2020 187 complet ed [facility] COVID-19 (MODERNA), MRNA, LNP-S, PF, 100 MCG/0.5 ML DOSE 2 2020 207 complet ed [facility] COVID-19 (MODERNA), MRNA, LNP-S, PF, 100 MCG/0.5 ML DOSE 1 2020 207 complet ed [facility] COVID-19 (MODERNA), MRNA, LNP-S, PF, 100 MCG/0.5ML DOSE OR 50 MCG/0.25ML DOSE 1 2020 207 complet ed [facility] INFLUENZA, UNSPECIFIED FORMULATION 2019 88 complet ed [facility] INFLUENZA, SEASONAL, INJECTABLE 2019 141 complet ed [facility] INFLUENZA, INJECTABLE, QUADRIVALENT, PRESERVATIVE FREE 1 2019 150 complet ed [facility] INFLUENZA, UNSPECIFIED FORMULATION 2018 88 complet ed [facility] INFLUENZA, UNSPECIFIED FORMULATION 2017 88 complet ed [facility] INFLUENZA, SEASONAL, INJECTABLE 2016 141 complet ed [employer] [facility] TDAP 1 2016 115 complet ed [facility] INFLUENZA, UNSPECIFIED FORMULATION 2015 88 complet ed [employer] [facility] INFLUENZA, HIGH DOSE SEASONAL 1 2015 135 complet ed [facility] INFLUENZA, UNSPECIFIED FORMULATION 2014 88 complet ed [employer] [facility] ZOSTER LIVE 2014 121 complet ed [facility] TDAP 2014 115 complet ed [facility] INFLUENZA, UNSPECIFIED FORMULATION 2014 88 complet ed [facility] PNEUMOCOCCAL CONJUGATE PCV 13 1 2014 133 complet ed [facility] INFLUENZA, UNSPECIFIED FORMULATION 2012 88 complet ed [employer] [facility] INFLUENZA, UNSPECIFIED FORMULATION 2011 88 complet ed [facility] INFLUENZA, UNSPECIFIED FORMULATION 2009 88 complet ed [facility] INFLUENZA, UNSPECIFIED FORMULATION 2008 88 complet ed [facility] PNEUMOCOCCAL, UNSPECIFIED FORMULATION 2008 109 complet ed [facility] PNEUMOCOCCAL POLYSACCHARID E PPV23 2008 33 complet ed [facility] TD(ADULT) UNSPECIFIED FORMULATION 2008 139 complet ed per patient [facility] INFLUENZA, UNSPECIFIED FORMULATION 2007 88 complet ed [facility] Results Combined list of recent chemistry, hematology [...] August 17, 2023 01:25 PM Reporting Lab: [facility] [place] [facility] [address] [facility] [address] Performing Lab: [facility] [address] [facility] [address] [place] MICROALB UMIN CREATINI NE RATIO PANEL MICROALBUM IN [MASS/VOLU ME] IN URINE < 0.5mg/dL 11/06 Specimen Type: URINE No comment entered. Ordering Provider: TYLER ARBOLEDA A Report Released Date/Time: August 17, 2023 01:25 PM Reporting Lab: [facility] [place] [address] Performing Lab: [address] [address] [place] MICROALB UMIN CREATINI NE RATIO PANEL CREATININE [MASS/VOLU ME] IN URINE 128.85 mg/dL 11/06 Specimen Type: URINE No comment entered. Ordering Provider: TYLER ARBOLEDA A Report Released Date/Time: August 17, 2023 01:25 PM Reporting Lab: [address] [address] Performing Lab: [address] [address] [place] URINALYS IS COLOR OF URINE Yellow 11/06 Specimen Type: URINE Comment: If Glucose = >500 and Ketones are positive, please alert the Physician. Ordering Provider: TYLER ARBOLEDA A Report Released Date/Time: August 17, 2023 01:25 PM Reporting Lab: [address] [address] Performing Lab: [address] [address] [place] URINALYS IS APPEARANCE OF URINE Turbid 11/06 Specimen Type: URINE Comment: If Glucose = >500 and Ketones are positive, please alert the Physician. Ordering Provider: TYLER ARBOLEDA A Report Released Date/Time: August 17, 2023 01:25 PM Reporting Lab: [address] [address] Performing Lab: [address] [address] [place] URINALYS IS GLUCOSE [MASS/VOLU ME] IN URINE NEGATIVE mg/dL 11/06 Specimen Type: URINE Comment: If Glucose = >500 and Ketones are positive, please alert the Physician. Ordering Provider: TYLER ARBOLEDA A Report Released Date/Time: August 17, 2023 01:25 PM Reporting Lab: [address] [address] Performing Lab: [facility] [address] [address] [place] URINALYS IS KETONES [MASS/VOLU ME] IN URINE BY TEST STRIP NEGATIVE mg/dL 11/06 Specimen Type: URINE Comment: If Glucose = >500 and Ketones are positive, please alert the Physician. Ordering Provider: TYLER ARBOLEDA A Report Released Date/Time: August 17, 2023 01:25 PM Reporting Lab: [facility] [address] [address] Performing Lab: [address] [address] [place] URINALYS IS ERYTHROCYT ES [PRESENCE] IN URINE SEDIMENT BY LIGHT MICROSCOPY NEGATIVE mg/dL 11/06 Specimen Type: URINE Comment: If Glucose = >500 and Ketones are positive, please alert the Physician. Ordering Provider: TYLER ARBOLEDA A Report Released Date/Time: August 17, 2023 01:25 PM Reporting Lab: [facility] [address] [address] Performing Lab: [facility] [address] [address] [place] URINALYS IS PROTEIN [MASS/VOLU ME] IN URINE BY TEST STRIP NEGATIVE mg/dL 11/06 Specimen Type: URINE Comment: If Glucose = >500 and Ketones are positive, please alert the Physician. Ordering Provider: TYLER ARBOLEDA A Report Released Date/Time: August 17, 2023 01:25 PM Reporting Lab: [facility] [address] [address] Performing Lab: [address] [address] [place] URINALYS IS NITRITE [PRESENCE] IN URINE NEGATIVE mg/dL 11/06 Specimen Type: URINE Comment: If Glucose = >500 and Ketones are positive, please alert the Physician. Ordering Provider: TYLER ARBOLEDA A Report Released Date/Time: August 17, 2023 01:25 PM Reporting Lab: [address] [address] Performing Lab: [address] [address] [place] URINALYS IS BILIRUBIN. TOTAL [PRESENCE] IN URINE NEGATIVE mg/dL 11/06 Specimen Type: URINE Comment: If Glucose = >500 and Ketones are positive, please alert the Physician. Ordering Provider: TYLER ARBOLEDA A Report Released Date/Time: August 17, 2023 01:25 PM Reporting Lab: [address] [address] Performing Lab: [address] [address] [place] URINALYS IS SPECIFIC GRAVITY OF URINE BY REFRACTOME TRY 1.024 1.016 - 1.022 11/06 H Specimen Type: URINE Comment: If Glucose = >500 and Ketones are positive, please alert the Physician. Ordering Provider: TYLER ARBOLEDA A Report Released Date/Time: August 17, 2023 01:25 PM Reporting Lab: [address] [address] Performing Lab: [address] [address] [place] URINALYS IS PH OF URINE BY TEST STRIP 6.0 5.0 - 9.0 11/06 Specimen Type: URINE Comment: If Glucose = >500 and Ketones are positive, please alert the Physician. Ordering Provider: TYLER ARBOLEDA A Report Released Date/Time: August 17, 2023 01:25 PM Reporting Lab: [address] [address] Performing Lab: [address] [address] [place] URINALYS IS UROBILINOG EN [MASS/VOLU ME] IN URINE BY TEST STRIP <2.0mg/d L <2.0 - 2.0 11/06 Specimen Type: URINE Comment: If Glucose = >500 and Ketones are positive, please alert the Physician. Ordering Provider: TYLER ARBOLEDA A Report Released Date/Time: August 17, 2023 01:25 PM Reporting Lab: [address] [address] Performing Lab: [address] [address] [place] URINALYS IS LEUKOCYTE ESTERASE [PRESENCE] IN URINE BY TEST STRIP NEGATIVE 11/06 Specimen Type: URINE Comment: If Glucose = >500 and Ketones are positive, please alert the Physician. Ordering Provider: TYLER ARBOLEDA A Report Released Date/Time: August 17, 2023 01:25 PM Reporting Lab: [address] [address] Performing Lab: [address] [address] [place] LIVER FUNCTION PROTEIN [MASS/VOLU ME] IN SERUM OR PLASMA 6.4 g/dL 6.0 - 8.3 11/06 Specimen Type: SERUM No comment entered. Ordering Provider: TYLER ARBOLEDA A Report Released Date/Time: August 17, 2023 01:25 PM Reporting Lab: [address] [id number] Performing Lab: [address] [address] [place] LIVER FUNCTION ALBUMIN [MASS/VOLU ME] IN SERUM OR PLASMA 3.3 g/dL 3.5 - 5.0 11/06 L Specimen Type: SERUM No comment entered. Ordering Provider: TYLER ARBOLEDA A Report Released Date/Time: August 17, 2023 01:25 PM Reporting Lab: [address] [address] Performing Lab: [address] [address] [place] LIVER FUNCTION ALKALINE PHOSPHATAS E [ENZYMATIC ACTIVITY/V OLUME] IN SERUM OR PLASMA 88 U/L 40 - 150 11/06 Specimen Type: SERUM No comment entered. Ordering Provider: TYLER ARBOLEDA A Report Released Date/Time: August 17, 2023 01:25 PM Reporting Lab: [facility] [address] [address] Performing Lab: [facility] [address] [address] [place] L[place] FUNCTION ASPARTATE AMINOTRANS FERASE [ENZYMATIC ACTIVITY/V OLUME] IN SERUM OR PLASMA 16 U/L 5 - 34 11/06 Specimen Type: SERUM No comment entered. Ordering Provider: TYLER ARBOLEDA A Report Released Date/Time: August 17, 2023 01:25 PM Reporting Lab: [facility] [address] [address] Performing Lab: [facility] [address] [address] [place] LIVER FUNCTION ALANINE AMINOTRANS FERASE [ENZYMATIC ACTIVITY/V OLUME] IN SERUM OR PLASMA 24 U/L 11/06 Specimen Type: SERUM No comment entered. Ordering Provider: TYLER ARBOLEDA A Report Released Date/Time: August 17, 2023 01:25 PM Reporting Lab: [facility] [address] [address] Performing Lab: [facility] [address] [address] [place] BILIRUBIN. TOTAL [MASS/VOLU ME] IN SERUM OR PLASMA 0.4 mg/dL 0.2 - 1.2 11/06 Specimen Type: SERUM No comment entered. Ordering Provider: TYLER ARBOLEDA A Report Released Date/Time: August 17, 2023 01:25 PM Reporting Lab: [address] [address] Performing Lab: [facility] [address] [address] [place] LIPID PANEL, NON FASTING CHOLESTERO L [MASS/VOLU ME] IN SERUM OR PLASMA 134 mg/dL 11/06 Specimen Type: SERUM No comment entered. Ordering Provider: TYLER ARBOLEDA A Report Released Date/Time: August 17, 2023 01:25 PM Reporting Lab: [facility]ITALRL TRN [facility]USETS [address] [address] Performing Lab: [facility] [address] [address] [place] LIPID PANEL, NON FASTING TRIGLYCERI DE [MASS/VOLU ME] IN SERUM OR PLASMA 235 mg/dL 0 - 150 11/06 H Specimen Type: SERUM No comment entered. Ordering Provider: TYLER ARBOLEDA A Report Released Date/Time: August 17, 2023 01:25 PM Reporting Lab: [facility]TRN [address] [address] Performing Lab: [facility] TRN [address] [address] [place] LIPID PANEL, NON FASTING CHOLESTERO L IN LDL [MASS/VOLU ME] IN SERUM OR PLASMA BY SUMMER N 41 mg/dL 0 - 129 11/06 Specimen Type: SERUM No comment entered. Ordering Provider: TYLER ARBOLEDA A Report Released Date/Time: August 17, 2023 01:25 PM Reporting Lab: [facility]USE[address] [address] Performing Lab: [facility] [address] [address] [place] LIPID PANEL, NON FASTING CHOLESTERO L.TOTAL/CH OLESTEROL IN HDL [MASS RATIO] IN SERUM OR PLASMA 2.9 11/06 Specimen Type: SERUM No comment entered. Ordering Provider: TYLER ARBOLEDA A Report Released Date/Time: August 17, 2023 01:25 PM Reporting Lab: [facility] [address] [address] Performing Lab: [facility] [address] [address] [place] LIPID PANEL, NON FASTING CHOLESTERO L IN HDL [MASS/VOLU ME] IN SERUM OR PLASMA 46 mg/dL 40 - 60 11/06 Specimen Type: SERUM No comment entered. Ordering Provider: TYLER ARBOLEDA A Report Released Date/Time: August 17, 2023 01:25 PM Reporting Lab: [address] [address] Performing Lab: [address] [address] [place] CALCIUM CALCIUM [MASS/VOLU ME] IN SERUM OR PLASMA 8.8 mg/dL 8.5 - 10.2 11/06 Specimen Type: SERUM No comment entered. Ordering Provider: TYLER ARBOLEDA A Report Released Date/Time: August 17, 2023 01:25 PM Reporting Lab: [address] [address] Performing Lab: [address] [address] [place] TSH THYROTROPI N [UNITS/VOL UME] IN SERUM OR PLASMA 1.16 u[IU]/mL 0.35 - 5.00 11/06 Specimen Type: SERUM No comment entered. Ordering Provider: TYLER ARBOLEDA A Report Released Date/Time: August 17, 2023 01:25 PM Reporting Lab: [address] [address] Performing Lab: [address] [address] [place] MAGNESIU M MAGNESIUM [MASS/VOLU ME] IN SERUM OR PLASMA 1.9 mg/dL 1.6 - 2.6 11/06 Specimen Type: SERUM No comment entered. Ordering Provider: TYLER ARBOLEDA A Report Released Date/Time: August 17, 2023 01:25 PM Reporting Lab: [address] [address] Performing Lab: [address] [address] [place] HEMOGLOB IN A1C PANEL HEMOGLOBIN [...] August 17, 2023 01:25 PM Reporting Lab: [facility] [employer] [address] Performing Lab: [address] [address] [employer] VITAMIN D (25-OH) 25-HYDROXY VITAMIN D3 [MASS/VOLU ME] IN SERUM OR PLASMA 28 ng/mL 20 - 50 11/06 Specimen Type: SERUM No comment entered. Ordering Provider: TYLER ARBOLEDA A Report Released Date/Time: August 17, 2023 01:25 PM Reporting Lab: [facility] [employer] [address] Performing Lab: [facility] [employer] [address] [employer] VITAMIN B12 COBALAMIN (VITAMIN B12) [MASS/VOLU ME] IN SERUM OR PLASMA 424 pg/mL 200 - 900 11/06 Specimen Type: SERUM No comment entered. Ordering Provider: TYLER ARBOLEDA A Report Released Date/Time: August 17, 2023 01:25 PM Reporting Lab: [facility] [employer] [address] Performing Lab: [facility] [employer] [address] [employer] Vital Signs Combined list of inpatient and outpatient Vital Signs from Department of Defense and Veterans Affairs, ranging from 12 months to all on record, depending upon the facility. Vital Sign Value Date Comments Source SYSTOLIC BLOOD PRESSURE 109 02/26/20 24 13:11:41 [facility] DIASTOLIC BLOOD PRESSURE 58 02/25/ 024 13:11:41 [facility] PULSE OXIMETRY 94 02/26/2024 13:11:41 [facility] WEIGHT 183.2 02/26/2024 13:11:41 [facility] BMI 26 kg/m2 02/26/2024 13:11:41 [facility] TEMPERATURE 97.2 02/26/2024 13:11:41 [facility] PULSE 56 02/26/2024 13:11:41 [facility] SYSTOLIC BLOOD PRESSURE 159 09/10/19 11:32:13 [facility] DIASTOLIC BLOOD PRESSURE 63 024 11:32:13 [facility] PULSE OXIMETRY 97 09/10/2023 11:32:13 [facility] PAIN 0 09/10/2023 11:32:13 [facility] PULSE 54 09/10/2023 11:32:13 [facility] SYSTOLIC BLOOD PRESSURE 134 08/07/19 15:14:54 [facility] DIASTOLIC BLOOD PRESSURE 69 024 15:14:54 [facility] PULSE OXIMETRY 97 08/07/2023 15:14:54 [facility] WEIGHT 193 08/07/2023 15:14:54 [facility] BMI 28 kg/m2 08/07/2023 15:14:54 [facility] HEIGHT 70 08/07/2023 15:14:54 [facility] TEMPERATURE 98.3 08/07/2023 15:14:54 [facility] PULSE 54 08/07/2023 15:14:54 [facility] RESPIRATION 18 08/07/2023 15:14:54 [facility] SYSTOLIC BLOOD PRESSURE 152 06/30/19 10:28:55 [facility] DIASTOLIC BLOOD PRESSURE 78 024 10:28:55 [facility] PULSE OXIMETRY 98 06/30/2023 10:28:55 [facility] WEIGHT 203 06/30/2023 10:28:[address] [facility] BMI 29 kg/m2 06/30/2023 10:28:55 [facility] PAIN 0 06/30/2023 10:28:55 [facility] TEMPERATURE 97.3 06/30/2023 10:28:55 [facility] PULSE 98 06/30/2023 10[facility]28:[facility] 18 06/30/2023 10:28:55 [facility] HEIGHT 70 06/23/2023 12:48:00 [facility] Encounters Combined list of: 1) Encounters from Department of Veterans Affairs facilities going backup to the last 18 months, not all VA inpatient encounters are included; 2) Encounters from the Department of [facility] facilities going backup to 280 months. Location Location Details Encounter Type Encounter Number Reason For Visit Attending Provider ADM Date DC Date Status Disposition Source [facility] Outpatient Encounter [id number] 01/21 [facility] Outpatient Encounter 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, high risk, bilater al MONICA,LIS A S 02/[address] [place] [address] [facility] Outpatient Encounter [id number] 03/25 [place] [facility] [place] [facility] OFF/OP EST AUGUST X REQ PHY/QHP [id number] Diagnos is: ICD-10- CM Z23 Encount er for immuniz JIMMY Gama 03/25 [facility] OFF[facility] O/P EST MOD 30-39 MIN [id number] Diagnos is: ICD-10- CM F43.10 Post-tr aumatic stress disorde r, unspeci GAGANDEEP Dominguez N 03/25 [facility] Outpatient Encounter [id number] 03/25 [facility] Outpatient Encounter [id number] 03/31 [facility] Outpatient Encounter [id number] 04/16 [facility] Outpatient Encounter [id number] 04/[address] HEARING AID REPAIR/MOD IFYING [id number] Diagnos is: ICD-10- CM Z46.1 Encount er for fitting and adjustm ent of hearing aid TYRA-MICHELLE CA BELL A 05/[address] [place] [address] HEARING AID FITTING/CH ECKING [id number] Diagnos is: ICD-10- CM Z46.1 Encount er for fitting and adjustm ent of hearing aid TYRA-CA BROWN 05/[address] [place] [address] OFFICE O/P EST MOD 30 MIN [id number] Diagnos is: ICD-10- CM L30.8 Other specifi ed dermati tis JANESSA MERRITT A 05/[address] HEARING AID REPAIR/MOD IFYING [id number] Diagnos is: ICD-10- CM Z46.1 Encount er for fitting and adjustm ent of hearing aid MAGANJUN Y 05/[address] [place] [address] HEARING AID FITTING/CH ECKING [id number] Diagnos is: ICD-10- CM Z46.1 Encount er for fitting and adjustm ent of hearing aid MAGANJUN Y 06/[address] [place] [address] HC PRO PHONE CALL 11-20 MIN [id number] Diagnos is: ICD-10- CM R68.89 Other general symptom s and signs MARILEE ARIAS 06/22 [facility] Outpatient Encounter [id number] 06/25 [facility] OFFICE O/P EST LOW 20 MIN [id number] Diagnos is: ICD-10- CM J44.9 Chronic obstruc tive pulmona ry disease , unspeci fied [facility]29 [facility] Encounter [id number] 06/[address] Outpatient Encounter [id number] 07/[address] [place] [address] [facility] [place] [facility] Outpatient Encounter [id number] 07/17 [place] [facility] [place] [facility] [place] Outpatient Encounter [id number] 08/05 [place] [facility] [place] [facility] [place] [facility] Outpatient Encounter [id number] 08/06 [place] [facility] [place] [place] [facility] OFFICE O/P EST HI 40 MIN [id number] Diagnos is: ICD-10- CM J96.11 Chronic respira tory failure with hypoxia ERLINDA ARBOLEDA 08/06 [place] [facility] [place] [facility] Outpatient Encounter [id number] 08/06 [place] [facility] [place] [facility] ELECTROCAR DIOGRAM REPORT [id number] Diagnos is: ICD-10- CM Z13.6 Encount er for screeni ng for cardiov ascular disorde TINO Sánchez 08/06 [place] [facility] [place] [facility] ELECTROCAR DIOGRAM TRACING [id number] SHI GUERRERO 08/06 [facility] [place] [facility] [place] Outpatient Encounter [id number] Diagnos is: ICD-10- CM I48.0 Paroxys mal atrial fibrill ation HERNANDEZ GEE E 08/10 [facility] [place] [facility] QNHP OL DIG ASSMT&MGMT 11-20 [id number] Diagnos is: ICD-10- CM I48.0 Paroxys mal atrial fibrill ation GUNJAN BRONSON 08/10 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 TTE W/DOPPLER COMPLETE [id number] Diagnos is: ICD-10- CM I48.0 Paroxys mal atrial fibrill ation PEDRO CHISHOLM 08/17 [place] [facility] [place] [facility] OFFICE O/P EST LOW 20 MIN [id number] Diagnos is: ICD-10- CM I48.0 Paroxys mal atrial fibrill ation TINO LABOY 08[facility]17 [facility] [place] Outpatient Encounter [id number] 08/24 [facility] [place] UNLISTED SPEC DERM SVC/PX [id number] Diagnos is: ICD-10- CM Z13.89 Encount er for screeni ng for other disorde r Sandeep IYER 08/24 [facility] OFFICE O/P EST SF 10 MIN [id number] Diagnos is: ICD-10- CM L92.0 Granulo ma JORGE L Cartagena PH J 08/24 [facility] [place] [facility] Outpatient Encounter [id number] 08/24 [facility] Out[facility] Encounter [id number] 08/25 [facility] Out[facility] Encounter [id number] 08/25 [facility] Encounter [id number] 09/08 [facility] [place] TARGETED CASE MANAGEMENT [id number] Shaila ROMO 09/08 [facility] [place] ODONTOPLAS TY 1-2 TEETH [id number] Diagnos is: ICD-10- CM K08.531 Fractur ed dental restora tive materia l with loss of materia l ELDER VALLEJO AM 09/09 [facility] En[facility] [id number] 09/18 [facility] PSYCH DIAGNOSTIC EVALUATION [id number] Diagnos is: ICD-10- CM F43.12 Post-tr aumatic stress disorde r, chronic ROHAN SCALES G 09[place]22 [place] [facility] Outpatient Encounter [id number] 09/25 [facility] QNHP OL DIG ASSMT&MGMT 5-10 [id number] Diagnos is: ICD-10- CM I48.20 Chronic atrial fibrill ation, unspeci ethaned ROHAN RANGEL 09/25 [facility] [place] [facility] Outpatient Encounter [id number] 09/29 [facility] [place] [facility] [place] [facility] INTRAORAL FULL IMAGE SERIES [id number] Diagnos is: ICD-10- CM K03.6 Deposit s [accret ions] on teeth MARCELINA CARREON 10/01 [facility] [place] [facility] Outpatient Encounter [id number] 10/16 [facility] [place] [facility] [place] OFFICE O/P EST LOW 20 MIN [id number] Diagnos is: ICD-10- CM J96.11 Chronic respira tory failure with hypoxia ERLINDA ARBOLEDA 10/29 [facility] [place] HEARING AID REPAIR/MOD IFYING [id number] Diagnos is: ICD-10- CM Z46.1 Encount er for fitting and adjustm ent of hearing aid JABIER GUY 11/06 [facility] [place] [facility] 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 11/23 [facility] Out[facility] Encounter [id number] 11/23 [facility] PSYCH DIAGNOSTIC EVALUATION [id number] Diagnos is: ICD-10- CM R41.3 Other amnesia FEARING,BLAIRE COE A 11/30 [facility] Out[facility] En[facility] [id number] 12/01 [facility] Out[facility] Encounter [id number] 12/03 [facility] Out[facility] Encounter [id number] 12/06 [facility] PSYCL/NR[place] Y[place] T[place] PH[place] [id number] Diagnos is: ICD-10- CM R41.3 Other amnesia FEARING,ME CAROLIN A 12/08 [facility] [place] Outpatient Encounter [id number] 12/24 [place] [facility] Out[facility] Encounter [id number] 1.12/24 [facility] Out[facility] Encounter [id number]/28 [facility] EXTENDED VISUAL FIELD XM [id number] 1. 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, right eye, mild stage OSHINSKIEJOSE J 12/31 [facility] CONFORMITY EVALUATION [id number] Diagnos is: ICD-10- CM Z46.1 Encount er for fitting and adjustm ent of hearing aid CAMINITI,C MIRIAM E 01/01 [facility] Outpatient Encounter [id number] 01/08 [facility] Outpatient Encounter [id number] 01/15 [facility] [place] [facility]LE[facility] FAC[facility] FEE [id number] [id number] Diagnos is: ICD-10- CM F43.10 Post-tr aumatic stress disorde r, unspeci fiSandeep Ortiz 01/20 [facility] OFFICE O/P EST LOW 20 MIN [id number] Diagnos is: ICD-10- CM F43.10 Post-tr aumatic stress disorde r, unspeci fimainor HERNANDEZ,ST EVEN G 01/20 [facility] [place] [facility] CONFORMITY EVALUATION [id number] Diagnos is: ICD-10- CM Z46.1 Encount er for fitting and adjustm ent of hearing aid Shaila BARDALES 02/04 [facility] INTRM OPH EXAM EST PATIENT [id number] Diagnos is: ICD-10- CM 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, right eye, mild stage OSJOSE LOUIE J 02/04 [facility] OFFICE O/P EST MOD 30 MIN [id number] Diagnos is: ICD-10- CM F03.B4 Unspeci fied dementi a, moderat e, with anxiety ARBOLEDA,DA VID A 02/25 [facility] ADMN SARSCOV2 VACC 1 DOSE [id number] ROBLESERLINDA PENAConnor Rose 02/25 [facility] Out[facility] Encounter [id number] 03/17 [facility] En[facility] [id number] 03/30 [facility] HEARING AID REPAIR/MOD IFYING [id number] Diagnos is: ICD-10- CM Z46.1 Encount er for fitting and adjustm ent of hearing aid MILLIE OVALLES JEISON 04/15 [facility] En[facility] [id number] [facility] En[facility] [id number] 04/22 [facility] NQHP OL DIG ASSMT&MGMT 5-10 [id number] Diagnos is: ICD-10- CM Z79.01 [facility] (curren t) use of anticoa gulants TATI YU 04/23 [facility] En[facility] [id number] 04/23 [facility] Encounter [id number] 04/26 [facility] FEE [id number] 1BY. 71 Diagnos is: ICD-10- CM F43.10 Post-tr aumatic stress disorde r, unspeci fimainor WHITEBANDE,O LUBOWALE 04/28 [facility] OFFICE O/P EST LOW 20 MIN [id number] Diagnos is: ICD-10- CM F43.10 Post-tr aumatic stress disorde r, unspeci ST Luis EVEN G 04/28 [facility] Outpatient Encounter [id number] 05/11 [facility] HEARING AID FITTING/CH ECKING [id number] Diagnos is: ICD-10- CM Z46.1 Encount er for fitting and adjustm ent of hearing aid JABIER GUY 05/11 [place] [facility] [place] [place] [facility]AC[facility] FEE [id number] Diagnos is: ICD-10- CM F43.10 Post-tr aumatic stress disorde r, unspeci hector WHITEBANDE,O LUBOWALE 05/26 [facility] OFFICE O/P EST LOW 20 MIN [id number] Diagnos is: ICD-10- CM F43.10 Post-tr aumatic stress disorde r, unspeci ST Luis EVEN Farrukh 05/26 [facility] Social History Combined list of available smoking, tobacco, and other social history from [facility] Defense and [facility] facilities. Social History Type Response Date Comment Sourc e Tobacco smoking status NHIS [facility]AC[facility] NEVER USED 08[facility]2023 [facility] History of tobacco use VA-TOBACCO NEVER USED 06/[facility]2023 [facility] History of tobacco use VA-TOBACCO NEVER USED 07/04/2022 [facility] History of tobacco use VA-TOBACCO FORMER USER 10/11/[facility] History of tobacco use VA-TOBACCO QUIT YRS OR MORE 08/03/2019 [facility] History [facility] tobacco use [place] FORMER USER 06/03/2018 [facility] History of tobacco use QUIT TOBACCO >7 YEARS AGO 11/13/2017 [facility] History of tobacco use LIFETIME NON-USER OF TOBACCO 12/25/2016 [facility] History of tobacco use QUIT TOBACCO >7 YEARS AGO 01/25/2016 [facility] History of tobacco use CURRENT TOBACCO USER 12/14/2014 [facility] History of tobacco use QUIT TOBACCO >7 YEARS AGO 01/09/2010 [facility] History of tobacco use QUIT TOBACCO >7 YEARS AGO 01/10/2009 [facility] History of tobacco use QUIT TOBACCO >7 YEARS AGO 02/02/2008 [facility] Plan of Care List of future care activities from [facility] facilities. Additional future care activities may be listed in the Assessment and Plan section. Date/Time Care Activity Care Activity Detail [facility] 06/22/2024 AMBULATORY - MEDICINE AMBULATORY - MEDICI [facility] 06/22/2024 AMBULATORY - NONE AMBULATORY - NONE [facility] [place] [facility] 08/25/2024 AMBULATORY - PSYCHIATRY AMBULATORY [place] PSYC [place] [facility] [place] [facility] 08/25/2024 AMBULATORY - PSYCHIATRY AMBULATORY [place]C [place] [facility] [place] [facility] 09/14/2024 AMBULATORY - MEDICINE [facility] Advance Directives List of completed, amended, or rescinded Advance Directives on record at Department of [facility] facilities. An actual copy of the Directive is not included. Date Advance Directive Provider Source 08/25/2023 ADVANCE DIRECTIVE MICHELLE LEVINE [facility]
--- OUTSIDE RECORDS SUMMARY | 2024-06-08 17:45 | XMS_ITS | Clinical Summary ---
Author Organization [facility] Address [address] [place] [address] Phone Care Team Providers Care Acquisition Associate Name Role Phone & Sports Medicine, [facility] Unavailable + [phone] Kenney PARK MD, Christ Hernandez Unavailable +[phone] Leti CUELLO, Maryan Rose Unavailable +[phone] Junaid CUELLO, Bora Unavailable [phone] Andres CUELLO, Narendra Primary Care Provider [phone] Deni Bernabe MD Unavailable [phone] Gloria Morris PA-C Unavailable +[phone] Edita CUELLO, Martinez Unavailable +[phone] Cathy CUELLO, Sylvester Penaloza Unavailable + [phone] Smiley Calderon Unavailable [phone] Dane Rasmussen MD Unavailable [phone] Colton Guardado MD Unavailable [phone] Mt Mistry DO Unavailable [phone] Kay CUELLO, Merle Unavailable [phone] Reason for Visit and Chief Complaint [Patient Encounter] Problems Includes: Problems addressed during this encounter and other active Problems All Visits Onset Date Resolved Date Provider Condition S tatus 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 06/25/2021 Gloria Odioso Arturo PA-C Active Last Documented On 04/02/2022 10:30AM ; [facility] Note: 50-69% left, non surgical in [address] gar, repeat in one year Diabetes Mellitus Type 2 with Complication 06/25/2021 Gloria MOFFETT-C Active Last Documented On 2 10:45AM ; [facility] Chronic Respiratory Failure 07/04/2020 Narendra miramontes MD Active Last Documented On 07/04/2020 11:28AM ; [facility] Note: on continuous home oxygen Coronary Artery Disease 04/21/2019 Jessica Mony yarbrough SEAM PRESS OPERATOR Active Last Documented On 0 8:03AM ; [facility] Atherosclerosis Coronary Art maryann with Angina Pectoris 01/15/2019 Gloria MOFFETT-C Active Last Documented On 9 9:21AM ; [facility] Edema 01/14/2019 Philip BECKER Active Last Documented On 9 2:52PM ; [facility] 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 Gloria MOFFETT-C Active Last Documented On 9 8:57AM ; [facility] Note: per pulm notedECHO with 45-50%, mi ldly reduced LVSF 06/2017 Osteoarthritis Localized Primary Knees Bilateral 04/03/2018 Juany loyola PA-C Active Last Documented On 8 11:45AM ; [facility] 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 Narendra Campos MD Active Last Documented On 8 11:49AM ; [facility] Colon Polyps 06/20/2017 Martinez Kohler MD Active Last Documented On 8 11:24AM ; [facility] Atrial Fibrillation 10/10/2015 Narendra Campos MD Active Last Documented On 6 9:16AM ; [facility] Note: s/p ablation Chronic Obstructive Pulmonary Disease 11/29/2013 Narendra Campos MD Active Last Documented On 4 2:43PM ; [facility] Post-traumatic Stress Disorder 11/29/2013 Jt Campos MD Active Last Documented On 4 10:39AM ; [facility] Patellar Chondromalacia 03/02/2013 Narendra baltazar MD Active Last Documented On 4 7:42AM ; [facility] Note: Unchanged Asthma 09/04/2012 Narendra Campos MD Activ e Last Documented On 4 7:42AM ; [facility] Atherosclerosis Aorta 03/26/2012 Narednra mendez MD Active Last Documented On 4 7:42AM ; [facility] Note: on ct scan Rhinitis 08/04/2009 Narendra Campos MD Activ e Last Documented On 4 7:42AM ; [facility] Note: Unchanged Esophagitis Chronic Reflux 07/28/2009 Gloria Morris PA-C Active Last Documented On 4 2:20PM ; [facility] Note: Unchanged Hypertension Systemic 07/28/2009 Norma PANDEY Active Last Documented On 0 6:29PM ; [facility] Note: Unchanged Colonic Diverticulosis 10/06/2007 Narendra oconnor MD Active Last Documented On 4 7:42AM ; [facility] Note: Unchanged Hyperlipidemia Mixed 10/06/2007 Narendra gomez MD Active Last Documented On 4 7:42AM ; [facility] Note: Unchanged Plan of Treatment Pending Tests Order Diagnosis Results Due Ordering P rovider ZZZ Training BardyDx Paroxysmal atria l fibrillation 05/18/21 Colton Guardado MD Last Documented On 2 4:50PM ; [facility] ZZZ Training BardyDx Palpitations 05/25/21 Colton Garcia MD Last Documented On 2 5:47AM ; [facility] Care Programs Check if Patient is Eligible for CCM Services Last Documented On 8 12:04AM ; [facility] Future Tests Order Diagnosis Results Due Ordering Pr ovider Cardiology Studies Tilt Table Test Athscl heart disease of [place] coronary artery w/o [facility] 10/27/19 Colton Guardado MD Last Documented On 0 3:58PM ; [facility] Cardiology Studies Nuclear Stress Test Athscl heart disease of [place] coronary artery w/o [facility] 10/27/19 Colton Guardado MD Last Documented On 0 3:59PM ; [facility] Studies Echocardiogram Athscl heart disease of [place] coronary artery w/o [facility] 10/27/19 Colton Guardado MD Last Documented On 0 3:59PM ; [facility] Cardiology Studies Echocardiogram Paroxysmal at rial fibrillation 02/25/22 Colton Guardado MD Last Documented On 2 12:04PM ; [facility] Assessments Includes: Assessments from this encounter [...] refills Diagnosis: 1 once daily Pharmacy: [facility] - [id number], [id number] - Last Documented On 4 10:28AM By Neo Lovelace ; [facility] Current Medications (continue as prescribed) Trelegy Ellipta 100-62.5-25 MCG/ACT Inhalation Aerosol Powder Breath Activated 05/13/2023 Provider: Shubham Patel APRN Diagnosis: Chronic obstruct ana m pulmonary disease, unspecified 1 puff qd Last Documented On 4 2:24PM By Shubham Patel APRN ; [facility] Albuterol Sulfate HFA 108 (9 0 Base) MCG/ACT Inhalation Aerosol Solution 05/13/2023 Provider: Brittany Patel APRN Diagnosis: Shortness of tristin ath 2 puffs q4h prn Last Documented On 4 2:24PM By Shubham Patel APRN ; [facility] Levocetirizine Dihydrochlori de 5 MG Oral Tablet 05/13/2023 Provider: Shubham Patel APRN Diagnosis: Allergic rhiniti s, unspecified 1 once daily Last Documented On 4 2:24PM By Shubham Patel APRN ; [facility] Albuterol Sulfate HFA 108 (90 Base) MCG/ACT Inhalation Aerosol Solution 07/19/2022 Provider: Frannie Guirdy DNP MANAGER FLOAT-BC Diagnosis: Shortness of tristin ath 2 puffs q4h prn Last Documented On 3 9:03AM By Frannie Garrison APRN ; [facility] Oxygen Inhalation Gas 04/02/2022 Provider: Diagnosis: Last Documented On 2 10:09AM By Gloria Morris PA-C ; [facility] Atorvastatin Calcium 80 MG Oral Tablet 02/20/2021 Provider: Gloria Briscoe Diagnosis: Mixed hyperlipid emia 1 once daily Last Documented On 2 9:52AM By Arlette Aj ; [facility] hydrALAZINE HCl 25 MG OR TABS 12/29/2020 Provider: Colton Guardado MD Diagnosis: every 8 hours as needed for for BP over 160 Last Documented On 2 9:53AM By Arlette Aj ; [facility] Metoprolol Succinate ER 50 M G Oral Tablet Extended Release 24 Hour 07/14/2020 Provider: Diagnosis: Last Documented On 1 4:45AM By Jessica BECKER ; [facility] Furosemide 20 MG OR TABS 06/24/2019 Provider: Keegan Guardado MD Diagnosis: 1 once daily Last Documented On 1 11:14AM By Aleah Cerda ; [facility] Fluticasone Propionate 50MCG/ACT Nasal Suspension 02/19/2019 Provider: Gloria Morris PA-C Diagnosis: Chronic sinusiti s, unspecified use as directed 2 sprays eac h nare daily Last Documented On 9 8:23AM By Savita Caal ; [facility] Primidone 50 MG OR TABS 10/13/2018 Provider: Supriya Lombardo DO Diagnosis: Tremor, unspecif ied 3po q HS Last Documented On 9 8:22AM By Savita Caal ; [facility] Sertraline HCl 100MG Oral Tablet 09/07/2017 Provider : Diagnosis: Last Documented On 8 2:34PM By Colton Guardado M.D. ; [facility] Aspirin EC Low Dose 81MG Oral Tablet Delayed Release 0 07/11/2016 Provider: Diagnosis: Last Documented On 7 4:19PM By Colton Guardado M.D. ; [facility] Pradaxa 150MG Oral Capsule 07/11/2016 Provider: Diagnosis: Last Documented On 7 4:15PM By Colton Guardado M.D. ; [facility] Temazepam 15 MG OR CAPS 07/20/2014 Provider: Janay Morris PA-C Diagnosis: Long-term use of high-risk meds. 1-2 qHS prn. Last Documented On 5 11:02AM By Gloria Morris PA-C ; [facility] Medications Administered Includes: Administered Medications from [...] Active Last Documented On 06/16/2023 2:04PM ; [facility] Note: facial lip swelling listaprill Allergy swollen 07/13/2020 Active Last Documented On 4 2:04PM ; [facility] Encounters Encounter Provider Location Date Check-In Time Check-Out Time Diagnosis [Patient Encounter] Colton Guardado MD 4 9:58AM 11:59PM Insurance Includes: Active Insurance Policies Plan Name Member ID Group # Subscriber Relationship Effect ana m Dates 1 - Medicare Part B [id number] Nick Oliva Self 2 - Common Wealth Serrvice/ Unicare [id number] Nick Oliva Self 07/13 - Unknown Advance Directives Includes: Current Advance Directives Directive Pat Aware Third Alliance Party Effective Date Reviewed [facility] Power of Overnight Cashier/Healthcare Surrogate Yes 08/08/2017 Current and Verified Clinical Notes Includes: Clinical Notes from this encounter No Clinical Notes Recorded
--- OUTSIDE RECORDS SUMMARY | 2024-06-08 17:45 | XMS_ITS | Clinical Summary ---
Author Organization [facility] Address [address] [place] [address] Phone Care Team Providers Care Tv Production Assistant Name Role Phone & Sports Medicine, [facility] Unavailable + [phone] Kenney PARK MD, Christ Hernandez Unavailable [phone] Leti CUELLO, Maryan Rose Unavailable [phone] Junaid CUELLO, Bora Unavailable [phone] Andres CUELLO, Narendra Primary Care Provider [phone] Deni Bernabe MD Unavailable [phone] Gloria Morris PA-C Unavailable [phone] Edita CUELLO, Martinez Unavailable [phone] Cathy CUELLO, Sylvester Penaloza Unavailable + [phone] Smiley Calderon Unavailable [phone] Dane Rasmussen MD Unavailable [phone] Colton Guardado MD Unavailable [phone] Mt Mistry DO Unavailable [phone] Kay CUELLO, Merle Unavailable [phone] Reason for Visit and Chief Complaint [Patient Encounter] Problems Includes: Problems addressed during this encounter and other active Problems All Visits Onset Date Resolved Date Provider Condition S tatus 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 06/25/2021 Gloria Odioso Arturo PA-C Active Last Documented On 04/02/2022 10:30AM ; [facility] Note: 50-69% left, non surgical [place] [address] gar, repeat in one year Diabetes Mellitus Type 2 with Complication 06/25/2021 Gloria MOFFETT-C Active Last Documented On 2 10:45AM ; [facility] Chronic Respiratory Failure 07/04/2020 Narendra miramontes MD Active Last Documented On 07/04/2020 11:28AM ; [facility] Note: on continuous home oxygen Coronary Artery Disease 04/21/2019 Jessica Mony yarbrough RIPRAP MAN Active Last Documented On 0 8:03AM ; [facility] Atherosclerosis Coronary Art maryann with Angina Pectoris 01/15/2019 Gloria MOFFETT-C Active Last Documented On 9 9:21AM ; [facility] Edema 01/14/2019 Philip BECKER Active Last Documented On 9 2:52PM ; [facility] 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 Gloria MOFFETT-C Active Last Documented On 9 8:57AM ; [facility] Note: per pulm notedECHO with 45-50%, mi ldly reduced LVSF 06/2017 Osteoarthritis Localized Primary Knees Bilateral 04/03/2018 Juany lyoola PA-C Active Last Documented On 8 11:45AM ; [facility] 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 Narendra Campos MD Active Last Documented On 8 11:49AM ; [facility] Colon Polyps 06/20/2017 Martinez Kohler MD Active Last Documented On 8 11:24AM ; [facility] Atrial Fibrillation 10/10/2015 Narendra Campos MD Active Last Documented On 6 9:16AM ; [facility] Note: s/p ablation Chronic Obstructive Pulmonary Disease 11/29/2013 Narendra Campos MD Active Last Documented On 4 2:43PM ; [facility] Post-traumatic Stress Disorder 11/29/2013 Jt Campos MD Active Last Documented On 4 10:39AM ; [facility] Patellar Chondromalacia 03/02/2013 Narendra baltazar MD Active Last Documented On 4 7:42AM ; [facility] Note: Unchanged Asthma 09/04/2012 Narendra Campos MD Activ e Last Documented On 4 7:42AM ; [facility] Atherosclerosis Aorta 03/26/2012 Narendra mendez MD Active Last Documented On 4 7:42AM ; [facility] Note: on ct scan Rhinitis 08/04/2009 Narendra Campos MD Activ e Last Documented On 4 7:42AM ; [facility] Note: Unchanged Esophagitis Chronic Reflux 07/28/2009 Gloria Morris PA-C Active Last Documented On 4 2:20PM ; [facility] Note: Unchanged Hypertension Systemic 07/28/2009 Norma PANDEY Active Last Documented On 0 6:29PM ; [facility] Note: Unchanged Colonic Diverticulosis 10/06/2007 Narendar oconnor MD Active Last Documented On 4 7:42AM ; [facility] Note: Unchanged Hyperlipidemia Mixed 10/06/2007 Narendra gomez MD Active Last Documented On 4 7:42AM ; [facility] Note: Unchanged Plan of Treatment Pending Tests Order Diagnosis Results Due Ordering P rokaleigh Pulmonology Studies - DME CPAP-(Heated Humidity) Length of need 99 months Obstructive sleep apnea (adult) (pediatric) 05/15/20 Mt Mistry DO Last Documented On 1 2:50PM ; [facility] Pulmonology Studies PFT (Full) Shortness of breath 1 Mt Mistry DO Last Documented On 1 2:37PM ; [facility] Pulmonology Studies Pulmonary Rehab Chronic obst ructive pulmonary disease, unspecified 03/01/21 Mt Mistry DO Last Documented On 1 3:46PM ; [facility] Pulmonology Studies PFT (Full) Shortness of breath 2 Mt Mistry DO Last Documented On 2 11:03AM ; [facility] Pulmonology Studies - DME O2-Length of need 99 months Chronic obstructive pulmonary disease, unspecified 06/30/23 Mt Mistry DO Last Documented On 4 3:12PM ; [facility] Pulmonology Studies - DME Portable Oxygen Concentrator-Length of need 99 mos Chronic obstructive pulmonary disease, unspecified 06/30/23 Mt Mistry DO Last Documented On 4 3:14PM ; [facility] Care Programs Check if Patient is Eligible for CCM Services Last Documented On 8 12:04AM ; [facility] Future Tests Order Diagnosis Results Due Ordering Pr ovider Radiology Studies - Plain Film XRAY-Chest,PA/L AT Chronic obstructive pulmonary disease, unspecified 05/22/20 Mt Mistry DO Last Documented On 1 3:20PM ; [facility] Pulmonology Studies 6 Minute Walk Test Shortness of breath 06/14/20 Mt Mistry DO Last Documented On 1 11:40AM ; [facility] Pulmonology Studies Pulmonary Rehab Chronic obst ructive pulmonary disease, unspecified 01/24/22 Mt Mistry DO Last Documented On 2 8:38AM ; [facility] - *Radiology Study CT Chest- W/O contrast Other pneumonia, unspecified organism 08/15/22 Mt Mistry DO Last Documented On 3 3:12PM ; [facility] Assessments Includes: Assessments from this encounter [...] 4 2:24PM By Shubham Patel APRN ; [facility] Albuterol Sulfate HFA 108 (9 0 Base) MCG/ACT Inhalation Aerosol Solution 05/13/2023 Provider: Brittany Patel APRN Diagnosis: Shortness of tristin ath 2 puffs q4h prn Last Documented On 4 2:24PM By Shubham Patel APRN ; [facility] Levocetirizine Dihydrochlori de 5 MG Oral Tablet 05/13/2023 Provider: Shubham Patel APRN Diagnosis: Allergic rhiniti s, unspecified 1 once daily Last Documented On 4 2:24PM By Shubham Patel APRN ; [facility] Albuterol Sulfate HFA 108 (90 Base) MCG/ACT Inhalation Aerosol Solution 07/19/2022 Provider: Frannie Guidry DNP COUNTER INTELLIGENCE TECHNICIAN-BC Diagnosis: Shortness of tristin ath 2 puffs q4h prn Last Documented On 3 9:03AM By Frannie Garrison APRN ; [facility] Oxygen Inhalation Gas 04/02/2022 Provider: Diagnosis: Last Documented On 2 10:09AM By Gloria Morris PA-C ; [facility] Atorvastatin Calcium 80 MG Oral Tablet 02/20/2021 Provider: Gloria Briscoe Diagnosis: Mixed hyperlipid emia 1 once daily Last Documented On 2 9:52AM By Arlette Aj ; [facility] hydrALAZINE HCl 25 MG OR TABS 12/29/2020 Provider: Colton Guardado MD Diagnosis: every 8 hours as needed for for BP over 160 Last Documented On 2 9:53AM By Arlette Aj ; [facility] Metoprolol Succinate ER 50 M G Oral Tablet Extended Release 24 Hour 07/14/2020 Provider: Diagnosis: Last Documented On 1 4:45AM By Jessica BECKER ; [facility] Furosemide 20 MG OR TABS 06/24/2019 Provider: Keegan Guardado MD Diagnosis: 1 once daily Last Documented On 1 11:14AM By Aleah Cerda ; [facility] Fluticasone Propionate 50MCG/ACT Nasal Suspension 02/19/2019 Provider: Gloria Morris PA-C Diagnosis: Chronic sinusiti s, unspecified use as directed 2 sprays eac h nare daily Last Documented On 9 8:23AM By Savita Caal ; [facility] Primidone 50 MG OR TABS 10/13/2018 Provider: Supriya Lombardo DO Diagnosis: Tremor, unspecif ied 3po q HS Last Documented On 9 8:22AM By Savita Caal ; [facility] Sertraline HCl 100MG Oral Tablet 09/07/2017 Provider : Diagnosis: Last Documented On 8 2:34PM By Colton Guardado M.D. ; [facility] Aspirin EC Low Dose 81MG Oral Tablet Delayed Release 0 07/11/2016 Provider: Diagnosis: Last Documented On 7 4:19PM By Colton Guardado M.D. ; [facility] Pradaxa 150MG Oral Capsule 07/11/2016 Provider: Diagnosis: Last Documented On 7 4:15PM By Colton Guardado M.D. ; [facility] Temazepam 15 MG OR CAPS 07/20/2014 Provider: Janay Morris PA-C Diagnosis: Long-term use of high-risk meds. 1-2 qHS prn. Last Documented On 5 11:02AM By Gloria Morris PA-C ; [facility] Medications Administered Includes: Administered Medications from [...] Active Last Documented On 06/16/2023 2:04PM ; [facility] Note: facial lip swelling listaprill Allergy swollen 07/13/2020 Active Last Documented On 2:04PM ; [facility] Encounters Encounter Provider Location Date Check-In Time Check-Out Time Diagnosis [Patient Encounter] Mt Mistry DO 06/30/2023 3:10PM 11:59PM Insurance Includes: Active Insurance Policies Plan Name Member ID Group # Subscriber Relationship Effect ana m Dates 1 - Medicare Part B [id number] Nick Oliva Self 2 - Common Wealth Serrvice/ Unicare [id number] Nick Oliva Self 07/13 - Unknown Advance Directives Includes: Current Advance Directives Directive Pat Aware Third Libertarian Effective Date Reviewed [facility] Power of Heel Former/Healthcare Surrogate Yes 08/08/2017 Current and Verified Clinical Notes Includes: Clinical Notes from this encounter No Clinical Notes Recorded
--- OUTSIDE RECORDS SUMMARY | 2024-06-08 17:47 | XMS_ITS | Clinical Summary ---
Author Organization [facility] Address [address] [address] Phone Care Team Providers Care Steam Fitter Name Role Phone & Sports Medicine, [facility] Unavailable + [phone] Kenney PARK MD, Christ Hernandez Unavailable [phone] Leti CUELLO, Maryan Rose Unavailable [phone] Junaid CUELLO, Bora Unavailable [phone] Andres CUELLO, Narendra Primary Care Provider [phone] Deni Bernabe MD Unavailable [phone] Gloria Morris PA-C Unavailable +[phone] Edita CUELLO, Martinez Unavailable [phone] Cathy CUELLO, Sylvester Penaloza Unavailable + [phone] Smiley Calderon Unavailable [phone] Valery CUELLO, Dane Unavailable [phone] Colton Guardado MD Unavailable [phone] Mt Mistry DO Unavailable [phone] Kay CUELLO, Merle Unavailable [phone] Reason for Visit and Chief Complaint [facility] Medicare Follow Up Visit Problems Includes: Problems addressed during this encounter and other active Problems All Visits Onset Date Resolved Date Provider Condition S tatus 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 06/25/2021 Gloria Morris PA-C Active Last Documented On 04/02/2022 10:30AM ; [facility] Note: 50-69% left, non surgical in [address] gar, repeat in one year Diabetes Mellitus Type 2 with Complication 06/25/2021 Gloria BEARC Active Last Documented On 2 10:45AM ; [facility] Chronic Respiratory Failure 07/04/2020 Narendra miramontes MD Active Last Documented On 07/04/2020 11:28AM ; [facility] Note: on continuous home oxygen Coronary Artery Disease 04/21/2019 Jessica MODIP Active Last Documented On 0 8:03AM ; [facility] Atherosclerosis Coronary Art maryann with Angina Pectoris 01/15/2019 Gloria MOFFETT-C Active Last Documented On 9 9:21AM ; [facility] Edema 01/14/2019 Philip BECKER Active Last Documented On 9 2:52PM ; [facility] 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 Gloria MOFFETT-C Active Last Documented On 9 8:57AM ; [facility] Note: per pulm notedECHO with 45-50%, mi ldly reduced LVSF 06/2017 Osteoarthritis Localized Primary Knees Bilateral 04/03/2018 Juany MOFFETT-C Active Last Documented On 8 11:45AM ; [facility] 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 Narendra Campos MD Active Last Documented On 8 11:49AM ; [facility] Colon Polyps 06/20/2017 Martinez Kohler MD Active Last Documented On 8 11:24AM ; [facility] Atrial Fibrillation 10/10/2015 Narendra Campos MD Active Last Documented On 6 9:16AM ; [facility] Note: s/p ablation Chronic Obstructive Pulmonary Disease 11/29/2013 Narendra Campos MD Active Last Documented On 4 2:43PM ; [facility] Post-traumatic Stress Disorder 11/29/2013 Jt Campos MD Active Last Documented On 4 10:39AM ; [facility] Patellar Chondromalacia 03/02/2013 Narendra baltazar MD Active Last Documented On 4 7:42AM ; [facility] Note: Unchanged Asthma 09/04/2012 Narendra Campos MD Activ e Last Documented On 4 7:42AM ; [facility] Atherosclerosis Aorta 03/26/2012 Narendra mendez MD Active Last Documented On 4 7:42AM ; [facility] Note: on ct scan Rhinitis 08/04/2009 Narendra Campos MD Activ e Last Documented On 4 7:42AM ; [facility] Note: Unchanged Esophagitis Chronic Reflux 07/28/2009 Gloria Morris PA-C Active Last Documented On 4 2:20PM ; [facility] Note: Unchanged Hypertension Systemic 07/28/2009 Norma PANDEY Active Last Documented On 0 6:29PM ; [facility] Note: Unchanged Colonic Diverticulosis 10/06/2007 Narendra oconnor MD Active Last Documented On 4 7:42AM ; [facility] Note: Unchanged Hyperlipidemia Mixed 10/06/2007 Narendra gomez MD Active Last Documented On 4 7:42AM ; [facility] Note: Unchanged Plan of Treatment Pending Tests Order Diagnosis Results Due Ordering P rovider Lab Neuropathy (RO) 04/29/23 Gloria Morris PA-C Last Documented On 4 3:03PM ; [facility] Lab Hemoglobin A1c 04/29/23 Gloria Morris PA-C Last Documented On 4 3:03PM ; [facility] Lab Antinuclear Antibodies, IFA 04/29/23 Gloria Morris PA-C Last Documented On 4 3:03PM ; [facility] Lab Vitamin B12 04/29/23 Gloria Chino Arturo PA-C Last Documented On 4 3:03PM ; [facility] Basic Metabolic Panel (8) 04/29/23 Gloria Raman Morris PA-C Last Documented On 4 3:03PM ; [facility] COMPLETE BLOOD COUNT 04/29/23 Janay garcias Raman Morris PA-C Last Documented On 4 3:03PM ; [facility] Lab SED RATE, iSED 04/29/23 Glorianatividad thurmanpatricia Morris PA-C Last Documented On 4 3:03PM ; [facility] Folate (Folic Acid), Serum 04/29/23 Gloria Raman MOFFETT-C Last Documented On 4 3:03PM ; [facility] Thyroxine (T4) Free, Direct, S 04/29 Gloria Morris PA-C Last Documented On 4 3:03PM ; [facility] Hepatitis A Ab, IgM 04/29/23 Christpoher mckeon Raman Morris PA-C Last Documented On 4 3:03PM ; [facility] Hepatitis A Ab, Total 04/29/23 Miguel henson Raman Morris PA-C Last Documented On 4 3:03PM ; [facility] Hepatitis B Core Ab, Tot 04/29/23 Gloria Morris PA-C Last Documented On 4 3:03PM ; [facility] Hepatitis B Surface Ag 04/29/23 helen Morris PA-C Last Documented On 4 3:03PM ; [facility] Lab HEPATITIS B CORE AB TOTAL W/REFL IGM 04/29/23 Gloria Morris PA-C Last Documented On 4 3:03PM ; [facility] Hepatitis B Core Ab, IgM 04/29/23 Gloria Morris PA-C Last Documented On 4 3:03PM ; [facility] Hepatic Function Panel (7) 04/29/23 Gloria Wileytoni MOFFETT-Shaila Last Documented On 4 3:03PM ; [facility] Albumin/Creat Ratio Urine 04/29/23 Gloria Wileytoni Morris PA-C Last Documented On 4 3:03PM ; [facility] Lab RPR 04/29/23 Glorianatividad Morris PA-C Last Documented On 4 3:03PM ; [facility] Protein Electro.,S 04/29/23 Gloria Raman MOFFETT-Shaila Last Documented On 4 3:03PM ; [facility] Lab TSH 04/29/23 Gloria Morris PA-C Last Documented On 4 3:03PM ; [facility] Protein Electro, Random Urine Glorianatividad Morris PA-C Last Documented On 4 3:03PM ; [facility] Vitamin D, 25-Hydroxy 04/29/23 Miguel henson Raman Morris PA-C Last Documented On 4 3:03PM ; [facility] Care Programs Check if Patient is Eligible for [facility] Services Last Documented On 8 12:04AM ; [facility] Future Tests Order Diagnosis Results Due Ordering Pr ovider Radiology Studies - Ultrasound U/S-Soft 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 04/18/21 Gloria Morris PA-C Last Documented On 1 10:13AM ; [facility] Radiology Studies - Vascular Ultrasound Carotid Doppler Dizziness and giddiness 05/15/21 Gloria MOFFETT-Shaila Last Documented On 2 10:33AM ; [facility] Refer To Neurology Dizziness and giddiness 06/07/21 Tremaine MOFFETT-Shaila Last Documented On 2 1:34PM ; [facility] Refer To ENT Dizziness and giddiness 06/07/21 Tremaine MOFFETT-C Last Documented On 2 1:34PM ; [facility] Refer To Cardiology Cardiac arrhythmia, unspecified 05/16 08/03 Gloria MOFFETT-C Last Documented On 2 1:49PM ; [facility] Refer To Surgery-Vascular Occlusion and s tenosis of left carotid artery 06/20/21 Gloria Morris PA-C Last Documented On 2 9:10AM ; [facility] Refer To Gastroenterology Polyp of colon 12/12/22 Janay garcias Raman MOFFETT-C Last Documented On 3 1:44PM ; [facility] Lab NEETA (RO1) 04/29/23 Gloria MOFFETT-C Last Documented On 4 8:52AM ; [facility] Lab CBC (RO1) 04/29/23 Gloria MOFFETT-C Last Documented On 4 8:52AM ; [facility] Vitamin B12 (RO1) 04/29/23 Gloria Morris PA-C Last Documented On 4 8:52AM ; [facility] Vitamin D 25 hydroxy (RO1) 04/29/23 Gloria MOFFETT-C Last Documented On 4 8:52AM ; [facility] TSH , Free T4 (GVC) 04/29/23 Christopher linda Raman MOFFETT-Shaila Last Documented On 4 8:52AM ; [facility] Diabetes Panel (RO) 05/22/23 Ra helen MOFFETT-Shaila Last Documented On 3 1:28PM ; [facility] Refer To Neurology Dizziness and giddiness 05/22/23 Tremaine MOFFETT-Shaila Last Documented On 4 8:55AM ; [facility] Refer To Physical Therapy Dizziness and giddiness Gloria MOFFETT-C Last Documented On 4 8:55AM ; [facility] Assessments Includes: Assessments from this encounter [...] 4 2:24PM By Shubham Patel APRN ; [facility] Albuterol Sulfate HFA 108 (9 0 Base) MCG/ACT Inhalation Aerosol Solution 05/13/2023 Provider: Brittany Patel APRN Diagnosis: Shortness of tristin ath 2 puffs q4h prn Last Documented On 4 2:24PM By Shubham Patel APRN ; [facility] Levocetirizine Dihydrochlori de 5 MG Oral Tablet 05/13/2023 Provider: Shubham aPtel APRN Diagnosis: Allergic rhiniti s, unspecified 1 once daily Last Documented On 4 2:24PM By Shubham Patel APRN ; [facility] Albuterol Sulfate HFA 108 (90 Base) MCG/ACT Inhalation Aerosol Solution 07/19/2022 Provider: Frannie MODI P DNP DRILLING ASSISTANT-BC Diagnosis: Shortness of tristin ath 2 puffs q4h prn Last Documented On 3 9:03AM By Frannie Garrison APRN ; [facility] Oxygen Inhalation Gas 04/02/2022 Provider: Diagnosis: Last Documented On 2 10:09AM By Gloria Morris PA-C ; [facility] Atorvastatin Calcium 80 MG Oral Tablet 02/20/2021 Provider: Gloria Briscoe Diagnosis: Mixed hyperlipid emia 1 once daily Last Documented On 2 9:52AM By Arlette Aj ; [facility] hydrALAZINE HCl 25 MG OR TABS 12/29/2020 Provider: Colton Guardado MD Diagnosis: every 8 hours as needed for for BP over 160 Last Documented On 2 9:53AM By Arlette Aj ; [facility] Metoprolol Succinate ER 50 M G Oral Tablet Extended Release 24 Hour 07/14/2020 Provider: Diagnosis: Last Documented On 1 4:45AM By Jessica BECKER ; [facility] Furosemide 20 MG OR TABS 06/24/2019 Provider: Keegan Guardado MD Diagnosis: 1 once daily Last Documented On 1 11:14AM By Aleah Cerda ; [facility] Fluticasone Propionate 50MCG/ACT Nasal Suspension 02/19/2019 Provider: Gloria Morris PA-C Diagnosis: Chronic sinusiti s, unspecified use as directed 2 sprays eac h nare daily Last Documented On 9 8:23AM By Savita Caal ; [facility] Primidone 50 MG OR TABS 10/13/2018 Provider: Supriya Lombardo DO Diagnosis: Tremor, unspecif ied 3po q HS Last Documented On 9 8:22AM By Savita Caal ; [facility] Sertraline HCl 100MG Oral Tablet 09/07/2017 Provider : Diagnosis: Last Documented On 8 2:34PM By Colton Guardado M.D. ; [facility] Aspirin EC Low Dose 81MG Oral Tablet Delayed Release 0 07/11/2016 Provider: Diagnosis: Last Documented On 7 4:19PM By Colton Guardado M.D. ; [facility] Pradaxa 150MG Oral Capsule 07/11/2016 Provider: Diagnosis: Last Documented On 7 4:15PM By Colton Guardado M.D. ; [facility] Temazepam 15 MG OR CAPS 07/20/2014 Provider: Janay Morris PA-C Diagnosis: Long-term use of high-risk meds. 1-2 qHS prn. Last Documented On 5 11:02AM By Gloria Morris PA-C ; [facility] Medications Administered Includes: Administered Medications from [...] Active Last Documented On 06/16/2023 2:04PM ; [facility] Note: facial lip swelling listaprill Allergy swollen 07/13/2020 Active Last Documented On 2:04PM ; [facility] Insurance Includes: Active Insurance Policies Plan Name Member ID Group # Subscriber Relationship Effect ana m Dates 1 - Medicare Part B [id number] Nick Oliva Self 2 - [employer] [place]/ Jenniffer [id number] Nick Oliva Self 07/13 - Unknown Advance Directives Includes: Current Advance Directives Directive Pat Aware Third Libertarian Effective Date Reviewed [facility] Power of Position Classifier/Healthcare Surrogate Yes 08/08/2017 Current and Verified Clinical Notes Includes: Clinical Notes from this encounter No Clinical Notes Recorded
--- OUTSIDE RECORDS SUMMARY | 2024-06-08 17:47 | XMS_ITS | Clinical Summary ---
Author Organization [facility] / [facility] Address [address] [place] [address] Phone Care Team Providers Care Leadite Man Name Role Phone & Sports Medicine, [facility] Unavailable + [phone] Kenney PARK MD, Christ Hernandez Unavailable [phone] Leti CUELLO, Maryan Rose Unavailable [phone] Junaid CUELLO, Bora Unavailable [phone] Andres CUELLO, Narendra Primary Care Provider [phone] Deni Bernabe MD Unavailable [phone] Gloria Morris PA-C Unavailable [phone] Edita CUELLO, Martinez Unavailable [phone] Cathy CUELLO, Sylvester Penaloza Unavailable + [phone] Smiley Calderon Unavailable [phone] Valery CUELLO, Dane Unavailable [phone] Colton Guardado MD Unavailable [phone] [place] DO Unavailable [phone] Kay CUELLO, Merle Unavailable [phone] Reason for Visit and Chief Complaint [facility] Medicare Follow Up Visit Problems Includes: Problems addressed during this encounter and other active Problems Current Visit Onset Date Resolved Date Provider Osvaldo laura Status 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 06/25/2021 Gloria Odioso Arturo PA-C Active Last Documented On 04/02/2022 10:30AM ; [facility] Note: 50-69% left, non surgical in [address] gar, repeat in one year Diabetes Mellitus Type 2 with Complication 06/25/2021 Gloria MOFFETT-C Active Last Documented On 2 10:45AM ; [facility] Chronic Respiratory Failure 07/04/2020 Narendra miramontes MD Active Last Documented On 07/04/2020 11:28AM ; [facility] Note: on continuous home oxygen Coronary Artery Disease 04/21/2019 Jessica MODIP Active Last Documented On 0 8:03AM ; [facility] Atherosclerosis Coronary Art maryann with Angina Pectoris 01/15/2019 Gloria MOFFETT-C Active Last Documented On 9 9:21AM ; [facility] Edema 01/14/2019 Philip MODIP Active Last Documented On 9 2:52PM ; [facility] Coronary Artery Disease 10/22/2018 Gloria Morris PA-C Inactive Last Documented On 9 9:21AM ; [facility] 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 Gloria Morris PA-C Active Last Documented On 9 8:57AM ; [facility] Note: per pulm notedECHO with 45-50%, mi ldly reduced LVSF 06/2017 Osteoarthritis Localized Primary Knees Bilateral 04/03/2018 Juany loyola PA-C Active Last Documented On 8 11:45AM ; [facility] 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 Narendra Campos MD Active Last Documented On 8 11:49AM ; [facility] Colon Polyps 06/20/2017 Martinez Kohler MD Active Last Documented On 8 11:24AM ; [facility] Atrial Fibrillation 10/10/2015 Narendra Campos MD Active Last Documented On 6 9:16AM ; [facility] Note: s/p ablation Chronic Obstructive Pulmonary Disease 11/29/2013 Narendra Campos MD Active Last Documented On 4 2:43PM ; [facility] Post-traumatic Stress Disorder 11/29/2013 Jt Campos MD Active Last Documented On 4 10:39AM ; [facility] Patellar Chondromalacia 03/02/2013 Narendra baltazar MD Active Last Documented On 4 7:42AM ; [facility] Note: Unchanged Asthma 09/04/2012 Narendra Campos MD Activ e Last Documented On 4 7:42AM ; [facility] Atherosclerosis Aorta 03/26/2012 Narendra mendez MD Active Last Documented On 4 7:42AM ; [facility] Note: on ct scan Rhinitis 08/04/2009 Narendra Campos MD Activ e Last Documented On 4 7:42AM ; [facility] Note: Unchanged Hypertension Systemic 07/28/2009 Norma PANDEY Active Last Documented On 0 6:29PM ; [facility] Note: Unchanged Colonic Diverticulosis 10/06/2007 Narendra oconnor MD Active Last Documented On 4 7:42AM ; [facility] Note: Unchanged Hyperlipidemia Mixed 10/06/2007 Narendra gomez MD Active Last Documented On 4 7:42AM ; [facility] Note: Unchanged Past Visits Onset Date Resolved Date Provider Condition Status Esophagitis Chronic Reflux 07/28/2009 Gloria Morris PA-C Active Last Documented On 06/16/2023 2:20PM ; [facility] Note: Unchanged Plan of Treatment In reviewing the patient's chart, performing examination and/or evaluation, counseling and education, ordering medications, tests if needed and documentation time spent was a minimum of 30 minutes. - Last Documented On 06/16/2023 3:00PM ; [facility] Visit complexity inherent to evaluation and management associated with medical care services that serve as the continuing focal point for all needed health care services and/or with medical care services that are part of ongoing care related to a patient's single, serious condition or a complex condition - Last Documented On 06/16/2023 3:00PM ; [facility] Pending Tests Order Diagnosis Results Due Ordering P ludmilader Lab Neuropathy (RO) 04/29/23 Gloria Morris PA-C Last Documented On 4 3:03PM ; [facility] Lab Hemoglobin A1c 04/29/23 Gloria Morris PA-C Last Documented On 4 3:03PM ; [facility] Lab Antinuclear Antibodies, IFA 04/29/23 Gloria Morris PA-C Last Documented On 4 3:03PM ; [facility] Lab Vitamin B12 04/29/23 Gloria Morris PA-C Last Documented On 4 3:03PM ; [facility] Lab Basic Metabolic Panel (8) 04/29/23 Gloria Morris PA-C Last Documented On 4 3:03PM ; [facility] Lab COMPLETE BLOOD COUNT 04/29/23 Janay dieter Morris PA-C Last Documented On 4 3:03PM ; [facility] Lab SED RATE, iSED 04/29/23 Gloria Morris PA-C Last Documented On 4 3:03PM ; [facility] Lab Folate (Folic Acid), Serum 04/29/23 Gloria Morris PA-C Last Documented On 4 3:03PM ; [facility] Lab Thyroxine (T4) Free, Direct, S 04/29 Gloria oMrris PA-C Last Documented On 4 3:03PM ; [facility] Lab Hepatitis A Ab, IgM 04/29/23 Christopher Morris PA-C Last Documented On 4 3:03PM ; [facility] Lab Hepatitis A Ab, Total 04/29/23 Miguel Morris PA-C Last Documented On 4 3:03PM ; [facility] Lab Hepatitis B Core Ab, Tot 04/29/23 Gloria Morris PA-C Last Documented On 4 3:03PM ; [facility] Lab Hepatitis B Surface Ag 04/29/23 Ra helen Morris PA-C Last Documented On 4 3:03PM ; [facility] HEPATITIS B CORE AB TOTAL W/REFL IGM 04/29/23 Gloria Morris PA-C Last Documented On 4 3:03PM ; [facility] Hepatitis B Core Ab, IgM 04/29/23 Gloria Morris PA-C Last Documented On 4 3:03PM ; [facility] Hepatic Function Panel (7) 04/29/23 Gloria Morris PA-C Last Documented On 4 3:03PM ; [facility] Albumin/Creat Ratio Urine 04/29/23 Gloria Morris PA-C Last Documented On 4 3:03PM ; [facility] Lab RPR 04/29/23 Gloria Morris PA-C Last Documented On 4 3:03PM ; [facility] Lab Protein Electro.,S 04/29/23 Gloria Morris PA-C Last Documented On 4 3:03PM ; [facility] Lab TSH 04/29/23 Gloria Morris PA-C Last Documented On 4 3:03PM ; [facility] Lab Protein Electro, Random Urine Gloria Morris PA-C Last Documented On 4 3:03PM ; [facility] Vitamin D, 25-Hydroxy 04/29/23 Miguel Morris PA-C Last Documented On 4 3:03PM ; [facility] Care Programs Check if Patient is Eligible for CCM Services Last Documented On 8 12:04AM ; [facility] Future Tests Order Diagnosis Results Due Ordering Pr ovider Radiology Studies - Ultrasound U/S-Soft 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 04/18/21 Gloria Raman MOFFETT-Shaila Last Documented On 1 10:13AM ; [facility] Radiology Studies - Vascular Ultrasound Carotid Doppler Dizziness and giddiness 05/15/21 Gloria Raman Morris PA-C Last Documented On 2 10:33AM ; [facility] Refer To Neurology Dizziness and giddiness 06/07/21 Tremaine daniellelinda Morris PA-C Last Documented On 2 1:34PM ; [facility] Refer To ENT Dizziness and giddiness 06/07/21 R ledy MOFFETT-C Last Documented On 2 1:34PM ; [facility] Refer To Cardiology Cardiac arrhythmia, unspecified 05/16 08/03 Gloria MOFFETT-C Last Documented On 2 1:49PM ; [facility] Refer To Surgery-Vascular Occlusion and s tenosis of left carotid artery 06/20/21 Gloria Raman MOFFETT-C Last Documented On 2 9:10AM ; [facility] Refer To Gastroenterology Polyp of colon 12/12/22 Janay garcias Raman MOFFETT-Shaila Last Documented On 3 1:44PM ; [facility] Lab NEETA (RO1) 04/29/23 Gloria MOFFETT-C Last Documented On 4 8:52AM ; [facility] Lab CBC (RO1) 04/29/23 Gloria MOFFETT-C Last Documented On 4 8:52AM ; [facility] Lab Vitamin B12 (RO1) 04/29/23 Gloria MOFFETT-C Last Documented On 4 8:52AM ; [facility] Lab Vitamin D 25 hydroxy (RO1) 04/29/23 Glorianatividad MOFFETT-C Last Documented On 4 8:52AM ; [facility] Lab TSH , Free T4 (GVC) 04/29/23 Racdanni mckeon Raman MOFFETT-Shaila Last Documented On 4 8:52AM ; [facility] Lab Diabetes Panel (RO) 05/22/23 Ra helen MOFFETT-Shaila Last Documented On 3 1:28PM ; [facility] Refer To Neurology Dizziness and giddiness 05/22/23 R ledy MOFFETT-Shaila Last Documented On 4 8:55AM ; [facility] Refer To Physical Therapy Dizziness and giddiness Gloria MOFFETT-Shaila Last Documented On 4 8:55AM ; [facility] Assessments Includes: Assessments from this encounter Findings - Allergic rhinitis due to food - Last Documented On 06/16/2023 3:00PM ; [facility] - Unspecified atrial fibrillation - Last Documented On 06/16/2023 3:00PM ; [facility] - Atherosclerotic heart disease of [place] coronary artery without angina pectoris - Last Documented On 06/16/2023 3:00PM ; [facility] - Chronic combined systolic (congestive) and diastolic (congestive) heart failure - Last Documented On 06/16/2023 3:00PM ; [facility] - Essential (primary) hypertension - Last Documented On 06/16/2023 3:00PM ; [facility] - Atherosclerosis of aorta - Last Documented On 06/16/2023 3:00PM ; [facility] - Atherosclerotic heart disease of [place] coronary artery with other forms of angina pectoris - Last Documented On 06/16/2023 3:00PM ; [facility] - Occlusion and stenosis of left carotid artery - Last Documented On 06/16/2023 3:00PM ; [facility] - Edema, unspecified - Last Documented On 06/16/2023 3:00PM ; [facility] - Mild intermittent asthma, uncomplicated - Last Documented On 06/16/2023 3:00PM ; [facility] - Chronic obstructive pulmonary disease, unspecified - Last Documented On 06/16/2023 3:00PM ; [facility] - Chronic respiratory failure with hypoxia - Last Documented On 06/16/2023 3:00PM ; [facility] - Sleep apnea, unspecified - Patient reports feeling tired all the time and not getting good sleep at night due to issues with CPAP use. - Last Documented On 06/16/2023 3:00PM ; [facility] - Plan: Continue CPAP, following with pumlonology - Last Documented On 06/16/2023 3:00PM ; [facility] - Sleep apnea, unspecified - Last Documented On 06/16/2023 3:00PM ; [facility] - Polyp of colon - Last Documented On 06/16/2023 3:00PM ; [facility] - Diverticulosis of large intestine without perforation or abscess without bleeding - Last Documented On 06/16/2023 3:00PM ; [facility] - Body mass index [BMI] 28.0-28.9, adult - Last Documented On 06/16/2023 3:00PM ; [facility] - Mixed hyperlipidemia - Last Documented On 06/16/2023 3:00PM ; [facility] - Type 2 diabetes mellitus with other specified complication - Note the patient's A1C level at 6.8, indicative of type 2 diabetes mellitus, - Last Documented On 06/16/2023 3:00PM ; [facility] - Recommend dietary modifications, emphasizing the reduction of sugar intake - Last Documented On 06/16/2023 3:00PM ; [facility] - Hypotension, unspecified - Document the patient's low blood pressure readings at 100 over 60 and chronic light-headedness, raising concerns for orthostatic hypotension and the effects of isosorbide. - Last Documented On 06/16/2023 3:00PM ; [facility] - Suggest a tilt table test to investigate orthostatic hypotension. - Last Documented On 06/16/2023 3:00PM ; [facility] - Advise the patient to withhold blood pressure medication if readings are low and to take hydralazine only if blood pressure is elevated. - Last Documented On 06/16/2023 3:00PM ; [facility] - Coordinate with Dr. Guardado's office regarding: - Last Documented On 06/16/2023 3:00PM ; [facility] - The potential discontinuation of isosorbide. - Last Documented On 06/16/2023 3:00PM ; [facility] - Arranging a possible final visit before the patient relocates - Last Documented On 06/16/2023 3:00PM ; [facility] - Primary osteoarthritis, unspecified site - Last Documented On 06/16/2023 3:00PM ; [facility] - Chondromalacia patellae, unspecified knee - Last Documented On 06/16/2023 3:00PM ; [facility] - Dizziness and giddiness - Patient reports a history of falls, lightheadedness, and dizziness, which may be related to a previous stroke and/or peripheral neuropathy from [place] exposure. - Last Documented On 06/16/2023 3:00PM ; [facility] - Possible orthostatic hypotension or vertigo. - Last Documented On 06/16/2023 3:00PM ; [facility] - Complicated case - Last Documented On 06/16/2023 3:00PM ; [facility] - Plan: Refer the patient to a neurologist for further evaluation, would consider possible tilt table test to assess for orthostatic hypotension. Additionally, refer the patient to [facility] for vestibular rehabilitation to address balance issues Labwork WNL - Last Documented On 06/16/2023 3:00PM ; [facility] - Advise patient to f/u with new PCP at the [facility] after re[place]cating to [place] for further evluation - Last Documented On 06/16/2023 3:00PM ; [facility] - Post-traumatic stress disorder, unspecified - Last Documented On 06/16/2023 3:00PM ; [facility] Medication management - Last Documented On 06/16/2023 3:00PM ; [facility] - [facility] prim[facility] for tremors [facility] - Last Documented On 06/16/2023 3:00PM ; [facility] - Plan: Monitor the patient's medication use and consider potential side effects that may contribute to dizziness and balance issues. Encourage the patient to check blood pressure during episodes of dizziness to assess for potential correlation with low blood pressure. - Last Documented On 06/16/2023 3:00PM ; [facility] Medical Equipment - Implanted Devices Includes: Current Devices No Medical Equipment Recorded Medications Includes: Medications discussed during this encounter and other current Medications Discontinued / Stopped on this date Colton Guardado MD on 05/28/2023 Isosorbide Mononitrate ER 30 MG Oral Tablet Extended Release 24 Hour Provider: Colton estrella MD Diagnosis: Last Documented On 4 3:30PM By Arlette Aj ; [facility] Isosorbide Mononitrate ER 30 MG Oral Tablet Extended Release 24 Hour Provider: Colton estrella MD Diagnosis: Last Documented On 4 2:30PM By Gloria Morris PA-C ; [facility] Current Medications (continue as prescribed) Trelegy Ellipta 100-62.5-25 MCG/ACT Inhalation Aerosol Powder Breath Activated 05/13/2023 Provider: Shubham Patel APRN Diagnosis: Chronic obstruct ana m pulmonary disease, unspecified 1 puff qd Last Documented On 4 2:24PM By Shubham Patel APRN ; [facility] Albuterol Sulfate HFA 108 (9 0 Base) MCG/ACT Inhalation Aerosol Solution 05/13/2023 Provider: Brittany Patel APRN Diagnosis: Shortness of tristin ath 2 puffs q4h prn Last Documented On 4 2:24PM By Shubham Patel APRN ; [facility] Levocetirizine Dihydrochlori de 5 MG Oral Tablet 05/13/2023 Provider: Shubham Patel APRN Diagnosis: Allergic rhiniti s, unspecified 1 once daily Last Documented On 4 2:24PM By Shubham Patel APRN ; [facility] Albuterol Sulfate HFA 108 (90 Base) MCG/ACT Inhalation Aerosol Solution 07/19/2022 Provider: Frannie Guidry DNP TREST[employer]-BC Diagnosis: Shortness of tristin ath 2 puffs q4h prn Last Documented On 3 9:03AM By Frannie Garrison APRN ; [facility] Oxygen Inhalation Gas 04/02/2022 Provider: Diagnosis: Last Documented On 2 10:09AM By Gloria Morris PA-C ; [facility] Atorvastatin Calcium 80 MG Oral Tablet 02/20/2021 Provider: Gloria Briscoe Diagnosis: Mixed hyperlipid emia 1 once daily Last Documented On 2 9:52AM By Arlette Aj ; [facility] hydrALAZINE HCl 25 MG OR TABS 12/29/2020 Provider: Colton Guardaod MD Diagnosis: every 8 hours as needed for for BP over 160 Last Documented On 2 9:53AM By Arlette Aj ; [facility] Metoprolol Succinate ER 50 M G Oral Tablet Extended Release 24 Hour 07/14/2020 Provider: Diagnosis: Last Documented On 1 4:45AM By Jessica BECKER ; [facility] Furosemide 20 MG OR TABS 06/24/2019 Provider: Keegan Guardado MD Diagnosis: 1 once daily Last Documented On 1 11:14AM By Aleah Cerda ; [facility] Fluticasone Propionate 50MCG/ACT Nasal Suspension 02/19/2019 Provider: Gloria Morris PA-C Diagnosis: Chronic sinusiti s, unspecified use as directed 2 sprays eac h nare daily Last Documented On 9 8:23AM By Savita Caal ; [facility] Primidone 50 MG OR TABS 10/13/2018 Provider: Supriya Lombardo DO Diagnosis: Tremor, unspecif ied 3po q HS Last Documented On 9 8:22AM By Savita Caal ; [facility] Sertraline HCl 100MG Oral Tablet 09/07/2017 Provider : Diagnosis: Last Documented On 8 2:34PM By Colton Guardado M.D. ; [facility] Aspirin EC Low Dose 81MG Oral Tablet Delayed Release 0 07/11/2016 Provider: Diagnosis: Last Documented On 7 4:19PM By Colton Guardado M.D. ; [facility] Pradaxa 150MG Oral Capsule 07/11/2016 Provider: Diagnosis: Last Documented On 7 4:15PM By Colton Guardado M.D. ; [facility] Temazepam 15 MG OR CAPS 07/20/2014 Provider: Janay Morris PA-C Diagnosis: Long-term use of high-risk meds. 1-2 qHS prn. Last Documented On 5 11:02AM By Gloria Morris PA-C ; [facility] Past Medications on file dilTIAZem HCl ER Coated Beads 240 MG Oral Capsule Extended Release 24 Hour 07/07/2023 - 08/06/2023 Provider: Colton Guardado MD Diagnosis: 1 once daily Last Documented On 4 10:28AM By Neo Lovelace ; [facility] Trelegy Ellipta 100-62.5-25 MCG/ACT Inhalation Aerosol Powder Breath Activated 11/19/2022 - 08/16/2023 Provider: Zofai BECKER Diagnosis: Chronic obstruct ana m pulmonary disease, unspecified 1 puff daily Last Documented On 3 12:17PM By Zofia Barrios APRN ; [facility] Nebulizer/Tubing/Mouthpiece Kit 08/08/19 23 - 12/05/2022 Provider: Sommer BECKER Diagnosis: Chronic obstruct ana m pulmonary disease, unspecified use as directed Last Documented On 3 5:13PM By Lauryn Parr ; [facility] Zetia 10 MG Oral Tablet 04/17/2022 - 01/12/2023 Provider: Colton Guardado MD Diagnosis: Hyperlipidemia, unspecified 1 once daily Last Documented On 3 3:05PM By Sean Plascencia ; [facility] Clobetasol Propionate 0.05% External Cream 01/17/2021 - 03/18/2021 Provider: Smiley BECKER 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 Do not apply to face or groin Last Documented On 1 1:43PM By ROSITA Blackburn ; [facility] Medications Administered Includes: Administered Medications [...] 95 Last Documented: On 06/16/2023 2:06PM ; [facility] Results Includes: Results discussed during this encounter Vitamin B12 ORCHARD IHL Ordered by Gloria anand PA-C on 05/20/[address] [place] [address], [phone] Collected: 05/20/2023 Report ed: 05/20/2023 15:04 tel: Last Documented On 4 3:03PM ; [facility] Reviewed by Gloria escalante PA-C on [...] Note: The above testing was completed at [facility] [place] [place] [facility], [address] [place] [id number] (CLIA#[id number]) PH#: VITAMIN [id number] 509 pg/mL ([phone]) None Last Documented On 4 12:37PM ; [facility] FOLATE ORCHARD IHL Ordered by Gloria anand PA-C on 05/20/[address] [place] [address], [phone] Collected: 05/20/2023 Report ed: 05/20/2023 15:13 tel: Last Documented On 4 3:03PM ; [facility] Reviewed by Gloria escalante PA-C on [...] Note: The above testing was completed at [facility] [place] [place] [facility], [address] [place] [id number] (CLIA#[id number]) PH#: FOLATE 8.1 ng/mL (>3.0) None Last Documented On 4 12:37PM ; [facility] SED RATE, iSED ORCHARD IHL Ordered by Gloria anand PA-C on 05/20/[address] [place] [address], [phone] Collected: 05/20/2023 Report ed: 05/20/2023 14:00 tel: Last Documented On 4 3:03PM ; [facility] Reviewed by Gloria escalante PA-C on [...] Note: The above testing was completed at [facility] [place] [place] [facility], [address] [place] [id number] (CLIA#[id number]) PH#: SED_RATE 2 mm/hr (0-19) None Last Documented On 4 12:37PM ; [facility] Hepatitis A Ab, IgM ORCHARD IHL Ordered by Gloria anand PA-C on 05/20/[address] [place] [address], [id number] Collected: 05/20/2023 Report ed: 05/20/2023 15:46 tel:[phone] Last Documented On 4 3:03PM ; [facility] Reviewed by Gloria escalante PA-C on [...] Note: The above testing was completed at [facility] [place] [place] [facility], [address] [place] [address] (CLIA#[id number]) PH#: Hep A Ab, IgM Non-Reactive COI (Non-Reactive) None Last Documented On 4 12:37PM ; [facility] Hepatitis A Ab, Total ORCHARD IHL Ordered by Gloria anand PA-C on 05/20/[address] [place] [address], [phone] Collected: 05/20/2023 Report ed: 05/20/2023 15:46 tel:[phone] Last Documented On 4 3:03PM ; [facility] Reviewed by Gloria escalante PA-C on [...] Note: The above testing was completed at [facility] [place] [place] [facility], [id number] [place] [id number] (CLIA#[id number]) PH#: Hep A Ab, Total Non-Reactive COI (Non-Reactive) None Last Documented On 4 12:37PM ; [facility] Hepatitis B Surface Ag ORCHARD IHL Ordered by Gloria anand PA-C on 05/20/[address] [place] [address], [phone] Collected: 05/20/2023 Report ed: 05/20/2023 15:46 tel:[phone] Last Documented On 4 3:03PM ; [facility] Reviewed by Gloria escalante PA-C on [...] Note: The above testing was completed at [facility] [place] [place] [facility], [id number] [place] [address] (CLIA#[id number]) PH#: Hep B Surface Ag Non-Reactive COI (Non-Reactive) None Last Documented On 4 12:37PM ; [facility] Hepatitis B Core Ab, Tot ORCHARD IHL Ordered by Gloria anand PA-C on 05/20/[address] [place] [address] [place], [address] Collected: 05/20/2023 Report ed: 05/20/2023 15:46 tel:[phone] Last Documented On 4 3:03PM ; [facility] Reviewed by Gloria escalante PA-C on [...] Note: The above testing was completed at [facility] [place] [place] [facility], [address] [place] [address] (CLIA#[id number]) PH#: Hep B Core Ab, Total Non-Reactive COI (Non-Reactive) None Last Documented On 4 12:37PM ; [facility] Hepatitis B Core Ab, IgM ORCHARD IHL Ordered by Gloria anand PA-C on 05/20/[address] [place] [address], [address] Collected: 05/20/2023 Report ed: 05/20/2023 15:46 tel:[phone] Last Documented On 4 3:03PM ; [facility] Reviewed by Gloria escalante PA-C on [...] Note: The above testing was completed at [facility] [place] [place] [facility], [id number] [place] [address] (CLIA#[id number]) PH#: Hep B Core Ab, IgM Non-Reactive COI (Non-Reactive) None Last Documented On 4 12:37PM ; [facility] COMPLETE BLOOD COUNT ORCHARD IHL Ordered by Gloria anand PA-C on 05/20/[address] [place] [address], [address] Collected: 05/20/2023 Report ed: 05/20/2023 14:12 tel:[phone] Last Documented On 4 3:03PM ; [facility] Reviewed by Gloria escalanet PA-C on 06/16/2023; All test results are final unless otherwise noted. Review Note Provider Name Date reviewed today at OV Gloria Morris PA-C 07/2023 *The doctor has reviewed the labs and will discuss at your next appointment 05/27/23 Melanie Martin PA-C 05/27/2023 pt was notifies and sta beto she would let him know 05/27/2023 Note: The above testing was completed at [facility] [place] [place] [facility], [address] [place] [address] (CLIA#[id number]) PH#: BASO # 0.0 3/UL (0.0-0.2) None Last Documented On 4 12:37PM ; [facility] BASO% 0.4 % None Last Documented On 4 12:37PM ; [facility] EOS # 0.4 3/UL (0.0-0.7) None Last Documented On 4 12:37PM ; [facility] EOS% 5.5 % None Last Documented On 4 12:37PM ; [facility] HCT 46.2 % (42.0-52.0) None Last Documented On 4 12:37PM ; [facility] HGB 14.8 g/dL (14.0-18.0) None Last Documented On 4 12:37PM ; [facility] LYMPH# 2.1 3/UL (0.9-4.8) None Last Documented On 4 12:37PM ; [facility] LYMPH % 30.1 % None Last Documented On 4 12:37PM ; [facility] MCH 30.0 PG (27.0-31.0) None Last Documented On 4 12:37PM ; [facility] MCHC 32.0 g/dL (32.0-37.0) None Last Documented On 4 12:37PM ; [facility] MCV 93.7 fL (80.0-94.0) None Last Documented On 4 12:37PM ; [facility] MONO# 0.6 3/UL (0.0-1.1) None Last Documented On 4 12:37PM ; [facility] MONO% 8.2 % None Last Documented On 4 12:37PM ; [facility] NEUT # 4.0 3/UL (2.2-8.1) None Last Documented On 4 12:37PM ; [facility] NEUT % 55.5 % None Last Documented On 4 12:37PM ; [facility] PLT 246 3/UL (130-400) None Last Documented On 4 12:37PM ; [facility] RBC 4.93 6/UL (4.20-5.60) None Last Documented On 4 12:37PM ; [facility] RDW 12.6 % (11.0-15.0) None Last Documented On 4 12:37PM ; [facility] WBC 7.1 3/UL (4.3-10.8) None Last Documented On 4 12:37PM ; [facility] Vitamin D, 25-Hydroxy ORCHARD IHL Ordered by Gloria anand PA-C on 05/20/2023 [address] [facility], [place], [address] Collected: 05/20/2023 Report ed: 05/20/2023 15:05 tel: Last Documented On 4 3:03PM ; [facility] Reviewed by Gloria escalante PA-C on [...] Note: The above testing was completed at [facility] [place] [place] [facility], [address] [place] [address] (CLIA#[id number]) PH#: VIT D 25-HYDROXY 32.60 ng/mL (30.00-100.00) None Last Documented On 4 12:37PM ; [facility] Thyroxine (T4) Free, Direct, S ORCHARD I HL Ordered by Gloria anand PA-C on 05/20/[address] [place] [address], [address] Collected: 05/20/2023 Report ed: 05/20/2023 15:13 tel: Last Documented On 4 3:03PM ; [facility] Reviewed by Gloria escalante PA-C on [...] Note: The above testing was completed at [facility] [place] [place] [facility], [address] [place] [address] (CLIA#[id number]) PH#: FT4 (FREE THYROXINE) 1.00 ng/dL (0.80-1.80) None Last Documented On 4 12:37PM ; [facility] TSH ORCHARD IHL Ordered by Gloria anand PA-C on 05/20/[address] [place] [address], [address] Collected: 05/20/2023 Report ed: 05/20/2023 15:19 tel:[phone] Last Documented On 4 3:03PM ; [facility] Reviewed by Gloria escalante PA-C on [...] Note: The above testing was completed at [facility] [place] [place] [facility], [address] [place] [address] (CLIA#[id number]) PH#: TSH 2.96 mIU/mL (0.27-4.20) None Last Documented On 4 12:37PM ; [facility] Hemoglobin A1c ORCHARD IHL Ordered by Gloria anand PA-C on 05/20/[address] [place] [address], [address] Collected: 05/20/2023 Report ed: 05/20/2023 15:05 tel:[phone] Last Documented On 4 3:03PM ; [facility] Reviewed by Gloria escalante PA-C on [...] Note: The above testing was completed at [facility] [place] [place] [facility], [address] [place] [address] (CLIA#[id number]) PH#: HEMOGLOBIN A1C 6.8 % (0.0-6.4) H (High) Last Documented On 4 12:37PM ; [facility] Note: < 5.7 Decreased risk of diabetes 5 .7-6.0 Increased risk of diabetes 6.1-6.4 High risk of diabetes > or = 6.5 Consistant with diabetes Basic Metabolic Panel (8) ORCHARD L Ordered by Gloria anand PA-C on 05/20/[address] [place] [address], [address] Collected: 05/20/2023 Report ed: 05/20/2023 18:35 tel: Last Documented On 4 3:03PM ; [facility] Reviewed by Gloria escalante PA-C on [...] Note: The above testing was completed at [facility] [place] [place] [facility], [address] [place] [address] (CLIA#[id number]) PH#: BUN/CREAT RATIO 16.2 CALC (6.0-25.0) None Last Documented On 4 12:37PM ; [facility] BUN 18.3 mg/dL (5.0-25.0) None Last Documented On 4 12:37PM ; [facility] CALCIUM 9.1 mg/dL (8.5-10.5) None Last Documented On 4 12:37PM ; [facility] CHLORIDE 104 mEq/L (95-108) None Last Documented On 4 12:37PM ; [facility] CARBON DIOXIDE 26 mEq/L (21-32) None Last Documented On 4 12:37PM ; [facility] CREATININE 1.13 mg/dL (0.50-1.50) None Last Documented On 4 12:37PM ; [facility] eGFR 66 mL/min/1.73m2 (>=60) None Last Documented On 4 12:37PM ; [facility] Note: The eGFR is based on the CKD-EPI 2 021 equation. To calculate the new eGFR from a previous Creatinine result, goto https://www.kidney.org/professionals/kdoqi/gfr_calculatorThe National Kidney Foundation recommends using the CKD-EPI Creatinine Equation (2020) to estimate GFR. More informationregarding this recommendation may be found:https://www.ajkd.org/article/P6836-63345629163-0/fulltext GLUCOSE 118 mg/dL (70-99) H (High) Last Documented On 4 12:37PM ; [facility] POTASSIUM 5.0 mEq/L (3.5-5.3) None Last Documented On 4 12:37PM ; [facility] SODIUM 141 mEq/L (135-146) None Last Documented On 4 12:37PM ; [facility] Albumin/Creat Ratio Urine ORCHARD IHL Ordered by Gloria anand PA-C on 05/20/2023 [address] [facility], [place], [address] Collected: 05/20/2023 Report ed: 05/20/2023 16:34 tel: Last Documented On 4 3:03PM ; [facility] Reviewed by Gloria escalante PA-C on [...] Note: The above testing was completed at [facility] [place] [place] [facility], [address] [place] [address] (CLIA#[id number]) PH#: ALB/CREAT RATIO 4.3 ug/mg (0.0-30.0) None Last Documented On 4 12:37PM ; [facility] ALBUMIN, URINE 6.9 mg/L (0.0-200.0) None Last Documented On 4 12:37PM ; [facility] CREATININE, URINE 159.5 mg/dl (20.0-300.0) None Last Documented On 4 12:37PM ; [facility] Hepatic Function Panel (7) ORCHARD IHL Ordered by Gloria anand PA-C on 05/20/[address] [place] [address], [address] Collected: 05/20/2023 Report ed: 05/20/2023 19:16 tel: Last Documented On 4 3:03PM ; [facility] Reviewed by Gloria escalante PA-C on [...] Note: The above testing was completed at [facility] [place] [place] [facility], [address] [place] [address] (CLIA#[id number]) PH#: A/G RATIO 1.7 CALC (1.1-2.3) None Last Documented On 4 12:37PM ; [facility] ALBUMIN 4.4 g/dL (3.5-5.2) None Last Documented On 4 12:37PM ; [facility] ALK. PHOSPHATASE 105 U/L (35-118) None Last Documented On 4 12:37PM ; [facility] ALT (SGPT) 21 U/L (0-41) None Last Documented On 4 12:37PM ; [facility] AST (SGOT) 16 U/L (0-40) None Last Documented On 4 12:37PM ; [facility] DIRECT BILIRUBN 0.10 mg/dL (0.00-0.40) None Last Documented On 4 12:37PM ; [facility] GLOBULIN 2.5 g/dL (1.9-4.2) None Last Documented On 4 12:37PM ; [facility] INDIRECT BILIRUBIN 0.21 mg/dL (0.10-0.80) None Last Documented On 4 12:37PM ; [facility] TOTAL BILIRUBIN 0.31 mg/dL (0.00-1.20) None Last Documented On 4 12:37PM ; [facility] TOTAL PROTEIN 6.9 g/dL (6.0-8.5) None Last Documented On 4 12:37PM ; [facility] Antinuclear Antibodies, IFA ORCHARD IHL Ordered by Gloria anand PA-C on 05/20/2023 [address] [place], [address] Collected: 05/20/2023 Report ed: 05/23/2023 10:01 tel: Last Documented On 4 3:03PM ; [facility] Reviewed by Gloria escalante PA-C on 06/16/2023; All test results are final unless otherwise noted. Review Note Provider Name Date reviewed today at OV Gloria Morris PA-C 07/2023 pt was notifies and sta beto she would let him know 05/27/2023 Note: [facility] [id number] performed at: [place], [facility], [address] [place], [address], [employer] Operator:DR. Betsy HuffmanQuest Collection Date/Time: [id number] Results Received Date/Time: [id number] Reported Date/Time: [id number]: NO NEETA SCREEN, IFA NEGATIVE (NEGATIVE) None Last Documented On 12:37PM ; [facility] Note: NEETA IFA is a first [...] clinicallysuspected inflammatory myopathies.AC-0: NegativeInternational Consensus on NEETA Patterns(https://doi.org/10.1515/crpl-7897-9793)Fo r additional information, please refer tohttp://education.AB Tasty.MegaHoot/faq/HXD764 (This link is being provided for informational/educational purposes only.) RPR ORCHARD IHL Ordered by Gloria anand PA-C on 05/20/2023 [address] [place], [place], [address] Collected: 05/20/2023 Report ed: 05/23/2023 10:01 tel: Last Documented On 4 3:03PM ; [facility] Reviewed by Gloria escalante PA-C on 06/16/2023; All test results are final unless otherwise noted. Review Note Provider Name Date reviewed today at Gloria Morris PA-C 07/2023 pt was notifies and sta beto she would let him know 05/27/2023 Note: [facility] [id number] performed at: [facility], [address] [place], [place], , [employer] Operator: Jose Ga Collection Date/Time: [id number] Results Received Date/Time: [id number] Reported Date/Time: [id number]: NO RPR (MONITOR) W/REFL TITER NON-REACTIVE (NON-REACTIVE) None Last Documented On 4 12:37PM ; [facility] Protein Electro.,S ORCHARD IHL Ordered by Gloria anand PA-C on 05/20/2023 [address] [place], [address] Collected: 05/20/2023 Report ed: 05/23/2023 10:01 tel: Last Documented On 4 3:03PM ; [facility] Reviewed by Gloria escalante PA-C on 06/16/2023; All test results are final unless otherwise noted. Review Note Provider Name Date reviewed today at Gloria Morris PA-C 07/2023 pt was notifies and sta beto she would let him know 05/27/2023 Note: [facility] [id number] performed at: [facility], [address], [place], [place], , [employer] Operator: Jose Ga Collection Date/Time: [id number] Results Received Date/Time: [id number] Reported Date/Time: [id number]: NO PROTEIN, TOTAL 7.0 g/dL (6.1-8.1) None Last Documented On 4 12:37PM ; [facility] ALBUMIN 3.9 g/dL (3.8-4.8) None Last Documented On 4 12:37PM ; [facility] ALPHA 1 GLOBULIN 0.3 g/dL (0.2-0.3) None Last Documented On 4 12:37PM ; [facility] ALPHA 2 GLOBULIN 0.7 g/dL (0.5-0.9) None Last Documented On 4 12:37PM ; [facility] GAMMA GLOBULIN 1.1 g/dL (0.8-1.7) None Last Documented On 4 12:37PM ; [facility] INTERPRETATION SEE NOTE None Last Documented On 4 12:37PM ; [facility] Note: Possible monoclonal protein (M-pro tein) present.Suggest serum immunofixation. ABNORMAL PROTEIN BAND 1 0.2 g/dL (NONE DETECTED) H (High) Last Documented On 4 12:37PM ; [facility] BETA 1 GLOBULIN 0.5 g/dL (0.4-0.6) None Last Documented On 4 12:37PM ; [facility] BETA 2 GLOBULIN 0.5 g/dL (0.2-0.5) None Last Documented On 4 12:37PM ; [facility] Protein [employer], Random Urine ORCHARD IH L Ordered by Gloria anand PA-C on 05/20/2023 [address] [place], [address] Collected: 05/20/2023 Report ed: 05/27/2023 09:40 tel: Last Documented On 4 3:03PM ; [facility] Reviewed by Gloria escalante PA-C on 06/16/2023; All test results are final unless otherwise noted. Review Note Provider Name Date reviewed today at OV Gloira Morris PA-C 07/2023 Note: [facility] [id number] performed at: , [facility], [facility] [place], [address], [employer] Operator: Jose Sheridan MDQuest Collection Date/Time: [id number] Results Received Date/Time: [id number] Reported Date/Time: [id number]: NO CREATININE, RANDOM URINE 148 mg/dL (20-320) None Last Documented On 4 12:37PM ; [facility] PROTEIN/CREATININE RATIO 74 mg/g_creat (25-148) None Last Documented On 4 12:37PM ; [facility] PROTEIN, TOTAL, RANDOM UR 11 mg/dL (5-25) None Last Documented On 4 12:37PM ; [facility] INTERPRETATION SEE NOTE None Last Documented On 4 12:37PM ; [facility] Note: Normal Pattern ALBUMIN 41 % None Last Documented On 4 12:37PM ; [facility] STUJK-[id number] 4 % None Last Documented On 4 12:37PM ; [facility] AERYO-6-MPIYAHPDB 14 % None Last Documented On 4 12:37PM ; [facility] BETA GLOBULINS 15 % None Last Documented On 4 12:37PM ; [facility] GAMMA GLOBULINS 26 % None Last Documented On 4 12:37PM ; [facility] PROTEIN/CREATININE RATIO 0.074 mg/mg_creat (0.025-0.148) None Last Documented On 4 12:37PM ; [facility] History of Present Illness Includes: History [...] the above, with plans to relocate to [place], scheduled to depart on the 01 of [...] 05/13/2023 Last Documented On 4 1:56PM ; [facility] Lives with spouse 05/28/2022 Last Documented On 4 1:56PM ; [facility] Outdoor activites GOLF 11/17/2019 Last Documented On 4 1:56PM ; [facility] No use of tanning lights 11/17/2019 Last Documented On 4 1:56PM ; [facility] Using sunscreen 11/17/2019 Last Documented On 4 1:56PM ; [facility] What SPF do you wear 50 11/17/2019 Last Documented On 4 1:56PM ; [facility] Retired from work 04/28/2019 Last Documented On 4 1:56PM ; [facility] 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 Last Documented On 4 1:56PM ; [facility] Sun exposure: Burn sometimes, henriquez easily 04/02/2018 Last Documented On 4 1:56PM ; [facility] Past sun exposure: Moderate 03/19/2018 Last Documented On 4 1:56PM ; [facility] Present sun exposure: Moderate 8 Last Documented On 4 1:56PM ; [facility] Alcohol use: 2 drinks or less per day Last Documented On 4 1:56PM ; [facility] Former smoker 11/19/2017 Last Documented On 4 1:56PM ; [facility] Never used drugs 11/19/2017 Last Documented On 4 1:56PM ; [facility] AUDIT-C questionnaire was 0 06/20/2017 Last Documented On 4 1:56PM ; [facility] Alcohol use 2-3 drinks nightly 7 Last Documented On 4 1:56PM ; [facility] No living will 06/07/2016 Last Documented On 4 1:56PM ; [facility] Smoking status : Former smoker Quit in 1 982 [id number] 1PPD 06/07/2016 Last Documented On 4 1:56PM ; [facility] Pets in the home 06/29/2015 Last Documented On 4 1:56PM ; [facility] Alcohol Social drinker 06/29/2015 Last Documented On 4 1:56PM ; [facility] Caffeine use 1 cup daily 06/29/2015 Last Documented On 4 1:56PM ; [facility] Currently 06/29/2015 Last Documented On 4 1:56PM ; [facility] Occupation was unknown 06/29/2015 Last Documented On 4 1:56PM ; [facility] Not a current smoker 12/27/2013 Last Documented On 4 1:56PM ; [facility] Not using drugs 12/27/2013 Last Documented On 4 1:56PM ; [facility] A previous history of smoking 09/04/2012 Last Documented On 4 1:56PM ; [facility] Alcohol use 09/04/2012 Last Documented On 4 1:56PM ; [facility] Cigarette smoking for an unknown number of pack-years 08/14/2012 Last Documented On 4 1:56PM ; [facility] Not smoking 08/14/2012 Last Documented On 4 1:56PM ; [facility] Procedures and Surgical History Includes: Procedures from this encounter Procedures Code Diagnosis Performing Provider Service Location Service Date Complex e/m visit add on [id number] Primary osteoarthritis, unspecified site Gloria Morris PA-C [facility] 06/16/2023 Last Documented On 4 3:27PM ; [facility] Most recent diastolic < 80 mm Hg 3078F Overweight, Body mass index [BMI] 28.0-28.9, adult Gloria Morris PA-C [facility] 06/16/2023 Last Documented On 4 4:48AM ; [facility] Most recent systolic < 130 mm Hg 3074F Overweight, Body mass index [BMI] 28.0-28.9, adult Gloria Morris PA-C [facility] 06/16/2023 Last Documented On 4 4:50AM ; [facility] Body mass index docd 3008F Overweight, Body mass index [BMI] 28.0-28.9, adult Gloria Morris PA-C [facility] 06/16/2023 Last Documented On 4 4:51AM ; [facility] diastolic blood pressure < 80 mmHg 3078F Last Documented On 4 2:07PM ; [facility] systolic blood pressure < 130 mmHg 3074F Last Documented On 4 2:07PM ; [facility] body mass index documented 3008F Last Documented On 4 2:07PM ; [facility] Surgical History Last Updated History of heart surgery Heart ablation - 09/201506/07/2016 Last Documented On 4 1:56PM ; [facility] No history of surgery 06/29/2015 Last Documented On 4 1:56PM ; [facility] Medical History Includes: Medical History addressed during this encounter Description Last Updated History of chronic obstructive pulmonary disease 07/10/2021 Last Documented On 4 1:56PM ; [facility] History of systemic hypertension 022 Last Documented On 4 1:56PM ; [facility] Basal cell carcinoma of the skin 020 Last Documented On 4 1:56PM ; [facility] Hearing loss 11/17/2019 Last Documented On 4 1:56PM ; [facility] History of arthritis 11/17/2019 Last Documented On 4 1:56PM ; [facility] History of coronary artery disease 11/16 Last Documented On 4 1:56PM ; [facility] LT elbow calcium deposit removal - 1975 ~Lorenzo cataract removal - 201506/07/2016 Last Documented On 4 1:56PM ; [facility] Advance healthcare directive in chart Last Documented On 4 1:56PM ; [facility] 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 09/04/2012 Last Documented On 4 1:56PM ; [facility] History of chronic reflux esophagitis Last Documented On 4 1:56PM ; [facility] History of colonic diverticulosis 2012 Last Documented On 4 1:56PM ; [facility] History of hyperlipidemia 09/04/2012 Last Documented On 4 1:56PM ; [facility] Stomach problems 09/04/2012 Last Documented On 4 1:56PM ; [facility] No history of diabetes mellitus 08/15/19 Last Documented On 4 1:56PM ; [facility] No history of skin cancer 08/14/2012 Last Documented On 4 1:56PM ; [facility] Family History Includes: Family History addressed during this encounter Description Last Updated Paternal history of essential hypertensi on 05/30/2021 Last Documented On 4 1:56PM ; [facility] Paternal history of family history of is chemic heart disease 12/01/2020 Last Documented On 4 1:56PM ; [facility] Maternal history of arthritis 03/19/2018 Last Documented On 4 1:56PM ; [facility] Maternal history of stroke syndrome TIA 06/07/2016 Last Documented On 4 1:56PM ; [facility] Paternal history of paternal history CHF 06/07/2016 Last Documented On 4 1:56PM ; [facility] 1 daughter(s) living 06/07/2016 Last Documented On 4 1:56PM ; [facility] 1 son(s) living 06/07/2016 Last Documented On 4 1:56PM ; [facility] Brother(s) living x1 06/07/2016 Last Documented On 4 1:56PM ; [facility] Father at age 64 06/07/2016 Last Documented On 4 1:56PM ; [facility] Mother at age 86 06/07/2016 Last Documented On 4 1:56PM ; [facility] Sister(s) living x2 06/07/2016 Last Documented On 4 1:56PM ; [facility] Family history of allergies Self 016 Last Documented On 4 1:56PM ; [facility] Family history of cancer Mother 06/29/19 16 Last Documented On 4 1:56PM ; [facility] Family history of hearing loss Self 06/12 Last Documented On 4 1:56PM ; [facility] No family history of asthma 06/29/2015 Last Documented On 4 1:56PM ; [facility] No family history of diabetes mellitus 0 06/29/2015 Last Documented On 4 1:56PM ; [facility] No family history of migraine headache 0 06/29/2015 Last Documented On 4 1:56PM ; [facility] No family history of tuberculosis 2015 Last Documented On 4 1:56PM ; [facility] Maternal history of family history of ca ncer Breast 11/29/2013 Last Documented On 4 1:56PM ; [facility] Family history of a history of cancer Last Documented On 4 1:56PM ; [facility] Family history of arthritis 09/04/2012 Last Documented On 4 1:56PM ; [facility] Family history of cardiac problems 09/04 Last Documented On 4 1:56PM ; [facility] No family history of breast cancer 08/14 Last Documented On 4 1:56PM ; [facility] No family history of colon cancer 2012 Last Documented On 4 1:56PM ; [facility] No family history of coronary artery dis ease 08/14/2012 Last Documented On 4 1:56PM ; [facility] No family history of prostate cancer 06/2012 Last Documented On 4 1:56PM ; [facility] No family history of skin cancer 013 Last Documented On 4 1:56PM ; [facility] Review of Systems Includes: Review of [...] Active Last Documented On 06/16/2023 2:04PM ; [facility] Note: facial lip swelling listaprill Allergy swollen 07/13/2020 Active Last Documented On 4 2:04PM ; [facility] Encounters Encounter Provider Location Date Check-In Time Check-Out Time Diagnosis [facility] Medicare Follow Up Visit Gloria Morris PA-C [facility] Ad Flanagan 06/16/19 24 2:15PM 2:35PM [...] m Dates 1 - Medicare Part B [id number] Nick Farnsworth Oliva Self 2 - Common Wealth Serrvice/ Unicare [id number] Nick Farnsworth Oliva Self 07/13 - Unknown Advance Directives Includes: Current Advance Directives Directive Pat Aware Third Constitution Party Effective Date Reviewed Sta t[facility] Healthcare Power of Sharepoint Net Developer/Healthcare Surrogate Yes 08/08/2017 Current and Verified Clinical Notes Includes: Clinical Notes from this encounter * Progress note Date Encounter Last Documented by 06/16/2023 [facility] Medicare Follow Up Visit Sarah benítez documented on 06/16/2023; 3:00 PM, Gloria Morris PA-C; [facility] Active Problems & Conditions - Asthma [...] the above, with plans to relocate to [place], scheduled to depart on the 01 of [...] Smoking status: Former smoker Quit in 1981 [id number]. Alcohol: Alcohol Social drinker and alcohol [...] atrial fibrillation - Atherosclerotic heart disease of [place] coronary artery without angina pectoris - Chronic combined systolic (congestive) and diastolic (congestive) heart failure - Essential (primary) hypertension - Atherosclerosis of aorta - Atherosclerotic heart disease of [place] coronary artery with other forms of angina [...] previous stroke and/or peripheral neuropathy from Agent [place] exposure. - Possible orthostatic hypotension or vertigo. - Complicated case - Plan: Refer the patient to a neurologist for further evaluation, would consider possible tilt table test to assess for orthostatic hypotension. Additionally, refer the patient to [facility] for vestibular rehabilitation to address balance issues Labwork WNL - Advise patient to f/u with new PCP at the [facility] after reolcating to [facility] for further evluation - Post-traumatic stress [...] mg/dL INTERPRETATION SEE NOTE ALBUMIN 41 % [id number]-5-[id number] 4 % [id number]-7-[id number] 14 % BETA GLOBULINS 15 % GAMMA [...] mmHg. Advance Directives - Healthcare Power of Sharepoint Net Developer/Healthcare Surrogate Care Team - Narendra Campos MD - Family Practice - Smiley Garcia, ASBESTOS TEXTILE SUPERVISOR - Nurse Practitioner - Dane Rasmussen MD - [facility] Surgery - Maryan Landeros MD - Surgery - [facility] DO - Pulmonary Disease - Bora Gar MD - Vascular Surgery - Sylvester Morgan MD - Neurology - Gloria Morris PA-C - Physician Compliance And Control Analyst - Colton Guardado MD - Cardiology - Martinez Kohler MD - Gastroenterology - [facility] - Hematology & Oncology - Deni Bernabe MD - Orthopaedic Surgery of the Spine - Merle Villanueva MD - Pulmonary Disease - Christ Moulton III MD - Orthopaedic Surgery
--- OUTSIDE RECORDS SUMMARY | 2024-06-08 17:47 | XMS_ITS | Encounter Summary ---
Author Name [facility] Organization [facility] Address [address] [place] [address] Care Team Providers Care Sweatband Maker Name Role Phone ERNESTO ARBOLEDA Primary Care [...] PART A August 12, 2008 PART A [id number] [phone] Dawson YOUNGER PATIENT MEDICARE (WNR) MEDICARE (M) PART B August 12, 2008 PART B [id number] [phone] Dawson YOUNGER PATIENT MEDICARE (WNR) MEDICARE (M) PART A August 12, 2008 PART A [id number] [facility] Dawson YOUNGER PATIENT MEDICARE (WNR) MEDICARE (M) PART B August 12, 2008 PART B [id number] [facility] Dawson YOUNGER PATIENT MEDICARE (WNR) MEDICARE (M) PART B August 12, 2008 PART B [id number] [phone] Dawson YOUNGER PATIENT MEDICARE (WNR) MEDICARE (M) PART A August 12, 2008 PART A [id number] Dawson YOUNGER PATIENT MEDICARE (WNR) MEDICARE (M) PART B August 12, 2008 PART B [id number] [facility] Dawson YOUNGER PATIENT MEDICARE (WNR) MEDICARE (M) PART A August 12, 2008 PART A [id number] [facility] [phone] Dawson YOUNGER PATIENT MEDICARE (WNR) MEDICARE (M) PART A August 12, 2008 PART A [id number] [facility] Dawson YOUNGER PATIENT MEDICARE (WNR) MEDICARE (M) PART B August 12, 2008 PART B [id number] [facility] Dawson YOUNGER PATIENT MEDICARE PART D (WNR) PRESCRIPT ION PART D Apr 14, 2015 PART D [id number] [facility] [phone] Dawson YOUNGER PATIENT UNICARE PREFERRED PROVIDER ORGANIZAT ION (PPO) [facility] IN[facility]M N August 12, 2008 [id number] [phone] Dawson YOUNGER PATIENT UNICARE MEDICARE SUPPLEMEN FARHAD WELLP OINT August 12, 2008 [id number] [phone] Dawson YOUNGER PATIENT UNICARE-G. I.C. MEDICAL EXPENSE (OPT/PROF ) [facility] IN[facility] N August 12, 2008 [id number] Dawson YOUNGER PATIENT WELLPOINT MEDICAL EXPENSE (OPT/PROF ) [facility] INDEM N August 12, 2008 [id number] Dawson YOUNGER PATIENT Selected Encounter This section includes the information on record at NH for the Encounter. Date/Time Encounter Type Encounter Description Reason Provider Source May 26, 2024 03:00 PM TELEHEALTH FACILITY [facility] ICD-10-CM F43.10 Post-traumatic stress disorder, unspecified LILIANE IYER Javad Encounter Template Text not used by NH Assessments - Encounter Diagnoses This section includes the primary and secondary diagnoses documented for the Encounter. Date/Time Primary/Secondary Diagnosis Diagnosis Name Provider Source Jun 01, 2024 04:01 AM PRIMARY Post-traumatic stress disorder, unspecified JOSE F IYER SONYA Jun 01, 2024 04:01 AM SECONDARY Unspecified dementia, moderate, with anxiety JOSE F IYER NORWOOD Plan of Treatment: Future Appointments (+ 6 months) and Future Tests (+/- 45 days) The Plan of Treatment section includes [facility] care [facility]. This section includes future appointments [...] 22, 2024 01:00 PM AMBULATORY - MEDICINE [facility] Jun 22, 2024 03:00 PM AMBULATORY - NONE [facility] August 25, 2024 11:30 AM AMBULATORY - [facility]RY [facility] August 25, 2024 11:31 AM [facility] - [facility] Sep 14, 2024 02:30 PM [facility] Advance Directives: All historical and [...] August 25, 2023 ADVANCE DIRECTIVE MICHELLE LEVINE [facility] Encounter Notes: All associated encounter notes This section contains the clinical notes associated to the Encounter. Date/Time Encounter Note(s) Provider Source May 26, 2024 04:00 PM TELEHEALTH NOTE: LOCAL TITLE: TELEHEALTH NOTE STANDARD TITLE: TELEHEALTH NOTE DATE OF NOTE: MAY 26, 2024@16:00 ENTRY DATE: JUN 01, 2024@03:53:52 AUTHOR: MITCHEL IYER EXP COSIGNER: URGENCY: STATUS: COMPLETED SHANICE YOUNGER checked-in with this analytical lab technician at: [facility] CVT [facility] PSYTR PAT. identified with 2 identifiers: [X] Full Name [ ] Date of [X] Full SSN [ ] [facility] ID Card Patient consented to participate in the scheduled Clinical Video Telehealth (CVT) appointment: YES. Appointment Date/Time: May@15:00 DR. LIU HERNANDEZ MD. PSYCHIATRIST Conducted this appointment session from [facility] via Clinical Video Telehealth. DX per Telehealth Provider: F43.10 Post-traumatic stress disorder, unspecified(P). F03.B4 Unspecified dementia, moderate, with anxiety(S). Additional Information: 4 Months Follow Up Per Provider /gurwinder/ MITCHEL IYER TELEHEALTH CLINICAL TECHNIAN (TCT) Signed: 06/01/2024 04:03 MITCHEL IYER NORWOOD
--- OUTSIDE RECORDS SUMMARY | 2024-06-08 17:48 | XMS_ITS | Clinical Summary ---
Author Organization [facility] Address [address] [place] [address] Phone Care Team Providers Care Wellness Program Administrator Name Role Phone & Sports Medicine, [facility] Unavailable [phone] Kenney PARK MD, Christ Hernandez Unavailable [phone] Leti CUELLO, Maryan Rose Unavailable [phone] Junaid CUELLO, Bora Unavailable [phone] Andres CUELLO, Narendra Primary Care Provider [phone] Florecita CUELLO, Deni Unavailable [phone] Gloria Morris PA-C Unavailable [phone] Edita CUELLO, Martinez Unavailable [phone] Cathy CUELLO, Sylvester Penaloza Unavailable [phone] Smiley Calderon Unavailable [phone] Valery CUELLO, Dane Unavailable [phone] Colton Guardado MD Unavailable [phone] [facility] DO Unavailable [phone] Kay CUELLO, Merle Unavailable [phone] Reason for Visit and Chief Complaint CT [...] [facility] Note: Unchanged Plan of Treatment Care Programs Check if Patient is Eligible for [facility] Services Last Documented On 8 12:04AM ; [facility] Assessments Includes: Assessments from this encounter No Assessments Recorded Medical Equipment - Implanted Devices Includes: Current Devices No Medical Equipment Recorded Medications Includes: Medications discussed during this encounter and other current Medications Current Medications (continue as prescribed) Treleradha Ellipta 100-62.5-25 MCG/ACT Inhalation Aerosol Powder Breath Activated 05/13/2023 Provider: Shubham Patel APRN Diagnosis: Chronic obstruct aan m pulmonary disease, unspecified 1 puff qd [...] Aerosol Solution 07/19/2022 Provider: Frannie Guidry DNP SOFTWARE ENGINEER WEB APPLICATIONS-BC Diagnosis: Shortness of tristin ath 2 puffs [...] Active Last Documented On 4 2:04PM ; [facility] Encounters Encounter Provider Location Date Check-In Time Check-Out Time Diagnosis CT Thorax w/o Contrast [facility] 4 1:15PM 1:16PM Insurance Includes: Active Insurance Policies Plan Name Member ID Group # Subscriber Relationship Effect ana m Dates 1 - Medicare Part B [id number] Nick Oliva Self 2 - Common Wealth Serrvice/ Unicare [id number] Nick Oliva Self 07/13 - Unknown Advance Directives Includes: Current Advance Directives Directive Pat Aware Third Alliance Party Effective Date Reviewed [facility] Healthcare Power of Portfolio Assistant/Healthcare Surrogate Yes 08/08/2017 Current and Verified Clinical Notes Includes: Clinical Notes from this encounter No Clinical Notes Recorded
== END 2024-06-08 14:57 | disposition home or self-care (01) ==
PROVIDERS: PCP Hospitalist; Visit Provider Nurse Practitioner Family
DX: G47.33 Obstructive sleep apnea (adult) (pediatric) (principal); G47.34 Idiopathic sleep related nonobstructive alveolar hypoventilation; R91.8 Other nonspecific abnormal finding of lung field; R40.0 Somnolence
CPT/HCPCS: 94618; 99214

== ENCOUNTER → 2024-06-08 14:10 | Outpatient (BNVA) | payer OTHER, SELFPAY | PROVIDERS: PCP Hospitalist; Visit Provider Nurse Practitioner Family | DX: J41.0 Simple chronic bronchitis (principal); J96.10 Chronic respiratory failure, unspecified whether with hypoxia or hypercapnia; G47.33 Obstructive sleep apnea (adult) (pediatric); G47.34 Idiopathic sleep related nonobstructive alveolar hypoventilation; R91.8 Other nonspecific abnormal finding of lung field; R40.0 Somnolence; Z99.89 Dependence on other enabling machines and devices; Z99.81 Dependence on supplemental oxygen; Z87.891 Personal history of nicotine dependence | CPT/HCPCS: 94618; 99212 ==

== ENCOUNTER 2024-07-19 10:27 | Outpatient (AMB) | payer MEDICARE, OTHER, SELFPAY ==
--- NOTE | 2024-07-19 10:32 | A.OFFPC_ITS ---
Vital Signs 07/19/24 10:40 Height 51 ft Weight 187 lb 8 oz BMI 0.4 BP 126/60 Blood Pressure Location Rt brachial Position Sitting Respiration 14 Pulse 71 Pulse Source Pulse Oximeter Pulse Oximetry (%) 95 Oxygen Delivery Method Room Air Intake Visit Reasons: 30 min complex follow up Intake Note: Nick presents in the office today for a folow up. Trailhead Maintenance Worker Required: No Allergies No Known Allergies Allergy (Verified 07/19/24 10:34) Tobacco use date assessed: 07/19/24 Fall risk assessment: 1 Fall in past year Last assessed Fall Risk: 07/19/24 Dental Screening Dental Screen Date: 07/19/24 Did you have a dental visit in the last 12 months?: Yes Did you have a dental problem in the last 6 months where you did not have access to dental care?: No Was dental information given to patient?: No HPI HPI Comments History of Present Illness Details This is an 78-year-old male with an extensive past medical history significant for CKD stage 3, agent orange exposure, glaucoma, COPD with chronic respiratory failure requiring supplemental oxygen, depression with anxiety, hyperlipidemia, TIA, memory loss, paroxysmal atrial fibrillation, obstructive sleep apnea and periodic limb movement presenting for follow up. The patient is accompanied by his , Rosie Oliva. [facility] His continues to manage his medications. He was having difficulty doing this resulting in irregular blood pressure and falls. He was also more confused. Upon investigating his med she found that he was taking all 3 primidone dosages at 1 time during the day. He was also either taking 1 metoprolol pill a day or taking 2 at the same time. There were other discrepancies between a how the medications were prescribed, and how he was taking them. Dizzy spells have since resolved. He had 1 fall a couple of weeks ago that did not result in any significant injury, head or neck injury or loss of consciousness. He has feet got caught up when he was turning to walk somewhere. He has a cane, but he does not like to use it. He completed home physical therapy. [facility] neurology consult is in September. Denies recent memory changes. Denies chest pain, shortness of breath or leg swelling. Cardiovascular-diagnosed in 2016 with paroxysmal atrial fibrillation. He had 2 ablations. The 2nd was successful. He has a Cardiology consult in August. Denies palpitations or chest pain. He had a TIA in ?2017. He is on atorvastatin, Pradaxa, diltiazem, Zetia, furosemide (as needed for edema), metoprolol (now extended release 50 mg tablet). Depression with anxiety-followed by Dr. Peñaloza. Tremor-taking primidone. Patient is up-to-date with eye exams. He sees audiology for hearing loss. COPD/AMY-followed by [facility] pulmonology. Patient having sleep study done. Using supplemental oxygen at night. 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 ROS: Constitutional: No unexplained weight loss, fever, chills or night sweats or fatigue Respiratory: No increased shortness of breath or worsening cough Cardiovascular: No chest pain, chest pressure or chest discomfort. No palpitations . Gastrointestinal: No anorexia, nausea, vomiting or diarrhea. No abdominal pain or blood in stool. Neurologic: No seizures, tremor, numbness, headache. No dizziness, no syncope. Hematologic/Lymphatics: No bleeding or swollen glands Musculoskeletal: Pain due to rib fracture improved Psychiatric: No SI/HI. Physical exam: Constitutional: Alert, in no distress. Head: Normocephalic. Eyes: Pupils are equal, round and reactive to light. Extraocular muscles intact. Neck: Supple, Full range of motion. No lymphadenopathy. Respiratory: Clear to auscultation. Cardiovascular: S1 S2 regular. No murmurs. Neurologic: Moves extremities spontaneously. No focal deficits. Extremities: Warm and well perfused. No lower extremity edema. Psychiatric: Normal mood and affect [facility] Medical History (Updated 05/14/24 @ 16:55 by BETINA Salvador) Hypertension Falls frequently Closed rib fracture Cognitive decline CKD stage 3a, GFR 45-59 ml/min Glaucoma GERD (gastroesophageal reflux disease) Agent orange exposure Bilateral hearing loss COPD (chronic obstructive pulmonary disease) Periodic limb movement Nocturnal hypoxemia Depression with anxiety TIA (transient ischemic attack) Neoplasm of skin Skin rash Memory loss Imbalance A-fib Hypercholesteremia Family History Mother Breast cancer Cardiovascular disease Social History (Updated 07/19/24 @ 10:37 by Katelin Lovelace MA) Housing: House Alcohol intake: current Patient Tobacco Use Status: Former Tobacco user Cigarette Packs Per Day: 1 Years Smoked: 40 e-Cigarette/Vaping Use: Never Used service: Yes Current occupational status: retired Current occupational exposures/hazards: No Cognitive needs: No Hearing needs: Yes (Hearing loss) Vision needs: No Questionnaire PHQ-9 Over the last 2 weeks, how often have you been bothered by any of the following problems? 1. Little interest or pleasure in doing things: not at all 2. Feeling down, depressed, or hopeless: not at all 3. Trouble falling or staying asleep, or sleeping too much: not at all 4. Feeling tired or having little energy: nearly every day 5. Poor appetite or overeating: not at all 6. Feeling bad about yourself - or that you are a failure or have let yourself or your family down: not at all 7. Trouble concentrating on things, such as reading the newspaper or watching television: not at all 9. Thoughts that you would be better off or of hurting yourself in some way: several days Depression Screening Interpretation: Positive Depression Screening Follow-up: In treatment Depression Screening Done: Yes 02113 - PHQ-9 Billing: Patient declined-do not bill Source: Developed by Drs. Sherif Thomson, Tomasa Baker, Ishmael Alas and colleagues, with an educational aftab from [employer]. Thrive Questionnaire Date Thrive assessed: 07/19/24 I am a: Patient What is your living situation today?: I have a steady place to live Within the past 12 months, did the food you bought not last and you didn't have the money to get more?: Never true Within the past 12 months, did you worry whether your food would run out before you got money to buy more?: Never true Do you have trouble paying for medicines?: No Do you have trouble getting transportation to medical appointments?: No Do you have trouble paying your heating and electricity bill?: No Do you have trouble taking care of your child, family member or friend?: No Do you have trouble with day-to-day activities such as bathing, preparing meals, shopping, managing finances, etc.?: No Are you currently unemployed and looking for a job?: No Are you interested in more education?: No Please select the resources that you would like help with: None Currently or been in a relationship where the following occur: No concerns reported THRIVE Score: 0 FAYE-7 AMB Questionnaire FAYE-7 Date FAYE - 7 assessed: 05/13/24 Source: Developed by Drs. Sherif Thomson, Tomasa Baker, Ishmael Alas and colleagues, with an educational aftab from [employer]. Physical exam (Primary Care) Vital Signs: Last Vital Signs Pulse 71 07/19/24 10:40 Resp 14 07/19/24 10:40 BP 126/60 07/19/24 10:40 Pulse Ox 95 07/19/24 10:40 Oxygen Delivery Method Room Air 07/19/24 10:40 BMI result Body Mass Index 0.4 Tobacco/Smoking Status: Tobacco use Status Tobacco use date assessed 07/19/24 07/19/24 10:37 Patient Tobacco Use Status Former Tobacco user 07/19/24 10:37 e-Cigarette/Vaping Use Never Used 07/19/24 10:37 Depression Screening Interpretation: Positive Depression Screening Follow-up: In treatment Thrive Assessment: Date of Thrive Assessment Date Thrive assessed 07/19/24 07/19/24 10:43 Currently or been in a relationship where the following occur: No concerns reported Coding Level of Care Code Est Pt Level 4 (35228) Complex EM visit Add On G2211 Diagnoses Cognitive decline R41.89 Depression with anxiety F41.8 Paroxysmal atrial fibrillation I48.0 Atrial fibrillation type: paroxysmal Simple chronic bronchitis J41.0 COPD type: chronic bronchitis Chronic bronchitis type: simple Obstructive sleep apnea G47.33 Falls frequently R29.6 Hypertension I10 Assessment & Plan Assessment & Plan (1) Cognitive decline: Code(s): R41.89 - Other symptoms and signs involving cognitive functions and awareness Category: Medical (2) Depression with anxiety: Code(s): F41.8 - Other specified anxiety disorders Category: Medical (3) A-fib: Code(s): I48.91 - Unspecified atrial fibrillation Category: Medical Qualifiers: Atrial fibrillation type: paroxysmal Qualified Code(s): I48.0 - Paroxysmal atrial fibrillation (4) COPD (chronic obstructive pulmonary disease): Code(s): J44.9 - Chronic obstructive pulmonary disease, unspecified Category: Medical Qualifiers: COPD type: chronic bronchitis Chronic bronchitis type: simple Qualified Code(s): J41.0 - Simple chronic bronchitis (5) Obstructive sleep apnea: Code(s): G47.33 - Obstructive sleep apnea (adult) (pediatric) Category: Medical (6) Falls frequently: Code(s): R29.6 - Repeated falls Category: Medical (7) Hypertension: Code(s): I10 - Essential (primary) hypertension Category: Medical Plan In summary this is an 78-year-old male with improved mentation and resolution of dizziness since compliance with home oxygen and his medication regimen which is now being managed by his . [facility] did reach out to his , but she feels comfortable helping with medication management at this time. He will keep upcoming appointments with Neurology and Cardiology. He completed physical therapy for strengthening and gait coordination, and I have encouraged him to use a walker or cane which they have to prevent further falls. Follow up in 3 months with labs done prior to next visit. Orders: Orders Complete Blood Count no Diff Today E78.00 - Pure hypercholesterolemia, unspecified, I10 - Essential (primary) hypertension, N18.31 - Chronic kidney disease, stage 3a Comprehensive Met. Panel Today E78.00 - Pure hypercholesterolemia, unspecified, I10 - Essential (primary) hypertension, N18.31 - Chronic kidney disease, stage 3a Hemoglobin A1c Today E78.00 - Pure hypercholesterolemia, unspecified, I10 - Essential (primary) hypertension, N18.31 - Chronic kidney disease, stage 3a, R41.89 - Other symptoms and signs involving cognitive functions and awareness Lipid Panel Today E78.00 - Pure hypercholesterolemia, unspecified, E78.5 - Hyperlipidemia, unspecified, I10 - Essential (primary) hypertension, N18.31 - Chronic kidney disease, stage 3a TSH reflex Free T4 Today E78.00 - Pure hypercholesterolemia, unspecified, I10 - Essential (primary) hypertension, N18.31 - Chronic kidney disease, stage 3a
[2024-07-19 10:40] VITALS: BP 126/60; PULSE 71; RESP 14; O2SAT 95
--- OUTSIDE RECORDS SUMMARY | 2024-07-19 12:15 | XMS_ITS | Clinical Summary ---
Author Organization [facility] Address [address] [place] [address] Care Team Providers Care Cradle Slide Maker Name Role Phone Betzaida Roberson Primary Care Provider [phone] Allergies No known active allergies Medications albuterol (PROAIR HFA,VENTOLIN HFA) 90 mcg inhaler Inhale by mouth. 08/07/2023 Active brimonidine (ALPHAGAN) 0.2% ophthalmic solution Instill into affected eye(s). 01/01/2024 Active dabigatran (PRADAXA) 150 mg capsule Take 150 mg by mouth. 08/13/2023 Active ezetimibe (ZETIA) 10 mg tablet Take 10 mg by mouth. 08/07/2023 Active dilTIAZem CD (CARDIZEM CD) 240 mg 24 hr capsule [facility] Capsule(s) By Mouth Daily 07/08/2023 Active fenofibrate (TRICOR) 48 mg tablet Take 48 mg by mouth. 02/26/2024 Active Trelegy Ellipta 100-62.5-25 mcg blister with device [facility]ARTSI Puff(s) By Mouth Daily 07/07/2023 Active metoprolol succinate XL (TOPROL XL) 50 mg tablet Take 50 mg by mouth. 08/08/2023 Active metoprolol tartrate (LOPRESSOR) 50 mg tablet Take 25 mg by mouth. 06/30/2023 Active Paxlovid 150-100 mg tablet therapy pack SMARTSI Tablet(s) By Mouth Twice Daily 01/29/2024 Active sertraline (ZOLOFT) 100 mg tablet Take 100 mg by mouth. 08/08/2023 Active QUEtiapine (SEROquel) 100 mg tablet Take 100 mg by mouth. 05/26/2024 Active Active Problems No known active problems Encounters Date Type Department Care Team Description 06/21/2024 Results Follow-Up [facility] 4th [address] [place] [address], [place] [address] Ski Binding Fitter And Repairer: Zeny Sawyer MD 06/14/2024 3:00 PM EST Office Visit [facility] 4th Floor [address] [facility], [place] [address] Ski Binding Fitter And Repairer: Magnolia Saenz MD PhD Dermatitis (Primary Dx) from Last 3 Months Social History Tobacco Use Types Packs/Day Years Used Date Smoking Tobacco: Never Assessed Sex and Gender Information Value Date Recorded Sex Assigned at Male 12/26/2023 3:51 PM EDT Legal Sex Male 4:57 PM EDT Gender Identity Male 12/26/2023 3:51 PM EDT Sexual Orientation Not on file Plan of Treatment Health Maintenance Due Date Last Done Comments Medicare AWV 08/21/1946 Alcohol/Substance Use Screening 04/14/2024 Depression Screening and Follow-Up 04/14/2024 Health Care Proxy Review 04/14/2024 Social Drivers of Health Annual Screening 04/14/2024 COVID-19 Vaccine ( season) 2024 02/26/2024, 03/02/2021, 02/20/2021, Additional history exists DTaP,Tdap,and Td Vaccines (3 - Td or Tdap) 08/08/2026 08/08/2016, 12/14/2014, 12/22/2008 Pneumococcal Vaccine: 50+ Years Completed 07/04/2014, 01/10/2009 Zoster Vaccines Completed 12/13/2020, 09/14, 12/28/2014 RSV Vaccine (60+ years old and patients) Completed 03/25/2023 Influenza Vaccine Completed 02/26/2024, , 02/27/2022, Additional history exists Hepatitis B Vaccines Aged Out No long er eligible based on patient's age to complete this topic Procedures * Due to [place] state law, this organization might not be sharing negative HIV tests. Procedure Name Priority Date/Time Associated Diagnosis Comments TISSUE EXAM Routine 06/14/2024 3:41 PM EST Dermatitis from Last 3 Months Results * Due to [place] [employer] law, this organization might not be sharing negative HIV tests. * Tissue Exam (06/14/2024 3:41 PM EST) Final Diagnosis Skin, Left Inner Distal Thigh, Punch Biopsy: -Granuloma annulare. Comment: Additional levels are examined. A PAS stain is negative for fungal forms. 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 Gross Description 1. Skin, Left inner distal thigh The specimen is received in formalin labeled left inner distal thigh and consists of a 0.4 cm henriquez skin punch excised to a depth of 0.4 cm which is inked, bisected and entirely submitted in cassette 1A. [facility] MANUAL 06/16/2024 1:14 PM EST [facility] Gross Description User Grossing complete by Sherif Garcia on 06/15/2024 10:55 AM [facility] MANUAL 06/16/2024 1:14 PM EST [facility] Embedded Images [facility] MANUAL 06/16/2024 1:14 PM EST [facility] Disclaimer Some of these tests were developed and their performance characteristics determined by the Immunoperoxidase/ Histology Laboratory of [facility]. They have not been cleared or approved by the U.S. Food and Drug Administration. The FDA has determined that such clearance or approval is not necessary. This test is used for clinical purposes. It should not be regarded as investigational or for research. This laboratory is certified under the Clinical Laboratory Improvement Amendments of 1988 (CLIA-88) as qualified to perform high complexity clinical laboratory testing. [facility] MANUAL 06/16/2024 1:14 PM EST [facility] Resulting Agency Case was signed out at [facility], Department of Pathology, [employer] 3 CLIA [id number] [facility] MANUAL 06/16/2024 1:14 PM EST [facility] Report Header Surgical Pathology Report ? Case: [id number] ? Authorizing Provider: ??Magnolia Cassidy MD PhD ? Collected: ? 06/14/2024 1541 ? Ordering Location: ? [facility] ? Received: ?06/14/2024 1722 ? [place] ? Dermatology Clinic 4th ? Floor ? Pathologist: ? Talat Buckner MD PhD ? Specimen: ?Skin, Left inner distal thigh ? 06/16/2024 1:14 PM EST [facility] Skin Specimen from skin / Unknown 06/14/2024 3:41 PM EST 06/14/2024 5:22 PM EST us Magnolia Cassidy MD PhD LAB PATHOLOGY/CYTOLOGY ORDER GAMALIEL Final Result [facility] [address] [place] [id number], from Last 3 Months Insurance MEDICARE [facility] Care Teams Cradle Slide Maker Relationship Specialty Start Date End Date KarolBetzaida [address] [place] [address] PCP - General Family Medicine 12/26/23
--- OUTSIDE RECORDS SUMMARY | 2024-07-19 12:15 | XMS_ITS | Referral Summary ---
Author Organization [facility] Address [address] [place] [address] Care Team Providers Care Ceramic Coater Name Role Phone Betzaida Roberson Primary Care Provider [phone] Encounters Date Type Department Care Team Description 06/21/2024 Results Follow-Up [facility]ology Clinic [address], [place] [phone] Event Specialist Food Demonstrator: Zeny Sawyer MD 06/14/2024 3:00 PM EST Office Visit [facility] [address], [place] [phone] Event Specialist Food Demonstrator: Magnolia Saenz MD PhD Dermatitis (Primary Dx) from Last 3 Months Allergies No known active allergies Medications albuterol [...] Active Active Problems No known active problems Social History Tobacco Use Types Packs/Day Years Used Date Smoking Tobacco: Never Assessed Sex and Gender Information Value Date Recorded Sex Assigned at Male 12/26/2023 3:51 PM EDT Legal Sex Male 4:57 PM EDT Gender Identity Male 12/26/2023 3:51 PM EDT Sexual Orientation Not on file Plan of Treatment Not on file Procedures * Due to [place] [employer] law, this organization might not be sharing negative HIV tests. Procedure Name Priority Date/Time Associated Diagnosis Comments TISSUE EXAM Routine 06/14/2024 3:41 PM EST Dermatitis from Last 3 Months Results * Due to [place] [employer] law, this organization might not be sharing negative HIV tests. * Tissue Exam (06/14/2024 3:41 PM EST) Final Diagnosis Skin, Left Inner Distal Thigh, Punch Biopsy: -Granuloma annulare. Comment: Additional levels are examined. A PAS stain is negative for fungal forms. 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 Skin, Left inner distal thigh The specimen is received in formalin labeled left inner distal thigh and consists of a 0.4 cm henriquez skin punch excised to a depth of 0.4 cm which is inked, bisected and entirely submitted in cassette 1A. [facility] MANUAL 06/16/2024 1:14 PM EST [facility] Gross Description User Grossing complete by Sherif Garcia on 06/15/2024 10:55 AM [facility] MANUAL 06/16/2024 1:14 PM EST [facility] Embedded Images [facility] MANUAL 06/16/2024 1:14 PM EST [facility] Disclaimer Some of these tests were developed and their performance characteristics determined by the Immunoperoxidase/ Histology Laboratory of [facility]. They have not been cleared or approved [...] to perform high complexity clinical laboratory testing. [facility] MANUAL 06/16/2024 1:14 PM EST [facility] Resulting Agency Case was signed out at [facility], Department of Pathology, Biotech 3 CLIA [id number] [facility] MANUAL 06/16/2024 1:14 PM EST [facility] Report Header Surgical Pathology Report ? Case: [id number] ? Authorizing Provider: ??Magnolia Cassidy MD PhD ? Collected: ? 06/14/2024 1541 ? Ordering Location: ? [facility] ? Received: ?06/14/2024 1722 ? [place] ? Dermatology Clinic 4th ? Floor ? Pathologist: ? Talat Buckner MD PhD ? Specimen: ?Skin, Left inner distal thigh ? 06/16/2024 1:14 PM EST [facility] Skin Specimen from skin / Unknown 06/14/2024 3:41 PM EST 06/14/2024 5:22 PM EST us Magnolia Cassidy MD PhD LAB PATHOLOGY/CYTOLOGY ORDER GAMALIEL Final Result [facility] [address] [place] [phone], from Last 3 Months Insurance MEDICARE [facility] Care Teams Ceramic Coater Relationship Specialty Start Date End Date Betzaida Roberson [address] [place] [address] PCP - General Family Medicine 12/26/23
== END 2024-07-19 11:13 | disposition home or self-care (01) ==
LOC: HO.HMCFM 10:28
PROVIDERS: PCP Internal Medicine; Visit Provider Physician Assistant Medical
DX: R41.89 Other symptoms and signs involving cognitive functions and awareness (principal); F41.8 Other specified anxiety disorders; I48.0 Paroxysmal atrial fibrillation; J41.0 Simple chronic bronchitis; G47.33 Obstructive sleep apnea (adult) (pediatric); R29.6 Repeated falls; I10 Essential (primary) hypertension

== ENCOUNTER → 2024-07-19 10:27 | Outpatient (BNVA) | payer MEDICARE, OTHER, SELFPAY | PROVIDERS: PCP Internal Medicine; Visit Provider Physician Assistant Medical | DX: J41.0 Simple chronic bronchitis (principal); J96.10 Chronic respiratory failure, unspecified whether with hypoxia or hypercapnia; I12.9 Hypertensive chronic kidney disease with stage 1 through stage 4 chronic kidney disease, or unspecified chronic kidney disease; N18.30 Chronic kidney disease, stage 3 unspecified; I48.0 Paroxysmal atrial fibrillation; G47.33 Obstructive sleep apnea (adult) (pediatric); R41.89 Other symptoms and signs involving cognitive functions and awareness; F41.8 Other specified anxiety disorders; R29.6 Repeated falls; E78.00 Pure hypercholesterolemia, unspecified; Z99.81 Dependence on supplemental oxygen; Z86.73 Personal history of transient ischemic attack (TIA), and cerebral infarction without residual deficits | CPT/HCPCS: 99212 ==

== ENCOUNTER 2024-09-01 14:48 | Outpatient (AMB) | payer OTHER, SELFPAY ==
--- NOTE | 2024-09-01 14:51 | A.OFFVIS_ITS ---
Vital Signs 09/01/24 14:52 Height 5 ft 10 in Weight 188 lb 6 oz BMI 27.0 BP 102/68 Blood Pressure Location Rt brachial Position Sitting Pulse 79 Pulse Source Pulse Oximeter Pulse Oximetry (%) 98 Oxygen Delivery Method Room Air Intake Visit Reasons: COPD Allergies No Known Allergies Allergy (Verified 09/01/24 14:54) HPI HPI COPD: Details: Nick is a pleasant 79 year old male, former smoker with 30 pack year history quit 30+ years ago, with underlying asthma, COPD, chronic respiratory failure on 2 L supplemental oxygen with exertion and NOC, CAD, Atrial fibrillation s/p ablation x 2 on pradaxa, AMY on CPAP and GERD. He is accompanied by his . He reports good control of respiratory symptoms on Trelegy 200 mcg, using albuterol MDI infrequently. He denies any respiratory symptoms today. He checks oxygen saturation frequently, never below 96%. At the last visit, 6MWT performed and patient no longer requiring supplemental oxygen with exertion. Since last visit he has been evaluated by a [facility] sleep medicine having repeat in lab sleep study which revealed severe sleep apnea without significant nocturnal hypoxemia. He will be receiving a new CPAP therapy pressures and machine. He denies any visits to urgent care hospitalizations related to respiratory distress since last visit. [facility] Medical History (Updated 09/01/24 @ 20:11 by Kaitlynn Epps NP) Hypertension Falls frequently Closed rib fracture Cognitive decline CKD stage 3a, GFR 45-59 ml/min Glaucoma GERD (gastroesophageal reflux disease) Agent orange exposure Bilateral hearing loss COPD (chronic obstructive pulmonary disease) Periodic limb movement Nocturnal hypoxemia Depression with anxiety TIA (transient ischemic attack) Neoplasm of skin Skin rash Memory loss Imbalance A-fib Hypercholesteremia Family History Mother Breast cancer Cardiovascular disease Social History Housing: House Alcohol intake: current Patient Tobacco Use Status: Former Tobacco user Cigarette Packs Per Day: 1 Years Smoked: 40 e-Cigarette/Vaping Use: Never Used service: Yes Current occupational status: retired Current occupational exposures/hazards: No Cognitive needs: No Hearing needs: Yes (Hearing loss) Vision needs: No Review of Systems Const Denies chills, Denies excessive sweating, Denies fever(s), Denies headache(s) and Denies night sweats Eyes Denies dry eyes, Denies irritation and Denies itchy eyes ENT Reports Normal hearing present, Denies headache(s), Denies nasal congestion, Denies nasal discharge, Denies post nasal drip and Denies sore throat Card Denies chest pain, Denies chest pain at rest, Denies chest pain with activity, Denies claudication, Denies leg edema, Denies orthopnea and Denies paroxysmal nocturnal dyspnea Resp Denies chest congestion, Denies excessive phlegm production, Denies pain on inspiration, Denies pain with cough and Denies stridor Musc Denies myalgias Neuro Reports Normal hearing present and Denies headache(s) Endo Denies excessive sweating Sedrick/Lymph Denies lymphadenopathy Aller/Immun Denies itchy eyes and Denies seasonal rhinorrhea Physical Exam Vital Signs: Last Vital Signs Pulse 79 09/01/24 14:52 BP 102/68 09/01/24 14:52 Pulse Ox 98 09/01/24 14:52 Oxygen Delivery Method Room Air 09/01/24 14:52 BMI result Body Mass Index 27.0 Const General: cooperative, healthy appearing, comfortable, no acute distress, well developed and alert Nutritional Appearance: obese Orientation/consciousness: patient oriented x3 Limitations: no limitations HEENT Head: Yes normal to inspection, Yes normocephalic and Yes atraumatic Ears: hearing grossly normal bilaterally and external ears normal Eyes General: appearance normal, both eyes and all related structures Eyelids: Yes eyelids normal Sclerae: sclerae normal EOM: EOMs intact bilaterally Neck Neck: Yes normal visual inspection and Yes no lymphadenopathy Lymphatic: no lymphadenopathy noted Chest Chest palpation & inspection: normal inspection of the chest Resp Effort & Inspection: normal respiratory effort, able to speak in complete sentences, no audible wheezes, no cough, no stridor, not tachypneic, no tripod positioning and no use of accessory muscles Auscultation: clear to auscultation bilaterally Cardio Jugular venous distension: no JVD Rate: regular rate Rhythm: regular rhythm Skin Other: warm, dry General skin exam: no rashes or lesions noted Neuro General: patient oriented x3 Cranial nerves: Yes Normal hearing present Cognition (Neuro): normal cognition Gait exam (Neuro): Normal gait present Extrem General: Yes normal to inspection, Yes capillary refill normal, Yes no clubbing, cyanosis or edema and Yes no pedal edema Psych Appearance: grossly normal and well kempt Speech and movement: Normal speech and movement present and Clear speech present Affect: normal affect Attitude: cooperative Thought process: Normal thought process present Thought content: Normal thought content present Insight: Good insight present (Psych) Judgement: Good judgement present (Psych) Results Reviewed Results Reviewed: [address] [address] [address] Scan Report Signed Patient: Nick Oliva MR#: [id number] : 1945 Acct:[id number] Age/Sex: 78 / M ADM Date: 01/09/24 Loc: HO.CT Attending Dr: Kaitlynn Epps NP Ordering Physician: Kaitlynn Epps NP Date of Service: 01/09/24 Procedure(s): CT chest wo IV con Accession Number(s): [id number] cc: Steven Dobson PA-C; Kaitlynn Epps NP~ EXAMINATION: CT CHEST WITHOUT CONTRAST CLINICAL INFORMATION: COPD. COMPARISON: None available. TECHNIQUE: Multidetector volumetric CT imaging of the chest was done. Axial MIP volume rendering provided. Sagittal and coronal reformatted images were obtained. This CT examination was performed using dose optimization techniques as appropriate, variously including the following: *Automated exposure control *Adjustment of mA and/or kV according to patient size (this includes techniques or standardized protocols for targeted exams where dose is matched to indication/reason for exam; i.e. extremities or head) *Use of iterative reconstruction technique DLP: 160.00 mGy-cm FINDINGS: GUM MACHINE FILLER: The lungs are symmetrically well-expanded and grossly clear. LUNGS: At the lateral right apex (11:39 and 47), 2 noncalcified 2 mm nodules are seen. Within the anterior segment of the right upper lobe (11:72 and 78), there are 2 noncalcified 2 mm nodules. A benign, calcified granuloma is seen inferiorly within the right upper lobe (11:1). There are a few further scattered minute benign, calcified granulomas. At the anterior left apex (11:27 and 31), 3 mm and 2 mm noncalcified nodules are seen. Within the upper lingula (11:27), a 3 mm noncalcified nodule is seen. Within the superior segment of the left lower lobe (11:77), a 3 mm noncalcified nodule is seen. There are a few scattered tiny punctate benign, calcified right lung granulomas. No mass, infiltrate or groundglass opacity is seen. There are very mild right apical paraseptal and centrilobular emphysematous changes. A small focus of pleural and parenchymal scarring is seen at the posterior right apex. No mass, infiltrate or groundglass opacity is seen. There is mild generalized small airway thickening. The central airways appear patent. MEDIASTINUM: The thyroid is unremarkable. There is no thoracic aortic aneurysm. There are moderate atherosclerotic calcifications of the great vessel origins and thoracic aorta. No mediastinal or hilar lymphadenopathy is seen. CORONARY ARTERY CALCIFICATION: Mild to moderate. PLEURA: There is no pleural effusion. No pleural mass or thickening. AXILLA: No lymphadenopathy. UPPER ABDOMEN: There are scattered low-attenuation hepatic probable cysts or benign hemangiomas, mostly too small to fully characterize with CT. The adrenal glands are unremarkable. OSSEOUS STRUCTURES: There is multi-level lower cervical and thoracic spondylosis. No acute or aggressive osseous finding is seen. CT/CT chest wo IV con IMPRESSION: 1. There are small bilateral noncalcified, nonspecific and calcified lung nodules. The largest noncalcified nodules, on the left, measure 3 mm. According to the UPDATED 2017 Fleischner Society recommendations, the advised follow-up imaging for solid nodules < 6 mm is: LOW RISK PATIENT: No routine follow-up. HIGH RISK PATIENT: Optional CT at 12 months. 2. No mass, infiltrate or groundglass opacity is seen. 3. There are very mild paraseptal and centrilobular emphysematous changes. 4. There is mild generalized small airway thickening, which can be associated with acute bronchiolitis or reactive airways disease. 5. No thoracic lymphadenopathy or pleural effusion is seen. 6. There is mild to moderate coronary artery atherosclerotic calcification. 7. There is multi-level cervicothoracic spondylosis. No acute or aggressive osseous finding is noted. 8. There are low-attenuation hepatic probable cysts or benign hemangiomas, too small to fully characterize with CT. If of continued clinical concern (i.e., history of hepatocellular disease or known malignancy), these could be more fully evaluated with abdominal ultrasound or MRI. Fleischner guidelines were followed. Electronically signed by: Osorio Lepe MD 01/16/2024 12:39 PM EDT RP Dictated By: Osorio Lepe MD Signed By: <Electronically signed by Osorio Lepe MD in [facility]> 01/16/24 1239 DD/ 1349 TD/TT: 01/09/24 1429 Rn Oncology: SANGITA Assessment & Plan Assessment & Plan (1) COPD (chronic obstructive pulmonary disease): Code(s): J44.9 - Chronic obstructive pulmonary disease, unspecified Category: Medical Qualifiers: Chronic bronchitis type: unspecified (2) Obstructive sleep apnea: Code(s): G47.33 - Obstructive sleep apnea (adult) (pediatric) Category: Medical (3) Multiple pulmonary nodules: Code(s): R91.8 - Other nonspecific abnormal finding of lung field Category: Medical Plan At this time, Nick reports excellent control of respiratory symptoms on Trelegy and DuoNeb PRN, advised to continue. He is aware to call if symptoms worsen. Prior chest CT from December 2023 revealed multiple pulmonary nodules, will repeat December 2024 to assess stability of nodules. All questions were answered and patient is in agreement of plan. Will follow up to review results of CT or sooner if needed. Coding Level of Care Code Est Pt Level 4 (34392) Diagnoses COPD (chronic obstructive pulmonary disease) J44.9 Chronic bronchitis type: unspecified Obstructive sleep apnea G47.33 Multiple pulmonary nodules R91.8
[2024-09-01 14:52] VITALS: BP 102/68; PULSE 79; O2SAT 98; BMI 27.0
--- OUTSIDE RECORDS SUMMARY | 2024-09-01 14:55 | XMS_ITS ---
Author Name [facility] [place] Address [address] [place] [address] Care Team Providers Care Television Cabinet Finisher Name Role Phone ERNESTO ARBOLEDA Primary Care [...] PART A August 12, 2008 PART A [id number] Dawson YOUNGER PATIENT MEDICARE (WNR) MEDICARE (M) PART B August 12, 2008 PART B [id number] Dawson YOUNGER PATIENT MEDICARE (WNR) MEDICARE (M) PART A August 12, 2008 PART A [id number] Dawson YOUNGER PATIENT MEDICARE (WNR) MEDICARE (M) PART B August 12, 2008 PART B [id number] [facility] Dawson YOUNGER PATIENT MEDICARE (WNR) MEDICARE (M) PART A August 12, 2008 PART A [id number] [phone] Dawson YOUNGER PATIENT MEDICARE (WNR) MEDICARE (M) PART A August 12, 2008 PART A [id number] [phone] Dawson YOUNGER PATIENT MEDICARE (WNR) MEDICARE (M) PART B August 12, 2008 PART B [id number] Dawson YOUNGER PATIENT MEDICARE (WNR) MEDICARE (M) PART B August 12, 2008 PART B [id number] Dawson YOUNGER PATIENT MEDICARE (WNR) MEDICARE (M) PART A August 12, 2008 PART A [id number] Dawson YOUNGER PATIENT MEDICARE (WNR) MEDICARE (M) PART B August 12, 2008 PART B [id number] Dawson YOUNGER PATIENT MEDICARE PART D (WNR) PRESCRIPT ION PART D Apr 14, 2015 PART D [id number] Dawson YOUNGER PATIENT UNICARE PREFERRED PROVIDER ORGANIZAT ION (PPO) [facility] August 12, 2008 [id number] Dawson YOUNGER PATIENT UNICARE MEDICARE SUPPLEMEN FARHAD WELLP OINT August 12, 2008 [id number] [phone] Dawson YOUNGER PATIENT UNICARE-G. I.C. MEDICAL EXPENSE (OPT/PROF ) [facility] N August 12, 2008 [id number] [id number] [phone] Dawson YOUNGER PATIENT WELLPOINT MEDICAL EXPENSE (OPT/PROF ) [facility] N August 12, 2008 [id number] Dawson YOUNGER PATIENT Selected Encounter This section includes the information on record at [place] for the Encounter. Date/Time Encounter Type Encounter Description Reason Provider Source Oct 02, 2023 11:00 AM INTRAORAL FULL IMAGE SERIES DENTAL ICD-10-CM K03.6 Deposits [accretions] on teeth HOHREITER,VINC ENT IHE Encounter Template Text not used by [place] Assessments - Encounter Diagnoses This section includes the primary and secondary diagnoses documented for the Encounter. Date/Time Primary/Secondary Diagnosis Diagnosis Name Provider Source Oct 02, 2023 11:39 AM PRIMARY Deposits [accretions] on teeth HOHREITER,VINC ENT [place] [facility] [place] [facility] Plan of Treatment: Future Appointments (+ 6 months) and Future Tests (+/- 45 days) The Plan of Treatment section includes future care activities for the patient from all [place] [facility]. This section includes future appointments and [...] 2023 01:00 PM AMBULATORY - REHAB MEDICIN [facility] Nov 13, 2023 10:00 AM AMBULATORY - PSYCHIATRY [place] [facility] [place] [facility] Nov 13, 2023 02:00 PM AMBULATORY - MEDICINE AL [facility] [place] [facility] Nov 14, 2023 01:00 PM AMBULATORY - MEDICINE AL [facility] [place] [facility] Nov 14, 2023 02:00 PM AMBULATORY - MEDICINE AL [facility] [place] [facility] Dec 01, 2023 08:30 AM AMBULATORY - PSYCHIATRY [place] [facility] [place] [facility] Dec 09, 2023 03:00 PM AMBULATORY - PSYCHIATRY [facility] [place] [facility] Dec 25, 2023 11:00 AM AMBULATORY - PSYCHIATRY [facility] [place] [facility] Jan 01, 2024 01:30 PM AMBULATORY - MEDICINE [place] [facility] [place] [facility] Jan 01, 2024 02:00 PM AMBULATORY - MEDICINE AL [facility] [place] [facility] Jan 02, 2024 02:00 PM AMBULATORY - [facility]IN [facility] Jan 21, 2024 02:30 PM [facility] Jan 21, 2024 02:31 PM [facility] Feb 05, 2024 11:00 AM AMBULATORY - [facility]IN [facility] Feb 05, 2024 01:30 PM [facility] Feb 26, 2024 01:00 PM AMBULATORY - MEDICINE [facility] Social History: Smoking Status (Most current) and Tobacco Use (All prior to encounter date) This section includes the most current, and the historical, smoking and tobacco- related health factors from the [place] facility where the Encounter took place. Current Smoking Status This section includes the most current smoking, or tobacco-related health factor, from the [place] facility where the Encounter took place. Date/Time Current Smoking Status Comment Noemy esquivel Aug 06, 2023 01:17 PM [place]-TOBACCO NEVER USED [facility] Advance Directives: All historical and current Section [...] 2023@11:37 ENTRY DATE: OCT 02, 2023@11:39:21 AUTHOR: MARCELINA CARREON COSIGNER: URGENCY: STATUS: COMPLETED Patient Name: SHANICE [...] Active Problems: Long-term current use of anticoagulant ([facility] [id number]) Chronic hypoxemic respiratory failure ([facility] [id number]) COPD - Chronic obstructive pulmonary disease ([facility] [id number]) PAF - Paroxysmal atrial fibrillation ([facility] [id number]) PTSD - Post-traumatic stress disorder ([facility] [id number]) Obstructive sleep apnea ([facility] [id number]) CKD stage 3 ([facility] [id number]) FAYE - Generalised anxiety disorder ([facility] [id number]) Cognitive decline ([facility] [id number]) CAD - Coronary Artery Disease ([facility] [id number]) Exposure to potentially hazardous substance ([facility] [id number]) Glaucoma ([facility] [id number]) Insomnia ([facility] [id number]) Bilateral hearing loss ([facility] [id number]) GERD - Gastro-Esophageal Reflux Disease ([facility] [id number]) Active Medications: Medication reconciliation performed within the [...] No Significant Tooth Mobility Noted Assessment/Plan: Recommending [facility] General Care due to travel hardship No contraindications for planned procedure(s). Planned Procedures: (D7210) SURG REM ERUPTED TOOTH: 4. DX: (). (D0150) COMPREHENSVE ORAL EVALUATION: . DX: (). Reviewed risks/benefits/alternatives associated with the proposed treatment plan. Patient agrees to treatment plan as discussed. Disposition: No follow up appointment indicated Patient provided instructions for obtaining fee dental care subject to [place] authorization of proposed treatment plan. - - - - - - - - - - - - - - - - - - - - - - - - - - - - - - /charlotte CARREON DMD DENTIST Signed: 10/02/2023 11:39 MARCELINA CARREON [facility] Oct 02, 2023 11:33 AM DENTISTRY CONSULT: LOCAL TITLE: CONSULT REPORT/DENTAL STANDARD TITLE: DENTISTRY CONSULT DATE OF NOTE: OCT 02, 2023@11:33 ENTRY DATE: OCT 02, 2023@11:34:13 AUTHOR: MARCELINA CARREON COSIGNER: URGENCY: STATUS: COMPLETED Closing imaging consult /charlotte CARREON DMD DENTIST Signed: 10/02/2023 11:34 MARCELINA CARREON [facility]
--- OUTSIDE RECORDS SUMMARY | 2024-09-01 14:55 | XMS_ITS | Encounter Summary ---
Author Name [facility] [place] Address [address] [place] [address] Care Team Providers Care Character Actress Name Role Phone ERNESTO ARBOLEDA Primary Care [...] PART A August 12, 2008 PART A [id number] [phone] Dawson YOUNGER PATIENT MEDICARE (WNR) MEDICARE (M) PART B August 12, 2008 PART B [id number] Dawson YOUNGER PATIENT MEDICARE (WNR) MEDICARE (M) PART A August 12, 2008 PART A [id number] Dawson YOUNGER PATIENT MEDICARE (WNR) MEDICARE (M) PART A August 12, 2008 PART A [id number] Dawson YOUNGER PATIENT MEDICARE (WNR) MEDICARE (M) PART B August 12, 2008 PART B [id number] Dawson YOUNGER PATIENT MEDICARE (WNR) MEDICARE (M) PART B August 12, 2008 PART B [id number] [facility] [phone] Dawson YOUNGER PATIENT MEDICARE (WNR) MEDICARE (M) PART B August 12, 2008 PART B [id number] Dawson YOUNGER PATIENT MEDICARE (WNR) MEDICARE (M) PART A August 12, 2008 PART A [id number] Dawson YOUNGER PATIENT MEDICARE (WNR) MEDICARE (M) PART A August 12, 2008 PART A [id number] [phone] Dawson YOUNGER PATIENT MEDICARE (WNR) MEDICARE (M) PART B August 12, 2008 PART B [id number] Dawson YOUNGER PATIENT MEDICARE PART D (WNR) PRESCRIPT ION PART D Apr 14, 2015 PART D [id number] Dawson YOUNGER PATIENT UNICARE PREFERRED PROVIDER ORGANIZAT ION (PPO) [facility] August 12, 2008 [id number] Dawson YOUNGER PATIENT UNICARE MEDICARE SUPPLEMEN FARHAD WELLP OINT August 12, 2008 [id number] [id number] 95 Dawson YOUNGER PATIENT UNICARE-G. I.C. MEDICAL EXPENSE (OPT/PROF ) [facility] August 12, 2008 [id number] Dawson YOUNGER PATIENT WELLPOINT MEDICAL EXPENSE (OPT/PROF ) [facility] N August 12, 2008 [id number] Dawson YOUNGER PATIENT Selected Encounter This section includes the information on record at [place] for the Encounter. Date/Time Encounter Type Encounter Description Reason Provider Source Apr 23, 2024 08:41 AM NQHP OL DIG ASSMT&MGMT 5-10 CLINICAL PHARMACY ICD-10-CM Z79.01 MCFP (current) use of anticoagulants STANISLAV YU [facility] Encounter Template Text not used by [place] Assessments - Encounter Diagnoses This section includes the primary and secondary diagnoses documented for the Encounter. Date/Time Primary/Secondary Diagnosis Diagnosis Name Provider Source Apr 23, 2024 04:38 PM PRIMARY MCFP (current) use of anticoagulants STANISLAV YU [place] [facility] [place] [facility] Plan of Treatment: Future Appointments (+ 6 months) and Future Tests (+/- 45 days) The Plan of Treatment section includes future care activities for the patient from all [place] [facility] This section includes future appointments and future [...] 28, 2024 01:00 PM AMBULATORY - PSYCHIATRY [place] [facility] [place] [facility] Apr 28, 2024 01:01 PM AMBULATORY - PSYCHIATRY [place] [facility] [place] [facility] May 11, 2024 01:30 PM AMBULATORY - REHAB MEDICIN E [place] [facility] [place] [facility] May 26, 2024 03:00 PM AMBULATORY - PSYCHIATRY [place] [facility] [place] [facility] May 26, 2024 03:01 PM AMBULATORY - PSYCHIATRY [place] [facility] [place] [facility] Jun 22, 2024 01:00 PM AMBULATORY - MEDICINE [facility] Jun 22, 2024 03:00 PM AMBULATORY - NONE [place] [facility] [place] [facility] Jul 27, 2024 10:30 AM AMBULATORY - MEDICINE [place] [facility] [place] [facility] Sep 14, 2024 02:00 PM AMBULATORY - MEDICINE [place] [facility] [place] [facility] Sep 14, 2024 02:30 PM AMBULATORY - MEDICINE [place] [facility] [place] [facility] Oct 19, 2024 01:00 PM AMBULATORY - MEDICINE [place] [facility] [facility] Social History: Smoking Status (Most current) and [...] 06, 2023 01:17 PM VA-TOBACCO NEVER USED [place] [facility] Advance Directives: All historical and current [...] ADVANCE DIRECTIVE [facility]LE LEVINE [facility] Radiology Reports: +/- 30 days of the encounter Radiology Reports For cases when an order for radiology services may have been completed prior to the date of the Encounter, the report list includes the Radiology Reports that were completed up to 30 days before dateof the Encounter. For cases when an order for radiology services may have been completed after the date of the Encounter, the report list also includes the Radiology Reports that were completed up to30 days after date of the Encounter. The data comes from all [place] treatment facilities. Date/Time Radiology Report Provider Source Apr 22, 2024 10:00 AM OUTSIDE MRI BRAIN (C-) CPT 67728: SHANICE YOUNGER [id number] -[id number] M Ex Date: APR 22, 2024@10:00 Req Phys: ERNESTO ARBOLEDA Loc: SPR PACT 1 COTTRELL BLOWER (Req'g Loc) Img Loc: OUTSIDE GENERAL RADIOLOGY Service: Unknown (Case [id number] COMPLETE) OUTSIDE MRI BRAIN (C-) CPT 09221 (RAD Detailed) CPT:18968 Reason for Study: Dementia. study requested by neurology Clinical History: Report Status: Electronically Filed Date Reported: APR 22, 2024 Report: Community care exam; see CPRS/JLV for outside radiology report/results Impression: Community care exam; see CPRS/JLV for outside radiology report/results Primary Diagnostic Code: VERIFIED BY: / *ELECTRONICALLY FILED* [place] [facility] Encounter Notes: All associated encounter notes This [...] Patient education via phone/letter [ ] Schedule phone/lhxx-pc-ptcz follow up [ ] Lab ordered [ ] Discontinue interacting medication [ ] Discontinue DOAC [ ] Change to alternative DOAC [ ] Change DOAC dose [ ] Notify PCP [ ] Consult cardiology/hematology [ ] Other: Time spent: 5 min /gurwinder/ LILIAM TRUJILLO CPHT Clinical Circus Trainer Signed: 04/23/2024 08:42 Receipt Acknowledged By: 04/23/2024 16:38 /gurwinder/ Stanislav Yu PharmD Clinical Hemodialysis Lab Technician 04/23/2024 ADDENDUM STATUS: COMPLETED Above case reviewed as entered by [facility] Nurse. Agree with current assessment and plan of care for this patient's anticoagulation management as noted. /gurwinder/ Stanislav Yu PharmD Clinical Hemodialysis Lab Technician Signed: 04/23/2024 16:38 LILIAM TRUJILLO CNTRL [facility]
--- OUTSIDE RECORDS SUMMARY | 2024-09-01 14:55 | XMS_ITS | Encounter Summary ---
Author Name [facility] [place] Address [address] [place] [address] Care Team Providers Care Metal Molder Name Role Phone ERNESTO ARBOLEDA Primary Care [...] PART A August 12, 2008 PART A [id number] Dawson YOUNGER PATIENT MEDICARE (WNR) MEDICARE (M) PART B August 12, 2008 PART B [id number] Dawson YOUNGER PATIENT MEDICARE (WNR) MEDICARE (M) PART A August 12, 2008 PART A [id number] Dawson YOUNGER PATIENT MEDICARE (WNR) MEDICARE (M) PART A August 12, 2008 PART A [id number] Dawson YOUNGER PATIENT MEDICARE (WNR) MEDICARE (M) PART B August 12, 2008 PART B [id number] [facility] Dawson YOUNGER PATIENT MEDICARE (WNR) MEDICARE (M) PART B August 12, 2008 PART B [id number] Dawson YOUNGER PATIENT MEDICARE (WNR) MEDICARE (M) PART B August 12, 2008 PART B [id number] [facility] [phone] Dawson YOUNGER PATIENT MEDICARE (WNR) MEDICARE (M) PART A August 12, 2008 PART A [id number] [facility] [phone] Dawson YOUNGER PATIENT MEDICARE (WNR) MEDICARE (M) PART A August 12, 2008 PART A [id number] Dawson YOUNGER PATIENT MEDICARE (WNR) MEDICARE (M) PART B August 12, 2008 PART B [id number] [facility] Dawson YOUNGER PATIENT MEDICARE PART D (WNR) PRESCRIPT ION PART D Apr 14, 2015 PART D [id number] [facility] [phone] Dawson YOUNGER PATIENT UNICARE PREFERRED PROVIDER ORGANIZAT ION (PPO) [facility] August 12, 2008 [id number] Dawson YOUNGER PATIENT UNICARE MEDICARE SUPPLEMEN FARHAD WELLP OINT August 12, 2008 [id number] [phone] Dawson YOUNGER PATIENT UNICARE-G. I.C. MEDICAL EXPENSE (OPT/PROF ) [facility] August 12, 2008 [id number] [phone] Dawson YOUNGER PATIENT WELLPOINT MEDICAL EXPENSE (OPT/PROF ) [facility] August 12, 2008 [id number] Dawson YOUNGER PATIENT Selected Encounter This section includes the information on record at [place] for the Encounter. Date/Time Encounter Type Encounter Description Reason Provider Source Jul 27, 2024 02:06 PM NQHP OL DIG ASSMT&MGMT 5-10 CLINICAL PHARMACY ICD-10-CM Z79.01 halfway (current) use of anticoagulants STANISLAV YU I[facility] Encounter Template Text not used by [place] Assessments - Encounter Diagnoses This section includes the primary and secondary diagnoses documented for the Encounter. Date/Time Primary/Secondary Diagnosis Diagnosis Name Provider Source Jul 27, 2024 02:30 PM PRIMARY halfway (current) use of anticoagulants STANISLAV YU [facility] Plan of Treatment: Future Appointments (+ 6 months) and Future Tests (+/- 45 days) The Plan of Treatment section includes future care activities for the patient from all [place] [facility] This section includes future appointments and future orders which are active, pending or scheduled. Future Appointments This section includes appointments that were scheduled to occur 6 months from the date of the Encounter, up to a maximum of 20 appointments. The data comes from all [facility] Appointment Date/Time Appointment Type Appointme nt Facility Name Sep 14, 2024 02:00 PM AMBULATORY - MEDICINE [facility] Sep 14, 2024 02:30 PM AMBULATORY MEDICINE [facility] Oct 19, 2024 01:00 PM AMBULATORY MEDICINE [facility] Active, Pending, and Scheduled Orders This section includes a listing of several types of active, pending, and scheduled orders, including clinic medications orders, diagnostic test orders, procedure orders and consult orders; where the start date of the order is 45 days before the date of the Encounter or 45 days after the date of theEncounter. The data comes from all [facility] Test Date/Time Test Type Test Details Facility Name Jul 27, 2024 09:57 AM Consult Order BHIP PSYCH IATRIC MEDICATION/SOPC OUTPT Cons Electronic Component Processor's Choice [facility] Social History: Smoking Status (Most current) and Tobacco Use (All prior to encounter date) This section includes the most current, and the historical, smoking and tobacco- related health factors from the [place] facility where the Encounter took place. Current Smoking Status This section includes the most current smoking, or tobacco-related health factor, from the [place] facility where the Encounter took place. Date/Time Current Smoking Status Comment Facil [facility]ierra Aug 06, 2023 01:17 PM [place]-TOBACCO NEVER USED [place] [facility] [place] [facility] Advance Directives: All historical and current Section [...] Source August 25, 2023 ADVANCE DIRECTIVE [facility] Encounter Notes: All associated encounter notes This section contains the clinical notes associated to the Encounter. Date/Time Encounter Note(s) Provider Source Jul 27, 2024 02:06 PM PHARMACY MEDICATION MGT NOTE: LOCAL TITLE: PHARMACY ANTICOAGULATION NOTE STANDARD TITLE: PHARMACY MEDICATION MGT NOTE DATE OF NOTE: JUL 27, 2024@14:06 ENTRY DATE: JUL 27, 2024@14:07 AUTHOR: LILIAM TRUJILLOIGNER: URGENCY: STATUS: COMPLETED ANTICOAGULATION DOAC MONITORING NOTE [...] Specimen Test Name Result Units Ref Range 06/22/2024 13:41 BLOOD HGB 16.1 g/dL 12.8 - 17 PLT: WBC Collection DT Specimen Test Name Result Units Ref Range 06/22/2024 13:41 BLOOD WBC 6.46 10*3/uL 4.50 - 11.00 Liver Function Tests Collection DT Spec AST ALT ALK NIURKA ALBUMIN T BILI T. PROT 06/22/2024 13:41 SERUM 11 12 72 3.8 0.4 7.7 HEIGHT: 70 in [177.8 cm] (08/07/2023 15:14) WEIGHT: 190 lb [86.18 kg] (06/22/2024 13:04) BMI: BMI: 27.3 CREATININE-EGFR 06/22/24 13:41 1.30 11/07/23 13:19 1.05 CRCL IBW: CrCl(est): 46.8 mL/min (Creat:1.30 06/22/24) CRCL ACT: 55.36 mL/min CRCL ADJ: 46.8 mL/min (06/22/24) ASSESSMENT: refill overdue Action required? [ X ] Yes [ ] No Comments: has not filled dabigatran since 10/2023. Will alert PCP and ask that dabigatran be discontinued if is no longer taking or receiving from [facility]. PLAN: [ ] No action required, dismiss flag [ X ] Will intervene: [ ] Patient education via phone/letter [ ] Schedule phone/yjhq-og-jema follow up [ ] Lab ordered [ ] Discontinue interacting medication [ ] Discontinue DOAC [ ] Change to alternative DOAC [ ] Change DOAC dose [ X ] Notify PCP [ ] Consult cardiology/hematology [ ] Other: Time spent: 5 min /gurwinder/ LILIAM TRUJILLO CPHT Clinical Glass Installer Signed: 07/27/2024 14:09 Receipt Acknowledged By: 07/27/2024 14:30 /es/ Stanislav Yu, NeshaD Clinical Creel Operator 08/09/2024 11:18 /es/ ERNESTO ARBOLEDA NP NURSE PRACTITIONER [facility]
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
--- OUTSIDE RECORDS SUMMARY | 2024-09-01 14:56 | XMS_ITS ---
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 Phone ERNESTO ARBOLEDA Primary [...] PART A August 12, 2008 PART A [id number] [phone] Dawson YOUNGER PATIENT MEDICARE (WNR) MEDICARE (M) PART B August 12, 2008 PART B [id number] Dawson YOUNGER PATIENT MEDICARE (WNR) MEDICARE (M) PART A August 12, 2008 PART A [id number] Dawson YOUNGER PATIENT MEDICARE (WNR) MEDICARE (M) PART B August 12, 2008 PART B [id number] [facility] [phone] Dawson YOUNGER PATIENT MEDICARE (WNR) MEDICARE (M) PART A August 12, 2008 PART A [id number] Dawson YOUNGER PATIENT MEDICARE (WNR) MEDICARE (M) PART B August 12, 2008 PART B [id number] [phone] Dawson YOUNGER PATIENT MEDICARE (WNR) MEDICARE (M) PART B August 12, 2008 PART B [id number] Dawson YOUNGER PATIENT MEDICARE (WNR) MEDICARE (M) PART A August 12, 2008 PART A [id number] [phone] Dawson YOUNGER PATIENT MEDICARE (WNR) MEDICARE (M) PART A August 12, 2008 PART A [id number] Dawson YOUNGER PATIENT MEDICARE (WNR) MEDICARE (M) PART B August 12, 2008 PART B [id number] Dawson YOUNGER PATIENT MEDICARE PART D (WNR) PRESCRIPT ION PART D Apr 14, 2015 PART D [id number] [phone] Dawson YOUNGER PATIENT UNICARE PREFERRED PROVIDER ORGANIZAT ION (PPO) [facility] August 12, 2008 [id number] Dawson YOUNGER PATIENT UNICARE MEDICARE SUPPLEMEN FARHAD WELLP OINT August 12, 2008 [id number] [phone] [phone] Dawson YOUNGER PATIENT UNICARE-G. I.C. MEDICAL EXPENSE (OPT/PROF ) [facility] August 12, 2008 [id number] [phone] Dawson YOUNGER PATIENT WELLPOINT MEDICAL EXPENSE (OPT/PROF ) [facility] August 12, 2008 [id number] [phone] Dawson YOUNGER PATIENT Selected Encounter This section includes the information on record at [place] for the Encounter. Date/Time Encounter Type Encounter Description Reason Provider Source May 11, 2024 01:30 PM HEARING AID FITTING/CHECKING AUDIOLOGY ICD-10-CM Z46.1 Encounter for fitting and adjustment of hearing aid DYLLAN GUY [facility] Encounter Template Text not used by [place] Assessments - Encounter Diagnoses This section includes the primary and secondary diagnoses documented for the Encounter. Date/Time Primary/Secondary Diagnosis Diagnosis Name Provider Source May 11, 2024 02:07 PM PRIMARY Encounter for fitting and adjustment of hearing aid DYLLAN GUY [place] [facility] [place] [facility] May 11, 2024 02:07 PM SECONDARY Sensorineural hearing loss, bilateral DYLLAN GUY [place] [facility] [place] [facility] Plan of Treatment: Future Appointments (+ 6 months) and Future Tests (+/- 45 days) The Plan of Treatment section includes future care activities for the patient from all [place] treatmentfacilities. This section includes future appointments and future orders which are active, pending or scheduled. Future Appointments This section includes appointments that were scheduled to occur 6 months from the date of the Encounter, up to a maximum of 20 appointments. The data comes from all [place] treatment facilities. Appointment Date/Time Appointment Type Appointme nt Facility Name May 26, 2024 03:00 PM AMBULATORY - PSYCHIATRY [place] [facility] [place] [facility] May 26, 2024 03:01 PM AMBULATORY - PSYCHIATRY [place] [facility] [place] [facility] Jun 22, 2024 01:00 PM AMBULATORY - MEDICINE [facility] Jun 22, 2024 03:00 PM AMBULATORY - NONE [place] [facility] [place] [facility] Jul 27, 2024 10:30 AM AMBULATORY - MEDICINE [place] [facility] [place] [facility] Sep 14, 2024 02:00 PM AMBULATORY - MEDICINE [place] [facility] [place] [facility] Sep 14, 2024 02:30 PM AMBULATORY - MEDICINE [place] [facility] [place] [facility] Oct 19, 2024 01:00 PM AMBULATORY - MEDICINE [place] [facility] [place] [facility] Social History: Smoking Status (Most current) and Tobacco Use (All prior to encounter date) This section includes the most current, and the historical, smoking and tobacco- related health factors from the [facility] facility where the Encounter took place. Current Smoking Status This section includes the most current smoking, or tobacco-related health factor, from the [place] facility where the Encounter took place. Date/Time Current Smoking Status Comment Facil ity Aug 06, 2023 01:17 PM VA-TOBACCO NEVER USED [place] [facility] [place] [facility] Advance Directives: All historical and current Section Date Range: From patient's date of to the date document was created. This section includes ALL of a patient's completed or amended VA Advance and Rescinded Directives. The entries below indicate that a directive exists for the patient, but an actual copy is not included with this document. The data comes from all [place] facilities. Date Advance Directives Provider Source August 25, 2023 ADVANCE DIRECTIVE MICHELLE LEVINE [facility] Radiology Reports: +/- 30 days [...] the Encounter. The data comes from all [place] treatment facilities. Date/Time Radiology Report Provider Source Apr 22, 2024 10:00 AM OUTSIDE MRI BRAIN (C-) CPT 70896: YOUNGERSHANICE [id number] -[id number] M Exm Date: APR 22, 2024@10:00 Req Phys: ERNESTO ARBOLEDA Loc: [facility] [employer] (Req'g Loc) Img Loc: OUTSIDE GENERAL RADIOLOGY Service: Unknown (Case [id number] COMPLETE) OUTSIDE MRI BRAIN (C-) CPT 29868 (RAD Detailed) CPT:47544 Reason for Study: Dementia. 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 and reports aids are not working at [...] phone. Wax guards will be mailed to . [place] and know how to use the [employer] support line for pairing aids to TV system and will contact us with any future problems/concerns. Patient Education Education provided on the following topics: See above Education provided to: P, F Response to Education: VU [place] Patient P Family F Significant Other SO Verbalizes Understanding VU Returns Demonstration RD Performs Independently PI Lacks Comprehension LC Refused Education RE Not Applicable NA /gurwinder/ DYLLAN Grey, CCC-Rose CHIEF, AUDIOLOGY/STEWARD/STEWARDESS ECONOMY CLASS Signed: 05/11/2024 14:07 [facility]
--- OUTSIDE RECORDS SUMMARY | 2024-09-01 14:56 | XMS_ITS ---
Author Name [facility] [place] [facility] [place] Address [address] [place] [address] Care Team Providers Care Rn Document Improvement Name Role Phone ERNESTO ARBOLEDA Primary Care [...] PART A August 12, 2008 PART A [id number] Dawson YOUNGER PATIENT MEDICARE (WNR) MEDICARE (M) PART B August 12, 2008 PART B [id number] Dawson YOUNGER PATIENT MEDICARE (WNR) MEDICARE (M) PART B August 12, 2008 PART B [id number] Dawson YOUNGER PATIENT MEDICARE (WNR) MEDICARE (M) PART A August 12, 2008 PART A [id number] Dawson YOUNGER PATIENT MEDICARE (WNR) MEDICARE (M) PART A August 12, 2008 PART A [id number] Dawson YOUNGER PATIENT MEDICARE (WNR) MEDICARE (M) PART B August 12, 2008 PART B [id number] Dawson YOUNGER PATIENT MEDICARE (WNR) MEDICARE (M) PART B August 12, 2008 PART B [id number] Dawson YOUNGER PATIENT MEDICARE (WNR) MEDICARE (M) PART A August 12, 2008 PART A [id number] Dawson YOUNGER PATIENT MEDICARE (WNR) MEDICARE (M) PART A August 12, 2008 PART A [id number] Dawson YOUNGER PATIENT MEDICARE (WNR) MEDICARE (M) PART B August 12, 2008 PART B [id number] Dawson YOUNGER PATIENT MEDICARE PART D (WNR) PRESCRIPT ION PART D Apr 14, 2015 PART D [id number] Dawson YOUNGER PATIENT UNICARE PREFERRED PROVIDER ORGANIZAT ION (PPO) [facility] August 12, 2008 [id number] Dawson YOUNGER PATIENT UNICARE MEDICARE SUPPLEMEN FARHAD WELLP OINT August 12, 2008 [id number] Dawson YOUGNER PATIENT UNICARE-G. I.C. MEDICAL EXPENSE (OPT/PROF ) [facility] August 12, 2008 [id number] [phone] Dawson YOUNGER PATIENT WELLPOINT MEDICAL EXPENSE (OPT/PROF ) [facility] August 12, 2008 [id number] Dawson YOUNGER PATIENT Selected Encounter This section includes the information on record at [place] for the Encounter. 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 Date/Time Primary/Secondary Diagnosis Diagnosis Name Provider Source Jan 02, 2024 10:53 AM PRIMARY Capslr glaucoma w/pseudxf lens, right eye, mild stage OSHINSKIE,CELENA Posey [place] [facility] [place] [facility] Jan 02, 2024 10:53 AM SECONDARY Capslr glaucoma w/pseudxf lens, left eye, mild stage OSHINSKIE,CELENA SUMNERD J [place] [facility] [place] [facility] Plan of Treatment: Future Appointments (+ 6 months) and Future Tests (+/- 45 days) The Plan of Treatment section includes future care activities for the patient from all [place] [facility]. This section includes future appointments [...] E [place] [facility] [place] [facility] Jan 21, 2024 02:30 PM AMBULATORY - PSYCHIATRY [place] [facility] [place] [facility] Jan 21, 2024 02:31 PM AMBULATORY - PSYCHIATRY [place] [facility] [place] [facility] Feb 05, 2024 11:00 AM AMBULATORY - REHAB MEDICIN E [facility] [place] [facility] Feb 05, 2024 01:30 PM AMBULATORY - MEDICINE [place] [facility] [place] [facility] Feb 26, 2024 01:00 PM AMBULATORY - MEDICINE [facility] Apr 15, 2024 11:00 AM AMBULATORY - REHAB MEDICIN E [place] [facility] [place] [facility] Apr 20, 2024 02:00 PM AMBULATORY - MEDICINE [place] [facility] [place] [facility] Apr 22, 2024 10:00 AM AMBULATORY - MEDICINE [place] [facility] [place] [facility] Apr 28, 2024 01:00 PM AMBULATORY - PSYCHIATRY [facility] [place] [facility] Apr 28, 2024 01:01 PM AMBULATORY - PSYCHIATRY [facility] [place] [facility] May 11, 2024 01:30 PM AMBULATORY - REHAB MEDICIN E [facility] [place] [facility] May 26, 2024 03:00 PM AMBULATORY - PSYCHIATRY [facility] [place] [facility] May 26, 2024 03:01 PM AMBULATORY - PSYCHIATRY [place] [facility] [place] [facility] Jun 22, 2024 01:00 PM AMBULATORY - MEDICINE [facility] Jun 22, 2024 03:00 PM [facility] Active, Pending, and Scheduled Orders This section includes a listing of several types of active, pending, and scheduled orders, including clinic medications orders, diagnostic test orders, procedure orders and consult orders; where the start date of the order is 45 days before the date of the Encounter or 45 days after the date of theEncounter. The data comes from all [place] treatment facilities. Test Date/Time Test Type Test Details Facility Name Dec 09, 2023 03:47 PM Consult Order COMMUNITY CARE-NEUROLOGY Cons Sausage Stuffer's [facility] Dec 12, 2023 11:03 AM Consult Order COMMUNITY CARE-SLEEP MEDICINE Cons [facility]ausage Stuffer[facility] Choice [facility] Social History: Smoking Status (Most current) and [...] 01:17 PM VA-TOBACCO NEVER USED [facility] Advance Directives: All historical and current Section [...] Source August 25, 2023 [facility] Encounter Notes: All associated encounter [...] only and only qam per recommendations at [facility]. He has move here permanently now. 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 P 1) Increase brimondine [...] of active outpatient prescriptions dispensed from this [place] (local) and dispensed from another VA or [...] (Tool #5) FACILITY ALLERGY/ADR -------- JYOTI HESS [facility] [place] [facility] Med. Reconciliation (Tool #1) INCLUDED IN [...] the patient into personal health records (i.e. [employer]) are NOT included in this list. Non-VA medications documented outside this [place], remote inpatient orders (regardless of status) and remote clinic medications are NOT included in this list. The patient and provider must always discuss medications the patient is taking, regardless of where the medication was dispensed or obtained. OUTPT ALBUTEROL 90MCG (CFC-F) 200D ORAL INHL (Status = Active) INHALE 2 PUFFS BY MOUTH FOUR TIMES DAILY NEEDED FOR BRONCHOSPASM Rx# [id number] Last Released: 11/12/23 Qty/Days Supply: Rx Expiration Date: 08/07/24 Refills Remainin Indication: FOR BRONCHOSPASM Remote ATORVASTATIN CA 80MG TAB TAKE ONE-HALF TABLET BY MOUTH EVERY DAY FOR CHOLESTEROL Last Filled: 11/10/23 (Active at [facility]) Rx Expiration Date: 06/30/24 Days Supply: 90 OUTPT ATORVASTATIN CALCIUM 80MG TAB (Status = Active) TAKE ONE TABLET BY MOUTH ONCE DAILY FOR HIGH CHOLESTEROL Rx# [id number] Last Released: 08/13/23 Qty/Days Supply: Rx Expiration Date: 08/08/24 Refills Remainin Indication: FOR HIGH CHOLESTEROL OUTPT BRIMONIDINE TARTRATE 0.2% OPH SOLN (Status = Discontinued) INSTILL 1 DROP INTO THE RIGHT EYE EVERY MORNING FOR INCREASED PRESSURE IN THE EYE FOR GLAUCOMA Rx# [id number] Last Released: 11/21/23 Qty/Days Supply: Rx Expiration [...] Last Filled: 06/16/23 (Active at [facility]) Rx Expiration Date: 03/28/24 Days Supply: 90 OUTPT CARBOXYMETHYLCELLULOSE NA 0.5% OPH SOLN (Status = Active) INSTILL 1 DROP INTO EACH EYE FOUR TIMES A DAY FOR DRY EYE Rx# [id number] Last Released: 11/21/23 Qty/Days Supply: Rx Expiration Date: 11/14/24 Refills Remainin Indication: FOR DRY EYE OUTPT DABIGATRAN ETEXILATE 150MG ORAL CAP (Status = Active) TAKE ONE CAPSULE BY MOUTH TWICE DAILY TO PREVENT BLOOD CLOTS (ONCE OPENED, THE MEDICATION MUST BE USED WITHIN 4 MONTHS) Rx# [id number] Last Released: 11/12/23 Qty/Days Supply: 180 Rx Expiration Date: 08/13/24 Refills Remainin Indication: TO PREVENT BLOOD CLOTS OUTPT DILTIAZEM (EQV-CARDIZEM) 240MG 24HR CAP (Status = Active) TAKE ONE CAPSULE BY MOUTH ONCE DAILY FOR ATRIAL FIBRILLATION Rx# [id number] Last Released: 11/05/23 Qty/Days Supply: Rx Expiration Date: 08/07/24 Refills Remainin Indication: FOR ATRIAL FIBRILLATION OUTPT DOXYCYCLINE HYCLATE 100MG TAB (Status = ) TAKE ONE TABLET BY MOUTH TWICE DAILY UPPER RESPIRATORY INFECTION Rx# [id number] Last Released: 10/30/23 Qty/Days Supply: 25/10 Rx Expiration Date: 11/29/23 Refills Remainin Indication: UPPER RESPIRATORY INFECTION OUTPT EZETIMIBE 10MG TAB (Status = Active/Suspended) TAKE ONE TABLET BY MOUTH ONCE DAILY TO LOWER CHOLESTEROL Rx# [id number] Last Released: 11/12/23 Qty/Days Supply: Rx Expiration Date: 08/07/24 Refills Remainin Indication: FOR HIGH CHOLESTEROL OUTPT FUROSEMIDE 20MG TAB (Status = Active) TAKE ONE TABLET BY MOUTH ONCE DAILY NEEDED FOR VISIBLE WATER RETENTION TO REMOVE FLUID/CONTROL BLOOD PRESSURE Rx# [id number] Last Released: 11/12/23 Qty/Days Supply: Rx Expiration Date: 08/08/24 Refills Remainin Indication: FOR VISIBLE WATER RETENTION Remote KETOCONAZOLE 2% SHAMPOO USE SMALL AMOUNT ON SCALP FRI,FRI AND FRIDAY SEBORRHEIC DERMATITIS LATHER, APPLY TO SCALP, LEAVE ON FOR 5 MINUTES, THEN WASH OFF. DO THIS THREE TIMES PER WEEK. Last Filled: 12/22/23 (Active at [facility]) Rx Expiration Date: 03/31/24 Days Supply: 30 OUTPT LATANOPROST 0.005% OPH SOLN (Status = Active) INSTILL 1 DROP INTO EACH EYE AT BEDTIME FOR INCREASED PRESSURE IN THE EYE Rx# [id number] Last Released: 11/19/23 Qty/Days Supply: Rx Expiration Date: 11/14/24 Refills Remainin Indication: FOR INCREASED PRESSURE IN THE EYE OUTPT METOPROLOL SUCCINATE 50MG SA TAB (Status = Active) TAKE ONE TABLET BY MOUTH ONCE DAILY FOR BLOOD PRESSURE/HEART Rx# [id number] Last Released: 11/12/23 Qty/Days Supply: Rx Expiration Date: 08/08/24 Refills Remainin Indication: FOR HIGH BLOOD PRESSURE Remote METOPROLOL TARTRATE 50MG TAB TAKE ONE-HALF TABLET BY MOUTH TWICE A DAY FOR HEART AND BLOOD PRESSURE Last Filled: 11/10/23 (Active at [facility]) Rx Expiration Date: 06/30/24 Days Supply: 90 Remote OMEPRAZOLE 20MG CAP,EC TAKE ONE CAPSULE BY MOUTH EVERY DAY FOR STOMACH Last Filled: 07/30/23 (Active at [facility]) Rx Expiration Date: 06/30/24 Days Supply: 90 OUTPT OMEPRAZOLE 20MG EC CAP (Status = Active) TAKE ONE CAPSULE BY MOUTH EVERY MORNING 30 MINUTES BEFORE BREAKFAST FOR GASTROESOPHAGEAL REFLUX DISEASE Rx# [id number] Last Released: 11/12/23 Qty/Days Supply: Rx Expiration Date: 08/08/24 Refills Remainin Indication: FOR GASTROESOPHAGEAL REFLUX DISEASE OUTPT PRIMIDONE 50MG TAB (Status = Active) TAKE ONE TABLET BY MOUTH ONCE DAILY FOR SIMPLE SEIZURE Rx# [id number] Last Released: 11/12/23 Qty/Days Supply: Rx Expiration Date: 08/08/24 Refills Remainin Indication: FOR SIMPLE SEIZURE Remote PRIMIDONE 50MG TAB TAKE ONE TABLET BY MOUTH THREE TIMES A DAY FOR TREMORS Last Filled: 07/30/23 (Active at [facility]) Rx Expiration Date: 06/30/24 Days Supply: 90 OUTPT QUETIAPINE FUMARATE 100MG TAB (Status = ) TAKE ONE TABLET BY MOUTH AT BEDTIME FOR ANXIETY Rx# [id number] Last Released: 10/30/23 Qty/Days Supply: Rx Expiration Date: 11/29/23 Refills Remainin Indication: FOR ANXIETY Remote QUETIAPINE FUMARATE 200MG TAB TAKE ONE-HALF TABLET BY MOUTH AT BEDTIME FOR ANXIETY Last Filled: 07/01/23 (Active at [facility]) Rx Expiration Date: 04/23/24 Days Supply: 30 OUTPT SERTRALINE HCL 100MG TAB (Status = Active) TAKE ONE TABLET BY MOUTH ONCE DAILY FOR POSTTRAUMATIC STRESS SYNDROME Rx# [id number] Last Released: 11/12/23 Qty/Days Supply: Rx Expiration Date: 08/08/24 Refills Remainin Indication: FOR POSTTRAUMATIC STRESS SYNDROME OUTPT TRAZODONE HCL 100MG TAB (Status = Active) TAKE 1/2 - 1 TABLET BY MOUTH AT BEDTIME NEEDED FOR INSOMNIA ASSOCIATED WITH DEPRESSION Rx# [id number] Last Released: 11/14/23 Qty/Days Supply: Rx Expiration Date: 11/13/24 Refills Remainin Indication: FOR INSOMNIA ASSOCIATED WITH DEPRESSION SUPPLIES PHARMACY TERMS AND POSSIBLE PATIENT ACTIONS INPT = [place] inpatient order IV = NH intravenous medication OUTPT = NH outpatient prescription PHARMACY POSSIBLE PATIENT TERMS EXPLANATION ACTIONS -------- - ACTIVE A prescription that can be If you have refills, filled at the local [place] pharmacy. you may request a refill of this prescription from your VA pharmacy. CLINIC A medication you received during If you have questions a visit to a VA clinic or about this medication emergency department. contact your VA healthcare team. DISCONTINUED A prescription your provider has Contact your VA stopped. It is no longer healthcare team if you available to be sent to you or need more of this picked up at the [place] pharmacy medication. window. A prescription which is [...] the VA. Or, it may be an aevd-[id number]-[id number] (OTC), herbal, dietary supplements or sample medication. [...] An active prescription that is Contact your NH not scheduled to be filled yet. pharmacy if you need You should receive it before this medication now. you run out. ==== /gurwinder/ Jose Fisher OD Fee Basis Lathe Set Up Person Signed: 01/01/2024 15:45 [facility] FISHER [facility]
--- OUTSIDE RECORDS SUMMARY | 2024-09-01 14:56 | XMS_ITS | Continuity of Care Document ---
Author Name [facility] Organization [facility] Care Team Providers Care Marketing Mgr Name Role Phone [facility] Unavailable Unavailable Problems Combined list of problems from Department of Defense and Veterans Affairs facilities. It does not include entries that were removed or entered in error. Problem Status Onset Date Problem Type Date of Resolution Comments Source Bilateral hearing loss Active Condition [facility] CAD - Coronary Artery Disease (SCT [id number]) Active Condition [facility] Chronic hypoxemic respiratory failure Active Condition [facility] Chronic obstructive lung disease [facility] CKD stage 3 Active Condition [facility] Cognitive decline Active Condition [facility] COPD - Chronic obstructive pulmonary disease Active Condition Aug 08, 2023 Entered By: TYLER ARBOLEDA A Comment: 2 L O2 dependent 04/11 [facility] Dementia Active Condition [facility] Depressive disorder (SNOMED CT 84340308) Active Condition [place] [facility] Essential tremor Active Condition [facility] FAYE - Generalised anxiety disorder Active Condition [facility] GERD - Gastro-Esophageal Reflux Disease (SCT 933975312) Active Condition [facility] Glaucoma Active Condition [facility] Hearing Loss, Bilateral [facility] History of male erectile disorder Active Condition [place] [facility] Hyperlipidemia [facility] Hypertriglyceridaemia Active Condition [facility] Insomnia Active Condition [facility] Long-term current use of anticoagulant Active Condition [facility] Chapin's granuloma Active Condition [facility] Obstructive sleep apnea Active Condition [facility] Obstructive sleep apnea syndrome Active Condition Feb 14, 2017 Entered By: JULIANA MAST Comment: Autopap [id number] 2018 Entered By: JAVI YOUNG Comment: NASAL [place] PAF - Paroxysmal atrial fibrillation Active Condition Aug 08, 2023 Entered By: TYLER ARBOLEDA Comment: s/p ablation x2 [facility] PAF - Paroxysmal atrial fibrillation Active Condition [facility] Paroxysmal atrial fibrillation Active Condition Jan 25, 2016 Entered By: JEFFERSON MORROW Comment: ablation - 10/2015 [facility] Posttraumatic stress disorder, delayed onset (SNOMED CT 779379658) Active Condition [facility] PTSD - Post-traumatic stress disorder Active Condition [facility] TIA - transient ischemic attack Active Condition [facility] Asthma, unspecified Inactive Condition [facility]09[facility] Cold sore Inactive Condition 01/25/2016 [facility] Dizziness Inactive Condition 08/11/2018 [facility] Glaucoma suspect Inactive Condition 07/04/[address] [place] [address] Glaucoma, Suspect (ICD-9-CM 365.00) Inactive Condition 06/23/2015 [facility] Hyperlipidemia Inactive Condition 08/09/2019 [facility] PSEUDOEXFOLIAT GLAUCOMA Inactive Condition 06/23/2015 [facility] Diagnosis: ICD-10-CM Z79.01 intermediate (current) use of anticoagulants 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, bilateral, moderate stage Active Diagnosis [facility] Diagnosis: ICD-10-CM Z04.89 Encounter for examination and observation for oth reasons Active Diagnosis [facility] Diagnosis: ICD-10-CM F03.B4 Unspecified dementia, moderate, with anxiety Active Diagnosis [facility] Diagnosis: ICD-10-CM F43.10 Post-traumatic stress disorder, unspecified Active Diagnosis [facility] Diagnosis: ICD-10-CM Z46.1 Encounter for fitting and adjustment of hearing aid Active Diagnosis [facility] Diagnosis: ICD-10-CM 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, right eye, mild stage Active Diagnosis [facility] Diagnosis: ICD-10-CM H40.1421 Capslr glaucoma w/pseudxf lens, left eye, mild stage Active Diagnosis [facility] Diagnosis: ICD-10-CM R41.3 Other amnesia Active Diagnosis [facility] Diagnosis: ICD-10-CM H40.1412 Capslr glaucoma w/pseudxf lens, right eye, moderate stage Active Diagnosis [facility] Diagnosis: ICD-10-CM J96.11 Chronic respiratory failure with hypoxia Active Diagnosis [facility] Diagnosis: ICD-10-CM K03.6 Deposits [accretions] on teeth Active Diagnosis [facility] Diagnosis: ICD-10-CM I48.20 Chronic atrial fibrillation, unspecified Active Diagnosis [facility] Diagnosis: ICD-10-CM F43.12 Post-traumatic stress disorder, chronic Active Diagnosis [facility] Diagnosis: ICD-10-CM K08.531 Fractured dental restorative material with loss of material Active Diagnosis [facility] Diagnosis: ICD-10-CM 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 Diagnosis: ICD-10-CM R68.89 Other general symptoms and signs [facility] Diagnosis: ICD-10-CM L30.8 Other specified dermatitis Active Diagnosis [facility] Diagnosis: ICD-10-CM Z23 Encounter for immunization Active Diagnosis [facility] Medications Combined list of outpatient medications from [...] BR[facility] [place] RESPIR ATORY (INHAL ATION) ACTIVE 06/23/2025 [id number] 5 Connor ARBOLEDA AVID A 2024 2 [place] ALBUTEROL 90MCG/ACTUA T (CFC-F) INHL,ORAL,8 .5GM DOSE COUNTER INHALE 2 PUFFS BY MOUTH FOUR TIMES DAILY NEEDED FOR BRONCHOS [place]M RESPIR ATORY (INHAL ATION) DISCONT INUED 08/07/2024 [id number] Connor ARBOLEDAD A 2023 2 [place] ATORVASTATI N CA 80MG TAB TAKE ONE TABLET BY MOUTH ONCE DAILY FOR HIGH CHOLESTE ROL ORAL DISCONT INUED BY PROVIDE R 08/08/2024 [id number] Connor ARBOLEDAD A 2023 90 [place] ATORVASTATI N CA 80MG TAB TAKE ONE-HALF TABLET BY MOUTH EVERY DAY FOR CHOLESTE ROL ORAL 06/30/2024 [id number] 4 Narendra MORROW [address] [facility] BRIMONIDINE TARTRATE 0.2% SOLN,OPH INSTILL 1 DROP INTO THE RIGHT EYE EVERY MORNING FOR INCREASE D PRESSURE IN THE EYE FOR GLAUCOMA OPHTHA LMIC ACTIVE 07/28/2025 [id number] 5 GERMAIN MILLER 2024 10 [facility] BRIMONIDINE TARTRATE 0.2% SOLN,OPH INSTILL 1 DROP INTO THE RIGHT EYE TWICE DAILY FOR GLAUCOMA OPHTHA LMIC DISCONT INUED (EDIT) 01/01/2025 [id number] 4 JOSE GREENE 2023 10 [facility] BRIMONIDINE TARTRATE 0.2% SOLN,OPH INSTILL 1 DROP INTO THE RIGHT EYE EVERY MORNING FOR INCREASE D PRESSURE IN THE EYE FOR GLAUCOMA OPHTHA LMIC DISCONT INUED (EDIT) 11/14/2024 [id number] 4 JOSE GREENE 2023 10 [facility] BRIMONIDINE TARTRATE 0.2% SOLN,OPH INSTILL 1 DROP INTO RIGHT EYE EVERY MORNING FOR GLAUCOMA OPHTHA LMIC 03/28/2024 [id number] 4 PEGGY ANDERSON SA [address] [place] [address] CARBOXYMETH YLCELLULOSE NA 0.5% SOLN,OPH INSTILL 1 DROP INTO EACH EYE FOUR TIMES A DAY FOR DRY EYE OPHTHA LMIC ACTIVE 11/14/2024 [id number] 5 JOSE GREENE 2023 [facility] DABIGATRAN ETEXILATE 150MG CAP,ORAL TAKE ONE CAPSULE BY MOUTH TWICE DAILY TO PREVENT BLOOD CLOTS (ONCE OPENED, THE MEDICATI ON MUST BE USED WITHIN 4 MONTHS) ORAL 08/13/2024 [id number] Connor ARBOLEDAD A 2023 180 [place] DILTIAZEM (EQV-CARDIZ EM AB3) 240MG 24HR CAP TAKE ONE CAPSULE BY MOUTH ONCE DAILY FOR ATRIAL FIBRILLA TION ORAL ACTIVE 06/23/2025 [id number] 5 Connor ARBOLEDA AVID A 2024 90 [place] DILTIAZEM (EQV-CARDIZ EM AB3) 240MG 24HR CAP TAKE ONE CAPSULE BY MOUTH ONCE DAILY FOR ATRIAL FIBRILLA TION ORAL DISCONT INUED 08/07/2024 [id number] Connor ARBOLEDA AVID A 2023 90 [place] DOXYCYCLINE HYCLATE 100MG TAB TAKE ONE TABLET BY MOUTH TWICE DAILY UPPER RESPIRAT ORY INFECTIO N ORAL 11/29/2023 [id number] Connor ARBOLEDAD A 2023 14 [place] EZETIMIBE 10MG TAB TAKE ONE TABLET BY MOUTH ONCE DAILY TO LOWER CHOLESTE ROL ORAL ACTIVE 06/23/2025 [id number] 5 Connor ARBOLEDAD A 2024 90 [place] EZETIMIBE 10MG TAB TAKE ONE TABLET BY MOUTH ONCE DAILY TO LOWER CHOLESTE ROL ORAL DISCONT INUED 08/07/2024 [id number] Connor ARBOLEDAD A 2023 90 [place] FENOFIBRATE 48MG TAB TAKE ONE TABLET BY MOUTH ONCE DAILY FOR HIGH CHOLESTE ROL ORAL ACTIVE 02/26/2025 [id number] Connor ARBOLEDAD A 2023 90 [place] FUROSEMIDE 20MG TAB TAKE ONE TABLET BY MOUTH ONCE DAILY NEEDED FOR VISIBLE WATER RETENTIO N TO REMOVE FLUID/CO NTROL BLOOD PRESSURE ORAL ACTIVE 06/23/2025 [id number] 5 Connor ARBOLEDAD A 2024 90 [place] FUROSEMIDE 20MG TAB TAKE ONE TABLET BY MOUTH ONCE DAILY NEEDED FOR VISIBLE WATER RETENTIO N TO REMOVE FLUID/CO NTROL BLOOD PRESSURE ORAL DISCONT INUED 08/08/2024 [id number] Connor ARBOLEDAD A 2023 90 [facility] [place] FUROSEMIDE 20MG TAB TAKE ONE TABLET BY MOUTH EVERY MORNING ORAL ACTIVE Narendra MORROW 2019 [facility] KETOCONAZOL E 2% SHAMPOO USE SMALL AMOUNT ON SCALP FRI,FRI AND FRIDAY SEBORRHE IC DERMATIT IS LATHER, APPLY TO SCALP, LEAVE ON FOR 5 MINUTES, THEN WASH OFF. DO THIS THREE TIMES PER WEEK. LATHER, APPLY TO SCALP, LEAVE ON FOR 5 MINUTES, THEN WASH OFF. DO THIS THREE TIMES PER WEEK. TOPICA L 03/31/2024 [id number] 4 Javad MERRITT 2022 120 [facility] LATANOPROST 0.005% SOLN,OPH INSTILL 1 DROP INTO EACH EYE AT BEDTIME FOR INCREASE D PRESSURE IN THE EYE OPHTHA LMIC ACTIVE 11/14/2024 [id number] JOSE GREENE 2023 7.5 [facility] LATANOPROST 0.005% SOLN,OPH INSTILL 1 DROP INTO BOTH EYES AT BEDTIME FOR GLAUCOMA OPHTHA LMIC 09/27/2023 [id number] 4 PEGGY ANDERSON SA S [address] [place] [address] METOPROLOL SUCCINATE 50MG TAB,SA TAKE ONE TABLET BY MOUTH ONCE DAILY FOR BLOOD PRESSURE /HEART ORAL ACTIVE 06/23/2025 [id number] 5 Connor ARBOLEDAD A 2024 90 [place] METOPROLOL SUCCINATE 50MG TAB,SA TAKE ONE TABLET BY MOUTH ONCE DAILY FOR BLOOD PRESSURE /HEART ORAL DISCONT INUED 08/08/2024 [id number] Connor ARBOLEDAD A 2023 90 [place] METOPROLOL TARTRATE 50MG TAB TAKE ONE-HALF TABLET BY MOUTH TWICE A DAY FOR HEART AND BLOOD PRESSURE ORAL 06/30/2024 [id number] 4 Narendra MORROW ISHORE 2023 90 [facility] OMEPRAZOLE 20MG CAP,EC TAKE ONE CAPSULE BY MOUTH EVERY MORNING 30 MINUTES BEFORE BREAKFAS T FOR GASTROES OPHAGEAL REFLUX DISEASE ORAL ACTIVE 06/23/2025 [id number] 5 Connor ARBOLEDAD A 2024 90 [place] OMEPRAZOLE 20MG CAP,EC TAKE ONE CAPSULE BY MOUTH EVERY MORNING 30 MINUTES BEFORE BREAKFAS T FOR GASTROES OPHAGEAL REFLUX DISEASE ORAL DISCONT INUED 08/08/2024 [id number] Connor ARBOLEDA AVID A 2023 90 [place] OMEPRAZOLE 20MG CAP,EC TAKE ONE CAPSULE BY MOUTH EVERY DAY FOR STOMACH ORAL 06/30/2024 [id number] 4 Narendra MORROW ISHORE 2023 90 [facility] PRIMIDONE 50MG TAB TAKE ONE TABLET BY MOUTH ONCE DAILY FOR SIMPLE SEIZURE ORAL ACTIVE 06/23/2025 [id number] Connor ARBOLEDAD A 2024 90 [place] PRIMIDONE 50MG TAB TAKE ONE TABLET BY MOUTH ONCE DAILY FOR SIMPLE SEIZURE ORAL DISCONT INUED 08/08/2024 [id number] Connor ARBOLEDAD A 2023 90 [place] PRIMIDONE 50MG TAB TAKE ONE TABLET BY MOUTH THREE TIMES A DAY FOR TREMORS ORAL 06/30/2024 [id number] 4 Narendra MORROW 2023 270 [facility] QUETIAPINE FUMARATE 100MG TAB TAKE ONE TABLET BY MOUTH AT BEDTIME FOR MOOD AND PTSD ORAL SUSPEND ED 05/27/2025 [id number] Edwin HERNANDEZ G 2024 90 [place] QUETIAPINE FUMARATE 100MG TAB TAKE ONE TABLET BY MOUTH AT BEDTIME FOR MOOD AND PTSD ORAL DISCONT INUED (EDIT) 04/29/2025 [id number] Edwin HERNANDEZ G 2024 30 [place] QUETIAPINE FUMARATE 100MG TAB TAKE ONE TABLET BY MOUTH AT BEDTIME FOR ANXIETY ORAL 11/29/2023 [id number] Connor ARBOLEDA A 2023 30 [place] QUETIAPINE FUMARATE 200MG TAB TAKE ONE-HALF TABLET BY MOUTH AT BEDTIME FOR ANXIETY ORAL 04/23/2024 [id number] Shaila EDWARD N 2023 15 [facility] SERTRALINE HCL 100MG TAB TAKE ONE TABLET BY MOUTH ONCE DAILY FOR POSTTRAU MATIC STRESS SYNDROME ORAL ACTIVE 06/23/2025 [id number] 5 Connor ARBOLEDAD A 2024 90 [place] SERTRALINE HCL 100MG TAB TAKE ONE TABLET BY MOUTH ONCE DAILY FOR POSTTRAU MATIC STRESS SYNDROME ORAL DISCONT INUED 08/08/2024 [id number] Connor ARBOLEDAD A 2023 90 [place] TRAZODONE HCL 100MG TAB TAKE TWO TABLETS BY MOUTH AT BEDTIME FOR INSOMNIA ASSOCIAT ED WITH DEPRESSI ON ORAL DISCONT INUED BY PROVIDE R 01/21/2025 [id number] Edwin HERNANDEZ G 2023 180 [place] TRAZODONE HCL 100MG TAB TAKE 1/2 - 1 TABLET BY MOUTH AT BEDTIME NEEDED FOR INSOMNIA ASSOCIAT ED WITH DEPRESSI ON ORAL DISCONT INUED (EDIT) 11/13/2024 [id number] 4 Edwin HERNANDEZ G 2023 30 [place] UMECLIDINIU M/VILANTERO L INHALER INHL,ORAL USE BY INHALATI ON EVERY DAY RESPIR ATORY (INHAL ATION) ACTIVE Narendra MORROW 2019 [facility] Allergies, Adverse Reactions, Alerts Combined list of [...] reactions to drug (finding) Angioedema active 0 [facility] LISINOPRIL Propensity to adverse reactions to drug (finding) Swelling active 4 [facility] Immunizations Combined list of available immunizations from the Department of Defense and Veterans Affairs facilities. Immunization Series Date Given Administered By Site Reaction Lot Number CVX Code Drug Asw/Asuw Tactical Air Controller Status Comments Source COVID-19 (MODERNA), MRNA, LNP-S, PF, 50 MCG/0.5 ML (AGES 12+ YEARS) 2023 EMELY BRUNO E R RIGHT DELTO ID [id number] 312 complet ed [facility]MIN[facility]E [facility] AT [facility] INFLUENZA, HIGH-DOSE, TRIVALENT, PF 2023 ANDERSON BRUNOL E R LEFT DELTO ID [id number] 135 complet ed [facility]MIN[facility]E [facility] AT [facility] INFLUENZA, INJECTABLE, QUADRIVALENT, PRESERVATIVE FREE 2022 JIMMY FOOTE RIGHT DELTO ID [id number] A 150 complet ed Completed Series, ADMINISTE RED AT [facility], [facility] RSV, BIVALENT, PROTEIN SUBUNIT RSVPREF, DILUENT RECONSTITUTED , 0.5 ML, PF 2022 JIMMY FOOTE LEFT DELTO ID [id number] 305 complet ed Completed Series, ADMINISTE RED AT PR, diluent lot#[id number] exp: 06/08 [facility] INFLUENZA, UNSPECIFIED FORMULATION 2022 88 complet ed Completed Series, HISTORICA L INFORMATI ON - FROM OTHER REGISTRY, [facility] INFLUENZA, SEASONAL, INJECTABLE 2021 141 complet ed HISTORICA L INFORMATI ON - FROM OTHER REGISTRY, [facility] INFLUENZA VACCINE, QUADRIVALENT, ADJUVANTED 1 2021 205 complet ed HISTORICA L INFORMATI ON - FROM OTHER REGISTRY, [facility] COVID-19 (MODERNA), MRNA, LNP-S, PF, 100 MCG OR 50 MCG DOSE 3 2020 207 complet ed MOD; [id number]; 2 [facility] COVID-19 (MODERNA), MRNA, LNP-S, PF, 100 MCG/0.5ML DOSE OR 50 MCG/0.25ML DOSE 3 2020 207 complet ed HISTORICA L INFORMATI ON - FROM OTHER REGISTRY, [facility] INFLUENZA, RECOMBINANT, QUADRIVALENT, INJECTABLE, PRESERVATIVE FREE 1 2020 185 complet ed HISTORICA L INFORMATI ON - FROM OTHER REGISTRY, [facility] ZOSTER RECOMBINANT 2 2020 187 complet ed [facility] ZOSTER RECOMBINANT 1 2020 187 complet ed [facility] COVID-19 (MODERNA), MRNA, LNP-S, PF, 100 MCG/0.5 ML DOSE 2 2020 207 complet ed [facility] COVID-19 (MODERNA), MRNA, LNP-S, PF, 100 MCG/0.5 ML DOSE 1 2020 207 complet ed [facility] COVID-19 (MODERNA), MRNA, LNP-S, PF, 100 MCG/0.5ML DOSE OR 50 MCG/0.25ML DOSE 1 2020 207 complet ed HISTORICA L INFORMATI ON - FROM OTHER REGISTRY, [facility] INFLUENZA, UNSPECIFIED FORMULATION 2019 88 complet ed [facility] INFLUENZA, SEASONAL, INJECTABLE 2019 141 complet ed HISTORICA L INFORMATI ON - FROM OTHER REGISTRY, [facility] INFLUENZA, INJECTABLE, QUADRIVALENT, PRESERVATIVE FREE 1 2019 150 complet ed HISTORICA L INFORMATI ON - FROM OTHER REGISTRY, [facility] INFLUENZA, UNSPECIFIED FORMULATION 2018 88 complet ed [facility] INFLUENZA, UNSPECIFIED FORMULATION 2017 88 complet ed [facility] INFLUENZA, SEASONAL, INJECTABLE 2016 141 complet ed [employer] [facility] TDAP 1 2016 115 complet ed HISTORICA L INFORMATI ON - FROM OTHER REGISTRY, [facility] INFLUENZA, UNSPECIFIED FORMULATION 2015 88 complet ed [employer]S [facility] INFLUENZA, HIGH DOSE SEASONAL 1 2015 135 complet ed HISTORICA L INFORMATI ON - FROM OTHER REGISTRY, [facility] INFLUENZA, UNSPECIFIED FORMULATION 2014 88 complet ed BIO CSL [facility] ZOSTER LIVE 2014 121 complet ed [facility] TDAP 2014 115 complet ed [facility] INFLUENZA, UNSPECIFIED FORMULATION 2014 88 complet ed [facility] PNEUMOCOCCAL CONJUGATE PCV 13 1 2014 133 complet ed HISTORICA L INFORMATI ON - FROM OTHER REGISTRY, [facility] INFLUENZA, UNSPECIFIED FORMULATION 2012 88 complet ed [employer]Siddiqui [facility], UNSPECIFIED FORMULATION 2011 88 complet ed [facility] INFLUENZA, UNSPECIFIED FORMULATION 2009 88 complet ed [facility] INFLUENZA, UNSPECIFIED FORMULATION 2008 88 complet ed [facility] PNEUMOCOCCAL, UNSPECIFIED FORMULATION 2008 109 complet ed [facility] PNEUMOCOCCAL POLYSACCHARID E [id number] 2008 33 complet ed Completed Series, HISTORICA L INFORMATI ON - FROM OTHER REGISTRY, [facility] TD(ADULT) UNSPECIFIED FORMULATION 2008 139 complet ed per patient [facility] INFLUENZA, UNSPECIFIED FORMULATION 2007 88 complet ed [facility] Results Combined list of recent chemistry, hematology and other laboratory results from Department of Defense and Veterans Affairs, ranging from 15 months to all on record, depending upon the facility. Order Name Results Value Reference Range Date Interpretation Specimen Comments Source TSH THYROTROPI N [UNITS/VOL UME] IN SERUM OR PLASMA 2.04 u[IU]/mL 0.35 - 5.00 06/22 Specimen Type: SERUM No comment entered. Ordering Provider: TYLER ARBOLEDA A Report Released Date/Time: Jun 16, 2024 03:51 PM Reporting Lab: [facility] [address] [address] Performing Lab: [address] [address] [place] BASIC METABOLI C PANEL (non-fas ting) UREA NITROGEN [MASS/VOLU ME] IN SERUM OR PLASMA 16 mg/dL 7 - 25 06/22 Specimen Type: SERUM No comment entered. Ordering Provider: TYLER ARBOLEDA A Report Released Date/Time: Jun 16, 2024 03:51 PM Reporting Lab: [facility] [address] [facility] [facility] [address] Performing Lab: [facility]ITALUSE[address] [address] [place] Fetch MD BASIC METABOLI C PANEL (non-fas ting) GLUCOSE [MASS/VOLU ME] IN SERUM OR PLASMA 122 mg/dL 65 - 100 06/22 H Specimen Type: SERUM No comment entered. Ordering Provider: TYLER ARBOLEDA A Report Released Date/Time: Jun 16, 2024 03:51 PM Reporting Lab: [facility] [address] [facility] [facility] [address] Performing Lab: [address] [address] [place] BASIC METABOLI C PANEL (non-fas ting) SODIUM [MOLES/VOL UME] IN SERUM OR PLASMA 139 mmol/L 135 - 145 06/22 Specimen Type: SERUM No comment entered. Ordering Provider: TYLER ARBOLEDA A Report Released Date/Time: Jun 16, 2024 03:51 PM Reporting Lab: [facility] [address] [address] Performing Lab: [facility] [address] [address] [place] BASIC METABOLI C PANEL (non-fas ting) POTASSIUM [MOLES/VOL UME] IN SERUM OR PLASMA 4.3 mmol/L 3.5 - 5.0 06/22 Specimen Type: SERUM No comment entered. Ordering Provider: TYLER ARBOLEDA A Report Released Date/Time: Jun 16, 2024 03:51 PM Reporting Lab: [facility] [address] [address] Performing Lab: [facility]ITALUSE[address] [address] [place] BASIC METABOLI C PANEL (non-fas ting) CHLORIDE [MOLES/VOL UME] IN SERUM OR PLASMA 105 mmol/L 100 - 110 06/22 Specimen Type: SERUM No comment entered. Ordering Provider: TYLER ARBOLEDA A Report Released Date/Time: Jun 16, 2024 03:51 PM Reporting Lab: [facility]ITALRPR[facility]TV[facility]ITALTRN [facility] HOSPITALUSETS [address] [address] Performing Lab: [facility]ITALRPRATTVIL[facility]PITALTRN [facility]ITALUSE[address] [address] [place] BASIC METABOLI C PANEL (non-fas ting) CARBON DIOXIDE, TOTAL [MOLES/VOL UME] IN SERUM OR PLASMA 24 meq/L 20 - 30 06/22 Specimen Type: SERUM No comment entered. Ordering Provider: TYLER ARBOLEDA A Report Released Date/Time: Jun 16, 2024 03:51 PM Reporting Lab: [facility]ITALUSE[address] [address] Performing Lab: [address] [address] [place] BASIC METABOLI C PANEL (non-fas ting) CALCIUM [MASS/VOLU ME] IN SERUM OR PLASMA 9.1 mg/dL 8.5 - 10.2 06/22 Specimen Type: SERUM No comment entered. Ordering Provider: TYLER ARBOLEDA A Report Released Date/Time: Jun 16, 2024 03:51 PM Reporting Lab: [address] [address] Performing Lab: [address] [address] [place] BASIC METABOLI C PANEL (non-fas ting) CREATININE [MASS/VOLU ME] IN SERUM OR PLASMA 1.30 mg/dL 0.50 - 1.40 06/22 Specimen Type: SERUM No comment entered. Ordering Provider: TYLER RABOLEDA A Report Released Date/Time: Jun 16, 2024 03:51 PM Reporting Lab: [address] [address] Performing Lab: [address] [address] [place] BASIC METABOLI C PANEL (non-fas ting) GLOMERULAR FILTRATION RATE/1.73 SQ M.PREDICTE D [VOLUME RATE/AREA] IN SERUM, PLASMA OR BLOOD BY CREATININE -BASED FORMULA (CKD-EPI 2020) 55 mL/min 60 06/22 L Specimen Type: SERUM No comment entered. Ordering Provider: TYLER ARBOLEDA A Report Released Date/Time: Jun 16, 2024 03:51 PM Reporting Lab: [address] [address] Performing Lab: [address] [address] [place] LIPID PANEL, NON FASTING CHOLESTERO L [MASS/VOLU ME] IN SERUM OR PLASMA 213 mg/dL 06/22 H Specimen Type: SERUM No comment entered. Ordering Provider: TYLER ARBOLEDA A Report Released Date/Time: Jun 16, 2024 03:51 PM Reporting Lab: [facility] [address] [facility] [address] Performing Lab: [facility] [address] [address] [place] LIPID PANEL, NON FASTING TRIGLYCERI DE [MASS/VOLU ME] IN SERUM OR PLASMA 164 mg/dL 0 - 150 06/22 H Specimen Type: SERUM No comment entered. Ordering Provider: TYLER ARBOLEDA A Report Released Date/Time: Jun 16, 2024 03:51 PM Reporting Lab: [facility]N [address] [address] Performing Lab: [facility] [address] [address] [place] LIPID PANEL, NON FASTING CHOLESTERO L IN LDL [MASS/VOLU ME] IN SERUM OR PLASMA BY CALCALLIE N 123 mg/dL 0 - 129 06/22 Specimen Type: SERUM No comment entered. Ordering Provider: TYLER ARBOLEDA A Report Released Date/Time: Jun 16, 2024 03:51 PM Reporting Lab: [facility] [address] [address] Performing Lab: [facility]PITALRL TRN [facility]ITALUSE[address] [address] [place] LIPID PANEL, NON FASTING CHOLESTERO L.TOTAL/CH OLESTEROL IN HDL [MASS RATIO] IN SERUM OR PLASMA 3.7 06/22 Specimen Type: SERUM No comment entered. Ordering Provider: TYLER ARBOLEDA A Report Released Date/Time: Jun 16, 2024 03:51 PM Reporting Lab: [facility]ITALRPRATTVILLE B[facility] HOSPITALTRN [address] [address] Performing Lab: [facility]N [facility]ITALUSE[address] [address] [place] LIPID PANEL, NON FASTING CHOLESTERO L IN HDL [MASS/VOLU ME] IN SERUM OR PLASMA 57 mg/dL 40 - 60 06/22 Specimen Type: SERUM No comment entered. Ordering Provider: TYLER ARBOLEDA A Report Released Date/Time: Jun 16, 2024 03:51 PM Reporting Lab: [facility]ITALRPRATTVIL[facility] B[facility] HOSPITALTRN [address] [address] Performing Lab: [facility]N [facility]ITALUSE[address] [address] [place] FUN[place] PROTEIN [MASS/VOLU ME] IN SERUM OR PLASMA 7.7 g/dL 6.0 - 8.3 06/22 Specimen Type: SERUM No comment entered. Ordering Provider: TYLER ARBOLEDA A Report Released Date/Time: Jun 16, 2024 03:51 PM Reporting Lab: [facility] [address] [address] Performing Lab: [facility]N [address] [address] [facility] FUNCTION ALBUMIN [MASS/VOLU ME] IN SERUM OR PLASMA 3.8 g/dL 3.5 - 5.0 06/22 Specimen Type: SERUM No comment entered. Ordering Provider: TYLER ARBOLEDA A Report Released Date/Time: Jun 16, 2024 03:51 PM Reporting Lab: [facility] [address] [address] Performing Lab: [facility]N [facility]ITALUSE[address] [address] [facility] LIVER FUNCTION ALKALINE PHOSPHATAS E [ENZYMATIC ACTIVITY/V OLUME] IN SERUM OR PLASMA 72 U/L 40 - 150 06/22 Specimen Type: SERUM No comment entered. Ordering Provider: TYLER ARBOLEDA A Report Released Date/Time: Jun 16, 2024 03:51 PM Reporting Lab: [facility]ITALRPRATTVILLE BAP[facility]IST HOSPITALTRN [address] [address] Performing Lab: [facility]N [facility]ITALUSE[address] [address] [facility] LIVER FUNCTION ASPARTATE AMINOTRANS FERASE [ENZYMATIC ACTIVITY/V OLUME] IN SERUM OR PLASMA 11 U/L 5 - 34 06/22 Specimen Type: SERUM No comment entered. Ordering Provider: TYLER ARBOLEDA A Report Released Date/Time: Jun 16, 2024 03:51 PM Reporting Lab: [address] [address] Performing Lab: [address] [address] [facility] LIVER FUNCTION ALANINE AMINOTRANS FERASE [ENZYMATIC ACTIVITY/V OLUME] IN SERUM OR PLASMA 12 U/L 06/22 Specimen Type: SERUM No comment entered. Ordering Provider: TYLER ARBOLEDA A Report Released Date/Time: Jun 16, 2024 03:51 PM Reporting Lab: [address] [address] Performing Lab: [address] [address] [facility] LIVER FUNCTION BILIRUBIN. TOTAL [MASS/VOLU ME] IN SERUM OR PLASMA 0.4 mg/dL 0.2 - 1.2 06/22 Specimen Type: SERUM No comment entered. Ordering Provider: TYLER ARBOLEDA A Report Released Date/Time: Jun 16, 2024 03:51 PM Reporting Lab: [address] [address] Performing Lab: [address] [address] [facility] HEMOGLOB IN A1C PANEL HEMOGLOBIN A1C/HEMOGL OBIN.TOTAL IN BLOOD BY HPLC 6.0 4.0 - 5.6 06/22 H Specimen Type: BLOOD Comment: Values obtained from A1C measurement s can vary. For atypical A1C assays, a reported value of 7.0 could actually be between 6.72 and 7.28 if measured by a reference method. A reported value of 9.0 could actually be between 8.73 and 9.27. Ref: http://www. ngsp.org/[place] Pdata.asp Ordering Provider: TYLER ARBOLEDA A Report Released Date/Time: Jun 16, 2024 03:51 PM Reporting Lab: [address] [address] Performing Lab: [address] [address] [place] CBC AND DIFF (AUTO) LEUKOCYTES [#/VOLUME] IN BLOOD BY AUTOMATED COUNT 6.46 10*3/uL 4.50 - 11.00 06/22 Specimen Type: BLOOD No comment entered. Ordering Provider: TYLER ARBOLEDA A Report Released Date/Time: Jun 16, 2024 03:51 PM Reporting Lab: [facility]ITALR WSTRN [facility]PITALCHUSETS [address] [address] Performing Lab: [place] CN[facility]L [place] [address] [address] [place] CBC AND DIFF (AUTO) ERYTHROCYT ES [#/VOLUME] IN BLOOD BY AUTOMATED COUNT 5.21 10*6/uL 4.23 - 5.66 06/22 Specimen Type: BLOOD No comment entered. Ordering Provider: TYLER ARBOLEDA A Report Released Date/Time: Jun 16, 2024 03:51 PM Reporting Lab: [facility] W[facility]N [place] [address] [address] Performing Lab: [facility]ITALRL WSTRN [place] [address] [address] [place] CBC AND DIFF (AUTO) HEMOGLOBIN [MASS/VOLU ME] IN BLOOD 16.1 g/dL 12.8 - 17 06/22 Specimen Type: BLOOD No comment entered. Ordering Provider: TYLER ARBOLEDA A Report Released Date/Time: Jun 16, 2024 03:51 PM Reporting Lab: [facility] WSTRN [place] [address] [address] Performing Lab: [facility]ITALRL WSTRN [place] [address] [address] [place] CBC AND DIFF (AUTO) HEMATOCRIT [VOLUME FRACTION] OF BLOOD BY AUTOMATED COUNT 47.6 39.2 - 50.4 06/22 Specimen Type: BLOOD No comment entered. Ordering Provider: TYLER ARBOLEDA A Report Released Date/Time: Jun 16, 2024 03:51 PM Reporting Lab: [facility] WSTRN [place] [address] [address] Performing Lab: [facility]PITALRL WSTRN [address] [address] [place] CBC AND DIFF (AUTO) MCV [ENTITIC VOLUME] BY AUTOMATED COUNT 91.4 fL 82 - 99 06/22 Specimen Type: BLOOD No comment entered. Ordering Provider: TYLER ARBOLEDA A Report Released Date/Time: Jun 16, 2024 03:51 PM Reporting Lab: [facility]N [address] [address] Performing Lab: [facility]ITALR[facility]N [address] [address] [place] CBC AND DIFF (AUTO) MCHC [MASS/VOLU ME] BY AUTOMATED COUNT 33.8 g/dL 30.8 - 35.1 06/22 Specimen Type: BLOOD No comment entered. Ordering Provider: TYLER ARBOLEDA A Report Released Date/Time: Jun 16, 2024 03:51 PM Reporting Lab: [facility] [address] [address] Performing Lab: [facility]ITALR[facility]N [address] [address] [place] CBC AND DIFF (AUTO) PLATELETS [#/VOLUME] IN BLOOD BY AUTOMATED COUNT 289 10*3/uL 140 - 360 06/22 Specimen Type: BLOOD No comment entered. Ordering Provider: TYLER ARBOLEDA A Report Released Date/Time: Jun 16, 2024 03:51 PM Reporting Lab: [facility] [address] [address] Performing Lab: [facility]ITALR[facility]N [address] [address] [place] CBC AND DIFF (AUTO) ERYTHROCYT E DISTRIBUTI ON WIDTH [RATIO] BY AUTOMATED COUNT 12.5 12.0 - 16.0 06/22 Specimen Type: BLOOD No comment entered. Ordering Provider: TYLER ARBOLEDA A Report Released Date/Time: Jun 16, 2024 03:51 PM Reporting Lab: [facility]N [address] [address] Performing Lab: [facility]N [address] [address] [place] CBC AND DIFF (AUTO) MONOCYTES [#/VOLUME] IN BLOOD BY AUTOMATED COUNT 0.55 10*3/uL 0.30 - 1.10 06/22 Specimen Type: BLOOD No comment entered. Ordering Provider: TYLER ARBOLEDA A Report Released Date/Time: Jun 16, 2024 03:51 PM Reporting Lab: [facility]L W[facility]N [place] [address] [address] Performing Lab: [facility] [address] [address] [place] CBC AND DIFF (AUTO) MCH [ENTITIC MASS] BY AUTOMATED COUNT 30.9 pg 26.2 - 32.6 06/22 Specimen Type: BLOOD No comment entered. Ordering Provider: TYLER ARBOLEDA A Report Released Date/Time: Jun 16, 2024 03:51 PM Reporting Lab: [facility]ITALRL W[facility]N [facility] [address] [address] Performing Lab: [facility] CN[facility]L [place] [address] [address] [place] CBC AND DIFF (AUTO) NEUTROPHIL S/100 LEUKOCYTES IN BLOOD BY AUTOMATED COUNT 58.8 43.7 - 75.8 06/22 Specimen Type: BLOOD No comment entered. Ordering Provider: TYLER ARBOLEDA A Report Released Date/Time: Jun 16, 2024 03:51 PM Reporting Lab: [facility] [address] [address] Performing Lab: [facility] [place] [address] [address] [place] CBC AND DIFF (AUTO) LYMPHOCYTE S/100 LEUKOCYTES IN BLOOD BY AUTOMATED COUNT 24.6 14.0 - 42.3 06/22 Specimen Type: BLOOD No comment entered. Ordering Provider: TYLER ARBOLEDA A Report Released Date/Time: Jun 16, 2024 03:51 PM Reporting Lab: PR CN[facility]L WSTRN [address] [address] Performing Lab: PR CNTRL WSTRN [address] [address] [place] CBC AND DIFF (AUTO) MONOCYTES/ 100 LEUKOCYTES IN BLOOD BY AUTOMATED COUNT 8.5 5.1 - 13.7 06/22 Specimen Type: BLOOD No comment entered. Ordering Provider: TYLER ARBOLEDA A Report Released Date/Time: Jun 16, 2024 03:51 PM Reporting Lab: PR CN[facility]L WSTRN [facility]ITALUSE[address] [address] Performing Lab: PR CN[facility]L WSTRN [facility] HOSPITALUSETS [address] [address] [place] CBC AND DIFF (AUTO) EOSINOPHIL S/100 LEUKOCYTES IN BLOOD BY AUTOMATED COUNT 7.0 0.4 - 6.8 06/22 H Specimen Type: BLOOD No comment entered. Ordering Provider: TYLER ARBOLEDA A Report Released Date/Time: Jun 16, 2024 03:51 PM Reporting Lab: [facility]ITALRPRATTVILLE BAP[facility] HOSPITALTRN [address] [address] Performing Lab: PR CN[facility]L WSTRN [facility] HOSPITALUSETS [address] [address] [place] CBC AND DIFF (AUTO) BASOPHILS/ 100 LEUKOCYTES IN BLOOD BY AUTOMATED COUNT 0.8 0.1 - 2.0 06/22 Specimen Type: BLOOD No comment entered. Ordering Provider: TYLER ARBOLEDA A Report Released Date/Time: Jun 16, 2024 03:51 PM Reporting Lab: [facility]ITALRPRATTVIL[facility] HOSPITALTRN [address] [address] Performing Lab: PR CNTRL WSTRN [facility] HOSPITALUSETS [address] [address] [place] CBC AND DIFF (AUTO) NEUTROPHIL S [#/VOLUME] IN BLOOD BY AUTOMATED COUNT 3.80 10*3/uL 2.20 - 7.60 06/22 Specimen Type: BLOOD No comment entered. Ordering Provider: TYLER ARBOLEDA A Report Released Date/Time: Jun 16, 2024 03:51 PM Reporting Lab: [facility]PITALRL WSTRN [facility]ITALUSE[address] [address] Performing Lab: PR CNTRL WSTRN [facility]ITALUSE[address] [address] [place] CBC AND DIFF (AUTO) LYMPHOCYTE S [#/VOLUME] IN BLOOD BY AUTOMATED COUNT 1.59 10*3/uL 1.00 - 3.20 06/22 Specimen Type: BLOOD No comment entered. Ordering Provider: TYLER ARBOLEDA A Report Released Date/Time: Jun 16, 2024 03:51 PM Reporting Lab: [facility]R WSTRN [facility]ITALUSETS [address] [address] Performing Lab: PR CNTRL WSTRN [facility]ITALUSETS [address] [address] [place] CBC AND DIFF (AUTO) EOSINOPHIL S [#/VOLUME] IN BLOOD BY AUTOMATED COUNT 0.45 10*3/uL 0.03 - 0.44 06/22 H Specimen Type: BLOOD No comment entered. Ordering Provider: TYLER ARBOLEDA A Report Released Date/Time: Jun 16, 2024 03:51 PM Reporting Lab: [facility]ITALRL WSTRN [facility]ITALUSETS [address] [address] Performing Lab: [facility]ITALRL WSTRN [facility]ITALUSETS [address] [address] [place] CBC AND DIFF (AUTO) BASOPHILS [#/VOLUME] IN BLOOD BY AUTOMATED COUNT 0.05 10*3/uL 0.01 - 0.13 06/22 Specimen Type: BLOOD No comment entered. Ordering Provider: TYLER ARBOLEDA A Report Released Date/Time: Jun 16, 2024 03:51 PM Reporting Lab: [facility]ITALRL WSTRN [facility]ITALUSETS [address] [address] Performing Lab: [facility]ITALRL WSTRN [facility]ITALUSETS [address] [address] [place] CBC AND DIFF (AUTO) IMMATURE GRANULOCYT ES/100 LEUKOCYTES IN BLOOD BY AUTOMATED COUNT 0.3 0.0 - 0.7 06/22 Specimen Type: BLOOD No comment entered. Ordering Provider: TYLER ARBOLEDA A Report Released Date/Time: Jun 16, 2024 03:51 PM Reporting Lab: [facility]ITALR WSTRN [facility]ITALUSETS [address] [address] Performing Lab: [facility] [address] [address] [place] CBC AND DIFF (AUTO) IMMATURE GRANULOCYT ES [#/VOLUME] IN BLOOD BY AUTOMATED COUNT 0.02 10*3/uL 0.00 - 0.06 06/22 Specimen Type: BLOOD No comment entered. Ordering Provider: TYLER ARBOLEDA A Report Released Date/Time: Jun 16, 2024 03:51 PM Reporting Lab: [facility] [address] [address] Performing Lab: [facility] [address] [address] [place] CBC AND DIFF (AUTO) NUCLEATED ERYTHROCYT ES/100 LEUKOCYTES [RATIO] IN BLOOD BY AUTOMATED COUNT 0.0 0.0 - 0.0 06/22 Specimen Type: BLOOD No comment entered. Ordering Provider: TYLER ARBOLEDA A Report Released Date/Time: Jun 16, 2024 03:51 PM Reporting Lab: [facility] [address] [address] Performing Lab: [facility] [address] [address] [place] CBC AND DIFF (AUTO) NUCLEATED ERYTHROCYT ES [#/VOLUME] IN BLOOD BY AUTOMATED COUNT 0.00 10*3/uL 0.00 - 0.00 06/22 Specimen Type: BLOOD No comment entered. Ordering Provider: TYLER ARBOLEDA A Report Released Date/Time: Jun 16, 2024 03:51 PM Reporting Lab: [facility] [address] [address] Performing Lab: [facility] [address] [address] [place] URINALYS IS COLOR OF URINE Yellow 11/06 Specimen Type: URINE Comment: If Glucose = >500 and Ketones are positive, please alert the Physician. Ordering Provider: TYLER ARBOLEDA A Report Released Date/Time: August 17, 2023 01:25 PM Reporting Lab: [facility] [address] [address] Performing Lab: [facility]YN [facility]ITALUSETS [address] [address] [place] URINALYS IS APPEARANCE OF URINE Turbid 11/06 Specimen Type: URINE Comment: If Glucose = >500 and Ketones are positive, please alert the Physician. Ordering Provider: TYLER ARBOLEDA A Report Released Date/Time: August 17, 2023 01:25 PM Reporting Lab: [facility]YN [facility]ITALUSE[address] [address] Performing Lab: [facility]YN [facility]ITALUSE[address] [address] [place] URINALYS IS GLUCOSE [MASS/VOLU ME] IN URINE NEGATIVE mg/dL 11/06 Specimen Type: URINE Comment: If Glucose = >500 and Ketones are positive, please alert the Physician. Ordering Provider: TYLER ARBOLEDA A Report Released Date/Time: August 17, 2023 01:25 PM Reporting Lab: [facility]ITALREN[facility]N [facility]PITALUSETS [address] [address] Performing Lab: [facility]YN [facility]PITALUSETS [address] [address] [place] URINALYS IS KETONES [MASS/VOLU ME] IN URINE BY TEST STRIP NEGATIVE mg/dL 11/06 Specimen Type: URINE Comment: If Glucose = >500 and Ketones are positive, please alert the Physician. Ordering Provider: TYLER ARBOLEDA A Report Released Date/Time: August 17, 2023 01:25 PM Reporting Lab: [facility]ITALRENCOM[facility]N [facility]PITALUSETS [address] [address] Performing Lab: [facility]YN [facility]ITALUSE[address] [address] [place] URINALYS IS ERYTHROCYT ES [PRESENCE] IN URINE SEDIMENT BY LIGHT MICROSCOPY NEGATIVE mg/dL 11/06 Specimen Type: URINE Comment: If Glucose = >500 and Ketones are positive, please alert the Physician. Ordering Provider: TYLER ARBOLEDA A Report Released Date/Time: August 17, 2023 01:25 PM Reporting Lab: [place] [address] [address] Performing Lab: [address] [address] [place] URINALYS IS PROTEIN [MASS/VOLU ME] IN URINE BY TEST STRIP NEGATIVE mg/dL 11/06 Specimen Type: URINE Comment: If Glucose = >500 and Ketones are positive, please alert the Physician. Ordering Provider: TYLER ARBOLEDA A Report Released Date/Time: August 17, 2023 01:25 PM Reporting Lab: [address] [address] Performing Lab: [address] [address] [place] URINALYS IS NITRITE [PRESENCE] IN URINE NEGATIVE mg/dL 11/06 Specimen Type: URINE Comment: If Glucose = >500 and Ketones are positive, please alert the Physician. Ordering Provider: TYLER ARBOLEDA A Report Released Date/Time: August 17, 2023 01:25 PM Reporting Lab: [address] [address] Performing Lab: [address] [address] [place] URINALYS IS BILIRUBIN. TOTAL [PRESENCE] IN URINE NEGATIVE mg/dL 11/06 Specimen Type: URINE Comment: If Glucose = >500 and Ketones are positive, please alert the Physician. Ordering Provider: TYLER ARBOLEDA A Report Released Date/Time: August 17, 2023 01:25 PM Reporting Lab: [address] [address] Performing Lab: [address] [address] [place] URINALYS IS SPECIFIC GRAVITY OF URINE BY REFRACTOME TRY 1.024 1.016 - 1.022 11/06 H Specimen Type: URINE Comment: If Glucose = >500 and Ketones are positive, please alert the Physician. Ordering Provider: TYLER ARBOLEDA A Report Released Date/Time: August 17, 2023 01:25 PM Reporting Lab: [address] [address] Performing Lab: [address] [address] [place] URINALYS IS PH OF URINE BY TEST STRIP 6.0 5.0 - 9.0 11/06 Specimen Type: URINE Comment: If Glucose = >500 and Ketones are positive, please alert the Physician. Ordering Provider: TYLER ARBOLEDA A Report Released Date/Time: August 17, 2023 01:25 PM Reporting Lab: [address] [address] Performing Lab: [address] [address] [place] URINALYS IS UROBILINOG EN [MASS/VOLU ME] IN URINE BY TEST STRIP <2.0mg/d L <2.0 - 2.0 11/06 Specimen Type: URINE Comment: If Glucose = >500 and Ketones are positive, please alert the Physician. Ordering Provider: TYLER ARBOLEDA A Report Released Date/Time: August 17, 2023 01:25 PM Reporting Lab: [address] [address] Performing Lab: [address] [address] [place] URINALYS IS LEUKOCYTE ESTERASE [PRESENCE] IN URINE BY TEST STRIP NEGATIVE 11/06 Specimen Type: URINE Comment: If Glucose = >500 and Ketones are positive, please alert the Physician. Ordering Provider: TYLER ARBOLEDA A Report Released Date/Time: August 17, 2023 01:25 PM Reporting Lab: [address] [address] Performing Lab: [address] [address] [place] MICROALB UMIN CREATINI NE RATIO PANEL MICROALBUM IN/CREATIN INE [MASS RATIO] IN URINE cancmg/g 0 - 29.9 11/06 Specimen Type: URINE No comment entered. Ordering Provider: TYLER ARBOLEDA A Report Released Date/Time: August 17, 2023 01:25 PM Reporting Lab: [facility] W[facility]N [facility]ITALUSETS [address] [address] Performing Lab: [facility]ITALRL TRN [address] [address] [place] MICROALB UMIN CREATINI NE RATIO PANEL MICROALBUM IN [MASS/VOLU ME] IN URINE < 0.5mg/dL 11/06 Specimen Type: URINE No comment entered. Ordering Provider: TYLER ARBOLEDA A Report Released Date/Time: August 17, 2023 01:25 PM Reporting Lab: [facility]RL TR[facility] [address] [address] Performing Lab: [facility] [address] [address] [place] MICROALB UMIN CREATINI NE RATIO PANEL CREATININE [MASS/VOLU ME] IN URINE 128.85 mg/dL 11/06 Specimen Type: URINE No comment entered. Ordering Provider: TYLER ARBOLEDA A Report Released Date/Time: August 17, 2023 01:25 PM Reporting Lab: [facility]RL TR[facility] [address] [address] Performing Lab: [facility]RL [facility] [address] [address] [place] LIVER FUNCTION PROTEIN [MASS/VOLU ME] IN SERUM OR PLASMA 6.4 g/dL 6.0 - 8.3 11/06 Specimen Type: SERUM No comment entered. Ordering Provider: TYLER ARBOLEDA A Report Released Date/Time: August 17, 2023 01:25 PM Reporting Lab: [facility]L WSTRN [facility]ITALUSE[address] [address] Performing Lab: [facility]ITALRL TRN [facility]ITALUSE[address] [address] [place] LIVER FUNCTION ALBUMIN [MASS/VOLU ME] IN SERUM OR PLASMA 3.3 g/dL 3.5 - 5.0 11/06 L Specimen Type: SERUM No comment entered. Ordering Provider: TYLER ARBOLEDA A Report Released Date/Time: August 17, 2023 01:25 PM Reporting Lab: [facility]RENCOM[facility]N [address] [address] Performing Lab: [facility] [address] [address] [place] FUN[place] ALKALINE PHOSPHATAS E [ENZYMATIC ACTIVITY/V OLUME] IN SERUM OR PLASMA 88 U/L 40 - 150 11/06 Specimen Type: SERUM No comment entered. Ordering Provider: TYLER ARBOLEDA A Report Released Date/Time: August 17, 2023 01:25 PM Reporting Lab: [address] [address] Performing Lab: [address] [address] [facility] ASPARTATE AMINOTRANS FERASE [ENZYMATIC ACTIVITY/V OLUME] IN SERUM OR PLASMA 16 U/L 5 - 34 11/06 Specimen Type: SERUM No comment entered. Ordering Provider: TYLER ARBOLEDA A Report Released Date/Time: August 17, 2023 01:25 PM Reporting Lab: [facility] [address] [address] Performing Lab: [address] [address] [facility] ALANINE AMINOTRANS FERASE [ENZYMATIC ACTIVITY/V OLUME] IN SERUM OR PLASMA 24 U/L 11/06 Specimen Type: SERUM No comment entered. Ordering Provider: TYLER ARBOLEDA A Report Released Date/Time: August 17, 2023 01:25 PM Reporting Lab: [facility] [address] [address] Performing Lab: [address] [address] [facility] BILIRUBIN. TOTAL [MASS/VOLU ME] IN SERUM OR PLASMA 0.4 mg/dL 0.2 - 1.2 11/06 Specimen Type: SERUM No comment entered. Ordering Provider: TYLER ARBOLEDA A Report Released Date/Time: August 17, 2023 01:25 PM Reporting Lab: [facility] [address] [facility] [address] Performing Lab: [facility] [address] [address] [place] LIPID PANEL, NON FASTING CHOLESTERO L [MASS/VOLU ME] IN SERUM OR PLASMA 134 mg/dL 11/06 Specimen Type: SERUM No comment entered. Ordering Provider: TYLER ARBOLEDA A Report Released Date/Time: August 17, 2023 01:25 PM Reporting Lab: [facility] [address] [address] Performing Lab: [facility] [address] [address] [place] LIPID PANEL, NON FASTING TRIGLYCERI DE [MASS/VOLU ME] IN SERUM OR PLASMA 235 mg/dL 0 - 150 11/06 H Specimen Type: SERUM No comment entered. Ordering Provider: TYLER ARBOLEDA A Report Released Date/Time: August 17, 2023 01:25 PM Reporting Lab: [facility] [address] [address] Performing Lab: [facility] [address] [address] [place] LIPID PANEL, NON FASTING CHOLESTERO L IN LDL [MASS/VOLU ME] IN SERUM OR PLASMA BY SUMMER Paul 41 mg/dL 0 - 129 11/06 Specimen Type: SERUM No comment entered. Ordering Provider: TYLER ARBOLEDA A Report Released Date/Time: August 17, 2023 01:25 PM Reporting Lab: [facility] [address] [address] Performing Lab: [facility] [address] [address] [place] LIPID PANEL, NON FASTING CHOLESTERO L.TOTAL/CH OLESTEROL IN HDL [MASS RATIO] IN SERUM OR PLASMA 2.9 11/06 Specimen Type: SERUM No comment entered. Ordering Provider: TYLER ARBOLEDA A Report Released Date/Time: August 17, 2023 01:25 PM Reporting Lab: [facility] [address] [facility] [address] Performing Lab: [facility] [address] [facility] [address] [place] LIPID PANEL, NON FASTING CHOLESTERO L IN HDL [MASS/VOLU ME] IN SERUM OR PLASMA 46 mg/dL 40 - 60 11/06 Specimen Type: SERUM No comment entered. Ordering Provider: TYLER ARBOLEDA A Report Released Date/Time: August 17, 2023 01:25 PM Reporting Lab: [facility] [address] [facility] [address] Performing Lab: [facility] [address] [facility] [address] [facility] Vital Signs Combined list of inpatient and outpatient Vital Signs from Department of Defense and Veterans Affairs, ranging from 12 months to all on record, depending upon the facility. Vital Sign Value Date Comments Source SYSTOLIC BLOOD PRESSURE 162 06/23/19 25 13:04:41 [facility] DIASTOLIC BLOOD PRESSURE 83 025 13:04:41 [facility] PULSE OXIMETRY 97 06/22/2024 13:04:41 [facility] WEIGHT 190 06/22/2024 13:04:41 [facility] BMI 27 kg/m2 06/22/2024 13:04:41 [facility] PULSE 84 06/22/2024 13:04:41 [facility] SYSTOLIC BLOOD PRESSURE 109 02/26/20 13:11:41 [facility] DIASTOLIC BLOOD PRESSURE 58 024 13:11:41 [facility] PULSE OXIMETRY 94 02/26/2024 13:11:41 [facility] WEIGHT 183.2 02/26/2024 13:11:41 [facility] BMI 26 kg/m2 02/26/2024 13:11:41 [facility] TEMPERATURE 97.2 02/26/2024 13:11:41 [facility] PULSE 56 02/26/2024 13:11:41 [facility] SYSTOLIC BLOOD PRESSURE 159 09/10/19 24 11:32:13 [facility] DIASTOLIC BLOOD PRESSURE 63 024 11:32:13 [facility] PULSE OXIMETRY 97 09/10/2023 11:32:13 [facility] PAIN 0 09/10/2023 11:32:13 [facility] PULSE 54 09/10/2023 11:32:13 [facility] Encounters Combined list of: 1) Encounters from Department of Veterans Affairs facilities going backup to the last 18 months, not all [place] inpatient encounters are included; 2) Encounters from the Department of Defense facilities going backup to 280 months. Location Location Details Encounter Type Encounter Number Reason For Visit Attending Provider ADM Date DC Date Status Disposition Source [facility] Encounter [id number] 03/25 [facility] OFF/OP EST AUGUST X REQ PHY/QHP [id number] Diagnos is: ICD-10- CM Z23 Encount er for immuniz parveen SKIPRoseJIMMY 03/25 [facility] OFFICE O/P EST MOD 30-39 MIN [id number] Diagnos is: ICD-10- CM F43.10 Post-tr aumatic stress disorde r, unspeci fied GAGANDEEP EDWARD RRIE N 03/25 [facility] Outpatient Encounter [id number] 03/25 [facility] Outpatient Encounter [id number] 03/31 [facility] Encounter [id number] 04/16 [facility] Outpatient Encounter [id number] 04/[address] HEARING AID REPAIR/MOD IFYING [id number] Diagnos is: ICD-10- CM Z46.1 Encount er for fitting and adjustm ent of hearing aid CA BLAKE 05/[address] [place] [address] HEARING AID FITTING/CH ECKING [id number] Diagnos is: ICD-10- CM Z46.1 Encount er for fitting and adjustm ent of hearing aid CA BLAKE A 05/[address] [place] [address] Jaylon [facility] OFFICE O/P EST MOD 30 MIN [id number] [id number] Diagnos is: ICD-10- CM L30.8 Other specifi ed dermati tis JANESSA MERRITT A 05/[address] HEARING AID REPAIR/MOD IFYING [id number] Diagnos is: ICD-10- CM Z46.1 Encount er for fitting and adjustm ent of hearing aid SANDRO CARRERO Y 05/[address] [place] [address] HEARING AID FITTING/CH ECKING [id number] [id number] Diagnos is: ICD-10- CM Z46.1 Encount er for fitting and adjustm ent of hearing aid SANDRO CARRERO Y 06/[address] [place] [address] HC PRO PHONE CALL 11-20 MIN [id number] Diagnos is: ICD-10- CM R68.89 Other general symptom s and signs MARILEE ARIAS 06/22 [facility] Outpatient Encounter [id number] 06/25 [facility] OFFICE O/P EST LOW 20 MIN [id number] Diagnos is: ICD-10- CM J44.9 Chronic obstruc tive pulmona ry disease , unspeci fied KRISTINE MORROW 06/29 [facility] Outpatient Encounter [id number] 06/29 [facility] [address] Outpatient Encounter [id number] 07/[address] [place] [address] [facility] Outpatient Encounter [id number] 07/17 [facility] Outpatient Encounter [id number] 08/05 [facility] Outpatient Encounter [id number] 08/06 [facility] OFFICE O/P EST HI 40 MIN [id number] [id number] Diagnos is: ICD-10- CM J96.11 Chronic respira tory failure with hypoxia ERLINDA ARBOLEDA A 08/06 [facility] [place] [facility] Outpatient Encounter [id number] 08/06 [facility] ELECTROCAR DIOGRAM REPORT [id number] Diagnos is: ICD-10- CM Z13.6 Encount er for screeni ng for cardiov ascular disorde rs TINO LABOY 08/06 [place] [facility] ELECTROCAR DIOGRAM TRACING [id number] SHI GUERRERO 08/06 [facility] Outpatient Encounter [id number] Diagnos is: ICD-10- CM I48.0 Paroxys mal atrial fibrill ation HERNANDEZ GEE E 08/10 [facility] QNHP OL DIG ASSMT&MGMT 11-20 [id number] Diagnos is: ICD-10- CM I48.0 Paroxys mal atrial fibrill ation GUNJAN BRONSON 08/10 [facility] Outpatient Encounter [id number] 08/10 [facility] OFF/OP EST MAY X REQ PHY/QHP [id number] Diagnos is: ICD-10- CM Z71.89 Other specifi ed family life counselor ing JENNIFER MOORE 08/13 [facility] En[facility] [id number] 08/14 [facility] TTE W/DOPPLER COMPLETE [id number] [id number] Diagnos is: ICD-10- CM I48.0 Paroxys mal atrial fibrill ation PEDRO CHISHOLM 08/17 [facility] OFFICE O/P EST LOW 20 MIN [id number] Diagnos is: ICD-10- CM I48.0 Paroxys mal atrial fibrill ation BENOIT CATIEARABELLA 08/17 [place] [facility] Outpatient Encounter [id number] 08/24 [facility] UNLISTED SPEC DERM SVC/PX [id number] [id number] Diagnos is: ICD-10- CM Z13.89 Encount er for screeni ng for other disorde r Sandeep IYER 08/24 [facility] OFF[facility] O/P EST SF 10 MIN [id number] Diagnos is: ICD-10- CM L92.0 Granulo JORGE L Huang PH J 08[facility]24 [facility] En[facility] [id number] 08/24 [facility] Out[facility] Encounter [id number] 08/25 [facility] Out[facility] Encounter [id number] [id number] 08/25 [facility] Outpatient Encounter [id number] [id number] 09/08 [facility] TARGETED CASE MANAGEMENT [id number] Shaila ROMO 09/08 [facility] ODONTOPLAS TY 1-2 TEETH [id number] [id number] Diagnos is: ICD-10- CM K08.531 Fractur ed dental restora tive materia l with loss of materia l ELDER VALLEJO AM 09/09 [facility] En[facility] [id number] 09/[address] [facility] [place] PSYCH DIAGNOSTIC EVALUATION [id number] [id number] Diagnos is: ICD-10- CM F43.12 Post-tr aumatic stress disorde r, ROHAN Lawrence 09/22 [place] [facility] Outpatient Encounter [id number] 09/25 [facility] QNHP OL DIG ASSMT&MGMT 5-10 [id number] Diagnos is: ICD-10- CM I48.20 Chronic atrial fibrill ation, unspeci ROHAN Benedict 09/25 [facility] Outpatient Encounter [id number] 09/29 [facility] INTRAORAL FULL IMAGE SERIES [id number] Diagnos is: ICD-10- CM K03.6 Deposit s [accret ions] on teeth MARCELINA CARREON 10/01 [facility] Outpatient Encounter [id number] 10/16 [facility] [place] [place] [place] OFFICE O/P EST LOW 20 MIN [id number] [id number] Diagnos is: ICD-10- CM J96.11 Chronic respira tory failure with hypoxia ERLINDA ARBOLEDA A 10/29 [place] HEARING AID REPAIR/MOD IFYING [id number] Diagnos is: ICD-10- CM Z46.1 Encount er for fitting and adjustm ent of hearing aid JABIER GUY 11/06 [place] [facility] Outpatient Encounter [id number] 11/12 [facility] [place] OFF/OP CONSLTJ NEW/[place] HI 55 [id number] [id number] Diagnos is: ICD-10- CM F43.10 Post-tr aumatic stress disorde r, unspeci hector HERNANDEZ,ST EVEN G 11/12 [place] [facility] COMPRE OPH EXAM NEW PT 1/> [id number] [id number] Diagnos is: ICD-10- CM 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 11/23 [facility] Out[facility] Encounter [id number] 11/23 [facility] PSYCH DIAGNOSTIC EVALUATION [id number] [id number] Diagnos is: ICD-10- CM R41.3 Other amnesia FEARING,NH CAROLIN A 11/30 [facility] Out[facility] Encounter [id number] 1.12/01 [facility] Outpatient Encounter [id number] 1.12/03 [facility] Out[facility] Encounter [id number]/06 [facility] PSYCL/NR[place] Y[place] T[place] [id number] [id number] Diagnos is: ICD-10- CM R41.3 Other amnesia FEARING,BLAIRE Rose 12/08 [facility] [place] Outpatient Encounter [id number] [id number] 12/24 [place] [facility] Outpatient Encounter [id number] 1.12/24 [facility] Out[facility] Encounter [id number] 1.12/28 [facility] EXTENDED VISUAL FIELD XM [id number] 1. 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 FEE [id number] [id number] Diagnos is: ICD-10- CM F43.10 Post-tr aumatic stress disorde r, unspeci fied SHOREAGAN,O LUBOWALE 01/20 [facility] OFFICE O/P EST LOW 20 MIN [id number] Diagnos is: ICD-10- CM F43.10 Post-tr aumatic stress disorde r, unspeci fied HERNANDEZ,ST EVEN G 01/20 [facility] [place] CONFORMITY EVALUATION 1. Diagnos is: ICD-10- CM Z46.1 Encount er for fitting and adjustm ent of hearing aid Shaila BARDALES 02/04 [facility] [place] INTRM OPH EXAM EST PATIENT 1. 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 OFFICE O/P EST MOD 30 MIN [id number]. [id number] Diagnos is: ICD-10- CM F03.B4 Unspeci fied dementi a, moderat e, with anxiety ROBLESDA VID A 02/25 [facility] ADMN SARSCOV2 VACC 1 DOSE [id number] [id number] ROBLESDA VID A 02/25 [facility] Outpatient Encounter [id number] 03/17 [facility] Out[facility] Encounter [id number] 03/30 [facility] HEARING AID REPAIR/MOD IFYING [id number] [id number] Diagnos is: ICD-10- CM Z46.1 Encount er for fitting and adjustm ent of hearing aid MILLIE OVALLES 04/15 [facility] Out[facility] Encounter [id number] [id number]/20 [facility] Out[facility] Encounter [id number]/22 [facility] NQHP OL DIG ASSMT&MGMT 5-10 [id number] [id number] Diagnos is: ICD-10- CM Z79.01 intermediate (curren t) use of anticoa gulanTATI Rodríguez 04/23 [facility] Out[facility] Encounter [id number] [id number] 04/23 [facility] Outpatient Encounter [id number] [id number] 04/26 [facility] [place] FEE [id number] [id number] Diagnos is: ICD-10- CM F43.10 Post-tr aumatic stress disorde r, unspeci fied Sandeep IYER 04/28 [facility] OFFICE O/P EST LOW 20 MIN [id number] [id number] Diagnos is: ICD-10- CM F43.10 Post-tr aumatic stress disorde r, unspeci fied MARY,ST EVEN G 04/28 [facility] [place] [facility] Outpatient Encounter [id number] 05/11 [facility] [place] HEARING AID FITTING/CH ECKING [id number] [id number] Diagnos is: ICD-10- CM Z46.1 Encount er for fitting and adjustm ent of hearing aid JABIER GUY 05/11 [facility] [place] [facility] FEE 57427-6.63 [id number] Diagnos is: ICD-10- CM F43.10 Post-tr aumatic stress disorde r, unspeci fied SHIREEN,O FAVIOLA 05/26 [facility] OFFICE O/P EST LOW 20 MIN [id number] [id number] Diagnos is: ICD-10- CM F43.10 Post-tr aumatic stress disorde r, unspeci fied MARY,ST EVEN G 05/26 [facility] [place] Outpatient Encounter [id number] 06/08 [facility] [place] Outpatient Encounter [id number] 06[facility]10 [facility] [place] [place] Outpatient Encounter [id number] 06/18 [facility] [place] OFFICE O/P EST HI 40 MIN [id number] [id number] Diagnos is: ICD-10- CM F03.B4 Unspeci fied dementi a, moderat e, with anxiety ERLINDA ARBOLEDA A 06/22 [facility] [place] [facility] [place] NQHP OL DIG ASSMT&MGMT 5-10 [id number] [id number] Diagnos is: ICD-10- CM Z04.89 Encount er for examina tion and observa tion for oth reasons SALVADOR RAWLS 06/24 [facility] [place] [place] Outpatient Encounter [id number] 07/22 [facility] [place] [place] OFFICE O/P EST HI 40 MIN [id number] [id number] Diagnos is: ICD-10- CM H40.143 2 Capslr glaucom a w/pseud xf lens, bilater al, moderat e stage MILLER,LACE Y J 07/27 [facility] [place] [place] NQHP OL DIG ASSMT&MGMT 5-10 [id number] [id number] Diagnos is: ICD-10- CM Z79.01 intermediate manager (curren t) use of anticoa gulants TATI YU 07/27 [facility] [place] [facility] Outpatient Encounter [id number] 07/30 [place] [facility] [place] [facility] Social History Combined list of available smoking, tobacco, and other social history from Department [facility] and [facility] facilities. Social History Type Response Date Comment Sour e Tobacco smoking status [facility] VA-TOBACCO NEVER USED 08/06/2023 [facility] [place] [facility] History of tobacco use VA-TOBACCO NEVER USED 06/30[facility]2023 [facility] History of tobacco use VA-TOBACCO NEVER USED 07/04/2022 [facility] History of tobacco use VA-TOBACCO FORMER USER 10/11/2020 [facility] History of tobacco use VA-TOBACCO QUIT 15 YRS OR MORE 08/03/2019 [facility] History of tobacco use VA-TOBACCO QUIT 15 YRS OR MORE 06/03/2018 [facility] History of tobacco use QUIT TOBACCO >7 YEARS AGO 11/13/2017 [facility] History of tobacco use LIFETIME NON-USER OF TOBACCO 12/25/2016 [facility] History of tobacco use QUIT TOBACCO >7 YEARS AGO 01/25/2016 [facility] History of tobacco use CURRENT TOBACCO USER 12/14/2014 [facility] History of tobacco use QUIT TOBACCO >7 YEARS AGO 01/09/2010 [facility] History of tobacco use QUIT TOBACCO >7 YEARS AGO 01/10/2009 [facility] History of tobacco use QUIT TOBACCO >7 YEARS AGO 02/02/2008 [facility] Plan of Care List of future care activities from [facility] facilities. Additional future care activities may be listed in the Assessment and Plan section. Date/Time Care Activity Care Activity Detail Facili ty 09/14/2024 AMBULATORY - MEDICINE AMBULATORY - MEDICI [facility] Advance Directives List of completed, amended, or rescinded Advance Directives on record at [facility] facilities. An actual copy of the Directive is not included. Date Advance Directive Provider Source 08/25[facility]2023 [facility]
--- OUTSIDE RECORDS SUMMARY | 2024-09-01 14:56 | XMS_ITS | Encounter Summary ---
Author Name [place] Address [address] [place] [address] Care Team Providers Care Operations Systems Specialist Name Role Phone ERNESTO ARBOLEDA Primary Care [...] PART A August 12, 2008 PART A [id number] Dawson YOUNGER PATIENT MEDICARE (WNR) MEDICARE (M) PART B August 12, 2008 PART B [id number] Dawson YOUNGER PATIENT MEDICARE (WNR) MEDICARE (M) PART B August 12, 2008 PART B [id number] Dawson YOUNGER PATIENT MEDICARE (WNR) MEDICARE (M) PART A August 12, 2008 PART A [id number] [id number] Dawson YOUNGER PATIENT MEDICARE (WNR) MEDICARE (M) PART A August 12, 2008 PART A [id number] [phone] [id number] Dawson YOUNGER PATIENT MEDICARE (WNR) MEDICARE (M) PART B August 12, 2008 PART B [id number] Dawson YOUNGER PATIENT MEDICARE (WNR) MEDICARE (M) PART B August 12, 2008 PART B [id number] [facility] [phone] Dawson YOUNGER PATIENT MEDICARE (WNR) MEDICARE (M) PART A August 12, 2008 PART A [id number] [facility] Dawson YOUNGER PATIENT MEDICARE (WNR) MEDICARE (M) PART A August 12, 2008 PART A [id number] [facility] Dawson YOUNGER PATIENT MEDICARE (WNR) MEDICARE (M) PART B August 12, 2008 PART B [id number] [facility] Dawson YOUNGER PATIENT MEDICARE PART D (WNR) PRESCRIPT ION PART D Apr 14, 2015 PART D [id number] Dawson YOUNGER PATIENT UNICARE PREFERRED PROVIDER ORGANIZAT ION (PPO) [facility] IN[facility] N August 12, 2008 [id number] [id number] [phone] Dawson YOUNGER PATIENT UNICARE MEDICARE SUPPLEMEN FARHAD WELLP OINT August 12, 2008 [id number] [id number] [phone] Dawson YOUNGER PATIENT UNICARE-G. I.C. MEDICAL EXPENSE (OPT/PROF ) [facility] INDEM N August 12, 2008 [id number] Dawson YOUNGER PATIENT WELLPOINT MEDICAL EXPENSE (OPT/PROF ) [facility] IN[facility]M N August 12, 2008 [id number] Dawson YOUNGER PATIENT Selected Encounter This section includes the information on record at [place] for the Encounter. Date/Time Encounter Type Encounter Description Reason Provider Source Sep 23, 2023 09:00 AM PSYCH DIAGNOSTIC EVALUATION [facility] ICD-10-CM F43.12 Post-traumati c stress disorder, chronic RG SCALES DARCIE Farrukh JEREMIE Encounter Template Text not used by [place] Assessments - Encounter Diagnoses This section includes the primary and secondary diagnoses documented for the Encounter. Date/Time Primary/Secondary Diagnosis Diagnosis Name Provider Source Sep 23, 2023 10:34 AM PRIMARY Post-traumatic stress disorder, chronic EMMANUEL SCALES [place] Sep 23, 2023 10:34 AM SECONDARY Oth symptoms and signs w cognitive functions and awareness EMMANUEL SCALES [place] Plan of Treatment: Future Appointments (+ 6 months) and Future Tests (+/- 45 days) The Plan of Treatment section includes future care activities for the patient [facility] [place] [facility] This section includes future appointments and future orders which are active, pending or scheduled. Future Appointments This section includes appointments that were scheduled to occur 6 months from the date of the Encounter, up to a maximum of 20 appointments. The data comes from all [place] treatment facilities. Appointment Date/Time Appointment Type Appointme nt Facility Name Oct 02, 2023 11:00 AM AMBULATORY - NONE [place] [facility] [place] [facility] Oct 30, 2023 02:30 PM AMBULATORY - MEDICINE [facility] Nov 07, 2023 01:00 PM AMBULATORY - REHAB MEDICIN E [place] Nov 13, 2023 10:00 AM AMBULATORY - PSYCHIATRY [place] [facility] [place] [facility] Nov 13, 2023 02:00 PM AMBULATORY - MEDICINE [place] [facility] [place] [facility] Nov 14, 2023 01:00 PM AMBULATORY - MEDICINE [place] [facility] [place] [facility] Nov 14, 2023 02:00 PM AMBULATORY - MEDICINE [place] [facility] [place] [facility] Dec 01, 2023 08:30 AM AMBULATORY - PSYCHIATRY [facility] [place] [facility] Dec 09, 2023 03:00 PM AMBULATORY - PSYCHIATRY [facility] [place] [facility] Dec 25, 2023 11:00 AM AMBULATORY - PSYCHIATRY [facility] [place] [facility] Jan 01, 2024 01:30 PM AMBULATORY - MEDICINE [place] [facility] [place] [facility] Jan 01, 2024 02:00 PM AMBULATORY - MEDICINE [place] [facility] [place] [facility] Jan 02, 2024 02:00 PM AMBULATORY - REHAB MEDICIN E [facility] [place] [facility] Jan 21, 2024 02:30 PM AMBULATORY - PSYCHIATRY [facility] [place] [facility] Jan 21, 2024 02:31 PM AMBULATORY - PSYCHIATRY [facility] [place] [facility] Feb 05, 2024 11:00 AM AMBULATORY - REHAB MEDICIN E [facility] [place] [facility] Feb 05, 2024 01:30 PM AMBULATORY - MEDICINE [facility] [place] [facility] Feb 26, 2024 01:00 PM [facility] Advance Directives: All historical and current Section Date Range: From patient's date of to the date document was created. This section includes ALL of a patient's completed or amended [place] Advance and Rescinded Directives. The entries below indicate that a directive exists for the patient, but an actual copy is not included with this document. The data comes from all [place] facilities. Date Advance Directives Provider Source August [...] ENTRY DATE: SEP 23, 2023@09:00:03 AUTHOR: ROHAN SCALESIGNER: URGENCY: STATUS: COMPLETED INFORMED CONSENT TO PARTICIPATE IN ASSESSMENT: At beginning of session reviewed rights and limits of confidentiality, mandatory reporting situations, duty to warn and protect, [place] Warning, (if treatment team finds patient to be an acute danger to himself or others, that this information could be relayed to a court of law and presented to a airfield manager), and DOD access for 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 Provided Suicide Prevention Hotline number, and other contact numbers as necessary. Uniform Outpatient Mental Health Assessment I. IDENTIFYING INFORMATION: SHANICE YOUNGER August [id number] SERVICE CONNECTED % - 100 MARITAL STATUS - Referral source: PCP Present at time of intake: [place] [X] Family member [ ] Supportive person(s) Name: Language Preference:Mauritian Language Spoken:Mauritian II. PRESENTING SITUATION: A. What brings you into Mental Health at this time: Was seeing a prescriber for PTSD. He has been in treatment for PTSD for 18 years, he reports, and feels it's pretty well controlled on medications. He has been taking his antidepressant but has run out of the medication his prescriber in [place] had put him on (Quetiapine), so he's [...] ] No [X] If yes, please identify Mid[place]ian's primary and secondary substances of choice: ALCOHOL [place]ian reports that he currently drinks one glass [...] day at his height but quite in 1985 about 40 years ago. IV: PERSONAL HISTORY/INFORMATION: A. 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 I. 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 J. Do you have a legal history (incarcerations, probation, parole, divorce, child custody issues): in 1979 K. What is your level of sabianist or spiritual fulfillment: confucianist, goes to [employer] L. How do you culturally identify? Can you anticipate any particular cultural on treatment? Grandparents came from [facility] and other grandparents from [place] M. Is there anybody you would like [...] ARBOLEDA Exposure to potentially hazardous s 08/08/2023 ARBOLEDA,SARAH Glaucoma H40.9 08/08/2023 ERNESOT ARBOLEDA A Insomnia G47.00 08/08/2023 ERNESTO ARBOLEDA A Bilateral hearing loss R69. 08/08/2023 ERNESTO ARBOLEDA A GERD - Gastro-Esophageal Reflux Dis 08/08/2023 ERNESTO ARBOLEDA Other medical problems not listed above: suki [...] DIAGNOSES: PTSD, chronic VII: SUMMARY AND IMPRESSIONS: [place]ian is an 78 year old , , 100% [place] looking to transfer his PTSD treatment from [place] to [facility] after relocating. He is only interested in continuing with a prescriber and is already scheduled with the psychiatrist for next week to ensure continuity of medications. He feels that his PTSD has been relatively well-controlled with medicaiton and is not interested in psychotherapy. In addition to this, he expressed concerns about his memory and recent concerns about balance and falling. He shared with teletypewriter operator an acute injury where he injured his back about two weeks ago and did not go to the ER to be evaluated. Dinker will place neuropsychological consult to assess his cognition and advised him to stop to be triaged by the nurse on his way out to assess his back injury. VIII: NEXT STEPS: A: How can we work to meet your goals: already scheduled with psychiatrist--appt is next week. Neuropsychological consult to be entered to assess cognition/possible presence of neurocognitive disorder. /gurwindre/ ROHAN SCALES CLINICAL PSYCHOLOGIST Signed: 09/23/2023 10:37 ROHAN SCALES [place]
--- OUTSIDE RECORDS SUMMARY | 2024-09-01 14:56 | XMS_ITS ---
Author Name [facility] [place] Address [address] [place] [address] Care Team Providers Care Drivematic Machine Operator Name Role Phone ERNESTO ARBOLEDA [...] PART A August 12, 2008 PART A [id number] [phone] Dawson YOUNGER PATIENT MEDICARE (WNR) MEDICARE (M) PART B August 12, 2008 PART B [id number] Dawson YOUNGER PATIENT MEDICARE (WNR) MEDICARE (M) PART A August 12, 2008 PART A [id number] [phone] Dawson YOUNGER PATIENT MEDICARE (WNR) MEDICARE (M) PART B August 12, 2008 PART B [id number] Dawson YOUNGER PATIENT MEDICARE (WNR) MEDICARE (M) PART A August 12, 2008 PART A [id number] Dawson YOUNGER PATIENT MEDICARE (WNR) MEDICARE (M) PART B August 12, 2008 PART B [id number] [phone] Dawson YOUNGER PATIENT MEDICARE (WNR) MEDICARE (M) PART B August 12, 2008 PART B [id number] [phone] Dawson YOUNGER PATIENT MEDICARE (WNR) MEDICARE (M) PART A August 12, 2008 PART A [id number] [phone] Dawson YOUNGER PATIENT MEDICARE (WNR) MEDICARE (M) PART A August 12, 2008 PART A [id number] [phone] Dawson YOUNGER PATIENT MEDICARE (WNR) MEDICARE (M) PART B August 12, 2008 PART B [id number] Dawson YOUNGER PATIENT MEDICARE PART D (WNR) PRESCRIPT ION PART D Apr 14, 2015 PART D [id number] [phone] Dawson YOUNGER PATIENT UNICARE PREFERRED PROVIDER ORGANIZAT ION (PPO) [facility] INDEM N August 12, 2008 [id number] Dawson YOUNGER PATIENT UNICARE MEDICARE [facility] WELLP [facility]INT August 12, 2008 [id number] [phone] Dawson YOUNGER PATIENT UNICARE-G. I.C. MEDICAL EXPENSE (OPT/PROF ) [facility] INDEM N August 12, 2008 [id number] [phone] Dawson YOUNGER PATIENT WELLPOINT MEDICAL EXPENSE (OPT/PROF ) [facility] INDEM N August 12, 2008 [id number] Dawson YOUNGER PATIENT Selected Encounter This section includes the information on record at [place] for the Encounter. Date/Time Encounter Type Encounter Description Reason Pro vider Source Apr 23, 2024 03:02 PM Outpatient Encounter COMMUNITY CARE CONSULT IHE Encounter Template Text not used by [place] Plan of Treatment: Future Appointments (+ 6 months) and Future Tests (+/- 45 days) The Plan of Treatment section includes future care activities for the patient from all [place] [facility]. This section includes future appointments and future orders which are active, pending or scheduled. Future Appointments This section includes appointments that were scheduled to occur 6 months from the date of the Encounter, up to a maximum of 20 appointments. The data comes from all [place] treatment facilities. Appointment Date/Time Appointment Type Appointme nt Facility Name Apr 28, 2024 01:00 PM AMBULATORY - PSYCHIATRY [facility] [place] [facility] Apr 28, 2024 01:01 PM AMBULATORY - PSYCHIATRY [facility] [place] [facility] May 11, 2024 01:30 PM AMBULATORY - REHAB MEDICIN E [facility] [place] [facility] May 26, 2024 03:00 PM AMBULATORY - PSYCHIATRY [facility] [place] [facility] May 26, 2024 03:01 PM AMBULATORY - PSYCHIATRY [facility] [place] [facility] Jun 22, 2024 01:00 PM [facility]AT[facility] Jun 22, 2024 03:00 PM AMBULATORY - NONE [facility] [place] [facility] Jul 27, 2024 10:30 AM AMBULATORY - MEDICINE [facility] [place] [facility] Sep 14, 2024 02:00 PM AMBULATORY - MEDICINE [place] [facility] [place] [facility] Sep 14, 2024 02:30 PM AMBULATORY - MEDICINE [place] [facility] [place] [facility] Oct 19, 2024 01:00 PM AMBULATORY - MEDICINE [place] [facility] [place] [facility] Social History: Smoking Status (Most current) and Tobacco Use (All prior to encounter date) This section includes the most current, and the historical, smoking and tobacco- related health factors from the VA facility where the Encounter took place. Current Smoking Status This section includes the most current smoking, or tobacco-related health factor, from the [place] facility where the Encounter took place. Date/Time Current Smoking Status Brendan esquivel Aug 06, 2023 01:17 PM VA-TOBACCO NEVER USED [facility] [place] [facility] Advance Directives: All historical and current Section Date Range: From patient's date of to the date document was created. This section includes ALL of a patient's completed or amended [place] Advance and Rescinded Directives. The entries below indicate that a directive exists for the patient, but an actual copy is not included with this document. The data comes from all [place] facilities. Date Advance Directives Provider Source August 25, 2023 ADVANCE DIRECTIVE MICHELLE LEVINE [facility] Radiology Reports: +/- 30 days of the [...] the Encounter. The data comes from all [place] treatment facilities. Date/Time Radiology Report Provider Source Apr 22, 2024 10:00 AM OUTSIDE MRI BRAIN (C-) CPT 52353: YOUNGERSHANICE GISSELLEKARINA [id number] -[id number] M Exm Date: APR 22, 2024@10:00 Req Phys: ERNESTO ARBOLEDA Loc: [facility] PACT 1 SLOT FLOORPERSON (Req'g Loc) Img Loc: OUTSIDE GENERAL RADIOLOGY Service: Unknown (Case [id number] COMPLETE) OUTSIDE MRI BRAIN (C-) CPT 72796 (RAD Detailed) CPT:11506 Reason for Study: Dementia. study requested by neurology Clinical History: Report Status: Electronically Filed Date Reported: APR 22, 2024 Report: Community care exam; see CPRS/JLV for outside radiology report/results Impression: Community care exam; see CPRS/JLV for outside radiology report/results Primary Diagnostic Code: VERIFIED BY: / *ELECTRONICALLY FILED* [facility] Encounter Notes: All associated encounter notes This [...] is requesting a Continuation of care consult: [facility] [address] [place] [address] [place] [address] appt on 04/20/2024 @ 2PM 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 Established with COLUMBA PHAM. CCP missed end date of previous consult. alert to PACT-please enter new CC pulm consult if in agreement. 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 Consult held for provider review and signature if appropriate. /charlotte STAHL REGISTERED NURSE Signed: 04/23/2024 15:24 MIRNA ALATORRE [facility]
--- OUTSIDE RECORDS SUMMARY | 2024-09-01 14:56 | XMS_ITS ---
Author Name [facility] [place] Address [address] [place] [address] Care Team Providers Care Ross Carrier Driver Name Role Phone ERNESTO ARBOLEDA Primary Care [...] PART A August 12, 2008 PART A [id number] [phone] Dawson YOUNGER PATIENT MEDICARE (WNR) MEDICARE (M) PART B August 12, 2008 PART B [id number] [phone] Dawson YOUNGER PATIENT MEDICARE (WNR) MEDICARE (M) PART A August 12, 2008 PART A [id number] [phone] Dawson YOUNGER PATIENT MEDICARE (WNR) MEDICARE (M) PART B August 12, 2008 PART B [id number] [phone] Dawson YOUNGER PATIENT MEDICARE (WNR) MEDICARE (M) PART B August 12, 2008 PART B [id number] Dawson YOUNGER PATIENT MEDICARE (WNR) MEDICARE (M) PART A August 12, 2008 PART A [id number] [phone] [id number] Dawson YOUNGER PATIENT MEDICARE (WNR) MEDICARE (M) PART B August 12, 2008 PART B [id number] [phone] Dawson YOUNGER PATIENT MEDICARE (WNR) MEDICARE (M) PART A August 12, 2008 PART A [id number] Dawson YOUNGER PATIENT MEDICARE (WNR) MEDICARE (M) PART A August 12, 2008 PART A [id number] Dawson YOUNGER PATIENT MEDICARE (WNR) MEDICARE (M) PART B August 12, 2008 PART B [id number] Dawson YOUNGER PATIENT MEDICARE PART D (WNR) PRESCRIPT ION PART D Apr 14, 2015 PART D [id number] [phone] Dawson YOUNGER PATIENT UNICARE PREFERRED PROVIDER ORGANIZAT ION (PPO) [facility] INDEM N August 12, 2008 [id number] Dawson YOUNGER PATIENT UNICARE MEDICARE [facility] WE[facility] August 12, 2008 [id number] [phone] Dawson YOUNGER PATIENT UNICARE-G. I.C. MEDICAL EXPENSE (OPT/PROF ) [facility] IN[facility] N August 12, 2008 [id number] [phone] Dawson YOUNGER PATIENT WELLPOINT MEDICAL EXPENSE (OPT/PROF ) [facility] IN[facility] N August 12, 2008 [id number] Dawson YOUNGER PATIENT Selected Encounter This section includes the information on record at [place] for the Encounter. Date/Time Encounter Type Encounter Description Reason Provider Source Jan 02, 2024 02:00 PM [facility] EVALUATION AUDIOLOGY ICD-10-CM Z46.1 Encounter for fitting and adjustment of hearing aid KEVIN BARDALES Javad Encounter Template Text not used by [place] Assessments - Encounter Diagnoses This section includes the primary and secondary diagnoses documented for the Encounter. Date/Time Primary/Secondary Diagnosis Diagnosis Name Provider Source Jan 02, 2024 02:50 PM PRIMARY Encounter for fitting and adjustment of hearing aid KEVIN BARDALES [facility] [place] [facility] Jan 02, 2024 02:50 PM SECONDARY Sensorineural hearing loss, bilateral KEVIN BARDALES E [place] [facility] [place] [facility] Plan of Treatment: Future Appointments (+ 6 months) and Future Tests (+/- 45 days) The Plan of Treatment section includes future care activities for the patient from all [place] treatmentfacilities. This section includes future appointments and future orders which are active, pending or scheduled. Future Appointments This section includes appointments that were scheduled to occur 6 months from the date of the Encounter, up to a maximum of 20 appointments. The data comes from all [place] treatment facilities. Appointment Date/Time Appointment Type Appointme nt Facility Name Jan 21, 2024 02:30 PM AMBULATORY - PSYCHIATRY [facility] [place] [facility] Jan 21, 2024 02:31 PM AMBULATORY - PSYCHIATRY [facility] [place] [facility] Feb 05, 2024 11:00 AM AMBULATORY - REHAB MEDICIN E [facility] [place] [facility] Feb 05, 2024 01:30 PM AMBULATORY - MEDICINE [place] [facility] [place] [facility] Feb 26, 2024 01:00 PM AMBULATORY - MEDICINE [facility] Apr 15, 2024 11:00 AM AMBULATORY - REHAB MEDICIN E [facility] [place] [facility] Apr 20, 2024 02:00 PM AMBULATORY - MEDICINE [place] [facility] [place] [facility] Apr 22, 2024 10:00 AM AMBULATORY - MEDICINE [place] [facility] [place] [facility] Apr 28, 2024 01:00 PM AMBULATORY - PSYCHIATRY [facility] [place] [facility] Apr 28, 2024 01:01 PM AMBULATORY - PSYCHIATRY [facility] [place] [facility] May 11, 2024 01:30 PM [facility] [place] [facility] May 26, 2024 03:00 PM AMBULATORY - PSYCHIATRY [place] [facility] [place] [facility] May 26, 2024 03:01 PM [facility] [place] [facility] Jun 22, 2024 01:00 PM AMBULATORY - MEDICINE [facility] Jun 22, 2024 03:00 PM [facility]ORY - NONE [facility] Active, Pending, and Scheduled Orders This section includes a listing of several types of active, pending, and scheduled orders, including clinic medications orders, diagnostic test orders, procedure orders and consult orders; where the start date of the order is 45 days before the date of the Encounter or 45 days after the date of theEncounter. The data comes from all [place] treatment facilities. Test Date/Time Test Type Test Details Facility Name Dec 09, 2023 03:47 PM Consult Order COMMUNITY CARE-NEUROLOGY Cons Civil Manager's Choice [facility] Dec 12, 2023 11:03 AM Consult Order COMMUNITY CARE-SLEEP MEDICINE Cons Civil Manager's Choice [place] Social History: Smoking Status (Most current) and [...] 06, 2023 01:17 PM VA-TOBACCO NEVER USED [facility] Advance Directives: All historical and current Section Date Range: From patient's date of to the date document was created. This section includes ALL of a patient's completed or amended [place] Advance and Rescinded Directives. The entries below indicate that a directive exists for the patient, but an actual copy is not included with this document. The data comes from all [place] facilities. Date Advance Directives Provider Source August 25, 2023 ADVANCE [facility]IVE [facility] Encounter Notes: [...] Hearing was last evaluated in 2021 in [place]. The [employer] record indicates that he was issued two sets of Vero ITC Rs in 2021. However reports he only has one set from 2021 and the set from 2017. He reports no otologic changes, denying tinnitus [...] 2021. Both ITC Rs were connected to [employer] and a firmware update was completed. They were checked and sound weak. The read out indicated that they are in e-STAT. They were reprogrammed to today's audiogram with NAL-NL1 targets. A feedback test was run with good gain margins. Elbert was counseled on today's test results. Included [...] Fitting was scheduled for 02-05-24 at 11am, RT placed. /gurwinder/ Kelley JI, [facility]-A STAFF PACKAGING ASSEMBLER Signed: 01/02/2024 15:00 Receipt Acknowledged By: 01/02/2024 15:46 /gurwinder/ JESE WAHL LEAD CLIENT CARE SPECIALIST 01/13/2024 ADDENDUM STATUS: COMPLETED Hearing aids, remote control, TV Streamer and remote aruna received and certified, upcoming appointment scheduled on 02/05/2024. /gurwinder/ REUBEN KHALIL [facility] Chick Sexer Signed: 01/13/2024 15:43 KEVIN BARDALES [facility]
--- OUTSIDE RECORDS SUMMARY | 2024-09-01 14:56 | XMS_ITS ---
Author Name [facility] [place] Organization [place] Address [address] [place] [address] Care Team Providers Care Operations Project Manager Name Role Phone ERNESTO ARBOLEDA Primary [...] PART A August 12, 2008 PART A [id number] Dawson YOUNGER PATIENT MEDICARE (WNR) MEDICARE (M) PART B August 12, 2008 PART B [id number] Dawson YOUNGER PATIENT MEDICARE (WNR) MEDICARE (M) PART A August 12, 2008 PART A [id number] Dawson YOUNGER PATIENT MEDICARE (WNR) MEDICARE (M) PART B August 12, 2008 PART B [id number] [facility] Dawson YOUNGER PATIENT MEDICARE (WNR) MEDICARE (M) PART A August 12, 2008 PART A [id number] Dawson YOUNGER PATIENT MEDICARE (WNR) MEDICARE (M) PART B August 12, 2008 PART B [id number] Dawson YOUNGER PATIENT MEDICARE (WNR) MEDICARE (M) PART B August 12, 2008 PART B [id number] Dawson YOUNGER PATIENT MEDICARE (WNR) MEDICARE (M) PART A August 12, 2008 PART A [id number] [phone] Dawson YOUNGER PATIENT MEDICARE (WNR) MEDICARE (M) PART A August 12, 2008 PART A [id number] [phone] Dawson YOUNGER PATIENT MEDICARE (WNR) MEDICARE (M) PART B August 12, 2008 PART B [id number] Dawson YOUNGER PATIENT MEDICARE PART D (WNR) PRESCRIPT ION PART D Apr 14, 2015 PART D [id number] Dawson YOUNGER PATIENT UNICARE PREFERRED PROVIDER ORGANIZAT ION (PPO) [facility] August 12, 2008 [id number] Dawson YOUNGER PATIENT UNICARE MEDICARE SUPPLEMEN FARHAD WELLP OINT August 12, 2008 [id number] [phone] [phone] Dawson YOUNGER PATIENT UNICARE-G. I.C. MEDICAL EXPENSE (OPT/PROF ) [facility] N August 12, 2008 [id number] [id number] [phone] Dawson YOUNGER PATIENT WELLPOINT MEDICAL EXPENSE (OPT/PROF ) [facility] N August 12, 2008 [id number] [phone] Dawson YOUNGER PATIENT Selected Encounter This section includes the information on record at [place] for the Encounter. Date/Time Encounter Type Encounter Description Reason Provider Source Apr 15, 2024 11:00 AM HEARING AID REPAIR/MODIFYIN G AUDIOLOGY ICD-10-CM Z46.1 Encounter for fitting and adjustment of hearing aid LILIAM OVALLES Javad Encounter Template Text not used by [place] Assessments - Encounter Diagnoses This section includes the primary and secondary diagnoses documented for the Encounter. Date/Time Primary/Secondary Diagnosis Diagnosis Name Provider Source Apr 15, 2024 11:41 AM PRIMARY Encounter for fitting and adjustment of hearing aid YVES OVALLES [place] [facility] [place] [facility] Apr 15, 2024 11:41 AM SECONDARY Sensorineural hearing loss, bilateral YVES OVALLES [place] [facility] [place] [facility] Plan of Treatment: Future Appointments (+ 6 months) and Future Tests (+/- 45 days) The Plan of Treatment section includes future care activities for the patient [facility] [place] [facility] This section includes future appointments [...] 20, 2024 02:00 PM AMBULATORY - MEDICINE [place] [facility] [place] [facility] Apr 22, 2024 10:00 AM AMBULATORY - MEDICINE [place] [facility] [place] [facility] Apr 28, 2024 01:00 PM AMBULATORY - PSYCHIATRY [place] [facility] [place] [facility] Apr 28, 2024 01:01 PM AMBULATORY - PSYCHIATRY [place] [facility] [place] [facility] May 11, 2024 01:30 PM AMBULATORY - REHAB MEDICIN E [place] [facility] [place] [facility] May 26, 2024 03:00 PM AMBULATORY - PSYCHIATRY [place] [facility] [place] [facility] May 26, 2024 03:01 PM AMBULATORY - PSYCHIATRY [place] [facility] [place] [facility] Jun 22, 2024 01:00 PM AMBULATORY - MEDICINE [facility] Jun 22, 2024 03:00 PM AMBULATORY - NONE [place] [facility] [place] [facility] Jul 27, 2024 10:30 AM AMBULATORY - MEDICINE [place] [facility] [place] [facility] Sep 14, 2024 02:00 PM AMBULATORY - MEDICINE [place] C [facility] [place] [facility] Sep 14, 2024 02:30 PM AMBULATORY - MEDICINE [facility] [place] [facility] Social History: Smoking Status (Most current) and Tobacco Use (All prior to encounter date) This section includes the most current, and the historical, smoking and tobacco- related health factors from the [place] facility where the Encounter took place. Current Smoking Status This section includes the most current smoking, or tobacco-related health factor, from the [place] facility where the Encounter took place. Date/Time Current Smoking Status Comment Facil ity Aug 06, 2023 01:17 PM VA-TOBACCO [facility] Advance Directives: All historical and [...] 2023 ADVANCE DIRECTIVE MICHELLE LEVINE [facility] Radiology Reports: +/- 30 days of [...] 10:00 AM OUTSIDE MRI BRAIN (C-) CPT 97564: SHANICE YOUNGER [id number] -[id number] M Ex Date: APR 22, 2024@10:00 Req Phys: ERNESTO ARBOLEDA Loc: SPR PACT 1 TECHNICAL DOCUMENT WRITER (Req'g Loc) Img Loc: OUTSIDE GENERAL RADIOLOGY Service: Unknown (Case [id number] COMPLETE) OUTSIDE MRI BRAIN (C-) CPT 64274 (RAD Detailed) CPT:97618 Reason for Study: Dementia. study requested by neurology Clinical History: Report Status: Electronically Filed Date Reported: APR 22, 2024 Report: Community care exam; see CPRS/JLV for outside radiology report/results Impression: Community care exam; see CPRS/JLV for outside radiology report/results Primary Diagnostic Code: VERIFIED BY: / *ELECTRONICALLY FILED* [facility] [place] [facility] Encounter Notes: All associated encounter [...] RTC entered. /gurwinder/ REUBEN KHALIL [facility] Hearth Feeder Signed: 04/19/2024 15:51 Receipt Acknowledged By: 04/20/2024 07:15 /gurwinder/ JESE WAHL LEAD SUBSTATION OPERATOR CONVERSION ====== --- Original Document --- 04/15/24 AUDIOLOGY CLINIC: Dx CODE: Z46.1-Encounter for Fitting/Adjusting Hearing Aid(s); H90.3- Sensorineural Hearing Loss, Bilateral APPOINTMENT TYPE: Hearing Aid Programming HISTORY/BACKGROUND: The patient was seen for a hearing aid follow-up appointment, accompanied by his . He was fit with [employer] LEELA RTs on 02/05/24. He reports he gets interference when he watches television from his oxygen. Additionally, they lost the remote control. HEARING AID CHECK: The hearing aids were cleaned and checked. Left debate director was replaced. Listening inspection revealed both devices were working well. [place] reported an improvement in sound quality post [...] for a 30 minute HAC with an mixer crane operator. * Patient Education Education provided on the following topics: Hearing aids Education provided to: P, SO Response to Education: VU [place] Patient P Family F Significant Other SO Verbalizes Understanding VU Returns Demonstration RD Performs Independently PI Lacks Comprehension LC Refused Education RE Not Applicable NA * /gurwinder/ LILIAM OVALLES STAFF LOG GETTER Signed: 04/15/2024 11:42 REUBEN KHALIL [facility] [place] [facility] Apr 15, 2024 07:27 AM AUDIOLOGY E [...] by his . He was fit with [email or web address] AI LEELA RTs on 02/05/24. He reports he gets interference when he watches television from his oxygen. Additionally, they lost the remote control. HEARING AID CHECK: The hearing aids were cleaned and checked. Left debate director was replaced. Listening inspection revealed both devices were working well. reported an improvement in sound quality post maintenance. [place] and were counseled on inserting hearing aids. [...] for a 30 minute HAC with an mixer crane operator. * Patient Education Education provided on the following topics: Hearing aids Education provided to: P, SO Response to Education: JEF [place] Patient P Family F Significant Other SO Verbalizes Understanding VU Returns Demonstration RD Performs Independently PI Lacks Comprehension LC Refused Education RE Not Applicable NA * /gurwinder/ LILIAM OVALLES STAFF LOG GETTER Signed: 04/15/2024 11:42 04/19/2024 ADDENDUM STATUS: COMPLETED One-time replacement remote control received and certified, spoke with the [facility] (on Comm Auth) and scheduled a 30 min HAC on 05/04/2024 @ 1130 in clinic C. RTC entered. /gurwinder/ REUBEN KHALIL [facility]iology [facility] Hearth Feeder Signed: 04/19/2024 15:51 Receipt Acknowledged By: * AWAITING SIGNATURE * JESE WAHL,LILIAM NAVA [facility]
--- OUTSIDE RECORDS SUMMARY | 2024-09-01 14:56 | XMS_ITS ---
Author Name [facility] [place] [facility] [place] Address [address] [place] [address] Care Team Providers Care Decorating And Assembly Supervisor Name Role Phone ERNESTO ARBOLEDA Primary Care [...] PART A August 12, 2008 PART A [id number] [phone] Dawson YOUNGER PATIENT MEDICARE (WNR) MEDICARE (M) PART B August 12, 2008 PART B [id number] [phone] Dawson YOUNGER PATIENT MEDICARE (WNR) MEDICARE (M) PART A August 12, 2008 PART A [id number] Dawson YOUNGER PATIENT MEDICARE (WNR) MEDICARE (M) PART B August 12, 2008 PART B [id number] [phone] Dawson YOUNGER PATIENT MEDICARE (WNR) MEDICARE (M) PART A August 12, 2008 PART A [id number] Dawson YOUNGER PATIENT MEDICARE (WNR) MEDICARE (M) PART B August 12, 2008 PART B [id number] Dawson YOUNGER PATIENT MEDICARE (WNR) MEDICARE (M) PART A August 12, 2008 PART A [id number] [phone] Dawson YOUNGER PATIENT MEDICARE (WNR) MEDICARE (M) PART B August 12, 2008 PART B [id number] [phone] Dawson YOUNGER PATIENT MEDICARE (WNR) MEDICARE (M) PART A August 12, 2008 PART A [id number] Dawson YOUNGER PATIENT MEDICARE (WNR) MEDICARE (M) PART B August 12, 2008 PART B [id number] Dawson YOUNGER PATIENT MEDICARE PART D (WNR) PRESCRIPT ION PART D Apr 14, 2015 PART D [id number] [phone] Dawson YOUNGER PATIENT UNICARE PREFERRED PROVIDER ORGANIZAT ION (PPO) [facility] N August 12, 2008 [id number] Dawson YOUNGER PATIENT UNICARE MEDICARE [facility] WELL[facility]INT August 12, 2008 [id number] [phone] Dawson YOUNGER PATIENT UNICARE-G. I.C. MEDICAL EXPENSE (OPT/PROF ) [facility] August 12, 2008 [id number] [phone] Dawson YOUNGER PATIENT WELLPOINT MEDICAL EXPENSE (OPT/PROF ) [facility] N August 12, 2008 [id number] Dawson YOUNGER PATIENT Selected Encounter This section includes the information on [place] at [place] for the Encounter. Date/Time Encounter Type Encounter Description Reason Provider Source Feb 05, 2024 11:00 AM CONFORMITY EVALUATION AUDIOLOGY ICD-10-CM Z46.1 Encounter for fitting and adjustment of hearing aid KEVIN BARDALES Javad Encounter Template Text not used by [place] Assessments - Encounter Diagnoses This section includes the primary and secondary diagnoses documented for the Encounter. Date/Time Primary/Secondary Diagnosis Diagnosis Name Provider Source Feb 05, 2024 11:55 AM PRIMARY Encounter for fitting and adjustment of hearing aid KEVIN BARDALES [facility] [place] [facility] Feb 05, 2024 11:55 AM SECONDARY Sensorineural hearing loss, bilateral KEVIN BARDALES [facility] [place] [facility] Plan of Treatment: Future Appointments (+ 6 months) and Future Tests (+/- 45 days) The Plan of Treatment section includes future care activities for the patient from all [place] [email or web address]. This section includes future appointments [...] 2024 01:00 PM AMBULATORY - MEDICINE [facility] Apr 15, 2024 11:00 AM AMBULATORY - REHAB MEDICIN E [facility] [place] [facility] Apr 20, 2024 02:00 PM AMBULATORY - MEDICINE [place] [facility] [place] [facility] Apr 22, 2024 10:00 AM AMBULATORY - MEDICINE [place] [facility] [place] [facility] Apr 28, 2024 01:00 PM AMBULATORY - PSYCHIATRY [facility] [place] [facility] Apr 28, 2024 01:01 PM AMBULATORY - PSYCHIATRY [facility] [place] [facility] May 11, 2024 01:30 PM AMBULATORY - REHAB MEDICIN E [facility] [place] [facility] May 26, 2024 03:00 PM AMBULATORY - PSYCHIATRY [facility] [place] [facility] May 26, 2024 03:01 PM AMBULATORY - PSYCHIATRY [place] [facility] [place] [facility] Jun 22, 2024 01:00 PM AMBULATORY - MEDICINE [facility] Jun 22, 2024 03:00 PM AMBULATORY - NONE [place] [facility] Jul 27, 2024 10:30 AM [facility] Social History: Smoking Status (Most current) [...] August 25, 2023 ADVANCE DIRECTIVE [facility] Encounter Notes: All associated encounter notes This section contains the clinical notes associated to the Encounter. Date/Time Encounter Note(s) Provider Source Feb 05, 2024 07:54 AM AUDIOLOGY E & M NO TE: [facility] TITLE: AUDIOLOGY CLINIC STANDARD TITLE: AUDIOLOGY E & M NOTE DATE OF NOTE: FEB 05, 2024@07:54 ENTRY DATE: FEB 05, 2024@07:54:32 AUTHOR: KEVIN BARDALES COSIGNER: URGENCY: STATUS: COMPLETED Diagnosis: bilateral sensorineural hearing loss Hearing Aid Fitting: SUBJECTIVE (S): The Solomon was seen for hearing aid fitting and issuance. S/He had previously been evaluated and found to exhibit significant hearing loss for which amplification was recommended. How does the patient/client best learn? verbal instruction, demonstration Does the patient/client have any cultural and hinduism beliefs, emotional barriers, physical or cognitive limitations, and communication barriers which may impact his/her ability to learn? no Desire and motivation to learn? Good OBJECTIVE (O): Physical fit of earmolds/receivers and domes/hearing aids was good. verified comfort. Verification of an appropriate acoustic response was obtained using Real Ear measurements (speech mapping) and NAL- NL2 targets. The reported good subjective benefit as well. Feedback ancillary services manager was run. Hearing aids were found to be meeting targets adequately and MPO was not exceeding estimated UCL. Settings stored in AIDA. ASSESSMENT (A): The following device(s) was/were issued: Make: Vero Model: Farida AI LEELA RT; remote, remote aruna, TV streamer Serial Numbers: [id number] Battery size: RECHARGEABLE Trial Period ends: 07-05-24 Domes/wax guards, etc.: hear clear Earmold Information: clear silicone canal lock Chemical Operations Specialist size/power: 3P Program Settings (VC, Programs, Buttons): [...] and reports confidence/understanding in all items reviewed. Solomon was given written reference materials today. The Solomon was informed of and agreed to [place] policy on hearing aid issuance: Users are responsible for the maintenance and security of their devices. Determination of need to replace a hearing aid is made by the [place] sausage wrapper. Hearing aids will not be replaced in [...] to: P, F Response to Education: JEF, RD, PI [place] Patient P Family F Significant Other SO Verbalizes Understanding VU Returns Demonstration RD Performs Independently PI Lacks Comprehension LC Refused Education RE Not Applicable NA /gurwinder/ Kelley JI, CCC-A STAFF LABORATORY CUREMAN Signed: 02/05/2024 11:57 KEVIN BARDALES [facility]
--- OUTSIDE RECORDS SUMMARY | 2024-09-01 14:56 | XMS_ITS | Encounter Summary ---
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 Name Role Phone ERNESTO ARBOLEDA Primary [...] PART A August 12, 2008 PART A [id number] [phone] Dawson YOUNGER PATIENT MEDICARE (WNR) MEDICARE (M) PART B August 12, 2008 PART B [id number] Dawson YOUNGER PATIENT MEDICARE (WNR) MEDICARE (M) PART A August 12, 2008 PART A [id number] Dawson YOUNGER PATIENT MEDICARE (WNR) MEDICARE (M) PART B August 12, 2008 PART B [id number] Dawson YOUNGER PATIENT MEDICARE (WNR) MEDICARE (M) PART A August 12, 2008 PART A [id number] [phone] Dawson YOUNGER PATIENT MEDICARE (WNR) MEDICARE (M) PART A August 12, 2008 PART A [id number] Dawson YOUNGER PATIENT MEDICARE (WNR) MEDICARE (M) PART B August 12, 2008 PART B [id number] [phone] Dawson YOUNGER PATIENT MEDICARE (WNR) MEDICARE (M) PART B August 12, 2008 PART B [id number] Dawson YOUNGER PATIENT MEDICARE (WNR) MEDICARE (M) PART A August 12, 2008 PART A [id number] [phone] Dawson YOUNGER PATIENT MEDICARE (WNR) MEDICARE (M) PART B August 12, 2008 PART B [id number] Dawson YOUNGER PATIENT MEDICARE PART D (WNR) PRESCRIPT ION PART D Apr 14, 2015 PART D [id number] [phone] Dawson YOUNGER PATIENT UNICARE PREFERRED PROVIDER ORGANIZAT ION (PPO) [facility] IN[facility] N August 12, 2008 [id number] Dawson YOUNGER PATIENT UNICARE MEDICARE [facility] August 12, 2008 [id number] Dawson YOUNGER PATIENT UNICARE-G. [employer] MEDICAL EXPENSE (OPT/PROF ) [facility] IN[facility] N August 12, 2008 [id number] [id number] Dawson YOUNGER PATIENT [employer] MED[employer] EXPENSE (OPT/PROF ) [facility] IN[facility] N August 12, 2008 [id number] Dawson YOUNGER PATIENT Selected Encounter This section includes the information on record at [place] for the Encounter. Date/Time Encounter Type Encounter Description Reason Provider Source Jan 21, 2024 02:31 PM OFFICE O/P EST LOW 20 [facility] - IND ICD-10-CM F43.10 Post-traumatic stress disorder, unspecified LIU HERNANDEZ Javad Encounter Template Text not used by [place] Assessments - Encounter Diagnoses This section includes the primary and secondary diagnoses documented for the Encounter. Date/Time Primary/Secondary Diagnosis Diagnosis Name Provider Source Jan 21, 2024 03:00 PM PRIMARY Post-traumatic stress disorder, unspecified LIU HERNANDEZ SONYA Jan 21, 2024 03:00 PM SECONDARY Insomnia, unspecified LIU HERNANDEZ SONYA Jan 21, 2024 03:00 PM SECONDARY Unspecified dementia, moderate, with anxiety LIU HERNANDEZ Plan of Treatment: Future Appointments (+ 6 months) and Future Tests (+/- 45 days) The Plan of Treatment section includes future care activities for the patient from [facility] [place] [facility]. This section includes future appointments and future orders which are active, pending or scheduled. Future Appointments This section includes appointments that were scheduled to occur 6 months from the date of the Encounter, up to a maximum of 20 appointments. The data comes from all [place] treatment facilities. Appointment Date/Time Appointment Type Appointme nt Facility Name Feb 05, 2024 11:00 AM AMBULATORY - [facility]ICIN [facility] [place] [facility] Feb 05, 2024 01:30 PM AMBULATORY - MEDICINE [place] [facility] [place] [facility] Feb 26, 2024 01:00 PM AMBULATORY - MEDICINE [facility] Apr 15, 2024 11:00 AM AMBULATORY - REHAB MEDICIN [facility] [place] [facility] Apr 20, 2024 02:00 PM AMBULATORY - MEDICINE [facility] [place] [facility] Apr 22, 2024 10:00 AM AMBULATORY - MEDICINE [place] [facility] [place] [facility] Apr 28, 2024 01:00 PM AMBULATORY - PSYCHIATRY [facility] [place] [facility] Apr 28, 2024 01:01 PM AMBULATORY - PSYCHIATRY [facility] [place] [facility] May 11, 2024 01:30 PM AMBULATORY - REHAB MEDICIN [facility] [place] [facility] May 26, 2024 03:00 PM [facility] May 26, 2024 03:01 PM [facility] Jun 22, 2024 01:00 PM AMBULATORY - MEDICINE [facility] Jun 22, 2024 03:00 PM AM[facility]ULATORY - NONE [facility] Active, Pending, and Scheduled Orders This section includes a listing of several types of active, pending, and scheduled orders, including clinic medications orders, diagnostic test orders, procedure orders and consult orders; where the start date of the order is 45 days before the date of the Encounter or 45 days after the date of theEncounter. The data comes from all [place] treatment facilities. Test Date/Time Test Type Test Details Facility Name Dec 09, 2023 03:47 PM Consult Order COMMUNITY CARE-NEUROLOGY Cons [employer] Supervisor's Choice [facility] Dec 12, 2023 11:03 AM Consult Order COMMUNITY CARE-SLEEP MEDICINE [facility] [employer] Supervisor's Choice TIFF Advance Directives: All historical and current Section Date Range: From patient's date of to the date document was created. This section includes ALL of a patient's completed or amended [place] Advance and Rescinded Directives. The entries below indicate that a directive exists for the patient, but an actual copy is not included with this document. The data comes from all [place] facilities. Date Advance Directives Provider Source August [...] voicemail 2nd attempt: 3rd attempt: 4th attempt: /es/ KAREN OSCAR ALTERNATIVE ENERGY ENGINEER Signed: 02/03/2024 13:11 02/13/2024 ADDENDUM STATUS: COMPLETED RTC orders: Unable to contact patient: Attempts to contact: 1st attempt: Left voicemail 2nd attempt: Spoke with - will call back later to schedule 3rd attempt: 4th attempt: /charlotte OSCAR ALTERNATIVE ENERGY ENGINEER Signed: 02/13/2024 11:09 02/26/2024 ADDENDUM STATUS: COMPLETED RTC orders: Unable to contact patient: Attempts to contact: 1st attempt: Left voicemail 2nd attempt: Spoke with - will call back later to schedule 3rd attempt: LEFT VOICEMAIL 4th attempt: /charlotte OSCAR ALTERNATIVE ENERGY ENGINEER Signed: 02/26/2024 16:24 02/27/2024 ADDENDUM STATUS: COMPLETED RTC orders: Unable to contact patient: Attempts to contact: 1st attempt: Left voicemail 2nd attempt: Spoke with - will call back later to schedule 3rd attempt: LEFT VOICEMAIL 4th attempt: LETTER MAILED - DAY 14 03/12/2024 /charlotte OSCAR ALTERNATIVE ENERGY ENGINEER Signed: 02/27/2024 12:33 KAREN OSCAR TIFF Jan 21, 2024 02:55 PM PSYCHIATRY NOTE: LOCAL TITLE: PSYCHIATRY NOTE STANDARD TITLE: PSYCHIATRY NOTE DATE OF NOTE: JAN 21, 2024@14:55 ENTRY DATE: JAN 21, 2024@14:55:39 AUTHOR: LIU HERNANDEZ COSIGNER: URGENCY: STATUS: COMPLETED LOCATION: This is a CVT visit, patient was in the [facility] and seen by myself remotely from my home via synchronous telehealth equipment operated from the clinic with staff assistance. [place] gave their permission to hold visit via this equipment. CHART REVIEW: seen for initial MH consult 09/23/23, noting: is an 78 year old , , 100% [place] looking to transfer his PTSD treatment from [place] to here after relocating. He is only [...] about balance and falling. He shared with rewriter an acute injury where he injured his back about two weeks ago and did not go to the ER to be evaluated. [facility] will place neuropsychological consult to assess his cognition and advised him to stop to be triaged by the nurse on his way out to assess his back injury. Still gets nightmares-- maybe once a month. Tries to avoid things that will remind him of it. DSM5 DIAGNOSES: PTSD, chronic SC: 70% for PTSD. Per Social Work intake, [place] reported: We were living in [place] for 18yrs, in [place], the weather just became too difficult for me bc of my breathing. I was in the hospital for a week last year bc of my COPD and asthma. When I told my that I thought it was time to move back, she didn't waste a minute to call her friends and tell them, she is very happy. They bought a home in [place], the same city they used to live in. They have friends and family here, some of their children and grandchildren are in [facility]. SC: POST-TRAUMATIC STRESS DISORDER (70%-SC) PRESENTATION AT TIME OF INITIAL VISIT WITH MYSELF 11/13/23: reports he and his moved from [place] in July 2023, noting he was originally from [facility] but moved to [place] after he retired [...] CCB for ventricular rate control. + Agent [place] exposure Then noted October 2023: 2. Chronic hypoxemic respiratory failure: 3. COPD - Chronic obstructive pulmonary disease: 2 L O2 dependent at all times although frequently nonadherent according to his . Not using oxygen during the visit. SPO2 ranging from 90 to 97% but mostly around 93%. Sees [facility] in [place] prior to moving here and was maintained [...] Followed with [facility] cardiology Dr. Guardado in [place]. Cardiology 1 consult placed today for continuation of care. informs that he had an echocardiogram last year but does not have that result. No records yet from Dr. Guardado in [place]. 5. PTSD - Post-traumatic stress disorder: Following with [facility]. 6. Obstructive sleep apnea 7. CKD stage 3: Unknown if stable. Getting labs today. 8. FAYE - Generalised anxiety disorder: Upcoming initial appointment with [facility] H/1. 9. Cognitive decline 10. CAD - Coronary Artery Disease ([facility] [id number]): Maintained on statin, BB, DOAC. Continued. 11. Exposure to potentially hazardous substance 12. Glaucoma: Followed by [place] optometry. 13. Insomnia 14. Bilateral hearing loss 15. GERD - Gastro-Esophageal Reflux Disease ([facility] [id number]): Asymptomatic since starting PPI. Continue omeprazole. SUBSTANCE [...] head and states he would go to [place] to have holes drilled in his head [...] speed and working memory simultaneously on the [place] [employer]). Based on the results of the current neuropsychological evaluation, the met DSM-5 criteria for a major neurocognitive disorder due to multiple etiologies. 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 Given that the [place] is experiencing global cognitive deficits, current neuroimaging, and specifically MRI studies may be helpful to elucidate cortical and /or subcortical abnormalities that may be causative in his cognitive decline. 2. A follow-up with neurology is strongly advised to better establish etiology and to identify prognosis and possible interventions, including pharmacological options such as cholinesterase inhibitor. 3. It remains critically important that the [place] maintain his compliance in taking all his [...] of evaluations will be given to the [place] during the feedback session and can be found at the following website: [email or web address] 12. Alcohol is known to have a negative impact on brain health. It is recommended that the reduce his alcohol consumption or ideally abstain from alcohol INITIAL ASSESSMENT/ DIAGNOSIS AND RECOMMENDATIONS: presents with chronic PTSD with partial improvement on sertraline. He is taking Seroquel for sleep. Given potential adverse effects from this I suggested he return to trazodone which his recalls was helpful in the past. In addition I recommended he reduce his alcohol use. Consider resuming prazosin. PRESENTING SYMPTOMS AND CONDITION ON TODAY'S VISIT: [place] is present with his . He reports [...] CONDITION AND OVERALL PROGRESS TOWARD TREATMENT GOALS: [place] continues to struggle with sleep. Otherwise doing [...] Diagnoses: PTSD - Post-traumatic stress disorder (SCT [id number]) - Post-traumatic stress disorder, unspecified (ICD-10-CM F43.10) (Primary) Insomnia (SCT [id number]) - Insomnia, unspecified (ICD-10-CM G47.00) Dementia ([facility]CT [id number]) - Unspecified dementia, moderate, with anxiety (ICD-10- CM F03.B4) /gurwinder/ LIU HERNANDEZ M.D. Signed: 01/21/2024 15:01 LIU HERNANDEZ
--- OUTSIDE RECORDS SUMMARY | 2024-09-01 14:56 | XMS_ITS | Encounter Summary ---
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 Role Phone ERNESTO ARBOLEDA [...] PART A August 12, 2008 PART A [id number] Dawson YOUNGER PATIENT MEDICARE (WNR) MEDICARE (M) PART B August 12, 2008 PART B [id number] Dawson YOUNGER PATIENT MEDICARE (WNR) MEDICARE (M) PART A August 12, 2008 PART A [id number] Dawson YOUNGER PATIENT MEDICARE (WNR) MEDICARE (M) PART B August 12, 2008 PART B [id number] Dawson YOUNGER PATIENT MEDICARE (WNR) MEDICARE (M) PART A August 12, 2008 PART A [id number] Dawson YOUNGER PATIENT MEDICARE (WNR) MEDICARE (M) PART B August 12, 2008 PART B [id number] Dawson YOUNGER PATIENT MEDICARE (WNR) MEDICARE (M) PART B August 12, 2008 PART B [id number] [facility] [phone] [id number] Dawson YOUNGER PATIENT MEDICARE (WNR) MEDICARE (M) PART A August 12, 2008 PART A [id number] [facility] [id number] Dawson YOUNGER PATIENT MEDICARE (WNR) MEDICARE (M) PART A August 12, 2008 PART A [id number] [id number] Dawson YOUNGER PATIENT MEDICARE (WNR) MEDICARE (M) PART B August 12, 2008 PART B [id number] [phone] Dawson YOUNGER PATIENT MEDICARE PART D (WNR) PRESCRIPT ION PART D Apr 14, 2015 PART D [id number] [phone] Dawson YOUNGER PATIENT UNICARE PREFERRED PROVIDER ORGANIZAT ION (PPO) [facility] August 12, 2008 [id number] Dawson YOUNGER PATIENT [facility] MEDICARE [facility] August 12, 2008 [id number] Dawson YOUNGER PATIENT UNICARE-[employer]. [employer] MEDICAL EXPENSE (OPT/PROF ) [facility] August 12, 2008 [id number] Dawson YOUNGER PATIENT [facility] (OPT/PROF ) [facility] August 12, 2008 [id number] Dawson YOUNGER PATIENT Selected Encounter This section includes the information on record at [place] for the Encounter. Date/Time Encounter Type Encounter Description Reason Provider Source Oct 30, 2023 02:30 PM OFFICE O/P EST LOW 20 MIN PRIMARY CARE/MEDICINE ICD-10-CM J96.11 Chronic respiratory failure with hypoxia ERNESTO ARBOLEDA Javad Encounter Template Text not used by [place] Assessments - Encounter Diagnoses This section includes the primary and secondary diagnoses documented for the Encounter. Date/Time Primary/Secondary Diagnosis Diagnosis Name Provider Source Nov 23, 2023 11:29 AM PRIMARY Chronic respiratory failure with hypoxia ERNESTO ARBOLEDA [facility] Nov 23, 2023 11:29 AM SECONDARY Athscl heart disease of [place] coronary artery w/o ang pctrs ERNESTO ARBOLEDA [facility] Nov 23, 2023 11:29 AM SECONDARY Chronic kidney disease, stage 3 unspecified ERNESTO ARBOLEDA [facility] Nov 23, 2023 11:29 AM SECONDARY Chronic obstructive pulmonary disease, unspecified ERNESTO ARBOLEDA [facility] Nov 23, 2023 11:29 AM SECONDARY Gastro-esophageal reflux disease without esophagitis ERNESTO ARBOLEDA [facility] Nov 23, 2023 11:29 AM SECONDARY Generalized anxiety disorder ERNESTO ARBOLEDA [facility] Nov 23, 2023 11:29 AM SECONDARY Paroxysmal atrial fibrillation ERNESTO ARBOLEDA [facility] Nov 23, 2023 11:29 AM SECONDARY Post-traumatic stress disorder, unspecified ERNESTO ARBOLEDA [facility] Plan of Treatment: Future Appointments (+ 6 months) and Future Tests (+/- 45 days) The Plan of Treatment section includes future care activities for the patient from all [place] [facility]. This section includes future appointments and future orders which are active, pending or scheduled. Future Appointments This section includes appointments that were scheduled to occur 6 months from the date of the Encounter, up to a maximum of 20 appointments. The data comes from all [place] treatment facilities. Appointment Date/Time Appointment Type Appointme nt Facility Name Nov 07, 2023 01:00 PM AMBULATORY - REHAB MEDICIN E [facility] Nov 13, 2023 10:00 AM AMBULATORY - [place]IATRY [facility] [place] [facility] Nov 13, 2023 02:00 PM AMBULATORY - MEDICINE [facility] [place] [facility] Nov 14, 2023 01:00 PM AMBULATORY - MEDICINE [place] [facility] [place] [facility] Nov 14, 2023 02:00 PM AMBULATORY - MEDICINE [place] [facility] [place] [facility] Dec 01, 2023 08:30 AM [facility] [place] [facility] Dec 09, 2023 03:00 PM AMBUL[facility]ORY - [facility] [place] [facility] Dec 25, 2023 11:00 AM AMBULATORY - PS[facility]IATRY [facility] [place] [facility] Jan 01, 2024 01:30 PM AMBULATORY - MEDICINE [facility] [place] [facility] Jan 01, 2024 02:00 PM AMBULATORY - MEDICINE [facility] [place] [facility] Jan 02, 2024 02:00 PM AMBULATORY - REHAB MEDICIN E [facility] [place] [facility] Jan 21, 2024 02:30 PM AMBULATORY - PS[facility]CHIATRY [facility] [place] [facility] Jan 21, 2024 02:31 PM AMBULATORY - PS[facility]CHIATRY [facility] [place] [facility] Feb 05, 2024 11:00 AM AMBULATORY - REHAB MEDICIN E [facility] [place] [facility] Feb 05, 2024 01:30 PM AMBULATORY - MEDICINE [facility] [place] [facility] Feb 26, 2024 01:00 PM AMBULATORY - MEDICINE [facility] Apr 15, 2024 11:00 AM AMBULATORY - REHAB MEDICIN E [facility] [place] [facility] Apr 20, 2024 02:00 PM AMBULATORY - MEDICINE [facility] [place] [facility] Apr 22, 2024 10:00 AM AMBULATORY - MEDICINE [facility] [place] [facility] Apr 28, 2024 01:00 PM AMBULATORY - PS[facility]CHIATRY [facility] [place] [facility] Active, Pending, and Scheduled Orders This section includes a listing of several types of active, pending, and scheduled orders, including clinic medications orders, diagnostic test orders, procedure orders and consult orders; where the start date of the order is 45 days before the date of the Encounter or 45 days after the date of theEncounter. The data comes from all [place] treatment facilities. Test Date/Time Test Type Test Details Facility Name Dec 09, 2023 03:47 PM Consult Order COMMUNITY CARE-NEUROLOGY Cons [employer] [facility] [place] [facility] Dec 12, 2023 11:03 AM Consult Order COMMUNITY CARE-SLEEP MEDICINE Cons [employer] [facility] [facility] Lab Results: +/- 30 days of the encounter This section includes the Chemistry and Hematology Lab Results on record with [place] for the patient. Radiology Reports and Pathology Reports are provided separately, in subsequent sections. Lab Results This section contains the Chemistry/Hematology Results that were resulted 30 days before or 30 daysafter the date of the Encounter. Date/Time Source Result Type Result - Unit Interpretation Reference Range Specimen Type Comment Nov 07, 2023 01:19 PM [facility] URINALYSIS URINE Specimen Type: URINE Comment: If Glucose = >500 and Ketones are positive, please alert the Physician. Ordering Provider: ERNESTO ARBOLEDA Report Released Date/Time: August 17, 2023 01:25 PM Reporting Lab: [address] [address] Performing Lab: [address] [address] UA COLOR Yellow Yellow UA APPEARANCE Turbid Clear UA GLUCOSE NEGATIVE mg/dL Negative UA KETONES NEGATIVE mg/dL Negative UA BLOOD NEGATIVE mg/dL Negative UA PROTEIN NEGATIVE mg/dL Negative UA NITRITE NEGATIVE mg/dL Negative UA BILIRUBIN NEGATIVE mg/dL Negative UA SPECIFIC GRAVITY 1.024 H 1.016-1.022 UA pH 6.0 5.0-9.0 UA UROBILINOGEN <2.0 mg/dL <2.0 UA LEUKOCYTE NEGATIVE Negative Nov 07, 2023 01:19 PM [facility] MICROALBUMIN CREATININE RATIO PANEL URINE Specimen Type: URINE No comment entered. Ordering Provider: ERNESTO ARBOLEDA Report Released Date/Time: August 17, 2023 01:25 PM Reporting Lab: [address] [address] Performing Lab: [address] [address] MICROALBUMIN/CREATININE RATIO canc mg/g 0-29.9 MICROALBUMIN,QUANTITATIVE < 0.5 mg/dL RR UNAVAIL CREATININE URINE 128.85 mg/dL Nov 07, 2023 01:19 PM [facility] LIVER FUNCTION SERUM Specimen Type: SERUM No comment entered. Ordering Provider: ERNESTO ARBOLEDA Report Released Date/Time: August 17, 2023 01:25 PM Reporting Lab: [facility] [address] [address] Performing Lab: [address] [address] PROTEIN,TOTAL 6.4 g/dL 6.0-8.3 ALBUMIN 3.3 g/dL L 3.5-5.0 ALKALINE PHOSPHATASE 88 U/L 40-150 AST 16 U/L 5-34 ALT 24 U/L BILIRUBIN, TOTAL 0.4 mg/dL 0.2-1.2 Nov 07, 2023 01:19 PM [facility] LIPID PANEL, NON FASTING SERUM Specim en Type: SERUM No comment entered. Ordering Provider: ERNESTO ARBOLEDA Report Released Date/Time: August 17, 2023 01:25 PM Reporting Lab: [address] [address] Performing Lab: [address] [address] CHOLESTEROL 134 mg/dL TRIGLYCERIDE 235 mg/dL H 0-150 LDL calculated 41 mg/dL 0-129 CHOL/HDL 2.9 HDL CHOLESTEROL 46 mg/dL 40-60 Nov 07, 2023 01:19 PM [facility] CALCIUM SERUM Sp ecimen Type: SERUM No comment entered. Ordering Provider: ERNESTO ARBOLEDA Report Released Date/Time: August 17, 2023 01:25 PM Reporting Lab: [address] [address] Performing Lab: [address] [address] CALCIUM 8.8 mg/dL 8.5-10.2 Nov 07, 2023 01:19 PM [facility] HEMOGLOBIN A1C PANEL BLOOD Specimen T ype: BLOOD Comment: Values obtained from A1C measurements can vary. For atypical A1C assays, a reported value of 7.0 could actually be between 6.72 and 7.28 if measured by a reference method. A reported value of 9.0 could actually be between 8.73 and 9.27. Ref: http://www.ngsp.org/CAPdata.asp Ordering Provider: ERNESTO ARBOLEDA Report Released Date/Time: August 17, 2023 01:25 PM Reporting Lab: [facility] [place] [facility] [address] [facility] [address] Performing Lab: [facility] [place] [facility] [address] [facility] [address] HEMOGLOBIN A1C 5.9 H 4.0-5.6 Nov 07, 2023 01:19 PM [facility] TSH SERUM Sp ecimen Type: SERUM No comment entered. Ordering Provider: ERNESTO ARBOLEDA Report Released Date/Time: August 17, 2023 01:25 PM Reporting Lab: [facility] [place] [facility] [address] [facility] [address] Performing Lab: [facility] [place] [address] [address] TSH 1.16 u[IU]/mL 0.35-5.00 Nov 07, 2023 01:19 PM [facility] MAGNESIUM SERUM Sp ecimen Type: SERUM No comment entered. Ordering Provider: ERNESTO ARBOLEDA Report Released Date/Time: August 17, 2023 01:25 PM Reporting Lab: [facility] [place] [address] [address] Performing Lab: [facility] [place] [address] [address] MAGNESIUM 1.9 mg/dL 1.6-2.6 Nov 07, 2023 01:19 PM [facility] VITAMIN D (25-OH) SERUM Specimen Type: SERUM No comment entered. Ordering Provider: ERNESTO ARBOLEDA Report Released Date/Time: August 17, 2023 01:25 PM Reporting Lab: [facility] [place] [address] [address] Performing Lab: [facility] [place] [address] [address] VITAMIN D (25-OH) 28 ng/mL 20-50 Nov 07, 2023 01:19 PM [facility] VITAMIN B12 SERUM Specimen Type: SERUM No comment entered. Ordering Provider: ERNESTO ARBOLEDA Report Released Date/Time: August 17, 2023 01:25 PM Reporting Lab: [facility] [place] [address] [address] Performing Lab: [facility] [address] [address] VITAMIN B12 424 pg/mL 200-900 Nov 07, 2023 01:19 PM [facility] PT & INR (PROTIME) PLASMA Specimen Typ e: PLASMA No comment entered. Ordering Provider: ERNESTO ARBOLEDA Report Released Date/Time: August 17, 2023 01:25 PM Reporting Lab: [address] [address] Performing Lab: [address] [address] INR 1.1 PROTIME 11.9 s 10.0-13.1 Nov 07, 2023 01:19 PM [facility] BASIC METABOLIC PANEL (non-fasting) SERUM Specimen Type: SERUM No comment entered. Ordering Provider: ERNESTO ARBOLEDA Report Released Date/Time: August 17, 2023 01:25 PM Reporting Lab: [address] [address] Performing Lab: [address] [address] UREA NITROGEN 19 mg/dL 7-25 GLUCOSE 99 mg/dL 65-100 SODIUM 139 mmol/L 135-145 POTASSIUM 4.3 mmol/L 3.5-5.0 CHLORIDE 105 mmol/L 100-110 CO2 29 meq/L 20-30 CREATININE, Serum 1.05 mg/dL 0.50-1.40 eGFR(CKD-EPI 2020) 72 mL/min >60 Nov 07, 2023 01:19 PM [facility] CBC AND DIFF (AUTO) BLOOD Specimen Ty pe: BLOOD No comment entered. Ordering Provider: ERNESTO ARBOLEDA Report Released Date/Time: August 17, 2023 01:25 PM Reporting Lab: [address] [address] Performing Lab: [address] [address] WBC 6.90 10*3/uL 4.50-11.00 RBC 4.40 10*6/uL [...] 0.3 0.0-0.7 IMMATURE GRAN, ABS 0.02 10*3/uL 0.00-0.0 6 NRBC % 0.0 0.0-0.0 NRBC, ABS 0.00 10*3/uL 0.00-0.00 Nov 07, 2023 01:19 PM [facility] MICROSCOPIC AUTOMATED, URINE URINE Sp ecimen Type: URINE Comment: If Glucose = >500 and Ketones are positive, please alert the Physician. Ordering Provider: ERNESTO ARBOLEDA Report Released Date/Time: August 17, 2023 01:25 PM Reporting Lab: [facility] [address] [facility] [address] Performing Lab: [facility] [address] [address] UA WBC 0-5 /[HPF] 0-5 UA RBC 0-2 /[HPF] 0-3 UA AMORPHOUS CRYSTALS FEW /[HPF] Not Est ablished Advance Directives: All historical and current Section Date Range: From patient's date of to the date document was created. This section includes ALL of a patient's completed or amended [place] Advance and Rescinded Directives. The entries below indicate that a directive exists for the patient, but an actual copy is not included with this document. The data comes from all [place] facilities. Date Advance Directives Provider Source August [...] URGENCY: STATUS: COMPLETED PRIMARY CARE VISIT SHANICE FELISHA YOUNGER, is a 78 yo WHITE MALE [place] who [facility] the [place] [facility]. TYPE OF VISIT: Face to face [...] and diagnostic studies were reviewed with the [place]. All medications were reconciled during this visit. HEALTHCARE PROVIDERS: PCP [place], last seen June 2023 in [place] [facility]: [place] Cardiology: Dr. Guardado, [place] [facility]: [facility]: [place] Optometry: [place] Pulmonology: [facility], and locally, Dr. Hickman Social Hx: The [...] extremities, or unilateral weakness. EXAMINATION General: Well-appearing in no obvious distress. Mental Status: Alert [...] mostly around 93%. Sees [facility] pulmonology in [place] prior to moving here and was maintained [...] Followed with [facility] cardiology Dr. Guardado in [place]. Cardiology 1 consult placed today for continuation of care. informs that he had an echocardiogram last year but does not have that result. No records yet from Dr. Guardado in [place]. 5. PTSD - Post-traumatic stress disorder: Following with [facility]. 6. Obstructive sleep apnea 7. CKD stage 3: Unknown if stable. Getting labs today. 8. FAYE - Generalised anxiety disorder: Upcoming initial appointment with [facility] H/. 9. Cognitive decline 10. CAD - Coronary Artery Disease ([facility] [id number]): Maintained on statin, BB, DOAC. Continued. 11. Exposure to potentially hazardous substance 12. Glaucoma: Followed by [place] optometry. 13. Insomnia 14. Bilateral hearing loss 15. GERD - Gastro-Esophageal Reflux Disease ([facility] [id number]): Asymptomatic since starting PPI. Continue omeprazole. FOLLOW UP: RTC Below & sooner PRN UPCOMING APPOINTMENTS: 11/13/2023 10:00 CWM/SO/VVC/MHC/PSYTR 1 11/13/2023 14:00 COM CARE-DENTAL SPECIAL 11/14/2023 13:00 CWM/NO/OPTOMETRY/OSHINSKI 01/23/2024 10:30 [...] of active outpatient prescriptions dispensed from this [place] (local) and dispensed from another [place] or [facility] facility (remote) as well as inpatient [...]
--- OUTSIDE RECORDS SUMMARY | 2024-09-01 14:56 | XMS_ITS ---
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 Name Role Phone ERNESTO ARBOLEDA Primary [...] PART A August 12, 2008 PART A [id number] Dawson YOUNGER PATIENT MEDICARE (WNR) MEDICARE (M) PART B August 12, 2008 PART B [id number] [phone] Dawson YOUNGER PATIENT MEDICARE (WNR) MEDICARE (M) PART A August 12, 2008 PART A [id number] Dawson YOUNGER PATIENT MEDICARE (WNR) MEDICARE (M) PART B August 12, 2008 PART B [id number] [facility] [phone] Dawson YOUNGER PATIENT MEDICARE (WNR) MEDICARE (M) PART B August 12, 2008 PART B [id number] Dawson YOUNGER PATIENT MEDICARE (WNR) MEDICARE (M) PART A August 12, 2008 PART A [id number] Dawson YOUNGER PATIENT MEDICARE (WNR) MEDICARE (M) PART B August 12, 2008 PART B [id number] Dawson YOUNGER PATIENT MEDICARE (WNR) MEDICARE (M) PART A August 12, 2008 PART A [id number] [phone] Dawson YOUNGER PATIENT MEDICARE (WNR) MEDICARE (M) PART A August 12, 2008 PART A [id number] Dawson YOUNGER PATIENT MEDICARE (WNR) MEDICARE (M) PART B August 12, 2008 PART B [id number] Dawson YOUNGER PATIENT MEDICARE PART D (WNR) PRESCRIPT ION PART D Apr 14, 2015 PART D [id number] [phone] Dawson YOUNGER PATIENT UNICARE PREFERRED PROVIDER ORGANIZAT ION (PPO) [facility] N August 12, 2008 [id number] [phone] Dawson YOUNGER PATIENT UNICARE MEDICARE SUPPLEMEN FARHAD WELLP OINT August 12, 2008 [id number] Dawson YOUNGER PATIENT [employer]. [employer] MEDICAL EXPENSE (OPT/PROF ) [facility] August 12, 2008 [id number] Dawson YOUNGER PATIENT WE[employer] MEDICAL EXPENSE (OPT/PROF ) [facility] N August 12, 2008 [id number] Dawson YOUNGER PATIENT Selected Encounter This [...] right eye, mild stage OSHINSKIE,CELENA ROYER J [place] [facility] [place] [facility] Feb 06, 2024 09:03 AM SECONDARY Capslr glaucoma w/pseudxf lens, left eye, mild stage OSHINSKIE,CELENA ROYER J [place] [facility] [place] [facility] Plan of Treatment: Future Appointments (+ 6 months) and Future Tests (+/- 45 days) The Plan of Treatment section includes future care activities for the patient from all [place] treatmentfaciluab hospital. This section includes future appointments and [...] 26, 2024 01:00 PM AMBULATORY - MEDICINE [facility] Apr 15, 2024 11:00 AM AMBULATORY - REHAB MEDICIN E [facility] [place] [facility] Apr 20, 2024 02:00 PM AMBULATORY - MEDICINE [facility] [place] [facility] Apr 22, 2024 10:00 AM AMBULATORY - MEDICINE [facility] [place] [facility] Apr 28, 2024 01:00 PM AMBULATORY - PSYCHIATRY [facility] [place] [facility] Apr 28, 2024 01:01 PM AMBULATORY - PSYCHIATRY [facility] [place] [facility] May 11, 2024 01:30 PM AMBULATORY - REHAB MEDICIN E [facility] [place] [facility] May 26, 2024 03:00 PM AMBULATORY - PSYCHIATRY [facility] [place] [facility] May 26, 2024 03:01 PM AMBULATORY - PSYCHIATRY [place] [facility] [place] [facility] Jun 22, 2024 01:00 PM [facility] Jun 22, 2024 03:00 PM AMBULATORY - NONE [place] [facility] [place] [facility] Jul 27, 2024 10:30 AM [facility] Social History: Smoking Status (Most [...] 06, 2023 01:17 PM VA-TOBACCO NEVER USED [facility] Advance Directives: All [...] August 25, 2023 ADVANCE DIRECTIVE MICHELLE LEVINE [facility] Encounter Notes: All associated encounter notes [...] mildly progressive compared to last VF in [place] [facility] denies any changes in vision since [...] of active outpatient prescriptions dispensed from this AL (local) and dispensed from another [facility] or [facility] facility (remote) as well as inpatient [...] (Tool #5) FACILITY ALLERGY/ADR -------- JYOTI HESS [facility] Med. Reconciliation (Tool #1) INCLUDED IN THIS LIST: Alphabetical list of active outpatient prescriptions dispensed from this AL (local) and dispensed from another AL or [facility] facility (remote) as well as inpatient orders (local pending and active), local clinic medications, locally documented non-VA medications, and local prescriptions that have or been discontinued in the past 90 days. Non-VA Meds Last Documented On: Data not found NOTE The display of VA prescriptions dispensed from another AL or [facility] facility (remote) is limited to active outpatient prescription entries matched to National Drug File at the originating site and may not include some items such as investigational drugs, compounds, etc. NOT INCLUDED IN THIS LIST: Medications self-entered by the patient into personal health records (i.e. [employer]) are NOT included in this list. Non-VA medications documented outside this AL, remote inpatient orders (regardless of status) and remote clinic medications are NOT included in this list. The patient and provider must always discuss medications the patient is taking, regardless of where the medication was dispensed or obtained. OUTPT ALBUTEROL 90MCG (CFC-F) 200D ORAL INHL (Status = Active) INHALE 2 PUFFS BY MOUTH FOUR TIMES DAILY NEEDED FOR BRONCHOSPASM Rx# [id number] Last Released: 11/12/23 Qty/Days Supply: Rx Expiration Date: 08/07/24 Refills Remainin Indication: FOR BRONCHOSPASM Remote ATORVASTATIN CA 80MG TAB TAKE ONE-HALF TABLET BY MOUTH EVERY DAY FOR CHOLESTEROL Last Filled: 11/10/23 (Active at ED [facility]) Rx Expiration Date: 06/30/24 Days Supply: 90 OUTPT ATORVASTATIN CALCIUM 80MG TAB (Status = Active) TAKE ONE TABLET BY MOUTH ONCE DAILY FOR HIGH CHOLESTEROL Rx# [id number] Last Released: 08/13/23 Qty/Days Supply: Rx Expiration Date: 08/08/24 Refills Remainin Indication: FOR HIGH CHOLESTEROL OUTPT BRIMONIDINE TARTRATE 0.2% OPH SOLN (Status = Discontinued) INSTILL 1 DROP INTO THE RIGHT EYE EVERY MORNING FOR INCREASED PRESSURE IN THE EYE FOR GLAUCOMA Rx# [id number] Last Released: 11/21/23 Qty/Days Supply: Rx Expiration Date: 11/14/24 Refills Remainin Indication: FOR INCREASED PRESSURE IN THE EYE OUTPT BRIMONIDINE TARTRATE 0.2% OPH SOLN (Status = Active) INSTILL 1 DROP INTO THE RIGHT EYE TWICE DAILY FOR GLAUCOMA Rx# [id number] Last Released: 01/03/24 Qty/Days Supply: Rx Expiration Date: 01/01/25 Refills Remainin Indication: FOR INCREASED PRESSURE IN THE EYE Remote BRIMONIDINE TARTRATE 0.2% SOLN,OPH INSTILL 1 DROP INTO RIGHT EYE EVERY MORNING FOR GLAUCOMA Last Filled: 06/16/23 (Active at ED [facility]) Rx Expiration Date: 03/28/24 Days Supply: OUTPT CARBOXYMETHYLCELLULOSE NA 0.5% OPH SOLN (Status = Active) INSTILL 1 DROP INTO EACH EYE FOUR TIMES A DAY FOR DRY EYE Rx# [id number] Last Released: 11/21/23 Qty/Days Supply: Rx Expiration Date: 11/14/24 Refills Remainin Indication: FOR DRY EYE OUTPT DABIGATRAN ETEXILATE 150MG ORAL CAP (Status = Active) TAKE ONE CAPSULE BY MOUTH TWICE DAILY TO PREVENT BLOOD CLOTS (ONCE OPENED, THE MEDICATION MUST BE USED WITHIN 4 MONTHS) Rx# [id number] Last Released: 11/12/23 Qty/Days Supply: 180 Rx Expiration Date: 08/13/24 Refills Remainin Indication: TO PREVENT BLOOD CLOTS OUTPT DILTIAZEM (EQV-CARDIZEM) 240MG 24HR CAP (Status = Active) TAKE ONE CAPSULE BY MOUTH ONCE DAILY FOR ATRIAL FIBRILLATION Rx# [id number] Last Released: 11/05/23 Qty/Days Supply: 90 Rx Expiration Date: 08/07/24 Refills Remainin Indication: FOR ATRIAL FIBRILLATION OUTPT DOXYCYCLINE HYCLATE 100MG TAB (Status = ) TAKE ONE TABLET BY MOUTH TWICE DAILY UPPER RESPIRATORY INFECTION Rx# [id number] Last Released: 10/30/23 Qty/Days Supply: 25/10 Rx Expiration Date: 11/29/23 Refills Remainin Indication: UPPER RESPIRATORY INFECTION OUTPT EZETIMIBE 10MG TAB (Status = Active) TAKE ONE TABLET BY MOUTH ONCE DAILY TO LOWER CHOLESTEROL Rx# [id number] Last Released: 01/27/24 Qty/Days Supply: Rx Expiration Date: 08/07/24 Refills Remainin Indication: FOR HIGH CHOLESTEROL OUTPT FUROSEMIDE 20MG TAB (Status = Active) TAKE ONE TABLET BY MOUTH ONCE DAILY NEEDED FOR VISIBLE WATER RETENTION TO REMOVE FLUID/CONTROL BLOOD PRESSURE Rx# [id number] Last Released: 11/12/23 Qty/Days Supply: Rx Expiration Date: 08/08/24 Refills Remainin Indication: FOR VISIBLE WATER RETENTION Remote KETOCONAZOLE 2% SHAMPOO USE SMALL AMOUNT ON SCALP FRI,FRI AND FRIDAY SEBORRHEIC DERMATITIS LATHER, APPLY TO SCALP, LEAVE ON FOR 5 MINUTES, THEN WASH OFF. DO THIS THREE TIMES PER WEEK. Last Filled: 12/22/23 (Active at ED [facility]) Rx Expiration Date: 03/31/24 Days Supply: 30 OUTPT LATANOPROST 0.005% OPH SOLN (Status = Active) INSTILL 1 DROP INTO EACH EYE AT BEDTIME FOR INCREASED PRESSURE IN THE EYE Rx# [id number] Last Released: 11/19/23 Qty/Days Supply: 7. Rx Expiration Date: 11/14/24 Refills Remainin Indication: FOR INCREASED PRESSURE IN THE EYE OUTPT METOPROLOL SUCCINATE 50MG SA TAB (Status = Active) TAKE ONE TABLET BY MOUTH ONCE DAILY FOR BLOOD PRESSURE/HEART Rx# [id number] Last Released: 11/12/23 Qty/Days Supply: 90 Rx Expiration Date: 08/08/24 Refills Remainin Indication: FOR HIGH BLOOD PRESSURE Remote METOPROLOL TARTRATE 50MG TAB TAKE ONE-HALF TABLET BY MOUTH TWICE A DAY FOR HEART AND BLOOD PRESSURE Last Filled: 11/10/23 (Active at ED [facility]) Rx Expiration Date: 06/30/24 Days Supply: 90 Remote OMEPRAZOLE 20MG CAP,EC TAKE ONE CAPSULE BY MOUTH EVERY DAY FOR STOMACH Last Filled: 07/30/23 (Active at ED [facility]) Rx Expiration Date: 06/30/24 Days Supply: 90 OUTPT OMEPRAZOLE 20MG EC CAP (Status = Active) TAKE ONE CAPSULE BY MOUTH EVERY MORNING 30 MINUTES BEFORE BREAKFAST FOR GASTROESOPHAGEAL REFLUX DISEASE Rx# [id number] Last Released: 11/12/23 Qty/Days Supply: Rx Expiration Date: 08/08/24 Refills Remainin Indication: FOR GASTROESOPHAGEAL REFLUX DISEASE OUTPT PRIMIDONE 50MG TAB (Status = Active) TAKE ONE TABLET BY MOUTH ONCE DAILY FOR SIMPLE SEIZURE Rx# [id number] Last Released: 11/12/23 Qty/Days Supply: Rx Expiration Date: 08/08/24 Refills Remainin Indication: FOR SIMPLE SEIZURE Remote PRIMIDONE 50MG TAB TAKE ONE TABLET BY MOUTH THREE TIMES A DAY FOR TREMORS Last Filled: 07/30/23 (Active at ED [facility]) Rx Expiration Date: 06/30/24 Days Supply: 90 OUTPT QUETIAPINE FUMARATE 100MG TAB (Status = ) TAKE ONE TABLET BY MOUTH AT BEDTIME FOR ANXIETY Rx# [id number] Last Released: 10/30/23 Qty/Days Supply: Rx Expiration Date: 11/29/23 Refills Remainin Indication: FOR ANXIETY Remote QUETIAPINE FUMARATE 200MG TAB TAKE ONE-HALF TABLET BY MOUTH AT BEDTIME FOR ANXIETY Last Filled: 07/01/23 (Active at ED [facility]) Rx Expiration Date: 04/23/24 Days Supply: 30 OUTPT SERTRALINE HCL 100MG TAB (Status = Active) TAKE ONE TABLET BY MOUTH ONCE DAILY FOR POSTTRAUMATIC STRESS SYNDROME Rx# [id number] Last Released: 11/12/23 Qty/Days Supply: Rx Expiration Date: 08/08/24 Refills Remainin Indication: FOR POSTTRAUMATIC STRESS SYNDROME OUTPT TRAZODONE HCL 100MG TAB (Status = Discontinued) TAKE 1/2 - 1 TABLET BY MOUTH AT BEDTIME NEEDED FOR INSOMNIA ASSOCIATED WITH DEPRESSION Rx# [id number] Last Released: 11/14/23 Qty/Days Supply: Rx Expiration Date: 11/13/24 Refills Remainin Indication: FOR INSOMNIA ASSOCIATED WITH DEPRESSION OUTPT TRAZODONE HCL 100MG TAB (Status = Active) TAKE TWO TABLETS BY MOUTH AT BEDTIME FOR INSOMNIA ASSOCIATED WITH DEPRESSION Rx# [id number] Last Released: 01/22/24 Qty/Days Supply: 180/90 Rx Expiration Date: 01/21/25 Refills Remainin Indication: FOR INSOMNIA ASSOCIATED WITH DEPRESSION SUPPLIES PHARMACY TERMS AND POSSIBLE PATIENT ACTIONS INPT = AL inpatient order IV = AL intravenous medication OUTPT = AL outpatient prescription PHARMACY POSSIBLE PATIENT TERMS EXPLANATION ACTIONS -------- - ACTIVE A prescription that can be If you have refills, filled at the local AL pharmacy. you may request a refill of this prescription from your AL pharmacy. CLINIC A medication you received during If you have questions a visit to a AL clinic or about this medication emergency department. contact your AL healthcare team. DISCONTINUED A prescription your provider has Contact your AL stopped. It is no longer healthcare team if you available to be sent to you or need more of this picked up at the AL pharmacy medication. window. A prescription which is too old Contact your AL to fill. This does not refer to [...] the VA. Or, it may be an [id number] (OTC), herbal, dietary supplements or sample medication. [...] ==== /gurwinder/ Jose Fisher OD Fee [employer] Data Warehouse Administrator Signed: 02/05/2024 14:17 [facility]ER [facility]
--- OUTSIDE RECORDS SUMMARY | 2024-09-01 14:56 | XMS_ITS | Encounter Summary ---
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 Role Phone ERNESTO ARBOLEDA Primary Care [...] PART A August 12, 2008 PART A [id number] Dawson YOUNGER PATIENT MEDICARE (WNR) MEDICARE (M) PART B August 12, 2008 PART B [id number] [phone] Dawson YOUNGER PATIENT MEDICARE (WNR) MEDICARE (M) PART A August 12, 2008 PART A [id number] Dawson YOUNGER PATIENT MEDICARE (WNR) MEDICARE (M) PART B August 12, 2008 PART B [id number] Dawson YOUNGER PATIENT MEDICARE (WNR) MEDICARE (M) PART A August 12, 2008 PART A [id number] Dawson YOUNGER PATIENT MEDICARE (WNR) MEDICARE (M) PART B August 12, 2008 PART B [id number] Dawson YOUNGER PATIENT MEDICARE (WNR) MEDICARE (M) PART B August 12, 2008 PART B [id number] Dawson YOUNGER PATIENT MEDICARE (WNR) MEDICARE (M) PART A August 12, 2008 PART A [id number] Dawson YOUNGER PATIENT MEDICARE (WNR) MEDICARE (M) PART A August 12, 2008 PART A [id number] Dawson YOUNGER PATIENT MEDICARE (WNR) MEDICARE (M) PART B August 12, 2008 PART B [id number] Dawson YOUNGER PATIENT MEDICARE PART D (WNR) PRESCRIPT ION PART D Apr 14, 2015 PART D [id number] Dawson YOUNGER PATIENT [employer] PREFERRED PROVIDER ORGANIZAT ION (PPO) [facility] N August 12, 2008 [id number] Dawson YOUNGER PATIENT [employer] MEDICARE SUPPLEMEN FARHAD WELLP OINT August 12, 2008 [id number] Dawson YOUNGER PATIENT [employer]. [employer] MEDICAL EXPENSE (OPT/PROF ) [facility] August 12, 2008 [id number] Dawson YOUNGER PATIENT [employer] MEDICAL EXPENSE (OPT/PROF ) [facility] N August 12, 2008 [id number] Dawson YOUNGER PATIENT Selected Encounter This section includes the information on record at [place] for the Encounter. Date/Time Encounter Type Encounter Description Reason Provider Source September 09, 2023 10:55 AM TARGETED CASE MANAGEMENT ADMIN PAT ACTIVTIES (MASNONCT) MARGARET ROMO [facility] Encounter Template Text not used by [place] Plan of Treatment: Future Appointments (+ 6 months) and Future Tests (+/- 45 days) The Plan of Treatment section includes future care activities for the patient from all [place] treatmentfacilities. This section includes future appointments and [...] AMBULATORY - NONE [facility] [place] [facility] Sep 23, 2023 09:00 AM AMBULATORY - PSYCHIATRY [facility] [place] [facility] Oct 02, 2023 11:00 AM AMBULATORY - NONE [facility] [place] [facility] Oct 30, 2023 02:30 PM AMBULATORY - MEDICINE [facility] Nov 07, 2023 01:00 PM AMBULATORY - REHAB [facility]ICIN [facility] Nov 13, 2023 10:00 AM AMBULATORY - PSYCHIATRY [facility] [place] [facility] Nov 13, 2023 02:00 PM AMBULATORY - MEDICINE [facility] [place] [facility] Nov 14, 2023 01:00 PM AMBULATORY - MEDICINE [facility] [place] [facility] Nov 14, 2023 02:00 PM AMBULATORY - MEDICINE [facility] [place] [facility] Dec 01, 2023 08:30 AM AMBULATORY - PSYCHIATRY [facility] [place] [facility] Dec 09, 2023 03:00 PM AMBULATORY - PSYCHIATRY [facility] [place] [facility] Dec 25, 2023 11:00 AM AMBULATORY - PSYCHIATRY [facility] [place] [facility] Jan 01, 2024 01:30 PM AMBULATORY - MEDICINE [facility] [place] [facility] Jan 01, 2024 02:00 PM AMBULATORY - MEDICINE [facility] [place] [facility] Jan 02, 2024 02:00 PM AMBULATORY - REHAB MEDICIN E [facility] [place] [facility] Jan 21, 2024 02:30 PM AMBULATORY - PSYCHIATRY [place] [facility] [place] [facility] Jan 21, 2024 02:31 PM AMBULATORY - PSYCHIATRY [place] [facility] [place] [facility] Feb 05, 2024 11:00 AM AMBULATORY - REHAB MEDICIN E [facility] [place] [facility] Feb 05, 2024 01:30 PM [facility]UL[facility] Feb 26, 2024 01:00 PM [facility] - [facility]ICINE [facility] Advance Directives: All historical and current Section Date Range: From patient's date of to the date document was created. This section includes ALL of a patient's completed or amended [place] Advance and Rescinded Directives. 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
--- OUTSIDE RECORDS SUMMARY | 2024-09-01 14:56 | XMS_ITS | Encounter Summary ---
Author Name [facility] [place] Address [address] [place] [address] Care Team Providers Care Station Examiner Name Role Phone ERNESTO ARBOLEDA Primary Care [...] PART A August 12, 2008 PART A [id number] Dawson YOUNGER PATIENT MEDICARE (WNR) MEDICARE (M) PART B August 12, 2008 PART B [id number] [phone] Dawson YOUNGER PATIENT MEDICARE (WNR) MEDICARE (M) PART A August 12, 2008 PART A [id number] Dawson YOUNGER PATIENT MEDICARE (WNR) MEDICARE (M) PART A August 12, 2008 PART A [id number] Dawson YOUNGER PATIENT MEDICARE (WNR) MEDICARE (M) PART B August 12, 2008 PART B [id number] Dawson YOUNGER PATIENT MEDICARE (WNR) MEDICARE (M) PART B August 12, 2008 PART B [id number] [facility] Dawson YOUNGER PATIENT MEDICARE (WNR) MEDICARE (M) PART B August 12, 2008 PART B [id number] [phone] Dawson YOUNGER PATIENT MEDICARE (WNR) MEDICARE (M) PART A August 12, 2008 PART A [id number] Dawson YOUNGER PATIENT MEDICARE (WNR) MEDICARE (M) PART A August 12, 2008 PART A [id number] [phone] Dawson YOUNGER PATIENT MEDICARE (WNR) MEDICARE (M) PART B August 12, 2008 PART B [id number] Dawson YOUNGER PATIENT MEDICARE PART D (WNR) PRESCRIPT ION PART D Apr 14, 2015 PART D [id number] Dawson YOUNGER PATIENT UNICARE PREFERRED PROVIDER ORGANIZAT ION (PPO) [facility] N August 12, 2008 [id number] Dawson YOUNGER PATIENT [facility] MEDICARE SUPPLEMEN [place] WELLP OINT August 12, 2008 [id number] [phone] Dawson YOUNGER PATIENT UNICARE-G. I.C. MEDICAL EXPENSE (OPT/PROF ) [facility] August 12, 2008 [id number] [id number] Dawson YOUNGER PATIENT [employer] MEDICAL EXPENSE (OPT/PROF ) [facility] August 12, 2008 [id number] Dawson YOUNGER PATIENT Selected Encounter This section includes the information on record at [place] for the Encounter. 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 Date/Time Primary/Secondary Diagnosis Diagnosis Name Provider Source Nov 14, 2023 02:35 PM PRIMARY Capslr glaucoma w/pseudxf lens, right eye, moderate stage OSHINSKIE,CELENA ROYER J [place] [facility] [place] [facility] Nov 14, 2023 02:35 PM SECONDARY Capslr glaucoma w/pseudxf lens, left eye, moderate stage OSHINSKIE,CELENA ROYER J [place] [facility] [place] [facility] Plan of Treatment: Future Appointments (+ 6 months) and Future Tests (+/- 45 days) The Plan of Treatment section includes future care activities for the patient [facility] [place] [facility] This section includes future appointments and future orders which are active, pending or scheduled. Future Appointments This section includes appointments that were scheduled to occur 6 months from the date of the Encounter, up to a maximum of 20 appointments. The data comes from all [place] treatment facilities. Appointment Date/Time Appointment Type Appointme nt Facility Name Dec 01, 2023 08:30 AM AMBULATORY - PSYCHIATRY [place] [facility] [place] [facility] Dec 09, 2023 03:00 PM AMBULATORY - PS[facility]CHIATRY [facility] [place] [facility] Dec 25, 2023 11:00 AM AMBULATORY - PSYCHIATRY [facility] [place] [facility] Jan 01, 2024 01:30 PM AMBULATORY - MEDICINE [facility] [place] [facility] Jan 01, 2024 02:00 PM AMBULATORY - MEDICINE [facility] [place] [facility] Jan 02, 2024 02:00 PM AMBULATORY - REHAB MEDICIN E [facility] [place] [facility] Jan 21, 2024 02:30 PM AMBULATORY - PSYCHIATRY [facility] [place] [facility] Jan 21, 2024 02:31 PM AMBULATORY - PSYCHIATRY [facility] [place] [facility] Feb 05, 2024 11:00 AM AMBULATORY - REHAB MEDICIN E [facility] [place] [facility] Feb 05, 2024 01:30 PM AMBULATORY - MEDICINE [facility] [place] [facility] Feb 26, 2024 01:00 PM AMBULATORY - MEDICINE MISSY PEARL Apr 15, 2024 11:00 AM AMBULATORY - REHAB MEDICIN E [facility] [place] [facility] Apr 20, 2024 02:00 PM AMBULATORY - MEDICINE [facility] [place] [facility] Apr 22, 2024 10:00 AM AMBULATORY - MEDICINE [facility] [place] [facility] Apr 28, 2024 01:00 PM AMBULATORY - PSYCHIATRY [facility] [place] [facility] Apr 28, 2024 01:01 PM AMBULATORY - PSYCHIATRY [facility] [place] [facility] May 11, 2024 01:30 PM AMBULATORY - REHAB MEDICIN E [place] [facility] [place] [facility] Active, Pending, and Scheduled Orders This section includes a listing of several types of active, pending, and scheduled orders, including clinic medications orders, diagnostic test orders, procedure orders and consult orders; where the start date of the order is 45 days before the date of the Encounter or 45 days after the date of theEncounter. The data comes from all [place] treatment facilities. Test Date/Time Test Type Test Details Facility Name Dec 09, 2023 03:47 PM Consult Order [facility]OLOG[facility] Cons Manager Domestic's Choice [place] [facility] [place] [facility] Dec 12, 2023 11:03 AM Consult Order [facility]-SLE[facility] MEDICINE Cons Manager Domestic[facility] Choice [facility] Lab Results: +/- 30 days of the encounter This section includes the Chemistry and Hematology Lab Results on record with [place] for the patient. Radiology Reports and Pathology Reports are provided separately, in subsequent sections. Lab Results This section contains the Chemistry/Hematology Results that were resulted 30 days before or 30 daysafter the date of the Encounter. Date/Time Source Result Type Result - Unit Interpretation Reference Range Specimen Type Comment Nov 07, 2023 01:19 PM [facility] URINALYSIS URINE Specimen Type: URINE Comment: If Glucose = >500 and Ketones are positive, please alert the Physician. Ordering Provider: ERNESTO ARBOLEDA Report Released Date/Time: August 17, 2023 01:25 PM Reporting Lab: [address] [address] Performing Lab: [address] [address] UA COLOR Yellow Yellow UA APPEARANCE Turbid Clear UA GLUCOSE NEGATIVE mg/dL Negative UA KETONES NEGATIVE mg/dL Negative UA BLOOD NEGATIVE mg/dL Negative UA PROTEIN NEGATIVE mg/dL Negative UA NITRITE NEGATIVE mg/dL Negative UA BILIRUBIN NEGATIVE mg/dL Negative UA SPECIFIC GRAVITY 1.024 H 1.016-1.022 UA pH 6.0 5.0-9.0 UA UROBILINOGEN <2.0 mg/dL <2.0 UA LEUKOCYTE NEGATIVE Negative Nov 07, 2023 01:19 PM [place] MICROALBUMIN CREATININE RATIO PANEL URINE Specimen Type: URINE No comment entered. Ordering Provider: ERNESTO ARBOLEDA Report Released Date/Time: August 17, 2023 01:25 PM Reporting Lab: [address] [address] Performing Lab: [address] [address] MICROALBUMIN/CREATININE RATIO canc mg/g 0-29.9 MICROALBUMIN,QUANTITATIVE < 0.5 mg/dL RR UNAVAIL CREATININE URINE 128.85 mg/dL Nov 07, 2023 01:19 PM [facility] LIVER FUNCTION SERUM Specimen Type: SERUM No comment entered. Ordering Provider: ERNESTO ARBOLEDA Report Released Date/Time: August 17, 2023 01:25 PM Reporting Lab: [address] [address] Performing Lab: [address] [address] PROTEIN,TOTAL 6.4 g/dL 6.0-8.3 ALBUMIN 3.3 g/dL L 3.5-5.0 ALKALINE PHOSPHATASE 88 U/L 40-150 AST 16 U/L 5-34 ALT 24 U/L BILIRUBIN, TOTAL 0.4 mg/dL 0.2-1.2 Nov 07, 2023 01:19 PM [place] LIPID PANEL, NON FASTING SERUM Specim en Type: SERUM No comment entered. Ordering Provider: ERNESTO ARBOLEDA Report Released Date/Time: August 17, 2023 01:25 PM Reporting Lab: [facility] [address] [address] Performing Lab: [facility] [place] [facility] [address] [address] CHOLESTEROL 134 mg/dL TRIGLYCERIDE 235 mg/dL H 0-150 LDL calculated 41 mg/dL 0-129 CHOL/HDL 2.9 HDL CHOLESTEROL 46 mg/dL 40-60 Nov 07, 2023 01:19 PM [place] CALCIUM SERUM Sp ecimen Type: SERUM No comment entered. Ordering Provider: ERNESTO ARBOLEDA Report Released Date/Time: August 17, 2023 01:25 PM Reporting Lab: [facility] [address] Performing Lab: [facility] [address] CALCIUM 8.8 mg/dL 8.5-10.2 Nov 07, 2023 01:19 PM [place] HEMOGLOBIN A1C PANEL BLOOD Specimen T ype: [...] August 17, 2023 01:25 PM Reporting Lab: [facility] [address] [address] Performing Lab: [facility] [address] [address] HEMOGLOBIN A1C 5.9 H 4.0-5.6 Nov 07, 2023 01:19 PM [place] TSH SERUM Sp ecimen Type: SERUM No comment entered. Ordering Provider: ERNESTO ARBOLEDA Report Released Date/Time: August 17, 2023 01:25 PM Reporting Lab: [facility] [place] [facility] [address] Performing Lab: [facility] [address] TSH 1.16 u[IU]/mL 0.35-5.00 Nov 07, 2023 01:19 PM [place] MAGNESIUM SERUM Sp ecimen Type: SERUM No comment entered. Ordering Provider: ERNESTO ARBOLEDA Report Released Date/Time: August 17, 2023 01:25 PM Reporting Lab: [facility] [address] [address] Performing Lab: [facility] [address] [address] MAGNESIUM 1.9 mg/dL 1.6-2.6 Nov 07, 2023 01:19 PM [place] VITAMIN D (25-OH) SERUM Specimen Type: SERUM No comment entered. Ordering Provider: ERNESTO ARBOLEDA Report Released Date/Time: August 17, 2023 01:25 PM Reporting Lab: [address] [address] Performing Lab: [address] [address] VITAMIN D (25-OH) 28 ng/mL 20-50 Nov 07, 2023 01:19 PM [facility] VITAMIN B12 SERUM Specimen Type: SERUM No comment entered. Ordering Provider: ERNESTO ARBOLEDA Report Released Date/Time: August 17, 2023 01:25 PM Reporting Lab: [address] [address] Performing Lab: [address] [address] VITAMIN B12 424 pg/mL 200-900 Nov 07, 2023 01:19 PM [place] PT & INR (PROTIME) PLASMA Specimen Typ e: PLASMA No comment entered. Ordering Provider: ERNESTO ARBOLEDA Report Released Date/Time: August 17, 2023 01:25 PM Reporting Lab: [address] [address] Performing Lab: [address] [address] INR 1.1 PROTIME 11.9 s 10.0-13.1 Nov 07, 2023 01:19 PM [place] BASIC METABOLIC PANEL (non-fasting) SERUM Specimen Type: SERUM No comment entered. Ordering Provider: ERNESTO ARBOLEDA Report Released Date/Time: August 17, 2023 01:25 PM Reporting Lab: [address] [address] Performing Lab: [address] [address] UREA NITROGEN 19 mg/dL 7-25 GLUCOSE 99 mg/dL 65-100 SODIUM 139 mmol/L 135-145 POTASSIUM 4.3 mmol/L 3.5-5.0 CHLORIDE 105 mmol/L 100-110 CO2 29 meq/L 20-30 CREATININE, Serum 1.05 mg/dL 0.50-1.40 eGFR(CKD-EPI 2020) 72 mL/min >60 Nov 07, 2023 01:19 PM [place] CBC AND DIFF (AUTO) BLOOD Specimen Ty pe: BLOOD No comment entered. Ordering Provider: ERNESTO ARBOLEDA Report Released Date/Time: August 17, 2023 01:25 PM Reporting Lab: [address] [address] Performing Lab: [address] [address] WBC 6.90 10*3/uL 4.50-11.00 RBC 4.40 10*6/uL [...] 10*3/uL 0.00-0.00 Nov 07, 2023 01:19 PM [place] MICROSCOPIC AUTOMATED, URINE URINE Sp ecimen Type: URINE Comment: If Glucose = >500 and Ketones are positive, please alert the Physician. Ordering Provider: ERNESTO ARBOLEDA Report Released Date/Time: August 17, 2023 01:25 PM Reporting Lab: [facility] [address] [facility] [address] Performing Lab: [facility] [address] [address] UA WBC 0-5 /[HPF] 0-5 UA RBC 0-2 /[HPF] 0-3 UA AMORPHOUS CRYSTALS FEW /[HPF] Not Est ablished Social History: Smoking Status (Most current) and Tobacco Use (All prior to encounter date) This section includes the most current, and the historical, smoking and tobacco- related health factors from the [place] facility where the Encounter took place. Current Smoking Status This section includes the most current smoking, or tobacco-related health factor, from the [place] facility where the Encounter took place. Date/Time Current Smoking Status Comment Noemy esquivel Aug 06, 2023 01:17 PM VA-TOBACCO NEVER USED [facility] Advance Directives: All historical and current Section Date Range: From patient's date of to the date document was created. This section includes ALL of a patient's completed or amended [place] Advance and Rescinded Directives. The entries below indicate that a directive exists for the patient, but an actual copy is not included with this document. The data comes from all [place] facilities. Date Advance Directives Provider Source August 25, 2023 ADVANCE DIRECTIVE MICHELLE LEVINE [place] Encounter Notes: All associated encounter notes This [...] in December/ Jose Fisher OD Fee Basis Mechanical Engineering Specialist Signed: 11/14/2023 14:37 JOSE FISHER [place] [facility]
--- OUTSIDE RECORDS SUMMARY | 2024-09-01 14:56 | XMS_ITS | Encounter Summary ---
Author Name [place] Address [address] [place] [address] Care Team Providers Care Peoplesoft Consultant Name Role Phone ERNESTO ARBOLEDA Primary [...] PART A August 12, 2008 PART A [id number] [phone] Dawson YOUNGER PATIENT MEDICARE (WNR) MEDICARE (M) PART B August 12, 2008 PART B [id number] Dawson YOUNGER PATIENT MEDICARE (WNR) MEDICARE (M) PART A August 12, 2008 PART A [id number] [id number] Dawson YOUNGER PATIENT MEDICARE (WNR) MEDICARE (M) PART B August 12, 2008 PART B [id number] Dawson YOUNGER PATIENT MEDICARE (WNR) MEDICARE (M) PART A August 12, 2008 PART A [id number] [id number] [id number] Dawson YOUNGER PATIENT MEDICARE (WNR) MEDICARE (M) PART B August 12, 2008 PART B [id number] Dawson YOUNGER PATIENT MEDICARE (WNR) MEDICARE (M) PART B August 12, 2008 PART B [id number] Dawson YOUNGER PATIENT MEDICARE (WNR) MEDICARE (M) PART A August 12, 2008 PART A [id number] [phone] Dawson YOUNGER PATIENT MEDICARE (WNR) MEDICARE (M) PART A August 12, 2008 PART A [id number] Dawson YOUNGER PATIENT MEDICARE (WNR) MEDICARE (M) PART B August 12, 2008 PART B [id number] [id number] [id number] Dawson YOUNGER PATIENT MEDICARE PART D (WNR) PRESCRIPT ION PART D Apr 14, 2015 PART D [id number] Dawson YOUNGER PATIENT UNICARE PREFERRED PROVIDER ORGANIZAT ION (PPO) [facility] N August 12, 2008 [id number] Dawson YOUNGER PATIENT [facility] MEDICARE [facility] August 12, 2008 [id number] Dawson YOUNGER PATIENT UNICARE-G. I.C. MEDICAL EXPENSE (OPT/PROF ) [facility] IN[facility] N August 12, 2008 [id number] [id number] Dawson YOUNGER PATIENT [employer] MEDICAL EXPENSE (OPT/PROF ) [facility] IN[facility] N August 12, 2008 [id number] Dawson YOUNGER PATIENT Selected Encounter This section includes the information on record at [place] for the Encounter. Date/Time Encounter Type Encounter Description Reason Provider Source Feb 26, 2024 01:00 PM OFFICE O/P EST MOD 30 MIN PRIMARY CARE/MEDICINE ICD-10-CM F03.B4 Unspecified dementia, moderate, with anxiety ERNESTO ARBOLEDA Javad Encounter Template Text not used by [place] Assessments - Encounter Diagnoses This section includes the primary and secondary diagnoses documented for the Encounter. Date/Time Primary/Secondary Diagnosis Diagnosis Name Provider Source Mar 14, 2024 08:40 AM PRIMARY Unspecified dementia, moderate, with anxiety ERNESTO ARBOLEDA LOYAL Mar 14, 2024 08:40 AM SECONDARY Athscl heart disease of [place] coronary artery w/o ang pctrs ERNESTO ARBOLEDA LOYAL Mar 14, 2024 08:40 AM SECONDARY Chronic kidney disease, stage 3 unspecified ERNESTO ARBOLEDA LOYAL Mar 14, 2024 08:40 AM SECONDARY Chronic obstructive pulmonary disease, unspecified ERNESTO ARBOLEDA LOYAL Mar 14, 2024 08:40 AM SECONDARY Chronic respiratory failure with hypoxia ERNESTO ARBOLEDA LOYAL Mar 14, 2024 08:40 AM SECONDARY Gastro-esophageal reflux disease without esophagitis ERNESTO ARBOLEDA LOYAL Mar 14, 2024 08:40 AM SECONDARY Generalized anxiety disorder ERNESTO ARBOLEDA LOYAL Mar 14, 2024 08:40 AM SECONDARY 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 ERNESTO ARBOLEDA LOYAL Mar 14, 2024 08:40 AM SECONDARY Obstructive sleep apnea (adult) (pediatric) ERNESTO ARBOLEDA LOYAL Mar 14, 2024 08:40 AM SECONDARY Paroxysmal atrial fibrillation ERNESTO ARBOLEDA LOYAL Mar 14, 2024 08:40 AM SECONDARY Post-traumatic stress disorder, unspecified ERNESTO ARBOLEDA LOYAL Mar 14, 2024 08:40 AM SECONDARY Pure hyperglyceridemia ERNESTO ARBOLEDA LOYAL Mar 14, 2024 08:40 AM SECONDARY Transient cerebral ischemic attack, unspecified ERNESTO ARBOLEDA LOYAL Plan of Treatment: Future Appointments (+ 6 months) and Future Tests (+/- 45 days) The Plan of Treatment section includes future care activities for the patient from all [place] treatmentfacilities. This section includes future appointments and [...] REHAB MEDICIN E [facility] [place] [facility] Apr 20, 2024 02:00 PM AMBULATORY - MEDICINE [facility] [place] [facility] Apr 22, 2024 10:00 AM AMBULATORY - MEDICINE [facility] [place] [facility] Apr 28, 2024 01:00 PM AMBULATORY - PSYCHIATRY [facility] [place] [facility] Apr 28, 2024 01:01 PM AMBULATORY - PSYCHIATRY [facility] [place] [facility] May 11, 2024 01:30 PM AMBULATORY - REHAB MEDICIN E [facility] [place] [facility] May 26, 2024 03:00 PM AMBULATORY - PSYCHIATRY [facility] [place] [facility] May 26, 2024 03:01 PM AMBULATORY - PSYCHIATRY [facility] [place] [facility] Jun 22, 2024 01:00 PM [facility] Jun 22, 2024 03:00 PM AMBULATORY - NONE [facility] [place] [facility] Jul 27, 2024 10:30 AM AMBULATORY - MEDICINE [place] [facility] [place] [facility] Vital Signs: All taken on the encounter date This section contains inpatient and outpatient Vital Signs collected on the date of the Encounter. Date/Time Temperature Pulse Blood Pressure Respiratory Rate SP02 Pain Height Weight Body Mass Index Source Feb 26, 2024 01:11 PM 97.2 56 109/58 94 183.2 26 [place] Advance Directives: All historical and current [...] 03/14/2024 08:41 Receipt Acknowledged By: 03/15/2024 10:02 /es/ ANNA RUEDA [employer] COLLECTIONS OFFICER ======== --- Original Document --- 02/26/24 NURSE PRACTITIONER OUTPATIENT NOTE: PRIMARY CARE VISIT SHANICE YOUNGER, is a 78 yo WHITE MALE [place] who [facility] [place] [facility]. TYPE OF VISIT: Face to face [...] He has obtained new hearing aids from [place] audiology. He underwent TTE 08/18/2023 which found [...] HEALTHCARE PROVIDERS: Community PCP: BETINA Ulloa Audiology: [place] Dermatology: [place] MH: [place], Dr. Hernandez Optometry: [place] Pulmonology: Kaitlynn Muhammad NP Social Hx: The is and lives [...] ERNESTO ARBOLEDA GERD - Gastro-Esophageal Reflux Dis 08/08/2023ERNESTO MINOR VITAL SIGNS: Temperature 97.2 F [36.2 C] [...] with Dr. Diana since moving here from [place]. Continue [facility]. CAD: Long-term use of anticoagulant: PAF [...] PTSD - Post-traumatic stress disorder: Following with [facility]. Obstructive sleep apnea: PSG in November found AHI 20.7. Recommended continuing CPAP which he endorses using at least 4 hours nightly most of the time. CKD stage 3: Stable. Avoid nephrotoxic agents. Advised to drink plenty of water. Not currently following with nephrology. Bilateral hearing loss: He has since obtained new hearing aids from [place] [facility]iology and is wearing them today. Reports much improvement. GERD - Gastro-Esophageal Reflux Disease ([facility] [id number]): Asymptomatic since starting PPI. Continue omeprazole. Hypertriglyceridemia: Triglycerides noted to be elevated to 235 with normal total cholesterol and LDL. Agrees to start fenofibrate as he was intolerant of atorvastatin. 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 06/22/2024 15:00 COM CARE-REGISTRATION MANAGER MEDC 09/14/2024 14:30 NH[facility]/OPTOMETRY/MILLER/ 40 minutes spent [...] 03/14/2024 08:39 03/15/2024 ADDENDUM STATUS: COMPLETED THIS HEALTH PSYCHOLOGIST FAXED OVER OFFICE NOTE, EKG and MRI REPORT TO [place] [phone] MAYUR MOFFETT /gurwinder/ ANNA RUEDA ADVANCE COLLECTIONS OFFICER Signed: 03/15/2024 10:02 ERNESTO ARBOLEDA LOYAL Feb 26, 2024 01:36 PM PRIMARY CARE NURSE PRACTITIONER OUTPATIENT NOTE: LOCAL TITLE: NURSE PRACTITIONER OUTPATIENT NOTE STANDARD TITLE: PRIMARY CARE NURSE PRACTITIONER OUTPATIENT NOTE DATE OF NOTE: FEB 26, 2024@13:36 ENTRY DATE: FEB 26, 2024@13:36:50 AUTHOR: ERNESTO ARBOLEDA COSIGNER: URGENCY: STATUS: COMPLETED NURSE PRACTITIONER OUTPATIENT NOTE Has ADDENDA PRIMARY CARE VISIT SHANICE YOUNGER, is a 78 yo WHITE MALE [place] who [place] [facility]. TYPE OF VISIT: Face to face [...] He has obtained new hearing aids from [place] [facility]. He underwent TTE 08/18/2023 which found [...] and diagnostic studies were reviewed with the [place] including noting elevated triglycerides to 235 with normal LDL and cholesterol. All medications were reconciled during this visit. HEALTHCARE PROVIDERS: Community PCP: BETINA Ulloa Audiology: [place] Dermatology: [place] MH: Dr. Anabela NAVA Optometry: [place] Pulmonology: Kaitlynn Muhammad NP Social Hx: The is and lives [...] with Dr. Diana since moving here [facility] [place]. [facility]: Long-term use of anticoagulant: PAF - [...] PTSD - Post-traumatic stress disorder: Following with [facility]. Obstructive sleep apnea: PSG in November found AHI 20.7. Recommended continuing CPAP which he endorses using at least 4 hours nightly most of the time. CKD stage 3: Stable. Avoid nephrotoxic agents. Advised to drink plenty of water. Not currently following with nephrology. Bilateral hearing loss: He has since obtained new hearing aids from [place] [facility] and is wearing them today. Reports much improvement. GERD - Gastro-Esophageal Reflux Disease ([facility] [id number]): Asymptomatic since starting PPI. Continue omeprazole. Hypertriglyceridemia: Triglycerides noted to be elevated to 235 with normal total cholesterol and LDL. Agrees to start fenofibrate as he was intolerant of atorvastatin. 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
--- OUTSIDE RECORDS SUMMARY | 2024-09-01 14:57 | XMS_ITS | Encounter Summary ---
Author Name [facility] [place] Organization [facility] [place] Address [address] [place] [address] Care Team Providers Care Special Events Manager Name Role Phone ERNESTO ARBOLEDA Primary [...] PART A August 12, 2008 PART A [id number] [phone] Dawson YOUNGER PATIENT MEDICARE (WNR) MEDICARE (M) PART B August 12, 2008 PART B [id number] [phone] Dawson YOUNGER PATIENT MEDICARE (WNR) MEDICARE (M) PART A August 12, 2008 PART A [id number] Dawson YOUNGER PATIENT MEDICARE (WNR) MEDICARE (M) PART B August 12, 2008 PART B [id number] Dawson YOUNGER PATIENT MEDICARE (WNR) MEDICARE (M) PART A August 12, 2008 PART A [id number] Dawson YOUNGER PATIENT MEDICARE (WNR) MEDICARE (M) PART B August 12, 2008 PART B [id number] Dawson YOUNGER PATIENT MEDICARE (WNR) MEDICARE (M) PART B August 12, 2008 PART B [id number] [phone] Dawson YOUNGER PATIENT MEDICARE (WNR) MEDICARE (M) PART A August 12, 2008 PART A [id number] Dawson YOUNGER PATIENT MEDICARE (WNR) MEDICARE (M) PART A August 12, 2008 PART A [id number] Dawson YOUNGER PATIENT MEDICARE (WNR) MEDICARE (M) PART B August 12, 2008 PART B [id number] Dawson YOUNGER PATIENT MEDICARE PART D (WNR) PRESCRIPT ION PART D Apr 14, 2015 PART D [id number] [phone] Dawson YOUNGER PATIENT UNICARE PREFERRED PROVIDER ORGANIZAT ION (PPO) [facility] August 12, 2008 [id number] Dawson YOUNGER PATIENT UNICARE [facility]IC[facility] August 12, 2008 [id number] [phone] Dawson YOUNGER PATIENT UNICARE-G. I.C. MEDICAL EXPENSE (OPT/PROF ) [facility] August 12, 2008 [id number] [id number] [phone] Dawson YOUNGER PATIENT WELLPOINT MEDICAL EXPENSE (OPT/PROF ) [facility] August 12, 2008 [id number] Dawson YOUNGER PATIENT Selected Encounter This section includes the information on record at [place] for the Encounter. Date/Time Encounter Type Encounter Description Reason Pro vider Source Sep 26, 2023 12:33 PM Outpatient Encounter ADMIN PAT ACTIVTIES (MASNONCT) IHE Encounter Template Text not used by [place] Plan of Treatment: Future Appointments (+ 6 months) and Future Tests (+/- 45 days) The Plan of Treatment section includes future care activities for the patient from all [place] treatmentfacilities. This section includes future appointments and [...] AMBULATORY - NONE [facility] [place] [facility] Oct 30, 2023 02:30 PM AMBULATORY [facility] MEDICINE [facility] Nov 07, 2023 01:00 PM AMBULATORY - [facility]AB [facility] Nov 13, 2023 10:00 AM AMBULATORY - PSYCHIATRY [facility] [place] [facility] Nov 13, 2023 02:00 PM AMBULATORY - MEDICINE [facility] [place] [facility] Nov 14, 2023 01:00 PM AMBULATORY - MEDICINE [facility] [place] [facility] Nov 14, 2023 02:00 PM AMBULATORY - MEDICINE [facility] [place] [facility] Dec 01, 2023 08:30 AM AMBULATORY - PSYCHIATRY [facility] [place] [facility] Dec 09, 2023 03:00 PM AMBULATORY - PS[facility]CHIATRY [facility] [place] [facility] Dec 25, 2023 11:00 AM AMBULATORY - PSYCHIATRY [facility] [place] [facility] Jan 01, 2024 01:30 PM AMBULATORY - MEDICINE [facility] [place] [facility] Jan 01, 2024 02:00 PM AMBULATORY - MEDICINE [facility] [place] [facility] Jan 02, 2024 02:00 PM AMBULATORY - REHAB MEDICIN E [facility] [place] [facility] Jan 21, 2024 02:30 PM AMBULATORY - PSYCHIATRY [facility] [place] [facility] Jan 21, 2024 02:31 PM AMBULATORY - PSYCHIATRY [facility] [place] [facility] Feb 05, 2024 11:00 AM AMBULATORY - REHAB MEDICIN E [facility] [place] [facility] Feb 05, 2024 01:30 PM AMBULATORY - MEDICINE [facility] Feb 26, 2024 01:00 PM AMBULATORY - MEDICINE [facility] Advance Directives: All historical and [...] 91 ASSESSMENT/PLAN: Other: states [place] [facility]. Will alert Pharmacist to remove from clinic. [...] monitor and assess /gurwinder/ VERA GUTIERREZ Clinical Throat Cutter Signed: 09/26/2023 12:36 Receipt Acknowledged By: 09/26/2023 12:43 /gurwinder/ Nesha CADED Clinical Pharmacist VERA GUTIERREZ [facility]
--- OUTSIDE RECORDS SUMMARY | 2024-09-01 14:57 | XMS_ITS | Referral Summary ---
Author Organization [facility] Address [address] [place] [address] Care Team Providers Care Agricultural Research Engineer Name Role Phone Betzaida Roberson Primary Care Provider [phone] Encounters Date Type Department Care Team Description 06/21/2024 Results Follow-Up [facility] [address], [place] [phone] Radiotelegraph Operator: Zeny Sawyer MD 06/14/2024 3:00 PM EST Office Visit [facility] [address], [place] [phone] Radiotelegraph Operator: Magnolia Saenz MD PhD Dermatitis (Primary Dx) [...] Not on file Procedures * Due to [place] law, this organization might not be sharing negative HIV tests. Procedure Name Priority Date/Time Associated Diagnosis Comments TISSUE EXAM Routine 06/14/2024 3:41 PM EST Dermatitis from Last 3 Months Results * Due to [place] law, this organization might not be sharing negative HIV tests. * Tissue Exam (06/14/2024 3:41 PM EST) Final Diagnosis Skin, Left Inner Distal Thigh, Punch Biopsy: -Granuloma annulare. Comment: Additional levels are examined. A PAS stain is negative for fungal forms. 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 Skin, Left inner distal thigh The specimen is received in formalin labeled left inner distal thigh and consists of a 0.4 cm henriquez skin punch excised to a depth of 0.4 cm which is inked, bisected and entirely submitted in cassette 1A. [facility] MANUAL 06/16/2024 1:14 PM EST [facility] Gross Description User Grossing complete by Sherif Garcia on 06/15/2024 10:55 AM [facility] MANUAL 06/16/2024 1:14 PM EST [facility] Embedded Images [facility] MANUAL 06/16/2024 1:14 PM EST [facility] Disclaimer Some of these tests were developed and their performance characteristics determined by the Immunoperoxidase/ Histology Laboratory of [facility]. They have not been cleared or approved [...] to perform high complexity clinical laboratory testing. [facility] MANUAL 06/16/2024 1:14 PM EST [facility] Resulting Agency Case was signed out at [facility], Department of Pathology, Biotech 3 CLIA [id number] [facility] MANUAL 06/16/2024 1:14 PM EST [facility] Report Header Surgical Pathology Report ? Case: [id number] ? Authorizing Provider: ??Magnolia Cassidy MD PhD ? Collected: ? 06/14/2024 1541 ? Ordering Location: ? [facility] ? Received: ?06/14/2024 1722 ? [facility] ? Dermatology Clinic 4th ? Floor ? Pathologist: ? Talat Buckner MD PhD ? Specimen: ?Skin, Left inner distal thigh ? 06/16/2024 1:14 PM EST [facility] Skin Specimen from skin / Unknown 06/14/2024 3:41 PM EST 06/14/2024 5:22 PM EST us Magnolia Cassidy MD PhD LAB PATHOLOGY/CYTOLOGY ORDER GAMALIEL Final Result [facility] [address] [place] [phone], from Last 3 Months Insurance MEDICARE [facility] Care Teams Agricultural Research Engineer Relationship Specialty Start Date End Date Betzaida Roberson [address] [place] [address] PCP - General Family Medicine 12/26/23
--- OUTSIDE RECORDS SUMMARY | 2024-09-01 14:57 | XMS_ITS | Encounter Summary ---
Author Name [facility] [place] Organization [facility] [place] Address [address] [place] [address] Care Team Providers Care Institute Director Name Role Phone ERNESTO ARBOLEDA Primary Care [...] Policy Burkett's Name Patient's Relationship to Policy [place] MEDICARE (WNR) MEDICARE (M) PART A August 12, 2008 PART A [id number] [phone] Dawson YOUNGER PATIENT MEDICARE (WNR) MEDICARE (M) PART B August 12, 2008 PART B [id number] Dawson YOUNGER PATIENT MEDICARE (WNR) MEDICARE (M) PART A August 12, 2008 PART A [id number] Dawson YOUNGER PATIENT MEDICARE (WNR) MEDICARE (M) PART B August 12, 2008 PART B [id number] [phone] Dawson YOUNGER PATIENT MEDICARE (WNR) MEDICARE (M) PART A August 12, 2008 PART A [id number] Dawson YOUNGER PATIENT MEDICARE (WNR) MEDICARE (M) PART B August 12, 2008 PART B [id number] Dawson YOUNGER PATIENT MEDICARE (WNR) MEDICARE (M) PART A August 12, 2008 PART A [id number] Dawson YOUNGER PATIENT MEDICARE (WNR) MEDICARE (M) PART B August 12, 2008 PART B [id number] Dawson YOUNGER PATIENT MEDICARE (WNR) MEDICARE (M) PART A August 12, 2008 PART A [id number] Dawson YOUNGER PATIENT MEDICARE (WNR) MEDICARE (M) PART B August 12, 2008 PART B [id number] Dawson YOUNGER PATIENT MEDICARE PART D (WNR) PRESCRIPT ION PART D Apr 14, 2015 PART D [id number] Dawson YOUNGER PATIENT UNICARE PREFERRED PROVIDER ORGANIZAT ION (PPO) [facility] August 12, 2008 [id number] [phone] Dawson YOUNGER PATIENT UNICARE MEDICARE [facility] August 12, 2008 [id number] Dawson YOUNGER PATIENT UNICARE-G. I.C. MEDICAL EXPENSE (OPT/PROF ) [facility] August 12, 2008 [id number] Dawson YOUNGER PATIENT WELLPOINT MEDICAL EXPENSE (OPT/PROF ) [facility] August 12, 2008 [id number] Dawson YOUNGER PATIENT Selected Encounter This section includes the information on record at [place] for the Encounter. Date/Time Encounter Type Encounter Description Reason Provider Source Apr 28, 2024 01:01 PM OFFICE O/P EST LOW 20 [facility] - IND ICD-10-CM F43.10 Post-traumatic stress disorder, unspecified LIU HERNANDEZ Javad Encounter Template Text not used by [place] Assessments - Encounter Diagnoses This section includes the primary and secondary diagnoses documented for the Encounter. Date/Time Primary/Secondary Diagnosis Diagnosis Name Provider Source Apr 28, 2024 01:30 PM PRIMARY Post-traumatic stress disorder, unspecified LIU HERNANDEZ SONYA Apr 28, 2024 01:30 PM SECONDARY Insomnia, unspecified LIU HERNANDEZ SONYA Apr 28, 2024 01:30 PM SECONDARY Unspecified dementia, moderate, with anxiety LIU HERNANDEZ Plan of Treatment: Future Appointments (+ 6 months) and Future Tests (+/- 45 days) The Plan of Treatment section includes future care activities for the patient from all [place] treatmentfacilities. This section includes future appointments and future orders which are active, pending or scheduled. Future Appointments This section includes appointments that were scheduled to occur 6 months from the date of the Encounter, up to a maximum of 20 appointments. The data comes from all [place] treatment facilities. Appointment Date/Time Appointment Type Appointme nt Facility Name May 11, 2024 01:30 PM AMBULATORY - [facility]AB MEDICIN E [facility] [place] [facility] May 26, 2024 03:00 PM AMBULATORY - PSYCHIATRY [facility] [place] [facility] May 26, 2024 03:01 PM AMBULATORY - PSYCHIATRY [facility] [place] [facility] Jun 22, 2024 01:00 PM [facility] Jun 22, 2024 03:00 PM AMBULATORY - NONE [facility] [place] [facility] Jul 27, 2024 10:30 AM AMBULATORY - MEDICINE [facility] [place] [facility] Sep 14, 2024 02:00 PM AMBULATORY - MEDICINE [facility] [place] [facility] Sep 14, 2024 02:30 PM AMBULATORY - MEDICINE [facility] [place] [facility] Oct 19, 2024 01:00 PM AMBULATORY - MEDICINE [place] [facility] [place] [facility] Advance Directives: All historical and current Section Date Range: From patient's date of to the date document was created. This section includes ALL of a patient's completed or amended VA Advance and Rescinded Directives. The entries below indicate that a directive exists for the patient, but an actual copy is not included with this document. The data comes from all [place] facilities. Date Advance Directives Provider Source August 25, 2023 ADVANCE DIRECTIVE JULIANNAMICHELLE Levi [facility] [place] Radiology Reports: +/- 30 days of the [...] the Encounter. The data comes from all [place] treatment facilities. Date/Time Radiology Report Provider Source Apr 22, 2024 10:00 AM OUTSIDE MRI BRAIN (C-) CPT 45966: SHANICE YOUNGER [id number] -[phone] M Ex Date: APR 22, 2024@10:00 Req Phys: ERNESTO ARBOLEDA Loc: SPR PACT 1 LAUNDRY FOLDER (Req'g Loc) Img Loc: OUTSIDE GENERAL RADIOLOGY Service: Unknown (Case [id number] COMPLETE) OUTSIDE MRI BRAIN (C-) CPT 04995 (RAD Detailed) CPT:36485 Reason for Study: Dementia. study requested by neurology Clinical History: Report Status: Electronically Filed Date Reported: APR 22, 2024 Report: Community care exam; see CPRS/JLV for outside radiology report/results Impression: Community care exam; see CPRS/JLV for outside radiology report/results Primary Diagnostic Code: VERIFIED BY: / *ELECTRONICALLY FILED* [place] [facility] [place] [facility] Encounter Notes: All associated encounter [...] a CVT visit, patient was in the [facility] and seen by myself remotely from my home via synchronous telehealth equipment operated from the clinic with staff assistance. [place] gave their permission to hold visit via this equipment. CHART REVIEW: seen for initial MH consult 09/23/23, noting: is an 78 year old , , 100% [place] looking to transfer his PTSD treatment from [place] to here after relocating. He is only [...] about balance and falling. He shared with fha underwriter an acute injury where he injured his back about two weeks ago and did not go to the ER to be evaluated. Senior Ecologist will place neuropsychological consult to assess his cognition and advised him to stop to be triaged by the nurse on his way out to assess his back injury. Still gets nightmares-- maybe once a month. Tries to avoid things that will remind him of it. DSM5 DIAGNOSES: PTSD, chronic SC: 70% for PTSD. Per Social Work intake, reported: We were living in [place] for 18yrs, in [place], the weather just became too difficult for me bc of my breathing. I was in the hospital for a week last year bc of my COPD and asthma. When I told my that I thought it was time to move back, she didn't waste a minute to call her friends and tell them, she is very happy. They bought a home in [place], the same city they used to live in. They have friends and family here, some of their children and grandchildren are in [facility]. SC: POST-TRAUMATIC STRESS DISORDER (70%-SC) PRESENTATION AT TIME OF INITIAL VISIT WITH MYSELF 11/13/23: [place] reports he and his moved from [place] in July 2023, noting he was originally from [facility] but moved to [place] after he retired and has returned here [...] CCB for ventricular rate control. + Agent [place] exposure Then noted October 2023: 2. Chronic hypoxemic respiratory failure: 3. COPD - Chronic obstructive pulmonary disease: 2 L O2 dependent at all times although frequently nonadherent according to his . Not using oxygen during the visit. SPO2 ranging from 90 to 97% but mostly around 93%. Sees [facility] in [place] prior to moving here and was maintained [...] Followed with [facility] cardiology Dr. Guardado in [place]. Cardiology 1 consult placed today for continuation of care. informs that he had an echocardiogram last year but does not have that result. No records yet from Dr. Guardado in [place]. 5. PTSD - Post-traumatic stress disorder: Following with [facility]. 6. Obstructive sleep apnea 7. CKD stage 3: Unknown if stable. Getting labs today. 8. FAYE - Generalised anxiety disorder: Upcoming initial appointment with [facility] H/. 9. Cognitive decline 10. CAD - Coronary Artery Disease ([facility] [id number]): Maintained on statin, BB, DOAC. Continued. 11. Exposure to potentially hazardous substance 12. Glaucoma: Followed by [place] optometry. 13. Insomnia 14. Bilateral hearing loss 15. GERD - Gastro-Esophageal Reflux Disease ([facility] [id number]): Asymptomatic since starting PPI. Continue omeprazole. 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 He also demonstrated weaknesses in processing speed, semantic/phonemic verbal fluency abilities, and with completing tasks of higher-level cognitive functioning (e.g., utilizing processing speed and working memory simultaneously on the [place] Making Tests). Based on the results of the current neuropsychological evaluation, the [place] met DSM-5 criteria for a major neurocognitive [...] given the cognitive declines demonstrated by the [place], it is recommended that he continue to refrain from driving or if he wishes to begin driving again, undergo a driving evaluation to determine whether he has the skills and abilities to continue to drive safely. A handout of facilities that conduct these types of evaluations will be given to the [place] during the feedback session and can be found at the following website: [email or web address] 12. Alcohol is known to have a negative impact on brain health. It is recommended that the reduce his alcohol consumption or ideally abstain from alcohol INITIAL ASSESSMENT/ DIAGNOSIS AND RECOMMENDATIONS: [place] presents with chronic PTSD with partial improvement [...] If urgent treatment is needed, call [phone] or go to the nearest Emergency Room 2. To schedule or change an appointment, inquire about medication refills, etc: call office number during normal office hours Diagnoses: PTSD - Post-traumatic stress disorder (SCT [id number]) - Post-traumatic stress disorder, unspecified (ICD-10-CM F43.10) (Primary) Insomnia (SCT [id number]) - Insomnia, unspecified (ICD-10-CM G47.00) Dementia ([facility] [id number]) - Unspecified dementia, moderate, with anxiety (ICD-10- CM F03.B4) /gurwinder/ LIU HERNANDEZ M.D. Signed: 04/28/2024 13:33 LIU HERNANDEZ
--- OUTSIDE RECORDS SUMMARY | 2024-09-01 14:57 | XMS_ITS | Clinical Summary ---
Author Organization [facility] Address [address] [place] [address] Care Team Providers Care Flight Crew Scheduler Name Role Phone Betzaida Roberson Primary Care Provider [phone] Allergies No known active allergies Medications albuterol [...] Department Care Team Description 06/21/2024 Results Follow-Up [facility] [address]th [address] [place] [address], [place] [address] Phlebotomy Tech: Zeny Sawyer MD 06/14/2024 3:00 PM EST Office Visit [facility] 4th Floor [address] [facility], [place] [address] Phlebotomy Tech: Magnolia Saenz MD PhD Dermatitis (Primary Dx) [...] complete this topic Procedures * Due to [place] state law, this organization might not be sharing negative HIV tests. Procedure Name Priority Date/Time Associated Diagnosis Comments TISSUE EXAM Routine 06/14/2024 3:41 PM EST Dermatitis from Last 3 Months Results * Due to [place] law, this organization might not be sharing negative HIV tests. * Tissue Exam (06/14/2024 3:41 PM EST) Final Diagnosis Skin, Left Inner Distal Thigh, Punch Biopsy: -Granuloma annulare. Comment: Additional levels are examined. A PAS stain is negative for fungal forms. 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 Skin, Left inner distal thigh The specimen is received in formalin labeled left inner distal thigh and consists of a 0.4 cm henriquez skin punch excised to a depth of 0.4 cm which is inked, bisected and entirely submitted in cassette 1A. [facility] MANUAL 06/16/2024 1:14 PM EST [facility] Gross Description User Grossing complete by Sherif Garcia on 06/15/2024 10:55 AM [facility] MANUAL 06/16/2024 1:14 PM EST [facility] ANATOMIC PATHOLOGY LABORATORY Embedded Images [facility] MANUAL 06/16/2024 1:14 PM EST [facility] Disclaimer Some of these tests were developed and their performance characteristics determined by the Immunoperoxidase/ Histology Laboratory of [facility]. They have not been cleared or approved [...] to perform high complexity clinical laboratory testing. [facility] MANUAL 06/16/2024 1:14 PM EST [facility] Resulting Agency Case was signed out at [facility], Department of Pathology, Biotech 3 CLIA [id number] [facility] MANUAL 06/16/2024 1:14 PM EST [facility] Report Header Surgical Pathology Report ? Case: [id number] ? Authorizing Provider: ??Magnolia Cassidy MD PhD ? Collected: ? 06/14/2024 1541 ? Ordering Location: ? [facility] ? Received: ?06/14/2024 1722 ? [facility] ? Dermatology Clinic 4th ? Floor ? Pathologist: ? Talat Buckner MD PhD ? Specimen: ?Skin, Left inner distal thigh ? 06/16/2024 1:14 PM EST [facility] Skin Specimen from skin / Unknown 06/14/2024 3:41 PM EST 06/14/2024 5:22 PM EST us Magnolia Cassidy MD PhD LAB PATHOLOGY/CYTOLOGY ORDER GAMALIEL Final Result [facility] [address] [place] [id number], from Last 3 Months Insurance MEDICARE [facility] Care Teams Flight Crew Scheduler Relationship Specialty Start Date End Date KarolBetzaida [address] [place] [address] PCP - General Family Medicine 12/26/23
--- OUTSIDE RECORDS SUMMARY | 2024-09-01 14:57 | XMS_ITS | Encounter Summary ---
Author Name [place] Address [address] [place] [address] Care Team Providers Care Sandstone Splitter Name Role Phone ERNESTO ARBOLEDA Primary Care [...] PART A August 12, 2008 PART A [id number] [phone] Dawson YOUNGER PATIENT MEDICARE (WNR) MEDICARE (M) PART B August 12, 2008 PART B [id number] [phone] Dawson YOUNGER PATIENT MEDICARE (WNR) MEDICARE (M) PART A August 12, 2008 PART A [id number] [phone] Dawson YOUNGER PATIENT MEDICARE (WNR) MEDICARE (M) PART B August 12, 2008 PART B [id number] [facility] Dawson YOUNGER PATIENT MEDICARE (WNR) MEDICARE (M) PART A August 12, 2008 PART A [id number] Dawson YOUNGER PATIENT MEDICARE (WNR) MEDICARE (M) PART B August 12, 2008 PART B [id number] Dawson YOUNGER PATIENT MEDICARE (WNR) MEDICARE (M) PART B August 12, 2008 PART B [id number] [facility] [phone] Dawson YOUNGER PATIENT MEDICARE (WNR) MEDICARE (M) PART A August 12, 2008 PART A [id number] [facility] Dawson YOUNGER PATIENT MEDICARE (WNR) MEDICARE (M) PART A August 12, 2008 PART A [id number] [facility] [phone] Dawson YOUNGER PATIENT MEDICARE (WNR) MEDICARE (M) PART B August 12, 2008 PART B [id number] [facility] Dawson YOUNGER PATIENT MEDICARE PART D (WNR) PRESCRIPT ION PART D Apr 14, 2015 PART D [id number] [facility] Dawson YOUNGER PATIENT UNICARE PREFERRED PROVIDER ORGANIZAT ION (PPO) [facility] August 12, 2008 [id number] Dawson YOUNGER PATIENT UNICARE MEDICARE SUPPLEMEN FARHAD WELLP OINT August 12, 2008 [id number] [phone] [id number] Dawson YOUNGER PATIENT UNICARE-G. I.C. MEDICAL EXPENSE (OPT/PROF ) [facility] August 12, 2008 [id number] [phone] [id number] Dawson YOUNGER PATIENT WELLPOINT MEDICAL EXPENSE (OPT/PROF ) [facility] N August 12, 2008 [id number] Dawson YOUNGER PATIENT Selected Encounter This section includes the information on record at [place] for the Encounter. Date/Time Encounter Type Encounter Description Reason Pro vider Source Dec 25, 2023 11:00 AM Outpatient Encounter MENTAL [facility] Encounter Template Text not used by [place] Plan of Treatment: Future Appointments (+ 6 months) and Future Tests (+/- 45 days) The Plan of Treatment section includes future care activities for the patient from all [place] [facility]. This section includes future appointments and future orders which are active, pending or scheduled. Future Appointments This section includes appointments that were scheduled to occur 6 months from the date of the Encounter, up to a maximum of 20 appointments. The data comes from all [place] treatment facilities. Appointment Date/Time Appointment Type Appointme nt Facility Name Jan 01, 2024 01:30 PM AMBULATORY - MEDICINE [place] [facility] [place] [facility] Jan 01, 2024 02:00 PM AMBULATORY - MEDICINE [place] [facility] [place] [facility] Jan 02, 2024 02:00 PM AMBULATORY - REHAB MEDICIN E [place] [facility] [place] [facility] Jan 21, 2024 02:30 PM AMBULATORY - PSYCHIATRY [facility] [place] [facility] Jan 21, 2024 02:31 PM AMBULATORY - PSYCHIATRY [facility] [place] [facility] Feb 05, 2024 11:00 AM AMBULATORY - REHAB MEDICIN E [facility] [place] [facility] Feb 05, 2024 01:30 PM AMBULATORY - MEDICINE [place] [facility] [place] [facility] Feb 26, 2024 01:00 PM AMBULATORY - MEDICINE [facility] Apr 15, 2024 11:00 AM AMBULATORY - REHAB MEDICIN E [facility] [place] [facility] Apr 20, 2024 02:00 PM AMBULATORY - MEDICINE [place] [facility] [place] [facility] Apr 22, 2024 10:00 AM AMBULATORY - MEDICINE [place] [facility] [place] [facility] Apr 28, 2024 01:00 PM AMBULATORY - PSYCHIATRY [facility] [place] [facility] Apr 28, 2024 01:01 PM AMBULATORY - PSYCHIATRY [facility] [place] [facility] May 11, 2024 01:30 PM AMBULATORY - REHAB MEDICIN E [facility] [place] [facility] May 26, 2024 03:00 PM AMBULATORY - PSYCHIATRY [facility] [place] [facility] May 26, 2024 03:01 PM AMBULATORY - PSYCHIATRY [facility] [place] Jun 22, 2024 01:00 PM AMBULATORY - MEDICINE [facility] Jun 22, 2024 03:00 PM AMBULATORY - NONE [facility] Active, Pending, and Scheduled Orders This section includes a listing of several types of active, pending, and scheduled orders, including clinic medications orders, diagnostic test orders, procedure orders and consult orders; where the start date of the order is 45 days before the date of the Encounter or 45 days after the date of theEncounter. The data comes from all [place] treatment facilities. Test Date/Time Test Type Test Details Facility Name Dec 09, 2023 03:47 PM Consult Order COMMUNITY CARE-NEUROLOGY [facility] Desk Assistant's [facility] Dec 12, 2023 11:03 AM Consult Order COMMUNITY CARE-SLEEP MEDICINE [facility] Desk Assistant's [facility] Advance Directives: All historical and current Section Date Range: From patient's date of to the date document was created. This section includes ALL of a patient's completed or amended [place] Advance and Rescinded Directives. The entries below indicate that a directive exists for the patient, but an actual copy is not included with this document. The data comes from all [place] facilities. Date Advance Directives Provider Source August [...] DATE: DEC 25, 2023@11:14:09 AUTHOR: LIU HERNANDEZ COSIGNER: URGENCY: STATUS: COMPLETED Patient Name: SHANICE YOUNGER Patient SSN: [id number] Date and time of Appointment No show : 12/25/23 11:00 PATIENT PHONE - PHONE NUMBER [CELLULAR] - Patient's medical record was reviewed. Follow-up actions were determined and initiated: Please check/complete as applies: [X]Telephoned Directly [ ]Re-scheduled for next available appt [X]Sent a N0-show letter ( must call for appointment) [ ]Other (Emergent/Overbook, etc.): Additional Comments: and unable to get [facility]VC to work for them, then could not hear me on the phone. They would like to come into clinic for visits. Please change to CVT appointments. Future Clinic Visits 01/01/2024 13:30 NHM/OPT/VISUAL IMAGING 01/01/2024 14:00 CWM/NO/OPTOMETRY/OSHINSKI 01/02/2024 14:00 CWM NO AUDIO EVAL B 02/26/2024 13:00 CWM/SO/PACT 1 LOADING UNIT OPERATOR CRIMPING /es/ LIU HERNANDEZ M.D. Signed: 12/25/2023 11:15 Receipt Acknowledged By: 12/25/2023 11:25 /gurwinder/ Lexus Shan ADVANCED PAPER SORTER LIU HERNANDEZ
--- OUTSIDE RECORDS SUMMARY | 2024-09-01 14:57 | XMS_ITS | Encounter Summary ---
Author Name [facility] [place] Address [address] [place] [address] Care Team Providers Care Cheesemaking Laborer Name Role Phone ERNESTO ARBOLEDA Primary Care [...] PART A August 12, 2008 PART A [id number] [phone] Dawson YOUNGER PATIENT MEDICARE (WNR) MEDICARE (M) PART B August 12, 2008 PART B [id number] Dawson YOUNGER PATIENT MEDICARE (WNR) MEDICARE (M) PART A August 12, 2008 PART A [id number] [phone] Dawson YOUNGER PATIENT MEDICARE (WNR) MEDICARE (M) PART A August 12, 2008 PART A [id number] Dawson YOUNGER PATIENT MEDICARE (WNR) MEDICARE (M) PART B August 12, 2008 PART B [id number] Dawson YOUNGER PATIENT MEDICARE (WNR) MEDICARE (M) PART B August 12, 2008 PART B [id number] [phone] Dawson YOUNGER PATIENT MEDICARE (WNR) MEDICARE (M) PART B August 12, 2008 PART B [id number] Dawson YOUNGRE PATIENT MEDICARE (WNR) MEDICARE (M) PART A August 12, 2008 PART A [id number] [phone] Dawson YOUNGER PATIENT MEDICARE (WNR) MEDICARE (M) PART A August 12, 2008 PART A [id number] [phone] Dawson YOUNGER PATIENT MEDICARE (WNR) MEDICARE (M) PART B August 12, 2008 PART B [id number] Dawson YOUNGER PATIENT MEDICARE PART D (WNR) PRESCRIPT ION PART D Apr 14, 2015 PART D [id number] Dawson YOUNGER PATIENT UNICARE PREFERRED PROVIDER ORGANIZAT ION (PPO) [facility] IN[facility] N August 12, 2008 [id number] Dawson YOUNGER PATIENT UNICARE MEDICARE SUPPLEMEN TAL WELLP OINT August 12, 2008 [id number] [id number] Dawson YOUNGER PATIENT UNICARE-G. I.C. MEDICAL EXPENSE (OPT/PROF ) [facility] IN[facility] N August 12, 2008 [id number] [id number] [phone] Dawson YOUNGER PATIENT WELLPOINT MEDICAL EXPENSE (OPT/PROF ) [facility] N August 12, 2008 [id number] Dawson YOUNGER PATIENT Selected Encounter This section includes the information on record at [place] for the Encounter. Date/Time Encounter Type Encounter Description Reason Provider Source Nov 13, 2023 10:00 AM OFF/OP CONSLTJ NEW/EST HI [facility] - IND ICD-10-CM F43.10 Post-traumatic stress disorder, unspecified LIU HERNANDEZ Javad Encounter Template Text not used by [place] Assessments - Encounter Diagnoses This section includes the primary and secondary diagnoses documented for the Encounter. Date/Time Primary/Secondary Diagnosis Diagnosis Name Provider Source Nov 13, 2023 10:50 AM PRIMARY Post-traumatic stress disorder, unspecified LIU HERNANDEZ SONYA Nov 13, 2023 10:50 AM SECONDARY Insomnia, unspecified LIU HERNANDEZ Plan of Treatment: Future Appointments (+ 6 months) and Future Tests (+/- 45 days) The Plan of Treatment section includes future care activities for the patient from all [place] [facility]. This section includes future appointments and future [...] 14, 2023 01:00 PM AMBULATORY - MEDICINE [place] [facility] [place] [facility] Nov 14, 2023 02:00 PM AMBULATORY - MEDICINE [place] [facility] [place] [facility] Dec 01, 2023 08:30 AM AMBULATORY - PSYCHIATRY [place] [facility] [place] [facility] Dec 09, 2023 03:00 PM AMBULATORY - PSYCHIATRY [place] [facility] [place] [facility] Dec 25, 2023 11:00 AM AMBULATORY - PSYCHIATRY [facility] [place] [facility] Jan 01, 2024 01:30 PM AMBULATORY - MEDICINE [place] [facility] [place] [facility] Jan 01, 2024 02:00 PM AMBULATORY - MEDICINE [place] [facility] [place] [facility] Jan 02, 2024 02:00 PM AMBULATORY - REHAB MEDICIN E [place] [facility] [place] [facility] Jan 21, 2024 02:30 PM AMBULATORY - PSYCHIATRY [facility] [place] [facility] Jan 21, 2024 02:31 PM AMBULATORY - PSYCHIATRY [facility] [place] [facility] Feb 05, 2024 11:00 AM AMBULATORY - REHAB MEDICIN E [facility] [place] [facility] Feb 05, 2024 01:30 PM AMBULATORY - MEDICINE [place] [facility] [place] [facility] Feb 26, 2024 01:00 PM [facility] Apr 15, 2024 11:00 AM AMBULATORY - REHAB MEDICIN E [facility] [place] [facility] Apr 20, 2024 02:00 PM AMBULATORY - MEDICINE [place] [facility] [place] [facility] Apr 22, 2024 10:00 AM AMBULATORY - MEDICINE [facility] [place] [facility] Apr 28, 2024 01:00 PM AMBULATORY - PSYCHIATRY [facility] [place] [facility] Apr 28, 2024 01:01 PM AMBULATORY - PSYCHIATRY [facility] [place] [facility] May 11, 2024 01:30 PM AMBULATORY - REHAB MEDICIN E [place] [facility] [place] [facility] Active, Pending, and Scheduled Orders This section includes a listing of several types of active, pending, and scheduled orders, including clinic medications orders, diagnostic test orders, procedure orders and consult orders; where the start date of the order is 45 days before the date of the Encounter or 45 days after the date of theEncounter. The data comes from all [place] treatment facilities. Test Date/Time Test Type Test Details Facility Name Dec 09, 2023 03:47 PM Consult Order COMMUNITY CARE-NEUROLOGY Cons Condemnation Engineer's Choice [facility] Dec 12, 2023 11:03 AM Consult Order COMMUNITY CARE-SLEEP MEDICINE Cons Condemnation Engineer's Choice [facility] Lab Results: +/- 30 days of the encounter This section includes the Chemistry and Hematology Lab Results on record with [place] for the patient. Radiology Reports and Pathology Reports are provided separately, in subsequent sections. Lab Results This section contains the Chemistry/Hematology Results that were resulted 30 days before or 30 daysafter the date of the Encounter. Date/Time Source Result Type Result - Unit Interpretation Reference Range Specimen Type Comment Nov 07, 2023 01:19 PM [facility] URINALYSIS URINE Specimen Type: URINE Comment: If Glucose = >500 and Ketones are positive, please alert the Physician. Ordering Provider: ERNESTO ARBOLEDA Report Released Date/Time: August 17, 2023 01:25 PM Reporting Lab: [address] [address] Performing Lab: [address] [address] UA COLOR Yellow Yellow UA APPEARANCE Turbid Clear UA GLUCOSE NEGATIVE mg/dL Negative UA KETONES NEGATIVE mg/dL Negative UA BLOOD NEGATIVE mg/dL Negative UA PROTEIN NEGATIVE mg/dL Negative UA NITRITE NEGATIVE mg/dL Negative UA BILIRUBIN NEGATIVE mg/dL Negative UA SPECIFIC GRAVITY 1.024 H 1.016-1.022 UA pH 6.0 5.0-9.0 UA UROBILINOGEN <2.0 mg/dL <2.0 UA LEUKOCYTE NEGATIVE Negative Nov 07, 2023 01:19 PM [facility] MICROALBUMIN CREATININE RATIO PANEL URINE Specimen Type: URINE No comment entered. Ordering Provider: ERNESTO ARBOLEDA Report Released Date/Time: August 17, 2023 01:25 PM Reporting Lab: [address] [address] Performing Lab: [address] [address] MICROALBUMIN/CREATININE RATIO canc mg/g 0-29.9 MICROALBUMIN,QUANTITATIVE < 0.5 mg/dL RR UNAVAIL CREATININE URINE 128.85 mg/dL Nov 07, 2023 01:19 PM [facility] LIVER FUNCTION SERUM Specimen Type: SERUM No comment entered. Ordering Provider: ERNESTO ARBOLEDA Report Released Date/Time: August 17, 2023 01:25 PM Reporting Lab: [address] [address] Performing Lab: [address] [address] PROTEIN,TOTAL 6.4 g/dL 6.0-8.3 ALBUMIN 3.3 g/dL L 3.5-5.0 ALKALINE PHOSPHATASE 88 U/L 40-150 AST 16 U/L 5-34 ALT 24 U/L BILIRUBIN, TOTAL 0.4 mg/dL 0.2-1.2 Nov 07, 2023 01:19 PM [facility] LIPID PANEL, NON FASTING SERUM Specim en Type: SERUM No comment entered. Ordering Provider: ERNESTO ARBOLEDA Report Released Date/Time: August 17, 2023 01:25 PM Reporting Lab: [facility] [address] [address] Performing Lab: [facility] [address] [address] CHOLESTEROL 134 mg/dL TRIGLYCERIDE 235 mg/dL H 0-150 LDL calculated 41 mg/dL 0-129 CHOL/HDL 2.9 HDL CHOLESTEROL 46 mg/dL 40-60 Nov 07, 2023 01:19 PM [facility] CALCIUM SERUM Sp ecimen Type: SERUM No comment entered. Ordering Provider: ERNESTO ARBOLEDA Report Released Date/Time: August 17, 2023 01:25 PM Reporting Lab: [facility] [address] [address] Performing Lab: [facility] [address] [address] CALCIUM 8.8 mg/dL 8.5-10.2 Nov 07, 2023 01:19 PM [facility] HEMOGLOBIN A1C PANEL BLOOD Specimen T ype: [...] August 17, 2023 01:25 PM Reporting Lab: [facility]ENTERUSE[address] [address] Performing Lab: [facility]USE[address] [address] HEMOGLOBIN A1C 5.9 H 4.0-5.6 Nov 07, 2023 01:19 PM [facility] TSH SERUM Sp ecimen Type: SERUM No comment entered. Ordering Provider: ERNESTO ARBOLEDA Report Released Date/Time: August 17, 2023 01:25 PM Reporting Lab: [facility] [address] [address] Performing Lab: [facility]ONN [address] [address] TSH 1.16 u[IU]/mL 0.35-5.00 Nov 07, 2023 01:19 PM [facility] MAGNESIUM SERUM Sp ecimen Type: SERUM No comment entered. Ordering Provider: ERNESTO ARBOLEDA Report Released Date/Time: August 17, 2023 01:25 PM Reporting [facility]: [facility] [address] [address] Performing Lab: [facility] [address] [address] MAGNESIUM 1.9 mg/dL 1.6-2.6 Nov 07, 2023 01:19 PM [facility] VITAMIN D (25-OH) SERUM Specimen Type: SERUM No comment entered. Ordering Provider: ERNESTO ARBOLEDA Report Released Date/Time: August 17, 2023 01:25 PM Reporting Lab: [facility] [address] [address] Performing Lab: [facility] [address] [address] VITAMIN D (25-OH) 28 ng/mL 20-50 Nov 07, 2023 01:19 PM [facility] VITAMIN B12 SERUM Specimen Type: SERUM No comment entered. Ordering Provider: ERNESTO ARBOLEDA Report Released Date/Time: August 17, 2023 01:25 PM Reporting Lab: [facility] [address] [address] Performing Lab: [facility]ON[facility] [address] [address] VITAMIN B12 424 pg/mL 200-900 Nov 07, 2023 01:19 PM [facility] PT & INR (PROTIME) PLASMA Specimen Typ e: PLASMA No comment entered. Ordering Provider: ERNESTO ARBOLEDA Report Released Date/Time: August 17, 2023 01:25 PM Reporting Lab: [facility]TRN [address] [address] Performing Lab: [facility] [address] [address] INR 1.1 PROTIME 11.9 s 10.0-13.1 Nov 07, 2023 01:19 PM [facility] BASIC METABOLIC PANEL (non-fasting) SERUM Specimen Type: SERUM No comment entered. Ordering Provider: ERNESTO ARBOLEDA Report Released Date/Time: August 17, 2023 01:25 PM Reporting Lab: [address] [address] Performing Lab: [address] [address] UREA NITROGEN 19 mg/dL 7-25 GLUCOSE 99 mg/dL 65-100 SODIUM 139 mmol/L 135-145 POTASSIUM 4.3 mmol/L 3.5-5.0 CHLORIDE 105 mmol/L 100-110 CO2 29 meq/L 20-30 CREATININE, Serum 1.05 mg/dL 0.50-1.40 eGFR(CKD-EPI 2020) 72 mL/min >60 Nov 07, 2023 01:19 PM [facility] CBC AND DIFF (AUTO) BLOOD Specimen Ty pe: BLOOD No comment entered. Ordering Provider: ERNESTO ARBOLEDA Report Released Date/Time: August 17, 2023 01:25 PM Reporting Lab: [address] [address] Performing Lab: [address] [address] WBC 6.90 10*3/uL 4.50-11.00 RBC 4.40 10*6/uL [...] 10*3/uL 0.00-0.00 Nov 07, 2023 01:19 PM [facility] MICROSCOPIC AUTOMATED, URINE URINE Sp ecimen Type: URINE Comment: If Glucose = >500 and Ketones are positive, please alert the Physician. Ordering Provider: ERNESTO ARBOLEDA Report Released Date/Time: August 17, 2023 01:25 PM Reporting Lab: [facility] [address] [address] Performing Lab: [facility] [address] [address] UA WBC 0-5 /[HPF] 0-5 UA RBC [...] DATE: NOV 13, 2023@10:12:24 AUTHOR: LIU HERNANDEZ COSIGNER: URGENCY: STATUS: COMPLETED [facility] Video Connect (VVC) Standard Documentation VVC Clinician Resources Only: E911 (Emergency Call Relay Center): [phone] National Veterans Crisis Line - 988 then press #1. [place] Suicide Coordinator [phone], Ext. [phone]; Back-up Ext. [phone] [place] Police, Doug LASSITER [phone] Introduction: Visit is being conducted by [place] Video Connect. identified with 2 identifiers: [X] Full Name [X] Date of [ ] VA ID Card Emergency Plan: [place] confirmed and/or provided the following information in case of emergency or technology failure. PATIENT PHONE - PHONE NUMBER [CELLULAR] - Is patient phone number correct, if not, enter below: 's phone number: SHANICE YOUNGER [address] [place], [place], [address] [place]'s present location and address for appointment: same as above [place]'s emergency contact name and phone number: , [place] [phone] [place] reported that location is private and safe: Yes Informed Consent: informed of the risks and benefits of Telehealth video care. [place] has the right to refuse video services. If refuses video visit, a [id number] visit will be scheduled. verbalized consent for [...] court of law and presented to a cellars supervisor) SHANICE YOUNGER is a 78 year old MALE who presents for psychiatric evaluation on this date HISTORY OF PRESENT ILLNESS: CHART REVIEW: seen for initial MH consult 09/23/23, noting: is an 78 year old , , 100% [place] looking to transfer his PTSD treatment from [place] to here after relocating. He is only [...] about balance and falling. He shared with scientific writer an acute injury where he injured his back about two weeks ago and did not go to the ER to be evaluated. Linux Security Administrator will place neuropsychological consult to assess his cognition and advised him to stop to be triaged by the nurse on his way out to assess his back injury. Still gets nightmares-- maybe once a month. Tries to avoid things that will remind him of it. DSM5 DIAGNOSES: PTSD, chronic SC: 70% for PTSD. Per Social Work intake, [place] reported: We were living in [place] for 18yrs, in [place], the weather just became too difficult for me bc of my breathing. I was in the hospital for a week last year bc of my COPD and asthma. When I told my that I thought it was time to move back, she didn't waste a minute to call her friends and tell them, she is very happy. They bought a home in [place], the same city they used to live in. They have friends and family here, some of their children and grandchildren are in [facility]. SC: POST-TRAUMATIC STRESS DISORDER (70%-SC) PRESENTATION AT TIME OF INITIAL VISIT WITH MYSELF 11/13/23: reports he and his moved from [place] in July 2023, noting he was originally from [facility] but moved to [place] after he retired and has returned here [...] CCB for ventricular rate control. + Agent [place] exposure VS 08/07/2023 15:14 98.3 54 18 [...] head and states he would go to rock to have holes drilled in his head [...] decline 10. CAD - Coronary Artery Disease ([facility] [id number]) 11. Exposure to potentially hazardous substance 12. Glaucoma 13. Insomnia 14. Bilateral hearing loss 15. GERD - Gastro-Esophageal Reflux Disease ([facility] [id number]) VS/ RECENT LABS: SVS - Vital Signs [...] no impairment evident INITIAL ASSESSMENT/ DIAGNOSIS AND RECOMMENDATIONS:[place] presents with chronic PTSD with partial improvement [...] HERNANDEZ M.D. Signed: 11/13/2023 10:51 LIU HERNANDEZ [facility]
--- OUTSIDE RECORDS SUMMARY | 2024-09-01 14:57 | XMS_ITS | Encounter Summary ---
Author Name [facility] [facility] [place] [facility] [place] [facility] [place] Address [address] [place] [address] Care Team Providers Care Printed Forms Proofreader Name Role Phone ERNESTO ARBOLEDA Primary Care [...] PART A August 12, 2008 PART A [id number] [phone] Dawson YOUNGER PATIENT MEDICARE (WNR) MEDICARE (M) PART B August 12, 2008 PART B [id number] [phone] Dawson YOUNGER PATIENT MEDICARE (WNR) MEDICARE (M) PART A August 12, 2008 PART A [id number] [facility] Dawson YOUNGER PATIENT MEDICARE (WNR) MEDICARE (M) PART B August 12, 2008 PART B [id number] [facility] [phone] Dawson YOUNGER PATIENT MEDICARE (WNR) MEDICARE (M) PART A August 12, 2008 PART A [id number] [facility] [phone] Dawson YOUNGER PATIENT MEDICARE (WNR) MEDICARE (M) PART A August 12, 2008 PART A [id number] [facility] Dawson YOUNGER PATIENT MEDICARE (WNR) MEDICARE (M) PART B August 12, 2008 PART B [id number] [phone] Dawson YOUNGER PATIENT MEDICARE (WNR) MEDICARE (M) PART B August 12, 2008 PART B [id number] Dawson YOUNGER PATIENT MEDICARE (WNR) MEDICARE (M) PART A August 12, 2008 PART A [id number] Dawson YOUNGER PATIENT MEDICARE (WNR) MEDICARE (M) PART B August 12, 2008 PART B [id number] [facility] Dawson YOUNGER PATIENT MEDICARE PART D (WNR) PRESCRIPT ION PART D Apr 14, 2015 PART D [id number] [facility] Dawson YOUNGER PATIENT UNICARE PREFERRED PROVIDER ORGANIZAT ION (PPO) [facility] N August 12, 2008 [id number] [phone] Dawson YOUNGER PATIENT UNICARE MEDICARE SUPPLE[employer] August 12, 2008 [id number] [phone] Dawson YOUNGER PATIENT UNICARE-G. I.C. MEDICAL EXPENSE (OPT/PROF ) [facility] N August 12, 2008 [id number] [phone] Dawson YOUNGER PATIENT [employer] MED[employer] EXPENSE (OPT/PROF ) [facility] N August 12, 2008 [id number] [phone] Dawson YOUNGER PATIENT Selected Encounter This section includes the information on record at [place] for the Encounter. Date/Time Encounter Type Encounter Description Reason Provider Source Jun 24, 2024 09:09 AM NQHP OL DIG ASSMT&MGMT 5-10 CLINICAL PHARMACY ICD-10-CM Z04.89 Encounter for examination and observation for oth reasons SALVADOR RAWLS IHJavad Encounter Template Text not used by [place] Assessments - Encounter Diagnoses This section includes the primary and secondary diagnoses documented for the Encounter. Date/Time Primary/Secondary Diagnosis Diagnosis Name Provider Source Jun 24, 2024 12:45 PM PRIMARY Encounter for examination and observation for oth reasons SALVADOR RAWLS [facility] Plan of Treatment: Future Appointments (+ 6 months) and Future Tests (+/- 45 days) The Plan of Treatment section includes future care activities for the patient from [facility] [place] [facility] This section includes future appointments and future orders which are active, pending or scheduled. Future Appointments This section includes appointments that were scheduled to occur 6 months from the date of the Encounter, up to a maximum of 20 appointments. The data comes from all [facility]. Appointment Date/Time Appointment Type Appointme nt Facility Name Jul 27, 2024 10:30 AM [facility] Sep 14, 2024 02:00 PM [facility] Sep 14, 2024 02:30 PM [facility] Oct 19, 2024 01:00 PM AMBULATORY MEDICINE [facility] Active, Pending, and Scheduled Orders This section includes a listing of several types of active, pending, and scheduled orders, including clinic medications orders, diagnostic test orders, procedure orders and consult orders; where the start date of the order is 45 days before the date of the Encounter or 45 days after the date of theEncounter. The data comes from all [facility]. Test Date/Time Test Type Test Details Facility Name Jul 27, 2024 09:57 AM Consult Order BHIP PSYCH IATRIC MEDICATION/SOPC OUTPT Cons [employer] [facility] Lab Results: +/- 30 days of the encounter This section includes the Chemistry and Hematology Lab Results on record with [place] for the patient. Radiology Reports and Pathology Reports are provided separately, in subsequent sections. Lab Results This section contains the Chemistry/Hematology Results that were resulted 30 days before or 30 daysafter the date of the Encounter. Date/Time Source Result Type Result - Unit Interpretation Reference Range Specimen Type Comment Jun 22, 2024 01:41 PM [facility] TSH SERUM Specimen Type: SERUM No comment entered. Ordering Provider: ERNESTO ARBOLEDA Report Released Date/Time: Jun 16, 2024 03:51 PM Reporting Lab: [address] [address] Performing Lab: [address] [address] TSH 2.04 u[IU]/mL 0.35-5.00 Jun 22, 2024 01:41 PM [facility] BASIC METABOLIC PANEL (non-fasting) SERUM Specimen Type: SERUM No comment entered. Ordering Provider: ERNESTO ARBOLEDA Report Released Date/Time: Jun 16, 2024 03:51 PM Reporting Lab: [address] [address] Performing Lab: [address] [address] UREA NITROGEN 16 mg/dL 7-25 GLUCOSE 122 mg/dL H 65-100 SODIUM 139 mmol/L 135-145 POTASSIUM 4.3 mmol/L 3.5-5.0 CHLORIDE 105 mmol/L 100-110 CO2 24 meq/L 20-30 CALCIUM 9.1 mg/dL 8.5-10.2 CREATININE, Serum 1.30 mg/dL 0.50-1.40 eGFR(CKD-EPI 2020) 55 mL/min L >60 Jun 22, 2024 01:41 PM [facility] LIPID PANEL, NON FASTING SERUM Specim en Type: SERUM No comment entered. Ordering Provider: ERNESTO ARBOLEDA Report Released Date/Time: Jun 16, 2024 03:51 PM Reporting Lab: [address] [address] Performing Lab: [address] [address] CHOLESTEROL 213 mg/dL H TRIGLYCERIDE 164 mg/dL H 0-150 LDL calculated 123 mg/dL 0-129 CHOL/HDL 3.7 HDL CHOLESTEROL 57 mg/dL 40-60 Jun 22, 2024 01:41 PM [facility] LIVER FUNCTION SERUM Specimen Type: SERUM No comment entered. Ordering Provider: ERNESTO ARBOLEDA Report Released Date/Time: Jun 16, 2024 03:51 PM Reporting Lab: [address] [address] Performing Lab: [address] [address] PROTEIN,TOTAL 7.7 g/dL 6.0-8.3 ALBUMIN 3.8 g/dL 3.5-5.0 ALKALINE PHOSPHATASE 72 U/L 40-150 AST 11 U/L 5-34 ALT 12 U/L BILIRUBIN, TOTAL 0.4 mg/dL 0.2-1.2 Jun 22, 2024 01:41 PM [facility] HEMOGLOBIN A1C PANEL BLOOD Specimen T ype: BLOOD Comment: Values obtained from A1C measurements can vary. For atypical A1C assays, a reported value of 7.0 could actually be between 6.72 and 7.28 if measured by a reference method. A reported value of 9.0 could actually be between 8.73 and 9.27. Ref: http://www.ngsp.org/CAPdata.asp Ordering Provider: ERNESTO ARBOLEDA Report Released Date/Time: Jun 16, 2024 03:51 PM Reporting Lab: [address] [address] Performing Lab: [address] [address] HEMOGLOBIN A1C 6.0 H 4.0-5.6 Jun 22, 2024 01:41 PM [facility] CBC AND DIFF (AUTO) BLOOD Specimen Ty pe: BLOOD No comment entered. Ordering Provider: ERNESTO ARBOLEDA Report Released Date/Time: Jun 16, 2024 03:51 PM Reporting Lab: [address] [address] Performing Lab: [address] [address] WBC 6.46 10*3/uL 4.50-11.00 RBC 5.21 10*6/uL 4.23-5.66 HGB 16.1 g/dL 12.8-17 HCT 47.6 39.2-50.4 MCV 91.4 fL 82-99 MCHC 33.8 g/dL 30.8-35.1 PLT 289 10*3/uL 140-360 RDW-CV 12.5 12.0-16.0 MONO, ABS 0.55 10*3/uL 0.30-1.10 MCH 30.9 pg 26.2-32.6 NEUT % 58.8 43.7-75.8 LYMPH % 24.6 14.0-42.3 MONO % 8.5 5.1-13.7 EOS % 7.0 H 0.4-6.8 BASO % 0.8 0.1-2.0 NEUT, ABS 3.80 10*3/uL 2.20-7.60 LYMPH, ABS 1.59 10*3/uL 1.00-3.20 EOS, ABS 0.45 10*3/uL H 0.03-0.44 BASO, ABS 0.05 10*3/uL 0.01-0.13 IMMATURE GRAN % 0.3 0.0-0.7 IMMATURE GRAN, ABS 0.02 10*3/uL 0.00-0.0 6 NRBC % 0.0 0.0-0.0 NRBC, ABS 0.00 10*3/uL 0.00-0.00 Social History: Smoking Status (Most current) and Tobacco Use (All prior to encounter date) This section includes the most current, and the historical, smoking and tobacco- related health factors from the [place] facility where the Encounter took place. Current Smoking Status This section includes the most current smoking, or tobacco-related health factor, from the [place] facility where the Encounter took place. Date/Time Current Smoking Status Comment Facil ity Aug 06, 2023 01:17 PM VA-TOBACCO NEVER USED [place] [facility] [place] [facility] Advance Directives: All historical and current [...] Encounter. Date/Time Encounter Note(s) Provider Source Jun 24, 2024 09:09 AM PHARMACY MEDICATION MGT NOTE: LOCAL TITLE: PHARMACY ANTICOAGULATION NOTE STANDARD TITLE: PHARMACY MEDICATION MGT NOTE DATE OF NOTE: JUN 24, 2024@09:09 ENTRY DATE: JUN 24, 2024@09:10 AUTHOR: LILIAM TRUJILLO COSIGNER: URGENCY: STATUS: COMPLETED [...] Patient education via phone/letter [ ] Schedule phone/[id number] follow up [ ] Lab ordered [ ] Discontinue interacting medication [ ] Discontinue DOAC [ ] Change to alternative DOAC [ ] Change DOAC dose [ ] Notify PCP [ ] Consult cardiology/hematology [ ] Other: Time spent: 5 min /charlotte TRUJILLO CPHT Clinical Business Services Officer Signed: 06/24/2024 09:11 Receipt Acknowledged By: 06/24/2024 12:45 /charlotte Rawls PharmD, KAUSHIK Clinical Fire Pilot 06/24/2024 ADDENDUM STATUS: COMPLETED Reviewed Nohemi note; agree w/ A/P as documented. /charlotte Rawls PharmD, KAUSHIK Clinical Fire Pilot Signed: 06/24/2024 12:45 LILIAM TRUJILLO CNTRL [facility]
--- OUTSIDE RECORDS SUMMARY | 2024-09-01 14:57 | XMS_ITS ---
Author Name [facility] [place] Organization [facility] [place] Address [address] [place] [address] Care Team Providers Care Director Market Intelligence Name Role Phone ERNESTO ARBOLEDA Primary Care [...] PART A August 12, 2008 PART A [id number] [phone] Dawson YOUNGER PATIENT MEDICARE (WNR) MEDICARE (M) PART B August 12, 2008 PART B [id number] Dawson YOUNGER PATIENT MEDICARE (WNR) MEDICARE (M) PART A August 12, 2008 PART A [id number] Dawson YOUNGER PATIENT MEDICARE (WNR) MEDICARE (M) PART B August 12, 2008 PART B [id number] [facility] Dawson YOUNGER PATIENT MEDICARE (WNR) MEDICARE (M) PART A August 12, 2008 PART A [id number] Dawson YOUNGER PATIENT MEDICARE (WNR) MEDICARE (M) PART B August 12, 2008 PART B [id number] Dawson YOUNGER PATIENT MEDICARE (WNR) MEDICARE (M) PART B August 12, 2008 PART B [id number] [phone] Dawson YOUNGER PATIENT MEDICARE (WNR) MEDICARE (M) PART A August 12, 2008 PART A [id number] Dawson YOUNGER PATIENT MEDICARE (WNR) MEDICARE (M) PART A August 12, 2008 PART A [id number] Dawson YOUNGER PATIENT MEDICARE (WNR) MEDICARE (M) PART B August 12, 2008 PART B [id number] [phone] Dawson YOUNGER PATIENT MEDICARE PART D (WNR) PRESCRIPT ION PART D Apr 14, 2015 PART D [id number] Dawson YOUNGER PATIENT UNICARE PREFERRED PROVIDER ORGANIZAT ION (PPO) [facility] August 12, 2008 [id number] Dawson YOUNGER PATIENT [facility] SUPPLEMEN FARHAD WELLP OINT August 12, 2008 [id number] [phone] Dawson YOUNGER PATIENT UNICARE-G. [employer]. MEDICAL EXPENSE (OPT/PROF ) [facility] August 12, 2008 [id number] [phone] Dawson YOUNGER PATIENT [employer] MEDICAL EXPENSE (OPT/PROF ) [facility] August 12, 2008 [id number] Dawson YOUNGER PATIENT Selected Encounter This section includes the information on record at [place] for the Encounter. Date/Time Encounter Type Encounter Description Reason Provider Source Nov 14, 2023 01:00 PM COMPRE OPH EXAM NEW PT 1/> OPTOMETRY ICD-10-CM 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, right eye, mild stage OSHINSKIE,CELENA ROYER Posey Javad Encounter Template Text not used by [facility] Assessments - Encounter Diagnoses This section includes the primary and secondary diagnoses documented for the Encounter. Date/Time Primary/Secondary Diagnosis Diagnosis Name Provider Source Nov 17, 2023 08:05 AM PRIMARY Capslr glaucoma w/pseudxf lens, right eye, mild stage OSHINSKIE,CELENA Posey [place] [facility] [place] [facility] Nov 17, 2023 08:05 AM SECONDARY Capslr glaucoma w/pseudxf lens, left eye, mild stage OSHINSKIE,CELENA Posey [place] [facility] [place] [facility] Nov 17, 2023 08:05 AM SECONDARY Dry eye syndrome of bilateral lacrimal glands OSHINSKIE,CELENA Posey [place] [facility] [place] [facility] Nov 17, 2023 08:05 AM SECONDARY Hypermetropia, bilateral OSHINSKIE,CELENA Posey [facility] [place] [facility] Nov 17, 2023 08:05 AM SECONDARY Macular cyst, hole, or pseudohole, left eye OSHINSKIE,CELENA Posey [place] [facility] [place] [facility] Nov 17, 2023 08:05 AM SECONDARY Presbyopia OSHINSKIE,CELENA Posey [place] [facility] [place] [facility] Nov 17, 2023 08:05 AM SECONDARY Regular astigmatism, bilateral OSHINSKIE,CELENA Posey [place] [facility] [place] [facility] Plan of Treatment: Future Appointments [...] AMBULATORY - PSYCHIATRY [facility] [place] [facility] Dec 09, 2023 03:00 PM AMBULATORY - PSYCHIATRY [facility] [place] [facility] Dec 25, 2023 11:00 AM AMBULATORY - PSYCHIATRY [facility] [place] [facility] Jan 01, 2024 01:30 PM AMBULATORY - MEDICINE [facility] [place] [facility] Jan 01, 2024 02:00 PM AMBULATORY - MEDICINE [facility] [place] [facility] Jan 02, 2024 02:00 PM AMBULATORY - REHAB MEDICIN E [facility] [place] [facility] Jan 21, 2024 02:30 PM AMBULATORY - PSYCHIATRY [facility] [place] [facility] Jan 21, 2024 02:31 PM AMBULATORY - PSYCHIATRY [facility] [place] [facility] Feb 05, 2024 11:00 AM AMBULATORY - REHAB MEDICIN E [facility] [place] [facility] Feb 05, 2024 01:30 PM AMBULATORY - MEDICINE [facility] [place] [facility] Feb 26, 2024 01:00 PM [facility] Apr 15, 2024 11:00 AM AMBULATORY - REHAB MEDICIN E [facility] [place] [facility] Apr 20, 2024 02:00 PM AMBULATORY - MEDICINE [facility] [place] [facility] Apr 22, 2024 10:00 AM AMBULATORY - MEDICINE [facility] [place] [facility] Apr 28, 2024 01:00 PM AMBULATORY - PSYCHIATRY [facility] [place] [facility] Apr 28, 2024 01:01 PM AMBULATORY - PSYCHIATRY [facility] [place] [facility] May 11, 2024 01:30 PM AMBULATORY - REHAB MEDICIN E [facility] [place] [facility] Active, Pending, and Scheduled Orders This section includes a listing of several types of active, pending, and scheduled orders, including clinic medications orders, diagnostic test orders, procedure orders and consult orders; where the start date of the order is 45 days before the date of the Encounter or 45 days after the date of theEncounter. The data comes from all [place] treatment facilities. Test Date/Time Test Type Test Details Facility Name Dec 09, 2023 03:47 PM Consult Order [facility]-NEUROLOGY Cons Advertising Solicitor's Choice [facility] Dec 12, 2023 11:03 AM Consult Order [facility]-SLEEP MEDICINE Cons [employer] Choice [facility] Lab Results: +/- 30 days of the encounter This section includes the Chemistry and Hematology Lab Results on record with [place] for the patient. Radiology Reports and Pathology Reports are provided separately, in subsequent sections. Lab Results This section contains the Chemistry/Hematology Results that were resulted 30 days before or 30 daysafter the date of the Encounter. Date/Time Source Result Type Result - Unit Interpretation Reference Range Specimen Type Comment Nov 07, 2023 01:19 PM [facility] URINALYSIS URINE Specimen Type: URINE Comment: If Glucose = >500 and Ketones are positive, please alert the Physician. Ordering Provider: ERNESTO ARBOLEDA Report Released Date/Time: August 17, 2023 01:25 PM Reporting Lab: [address] [address] Performing Lab: [address] [address] UA COLOR Yellow Yellow UA APPEARANCE Turbid Clear UA GLUCOSE NEGATIVE mg/dL Negative UA KETONES NEGATIVE mg/dL Negative UA BLOOD NEGATIVE mg/dL Negative UA PROTEIN NEGATIVE mg/dL Negative UA NITRITE NEGATIVE mg/dL Negative UA BILIRUBIN NEGATIVE mg/dL Negative UA SPECIFIC GRAVITY 1.024 H 1.016-1.022 UA pH 6.0 5.0-9.0 UA UROBILINOGEN <2.0 mg/dL <2.0 UA LEUKOCYTE NEGATIVE Negative Nov 07, 2023 01:19 PM [facility] MICROALBUMIN CREATININE RATIO PANEL URINE Specimen Type: URINE No comment entered. Ordering Provider: ERNESTO ARBOLEDA Report Released Date/Time: August 17, 2023 01:25 PM Reporting Lab: [address] [address] Performing Lab: [address] [address] MICROALBUMIN/CREATININE RATIO canc mg/g 0-29.9 MICROALBUMIN,QUANTITATIVE < 0.5 mg/dL RR UNAVAIL CREATININE URINE 128.85 mg/dL Nov 07, 2023 01:19 PM [facility] LIVER FUNCTION SERUM Specimen Type: SERUM No comment entered. Ordering Provider: ERNESTO ARBOLEDA Report Released Date/Time: August 17, 2023 01:25 PM Reporting Lab: [address] [address] Performing Lab: [address] [address] PROTEIN,TOTAL 6.4 g/dL 6.0-8.3 ALBUMIN 3.3 g/dL L 3.5-5.0 ALKALINE PHOSPHATASE 88 U/L 40-150 AST 16 U/L 5-34 ALT 24 U/L BILIRUBIN, TOTAL 0.4 mg/dL 0.2-1.2 Nov 07, 2023 01:19 PM [facility] LIPID PANEL, NON FASTING SERUM Specim en Type: SERUM No comment entered. Ordering Provider: ERNESTO ARBOLEDA Report Released Date/Time: August 17, 2023 01:25 PM Reporting Lab: [address] [address] Performing Lab: [address] [address] CHOLESTEROL 134 mg/dL TRIGLYCERIDE 235 mg/dL H 0-150 LDL calculated 41 mg/dL 0-129 CHOL/HDL 2.9 HDL CHOLESTEROL 46 mg/dL 40-60 Nov 07, 2023 01:19 PM [facility] CALCIUM SERUM Sp ecimen Type: SERUM No comment entered. Ordering Provider: ERNESTO ARBOLEDA Report Released Date/Time: August 17, 2023 01:25 PM Reporting Lab: [address] [address] Performing Lab: [address] [address] CALCIUM 8.8 mg/dL 8.5-10.2 Nov 07, 2023 01:19 PM [facility] HEMOGLOBIN A1C PANEL BLOOD Specimen T ype: [...] August 17, 2023 01:25 PM Reporting [facility]: [facility] [address] [address] Performing Lab: [facility] [address] HEMOGLOBIN A1C 5.9 H 4.0-5.6 Nov 07, 2023 01:19 PM [facility] TSH SERUM Sp ecimen Type: SERUM No comment entered. Ordering Provider: ERNESTO ARBOLEDA Report Released Date/Time: August 17, 2023 01:25 PM Reporting Lab: [facility] [address] [address] Performing Lab: [facility] [address] [address] TSH 1.16 u[IU]/mL 0.35-5.00 Nov 07, 2023 01:19 PM [facility] MAGNESIUM SERUM Sp ecimen Type: SERUM No comment entered. Ordering Provider: ERNESTO ARBOLEDA Report Released Date/Time: August 17, 2023 01:25 PM Reporting [facility]: [facility] [address] [address] Performing Lab: [facility] [address] [address] MAGNESIUM 1.9 mg/dL 1.6-2.6 Nov 07, 2023 01:19 PM [facility] VITAMIN D (25-OH) SERUM Specimen Type: SERUM No comment entered. Ordering Provider: ERNESTO ARBOLEDA Report Released Date/Time: August 17, 2023 01:25 PM Reporting Lab: [facility] [address] [address] Performing Lab: [facility] [address] [address] VITAMIN D (25-OH) 28 ng/mL 20-50 Nov 07, 2023 01:19 PM [facility] VITAMIN B12 SERUM Specimen Type: SERUM No comment entered. Ordering Provider: ERNESTO ARBOLEDA Report Released Date/Time: August 17, 2023 01:25 PM Reporting Lab: [address] [address] Performing Lab: [address] [address] VITAMIN B12 424 pg/mL 200-900 Nov 07, 2023 01:19 PM [facility] PT & INR (PROTIME) PLASMA Specimen Typ e: PLASMA No comment entered. Ordering Provider: ERNESTO ARBOLEDA Report Released Date/Time: August 17, 2023 01:25 PM Reporting Lab: [address] [address] Performing Lab: [address] [address] INR 1.1 PROTIME 11.9 s 10.0-13.1 Nov 07, 2023 01:19 PM [facility] BASIC METABOLIC PANEL (non-fasting) SERUM Specimen Type: SERUM No comment entered. Ordering Provider: ERNESTO ARBOLEDA Report Released Date/Time: August 17, 2023 01:25 PM Reporting Lab: [address] [address] Performing Lab: [address] [address] UREA NITROGEN 19 mg/dL 7-25 GLUCOSE 99 mg/dL 65-100 SODIUM 139 mmol/L 135-145 POTASSIUM 4.3 mmol/L 3.5-5.0 CHLORIDE 105 mmol/L 100-110 CO2 29 meq/L 20-30 CREATININE, Serum 1.05 mg/dL 0.50-1.40 eGFR(CKD-EPI 2020) 72 mL/min >60 Nov 07, 2023 01:19 PM [facility] CBC AND DIFF (AUTO) BLOOD Specimen Ty pe: BLOOD No comment entered. Ordering Provider: ERNESTO ARBOLEDA Report Released Date/Time: August 17, 2023 01:25 PM Reporting Lab: [address] [address] Performing Lab: [address] [address] WBC 6.90 10*3/uL 4.50-11.00 RBC 4.40 10*6/uL [...] 10*3/uL 0.00-0.00 Nov 07, 2023 01:19 PM [facility] MICROSCOPIC AUTOMATED, URINE URINE Sp ecimen Type: URINE Comment: If Glucose = >500 and Ketones are positive, please alert the Physician. Ordering Provider: ERNESTO ARBOLEDA Report Released Date/Time: August 17, 2023 01:25 PM Reporting Lab: [facility] [address] [facility] [address] Performing Lab: [address] [address] UA WBC 0-5 /[HPF] 0-5 UA RBC 0-2 /[HPF] 0-3 UA AMORPHOUS CRYSTALS FEW /[HPF] Not Est ablished Social History: Smoking Status (Most current) and Tobacco Use (All prior to encounter date) This section includes the most current, and the historical, smoking and tobacco- related health factors from the [place] facility where the Encounter took place. Current Smoking Status This section includes the most current smoking, or tobacco-related health factor, from the [place] facility where the Encounter took place. Date/Time Current Smoking Status Brendan esquivel Aug 06, 2023 01:17 PM VA-TOBACCO NEVER USED [place] [facility] [place] [facility] Advance Directives: All historical and current Section Date Range: From patient's date of to the date document was created. This section includes ALL of a patient's completed or amended [place] Advance and Rescinded Directives. The entries below [...] decline 10. CAD - Coronary Artery Disease ([facility] [id number]) 11. Exposure to potentially hazardous substance 12. Glaucoma 13. Insomnia 14. Bilateral hearing loss 15. GERD - Gastro-Esophageal Reflux Disease ([facility] [id number]) Active Outpatient Medications (including Supplies): Active Outpatient [...] old MALE is seen today for TAYLOR RANDOLPH: Pt. states 1+ years ago in [facility]. Wasn't sure where he was being seen or by who. Last V note was Dr. Ryder 02/2023 Chief Complaint: Pt. having care transferred here after moving from [place]. Feels that reading may be slightly hazy [...] BCVA: Lensometry of current pair of bifocals OD:+0.25-0.68v313 OS:+0.50-1.22l650 Add:+2.50 [facility] ( )sc ( x )cc - phoropter OD: 20/20-1 OS: 20/20-2 Pupils: PERRL (-)APD EOMs: SAFE OU, (-)Pain/Diplopia CVF (facial, peripheral): FTFC OU Subjective Refraction: OD: +0.25-0.94q029 20/20-1 OS: +0.25-1.74w227 20/20 Add: +2.50 Pt. near working distance [...] (local) and dispensed from another VA or [facility] facility (remote) as well as inpatient orders [...] (Tool #5) FACILITY ALLERGY/ADR -------- [facility] [place] [facility] Med. Reconciliation (Tool #1) INCLUDED [...] the patient into personal health records (i.e. [employer]) are NOT included in this list. Non-VA medications documented outside this [place], remote inpatient orders (regardless of status) and remote clinic medications are NOT included in this list. The patient and provider must always discuss medications the patient is taking, regardless of where the medication was dispensed or obtained. OUTPT ALBUTEROL 90MCG (CFC-F) 200D ORAL INHL (Status = Active) INHALE 2 PUFFS BY MOUTH FOUR TIMES DAILY NEEDED FOR BRONCHOSPASM Rx# [id number] Last Released: 11/12/23 Qty/Days Supply: Rx Expiration Date: 08/07/24 Refills Remainin Indication: FOR BRONCHOSPASM Remote ATORVASTATIN CA 80MG TAB TAKE ONE-HALF TABLET BY MOUTH EVERY DAY FOR CHOLESTEROL Last Filled: 11/10/23 (Active at [facility]) Rx Expiration Date: 06/30/24 Days Supply: 90 OUTPT ATORVASTATIN CALCIUM 80MG TAB (Status = Active) TAKE ONE TABLET BY MOUTH ONCE DAILY FOR HIGH CHOLESTEROL Rx# [id number] Last Released: 08/13/23 Qty/Days Supply: Rx Expiration Date: 08/08/24 Refills Remainin Indication: FOR HIGH CHOLESTEROL OUTPT BRIMONIDINE TARTRATE 0.2% OPH SOLN (Status = Pending) INSTILL ONE DROP INTO THE RIGHT EYE EVERY MORNING FOR GLAUCOMA Login Date: 11/14/23 Qty/Days Supply: Refills Ordered: 5 Remote BRIMONIDINE TARTRATE 0.2% SOLN,OPH INSTILL 1 DROP INTO RIGHT EYE EVERY MORNING FOR GLAUCOMA Last Filled: 06/16/23 (Active at [facility]) Rx Expiration Date: 03/28/24 Days Supply: [...] MUST BE USED WITHIN 4 MONTHS) Rx# [id number] Last Released: 11/12/23 Qty/Days Supply: 180/ Rx Expiration Date: 08/13/24 Refills Remainin Indication: TO PREVENT BLOOD CLOTS OUTPT DILTIAZEM (EQV-CARDIZEM) 240MG 24HR CAP (Status = Active) TAKE ONE CAPSULE BY MOUTH ONCE DAILY FOR ATRIAL FIBRILLATION Rx# [id number] Last Released: 11/05/23 Qty/Days Supply: Rx Expiration Date: 08/07/24 Refills Remainin Indication: FOR ATRIAL FIBRILLATION OUTPT DOXYCYCLINE HYCLATE 100MG TAB (Status = Active) TAKE ONE TABLET BY MOUTH TWICE DAILY UPPER RESPIRATORY INFECTION Rx# [id number] Last Released: 10/30/23 Qty/Days Supply: 25/10 Rx Expiration Date: 11/29/23 Refills Remainin Indication: UPPER RESPIRATORY INFECTION OUTPT EZETIMIBE 10MG TAB (Status = Active) TAKE ONE TABLET BY MOUTH ONCE DAILY TO LOWER CHOLESTEROL Rx# [id number] Last Released: 11/12/23 Qty/Days Supply: Rx Expiration Date: 08/07/24 Refills Remainin Indication: FOR HIGH CHOLESTEROL OUTPT FUROSEMIDE 20MG TAB (Status = Active) TAKE ONE TABLET BY MOUTH ONCE DAILY NEEDED FOR VISIBLE WATER RETENTION TO REMOVE FLUID/CONTROL BLOOD PRESSURE Rx# [id number] Last Released: 11/12/23 Qty/Days Supply: Rx Expiration Date: 08/08/24 Refills Remainin Indication: FOR VISIBLE WATER RETENTION Remote KETOCONAZOLE 2% SHAMPOO USE SMALL AMOUNT ON SCALP FRI,FRI AND FRIDAY SEBORRHEIC DERMATITIS LATHER, APPLY TO SCALP, LEAVE ON FOR 5 MINUTES, THEN WASH OFF. DO THIS THREE TIMES PER WEEK. Last Filled: 05/25/23 (Active at [facility]) Rx Expiration Date: 03/31/24 Days Supply: 30 OUTPT LATANOPROST 0.005% OPH SOLN (Status = Pending) INSTILL ONE DROP INTO EACH EYE AT BEDTIME Login Date: 11/14/23 Qty/Days Supply: 2.09/10 Refills Ordered: 11 OUTPT METOPROLOL SUCCINATE 50MG SA TAB (Status = Active) TAKE ONE TABLET BY MOUTH ONCE DAILY FOR BLOOD PRESSURE/HEART Rx# [id number] Last Released: 11/12/23 Qty/Days Supply: Rx Expiration Date: 08/08/24 Refills Remainin Indication: FOR HIGH BLOOD PRESSURE Remote METOPROLOL TARTRATE 50MG TAB TAKE ONE-HALF TABLET BY MOUTH TWICE A DAY FOR HEART AND BLOOD PRESSURE Last Filled: 11/10/23 (Active at [facility]) Rx Expiration Date: 06/30/24 Days Supply: 90 Remote OMEPRAZOLE 20MG CAP,EC TAKE ONE CAPSULE BY MOUTH EVERY DAY FOR STOMACH Last Filled: 07/30/23 (Active at [facility]) Rx Expiration Date: 06/30/24 Days Supply: 90 OUTPT OMEPRAZOLE 20MG EC CAP (Status = Active) TAKE ONE CAPSULE BY MOUTH EVERY MORNING 30 MINUTES BEFORE BREAKFAST FOR GASTROESOPHAGEAL REFLUX DISEASE Rx# [id number] Last Released: 11/12/23 Qty/Days Supply: Rx Expiration Date: 08/08/24 Refills Remainin Indication: FOR GASTROESOPHAGEAL REFLUX DISEASE OUTPT PRIMIDONE 50MG TAB (Status = Active) TAKE ONE TABLET BY MOUTH ONCE DAILY FOR SIMPLE SEIZURE Rx# [id number] Last Released: 11/12/23 Qty/Days Supply: Rx Expiration Date: 08/08/24 Refills Remainin Indication: FOR SIMPLE SEIZURE Remote PRIMIDONE 50MG TAB TAKE ONE TABLET BY MOUTH THREE TIMES A DAY FOR TREMORS Last Filled: 07/30/23 (Active at [facility]) Rx Expiration Date: 06/30/24 Days Supply: 90 OUTPT QUETIAPINE FUMARATE 100MG TAB (Status = Active) TAKE ONE TABLET BY MOUTH AT BEDTIME FOR ANXIETY Rx# [id number] Last Released: 10/30/23 Qty/Days Supply: Rx Expiration Date: 11/29/23 Refills Remainin Indication: FOR ANXIETY Remote QUETIAPINE FUMARATE 200MG TAB TAKE ONE-HALF TABLET BY MOUTH AT BEDTIME FOR ANXIETY Last Filled: 07/01/23 (Active at [facility]) Rx Expiration Date: 04/23/24 Days Supply: 30 OUTPT SERTRALINE HCL 100MG TAB (Status = Active) TAKE ONE TABLET BY MOUTH ONCE DAILY FOR POSTTRAUMATIC STRESS SYNDROME Rx# [id number] Last Released: 11/12/23 Qty/Days Supply: Rx Expiration Date: 08/08/24 Refills Remainin Indication: FOR POSTTRAUMATIC STRESS SYNDROME OUTPT TRAZODONE HCL 100MG TAB (Status = Active) TAKE 1/2 - 1 TABLET BY MOUTH AT BEDTIME NEEDED FOR INSOMNIA ASSOCIATED WITH DEPRESSION Rx# [id number] Last Released: 11/14/23 Qty/Days Supply: Rx Expiration Date: 11/13/24 Refills Remainin Indication: FOR INSOMNIA ASSOCIATED WITH DEPRESSION SUPPLIES PHARMACY TERMS AND POSSIBLE PATIENT ACTIONS INPT = [place] inpatient order IV = [place] intravenous medication OUTPT = [place] outpatient prescription PHARMACY POSSIBLE PATIENT TERMS EXPLANATION ACTIONS -------- - ACTIVE A prescription that can be If you have refills, filled at the local [place] pharmacy. you may request a refill of this prescription from your [place] pharmacy. CLINIC A medication you received during If you have questions a visit to a [place] clinic or about this medication emergency department. contact your [place] healthcare team. DISCONTINUED A prescription your provider has Contact your [facility] stopped. It is no longer healthcare team if you available to be sent to you or need more of this picked up at the [place] pharmacy medication. window. A prescription which is [...] or out of prescription from either the [place] date, please tell your or non VA providers that was VA healthcare team. filled outside the VA. Or, it may be an [id number] (OTC), herbal, dietary supplements or sample medication. [...] ==== /gurwinder/ Jose Fisher OD Fee Basis Collision Mechanic Signed: 11/14/2023 15:40 for REUBEN ANTUNEZ JR OPTOMETRY STUDENT /gurwinder/ Jose Fisher OD Fee Basis Collision Mechanic Cosigned: 11/14/2023 15:40 11/14/2023 ADDENDUM STATUS: COMPLETED I reviewed all findings with the health outcomes liaison. I performed the slit lamp exam and dilated fundus exam. New pt to us so will have him rtc for VF in Dec. Progress note reviewed and edited as needed. I established the plan of care and educated the patient about his conditions. Pt deferred receiving a list of current medications /gurwinder/ Jose Fisher OD Fee Basis Collision Mechanic Signed: 11/14/2023 15:40 JOSE FISHER [place] [facility]
--- OUTSIDE RECORDS SUMMARY | 2024-09-01 14:58 | XMS_ITS | Encounter Summary ---
Author Name [facility] [place] [facility] [place] [facility] [place] Address [address] [place] [address] Care Team Providers Care Golf Technician Name Role Phone ERNESTO ARBOLEDA Primary [...] PART A August 12, 2008 PART A [id number] Dawson YOUNGER PATIENT MEDICARE (WNR) MEDICARE (M) PART B August 12, 2008 PART B [id number] Dawson YOUNGER PATIENT MEDICARE (WNR) MEDICARE (M) PART A August 12, 2008 PART A [id number] [phone] Dwason YOUNGER PATIENT MEDICARE (WNR) MEDICARE (M) PART B August 12, 2008 PART B [id number] Dawson YOUNGER PATIENT MEDICARE (WNR) MEDICARE (M) PART A August 12, 2008 PART A [id number] [phone] Dawson YOUNGER PATIENT MEDICARE (WNR) MEDICARE (M) PART A August 12, 2008 PART A [id number] Dawson YOUNGER PATIENT MEDICARE (WNR) MEDICARE (M) PART B August 12, 2008 PART B [id number] Dawson YOUNGER PATIENT MEDICARE (WNR) MEDICARE (M) PART B August 12, 2008 PART B [id number] Dawson YOUNGER PATIENT MEDICARE (WNR) MEDICARE (M) PART A August 12, 2008 PART A [id number] [phone] Dawson YOUNGER PATIENT MEDICARE (WNR) MEDICARE (M) PART B August 12, 2008 PART B [id number] Dawson YOUNGER PATIENT MEDICARE PART D (WNR) PRESCRIPT ION PART D Apr 14, 2015 PART D [id number] Dawson YOUNGER PATIENT UNICARE PREFERRED PROVIDER ORGANIZAT ION (PPO) [facility] N August 12, 2008 [id number] [phone] Dawson YOUNGER PATIENT UNICARE MEDICARE [facility] August 12, 2008 [id number] [phone] Dawson YOUNGER PATIENT UNICARE-G. [employer] MEDICAL EXPENSE (OPT/PROF ) [facility] N August 12, 2008 [id number] [phone] Dawson YOUNGER PATIENT [employer] EXPENSE (OPT/PROF ) [facility] N August 12, 2008 [id number] Dawson YOUNGER PATIENT Selected Encounter This [...] PRIMARY Post-traumatic stress disorder, unspecified LIU HERNANDEZ May 26, 2024 03:11 PM SECONDARY Unspecified dementia, moderate, with anxiety LIU HERNANDEZ Plan of Treatment: Future Appointments (+ 6 months) and Future Tests (+/- 45 days) The Plan of Treatment section includes future care activities for the patient from all [place] treatmentfacilities. This section includes future appointments and [...] 2024 03:00 PM AMBULATORY - NONE [facility] Jul 27, 2024 10:30 AM AMBULATORY - MEDICINE [facility] Sep 14, 2024 02:00 PM AMBULATORY - MEDICINE [facility] Sep 14, 2024 02:30 PM AMBULATORY - MEDICINE [facility] Oct 19, 2024 01:00 PM AMBULATORY - MEDICINE [facility] Lab Results: +/- 30 days of the [...] Type Comment Jun 22, 2024 01:41 PM [facility] TSH SERUM Specimen Type: SERUM No comment entered. Ordering Provider: ERNESTO ARBOLEDA Report Released Date/Time: Jun 16, 2024 03:51 PM Reporting Lab: [address] [address] Performing Lab: [address] [address] TSH 2.04 u[IU]/mL 0.35-5.00 Jun 22, 2024 01:41 PM [facility] BASIC METABOLIC PANEL (non-fasting) SERUM Specimen Type: SERUM No comment entered. Ordering Provider: ERNESTO ARBOLEDA Report Released Date/Time: Jun 16, 2024 03:51 PM Reporting Lab: [address] [address] Performing Lab: [address] [address] UREA NITROGEN 16 mg/dL 7-25 GLUCOSE 122 mg/dL H 65-100 SODIUM 139 mmol/L 135-145 POTASSIUM 4.3 mmol/L 3.5-5.0 CHLORIDE 105 mmol/L 100-110 CO2 24 meq/L 20-30 CALCIUM 9.1 mg/dL 8.5-10.2 CREATININE, Serum 1.30 mg/dL 0.50-1.40 eGFR(CKD-EPI 2020) 55 mL/min L >60 Jun 22, 2024 01:41 PM [facility] LIPID PANEL, NON FASTING SERUM Specim en Type: SERUM No comment entered. Ordering Provider: ERNESTO ARBOLEDA Report Released Date/Time: Jun 16, 2024 03:51 PM Reporting Lab: [address] [address] Performing Lab: [address] [address] CHOLESTEROL 213 mg/dL H TRIGLYCERIDE 164 mg/dL H 0-150 LDL calculated 123 mg/dL 0-129 CHOL/HDL 3.7 HDL CHOLESTEROL 57 mg/dL 40-60 Jun 22, 2024 01:41 PM [facility] LIVER FUNCTION SERUM Specimen Type: SERUM No comment entered. Ordering Provider: ERNESTO ARBOLEDA Report Released Date/Time: Jun 16, 2024 03:51 PM Reporting Lab: [address] [address] Performing Lab: [facility] [address] [facility] [facility] [address] PROTEIN,TOTAL 7.7 g/dL 6.0-8.3 ALBUMIN 3.8 g/dL 3.5-5.0 ALKALINE PHOSPHATASE 72 U/L 40-150 AST 11 U/L 5-34 ALT 12 U/L BILIRUBIN, TOTAL 0.4 mg/dL 0.2-1.2 Jun 22, 2024 01:41 PM [facility] HEMOGLOBIN A1C PANEL BLOOD Specimen T ype: [...] Jun 16, 2024 03:51 PM Reporting Lab: [address] [address] Performing Lab: [address] [address] HEMOGLOBIN A1C 6.0 H 4.0-5.6 Jun 22, 2024 01:41 PM [facility] CBC AND DIFF (AUTO) BLOOD Specimen Ty pe: BLOOD No comment entered. Ordering Provider: ERNESTO ARBOLEDA Report Released Date/Time: Jun 16, 2024 03:51 PM Reporting Lab: [address] [address] Performing Lab: [address] [address] WBC 6.46 10*3/uL 4.50-11.00 RBC 5.21 10*6/uL [...] 0.0 0.0-0.0 NRBC, ABS 0.00 10*3/uL 0.00-0.00 Advance Directives: All historical and current Section [...] ENTRY DATE: MAY 26, 2024@15:01:42 AUTHOR: LIU HERNANEDZ COSIGNER: URGENCY: STATUS: COMPLETED LOCATION: This is a CVT visit, patient was in the [facility] and seen by myself remotely from my home via synchronous telehealth equipment operated from the clinic with staff assistance. gave their permission to hold visit via this equipment. CHART REVIEW: seen for initial MH consult 09/23/23, noting: Evington is an 78 year old , , 100% [place] looking to transfer his PTSD treatment from [place] to here after relocating. He is only [...] about balance and falling. He shared with typewriter ribbon winder an acute injury where he injured his back about two weeks ago and did not go to the ER to be evaluated. Manufacturing Process Engineer will place neuropsychological consult to assess his cognition and advised him to stop to be triaged by the nurse on his way out to assess his back injury. Still gets nightmares-- maybe once a month. Tries to avoid things that will remind him of it. DSM5 DIAGNOSES: PTSD, chronic SC: 70% for PTSD. Per Social Work intake, Evington reported: We were living in [place] for 18yrs, in [place], the weather just became too difficult for me bc of my breathing. I was in the hospital for a week last year bc of my COPD and asthma. When I told my that I thought it was time to move back, she didn't waste a minute to call her friends and tell them, she is very happy. They bought a home in [place], the same city they used to live in. They have friends and family here, some of their children and grandchildren are in [facility]. SC: POST-TRAUMATIC STRESS DISORDER (70%-SC) PRESENTATION AT TIME OF INITIAL VISIT WITH MYSELF 11/13/23: Evington reports he and his moved from [place] in July 2023, noting he was originally from [facility] but moved to [place] after he retired and has returned here [...] CCB for ventricular rate control. + Agent Baker exposure Then noted October 2023: 2. Chronic hypoxemic respiratory failure: 3. COPD - Chronic obstructive pulmonary disease: 2 L O2 dependent at all times although frequently nonadherent according to his . Not using oxygen during the visit. SPO2 ranging from 90 to 97% but mostly around 93%. Sees [facility] in [place] prior to moving here and was maintained [...] Followed with [facility]ology Dr. Guardado in [place]. Cardiology 1 consult placed today for continuation of care. informs that he had an echocardiogram last year but does not have that result. No records yet from Dr. Guardado in [place]. 5. PTSD - Post-traumatic stress disorder: Following with [facility]. 6. Obstructive sleep apnea 7. CKD stage 3: Unknown if stable. Getting labs today. 8. FAYE - Generalised anxiety disorder: Upcoming initial appointment with [facility] H/. 9. Cognitive decline 10. CAD - Coronary Artery Disease ([facility] [id number]): Maintained on statin, BB, DOAC. Continued. 11. Exposure to potentially hazardous substance 12. Glaucoma: Followed by [place] [facility]. 13. Insomnia 14. Bilateral hearing loss 15. GERD - Gastro-Esophageal Reflux Disease ([facility] [id number]): Asymptomatic since starting PPI. Continue omeprazole. SUBSTANCE [...] head and states he would go to [place] to have holes drilled in his head [...] speed and working memory simultaneously on the [employer] Tests). Based on the results of the current neuropsychological evaluation, the met DSM-5 criteria for a major neurocognitive disorder due to multiple etiologies. DIAGNOSIS: Based on the results of the current neuropsychological evaluation, the Evington met ICD-10 criteria for: -F02.81 Dementia in other diseases classified elsewhere, unspecified severity, without behavioral disturbance RECOMMENDATIONS: 1. Given that the Evington is experiencing global cognitive deficits, current neuroimaging, [...] can be found at the following website: [email or web address] 12. Alcohol is known to have [...] If urgent treatment is needed, call [phone] or go to the nearest Emergency Room 2. To schedule or change an appointment, inquire about medication refills, etc: call office number during normal office hours Diagnoses: PTSD - Post-traumatic stress disorder ([facility] [id number]) - Post-traumatic stress disorder, unspecified (ICD-10-CM F43.10) (Primary) Insomnia ([facility] [id number]) - Insomnia, unspecified (ICD-10-CM G47.00) Dementia ([facility] [id number]) - Unspecified dementia, moderate, with anxiety (ICD-10-CM F03.B4) /gurwinder/ LIU HERNANDEZ M.D. Signed: 05/26/2024 15:12 LIU HERNANDEZ [facility]
--- OUTSIDE RECORDS SUMMARY | 2024-09-01 14:58 | XMS_ITS | Encounter Summary ---
Author Name [facility] [place] [facility] [place] [facility] [place] Address [address] [place] [address] Care Team Providers Care Motor Hotel Manager Name Role Phone ERNESTO ARBOLEDA Primary [...] PART A August 12, 2008 PART A [id number] Dawson YOUNGER PATIENT MEDICARE (WNR) MEDICARE (M) PART B August 12, 2008 PART B [id number] Dawson YOUNGER PATIENT MEDICARE (WNR) MEDICARE (M) PART A August 12, 2008 PART A [id number] Dawson YOUNGER PATIENT MEDICARE (WNR) MEDICARE (M) PART B August 12, 2008 PART B [id number] [id number] Dawson YOUNGER PATIENT MEDICARE (WNR) MEDICARE (M) PART A August 12, 2008 PART A [id number] [phone] Dawson YOUNGER PATIENT MEDICARE (WNR) MEDICARE (M) PART B August 12, 2008 PART B [id number] Dawson YOUNGER PATIENT MEDICARE (WNR) MEDICARE (M) PART B August 12, 2008 PART B [id number] [phone] Dawson YOUNGER PATIENT MEDICARE (WNR) MEDICARE (M) PART A August 12, 2008 PART A [id number] Dawson YOUNGER PATIENT MEDICARE (WNR) MEDICARE (M) PART A August 12, 2008 PART A [id number] Dawson YOUNGER PATIENT MEDICARE (WNR) MEDICARE (M) PART B August 12, 2008 PART B [id number] Dawson YOUNGER PATIENT MEDICARE PART D (WNR) PRESCRIPT ION PART D Apr 14, 2015 PART D [id number] [phone] Dawson YOUNGER PATIENT UNICARE PREFERRED PROVIDER ORGANIZAT ION (PPO) [facility] August 12, 2008 [id number] Dawson YOUNGER PATIENT [facility]IC[facility] August 12, 2008 [id number] [phone] Dawson YOUNGER PATIENT UNICARE-G. I.C. MEDICAL EXPENSE (OPT/PROF ) [facility] August 12, 2008 [id number] Dawson YOUNGER PATIENT [facility] MED[employer] EXPENSE (OPT/PROF ) [facility] August 12, 2008 [id number] Dawson YOUNGER PATIENT Selected Encounter This section includes the information on record at [place] for the Encounter. Date/Time Encounter Type Encounter Description Reason Provider Source Jun 22, 2024 01:00 PM OFFICE O/P EST HI 40 MIN PRIMARY CARE/MEDICINE ICD-10-CM F03.B4 Unspecified dementia, moderate, with anxiety ERNESTO ARBOLEDA Javad Encounter Template Text not used by [place] Assessments - Encounter Diagnoses This section includes the primary and secondary diagnoses documented for the Encounter. Date/Time Primary/Secondary Diagnosis Diagnosis Name Provider Source Jun 22, 2024 06:32 PM PRIMARY Unspecified dementia, moderate, with anxiety ERNESTO ARBOLEDA [place] Jun 22, 2024 06:32 PM SECONDARY Athscl heart disease of [place] coronary artery w/o ang pctrs ERNESTO ARBOLEDA [place] Jun 22, 2024 06:32 PM SECONDARY Chronic kidney disease, stage 3 unspecified ERNESTO ARBOLEDA [place] Jun 22, 2024 06:32 PM SECONDARY Chronic obstructive pulmonary disease, unspecified ERNESTO ARBOLEDA [facility] 11, 2025 06:32 PM SECONDARY Chronic respiratory failure with hypoxia ERNESTO ARBOLEDA [place] Jun 22, 2024 06:32 PM SECONDARY Gastro-esophageal reflux disease without esophagitis ERNESTO ARBOLEDA [facility] 11, 2025 06:32 PM SECONDARY Generalized anxiety disorder ERNESTO ARBOLEDA [facility] 11, 2025 06:32 PM SECONDARY Obstructive sleep apnea (adult) (pediatric) ERNESTO ARBOLEDA [place] Jun 22, 2024 06:32 PM SECONDARY Paroxysmal atrial fibrillation ERNESTO ARBOLEDA [facility] 11, 2025 06:32 PM SECONDARY Post-traumatic stress disorder, unspecified ERNESTO ARBOLEDA [facility] 11, 2025 06:32 PM SECONDARY Pure hyperglyceridemia ERNESTO ARBOLEDA [place] Plan of Treatment: Future Appointments (+ 6 months) and Future Tests (+/- 45 days) The Plan of Treatment section includes future care activities for the patient from all [place] treatmentfacilities. This section includes future appointments and [...] 27, 2024 10:30 AM AMBULATORY - MEDICINE [facility] TRACYHumberto [facility] Sep 14, 2024 02:00 PM AM[place]ULAT[place] - [place]ICINE [place] [facility] Sep 14, 2024 02:30 PM [facility] Oct 19, 2024 01:00 PM [facility]ULAT[facility] - [facility] Active, Pending, and Scheduled Orders This section [...] Order BHIP PSYCH IATRIC MEDICATION/SOPC OUTPT Cons [facility] Lab Results: +/- 30 days of [...] Type Comment Jun 22, 2024 01:41 PM [place] TSH SERUM Specimen Type: SERUM No comment entered. Ordering Provider: ERNESTO ARBOLEDA Report Released Date/Time: Jun 16, 2024 03:51 PM Reporting Lab: [address] [address] Performing Lab: [address] [address] TSH 2.04 u[IU]/mL 0.35-5.00 Jun 22, 2024 01:41 PM [place] BASIC METABOLIC PANEL (non-fasting) SERUM Specimen Type: SERUM No comment entered. Ordering Provider: ERNESTO ARBOLEDA Report Released Date/Time: Jun 16, 2024 03:51 PM Reporting Lab: [address] [address] Performing Lab: [address] [address] UREA NITROGEN 16 mg/dL 7-25 GLUCOSE 122 mg/dL H 65-100 SODIUM 139 mmol/L 135-145 POTASSIUM 4.3 mmol/L 3.5-5.0 CHLORIDE 105 mmol/L 100-110 CO2 24 meq/L 20-30 CALCIUM 9.1 mg/dL 8.5-10.2 CREATININE, Serum 1.30 mg/dL 0.50-1.40 eGFR(CKD-EPI 2020) 55 mL/min L >60 Jun 22, 2024 01:41 PM [place] LIPID PANEL, NON FASTING SERUM Specim en Type: SERUM No comment entered. Ordering Provider: ERNESTO ARBOLEDA Report Released Date/Time: Jun 16, 2024 03:51 PM Reporting Lab: [address] [address] Performing Lab: [address] [address] CHOLESTEROL 213 mg/dL H TRIGLYCERIDE 164 mg/dL H 0-150 LDL calculated 123 mg/dL 0-129 CHOL/HDL 3.7 HDL CHOLESTEROL 57 mg/dL 40-60 Jun 22, 2024 01:41 PM [place] LIVER FUNCTION SERUM Specimen Type: SERUM No comment entered. Ordering Provider: ERNESTO ARBOLEDA Report Released Date/Time: Jun 16, 2024 03:51 PM Reporting Lab: [address] [address] Performing Lab: [address] [address] PROTEIN,TOTAL 7.7 g/dL 6.0-8.3 ALBUMIN 3.8 g/dL 3.5-5.0 ALKALINE PHOSPHATASE 72 U/L 40-150 AST 11 U/L 5-34 ALT 12 U/L BILIRUBIN, TOTAL 0.4 mg/dL 0.2-1.2 Jun 22, 2024 01:41 PM [place] HEMOGLOBIN A1C PANEL BLOOD Specimen T ype: [...] Jun 16, 2024 03:51 PM Reporting Lab: [address] [address] Performing Lab: [address] [address] HEMOGLOBIN A1C 6.0 H 4.0-5.6 Jun 22, 2024 01:41 PM [place] CBC AND DIFF (AUTO) BLOOD Specimen Ty pe: BLOOD No comment entered. Ordering Provider: ERNESTO ARBOLEDA Report Released Date/Time: Jun 16, 2024 03:51 PM Reporting Lab: [address] [address] Performing Lab: [address] [address] WBC 6.46 10*3/uL 4.50-11.00 RBC 5.21 10*6/uL [...] 0.0 0.0-0.0 NRBC, ABS 0.00 10*3/uL 0.00-0.00 Vital Signs: All taken on the encounter date This section contains inpatient and outpatient Vital Signs collected on the date of the Encounter. Date/Time Temperature Pulse Blood Pressure Respiratory Rate SP02 Pain Height Weight Body Mass Index Source Jun 22, 2024 01:04 PM 84 162/83 97 190 27 [facility] IELD Advance Directives: All historical and current [...] Encounter. Date/Time Encounter Note(s) Provider Source Jun 22, 2024 01:05 PM PRIMARY CARE NURSE PRACTITIONER OUTPATIENT NOTE: LOCAL TITLE: NURSE PRACTITIONER OUTPATIENT NOTE STANDARD TITLE: PRIMARY CARE NURSE PRACTITIONER OUTPATIENT NOTE DATE OF NOTE: JUN 22, 2024@13:05 ENTRY DATE: JUN 22, 2024@13:05:09 AUTHOR: ERNESTO ARBOLEDA COSIGNER: URGENCY: STATUS: COMPLETED PRIMARY CARE VISIT SHANICE YOUNGER, is a 78 yo WHITE MALE [place] who [facility] at the [place] [facility]. TYPE OF VISIT: Face to face 78-year-old male with extensive past medical history including chronic hypoxemic respiratory failure due to end-stage COPD, 2 L O2 dependent at all times, paroxysmal atrial fibrillation status post ablation x2, toxic exposure with agent orange, CAD, AMY on CPAP, CKD stage III, PTSD, anxiety, insomnia, bilateral hearing loss, cognitive decline, and glaucoma presented in regular follow-up accompanied by his . He is comanaged with a community PCP. Since last visit, he was evaluated by neuropsych and testing testing results were consistent with dementia versus other major neurocognitive disorder. 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 These results were discussed with the and his . He had 2 falls in May. He went to the emergency department after the last fall and was found to have 2 lateral rib fractures. Falls were preceded by dizziness and it was discovered that he had been taking twice the dose of his medications. His is now monitoring his medications. There been no further episodes of dizziness and no falls. He followed up with pulmonology 04/20 who recommended continue Trelegy and as needed DuoNeb. Note that he remains on 2L nocturnal oxygen. He underwent PSG in November which found an AHI 20.7 recommended continue with PAP therapy. Obtained hearing aids from [place] [facility] but he is not wearing them today. Recent labs and diagnostic studies were reviewed with the as noted. Elevated blood pressure also noted today at 162/83. The patient endorses not taking his medications today and is not sure if he took them yesterday. All medications were reconciled during this visit. HEALTHCARE PROVIDERS: Community PCP: BETINA Ulloa Audiology: [place] Dermatology: [place] MH: [facility]. Hernandez Optometry: [place] Pulmonology: Kaitlynn Muhammad NP Social Hx: The is and lives with his . He stopped smoking in 1984 after 30 pack years. He drinks a glass of wine nightly. No MJ. No regular exercise. He leads a sedentary lifestyle. 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 COMBAT SERVICE INDICATED: No MEDICAL HISTORY Active Problem Hypertriglyceridaemia E78.1 03/14/2024 ERNESTO ARBOLEDA TIA - transient ischemic attack G45 03/14/2024 ERNESTO ARBOLEDA Dementia F03.B4 01/21/2024 LIU HERNANDEZ Long-term current [...] F [36.2 C] (02/26/2024 13:11) Blood Pressure 162/83 (06/22/2024 13:04) Pulse 84 (06/22/2024 13:04) Respiration 18 (08/07/2023 15:14) Pain 0 (09/10/2023 11:32) BMI BMI: 27.3 Weight 190 lb [86.18 kg] (06/22/2024 13:04) Pulse Oximetry 97% (06/22/2024 13:04) ASSISTIVE DEVICES: None REVIEW OF SYSTEMS: CONSTITUTIONAL: [...] extremities, or unilateral weakness. EXAMINATION General: Well-appearing older in no obvious distress. Mental Status: Alert and oriented x 3. Speech somewhat tangential. Head: Normocephalic. Eyes: PERRLA. EOMI. Anicteric sclerae. ENT: Moist oral mucosa. Neck: Supple. No JVD. No LAD. No [...] gait. Integument: Skin warm and dry. No concerning lesions or rashes. Psych: Normal mood and affect. ALLERGIES: ========= LISINOPRIL, ATORVASTATIN >> HEALTH MAINTENANCE PREVENTIVE MEDICINE GOALS AIMS Testing DUE NOW Falls & Incontinence Screen Aug 05 HIV Screening DUE NOW Mental Health Treatment Plan DUE NOW Medication Reconciliation DUE NOW (Optional) Whole Health Documentation DUE NOW ASSESSMENT/PLAN: Active problems - Computerized Problem List is the source for the following: Dementia: No behavioral disturbance. He has been seen in consult by neuropsych. Testing results consistent with dementia or other major neurocognitive disorder. 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 Discussed with the and his . Community PCP has referred him to neurology. Chronic hypoxemic respiratory failure: COPD - Chronic obstructive pulmonary disease: 2 L O2 dependent at all times although frequently nonadherent according to his . Not using oxygen during the visit. SPO2 ranging from 90 to 97% but mostly around 93%. Has established care with Dr. Diana since moving here from [place]. [facility]. CAD: Long-term use of anticoagulant: PAF - [...] exertional dyspnea or other anginal equivalent symptoms. Community PCP has referred him to cardiology and he has an upcoming appointment. FAYE - Generalized anxiety disorder: PTSD - Post-traumatic stress disorder: Following with [facility]. Obstructive sleep apnea: PSG in November found AHI 20.7. Recommended continuing CPAP which he endorses using at least 4 hours nightly most of the time. CKD stage 3: Stable. Avoid nephrotoxic agents. Advised to drink plenty of water. Not currently following with nephrology. Bilateral hearing loss: Reports much improvement in his hearing when I remember to wear them from the hearing aids issued by [place] [facility]. GERD - Gastro-Esophageal Reflux Disease ([facility] [id number]): Asymptomatic since starting PPI. Continue omeprazole. Hypertriglyceridemia: Intolerant of statins. Continue fenofibrate. Check lipid panel prior to next visit. FOLLOW UP: RTC Below & sooner PRN UPCOMING APPOINTMENTS: 06/22/2024 15:00 [facility] 08/25/2024 11:30 SPR CVT [facility] PSYTR PAT 08/25/2024 11:31 [facility] CVT [facility] PSYTR PRO 09/14/2024 14:30 [facility] OPTOMETRY 3 10/19/2024 13:00 COM CARE-NEUROLOGY On the date of the encounter, I spent 40 minutes on some or all of the following: chart review, history, physical examination, treatment planning, education and counselling of the patient/family/caregiver, placing orders, communicating with other health care providers, and documentation in the electronic health record. No barriers; Patient understands and agrees to [...] this [facility] ([facility]) and dispensed from another [place] or [facility] facility (remote) as well as [...] /gurwinder/ ERNESTO ARBOLEDA NP NURSE PRACTITIONER Signed: 06/22/2024 18:31 ERNESTO ARBOLEDA Jun 22, 2024 01:00 PM PREVENTIVE MEDICIN E NURSING NOTE: LOCAL TITLE: CLINICAL REMINDERS/NURSING STANDARD TITLE: PREVENTIVE MEDICINE NURSING NOTE DATE OF NOTE: JUN 22, 2024@13:00 ENTRY DATE: JUN 22, 2024@13:00:27 AUTHOR: KANNAN YEE EXP COSIGNER: URGENCY: STATUS: COMPLETED Sexual Orientation: The patient thinks of their sexual orientation as: Straight or Heterosexual RHS Screen: RHS Screen Environmental Check Screening was not completed at this time due to: Another adult present /gurwinder/ KANNAN YEE LPN Licensed Practical Nurse Signed: 06/22/2024 13:00 KANNAN YEE
--- OUTSIDE RECORDS SUMMARY | 2024-09-01 14:58 | XMS_ITS ---
Author Name [facility] Organization [facility] [place] Address [address] [place] [address] Care Team Providers Care Seam Closer Name Role Phone ERNESTO ARBOLEDA Primary Care [...] PART A August 12, 2008 PART A [id number] Dawson YOUNGER PATIENT MEDICARE (WNR) MEDICARE (M) PART B August 12, 2008 PART B [id number] Dawson YOUNGER PATIENT MEDICARE (WNR) MEDICARE (M) PART A August 12, 2008 PART A [id number] Dawson YOUNGER PATIENT MEDICARE (WNR) MEDICARE (M) PART B August 12, 2008 PART B [id number] [facility] [phone] Dawson YOUNGER PATIENT MEDICARE (WNR) MEDICARE (M) PART A August 12, 2008 PART A [id number] Dawson YOUNGER PATIENT MEDICARE (WNR) MEDICARE (M) PART B August 12, 2008 PART B [id number] Dawson YOUNGER PATIENT MEDICARE (WNR) MEDICARE (M) PART B August 12, 2008 PART B [id number] [facility] Dawson YOUNGER PATIENT MEDICARE (WNR) MEDICARE (M) PART A August 12, 2008 PART A [id number] [facility] Dawson YOUNGER PATIENT MEDICARE (WNR) MEDICARE (M) PART A August 12, 2008 PART A [id number] Dawson YOUNGER PATIENT MEDICARE (WNR) MEDICARE (M) PART B August 12, 2008 PART B [id number] [facility] [phone] [id number] Dawson YOUNGER PATIENT MEDICARE PART D (WNR) PRESCRIPT ION PART D Apr 14, 2015 PART D [id number] Dawson YOUNGER PATIENT UNICARE PREFERRED PROVIDER ORGANIZAT ION (PPO) [facility] August 12, 2008 [id number] Dawson YOUNGER PATIENT [facility] MEDICARE SUPPLEMEN [employer]INT August 12, 2008 [id number] [phone] [phone] Dawson YOUNGER PATIENT UNICARE-G. [employer] MEDICAL EXPENSE (OPT/PROF ) [facility] August 12, 2008 [id number] [phone] Dawson YOUNGER PATIENT [employer] EXP[employer] (OPT/PROF ) [facility] August 12, 2008 [id number] Dawson YOUNGER PATIENT Selected Encounter This section includes the information on record at [place] for the Encounter. 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 Date/Time Primary/Secondary Diagnosis Diagnosis Name Provider Source Jul 27, 2024 11:53 AM PRIMARY Capslr glaucoma w/pseudxf lens, bilateral, moderate stage MILLER[facility]ANSHU [facility] Jul 27, 2024 11:53 AM SECONDARY Dry eye syndrome of bilateral lacrimal glands [facility] Jul 27, 2024 11:53 AM SECONDARY Macular cyst, hole, or pseudohole, left eye [facility] Jul 27, 2024 11:53 AM SECONDARY Presbyopia HIMANSHU MILLER [facility] Plan of Treatment: Future Appointments (+ 6 months) and Future Tests (+/- 45 days) The Plan of Treatment section includes future care activities for the patient from [facility] [place] [facility] This section includes future appointments and future orders which are active, pending or scheduled. Future Appointments This section includes appointments that were scheduled to occur 6 months from the date of the Encounter, up to a maximum of 20 appointments. The data comes from all [facility]. Appointment Date/Time Appointment Type Appointme nt Facility Name Sep 14, 2024 02:00 PM AMBULATORY - MEDICINE [facility] Sep 14, 2024 02:30 PM [facility] Oct 19, 2024 01:00 PM [facility] Active, Pending, and Scheduled Orders This section includes a listing of several types of active, pending, and scheduled orders, including clinic medications orders, diagnostic test orders, procedure orders and consult orders; where the start date of the order is 45 days before the date of the Encounter or 45 days after the date of theEncounter. The data comes from all [facility] treatment facilities. Test Date/Time Test Type Test Details Facility Name Jul 27, 2024 09:57 AM Consult Order BHIP PSYCH IATRIC MEDICATION/SOPC OUTPT Cons Obstetrics Teacher's Choice [facility] [facility] Social History: Smoking Status (Most current) [...] 06, 2023 01:17 PM VA-TOBACCO NEVER USED [facility] Advance Directives: All historical and current [...] Encounter Note(s) Provider Source Jul 27, 2024 07:29 AM OPTOMETRY NOTE: LOCAL TITLE: OPTOMETRY NOTE STANDARD TITLE: OPTOMETRY NOTE DATE OF NOTE: JUL 27, 2024@07:29 ENTRY DATE: JUL 27, 2024@07:29:33 AUTHOR: HIMANSHU MILLER EXP COSIGNER: URGENCY: STATUS: COMPLETED Eye Examination for: SHANICE YOUNGER, 78 year old WHITE MALE AGUSTÍN: 10.24.24 Reason for Visit/CC: Patient here for follow-up care. reports he is not seeing very well anymore. Reports he loves to read and reports he has to close eyes and re-open for it to clear up. Reports left eye feels scratchy all the time. Reports not currently using any ATs. Reports he has been using the Brimonidine once in morning and never increased to BID OD. Reports excellent compliance with Latanoprost and denies any hospitalizations that would increase supply at home to explain significant delay since last refill. 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 Partial thickness macular hole OS 4. SHARATH OU 5. RE,P (-) Pain: (-) NULL: (-) Diplopia: (-) Flashes: (-) Floaters: (-) Amaurosis Fugax/Tia's: (-) Eye Injury: (+) Eye Surgery: CE/PCIOL OU, YAG cap OU (-) TBI FOHx: (-) Glaucoma (-) ARMD (-) Blindness MHx: Code Description E78.1 Hypertriglyceridaemia ([facility] [id number]) G45.9 TIA - transient ischemic attack ([facility] [id number]) F03.B4 Dementia ([facility] [id number]) Z79.01 Long-term current use of anticoagulant ([facility] [id number]) J96.11 Chronic hypoxemic respiratory failure ([facility] [id number]) J44.9 COPD - Chronic obstructive pulmonary disease ([facility] [id number]) I48.0 PAF - Paroxysmal atrial fibrillation ([facility] [id number]) F43.10 PTSD - Post-traumatic stress disorder ([facility] [id number]) G47.33 Obstructive sleep apnea ([facility] [id number]) N18.30 CKD stage 3 ([facility] [id number]) F41.1 FAYE - Generalised anxiety disorder ([facility] [id number]) R41.89 Cognitive decline ([facility] [id number]) I25.10 CAD - Coronary Artery Disease ([facility] [id number]) Z77.29 Exposure to potentially hazardous substance ([facility] [id number]) H40.9 Glaucoma ([facility] [id number]) G47.00 Insomnia ([facility] [id number]) R69. Bilateral hearing loss ([facility] [id number]) K21.9 GERD - Gastro-Esophageal Reflux Disease ([facility] [id number]) SYSTEMIC MEDICATIONS/OCULAR MEDICATIONS: Active Outpatient Medications (including Supplies): Active Outpatient Medications Status 1) ALBUTEROL 90MCG (CFC-F) 200D ORAL INHL INHALE 2 PUFFS BY ACTIVE MOUTH FOUR TIMES DAILY NEEDED Indication: FOR BRONCHOSPASM 2) BRIMONIDINE TARTRATE 0.2% OPH SOLN INSTILL 1 DROP INTO THE ACTIVE RIGHT EYE TWICE DAILY FOR GLAUCOMA Indication: FOR INCREASED PRESSURE IN THE EYE 3) CARBOXYMETHYLCELLULOSE NA 0.5% OPH SOLN INSTILL 1 DROP INTO ACTIVE EACH EYE FOUR TIMES A DAY Indication: FOR DRY EYE 4) DABIGATRAN ETEXILATE 150MG ORAL CAP TAKE ONE CAPSULE BY ACTIVE MOUTH TWICE DAILY (ONCE OPENED, THE MEDICATION MUST BE USED WITHIN 4 MONTHS) Indication: TO PREVENT BLOOD CLOTS 5) DILTIAZEM (EQV-CARDIZEM) 240MG 24HR CAP TAKE ONE CAPSULE BY ACTIVE (S) MOUTH ONCE DAILY Indication: FOR ATRIAL FIBRILLATION 6) EZETIMIBE 10MG TAB TAKE ONE TABLET BY MOUTH ONCE DAILY TO ACTIVE LOWER CHOLESTEROL Indication: FOR HIGH CHOLESTEROL 7) FENOFIBRATE 48MG TAB TAKE ONE TABLET BY MOUTH ONCE DAILY ACTIVE Indication: FOR HIGH CHOLESTEROL 8) FUROSEMIDE 20MG TAB TAKE ONE TABLET BY MOUTH ONCE DAILY ACTIVE NEEDED TO REMOVE FLUID/CONTROL BLOOD PRESSURE Indication: FOR VISIBLE WATER RETENTION 9) LATANOPROST 0.005% OPH SOLN INSTILL 1 DROP INTO EACH EYE AT ACTIVE BEDTIME Indication: FOR INCREASED PRESSURE IN THE EYE 10) METOPROLOL SUCCINATE 50MG SA TAB TAKE ONE TABLET BY MOUTH ACTIVE ONCE DAILY FOR BLOOD PRESSURE/HEART Indication: FOR HIGH BLOOD PRESSURE 11) OMEPRAZOLE 20MG EC CAP TAKE ONE CAPSULE BY MOUTH EVERY ACTIVE MORNING 30 MINUTES BEFORE BREAKFAST Indication: FOR GASTROESOPHAGEAL REFLUX DISEASE 12) PRIMIDONE 50MG TAB TAKE ONE TABLET BY MOUTH ONCE DAILY ACTIVE Indication: FOR SIMPLE SEIZURE 13) QUETIAPINE FUMARATE 100MG TAB TAKE ONE TABLET BY MOUTH AT ACTIVE BEDTIME Indication: FOR MOOD AND PTSD 14) SERTRALINE HCL 100MG TAB TAKE ONE TABLET BY MOUTH ONCE DAILY ACTIVE Indication: FOR POSTTRAUMATIC STRESS SYNDROME ALLERGIES: LISINOPRIL, ATORVASTATIN VITALS (most recent, as listed in the electronic record): B/P: 162/83 (06/22/2024 13:04) Pulse: 84 (06/22/2024 13:04) Temperature: 97.2 F [36.2 C] (02/26/2024 13:11) Weight: 190 lb [86.18 kg] (06/22/2024 13:04) Height: 70 in [177.8 cm] (08/07/2023 15:14) BMI: BMI: 27.3 PERTINENT LABS: HEMOGLOBIN A1C TREND Collection DT Spec HGBA1c 06/22/2024 13:41 BLOOD 6.0 H 11/07/2023 13:19 BLOOD 5.9 H (-) Smoker: quit 1979 Current Rx with last BCVA: OD: +0.25-0.05m404 20/20 OS: +0.25-1.04n676 20/25+2 Add: +2.50 DVA ( )sc ( x )cc - [x]phoropter []specs []CL OD: 20/20-2 OS: 20/20-1 Entrance Testing: Pupil: PERRL (-)APD EOM: SAFE OU, (-)Pain/Diplopia CVF: FTFC OU Subjective Refraction: OD: +0.25-1.32w850 20/20 OS: +0.25-1.05x222 20/20-1 Add: +2.50 SLE: Lids/Lashes: dermatochalasis OU, MGD OU Conjunctiva: white and quiet bulbar conj OU, ping OU quiet palpebral conj OU Corneas: clear OU Iris: flat and clear OU, (-)TID OU AC: D & Q OU Angles: 4x4 OU TAP @ 10:49am OD 07 mmHg OS 08 mmHg [x][place] Tmax: JLV not responding OD: 19 OS: 17 Previous Pachymetry: OD: 571 OS: 597 Percent Reduction in IOP: OD: 63% OS: 53% Undilated Fundus Exam: Vit: syneresis OU Lens: PCIOL OU (+)PXF OS>OD C/D (Size and Rim Description) OD 0.80 no focal notching, thinning OS 0.75 no focal notching, thinning (-)Drance heme OU PPole OD clear OS clear Macula OD flat with pigment mottling OS flat with pigment mottling and ?partial thickness hole (-)SRF/SRH OU A/V: normal caliber OU Assessment/Plan: 1. Moderate capsular glaucoma OU currently on Latanoprost QHS OU and Brimonidine QAM OD (increase to BID was recommended in past but never initiated) with appropriate reduction in IOP with current utilization. No evidence of pigment dispersion OU. No known family history of glaucoma. No acute change in ONH appearance. Low index of suspicion for progression at present. -Pt ed re today's findings -Pt ed re glaucoma as well as the natural history of this diagnosis including prognosis. -Stress importance of compliance and persistency with medications -Continue Latanoprost QHS OU -Continue Brimonidine QAM OD only, updated order -Stress importance of continued follow-up appointments -Prichard repeated back the plan and education. -RTC 3 months for and CEE 2. Partial thickness macular hole OS - difficult assessment undialted but stable BCVA -Pt ed re today's findings -Prichard repeated back the plan and education. -Monitor 3. Dry Eye Syndrome OU - symptomatic -Pt ed re today's findings -Continue Artificial Tears QID OU - repeated back the plan and education. -Monitor 4. Refractive Error and Presbyopia OU -CPM -Monitor RTC 3 months or earlier PRN (x)Appointment with coordinated visual imaging (x) HVF 24-2 (x) RNFL OCT (x) Macular OCT (x) Pachymetry Glasses adjusted/repaired in office: () Yes (x) No If yes, how many pairs: Total Time: 40 Minutes *This includes time spent before, during and after the visit occurring on the day of service and does not include procedures coded separately. Time includes chart review, examination, counseling of patient/family/caregiver, ordering medications, ordering tests, ordering procedures, referring and communicating with other HCP, and documentation in the electronic health record. Time does not include procedures coded separately, time spent on a different calendar day or time of clinical staff. Education: Glaucoma: Patient was educated regarding glaucoma/glaucoma [...] of active outpatient prescriptions dispensed from this [place] (local) and dispensed from another VA or [...] (Tool #5) FACILITY ALLERGY/ADR -------- JYOTI HESS [facility] LISINOPRIL [place] [facility] [place] [facility] AT[facility]VASTATIN [place] [facility] LISINOPRIL Med. Reconciliation (Tool #1) INCLUDED [...] display of VA prescriptions dispensed from another [place] or [facility] facility (remote) is limited to active outpatient prescription entries matched to National Drug File at the originating site and may not include some items such as investigational drugs, compounds, etc. NOT INCLUDED IN THIS LIST: Medications self-entered by the patient into personal health records (i.e. [employer]) are NOT included in this list. Non-VA medications documented outside this [place], remote inpatient orders (regardless of status) and remote clinic medications are NOT included in this list. The patient and provider must always discuss medications the patient is taking, regardless of where the medication was dispensed or obtained. -------- OUTPT ALBUTEROL 90MCG (CFC-F) 200D ORAL INHL (Status = Discontinued) INHALE 2 PUFFS BY MOUTH FOUR TIMES DAILY NEEDED FOR BRONCHOSPASM Rx# [id number] Last Released: 11/12/23 Qty/Days Supply: Rx Expiration Date: 08/07/24 Refills Remainin Indication: FOR BRONCHOSPASM OUTPT ALBUTEROL 90MCG (CFC-F) 200D ORAL INHL (Status = Active) INHALE 2 PUFFS BY MOUTH FOUR TIMES DAILY NEEDED FOR BRONCHOSPASM Rx# [id number] Last Released: 06/26/24 Qty/Days Supply: Rx Expiration Date: 06/23/25 Refills Remainin Indication: FOR BRONCHOSPASM OUTPT BRIMONIDINE TARTRATE 0.2% OPH SOLN (Status = Discontinued) INSTILL 1 DROP INTO THE RIGHT EYE TWICE DAILY FOR GLAUCOMA Rx# [id number] Last Released: 01/03/24 Qty/Days Supply: Rx Expiration Date: 01/01/25 Refills Remainin Indication: FOR INCREASED PRESSURE IN THE EYE OUTPT BRIMONIDINE TARTRATE 0.2% OPH SOLN (Status = Active/Suspended) INSTILL 1 DROP INTO THE RIGHT EYE EVERY MORNING FOR INCREASED PRESSURE IN THE EYE FOR GLAUCOMA Rx# [id number] Last Released: Qty/Days Supply: Rx Expiration Date: 07/28/25 Refills Remainin Indication: FOR INCREASED PRESSURE IN THE EYE OUTPT CARBOXYMETHYLCELLULOSE NA 0.5% OPH SOLN (Status = Active/Suspended) INSTILL 1 DROP INTO EACH EYE FOUR TIMES A DAY FOR DRY EYE Rx# [id number] Last Released: 11/21/23 Qty/Days Supply: Rx Expiration Date: 11/14/24 Refills Remainin Indication: FOR DRY EYE OUTPT DABIGATRAN ETEXILATE 150MG ORAL CAP (Status = Active) TAKE ONE CAPSULE BY MOUTH TWICE DAILY TO PREVENT BLOOD CLOTS (ONCE OPENED, THE MEDICATION MUST BE USED WITHIN 4 MONTHS) Rx# [id number] Last Released: 11/12/23 Qty/Days Supply: 180 Rx Expiration Date: 08/13/24 Refills Remainin Indication: TO PREVENT BLOOD CLOTS OUTPT DILTIAZEM (EQV-CARDIZEM) 240MG 24HR CAP (Status = Discontinued) TAKE ONE CAPSULE BY MOUTH ONCE DAILY FOR ATRIAL FIBRILLATION Rx# [id number] Last Released: 06/07/24 Qty/Days Supply: Rx Expiration Date: 08/07/24 Refills Remainin Indication: FOR ATRIAL FIBRILLATION OUTPT DILTIAZEM (EQV-CARDIZEM) 240MG 24HR CAP (Status = Active/Suspended) TAKE ONE CAPSULE BY MOUTH ONCE DAILY FOR ATRIAL FIBRILLATION Rx# [id number] Last Released: Qty/Days Supply: Rx Expiration Date: 06/23/25 Refills Remainin Indication: FOR ATRIAL FIBRILLATION OUTPT EZETIMIBE 10MG TAB (Status = Discontinued) TAKE ONE TABLET BY MOUTH ONCE DAILY TO LOWER CHOLESTEROL Rx# [id number] Last Released: 01/27/24 Qty/Days Supply: Rx Expiration Date: 08/07/24 Refills Remainin Indication: FOR HIGH CHOLESTEROL OUTPT EZETIMIBE 10MG TAB (Status = Active) TAKE ONE TABLET BY MOUTH ONCE DAILY TO LOWER CHOLESTEROL Rx# [id number] Last Released: 06/24/24 Qty/Days Supply: Rx Expiration Date: 06/23/25 Refills Remainin Indication: FOR HIGH CHOLESTEROL OUTPT FENOFIBRATE 48MG TAB (Status = Active) TAKE ONE TABLET BY MOUTH ONCE DAILY FOR HIGH CHOLESTEROL Rx# [id number] Last Released: 07/19/24 Qty/Days Supply: Rx Expiration Date: 02/26/25 Refills Remainin Indication: FOR HIGH CHOLESTEROL OUTPT FUROSEMIDE 20MG TAB (Status = Discontinued) TAKE ONE TABLET BY MOUTH ONCE DAILY NEEDED FOR VISIBLE WATER RETENTION TO REMOVE FLUID/CONTROL BLOOD PRESSURE Rx# [id number] Last Released: 11/12/23 Qty/Days Supply: Rx Expiration Date: 08/08/24 Refills Remainin Indication: FOR VISIBLE WATER RETENTION OUTPT FUROSEMIDE 20MG TAB (Status = Active) TAKE ONE TABLET BY MOUTH ONCE DAILY NEEDED FOR VISIBLE WATER RETENTION TO REMOVE FLUID/CONTROL BLOOD PRESSURE Rx# [id number] Last Released: 06/24/24 Qty/Days Supply: Rx Expiration Date: 06/23/25 Refills Remainin Indication: FOR VISIBLE WATER RETENTION OUTPT LATANOPROST 0.005% OPH SOLN (Status = Active/Suspended) INSTILL 1 DROP INTO EACH EYE AT BEDTIME FOR INCREASED PRESSURE IN THE EYE Rx# [id number] Last Released: 11/19/23 Qty/Days Supply: 7. Rx Expiration Date: 11/14/24 Refills Remainin Indication: FOR INCREASED PRESSURE IN THE EYE OUTPT METOPROLOL SUCCINATE 50MG SA TAB (Status = Discontinued) TAKE ONE TABLET BY MOUTH ONCE DAILY FOR BLOOD PRESSURE/HEART Rx# [id number] Last Released: 11/12/23 Qty/Days Supply: Rx Expiration Date: 08/08/24 Refills Remainin Indication: FOR HIGH BLOOD PRESSURE OUTPT METOPROLOL SUCCINATE 50MG SA TAB (Status = Active) TAKE ONE TABLET BY MOUTH ONCE DAILY FOR BLOOD PRESSURE/HEART Rx# [id number] Last Released: 06/24/24 Qty/Days Supply: Rx Expiration Date: 06/23/25 Refills Remainin Indication: FOR HIGH BLOOD PRESSURE OUTPT OMEPRAZOLE 20MG EC CAP (Status = Discontinued) TAKE ONE CAPSULE BY MOUTH EVERY MORNING 30 MINUTES BEFORE BREAKFAST FOR GASTROESOPHAGEAL REFLUX DISEASE Rx# [id number] Last Released: 11/12/23 Qty/Days Supply: Rx Expiration Date: 08/08/24 Refills Remainin Indication: FOR GASTROESOPHAGEAL REFLUX DISEASE OUTPT OMEPRAZOLE 20MG EC CAP (Status = Active) TAKE ONE CAPSULE BY MOUTH EVERY MORNING 30 MINUTES BEFORE BREAKFAST FOR GASTROESOPHAGEAL REFLUX DISEASE Rx# [id number] Last Released: 06/24/24 Qty/Days Supply: Rx Expiration Date: 06/23/25 Refills Remainin Indication: FOR GASTROESOPHAGEAL REFLUX DISEASE OUTPT PRIMIDONE 50MG TAB (Status = Discontinued) TAKE ONE TABLET BY MOUTH ONCE DAILY FOR SIMPLE SEIZURE Rx# [id number] Last Released: 11/12/23 Qty/Days Supply: Rx Expiration Date: 08/08/24 Refills Remainin Indication: FOR SIMPLE SEIZURE OUTPT PRIMIDONE 50MG TAB (Status = Active) TAKE ONE TABLET BY MOUTH ONCE DAILY FOR SIMPLE SEIZURE Rx# [id number] Last Released: 06/24/24 Qty/Days Supply: Rx Expiration Date: 06/23/25 Refills Remainin Indication: FOR SIMPLE SEIZURE OUTPT QUETIAPINE FUMARATE 100MG TAB (Status = Discontinued) TAKE ONE TABLET BY MOUTH AT BEDTIME FOR MOOD AND PTSD Rx# [id number] Last Released: 04/28/24 Qty/Days Supply: Rx Expiration Date: 04/29/25 Refills Remainin Indication: FOR MOOD AND PTSD OUTPT QUETIAPINE FUMARATE 100MG TAB (Status = Active) TAKE ONE TABLET BY MOUTH AT BEDTIME FOR MOOD AND PTSD Rx# [id number] Last Released: 05/26/24 Qty/Days Supply: Rx Expiration Date: 05/27/25 Refills Remainin Indication: FOR MOOD AND PTSD OUTPT SERTRALINE HCL 100MG TAB (Status = Discontinued) TAKE ONE TABLET BY MOUTH ONCE DAILY FOR POSTTRAUMATIC STRESS SYNDROME Rx# [id number] Last Released: 11/12/23 Qty/Days Supply: Rx Expiration Date: 08/08/24 Refills Remainin Indication: FOR POSTTRAUMATIC STRESS SYNDROME OUTPT SERTRALINE HCL 100MG TAB (Status = Active) TAKE ONE TABLET BY MOUTH ONCE DAILY FOR POSTTRAUMATIC STRESS SYNDROME Rx# [id number] Last Released: 06/24/24 Qty/Days Supply: 90/90 Rx Expiration Date: 06/23/25 Refills Remainin Indication: FOR POSTTRAUMATIC STRESS SYNDROME OUTPT TRAZODONE HCL 100MG TAB (Status = Discontinued) TAKE TWO TABLETS BY MOUTH AT BEDTIME FOR INSOMNIA ASSOCIATED WITH DEPRESSION Rx# [id number] Last Released: 04/02/24 Qty/Days Supply: 180/90 Rx Expiration Date: 01/21/25 Refills Remainin Indication: FOR INSOMNIA ASSOCIATED WITH DEPRESSION -------- SUPPLIES -------- PHARMACY TERMS AND POSSIBLE PATIENT ACTIONS INPT = [place] inpatient order IV = [place] intravenous medication OUTPT = [place] outpatient prescription PHARMACY POSSIBLE PATIENT TERMS EXPLANATION ACTIONS -------- ACTIVE A prescription that can be If [...] prescription which is too old Contact your [place] to fill. This does not refer to [...] the VA. Or, it may be an [id number] (OTC), herbal, dietary supplements or sample medication. [...] before this medication now. you run out. == () Printed Medication Reconciliation List Offered and Declined by (x) Medication Reconciliation List Printed for at Exam () Optometry HT Please Print and Mail Copy of Medication Reconciliation List () AMSA Please Print and Mail Copy of Medication Reconciliation List /es/ HIMANSHU MILLER OD BRICKMASON Signed: 07/27/2024 11:55 HIMANSHU MILLER [place] [facility]
== END 2024-09-01 15:28 | disposition home or self-care (01) ==
LOC: HO.HPSW 14:49
PROVIDERS: PCP Hospitalist; Visit Provider Nurse Practitioner Family
DX: J44.9 Chronic obstructive pulmonary disease, unspecified (principal); G47.33 Obstructive sleep apnea (adult) (pediatric); R91.8 Other nonspecific abnormal finding of lung field
CPT/HCPCS: 99214

== ENCOUNTER → 2024-09-01 14:48 | Outpatient (BNVA) | payer OTHER, SELFPAY | PROVIDERS: PCP Hospitalist; Visit Provider Nurse Practitioner Family | DX: J44.9 Chronic obstructive pulmonary disease, unspecified (principal); G47.33 Obstructive sleep apnea (adult) (pediatric); R91.8 Other nonspecific abnormal finding of lung field | CPT/HCPCS: 99212 ==

== ENCOUNTER 2024-11-08 14:28 | Outpatient (AMB) | payer MEDICARE, OTHER, SELFPAY ==
--- NOTE | 2024-11-08 14:31 | MHC.PC.OV ---
Vital Signs 11/08/24 14:34 Height 5 ft 10 in Weight 188 lb 3 oz BMI 27.0 BP 138/64 Blood Pressure Location Rt brachial Position Sitting Respiration 14 Pulse 76 Pulse Source Pulse Oximeter Temp 97.8 F Temp Source Temporal Artery Scan Pulse Oximetry (%) 96 Oxygen Delivery Method Room Air Intake Visit Reasons: 30 min complex follow up, reschedule Intake Note: Nick presents in the office for a complex follow up. Allergies No Known Allergies Allergy (Verified 11/08/24 14:33) Medication List - Last Reconciled 11/08/24 by BETINA Salvador albuterol sulfate 90 mcg/actuation 2 puffs inhalation Q6H PRN barium sulfate 2.1%(w/v),2.0%(w/w) Follow instructions per radiology. dabigatran etexilate (Pradaxa) 150 mg PO BID diltiazem HCl ER 240 mg PO DAILY ezetimibe 10 mg PO DAILY fenofibrate nanocrystallized 48 mg PO DAILY xpzfjtcslrn-tsohufhfh-zzrqujsj 200-62.5-25 mcg (Trelegy Ellipta) 1 inh inhalation DAILY furosemide 20 mg PO DAILY PRN metoprolol succinate ER 50 mg PO DAILY omeprazole 20 mg PO DAILY primidone 50 mg PO ONCE quetiapine 150 mg PO BEDTIME sertraline 100 mg PO DAILY Tobacco use date assessed: 11/08/24 Fall risk assessment: 1 Fall in past year Last assessed Fall Risk: 11/08/24 Dental Screening Dental Screen Date: 11/08/24 Did you have a dental visit in the last 12 months?: Yes Did you have a dental problem in the last 6 months where you did not have access to dental care?: No Was dental information given to patient?: Patient has dentist HPI HPI Comments History of Present Illness Details This is an 79 year-old male with a past medical history significant for CKD stage 3, agent orange exposure, glaucoma, COPD with chronic respiratory failure requiring supplemental oxygen, depression with anxiety, hyperlipidemia, TIA, memory loss, paroxysmal atrial fibrillation, obstructive sleep apnea and periodic limb movement presenting for follow up. The patient is accompanied by his , Rosie Oliva. She is an excellent historian. He is a patient at [facility]. He was seen by [facility] and diagnosed with dementia, and he has a follow up in December to review results of testing to determine what type of dementia it is. Cardiovascular-diagnosed in 2016 with paroxysmal atrial fibrillation. He had 2 ablations. The 2nd was successful. He saw Cardiology in August, and he is thinking about whether or not to proceed with a Watchman procedure. Denies palpitations or chest pain. He had a TIA in ?2017. Depression with anxiety-followed by Dr. Peñaloza. Tremor-taking primidone. Patient is up-to-date with eye exams. He sees audiology for hearing loss. COPD/AMY-followed by [facility] pulmonology. Patient having sleep study done. Using supplemental oxygen at night. 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 Patient endorses intermittent episodes of right lower quadrant pain since August 2024. notes they were on vacation in August, and he did not feel well enough to go do anything. He has vomited bile a couple of times. It happens sporadically. Describes the pain as sharp lasting a day or a few hours sometimes. A family member who is an RN pressed on his abdomen, and he jumped. Denies trauma. Denies diarrhea, constipation, blood in stools, night sweats, unexplained weight loss. Endorses intermittent nausea and decreased appetite. Vomited bile a couple weeks ago.This is happening spoadically. No fever, but he had chills the other night. This resolved. ROS: Constitutional: No unexplained weight loss, feveror night sweats or increase fatigue Respiratory: No increased shortness of breath or worsening cough Cardiovascular: No chest pain, chest pressure or chest discomfort. No palpitations . Gastrointestinal: See HPI Neurologic: No seizures, tremor, numbness, headache. No dizziness, no syncope. Hematologic/Lymphatics: No bleeding or swollen glands Psychiatric: No SI/HI. Physical exam: Constitutional: Alert, in no distress. Head: Normocephalic. Eyes: Pupils are equal, round and reactive to light. Extraocular muscles intact. Neck: Supple, Full range of motion. No lymphadenopathy. Respiratory: Clear to auscultation. Cardiovascular: Irregularly irregular rhythm. Normal rate.. No murmurs. : No CVA tenderness Abdomen: Bowel sounds normal in 4 quadrants. Soft, no palpable organomegaly or masses. No rebound or guarding. Moderate tenderness of the right lower quadrant. Small, reducible umbilical hernia. Neurologic: Moves extremities spontaneously. No focal deficits. Extremities: Warm and well perfused. No lower extremity edema. Psychiatric: Normal mood and affect [facility] Medical History (Updated 11/08/24 @ 15:14 by BETINA Salvador) Dementia RLQ abdominal pain Hypertension Falls frequently Closed rib fracture Cognitive decline CKD stage 3a, GFR 45-59 ml/min Glaucoma GERD (gastroesophageal reflux disease) Agent orange exposure Bilateral hearing loss COPD (chronic obstructive pulmonary disease) Periodic limb movement Nocturnal hypoxemia Depression with anxiety TIA (transient ischemic attack) Neoplasm of skin Skin rash Memory loss Imbalance A-fib Hypercholesteremia Family History Mother Breast cancer Cardiovascular disease Social History (Updated 11/08/24 @ 14:34 by Katelin Lovelace MA) Housing: House Alcohol intake: current Patient Tobacco Use Status: Former Tobacco user Cigarette Packs Per Day: 1 Years Smoked: 40 e-Cigarette/Vaping Use: Never Used Second Hand Smoke Exposure: No service: Yes Current occupational status: retired Current occupational exposures/hazards: No Cognitive needs: No Hearing needs: Yes (Hearing loss) Vision needs: No Questionnaire Thrive Questionnaire Date Thrive assessed: 05/10/24 I am a: Patient What is your living situation today?: I have a steady place to live Within the past 12 months, did the food you bought not last and you didn't have the money to get more?: Never true Within the past 12 months, did you worry whether your food would run out before you got money to buy more?: Never true Do you have trouble paying for medicines?: No Do you have trouble getting transportation to medical appointments?: No Do you have trouble paying your heating and electricity bill?: No Do you have trouble taking care of your child, family member or friend?: No Do you have trouble with day-to-day activities such as bathing, preparing meals, shopping, managing finances, etc.?: No Are you currently unemployed and looking for a job?: No Are you interested in more education?: No Please select the resources that you would like help with: None Currently or been in a relationship where the following occur: No concerns reported THRIVE Score: 0 FAYE-7 AMB Questionnaire FAYE-7 Date FAYE - 7 assessed: 05/13/24 Source: Developed by Drs. Sherif Thomson, Tomasa Baker, Ishmael Alas and colleagues, with an educational aftab from [employer]. Physical exam (Primary Care) Vital Signs: Last Vital Signs Temp 97.8 F 11/08/24 14:34 Pulse 76 11/08/24 14:34 Resp 14 11/08/24 14:34 BP 138/64 11/08/24 14:34 Pulse Ox 96 11/08/24 14:34 Oxygen Delivery Method Room Air 11/08/24 14:34 BMI result Body Mass Index 27.0 Tobacco/Smoking Status: Tobacco use Status Tobacco use date assessed 11/08/24 11/08/24 14:38 Patient Tobacco Use Status Former Tobacco user 11/08/24 14:34 e-Cigarette/Vaping Use Never Used 11/08/24 14:34 Thrive Assessment: Date of Thrive Assessment Date Thrive assessed 05/10/24 11/08/24 14:33 Currently or been in a relationship where the following occur: No concerns reported Coding Level of Care Code Est Pt Level 4 (67809) Complex EM visit Add On G2211 Diagnoses Cognitive decline R41.89 Depression with anxiety F41.8 Paroxysmal atrial fibrillation I48.0 Atrial fibrillation type: paroxysmal COPD (chronic obstructive pulmonary disease) J44.9 Chronic bronchitis type: unspecified Obstructive sleep apnea G47.33 Hypertension I10 Dementia F03.90 RLQ abdominal pain R10.31 Assessment & Plan Assessment & Plan (1) Cognitive decline: Code(s): R41.89 - Other symptoms and signs involving cognitive functions and awareness Category: Medical (2) Depression with anxiety: Code(s): F41.8 - Other specified anxiety disorders Category: Medical (3) A-fib: Code(s): I48.91 - Unspecified atrial fibrillation Category: Medical Qualifiers: Atrial fibrillation type: paroxysmal Qualified Code(s): I48.0 - Paroxysmal atrial fibrillation (4) COPD (chronic obstructive pulmonary disease): Code(s): J44.9 - Chronic obstructive pulmonary disease, unspecified Category: Medical Qualifiers: Chronic bronchitis type: unspecified (5) Obstructive sleep apnea: Code(s): G47.33 - Obstructive sleep apnea (adult) (pediatric) Category: Medical (6) Hypertension: Code(s): I10 - Essential (primary) hypertension Category: Medical (7) Dementia: Code(s): F03.90 - Unspecified dementia, unspecified severity, without behavioral disturbance, psychotic disturbance, mood disturbance, and anxiety Category: Medical (8) RLQ abdominal pain: Code(s): R10.31 - Right lower quadrant pain Category: Medical Plan The patient will continue his current medications. He has a follow up scheduled with Neurology. He was told he does not have to follow back up with Cardiology unless he wants to proceed with the Watchman procedure which he is considering. Check UA, culture, labs for right lower quadrant abdominal pain today. Currently afebrile. Appears comfortable. Nonsurgical abdomen. Acute cholecystitis, pancreatitis, appendicitis, AAA rupture, bowel obstruction, mesenteric ischemia unlikely at this time. Warning signs warranting evaluation at the emergency department reviewed. Given moderate tenderness on exam we will proceed with CAT scan of the abdomen and pelvis with contrast. Follow up in 6 weeks for abdominal pain. Orders: Orders Complete Blood Count Auto Diff Today R10.31 - Right lower quadrant pain UA w Microscopic Today R10.31 - Right lower quadrant pain, R39.9 - Unspecified symptoms and signs involving the genitourinary system Urine Culture Today R10.31 - Right lower quadrant pain, R39.9 - Unspecified symptoms and signs involving the genitourinary system CT abdomen pelvis w IV con Today R10.31 - Right lower quadrant pain Comprehensive Met. Panel Today R10.31 - Right lower quadrant pain Lipase Today R10.31 - Right lower quadrant pain Amylase Today R10.31 - Right lower quadrant pain Medications: New barium sulfate 2.1%(w/v),2.0%(w/w) Follow instructions per radiology. 900 mL 0RF
[2024-11-08 14:34] VITALS: BP 138/64; PULSE 76; RESP 14; TEMP 36.6; O2SAT 96; BMI 27.0
--- OUTSIDE RECORDS SUMMARY | 2024-11-08 15:10 | XMS_ITS | Referral Summary ---
Author Organization [facility] Address [address] [place] [address] Care Team Providers Care Surveillance Operator Name Role Phone Betzaida Roberson Primary Care Provider [phone] Allergies No known active allergies Medications albuterol [...] file Plan of Treatment Not on file Insurance MEDICARE [facility] Care Teams Surveillance Operator Relationship Specialty Start Date End Date Betziada Roberson [address] [place] [address] PCP - General Family Medicine 12/26/23
== END 2024-11-08 15:09 | disposition home or self-care (01) ==
LOC: HO.HMCFM 14:29
PROVIDERS: PCP Internal Medicine; Visit Provider Physician Assistant Medical
DX: R41.89 Other symptoms and signs involving cognitive functions and awareness (principal); F41.8 Other specified anxiety disorders; I48.0 Paroxysmal atrial fibrillation; J44.9 Chronic obstructive pulmonary disease, unspecified; G47.33 Obstructive sleep apnea (adult) (pediatric); I10 Essential (primary) hypertension; F03.90 Unspecified dementia, unspecified severity, without behavioral disturbance, psychotic disturbance, mood disturbance, and anxiety; R10.31 Right lower quadrant pain

== ENCOUNTER → 2024-11-08 14:28 | Outpatient (BNVA) | payer MEDICARE, OTHER, SELFPAY | PROVIDERS: PCP Internal Medicine; Visit Provider Physician Assistant Medical | DX: R41.89 Other symptoms and signs involving cognitive functions and awareness (principal); F41.8 Other specified anxiety disorders; I48.0 Paroxysmal atrial fibrillation; J44.9 Chronic obstructive pulmonary disease, unspecified; J96.10 Chronic respiratory failure, unspecified whether with hypoxia or hypercapnia; G47.33 Obstructive sleep apnea (adult) (pediatric); I12.9 Hypertensive chronic kidney disease with stage 1 through stage 4 chronic kidney disease, or unspecified chronic kidney disease; N18.30 Chronic kidney disease, stage 3 unspecified; F03.90 Unspecified dementia, unspecified severity, without behavioral disturbance, psychotic disturbance, mood disturbance, and anxiety; R10.31 Right lower quadrant pain; L92.0 Granuloma annulare; Z86.73 Personal history of transient ischemic attack (TIA), and cerebral infarction without residual deficits; Z99.81 Dependence on supplemental oxygen | CPT/HCPCS: 99212 ==

== ENCOUNTER 2024-11-08 15:22 | Outpatient (REF) | payer MEDICARE, OTHER, SELFPAY ==
[2024-11-08 17:36] LABS: MANUAL DIFF FLAG NO
[2024-11-08 17:39] LABS: Hematocrit 47.1 % (42.0-52.0); Hemoglobin 15.7 g/dl (14.0-18.0); Imm Gran Abs Auto 0.03 X10*3/uL (0.00-0.03); Imm Gran Pct Auto 0.4 % (0.0-0.4); Lymphocytes Absolute Auto 2.1 X10*3/uL (1.2-4.9); Mean Corpuscular HGB Conc 33.3 g/dl (31.0-36.0); Mean Corpuscular Hemoglobin 31.5 pg (27.0-33.0); Mean Corpuscular Volume 94.4 fL (80.0-98.0); NRBC Abs Auto 0.000 X10*3/uL (0.0-0.012); NRBC Pct Auto 0.0 /100WBC (0.0-0.2); Platelet Count 283 X10*3/uL (160-400); Red Blood Count 4.99 X10*6/uL (4.60-5.80); White Blood Count 7.4 X10*3/uL (4.8-10.8)
[2024-11-08 17:40] LABS: Appearance Urine Clear; Glucose Urine UA Negative (Negative); PH 5.5 (5.0-9.0); Specific Gravity - Urine >= 1.030 (1.005-1.025); UMIC TRIGGER UA YES
[2024-11-08 18:16] LABS: Alanine Aminotransferase 25 U/L (0-40); Albumin Level 4.3 g/dL (3.5-5.0); Alkaline Phosphatase 77 U/L (39-117); Amylase 32 U/L (28-100); Anion Gap 11 (12-20); Aspartate Amino Transferase 19 U/L (5-37); Blood Urea Nitrogen 16 mg/dL (9-16); Calcium 8.8 mg/dL (8.4-10.2); Carbon Dioxide 28 mmol/L (22-29); Chloride 105 mmol/L (96-108); Cholesterol 221 mg/dL (<200); Estimated Glomerular Filt Rate 36; HDL Cholesterol 50 mg/dL (>40); Lipase 20 U/L (8-78); Potassium 4.4 mmol/L (3.3-5.1); Sodium 140 mmol/L (135-145); Total Protein 7.5 g/dL (6.5-8.0); Triglycerides 243 mg/dL (<150)
[2024-11-09 05:22] LABS: Hemoglobin A1C 164.7868 umol/L; Total Hemoglobin (HGBA1C) 3989.5633 umol/L
== END 2024-11-08 15:23 | disposition home or self-care (01) ==
LOC: HO.WFDLDS 15:22
PROVIDERS: Visit Provider Physician Assistant Medical
DX: I12.9 Hypertensive chronic kidney disease with stage 1 through stage 4 chronic kidney disease, or unspecified chronic kidney disease (principal); N18.31 Chronic kidney disease, stage 3a; E78.00 Pure hypercholesterolemia, unspecified; R41.89 Other symptoms and signs involving cognitive functions and awareness; R10.31 Right lower quadrant pain; R39.9 Unspecified symptoms and signs involving the genitourinary system
CPT/HCPCS: 36415; 80053; 80061; 81001; 82150; 83036; 83690; 84443; 85025; 87086

== ENCOUNTER 2024-11-18 13:22 | Outpatient (AMB) | payer MEDICARE, OTHER, SELFPAY ==
--- OUTSIDE RECORDS SUMMARY | 2024-11-18 13:25 | XMS_ITS | Referral Summary ---
Author Organization [facility] Address [address] [place] [address] Care Team Providers Care Redrying Machine Operator Name Role Phone Betzaida Roberson Primary Care Provider [phone] Allergies No known active allergies Medications albuterol [...] of Treatment Not on file Insurance MEDICARE [facility] Care Teams Redrying Machine Operator Relationship Specialty Start Date End Date Betzaida Roberson [address] [place] [address] PCP - General Family Medicine 12/26/23
--- NOTE | 2024-11-18 13:33 | HO.NEPHOV ---
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 here with Taty, Hypertension: Since 10 years , on diltiazem 240 mg, metoprolol ER 50 mg under Lasix Atrial fibrillation: Currently rate controlled on diltiazem and metoprolol, dabigatran for anticoagulation Neuro: On multiple psych meds including statin, quetiapine, primidone Did not see any marketing automation analyst in the past, was not told to have any kidney diseases in the past. [facility] Medical History (Updated 11/08/24 @ 15:14 by BETINA Salvador) Dementia RLQ abdominal pain Hypertension Falls frequently Closed rib fracture Cognitive decline CKD stage 3a, GFR 45-59 ml/min Glaucoma GERD (gastroesophageal reflux disease) Agent orange exposure Bilateral hearing loss COPD (chronic obstructive pulmonary disease) Periodic limb movement Nocturnal hypoxemia Depression with anxiety TIA (transient ischemic attack) Neoplasm of skin Skin rash Memory loss Imbalance A-fib Hypercholesteremia Family History Mother Breast cancer Cardiovascular disease Social History Housing: House Alcohol intake: current Patient Tobacco Use Status: Former Tobacco user Cigarette Packs Per Day: 1 Years Smoked: 40 e-Cigarette/Vaping Use: Never Used Second Hand Smoke Exposure: No service: Yes Current occupational status: retired Current occupational exposures/hazards: No Cognitive needs: No Hearing needs: Yes (Hearing loss) Vision needs: No Review of Systems Const Details: Const : no body aches, no chills, no excessive sweating and no fatigue Eyes: no blurry vision and no change in vision ENT: no bleeding gums and no change in voice, no dizziness Card: no chest pain, no shortness of breath, no orthopnea, no PND Resp: no cough, no excessive phlegm production, no SOB GI: +abdominal pain right lower quadrant,and no nausea, no vomiting : no hematuria, no urinary frequency and no difficulty voiding Musc: no abnormal gait, no bone pain Neuro: no abnormal movements, no weakness, no dizziness, no abnormal gait and no behavioral changes Psych: no behavioral changes and no change in appetite Endo: no change in body appearance, no cold intolerance, no excessive sweating and no fatigue Physical Exam General: Pleasant elderly male comfortably sitting on the bed Nutritional Appearance: well nourished and overweight Eyes: normal position, no icterus Neck: No lymphadenopathy, no thyromegaly Resp: bilateral air entry equal, occasional crackles heard in the bases- no PND/orthopnea Cardio: normal S1, S2 heard, no murmur heard, no edema GI: soft, nontender, no guarding, no hepatosplenomegaly : bladder normal to inspection, bladder normal to palpation, no renal angle tenderness Skin: no rashes or lesions noted and elasticity normal Neuro: oriented to person, oriented to place, oriented to time and moves all extremities Results Reviewed Nephrology Results: Hgb, (14.0-18.0) 15.7 g/dl 11/08/24 WBC, (4.8-10.8) 7.4 X10*3/uL 11/08/24 Plt Count, (160-400) 283 X10*3/uL 11/08/24 Sodium, (135-145) 140 mmol/L 11/08/24 Potassium, (3.3-5.1) 4.4 mmol/L 11/08/24 Chloride, (96-108) 105 mmol/L 11/08/24 Carbon Dioxide, (22-29) 28 mmol/L 11/08/24 BUN, (9-16) 16 mg/dL 11/08/24 Creatinine, (0.5-1.4) 1.81 mg/dL H 11/08/24 Calcium, (8.4-10.2) 8.8 mg/dL 11/08/24 Urine Protein, (Neg-Trace) Trace mg/dL 11/08/24 Assessment & Plan Assessment & Plan (1) Depression with anxiety: Code(s): F41.8 - Other specified anxiety disorders Category: Medical (2) Hypertension: Code(s): I10 - Essential (primary) hypertension Category: Medical (3) CKD stage 3a, GFR 45-59 ml/min: Code(s): N18.31 - Chronic kidney disease, stage 3a Category: Medical (4) TIA (transient ischemic attack): Code(s): G45.9 - Transient cerebral ischemic attack, unspecified Category: Medical Plan: (5) COPD (chronic obstructive pulmonary disease): Code(s): J44.9 - Chronic obstructive pulmonary disease, unspecified Category: Medical Qualifiers: Chronic bronchitis type: unspecified Plan Chronic kidney disease stage IIIb: Possibly secondary to atherosclerotic vascular disease from longstanding hypertension - no family history of CKD, no history of renal stones in the past, NSAID use. - creatinine 1.81 , GFR 36 - will get urine microalbumin creatinine ratio, UPCR - Urinalysis shows no significant since, trace protein - Renal ultrasound planned on December 07 - avoid nephrotoxic medications not limited to NSAIDs, contrast etc. - importance of diet, weight loss, adequate blood pressure control, stop smoking well explained to patient - will get hepatitis panel, HIV, NEETA, ANCA, complements, SPEP, UPEP, serum free light chains, PLA2R Hypertension: - target blood pressures less than 130/90 mm Hg - compliance: good. - continue diltiazem 240, metoprolol ER 50 Mineral bone disease: - will get calcium, phos, vitamin-D and PTH levels This note is constructed using voice recognition software. While every effort has been made to ensure accuracy equipment installation professional errors may have been included. Total time spent in the clinic is about 40 minutes, 10 minutes on chart review, review of data, 20 minutes on encounter, physical examination, counseling, answer Orders: Orders Microalbumin, Random (w Creat) 3 Months I10 - Essential (primary) hypertension, N18.31 - Chronic kidney disease, stage 3a Total Protein Urine Random 3 Months I10 - Essential (primary) hypertension, N18.31 - Chronic kidney disease, stage 3a Complete Blood Count no Diff 3 Months I10 - Essential (primary) hypertension, N18.31 - Chronic kidney disease, stage 3a Basic Metabolic Panel Today N18.31 - Chronic kidney disease, stage 3a UA and rflx microscopic Today N18.31 - Chronic kidney disease, stage 3a Total Protein Urine Random Today N18.31 - Chronic kidney disease, stage 3a Parathyroid Hormone Intact Today N18.31 - Chronic kidney disease, stage 3a Vitamin D 25-OH Total Today N18.31 - Chronic kidney disease, stage 3a Hepatitis B,C Profile Today N18.31 - Chronic kidney disease, stage 3a HIV Ab/Ag Today N18.31 - Chronic kidney disease, stage 3a Complement C4 Today N18.31 - Chronic kidney disease, stage 3a [place]/Lambda Light Chain Serum Today N18.31 - Chronic kidney disease, stage 3a Basic Metabolic Panel 3 Months I10 - Essential (primary) hypertension, N18.31 - Chronic kidney disease, stage 3a UA and rflx microscopic 3 Months I10 - Essential (primary) hypertension, N18.31 - Chronic kidney disease, stage 3a Creatinine Urine 3 Months I10 - Essential (primary) hypertension, N18.31 - Chronic kidney disease, stage 3a Phosphorus 3 Months I10 - Essential (primary) hypertension, N18.31 - Chronic kidney disease, stage 3a Microalbumin, Random (w Creat) Today N18.31 - Chronic kidney disease, stage 3a Complete Blood Count no Diff Today N18.31 - Chronic kidney disease, stage 3a Creatinine Urine Today N18.31 - Chronic kidney disease, stage 3a Phosphorus Today N18.31 - Chronic kidney disease, stage 3a NEETA Reflex Titer and Pattern Today N18.31 - Chronic kidney disease, stage 3a ANCA Vasculitides Today N18.31 - Chronic kidney disease, stage 3a Complement C3 Today N18.31 - Chronic kidney disease, stage 3a Protein Electrophoresis, Serum Today N18.31 - Chronic kidney disease, stage 3a Protein Electrophoresis,Ran Ur Today N18.31 - Chronic kidney disease, stage 3a Uric Acid Today N18.31 - Chronic kidney disease, stage 3a Coding Level of Care Code New Pt Level 4 (95535) Diagnoses Depression with anxiety F41.8 Hypertension I10 CKD stage 3a, GFR 45-59 ml/min N18.31 TIA (transient ischemic attack) G45.9 COPD (chronic obstructive pulmonary disease) J44.9 Chronic bronchitis type: unspecified
[2024-11-18 13:39] VITALS: BP 128/70; PULSE 76; O2SAT 97; BMI 28.1
== END 2024-11-18 14:09 | disposition home or self-care (01) ==
LOC: HO.HKAS 13:23
PROVIDERS: PCP Internal Medicine; Visit Provider Internal Medicine Critical Care Medicine
DX: F41.8 Other specified anxiety disorders (principal); I10 Essential (primary) hypertension; N18.31 Chronic kidney disease, stage 3a; G45.9 Transient cerebral ischemic attack, unspecified; J44.9 Chronic obstructive pulmonary disease, unspecified
CPT/HCPCS: 99204

== ENCOUNTER 2024-11-18 13:22 | Outpatient (REF) | payer MEDICARE, OTHER, SELFPAY ==
[2024-11-18 17:55] LABS: Hematocrit 44.3 % (42.0-52.0); Hemoglobin 14.7 g/dl (14.0-18.0); Mean Corpuscular HGB Conc 33.2 g/dl (31.0-36.0); Mean Corpuscular Hemoglobin 31.2 pg (27.0-33.0); Mean Corpuscular Volume 94.1 fL (80.0-98.0); NRBC Abs Auto 0.000 X10*3/uL (0.0-0.012); NRBC Pct Auto 0.0 /100WBC (0.0-0.2); Platelet Count 248 X10*3/uL (160-400); Red Blood Count 4.71 X10*6/uL (4.60-5.80); White Blood Count 6.9 X10*3/uL (4.8-10.8)
[2024-11-18 18:11] LABS: Appearance Urine Clear; Glucose Urine UA Negative (Negative); PH 5.5 (5.0-9.0); Specific Gravity - Urine 1.020 (1.005-1.025); UMIC TRIGGER UA YES
[2024-11-18 18:22] LABS: Microalbum/Creatinine Ratio Ur 5.4 ug/mg cr (<30); Total Protein Urine Random 16 mg/dL (<12)
[2024-11-18 18:25] LABS: Anion Gap 12 (12-20); Blood Urea Nitrogen 11 mg/dL (9-16); Calcium 8.7 mg/dL (8.4-10.2); Carbon Dioxide 26 mmol/L (22-29); Chloride 104 mmol/L (96-108); Estimated Glomerular Filt Rate 52; Potassium 4.4 mmol/L (3.3-5.1); Sodium 138 mmol/L (135-145); Uric Acid 5.9 mg/dL (3.4-7.0)
[2024-11-18 18:33] LABS: Parathyroid Hormone Intact 41.8 pg/mL (8.7-77.1)
[2024-11-19 08:16] LABS: HBS Num1 214.99 mIU/mL (0-7.99); HBc Num1 0.05 S/CO (0.00-0.79); HBsAGNum1 0.53 S/CO (0.00-0.99); HIV Num 1 0.06 S/CO (0.00-0.99); Hepatitis B Surface Antigen Negative (Negative); ~HepC Num1 0.18 S/CO (0.00-0.79); ~Hepatitis B Surface Antibody REACTIVE (Nonreactive); ~Hepatitis C Antibody Nonreactive (Nonreactive)
[2024-11-19 22:17] LABS: Prot Elec - Albumin 3.8 g/dL (3.8-4.8); Prot Elec - Alpha1 0.3 g/dL (0.2-0.3); Prot Elec - Alpha2 0.6 g/dL (0.5-0.9); Prot Elec - Beta 1 0.5 g/dL (0.4-0.6); Prot Elec - Beta 2 0.5 g/dL (0.2-0.5); Prot Elec - Gamma 1.0 g/dL (0.8-1.7); Prot Elec - Total Protein 6.7 g/dL (6.1-8.1); Proteinase 3 PR3 Antibodies <1.0 AI
[2024-11-23 10:14] LABS: PEU-Protein Creat Ratio Rand 0.061 (0.025-0.148); PEU-Rand. Prot/Creat Ratio 61 mg/g creat (25-148); PEU-Random Ur. Gamma Globulin 0 %; PEU-Random Urine A1 Globulin 0 %; PEU-Random Urine A2 Globulin 0 %; PEU-Random Urine Albumin 100 %; PEU-Random Urine Beta Globulin 0 %; PEU-Random Urine Creatinine 228 mg/dL (20-320); PEU-Random Urine Protein 14 mg/dL (5-25)
[2024-11-23 16:04] LABS: Kappa, Serum 301 mg/dL (176-443); Kappa/Lambda Ratio, Serum 1.72 (1.29-2.55); Lambda, Serum 175 mg/dL (91-240)
[2024-11-24 07:13] LABS: Anti Nuclear Antibody Pattern Nuclear, Speckled; Anti Nuclear Antibody Screen POSITIVE (NEGATIVE); Anti Nuclear Antibody Titer 1:40 titer
== END 2024-11-18 13:23 | disposition home or self-care (01) ==
LOC: HO.HKASLDS 13:22
PROVIDERS: PCP Internal Medicine; Visit Provider Internal Medicine Critical Care Medicine
DX: I12.9 Hypertensive chronic kidney disease with stage 1 through stage 4 chronic kidney disease, or unspecified chronic kidney disease (principal); N18.31 Chronic kidney disease, stage 3a; F41.8 Other specified anxiety disorders; J44.9 Chronic obstructive pulmonary disease, unspecified; G45.9 Transient cerebral ischemic attack, unspecified; Z79.899 Other long term (current) drug therapy
CPT/HCPCS: 80048; 81001; 82043; 82306; 82570; 83883; 83970; 84100; 84156; 84165; 84166; 84550; 85027; 86021; 86038; 86039; 86160; 86704; 86706; 86803; 87340; 87389; 99202

== ENCOUNTER 2025-01-14 16:03 | Outpatient (REF) | payer MEDICARE, OTHER, SELFPAY ==
--- NOTE | ~2025-01-14 | CT_ITS ---
EXAMINATION: CT CHEST WITHOUT CONTRAST CLINICAL INFORMATION: R91.8 - Other nonspecific abnormal finding of lung field COMPARISON: 01/09/2024 TECHNIQUE: Multidetector volumetric CT imaging of the chest was done. Axial MIP volume rendering provided. Sagittal and coronal reformatted images were obtained. This CT examination was performed using dose optimization techniques as appropriate, variously including the following: *Automated exposure control *Adjustment of mA and/or kV according to patient size (this includes techniques or standardized protocols for targeted exams where dose is matched to indication/reason for exam; i.e. extremities or head) *Use of iterative reconstruction technique FINDINGS: LUNGS: A few small 1-3 mm pulmonary nodules present on the prior examination are stable. New small lenticular shaped nodules are present along the upper right major fissure consistent with intrapulmonary lymph nodes. Perivascular thickening in the posterior right apex is similar to the prior. Mild coarse markings are also seen in the anterior left apex, similar to the prior. MEDIASTINUM: The mediastinum is normal. CORONARY ARTERY CALCIFICATION: Dense PLEURA: There is mild thickening of the major fissure on the right with the apex. AXILLA: No lymphadenopathy. UPPER ABDOMEN: Low attenuating lesion in the medial hepatic segment is stable, likely cyst or hemangioma. OSSEOUS STRUCTURES: There are mild degenerative changes in the thoracic spine CT/CT chest wo IV con IMPRESSION: Stable small pulmonary nodules requiring no further follow-up. There is mild thickening of the upper portion of the right major thick fissure probably related to mild chronic interstitial changes in the posterior right apex. Fleischner guidelines were followed. Electronically signed by: Isael Quiñonez MD 01/14/2025 04:57 PM EDT
--- OUTSIDE RECORDS SUMMARY | 2025-01-14 16:06 | XMS_ITS | Clinical Summary ---
Author Organization [facility] Address [address] [place] [address] Care Team Providers Care Technical Designer Name Role Phone Betzaida Roberson Primary Care Provider [phone] Allergies No known active allergies Medications albuterol [...] 2024 02/26/2024, 03/02/2021, 02/20/2021, Additional history exists Influenza Vaccine (#1) 2024 , 03/25/2023, 02/27/2022, Additional history exists DTaP,Tdap,and Td Vaccines (3 - Td or Tdap) 08/08/2026 08/08/2016, 12/14/2014, 12/22/2008 Pneumococcal Vaccine: 50+ Years Completed 07/04/2014, 01/10/2009 Zoster Vaccines Completed 12/13/2020, 09/14, 12/28/2014 RSV Vaccine (60+ years old and patients) Completed 03/25/2023 Hepatitis B Vaccines Aged Out No long er eligible based on patient's age to complete this topic Insurance MEDICARE [facility] Care Teams Technical Designer Relationship Specialty Start Date End Date Betzaida Roberson [address] [place] [id number] PCP - General Family Medicine 12/26/23
== END 2025-01-14 16:04 | disposition home or self-care (01) ==
LOC: HO.CT 16:03
PROVIDERS: PCP Physician Assistant Medical; Visit Provider Nurse Practitioner Family
DX: R91.8 Other nonspecific abnormal finding of lung field (principal)
CPT/HCPCS: 71250

== ENCOUNTER → 2025-01-14 16:17 | Outpatient (BNV) | payer MEDICARE, OTHER, SELFPAY | PROVIDERS: PCP Physician Assistant Medical; Visit Provider Radiology Diagnostic Radiology | DX: R91.8 Other nonspecific abnormal finding of lung field (principal) | CPT/HCPCS: 71250 ==

== ENCOUNTER 2025-02-15 09:58 | Outpatient (AMB) | payer MEDICARE, OTHER, SELFPAY ==
--- NOTE | 2025-02-15 10:04 | A.OFFVIS_ITS ---
Vital Signs 02/15/25 10:05 Height 5 ft 10 in Weight 197 lb BMI 28.3 BP 128/60 Blood Pressure Location Lt brachial Position Sitting Pulse 43 L Pulse Source Pulse Oximeter Pulse Oximetry (%) 96 Oxygen Delivery Method Room Air Intake Visit Reasons: CT scan F/U Allergies atorvastatin Adverse Reaction (Verified 02/15/25 10:07) myalgias HPI HPI CT scan F/U: Details: Nick is a pleasant 79 year old male, former 30 pack year smoker, quit 30+ years ago, with underlying asthma, COPD, CAD, Atrial fibrillation s/p ablation x 2 on pradaxa, AMY on CPAP ,GERD and recently diagnosed with Alzheimer's disease under the care of Neurology. He is accompanied by his . He reports moderate control of respiratory symptoms on Trelegy 200 mcg, using albuterol MDI infrequently. Continues with intermittent wheezing, mostly at night. He does not use albuterol MDI when this occurs. He checks oxygen saturation frequently, never below 95%. Previously 6MWT performed and patient does not require supplemental oxygen with exertion. He also is supposed to be taking lasix PRN however has not had any in quite some time. He has been using CPAP nightly with good effect, managed through [facility]. DME is [facility]. In lab sleep study revealed severe sleep apnea without significant nocturnal hypoxemia. He denies any visits to urgent care hospitalizations related to respiratory distress since last visit. [facility] Medical History (Updated 11/08/24 @ 15:14 by BETINA Salvador) Dementia RLQ abdominal pain Hypertension Falls frequently Closed rib fracture Cognitive decline CKD stage 3a, GFR 45-59 ml/min Glaucoma GERD (gastroesophageal reflux disease) Agent orange exposure Bilateral hearing loss COPD (chronic obstructive pulmonary disease) Periodic limb movement Nocturnal hypoxemia Depression with anxiety TIA (transient ischemic attack) Neoplasm of skin Skin rash Memory loss Imbalance A-fib Hypercholesteremia Family History Mother Breast cancer Cardiovascular disease Social History Housing: House Alcohol intake: current Patient Tobacco Use Status: Former Tobacco user Cigarette Packs Per Day: 1 Years Smoked: 40 e-Cigarette/Vaping Use: Never Used Second Hand Smoke Exposure: No service: Yes Current occupational status: retired Current occupational exposures/hazards: No Cognitive needs: No Hearing needs: Yes (Hearing loss) Vision needs: No Review of Systems Const Denies chills, Denies excessive sweating, Denies fever(s), Denies headache(s) and Denies night sweats Eyes Denies dry eyes, Denies irritation and Denies itchy eyes ENT Reports Normal hearing present, Denies headache(s), Denies nasal congestion, Denies nasal discharge, Denies post nasal drip and Denies sore throat Card Denies chest pain, Denies chest pain at rest, Denies chest pain with activity, Denies claudication, Denies leg edema, Denies orthopnea and Denies paroxysmal nocturnal dyspnea Resp Denies chest congestion, Denies cough, Denies excessive phlegm production, Denies pain on inspiration, Denies pain with cough and Denies stridor Musc Denies myalgias Neuro Reports Normal hearing present and Denies headache(s) Endo Denies excessive sweating Sedrick/Lymph Denies lymphadenopathy Aller/Immun Denies itchy eyes and Denies seasonal rhinorrhea Physical Exam Vital Signs: Last Vital Signs Pulse 43 L 02/15/25 10:05 BP 128/60 02/15/25 10:05 Pulse Ox 96 02/15/25 10:05 Oxygen Delivery Method Room Air 02/15/25 10:05 BMI result Body Mass Index 28.3 Const General: cooperative, healthy appearing, comfortable, no acute distress, well developed and alert Nutritional Appearance: obese Orientation/consciousness: patient oriented x3 Limitations: no limitations HEENT Head: Yes normal to inspection, Yes normocephalic and Yes atraumatic Ears: hearing grossly normal bilaterally and external ears normal Eyes General: appearance normal, both eyes and all related structures Eyelids: Yes eyelids normal Sclerae: sclerae normal EOM: EOMs intact bilaterally Neck Neck: Yes normal visual inspection and Yes no lymphadenopathy Lymphatic: no lymphadenopathy noted Chest Chest palpation & inspection: normal inspection of the chest Resp Other: faint inspiratory bibasilar crackles Effort & Inspection: normal respiratory effort, able to speak in complete sentences, no audible wheezes, no cough, no stridor, not tachypneic, no tripod positioning and no use of accessory muscles Cardio Jugular venous distension: no JVD Rate: regular rate Rhythm: regular rhythm Skin Other: warm, dry General skin exam: no rashes or lesions noted Neuro General: patient oriented x3 Cranial nerves: Yes Normal hearing present Cognition (Neuro): normal cognition Gait exam (Neuro): Normal gait present Extrem General: Yes normal to inspection, Yes capillary refill normal, Yes no clubbing, cyanosis or edema and Yes no pedal edema Psych Appearance: grossly normal and well kempt Speech and movement: Normal speech and movement present and Clear speech present Affect: normal affect Attitude: cooperative Thought process: Normal thought process present Thought content: Normal thought content present Insight: Good insight present (Psych) Judgement: Good judgement present (Psych) Results Reviewed Results Reviewed: [address] [address] [address] Scan Report Signed Patient: Nick Oliva MR#: [id number] : 1945 Acct:[id number] Age/Sex: 79 / M ADM Date: 01/14/25 Loc: .CT Attending Dr: Kaitlynn Epps NP Ordering Physician: Kaitlynn Epps NP Date of Service: 01/14/25 Procedure(s): CT chest wo IV con Accession Number(s): [id number] cc: Aliyah Luna; Kaitlynn Epps NP~ Report Number: [id number]: Total DLP = 174.00 mGy-cm Reason for Exam: R91.8 - Other nonspecific abnormal finding of lung field EXAMINATION: CT CHEST WITHOUT CONTRAST CLINICAL INFORMATION: R91.8 - Other nonspecific abnormal finding of lung field COMPARISON: 01/09/2024 TECHNIQUE: Multidetector volumetric CT imaging of the chest was done. Axial MIP volume rendering provided. Sagittal and coronal reformatted images were obtained. This CT examination was performed using dose optimization techniques as appropriate, variously including the following: *Automated exposure control *Adjustment of mA and/or kV according to patient size (this includes techniques or standardized protocols for targeted exams where dose is matched to indication/reason for exam; i.e. extremities or head) *Use of iterative reconstruction technique FINDINGS: LUNGS: A few small 1-3 mm pulmonary nodules present on the prior examination are stable. New small lenticular shaped nodules are present along the upper right major fissure consistent with intrapulmonary lymph nodes. Perivascular thickening in the posterior right apex is similar to the prior. Mild coarse markings are also seen in the anterior left apex, similar to the prior. MEDIASTINUM: The mediastinum is normal. CORONARY ARTERY CALCIFICATION: Dense PLEURA: There is mild thickening of the major fissure on the right with the apex. AXILLA: No lymphadenopathy. UPPER ABDOMEN: Low attenuating lesion in the medial hepatic segment is stable, likely cyst or hemangioma. OSSEOUS STRUCTURES: There are mild degenerative changes in the thoracic spine CT/CT chest wo IV con IMPRESSION: Stable small pulmonary nodules requiring no further follow-up. There is mild thickening of the upper portion of the right major thick fissure probably related to mild chronic interstitial changes in the posterior right apex. Fleischner guidelines were followed. 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 Encouraged use of albuterol MDI for wheezing as well as take lasix for the next three days due to abnormal respiratory exam suggestive of fluid overload. He is aware to call if symptoms do not improve or worsen. Will send nebulizer for home use with albuterol solution. Reviewed chest CT 02/05 which demonstrated stable small pulmonary nodules requiring no further follow-up. All questions were answered and patient is in agreement of plan. Will follow up in 3 months or sooner if needed. Medications: New albuterol sulfate 2.5 mg (3 mL) inhalation Q4-6H PRN 75 mL 3RF shortness of breath or wheezing Coding Level of Care Code Est Pt Level 4 (45981) Diagnoses COPD (chronic obstructive pulmonary disease) J44.9 Chronic bronchitis type: unspecified Obstructive sleep apnea G47.33 Multiple pulmonary nodules R91.8
[2025-02-15 10:05] VITALS: BP 128/60; PULSE 43; O2SAT 96; BMI 28.3
--- OUTSIDE RECORDS SUMMARY | 2025-02-15 11:27 | XMS_ITS | Clinical Summary ---
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
== END 2025-02-15 10:42 | disposition home or self-care (01) ==
LOC: HO.HPSW 09:58
PROVIDERS: PCP Physician Assistant Medical; Visit Provider Nurse Practitioner Family
DX: J44.9 Chronic obstructive pulmonary disease, unspecified (principal); G47.33 Obstructive sleep apnea (adult) (pediatric); R91.8 Other nonspecific abnormal finding of lung field
CPT/HCPCS: 99214

== ENCOUNTER → 2025-02-15 09:58 | Outpatient (BNVA) | payer MEDICARE, OTHER, SELFPAY | PROVIDERS: PCP Physician Assistant Medical; Visit Provider Nurse Practitioner Family | DX: R91.8 Other nonspecific abnormal finding of lung field (principal); G47.33 Obstructive sleep apnea (adult) (pediatric); J44.9 Chronic obstructive pulmonary disease, unspecified; Z87.891 Personal history of nicotine dependence | CPT/HCPCS: 99212 ==